=== PATIENT | female | born 1960 | race Caucasian/White ===

== ENCOUNTER → 2017-09-04 16:28 | Outpatient (CLI) | payer OTHER, SELFPAY ==
[2017-09-04 17:16] LABS: Absolute Lymphocyte Count 2.36 X10^3/ul (0.83-4.51); Absolute Neutrophil Count 2.8 X10^3/uL (2.0-7.7); Basophil# 0.01 X10^3/uL; Basophil% 0.2 % (0-1); Eosinophil# 0.15 X10^3/uL; Eosinophils% 2.6 % (0-5); Hematocrit 37.9 % (37-47); Hemoglobin 12.4 g/dl (12.0-15.0); Lymphocyte # 2.36 X10^3/ul (4.0); Mean Corp Hgb Conc 32.7 g/gl (32-36); Mean Corpuscular Hgb 32.2 pg (27.0-32.0); Mean Corpuscular Volume 98.4 fL (81-99); Mean Platelet Vol. 9.3 fl (6.2-12.0); Monocyte# 0.42 X10^3/uL; Monocyte% 7.3 % (0-10); Neutrophil # 2.81 X10^3/uL (2.7-7.7); Neutrophil % 48.9 % (47-70); Platelet Count 292 K/mm3 (150-450); RBC Distribution Width CV 12.6 % (11.6-14.6); RBC Distribution Width SD 44.8 fl (35.1-43.9); Red Blood Count 3.85 M/mm3 (4.2-5.4); White Blood Count 5.8 K/mm3 (4.4-11.0)
[2017-09-04 17:21] LABS: POSITIVE COUNT NO; POSITIVE DIFFERENTIAL NO
[2017-09-04 17:22] LABS: POSITIVE MORPHOLOGY NO
[2017-09-04 17:55] LABS: Vitamin D,25 Hydroxy 21.6 ng/mL (29.95-100.01)
[2017-09-04 18:01] LABS: ALB/GLOB Ratio 1.1 RATIO (0.9-2.4); AST(SGOT) 32 U/L (15-37); Alanine Aminotransfer ALT/SGPT 19 U/L (13-56); Albumin, Serum 3.6 g/dL (3.2-5.0); Alkaline Phosphatase 109 U/L (45-117); Anion Gap 10 (5-15); BUN 19 mg/dL (7-18); BUN/Creat Ratio 20.1 RATIO (10-20); Calcium,Total 8.1 mg/dL (8.5-10.1); Chloride 107 mmol/L (98-107); Creatinine, Serum 0.94 mg/dL (0.55-1.02); EST Glomerular Filtration Rate 65 mL/min (>60); Est Glom Filt Rate - Afr Amer 79 mL/min (>60); Globulin 3.4 g/dL (2.2-4.2); Glucose 115 mg/dL (74-106); Potassium 3.5 mmol/L (3.5-5.1); Sodium Level 143 mmol/L (136-145); Thyroid Stim Hormone (TSH) 0.87 uIU/mL (0.358-3.74)
[2017-09-06 11:04] LABS: Hep C Antibodies <0.1 s/co ratio (0.0-0.9)
== END ==
PROVIDERS: Family Provider Family Medicine Geriatric Medicine; PCP Family Medicine Geriatric Medicine; Visit Provider Family Medicine Geriatric Medicine
DX: E55.9 Vitamin D deficiency, unspecified (principal); R53.83 Other fatigue; Z13.89 Encounter for screening for other disorder
CPT/HCPCS: 36415; 80053; 82306; 84443; 85025; 86803

== ENCOUNTER → 2017-09-12 11:43 | Outpatient (CLI) | payer OTHER, SELFPAY ==
--- NOTE | 2017-09-12 | LES_PTH ---
PATIENT: PORTER MUSA LOC: POL[facility]3 U#:[id number] AGE/SX: 64/F ROOM: RE09/12/[address]: Dr. Renato Bonilla MD : 1960 BED: DIS: SPEC #: [id number] RECD: 09/12/17 14:31 STATUS: DELORES MEGHAN #: [id number] TAHIRA: 09/12/17 00:[address]: Renato Bonilla [facility] DEPT: SURGICAL PATHOLOGY RECD BY: Kristi Tate Tissues: Skin of forehead Procedures: Surgery Specimen Level IV HEADER OPERATION: Not noted PRE-OP DIAGNOSIS: L98.9 TISSUE SUBMITTED: Forehead MICROSCOPIC DIAGNOSIS Forehead lesion, shave biopsy: Solar elastosis. Consistent with lentigo. Negative for malignancy. SJ:vik 09/13/17 MICROSCOPIC DESCRIPTION Slides are reviewed. GROSS DESCRIPTION Received is one container labeled with the patient's name and not further designated. The specimen consists of a light marshall shave biopsy of skin measuring 0.6 x 0.5 x 0.1 cm. The specimen is totally submitted in one cassette. / AM:vik 09/12/17 TC:5 [facility]: [id number]
== END ==
PROVIDERS: Family Provider Family Medicine Geriatric Medicine; PCP Family Medicine Geriatric Medicine; Visit Provider Family Medicine Geriatric Medicine
DX: L57.8 Other skin changes due to chronic exposure to nonionizing radiation (principal)
CPT/HCPCS: 88305

== ENCOUNTER → 2018-09-05 16:22 | Outpatient (CLI) | payer OTHER, SELFPAY ==
[2018-09-05 16:51] LABS: Absolute Lymphocyte Count 2.05 X10^3/ul (0.83-4.51); Absolute Neutrophil Count 3.2 X10^3/uL (2.0-7.7); Basophil# 0.03 X10^3/uL; Basophil% 0.5 % (0-1); Eosinophil# 0.13 X10^3/uL; Eosinophils% 2.2 % (0-5); Hematocrit 42.5 % (37-47); Hemoglobin 13.6 g/dl (12.0-15.0); Lymphocyte # 2.05 X10^3/ul (4.0); Lymphocyte % 34.8 % (19-41); Mean Corpuscular Hgb 31.7 pg (27.0-32.0); Mean Corpuscular Volume 99.1 fL (81-99); Mean Platelet Vol. 9.5 fl (6.2-12.0); Monocyte# 0.49 X10^3/uL; Monocyte% 8.3 % (0-10); Neutrophil # 3.18 X10^3/uL (2.7-7.7); Platelet Count 297 K/mm3 (150-450); RBC Distribution Width CV 12.8 % (11.6-14.6); RBC Distribution Width SD 46.4 fl (35.1-43.9); Red Blood Count 4.29 M/mm3 (4.2-5.4); White Blood Count 5.9 K/mm3 (4.4-11.0)
[2018-09-05 16:54] LABS: POSITIVE COUNT NO; POSITIVE DIFFERENTIAL NO; POSITIVE MORPHOLOGY NO
[2018-09-05 17:28] LABS: Vitamin D,25 Hydroxy 25.4 ng/mL (29.95-100.01)
[2018-09-05 17:33] LABS: ALB/GLOB Ratio 1.2 RATIO (0.9-2.4); AST(SGOT) 22 U/L (15-37); Alanine Aminotransfer ALT/SGPT 21 U/L (13-56); Albumin, Serum 4.1 g/dL (3.2-5.0); Alkaline Phosphatase 107 U/L (45-117); Anion Gap 8 (5-15); BUN 15 mg/dL (7-18); BUN/Creat Ratio 16.6 RATIO (10-20); Calcium,Total 8.8 mg/dL (8.5-10.1); Chloride 105 mmol/L (98-107); EST Glomerular Filtration Rate 69 mL/min (>60); Est Glom Filt Rate - Afr Amer 83 mL/min (>60); Globulin 3.4 g/dL (2.2-4.2); Glucose 122 mg/dL (74-106); Protein, Total 7.5 g/dL (6.4-8.2); Sodium Level 142 mmol/L (136-145); Thyroid Stim Hormone (TSH) 1.24 uIU/mL (0.358-3.74)
== END ==
PROVIDERS: Family Provider Family Medicine Geriatric Medicine; PCP Family Medicine Geriatric Medicine; Visit Provider Family Medicine Geriatric Medicine
DX: E55.9 Vitamin D deficiency, unspecified (principal); R53.83 Other fatigue
CPT/HCPCS: 36415; 80053; 82306; 84443; 85025

== ENCOUNTER → 2018-09-21 12:57 | Outpatient (CLI) | payer OTHER, SELFPAY ==
--- NOTE | 2018-09-21 13:05 | CT_ITS ---
STUDY: LOW DOSE CT LUNG CANCER SCREENING REASON FOR EXAM: Female, 57 years old. 39 pack-year history. Current smoker. RADIATION DOSAGE (If Supplied By Facility): CTDIvol = ( 1.70 ) mGy, DLP = ( 59.13 ) mGycm TECHNIQUE: No contrast was administered. Low dose technique was utilized (average mAS-38 and kVp 120). 1.25 mm axial source images with a slice interval of 1.25-mm were reconstructed in lung windows. 2.5 mm axial source images with a slice interval of 2.5-mm were reconstructed in lung windows. 5.0 mm axial source images with a slice interval of 5.0-mm were reconstructed in soft tissue windows. Nodule measured using lung windows on PACS and/or independent workstation with automated measurement of minimum and maximum diameter. Nodule measurement reported as average diameter rounded to the nearest whole number. Growth is defined as an increase ins size of greater than 1.5 mm. COMPARISON: Chest with left RIBS, May 19, 2015. There is limited visualization of the anterior lower lungs due to scatter artifact from nipple rings. The patient refused to remove these prior to the study. NODULES: Total lung nodules (excluding granulomas): 0 Emphysema: There is diffuse emphysematous changes throughout both lungs. Endobronchial lesion: None Aorta: Minimal atherosclerotic changes of the thoracic aorta without aneurysm. Coronary arteries: None Heart: Normal in size Pulmonary artery: Normal in size Mediastinal nodes: None Other chest and abdominal findings: Minimal degenerative changes of the lumbar spine. CT/Low Dose CT Lung Screening IMPRESSION: Lung-RADS category 1 - Continue annual screening with LDCT in 12 months. IMPORTANT NOTES FOR USE: ACR Lung-RADS Version 1.0 Assessment Categories Release Date: October 28, 2013 Category: Coded 0-4 bases on nodule(s) with highest degree of suspicion. Negative screen is defined as categories 1 and 2; a positive screen is defined as categories 3 and 4. Category 3 and 4A nodules that are unchanged on interval CT should be coded as category 2, and individuals returned to screening in 12 months. Category 4X: Category 3 or 4 nodules with additional imaging findings that increase the suspicion of lung cancer, such as spiculation, GGN that doubles in size in 1 year, enlarged lymph notes, etc. Category Modifiers: S (significant finding unrelated to lung cancer) and C (prior history of treated lung cancer) may be added to the 0-4 Lung-RADS Electronically Signed: Eric Santos DO at 9:25 EDT Tel [phone], Service support ,
== END ==
PROVIDERS: Family Provider Family Medicine Geriatric Medicine; PCP Family Medicine Geriatric Medicine; Referring Provider Family Medicine Geriatric Medicine; Visit Provider Family Medicine Geriatric Medicine
DX: Z87.891 Personal history of nicotine dependence (principal)
CPT/HCPCS: G0297

== ENCOUNTER → 2019-09-09 16:35 | Outpatient (CLI) | payer OTHER, SELFPAY ==
[2019-09-09 17:45] LABS: Absolute Lymphocyte Count 2.23 X10^3/uL (0.83-4.51); Absolute Neutrophil Count 2.9 X10^3/uL (2.0-7.7); Basophil# 0.04 X10^3/uL; Basophil% 0.7 % (0-1); Eosinophil# 0.19 X10^3/uL; Eosinophils% 3.2 % (0-5); Hematocrit 41.2 % (37-47); Hemoglobin 13.5 g/dL (12.0-15.0); Lymphocyte # 2.23 X10^3/ul (4.0); Lymphocyte % 38.1 % (19-41); Mean Corp Hgb Conc 32.8 g/dL (32-36); Mean Corpuscular Hgb 31.6 pg (27.0-32.0); Mean Corpuscular Volume 96.5 fL (81-99); Mean Platelet Vol. 9.3 fl (6.2-12.0); Monocyte# 0.52 X10^3/uL; Monocyte% 8.9 % (0-10); NRBC Flagged by Analyzer 0 % (0-5); Neutrophil # 2.86 X10^3/uL (2.7-7.7); Neutrophil % 48.9 % (47-70); Platelet Count 292 K/mm3 (150-450); RBC Distribution Width CV 12.9 % (11.6-14.6); RBC Distribution Width SD 46.1 fl (35.1-43.9); Red Blood Count 4.27 M/mm3 (4.2-5.4); White Blood Count 5.9 K/mm3 (4.4-11.0)
[2019-09-09 17:59] LABS: Vitamin D,25 Hydroxy 55.8 ng/mL
[2019-09-09 18:06] LABS: AST(SGOT) 32 U/L (15-37); Alanine Aminotransfer ALT/SGPT 26 U/L (13-56); Albumin, Serum 3.7 g/dL (3.2-5.0); Alkaline Phosphatase 102 U/L (45-117); Anion Gap 3 (5-15); BUN 20 mg/dL (7-18); Calcium,Total 8.9 mg/dL (8.5-10.1); Chloride 110 mmol/L (98-107); Creatinine, Serum 0.91 mg/dL (0.55-1.02); EST Glomerular Filtration Rate 68 mL/min (>60); Est Glom Filt Rate - Afr Amer 82 mL/min (>60); Globulin 3.6 g/dL (2.2-4.2); Glucose 109 mg/dL (74-106); Protein, Total 7.3 g/dL (6.4-8.2); Sodium Level 140 mmol/L (136-145); Thyroid Stim Hormone (TSH) 1.52 uIU/mL (0.358-3.74)
== END ==
PROVIDERS: PCP Family Medicine Geriatric Medicine; Visit Provider Family Medicine Geriatric Medicine
DX: I10 Essential (primary) hypertension (principal); E55.9 Vitamin D deficiency, unspecified
CPT/HCPCS: 36415; 80053; 82306; 84443; 85025

== ENCOUNTER → 2020-04-10 09:34 | Outpatient (CLI) | payer OTHER, SELFPAY ==
--- NOTE | 2020-04-10 09:38 | RAD_ITS ---
STUDY: X-RAY - CERVICAL SPINE REASON FOR EXAM: Female, 59 years old. UPPER BACK AND NECK PAIN, NO INJURY TECHNIQUE: 3 view(s) of the cervical spine were obtained. COMPARISON: None FINDINGS: Normal anterior atlantoaxial articulation. Normal odontoid process. Straightening of the C-spine curve. Normal vertebral bodies and endplates. Minimal disc space height narrowing at C4-C5, C5-C6 and C6-C7 disc space levels. The soft tissue structures are unremarkable. RAD/Cerv Spine 2 or 3 Views IMPRESSION: 1. Minimal disc space height narrowing at C4-C5, C5-C6 and C6-C7 disc space levels. 2. No acute osseous abnormality of the cervical spine. Electronically Signed: Loc Shoemaker MD at 12:06 EDT , Service support ,
--- NOTE | 2020-04-10 09:38 | RAD_ITS ---
STUDY: X-RAY - THORACIC SPINE REASON FOR EXAM: Female, 59 years old. Upper back pain and neck pain. No injury. TECHNIQUE: 3 view(s) of the thoracic spine were obtained. COMPARISON: None. FINDINGS: Normal kyphosis of the thoracic spine. There is no substantial scoliosis. Normal thoracic vertebrae and endplates. Normal disc space heights. The soft tissue structures are unremarkable. RAD/Thoracic Spine 3 Views IMPRESSION: Normal x-ray examination of the thoracic spine. Electronically Signed: Loc Shoemaker MD at 16:05 EDT , Service support ,
== END ==
PROVIDERS: PCP Family Medicine Geriatric Medicine; Referring Provider Family Medicine Geriatric Medicine; Visit Provider Family Medicine Geriatric Medicine
DX: M54.9 Dorsalgia, unspecified (principal)
CPT/HCPCS: 72040; 72072

== ENCOUNTER → 2020-09-09 16:28 | Outpatient (CLI) | payer OTHER, SELFPAY ==
[2020-09-09 17:27] LABS: Absolute Lymphocyte Count 2.09 X10^3/uL (0.83-4.51); Basophil# 0.03 X10^3/uL; Basophil% 0.5 % (0-1); Eosinophil# 0.16 X10^3/uL; Eosinophils% 2.8 % (0-5); Hematocrit 37.8 % (37-47); Hemoglobin 12.3 g/dL (12.0-15.0); Lymphocyte # 2.09 X10^3/ul (4.0); Mean Corp Hgb Conc 32.5 g/dL (32-36); Mean Corpuscular Hgb 31.8 pg (27.0-32.0); Mean Corpuscular Volume 97.7 fL (81-99); Mean Platelet Vol. 9.7 fl (6.2-12.0); Monocyte# 0.48 X10^3/uL; Monocyte% 8.3 % (0-10); NRBC Flagged by Analyzer 0 % (0-5); Neutrophil # 3.02 X10^3/uL (2.7-7.7); Neutrophil % 52.1 % (47-70); Platelet Count 306 K/mm3 (150-450); RBC Distribution Width CV 12.6 % (11.6-14.6); RBC Distribution Width SD 44.9 fl (35.1-43.9); Red Blood Count 3.87 M/mm3 (4.2-5.4); White Blood Count 5.8 K/mm3 (4.4-11.0)
[2020-09-09 17:45] LABS: Vitamin D,25 Hydroxy 41.6 ng/mL
[2020-09-09 18:07] LABS: ALB/GLOB Ratio 1.2 RATIO (0.9-2.4); AST(SGOT) 29 U/L (15-37); Alanine Aminotransfer ALT/SGPT 26 U/L (13-56); Albumin, Serum 3.8 g/dL (3.2-5.0); Alkaline Phosphatase 103 U/L (45-117); Anion Gap 6 (5-15); BUN 14 mg/dL (7-18); BUN/Creat Ratio 15.3 RATIO (10-20); Calcium,Total 9.1 mg/dL (8.5-10.1); Chloride 106 mmol/L (98-107); Creatinine, Serum 0.92 mg/dL (0.55-1.02); EST Glomerular Filtration Rate 67 mL/min (>60); Est Glom Filt Rate - Afr Amer 81 mL/min (>60); Globulin 3.3 g/dL (2.2-4.2); Glucose 93 mg/dL (74-106); Potassium 3.9 mmol/L (3.5-5.1); Protein, Total 7.1 g/dL (6.4-8.2); Sodium Level 139 mmol/L (136-145)
== END ==
PROVIDERS: PCP Family Medicine Geriatric Medicine; Visit Provider Family Medicine Geriatric Medicine
DX: I10 Essential (primary) hypertension (principal); E55.9 Vitamin D deficiency, unspecified
CPT/HCPCS: 36415; 80053; 82306; 84443; 85025

== ENCOUNTER → 2020-09-24 16:12 | Outpatient (CLI) | payer OTHER, SELFPAY ==
[2020-09-24 17:42] LABS: Anion Gap 8 (5-15); BUN 26 mg/dL (7-18); BUN/Creat Ratio 27.4 RATIO (10-20); Chloride 100 mmol/L (98-107); Creatinine, Serum 0.95 mg/dL (0.55-1.02); EST Glomerular Filtration Rate 64 mL/min (>60); Est Glom Filt Rate - Afr Amer 78 mL/min (>60); Glucose 83 mg/dL (74-106); Potassium 3.7 mmol/L (3.5-5.1); Sodium Level 138 mmol/L (136-145)
== END ==
PROVIDERS: PCP Family Medicine Geriatric Medicine; Visit Provider Family Medicine Geriatric Medicine
DX: I10 Essential (primary) hypertension (principal)
CPT/HCPCS: 36415; 80048

== ENCOUNTER → 2021-06-30 16:31 | Outpatient (CLI) | payer OTHER, SELFPAY ==
[2021-06-30 17:00] LABS: Anion Gap 6 (5-15); BUN 25 mg/dL (7-18); BUN/Creat Ratio 26.6 RATIO (10-20); Calcium,Total 8.9 mg/dL (8.5-10.1); Chloride 103 mmol/L (98-107); Creatinine, Serum 0.94 mg/dL (0.55-1.02); EST Glomerular Filtration Rate 65 mL/min (>60); Est Glom Filt Rate - Afr Amer 78 mL/min (>60); Glucose 98 mg/dL (74-106); Potassium 3.5 mmol/L (3.5-5.1); Sodium Level 139 mmol/L (136-145)
== END ==
PROVIDERS: PCP Family Medicine Geriatric Medicine; Visit Provider Family Medicine Geriatric Medicine
DX: I10 Essential (primary) hypertension (principal)
CPT/HCPCS: 36415; 80048

== ENCOUNTER 2021-08-11 16:53 | Outpatient (CLI) | payer OTHER, SELFPAY ==
[2021-08-11 17:53] LABS: Anion Gap 5 (5-15); BUN 19 mg/dL (7-18); BUN/Creat Ratio 22.5 RATIO (10-20); Calcium,Total 8.8 mg/dL (8.5-10.1); Chloride 106 mmol/L (98-107); Creatinine, Serum 0.85 mg/dL (0.55-1.02); EST Glomerular Filtration Rate 73 mL/min (>60); Est Glom Filt Rate - Afr Amer 89 mL/min (>60); Glucose 93 mg/dL (74-106); Potassium 4.3 mmol/L (3.5-5.1); Sodium Level 139 mmol/L (136-145)
[2021-08-11 18:10] LABS: Absolute Lymphocyte Count 2.16 X10^3/uL (0.83-4.51); Absolute Neutrophil Count 3.9 X10^3/uL (2.0-7.7); Basophil# 0.03 X10^3/uL; Basophil% 0.4 % (0-1); Eosinophil# 0.12 X10^3/uL; Eosinophils% 1.8 % (0-5); Hematocrit 36.7 % (37-47); Hemoglobin 12.6 g/dL (12.0-15.0); Lymphocyte # 2.16 X10^3/ul (0.83-4.51); Lymphocyte % 31.8 % (19-41); Mean Corp Hgb Conc 34.3 g/dL (32-36); Mean Corpuscular Hgb 32.9 pg (27.0-32.0); Mean Corpuscular Volume 95.8 fL (81-99); Mean Platelet Vol. 9.4 fl (6.2-12.0); Monocyte# 0.53 X10^3/uL; Monocyte% 7.8 % (0-10); NRBC Flagged by Analyzer 0 % (0-5); Neutrophil # 3.93 X10^3/uL (2.7-7.7); Neutrophil % 57.9 % (47-70); Platelet Count 280 K/mm3 (150-450); RBC Distribution Width CV 13.5 % (11.6-14.6); RBC Distribution Width SD 47.7 fl (35.1-43.9); Red Blood Count 3.83 M/mm3 (4.2-5.4); White Blood Count 6.8 K/mm3 (4.4-11.0)
== END 2021-08-11 23:59 | disposition home or self-care (01) ==
LOC: POLAB3 16:54
PROVIDERS: PCP Family Medicine Geriatric Medicine; Visit Provider Family Medicine Geriatric Medicine
DX: D64.9 Anemia, unspecified (principal)
CPT/HCPCS: 36415; 80048; 85025

== ENCOUNTER 2021-09-27 17:17 | Outpatient (CLI) | payer OTHER, SELFPAY ==
--- NOTE | 2021-09-27 17:30 | CT_ITS ---
STUDY: LOW DOSE CT LUNG CANCER SCREENING REASON FOR EXAM: Female, 60 years old. Long history of smoking. Screening for lung cancer. TECHNIQUE: No contrast was administered. Low dose technique was utilized (average mAS-38 and kVp 120). 1.25 mm axial source images with a slice interval of 1.25-mm were reconstructed in lung windows. 2.5 mm axial source images with a slice interval of 2.5-mm were reconstructed in lung windows. 5.0 mm axial source images with a slice interval of 5.0-mm were reconstructed in soft tissue windows. Nodule measured using lung windows on PACS and/or independent workstation with automated measurement of minimum and maximum diameter. Nodule measurement reported as average diameter rounded to the nearest whole number. Growth is defined as an increase ins size of greater than 1.5 mm. COMPARISON: 09/21/2018. NODULES: There is hyperinflation and centrilobular emphysema of the lungs consistent with chronic obstructive lung disease (COPD). There are no suspicious lung nodules There are no endobronchial lesions. There is no demonstrated pleural abnormality. Normal heart and pericardium. Normal mediastinum. Normal hilar regions. Normal unenhanced pulmonary arteries. Normal aorta arch and descending thoracic aorta. Normal osseous structures. There is no demonstrated abnormality of the visualized upper abdomen. CT/Low Dose CT Lung Screening IMPRESSION: Lung-RADS category 2. COPD. Benign finding. Recommendation: Routine screening CT scan in one year. IMPORTANT NOTES FOR USE: ACR Lung-RADS Version 1.0 Assessment Categories Release Date: October 28, 2013 Category: Coded 0-4 bases on nodule(s) with highest degree of suspicion. Negative screen is defined as categories 1 and 2; a positive screen is defined as categories 3 and 4. Category 3 and 4A nodules that are unchanged on interval CT should be coded as category 2, and individuals returned to screening in 12 months. Category 4X: Category 3 or 4 nodules with additional imaging findings that increase the suspicion of lung cancer, such as spiculation, GGN that doubles in size in 1 year, enlarged lymph notes, etc. Category Modifiers: S (significant finding unrelated to lung cancer) and C (prior history of treated lung cancer) may be added to the 0-4 Lung-RADS Electronically Signed: Zaki Haider MD at 5:14 EDT ,
== END 2021-09-27 23:59 | disposition home or self-care (01) ==
PROVIDERS: PCP Family Medicine Geriatric Medicine; Visit Provider Family Medicine Geriatric Medicine
DX: F17.210 Nicotine dependence, cigarettes, uncomplicated (principal)
CPT/HCPCS: 71271

== ENCOUNTER 2021-10-07 10:43 | Outpatient (CLI) | payer OTHER, SELFPAY ==
--- NOTE | 2021-10-08 10:32 | PFT ---
INTRODUCTION: The patient is a 61-year-old female that presents for pulmonary function studies secondary to a diagnosis of shortness of breath. Respiratory therapy reported good patient effort. Bronchodilators were used during testing. INTERPRETATION: Forced expiration spirometry demonstrates the presence of a mild large airways obstructive ventilatory defect. There was no significant response to aerosolized bronchodilators. Spirograms are of good quality but do not plateau indicating slow emptying of the lungs. Body plethysmography was performed and reveals lung volumes to be within normal limits. Diffusing capacity by single breath CO is within normal limits. IMPRESSION: Irreversible mild large airways obstructive ventilatory defect with preserved lung volumes and diffusing capacity.
== END 2021-10-07 23:59 | disposition home or self-care (01) ==
PROVIDERS: PCP Family Medicine Geriatric Medicine; Referring Provider Family Medicine Geriatric Medicine; Visit Provider Family Medicine Geriatric Medicine
DX: R06.02 Shortness of breath (principal)
CPT/HCPCS: 94060; 94726; 94729

== ENCOUNTER 2021-10-14 16:35 | Outpatient (CLI) | payer OTHER, SELFPAY ==
[2021-10-14 17:25] LABS: Absolute Lymphocyte Count 1.72 X10^3/uL (0.83-4.51); Absolute Neutrophil Count 3.1 X10^3/uL (2.0-7.7); Basophil# 0.04 X10^3/uL; Basophil% 0.7 % (0-1); Eosinophil# 0.21 X10^3/uL; Eosinophils% 3.7 % (0-5); Hematocrit 41.4 % (37-47); Hemoglobin 13.4 g/dL (12.0-15.0); Lymphocyte # 1.72 X10^3/ul (0.83-4.51); Lymphocyte % 30.4 % (19-41); Mean Corp Hgb Conc 32.4 g/dL (32-36); Mean Corpuscular Hgb 31.4 pg (27.0-32.0); Monocyte# 0.55 X10^3/uL; Monocyte% 9.7 % (0-10); NRBC Flagged by Analyzer 0 % (0-5); Neutrophil # 3.13 X10^3/uL (2.7-7.7); Neutrophil % 55.3 % (47-70); Platelet Count 281 K/mm3 (150-450); RBC Distribution Width CV 12.1 % (11.6-14.6); RBC Distribution Width SD 43.4 fl (35.1-43.9); Red Blood Count 4.27 M/mm3 (4.2-5.4); White Blood Count 5.7 K/mm3 (4.4-11.0)
[2021-10-14 18:03] LABS: Vitamin D,25 Hydroxy 50.1 ng/mL
[2021-10-14 18:10] LABS: ALB/GLOB Ratio 1.1 RATIO (0.9-2.4); AST(SGOT) 23 U/L (15-37); Alanine Aminotransfer ALT/SGPT 24 U/L (13-56); Albumin, Serum 3.8 g/dL (3.2-5.0); Alkaline Phosphatase 98 U/L (45-117); Anion Gap 5 (5-15); BUN 22 mg/dL (7-18); BUN/Creat Ratio 20.6 RATIO (10-20); Calcium,Total 9.2 mg/dL (8.5-10.1); Chloride 106 mmol/L (98-107); Creatinine, Serum 1.07 mg/dL (0.55-1.02); EST Glomerular Filtration Rate 56 mL/min (>60); Est Glom Filt Rate - Afr Amer 68 mL/min (>60); Globulin 3.5 g/dL (2.2-4.2); Glucose 82 mg/dL (74-106); Protein, Total 7.3 g/dL (6.4-8.2); Sodium Level 140 mmol/L (136-145); Thyroid Stim Hormone (TSH) 1.31 uIU/mL (0.358-3.74)
== END 2021-10-14 23:59 | disposition home or self-care (01) ==
LOC: POLAB3 16:36
PROVIDERS: PCP Family Medicine Geriatric Medicine; Visit Provider Family Medicine Geriatric Medicine
DX: I10 Essential (primary) hypertension (principal); E55.9 Vitamin D deficiency, unspecified
CPT/HCPCS: 36415; 80053; 82306; 84443; 85025

== ENCOUNTER 2022-02-17 06:13 | Day surgery (SDC) | payer OTHER, SELFPAY ==
[2022-02-17] VITALS (8 sets, daily range): BP systolic 91–145; BP diastolic 59–81; PULSE 66–77; RESP 14–16; TEMP 36.2–36.6; O2SAT 100; BMI 20.7
--- NOTE | 2022-02-17 06:31 | PCM.HP.STD ---
HPI - General General Date of Admission: 02/17/22 Date of Service: 02/17/22 Chief Complaint: Screening colonoscopy HPI Monica MUSA, is a 61 F who presents for a screening colonoscopy. She has a past medical history of mild hypertension and mild anemia. Her blood pressure is controlled she does take a daily iron supplement. She is not having any problems with her bowels. She is not have any nausea, vomiting or diarrhea. She has not had any bleeding. She is not have any abdominal pain. Overall she is in very good health. All other 16 review of systems are negative except as pertinent positive mentioned [facility] Medical History (Updated 02/15/22 @ 11:15 by Lian Montenegro) Arthritis Back pain Easy bruising Excessive bleeding Former smoker History of IBS Hyperlipidemia Hypertension Muscle spasm Post-menopausal Restless legs Wears contact lenses Home Medications cyclobenzaprine 10 mg tablet 10 mg PO HS 11/12/21 [History Last Taken Unknown] iron 18 mg tablet 18 mg PO DAILY 11/12/21 [History Last Taken Unknown] losartan 100 mg-hydrochlorothiazide 12.5 mg tablet 0.5 tab PO DAILY 11/12/21 [History Last Taken Unknown] magnesium oxide 400 mg PO DAILY 11/12/21 [History Last Taken Unknown] ascorbic acid (vitamin C) 500 mg tablet (Vitamin C) 500 mg PO DAILY 02/15/22 [History Last Taken Unknown] cholecalciferol (vitamin D3) 25 mcg (1,000 unit) tablet (Vitamin D3) 25 mcg PO DAILY 02/15/22 [History Last Taken Unknown] zinc 50 mg tablet 50 mg PO DAILY 02/15/22 [History Last Taken Unknown] Allergy/AdvReac Type Severity Reaction Status Date / Time No Known Allergies Allergy Verified 02/17/22 06:32 Surgical History (Updated 02/15/22 @ 11:15 by Lian Montenegro) Hx of colonoscopy Hx of hysterectomy Social History (Updated 11/12/21 @ 10:17 by Addie Bryan) Smoking Status: Former smoker ROS Review of Systems ROS Unobtainable: other Constitutional Constitutional: Denies fatigue, fever(s), poor appetite, weight gain or weight loss ENT HEENT: Denies mouth lesions Cardiovascular Cardiovascular: Denies abdominal bloating, abdominal edema or abdominal pain Respiratory/Chest Respiratory/Chest: Denies change in mental status, change in phlegm color, chest congestion or chest tightness Gastrointestinal Gastrointestinal: Denies belching, bloating, change in bowel habits, change in stool character, chewing difficulty, coffee ground emesis, constipation, cramping, diarrhea, dyspepsia, dysphagia, early satiety, excessive flatus, fecal incontinence, heartburn, hematemesis, hematochezia, hemorrhoids, loose stools, melena, nausea, odynophagia, rectal bleeding, tenesmus, vomiting or weight changes Genitourinary Genitourinary: Denies abdominal discomfort, burning urination or itching Musculoskeletal Musculoskeletal: Reports as per HPI; Denies muscle weakness or myalgias Integumentary Integumentary: Denies jaundice Neurologic Neurologic: Denies lack of coordination or weakness Psychiatric Psychiatric: Denies confusion, depression, memory loss, mood swings, paranoia or suicidal ideation Endocrine Endocrinology: Denies systems reviewed and no addt'l complaints, except as documented Hematologic/Lymphatic Hematologic/Lymphatic: Denies anemia, easy bleeding, easy bruising or lymphadenopathy Allergic/Immunologic Allergic/Immunologic: Denies systems reviewed and no addt'l complaints, except as documented Physical Exam Const alert General Appearance: cooperative Orientation / Consciousness: oriented to person HEENT hearing grossly normal bilaterally Head and Scalp: normal to inspection Face and Sinus: face symmetric Nose: external nose normal Mouth: oral and palatal mucosa normal Eyes conjunctivae normal General Eye: normal appearance of both eyes Neck full ROM General: normal visual inspection Lymph Lymphatic: no lymphadenopathy noted Chest inspection of chest normal and palpation of chest normal Chest: symmetrical chest wall rise Resp normal respiratory effort Effort and Inspection: able to speak in complete sentences Cardio regular rate GI non-distended Percussion: normal to percussion Rectal Exam: deferred Neuro Speech: speech normal Gait (Neuro): normal gait Assessment & Plan Assessment/Plan (1) Encounter for screening for malignant neoplasm of colon: PLAN: She will undergo screening colonoscopy. She was explained alternatives, risk, benefits including not withstanding bleeding, infection, sepsis, perforation, need for emergent surgery and . She will have an ASA of 1.
[2022-02-17] MEDS: Lactated Ringers 1,000 ML 15 ML IV (06:44)
--- NOTE | 2022-02-17 07:34 | OP.COLON_ITS ---
Patient Name: Amie Ryan Procedure Date: 02/17/2022 7:05 AM Date of : 1960 Age: 61 Procedure: Colonoscopy Indications: Screening for colorectal malignant neoplasm Providers: José Luis Leach DO Referring MD: Renato Bonilla MD Medicines: Monitored Anesthesia Care Patient Profile: This is a 61 year old female. Refer to note in patient chart for documentation of history and physical. Last Colonoscopy: 5 years ago. Complications: No immediate complications. Procedure: Pre-Anesthesia Assessment: - Prior to the procedure, a History and Physical was performed, and patient medications and allergies were reviewed. The patient is competent. The risks and benefits of the procedure and the sedation options and risks were discussed with the patient. All questions were answered and informed consent was obtained. Patient identification and proposed procedure were verified by the physician in the pre-procedure area. Mental Status Examination: alert and oriented. Airway Examination: normal oropharyngeal airway and neck mobility. Respiratory Examination: clear to auscultation. CV Examination: normal. Prophylactic Antibiotics: The patient does not require prophylactic antibiotics. Prior Anticoagulants: The patient has taken no previous anticoagulant or antiplatelet agents. ASA Grade Assessment: II - A patient with mild systemic disease. After reviewing the risks and benefits, the patient was deemed in satisfactory condition to undergo the procedure. The anesthesia plan was to use moderate sedation / analgesia (conscious sedation). Immediately prior to administration of medications, the patient was re-assessed for adequacy to receive sedatives. The heart rate, respiratory rate, oxygen saturations, blood pressure, adequacy of pulmonary ventilation, and response to care were monitored throughout the procedure. The physical status of the patient was re-assessed after the procedure. After I obtained informed consent, the scope was passed under direct vision. Throughout the procedure, the patient's blood pressure, pulse, and oxygen saturations were monitored continuously. The colonoscope was introduced through the anus and advanced to the cecum, identified by appendiceal orifice and ileocecal valve. The colonoscopy was performed with ease. The patient tolerated the procedure well. The quality of the bowel preparation was good. Scope In: 7:15:41 AM Scope Withdrawal Time 0 hours 8 minutes 23 seconds Scope Out: 7:29:44 AM Total Procedure Duration Time 0 hours 14 minutes 3 seconds Findings: The perianal and digital rectal examinations were normal. The colon (entire examined portion) appeared normal. No additional abnormalities were found on retroflexion. Impression: - The entire examined colon is normal. - No specimens collected. Recommendation: - Discharge patient to home. - Resume previous diet. - Continue present medications. - Repeat colonoscopy in 5 years for surveillance. Procedure Code(s): --- Professional --- G0121, Colorectal cancer screening; colonoscopy on individual not meeting criteria for high risk CPT copyright 2017 [employer]. All rights reserved. The codes documented in this report are preliminary and upon road engineer review may be revised to meet current compliance requirements. José Luis Leach DO 02/17/2022 7:34:36 AM This report has been signed electronically. Number of Addenda: 1 Note Initiated On: 02/17/2022 7:05 AM Addendum Number: 1 Addendum Date: 04/07/2022 6:13:55 AM MAC was used as sedation for this procedure. José Luis Leach DO 04/07/2022 6:13:59 AM This report has been signed electronically.
--- NOTE | 2022-02-17 07:35 | OP.CCLET_ITS ---
04/07/2022 Renato Bonilla MD [address] [place] [address] Re : Colonoscopy procedure for Amie Ryan Dear Dr. Bonilla This procedure was performed on January. My impressions and recommendations are as follows: Impressions : - The entire examined colon is normal. - No specimens collected. Recommendations : - Discharge patient to home. - Resume previous diet. - Continue present medications. - Repeat colonoscopy in 5 years for surveillance. My findings are described in the full procedure note, which is enclosed. If I can be of further assistance, please feel free to contact me at . Sincerely, José Luis Leach DO 02/17/2022 7:34:36 AM This report has been signed electronically.
--- NOTE | 2022-02-17 07:42 | EKG12_ITS ---
Test Reason : RYTHMN CHANGE Blood Pressure : / mmHG Vent. Rate : 066 BPM Atrial Rate : 066 BPM P-R Int : 210 ms QRS Dur : 078 ms QT Int : 432 ms P-R-T Axes : 267 044 071 degrees QTc Int : 452 ms Unusual P axis, possible ectopic atrial rhythm Low voltage QRS (Limb Leads) Septal infarct , age undetermined Abnormal ECG Confirmed by NIELS CUI, SAM ([id number]), editorial project manager LAUREN MERAZ ([id number]) on 02/21/2022 9:07:43 AM Referred By: Renato Bonilla Confirmed By:SAM BOWSER MD
== END 2022-02-17 08:33 | disposition home or self-care (01) ==
LOC: EN 06:14 → AC 06:15
PROVIDERS: PCP Family Medicine Geriatric Medicine; Referring Provider Family Medicine Geriatric Medicine; Visit Provider Internal Medicine Gastroenterology
PROC: 0DJD8ZZ Inspection of Lower Intestinal Tract, Via Natural or Artificial Opening Endoscopic (ICD-10-PCS; CPT 45378; principal; 2022-02-17 07:10)
DX: Z12.11 Encounter for screening for malignant neoplasm of colon (principal); D64.9 Anemia, unspecified; I10 Essential (primary) hypertension; E78.5 Hyperlipidemia, unspecified; Z78.0 Asymptomatic menopausal state; Z79.899 Other long term (current) drug therapy; Z87.891 Personal history of nicotine dependence
CPT/HCPCS: 45378; 93005; J7120; J2405

== ENCOUNTER → 2022-09-22 | Outpatient (CLI) | payer OTHER, SELFPAY ==
[2022-09-22 18:24] LABS: Absolute Lymphocyte Count 1.77 X10^3/uL (0.83-4.51); Absolute Neutrophil Count 3.2 X10^3/uL (2.0-7.7); Basophil# 0.04 X10^3/uL; Basophil% 0.7 % (0-1); Eosinophil# 0.11 X10^3/uL; Hemoglobin 13.1 g/dL (12.0-15.0); Lymphocyte # 1.77 X10^3/ul (0.83-4.51); Lymphocyte % 31.8 % (19-41); Mean Corp Hgb Conc 32.8 g/dL (32-36); Mean Corpuscular Hgb 31.8 pg (27.0-32.0); Mean Corpuscular Volume 97.1 fL (81-99); Mean Platelet Vol. 9.6 fl (6.2-12.0); Monocyte# 0.44 X10^3/uL; Monocyte% 7.9 % (0-10); NRBC Flagged by Analyzer 0 % (0-5); Neutrophil # 3.19 X10^3/uL (2.7-7.7); Neutrophil % 57.4 % (47-70); Platelet Count 284 K/mm3 (150-450); RBC Distribution Width CV 12.3 % (11.6-14.6); RBC Distribution Width SD 44.2 fl (35.1-43.9); Red Blood Count 4.12 M/mm3 (4.2-5.4); White Blood Count 5.6 K/mm3 (4.4-11.0)
[2022-09-22 19:05] LABS: Vitamin D,25 Hydroxy 39.7 ng/mL
[2022-09-22 19:18] LABS: ALB/GLOB Ratio 1.2 RATIO (0.9-2.4); AST(SGOT) 29 U/L (15-37); Alanine Aminotransfer ALT/SGPT 18 U/L (13-56); Albumin, Serum 4.2 g/dL (3.2-5.0); Alkaline Phosphatase 81 U/L (45-117); Anion Gap 8 (5-15); BUN 23 mg/dL (7-18); BUN/Creat Ratio 19.2 RATIO (10-20); Calcium,Total 9.4 mg/dL (8.5-10.1); Chloride 106 mmol/L (98-107); EST Glomerular Filtration Rate 49 mL/min (>60); Est Glom Filt Rate - Afr Amer 59 mL/min (>60); Globulin 3.4 g/dL (2.2-4.2); Glucose 106 mg/dL (74-106); Potassium 3.9 mmol/L (3.5-5.1); Protein, Total 7.6 g/dL (6.4-8.2); Sodium Level 139 mmol/L (136-145); Thyroid Stim Hormone (TSH) 0.68 uIU/mL (0.358-3.74)
== END | disposition home or self-care (01) ==
LOC: POLAB3 16:30
PROVIDERS: PCP Family Medicine Geriatric Medicine; Visit Provider Family Medicine Geriatric Medicine
DX: R53.83 Other fatigue (principal); E55.9 Vitamin D deficiency, unspecified
CPT/HCPCS: 36415; 80053; 82306; 84443; 85025

== ENCOUNTER → 2022-11-02 | Outpatient (CLI) | payer OTHER, SELFPAY ==
--- NOTE | 2022-11-01 16:28 | BI_ITS ---
MAMMOGRAPHY - BILATERAL SCREENING REASON FOR EXAM: Female, 62 years old. Routine annual screening examination. PERTINENT HISTORY: Non-contributory. TECHNIQUE: Digital bilateral breast kris (3D mammographic acquisition) in the CC and MLO projections. 2-D mediolateral oblique (MLO) and craniocaudad (CC) views of both breasts were obtained. CAD: Full Field Digital Mammography with Computer Added Detection was performed. COMPARISON: Comparison is made with prior examination October 06, 2016. FINDINGS: Breast Composition: The breasts are extremely dense, which lowers the sensitivity of mammography. There are no dominant masses or suspicious calcifications. No other significant abnormalities are identified. There has been no significant change since the prior study. BI/SCRN MAMM (CAD)W/KRIS BILAT IMPRESSION: Stable bilateral screening mammogram. Yearly follow-up mammogram recommended. (A) ASSESSMENT CATEGORY: BIRADS Category 1: Negative. A letter regarding these results will be sent to the patient by the facility within 30 days. Approximately 10% of breast cancers are not detected by mammography. A normal mammogram should not delay biopsy of a clinically suspicious abnormality. [id number] Electronically Signed: Abdelrahman Garcia MD at 8:40 EDT ,
== END | disposition home or self-care (01) ==
PROVIDERS: PCP Family Medicine Geriatric Medicine; Referring Provider Family Medicine Geriatric Medicine; Visit Provider Family Medicine Geriatric Medicine
DX: Z12.31 Encounter for screening mammogram for malignant neoplasm of breast (principal)
CPT/HCPCS: 77063; 77067

== ENCOUNTER → 2023-01-17 | Outpatient (CLI) | payer OTHER, SELFPAY ==
[2023-01-17 17:42] LABS: Absolute Lymphocyte Count 1.77 X10^3/uL (0.83-4.51); Absolute Neutrophil Count 2.4 X10^3/uL (2.0-7.7); Basophil# 0.04 X10^3/uL; Basophil% 0.8 % (0-1); Eosinophil# 0.18 X10^3/uL; Eosinophils% 3.7 % (0-5); Hematocrit 38.4 % (37-47); Hemoglobin 12.5 g/dL (12.0-15.0); Lymphocyte # 1.77 X10^3/ul (0.83-4.51); Lymphocyte % 36.6 % (19-41); Mean Corp Hgb Conc 32.6 g/dL (32-36); Mean Corpuscular Hgb 31.1 pg (27.0-32.0); Mean Corpuscular Volume 95.5 fL (81-99); Mean Platelet Vol. 9.4 fl (6.2-12.0); Monocyte# 0.41 X10^3/uL; Monocyte% 8.5 % (0-10); NRBC Flagged by Analyzer 0 % (0-5); Neutrophil # 2.42 X10^3/uL (2.7-7.7); Neutrophil % 50.2 % (47-70); Platelet Count 300 K/mm3 (150-450); RBC Distribution Width CV 12.1 % (11.6-14.6); RBC Distribution Width SD 42.4 fl (35.1-43.9); Red Blood Count 4.02 M/mm3 (4.2-5.4); White Blood Count 4.8 K/mm3 (4.4-11.0)
[2023-01-17 18:03] LABS: ALB/GLOB Ratio 1.1 RATIO (0.9-2.4); AST(SGOT) 22 U/L (15-37); Alanine Aminotransfer ALT/SGPT 21 U/L (13-56); Albumin, Serum 3.9 g/dL (3.2-5.0); Alkaline Phosphatase 81 U/L (45-117); Anion Gap 6 (5-15); BUN 20 mg/dL (7-18); Calcium,Total 8.9 mg/dL (8.5-10.1); Chloride 105 mmol/L (98-107); Creatinine, Serum 1.11 mg/dL (0.55-1.02); EST Glomerular Filtration Rate 53 mL/min (>60); Est Glom Filt Rate - Afr Amer 64 mL/min (>60); Globulin 3.5 g/dL (2.2-4.2); Glucose 70 mg/dL (74-106); Magnesium 2.1 mg/dL (1.6-2.6); Phosphorus 3.8 mg/dL (2.5-4.9); Potassium 3.5 mmol/L (3.5-5.1); Protein, Total 7.4 g/dL (6.4-8.2); Sodium Level 139 mmol/L (136-145); Thyroid Stim Hormone (TSH) 0.85 uIU/mL (0.358-3.74)
== END | disposition home or self-care (01) ==
PROVIDERS: PCP Family Medicine Geriatric Medicine; Visit Provider Family Medicine Geriatric Medicine
DX: R42 Dizziness and giddiness (principal)
CPT/HCPCS: 36415; 80053; 83735; 84100; 84443; 85025

== ENCOUNTER → 2023-05-03 | Outpatient (CLI) | payer OTHER, SELFPAY ==
[2023-05-03 16:26] LABS: Absolute Lymphocyte Count 1.64 X10^3/uL (0.83-4.51); Absolute Neutrophil Count 2.6 X10^3/uL (2.0-7.7); Basophil# 0.05 X10^3/uL; Eosinophil# 0.16 X10^3/uL; Eosinophils% 3.3 % (0-5); Hemoglobin 9.6 g/dL (12.0-15.0); Lymphocyte # 1.64 X10^3/ul (0.83-4.51); Mean Corp Hgb Conc 33.1 g/dL (32-36); Mean Corpuscular Hgb 32.4 pg (27.0-32.0); Mean Platelet Vol. 9.5 fl (6.2-12.0); Monocyte% 8.3 % (0-10); NRBC Flagged by Analyzer 0 % (0-5); Neutrophil # 2.57 X10^3/uL (2.7-7.7); Neutrophil % 53.2 % (47-70); Platelet Count 328 K/mm3 (150-450); RBC Distribution Width CV 12.8 % (11.6-14.6); RBC Distribution Width SD 45.2 fl (35.1-43.9); Red Blood Count 2.96 M/mm3 (4.2-5.4); White Blood Count 4.8 K/mm3 (4.4-11.0)
== END | disposition home or self-care (01) ==
PROVIDERS: PCP Family Medicine Geriatric Medicine; Visit Provider Family Medicine Geriatric Medicine
DX: R53.83 Other fatigue (principal)
CPT/HCPCS: 36415; 85025

== ENCOUNTER → 2023-05-29 | Outpatient (CLI) | payer OTHER, SELFPAY ==
[2023-05-29 16:48] LABS: Anion Gap 6 (5-15); BUN 17 mg/dL (7-18); BUN/Creat Ratio 17.6 RATIO (10-20); Calcium,Total 9.2 mg/dL (8.5-10.1); Chloride 106 mmol/L (98-107); Creatinine, Serum 0.96 mg/dL (0.55-1.02); EST Glomerular Filtration Rate 63 mL/min (>60); Est Glom Filt Rate - Afr Amer 76 mL/min (>60); Glucose 90 mg/dL (74-106); Potassium 4.2 mmol/L (3.5-5.1); Sodium Level 140 mmol/L (136-145)
== END | disposition home or self-care (01) ==
LOC: LAB 15:16
PROVIDERS: PCP Family Medicine Geriatric Medicine; Referring Provider Internal Medicine Cardiovascular Disease; Visit Provider Internal Medicine Cardiovascular Disease
DX: I10 Essential (primary) hypertension (principal); R42 Dizziness and giddiness; R55 Syncope and collapse; R53.83 Other fatigue
CPT/HCPCS: 36415; 80048

== ENCOUNTER 2023-06-05 06:11 | Day surgery (SDC) | payer OTHER, SELFPAY ==
--- NOTE | 2023-06-05 | IMM_PTH ---
PATIENT: PORTER MUSA LOC: EN U#:[id number] AGE/SX: 62/F ROOM: RE06/05/[address]: Dr. Jeri Bennett MD : 1960 BED: DIS: 06/05/2023 SPEC #: [id number] RECD: 06/05/23 14:34 STATUS: DELORES REQ #: [id number] TAHIRA: 06/05/23 00:[address]: Jeri Bennett DEPT: IMMUNOHISTOCHEMISTRY RECD BY: Kristi Tate ENTERED: 06/05/23 14:35 SP TYPE: IMMUNO OTHR DR: Dr. Renato Bonilla MD Tissues: A - Pyloric antrum Procedures: H Pylori (initial) PHYSICIAN & INSTITUTION [place] [id number] SPECIMEN INFORMATION: Tissue Source: A - Prepyloric biopsy Clinical Info: Anemia, guaiac positive stools Specimen Number: [id number] CPT code: 18267 METHODOLOGY: Deparaffinized sections of prefer/formalin-fixed tissue or PAP/DQ stained slides are incubated with monoclonal/polyclonal antibodies/oligonucleotide probes. Localization is made via biotin free immunoperoxidase method. Appropriate controls are performed and reacted as expected. Results on target cell population are indicated in the following table: RESULTS: ANTIBODY / CLONE RESULT Block A H Pylori (polyclonal) negative These tests were developed and their performance characteristics determined by [facility]. They may not have been cleared or approved by the [place]. Food and Drug Administration. The FDA has determined that such clearance or approval is not necessary. The above immunohistochemical/dualISH markers are ordered and reviewed by the Pathologist. INTERPRETATION: A. Prepyloric biopsy: Negative for Helicobacter pylori organisms. GARY/willian 06/06/2023
--- NOTE | 2023-06-05 | GASB_PTH ---
PATIENT: PORTER MUSA LOC: EN U#:[id number] AGE/SX: 62/F ROOM: RE06/05/[address]: Dr. Jeri Bennett MD : 1960 BED: DIS: 06/05/2023 SPEC #: [id number] RECD: 06/05/23 13:50 STATUS: DELORES REKaylie #: [id number] TAHIRA: 06/05/23 00:[address]: Jeri Bennett DEPT: SURGICAL PATHOLOGY RECD BY: Janiya Randall ENTERED: 06/05/23 13:50 SP TYPE: Gastric Bx OT DR: Dr. Renato Bonilla MD Tissues: A - Gastric mucous membrane B - Ascending colon C - Sigmoid colon biopsy Procedures: Trichrome (control) Special Stain Group II Surgery Specimen Level IV HEADER OPERATION: Colonoscopy, EGD, biopsy PRE-OP DIAGNOSIS: Anemia, Guaiac positive stools TISSUE SUBMITTED: A - Prepyloric biopsy for histo and H. pylori, B - Ascending colon abnormal mucosa biopsy, C - Sigmoid polyps x2 biopsy MICROSCOPIC DIAGNOSIS A. Prepyloric biopsy: Mild gastritis. See microscopic description and comment. B. Ascending colon mucosa, biopsy: A fragment of colonic mucosa with mild nonspecific chronic inflammation. See comment. C. Sigmoid polyps x2, biopsy: Fragments of hyperplastic polyp. SJ:vik 06/06/2023 COMMENT A. The results of immunohistochemistry for Helicobacter pylori will be reported separately ([id number]). B. Trichrome stain with matched control was used in the evaluation of the specimen and shows focal minimal thickening of subepithelial collagen band, suggestive of collagenous colitis. Correlation with clinical, endoscopic findings and appropriate follow up are necessary. MICROSCOPIC DESCRIPTION Slides are reviewed. A. The specimen shows fragments of gastric mucosa with chronic inflammatory cell infiltrates in the lamina propria consisting of lymphocytes and plasma cells, consistent with mild chronic gastritis. GROSS DESCRIPTION A - Received in fixative is one container labeled with the patient's name and designated prepyloric biopsy. The specimen consists of one irregular fragment of light marshall soft tissue that measures 0.3 x 0.3 x 0.1 cm. The specimen is totally submitted in one cassette. B - Received in fixative is one container labeled with the patient's name and designated ascending colon abnormal mucosa biopsy. The specimen consists of one irregular fragment of light marshall soft tissue that measures 0.3 x 0.3 x 0.1 cm. The specimen is totally submitted in one cassette. C - Received in fixative is one container labeled with the patient's name and designated sigmoid polyps x2 biopsy. The specimen consists of multiple irregular fragments of light marshall soft tissue that in aggregate measure 0.6 x 0.5 x 0.1 cm. The specimen is totally submitted in one cassette. / SJ:rg 06/05/2023 TC:3 CPT: 74037 x3, 94392
[2023-06-05] MEDS: Lactated Ringers 1,000 ML 15 ML IV (06:32)
[2023-06-05 06:33] VITALS: BP 123/77; PULSE 64; RESP 18; TEMP 36.2; O2SAT 100; BMI 20.2
--- NOTE | 2023-06-05 07:21 | PCM.HP.BLA ---
History and Physical Date of Admission: 06/05/23 Date of Service: 05/17/23 MR#: [id number] Acct: [id number] Name: PORTER MUSA Rep #: [id number] : 1960 Provider: Dr. Jeri Bennett MD Age/Sex: 62/F Location: [facility] Status: Signed Intake Vital Signs 02/17/2206:39 05/17/2311:41 05/17/2314:29 Height 5 ft 4 in 5 ft 4 in 5 ft 4 in Weight: 121 lb 122 lb BMI 20.7 20.9 BP 178/100 H 175/83 H Blood Pressure Location Rt brachial Rt brachial Position Sitting Sitting Respiration 16 16 Pulse 63 Pulse Source Auscultation Intake Visit Reasons: IRON DEFICIENCY ANEMIA Chief Complaint: anemia Strategy Planning Consultant Required: No Is patient in pain?: No Allergies No Known Allergies Allergy (Verified 05/17/23 14:30) Medications magnesium oxide 400 mg PO DAILY 11/12/21 [History Confirmed 05/17/23] cyclobenzaprine 10 mg tablet 10 mg PO DAILY PRN muscle spasm 05/11/23 [History Confirmed 05/17/23] ferrous sulfate 324 mg (65 mg iron) tablet,delayed release 324 mg PO DAILY 05/11/23 [History Confirmed 05/17/23] atorvastatin 40 mg tablet 40 mg PO QHS #30 tabs 05/17/23 [Rx Confirmed 05/17/23] losartan 25 mg tablet 25 mg PO DAILY 05/17/23 [History Confirmed 05/17/23] vitamin B complex 1 tab PO DAILY 05/17/23 [History Confirmed 05/17/23] PFSH Medical History Anemia Arthritis Back pain Blood in stool Bradycardia Easy bruising Encounter for screening for malignant neoplasm of colon Excessive bleeding Fatigue Former smoker Headache History of IBS Hyperlipidemia Hypertension Lightheadedness Major depressive disorder, recurrent episode, in full remission Muscle spasm Numbness and tingling in both hands Post-menopausal Pseudoaneurysm of aorta Restless legs Syncope Vitamin D deficiency Wears contact lenses Surgical History Hx of colonoscopy Hx of hysterectomy Family History Mother Hypertension Cancer Arthritis CVA (cerebral vascular accident) Stomach ulcerFather Cancer bladderGrandmother CancerUncle Prostate carcinoma Social History Smoking Status: Former smoker alcohol intake: former year quit: 1990 substance use type: does not use caffeine: Yes Type: carbonated beverages Number of servings: 1 HPI HPI HPI: 62 year-old female presents for EGD and colonoscopy due to anemia. Patient states in April she was hospitalized due to syncopal episode at [place]. Patient's hemoglobin on last check was 9.6. Patient states at the time of her hospitalization she did have tarry stools at that time but states she also was taking quite a bit of Excedrin with aspirin for headaches patient has since stopped that does not take any ibuprofen and takes the Excedrin without the aspirin currently. Patient has started on iron as well so currently her stools are dark since taking the iron. Patient did have a colonoscopy in [address] Leach which was negative. Patient's bowel movements daily denies any blood, denies any abdominal pain/reflux/nausea/vomiting. Patient did also follow-up with cardiology today for follow-up from the hospitalization as well as Dr. 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 Patient states they were referring her to a tertiary care facility due to the pseudoaneurysm. ROS General General: Yes fatigue; No weight change, appetite, colon cancer or breast cancer HEENT HEENT: No difficulty swallowing, eye injury, eye surgery, swollen glands or hoarseness Endo Endocrine: No thyroid disease, diabetes mellitus, thyroid cancer, Hair loss, heat intolerance or cold intolerance Skin Skin: No rash or changing moles Musc Musculoskeletal: Yes back problems; No arthritis, rheumatoid arthritis, gout or joint pain Cardio Cardiovascular: Yes high blood pressure and shortness of breat with exertion; No murmur, pacemaker, heart disease, atrial fibrillation, heart attack, heart stent, palpitations or chest pain Psych Psychiatric: No depression, anxiety or hearing voices Resp Respiratory: Yes shortness of breath, No sleep apnea, No cough, No COPD, No asthma, No emphysema and No wheezing Gastro Gastrointestinal: No abdominal pain, No nausea or vomiting, No diarrhea, No constipation, Yes blood in stool, No acid reflux, No hemorrhoids, No ulcers, No gallbladder problem and Yes black,tarry stools [place] Hematologic: No blood thinners, No blood disorders, No bleeding, Yes anemia and No blood clots Neuro Neurologic: Yes dizziness and Yes numbness Exam Const General: cooperative, healthy appearing, comfortable and no acute distress [facility] Head: normocephalic and atraumatic Neck Neck: supple Resp Effort & Inspection: normal respiratory effort Cardio Rate: regular rate GI Inspection: non-distended Palpation: soft and nontender Skin General: no rashes or lesions noted Neuro General: CN's II-XI intact bilaterally Extrem General: normal to inspection Psych Mental Status: mental status grossly normal Attitude: cooperative Assessment and Plan Assessment and Plan (1) Anemia: Status: Chronic (2) Guaiac positive stools: Status: Chronic Plan I have discussed the above with the patient. I have offered the patient esophagogastroduodenoscopy and colonoscopy for evaluation. I have explained the risks/benefits of the procedure and described the procedure. I have discussed the risks with the patient, including but not limited to: infection, bleeding, perforation of the GI tract requiring emergency surgery, inability to complete the procedure, injury to any internal organs, complications of anesthesia, etc. - the patient understands and agrees to proceed. I have answered all the patient's questions to the patient's satisfaction and the patient has no further questions. The patient has been given instructions for the colon cleansing preparation. 1 day of clears, MiraLAX Dulcolax split prep. Jeri Bennett M.D. Pager: [phone] [facility] [address] [place] [address], [address] [place] [address] Office: [phone] Coding Level of Care Code Off vis,new,level 3 Diagnoses Anemia D64.9 Guaiac positive stools R19.5 05/17/23 1553 <Electronically signed by Jeri Bennett MD> Date Jeri Bennett MD
[2023-06-05 08:10] VITALS: BP 111/79; BP 123/77; PULSE 99; RESP 16; TEMP 36.1; O2SAT 100
--- NOTE | 2023-06-05 08:14 | OP.CCLET_ITS ---
06/05/2023 Renato Bonilla MD [address] [place] [address] Re : Colonoscopy procedure for Amie Ryan Dear Dr. Bonilla This procedure was performed on Monday, June 05, 2023. My impressions and recommendations are as follows: Impressions : - Nodular mucosa in the ascending colon. Biopsied. - Two less than 5 mm polyps in the sigmoid colon, removed with a cold biopsy forceps. Resected and retrieved. - The examination was otherwise normal. Recommendations : - Discharge patient to home. - Resume previous diet. - Continue present medications. - Await pathology results. - Repeat colonoscopy in 5 years for surveillance based on pathology results. My findings are described in the full procedure note, which is enclosed. If I can be of further assistance, please feel free to contact me at Doctor phone number(s): , Work: . Sincerely, MD Jeri Clarke MD 06/05/2023 8:14:18 AM This report has been signed electronically.
--- NOTE | 2023-06-05 08:14 | OP.COLON_ITS ---
Patient Name: Amie Ryan Procedure Date: 06/05/2023 7:45 AM Date of : 1960 Age: 62 Procedure: Colonoscopy Indications: Iron deficiency anemia Providers: Jeri Bennett MD Referring MD: Renato Bonilla MD Medicines: Monitored Anesthesia Care Patient Profile: This is a 62 year old female. Last Colonoscopy: January 2022. Complications: No immediate complications. Procedure: Pre-Anesthesia Assessment: - Prior to the procedure, a History and Physical was performed, and patient medications and allergies were reviewed. The patient's tolerance of previous anesthesia was also reviewed. The risks and benefits of the procedure and the sedation options and risks were discussed with the patient. All questions were answered, and informed consent was obtained. Prior Anticoagulants: The patient has taken no anticoagulant or antiplatelet agents. ASA Grade Assessment: Per anesthesia. After reviewing the risks and benefits, the patient was deemed in satisfactory condition to undergo the procedure. After I obtained informed consent, the scope was passed under direct vision. Throughout the procedure, the patient's blood pressure, pulse, and oxygen saturations were monitored continuously. The pediatric colonoscope was introduced through the anus and advanced to the cecum, identified by the appendiceal orifice, ileocecal valve and palpation. The colonoscopy was performed without difficulty. The colonoscopy was somewhat difficult due to a tortuous colon. The patient tolerated the procedure well. The quality of the bowel preparation was good. Scope In: 7:47:26 AM Scope Withdrawal Time 0 hours 8 minutes 36 seconds Scope Out: 8:04:36 AM Total Procedure Duration Time 0 hours 17 minutes 10 seconds Findings: The perianal and digital rectal examinations were normal. An area of mildly nodular mucosa was found in the ascending colon. Biopsies were taken with a cold forceps for histology. Two sessile polyps were found in the sigmoid colon. The polyps were less than 5 mm in size. These polyps were removed with a cold biopsy forceps. Resection and retrieval were complete. The exam was otherwise without abnormality. Impression: - Nodular mucosa in the ascending colon. Biopsied. - Two less than 5 mm polyps in the sigmoid colon, removed with a cold biopsy forceps. Resected and retrieved. - The examination was otherwise normal. Recommendation: - Discharge patient to home. - Resume previous diet. - Continue present medications. - Await pathology results. - Repeat colonoscopy in 5 years for surveillance based on pathology results. Procedure Code(s): --- Professional --- 63421, Colonoscopy, flexible; with biopsy, single or multiple Diagnosis Code(s): --- Professional --- K63.89, Other specified diseases of intestine D12.5, Benign neoplasm of sigmoid colon D50.9, Iron deficiency anemia, unspecified CPT copyright 2021 [employer]. All rights reserved. The codes documented in this report are preliminary and upon animal taxonomist review may be revised to meet current compliance requirements. MD Jeri Clarke MD 06/05/2023 8:14:18 AM This report has been signed electronically. Number of Addenda: 0 Note Initiated On: 06/05/2023 7:45 AM
[2023-06-05 08:15] VITALS: BP 109/76; BP 123/77; PULSE 77; RESP 16; O2SAT 100
--- NOTE | 2023-06-05 08:17 | OP.CCLET_ITS ---
06/05/2023 Renato Bonilla MD [address] [place] [address] Re : Upper GI endoscopy procedure for Amie Ryan Dear Dr. Bonilla This procedure was performed on Monday, June 05, 2023. My impressions and recommendations are as follows: Impressions : - Z-line regular, 42 cm from the incisors. - Erythematous mucosa in the prepyloric region of the stomach. Biopsied. - Normal examined duodenum. Recommendations : - Await pathology results. - Discharge patient to home. - Resume previous diet. - Continue present medications. My findings are described in the full procedure note, which is enclosed. If I can be of further assistance, please feel free to contact me at Doctor phone number(s): , Work: . Sincerely, MD Jeri Clarke MD 06/05/2023 8:16:37 AM This report has been signed electronically.
--- NOTE | 2023-06-05 08:17 | OP.EGD_ITS ---
Patient Name: Amie Ryan Procedure Date: 06/05/2023 7:27 AM Date of : 1960 Age: 62 Procedure: Upper GI endoscopy Indications: Iron deficiency anemia Providers: Jeri Bennett MD Referring MD: Renato Bonilla MD Medicines: Monitored Anesthesia Care Patient Profile: This is a 62 year old female. Complications: No immediate complications. Procedure: Pre-Anesthesia Assessment: - Prior to the procedure, a History and Physical was performed, and patient medications and allergies were reviewed. The patient's tolerance of previous anesthesia was also reviewed. The risks and benefits of the procedure and the sedation options and risks were discussed with the patient. All questions were answered, and informed consent was obtained. Prior Anticoagulants: The patient has taken no anticoagulant or antiplatelet agents. ASA Grade Assessment: Per anesthesia. After reviewing the risks and benefits, the patient was deemed in satisfactory condition to undergo the procedure. After obtaining informed consent, the endoscope was passed under direct vision. Throughout the procedure, the patient's blood pressure, pulse, and oxygen saturations were monitored continuously. The pediatric colonoscope was introduced through the mouth, and advanced to the second part of duodenum. The upper GI endoscopy was accomplished without difficulty. The patient tolerated the procedure well. Scope In: 7:41:32 AM Scope Out: 7:45:42 AM Total Procedure Duration Time 0 hours 4 minutes 10 seconds Findings: The Z-line was regular and was found 42 cm from the incisors. The cardia and gastric fundus were normal on retroflexion. Localized mildly erythematous mucosa without bleeding was found in the prepyloric region of the stomach. Biopsies were taken with a cold forceps for histology. Biopsies were taken with a cold forceps for Helicobacter pylori cultures. The examined duodenum was normal. Impression: - Z-line regular, 42 cm from the incisors. - Erythematous mucosa in the prepyloric region of the stomach. Biopsied. - Normal examined duodenum. Recommendation: - Await pathology results. - Discharge patient to home. - Resume previous diet. - Continue present medications. Procedure Code(s): --- Professional --- 45388, Esophagogastroduodenoscopy, flexible, transoral; with biopsy, single or multiple Diagnosis Code(s): --- Professional --- K31.89, Other diseases of stomach and duodenum D50.9, Iron deficiency anemia, unspecified CPT copyright 2021 [employer]. All rights reserved. The codes documented in this report are preliminary and upon cost analyst review may be revised to meet current compliance requirements. MD Jeri Clarke MD 06/05/2023 8:16:37 AM This report has been signed electronically. Number of Addenda: 0 Note Initiated On: 06/05/2023 7:27 AM
[2023-06-05 08:20] VITALS: BP 122/72; BP 123/77; PULSE 71; RESP 16; O2SAT 10
[2023-06-05 08:26] VITALS: BP 115/72; BP 123/77; PULSE 64; RESP 16; TEMP 36.2; O2SAT 99
[2023-06-05 08:51] VITALS: BP 123/77
--- NOTE | 2025-02-28 12:43 | PCM.PRE.AN2 ---
ASA Classification* ASA Classification ASA Classification: 3 and E Assessment & Plan Anesthesia* Anesthesia Assessment Anesthesia Assessment: Discussed sedation and/or anesthesia options, risks, benefits, and alternatives with patient/parents/legal guardian/POA. Questions invited. The patient/parents/legal guardian/POA seems to understand and agrees to proceed with anesthesia plan. Reviewed the physical assessment, medical history, allergy history and patient home medications list prior to surgery/procedure/anesthetic and documented any changes. Performed airway and anesthesia risk assessments. Anesthesia Type Anesthesia Type: MAC (patient TC for 1 unit-ready, will transfuse prior to procedure given her CAD/ASHD. Obtain EKG and HS troponin on the earlier blood draw. If all stable/normal, will proceed with egd given her absence of CAD symptoms) Anesthesia Focused Assessment* Temperature: 97.2 F Pulse Rate: 64 Blood Pressure: 115/72 Respiratory Rate: 16 Pulse Ox: 99 Airway Assessment Mouth opens: >3 cm Mallampati Score: III Labs Anesthesia Preop lab: CBC WBC 5.7 K/mm3 (4.4-11.0) 02/28/25 09:40 02/28/25 RBC 2.05 M/mm3 (4.2-5.4) L 02/28/25 09:40 02/28/25 Hgb 6.7 g/dL (12.0-15.0) L 02/28/25 09:40 02/28/25 Hct 20.0 % (37-47) L 02/28/25 09:40 02/28/25 Plt Count 255 K/mm3 (150-450) 02/28/25 09:40 02/28/25 CHEMISTRY Potassium 4.2 mmol/L (3.3-5.1) 02/28/25 09:40 02/28/25 Sodium 136 mmol/L (133-145) 02/28/25 09:40 02/28/25 Magnesium 2.5 mg/dL (1.6-2.6) 07/26/23 23:10 07/26/23 Phosphorus 3.3 mg/dL (2.5-4.9) 07/27/23 02:11 07/27/23 BUN 34 mg/dL (4-19) H 02/28/25 09:40 02/28/25 Creatinine 0.82 mg/dL (0.70-1.20) 02/28/25 09:40 02/28/25 Glucose 107 mg/dL (70-99) H 02/28/25 09:40 02/28/25 POC Glucose 79 mg/dL (74-106) 07/26/23 19:58 07/26/23 TSH 1.520 uIU/mL (0.300-4.200) 10/26/24 09:12 10/26/24 COAG Pre-Assessment Diagnosis/Proposed Procedure Planned Operative Procedure(s): EGD/CSCOPE Anesthesia History 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 When Was Last Pacemaker Check QUESTION #4 FULL TEXT: You/Your Family Experience fever (hyperthermia) with Anesthesia Last Oral Intake Last Oral intake: Last Oral Intake NPO since 00:00 06/05/23 06:33 Meds taken in AM with sips of No 06/05/23 06:33 water? Meds patient instructed to take am of surgery PONV PONV - volunteer manager: PONV - volunteer manager Female Yes 05/31/23 10:15 HX of Motion Sickness Yes 05/31/23 10:15 HX of N/V After Surgery No 05/31/23 10:15 Non-Smoker No 05/31/23 10:15 Duration of Surgery greater No 05/31/23 10:15 than 60 minutes Number of Risk Factors 2 05/31/23 10:15 PONV Score Moderate Risk 05/31/23 10:15 Height & Weight Height & Weight: Anesthesia: Height & Weight Height 5 ft 4 in 06/05/23 06:33 Weight: 53.524 kg 06/05/23 06:33 Body Mass Index (BMI) 20.2 06/05/23 06:33 Respiratory Assessment Respiratory Assessment - volunteer manager: Respiratory Tract Infection Hx - volunteer manager Hx Respiratory Tract Infection No 05/31/23 10:15 STOP Sleep Apnea STOP Sleep Apnea - volunteer manager: STOP Sleep Apnea - volunteer manager Hx Hypertension Yes: CONTROLLED WITH MED/ 05/31/23 10:15 IMPROVING Hx Sleep Apnea No 06/05/23 08:26 CPAP BIPAP Do you snore loudly (louder No 05/31/23 10:15 than talking or can be heard Do you often feel tired/ Yes 05/31/23 10:15 fatigued/ sleepy during daytime? Has anyone observed you stop No 05/31/23 10:15 breathing during sleep? STOP Results Positive 06/05/23 08:10 QUESTION #5 FULL TEXT : Do you snore loudly (louder than talking or can be heard through closed doors)? Tobacco Use History Tobacco Use History - volunteer manager: Tobacco Use History - volunteer manager Tobacco Use Smoking Status Current every day smoker 05/31/23 10:15 Hx Tobacco Use Yes 05/31/23 10:15 Years Smoking Packs Smoked per Day Smoking Cessation Date was Yes - quit smoking within 15 05/31/23 10:15 within the last 15 years years Hx Smoking Cessation Date 10/05/21 05/31/23 10:15 Hx Smoking Cessation Counseling Hematologic Medial History Hematologic Hx - volunteer manager: Hematologic Medical Hx - can maker Hx of Blood Transfusion No 05/31/23 10:15 Hx of Transfusion in last 3 No 05/31/23 10:15 Months Date of Last Transfusion (if within last 3 months) Ever experience any problems No 05/31/23 10:15 with transfusion(s)? Specify any problems Hx of Preganancy in last 3 No 05/31/23 10:15 Months Nurse Filling Out Transfusion DSCHRIBER 05/31/23 10:15 & Questions: Date: 05/31/23 05/31/23 10:15 Time: 10:18 05/31/23 10:15 Patient unable to answer at this time (ie. confused, unrespo /Reproduction History /Reproductive History - volunteer manager: /Reproductive Hx- volunteer manager Hx Now No 05/31/23 10:15 Gestational Age (in weeks): EDC: Hx Hx Para Hx Section SAB No 05/31/23 10:15 [facility] Medical History AAA (abdominal aortic aneurysm) Palpitations Dyslipidemia Raynauds phenomenon Coronary artery disease Hypokalemia Abnormal findings diagnostic imaging of heart and coronary circulation (06/07/23) Atherosclerotic heart disease of [place] coronary artery without angina pectoris (06/07/23) 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) Anxiety Shortness of breath on exertion History of echocardiogram History of stress test Cardiology follow-up encounter History of irregular heartbeat Guaiac positive stools Abnormal ECG Anemia Blood in stool Pseudoaneurysm of aorta Fatigue Syncope Vitamin D deficiency Major depressive disorder, recurrent episode, in full remission Lightheadedness Numbness and tingling in both hands Bradycardia Wears contact lenses Post-menopausal Excessive bleeding Easy bruising Restless legs Back pain History of IBS Former smoker Encounter for screening for malignant neoplasm of colon Muscle spasm Hyperlipidemia Hypertension Home Medications ?Medication ?Instructions ?Recorded ?Last Taken ?Type magnesium oxide 400 mg PO DAILY 11/12/21 Unknown History cyclobenzaprine 10 mg tablet 10 mg PO DAILY PRN muscle spasm 05/11/23 Unknown History atorvastatin 40 mg tablet 40 mg PO QHS #30 tabs 05/17/23 Unknown Rx cholecalciferol (vitamin D3) 25 25 mcg PO DAILY 05/31/23 Unknown History mcg (1,000 unit) tablet (Vitamin D3) aspirin 81 mg tablet,delayed 81 mg PO DAILY 06/12/23 06/15/23 History release (Adult Aspirin Regimen) calcium carbonate (Calcium 600) 600 mg PO DAILY 02/22/24 Unknown History ferrous sulfate 325 mg (65 mg 325 mg PO Q OTHER DAY 02/22/24 Unknown History iron) tablet (FeroSul) losartan 50 mg tablet 50 mg PO DAILY #90 tabs 06/28/24 Unknown Rx Held on 02/28/25. Instructions: per t report amlodipine 5 mg tablet 5 mg PO DAILY #90 tabs 02/19/25 Unknown Rx Held on 02/28/25. Instructions: per pt preport pantoprazole 40 mg tablet,delayed 40 mg PO BID 02/28/25 Unknown History release sucralfate 1 gram tablet 1 g PO BID 02/28/25 Unknown History vibegron 75 mg tablet (Gemtesa) 75 mg PO DAILY 02/28/25 Unknown History Allergy/AdvReac Type Severity Reaction Status Date / Time No Known Allergies Allergy Verified 02/28/25 09:22 Family History Mother Hypertension Cancer Arthritis CVA (cerebral vascular accident) Stomach ulcer Father Cancer bladder Grandmother Cancer Uncle Prostate carcinoma Surgical History Stented coronary artery (06/15/23) Hx of hysterectomy Hx of colonoscopy Social History household members: spouse Smoking Status: Former smoker alcohol intake: former year quit: 1990 substance use type: does not use caffeine: Yes Type: carbonated beverages Number of servings: 1 Review of Systems (Anesthesia) ROS Narrative System reviewed and no additional complaints, except as documented.
== END 2023-06-05 09:22 | disposition home or self-care (01) ==
LOC: EN 06:11 → AC 06:13
PROVIDERS: PCP Family Medicine Geriatric Medicine; Referring Provider Family Medicine Geriatric Medicine; Visit Provider Surgery
PROC: 0DJD8ZZ Inspection of Lower Intestinal Tract, Via Natural or Artificial Opening Endoscopic (ICD-10-PCS; CPT 45378; principal; 2023-06-05 07:25)
DX: K29.70 Gastritis, unspecified, without bleeding (principal); K52.9 Noninfective gastroenteritis and colitis, unspecified; R19.5 Other fecal abnormalities; E78.5 Hyperlipidemia, unspecified; K63.5 Polyp of colon; I10 Essential (primary) hypertension; Z87.891 Personal history of nicotine dependence; D50.9 Iron deficiency anemia, unspecified; Z79.899 Other long term (current) drug therapy; Z87.19 Personal history of other diseases of the digestive system
CPT/HCPCS: 45380; 43239; 88305; 88313; 88342; J7120; J2405

== ENCOUNTER → 2023-06-05 | Outpatient (CLI) | payer OTHER, SELFPAY ==
[2023-06-05 10:15] LABS: Hematocrit 39.3 % (37-47); Hemoglobin 12.3 g/dL (12.0-15.0); Mean Corp Hgb Conc 31.3 g/dL (32-36); Mean Corpuscular Hgb 32.1 pg (27.0-32.0); Mean Corpuscular Volume 102.6 fL (81-99); Platelet Count 324 K/mm3 (150-450); RBC Distribution Width CV 12.8 % (11.6-14.6); RBC Distribution Width SD 47.8 fl (35.1-43.9); Red Blood Count 3.83 M/mm3 (4.2-5.4); White Blood Count 3.4 K/mm3 (4.4-11.0)
== END | disposition home or self-care (01) ==
LOC: LAB 09:26
PROVIDERS: PCP Family Medicine Geriatric Medicine; Visit Provider Internal Medicine Cardiovascular Disease
DX: D64.9 Anemia, unspecified (principal)
CPT/HCPCS: 36415; 85027

== ENCOUNTER → 2023-06-07 | Outpatient (CLI) | payer OTHER, SELFPAY ==
[2023-06-07 13:08] VITALS: BP 129/76; PULSE 50; RESP 18; TEMP 36.5; O2SAT 100; BMI 20.5
--- NOTE | 2023-06-07 13:14 | CT_ITS ---
STUDY: CT CHEST WITH CONTRAST REASON FOR EXAM: Female, 62 years old. SYNCOPE RADIATION DOSAGE (If Supplied By Facility): CTDIvol = ( 39.03 ) mGy, DLP = ( 1200.35 ) mGycm TECHNIQUE: Transaxial imaging was performed without the administration of intravenous contrast material. Cardiac over read examination. Individualized dose optimization techniques were used for this CT. COMPARISON: Comparison is made with prior study dated September 20, 2011. FINDINGS: CHEST The lungs are normal. There is no demonstrated pleural abnormality. Normal heart and pericardium. Normal mediastinum. Normal hilar regions. Normal unenhanced pulmonary arteries. Normal aorta arch and descending thoracic aorta. Normal osseous structures. There is no demonstrated abnormality of the visualized upper abdomen. CT/Limited Chest CT Cardiac Only IMPRESSION: Normal unenhanced CT chest T abdomen examination. Electronically Signed: Abdelrahman Garcia MD at 15:04 EST ,
[2023-06-07 13:33] VITALS: BP 109/61; PULSE 57
[2023-06-07] MEDS: Nitroglycerin SL (ED/IMG/CATH) 0.4 MG TABLET SL (13:33)
[2023-06-07] MEDS: 0.9% Saline Lock 10 ML Syringe IV (13:33)
[2023-06-07 13:48] VITALS: BP 109/61; PULSE 57
--- NOTE | 2023-06-07 17:13 | CCTA.WCONT ---
CCTA w/Cont Coronary Arteries Date of Study:: 06/07/23 Syncope Coronary Calcium Scoring: High-resolution Computed Tomographic imaging of the chest was performed on [06/07/2023], with particular attention paid to the coronary arteries. Intravenous contrast agent was administered per protocol and images reconstructed and displayed. LEFT MAIN CORONARY ARTERY: This arose from the left coronary cusp and demonstrates no significant stenosis [] LEFT ANTERIOR DESCENDING CORONARY ARTERY: This arose from the left main coronary artery and courses towards the apex of the ventricle. Minimal atherosclerotic plaquing was noted in this vessel 2 diagonal vessels were noted to be present. [] LEFT CIRCUMFLEX CORONARY ARTERY: Nondominant vessel with mild mid segment atherosclerotic soft plaquing noted. [] RIGHT CORONARY ARTERY: Dominant large vessel with moderate calcification noted in the midsegment as well as the distal segment with an eccentric soft plaque and stenosis which appears to be moderately severe present in the proximal to mid segment. CORONARY CALCIUM SCORE: Not done Conclusion: Mixture of soft and hard plaque with a moderately severe stenosis noted in the mid right coronary artery segment []
== END | disposition home or self-care (01) ==
LOC: CT 12:59
PROVIDERS: PCP Family Medicine Geriatric Medicine; Referring Provider Internal Medicine Cardiovascular Disease; Visit Provider Internal Medicine Cardiovascular Disease
DX: R55 Syncope and collapse (principal); I71.9 Aortic aneurysm of unspecified site, without rupture; R53.83 Other fatigue; I10 Essential (primary) hypertension; E78.5 Hyperlipidemia, unspecified
CPT/HCPCS: 75574; 76380; 96374; Q9967; A4216

== ENCOUNTER 2023-06-15 12:35 | Observation (INO) | payer OTHER, SELFPAY ==
[2023-06-13 12:18] LABS: Hematocrit 39.7 % (37-47); Hemoglobin 12.6 g/dL (12.0-15.0); Mean Corp Hgb Conc 31.7 g/dL (32-36); Mean Corpuscular Hgb 31.6 pg (27.0-32.0); Mean Corpuscular Volume 99.5 fL (81-99); Mean Platelet Vol. 9.2 fl (6.2-12.0); Platelet Count 306 K/mm3 (150-450); RBC Distribution Width CV 12.1 % (11.6-14.6); Red Blood Count 3.99 M/mm3 (4.2-5.4); White Blood Count 4.4 K/mm3 (4.4-11.0)
[2023-06-13 12:48] LABS: Anion Gap 3 (5-15); BUN 15 mg/dL (7-18); BUN/Creat Ratio 14.6 RATIO (10-20); Calcium,Total 9.5 mg/dL (8.5-10.1); Chloride 106 mmol/L (98-107); Creatinine, Serum 1.03 mg/dL (0.55-1.02); EST Glomerular Filtration Rate 58 mL/min (>60); Est Glom Filt Rate - Afr Amer 70 mL/min (>60); Glucose 128 mg/dL (74-106); Potassium 3.8 mmol/L (3.5-5.1); Sodium Level 139 mmol/L (136-145)
[2023-06-14 07:20] VITALS: BMI 20.7
[2023-06-15] VITALS (11 sets, daily range): BP systolic 122–152; BP diastolic 66–110; PULSE 48–64; RESP 16–18; TEMP 36.4–36.7; O2SAT 96–100; BMI 20.9
--- NOTE | 2023-06-15 12:45 | EKG12_ITS ---
Test Reason : AM EKG Blood Pressure : / mmHG Vent. Rate : 056 BPM Atrial Rate : 056 BPM P-R Int : 198 ms QRS Dur : 084 ms QT Int : 444 ms P-R-T Axes : 254 028 101 degrees QTc Int : 428 ms Unusual P axis, possible ectopic atrial bradycardia Low voltage QRS Septal infarct , age undetermined Abnormal ECG When compared with ECG of 15-JUN-2023 12:55, MANUAL COMPARISON REQUIRED, DATA IS UNCONFIRMED Confirmed by LEONORA CUI, MARLEY ([id number]), online editor LAUREN MERAZ ([id number]) on 06/19/2023 12:46:56 PM Referred By: Oly Holloway Confirmed By:JUDY HOLLOWAY MD
--- NOTE | 2023-06-15 13:01 | CRPHASE1_ITS ---
Patient Communication Patient Information Former Patient:: Phase I Guide to Cardiac Rehab Given to Patient:: Yes Cardiac Rehab Facility Choice List Given to Patient:: Yes Communication to Cardiac Rehab Security Guards Dispatcher:: Yasmine Holloway Cardiac Rehabilitation Info Program Information Cardiac Rehabilitation Program Information: Cardiac Rehab The cardiac rehab team at [facility] consists of highly skilled exercise physiologists, nurses, respiratory therapists and physicians working together with you. Our purpose is to help you have a full recovery and achieve the goals you set for yourself. Over the years many of our patients have returned to activities they assumed they would never do again! We can help restore your confidence and motivation to make lifestyle changes that can have a significant impact on your health and quality of life! We can help answer questions and concerns you may have about exercise, lifestyle, medications, diet, stress and anxiety which are common following a hospitalization. WE monitor ECG and vital signs during exercise and discuss your progress with you and report to your physician(s). Cardiac Rehab is proven to help reduce readmissions, improve functional capacity and lower recurrence of problems with your heart. Our Cardiac Rehab program is Certified by the [place] [employer] Pulmonary [employer] (AACVPR) and Accredited by the [place] [employer] through our [facility]. You can contact us at . We invite you to call us with your questions or to get started in our program. If you have other questions or concerns be sure to ask your physician/provider during your follow-up visit. WE look forward to seeing you!
--- NOTE | 2023-06-15 13:02 | CRPH1.INSTRU ---
General Education Discussed with Patient CAD and cardiac anatomy and function:: Patient communicates acknowledgment Explanation of diagnoses and procedures:: Patient communicates acknowledgment Sign/Symptoms of MA:: Patient communicates acknowledgment Antiplatelet therapy: Patient communicates acknowledgment Proper use of NTG-SL: Patient communicates acknowledgment Emergency procedures and activation of EMS: Patient communicates acknowledgment Compliance of all prescribed medications: Patient communicates acknowledgment Smoking Risk Factors Patient Nicotine/Smoking Risk Factors Are:: Non-smoker Recommendations Recommendations Include:: Second-hand smoke recommendation and Previous smoker; encourage continued cessation Dyslipidemia Risk Factors Patient Dyslipidemia Risk Factors Are:: Total Cholesterol, Triglycerides, HDL and LDL Recommendations Recommendations Include:: Lipid profile not available Response Code Dyslipidemia Response Code:: Patient communicates acknowledgment Overweight/Obesity Risk Factors Patient Overweight/Obesity Risk Factors Are:: BMI Normal [18-25 & < 65 years old] Recommendations Recommendations Include:: Exercise 5-7 times/week Hypertension Risk Factors Patient Hypertension Risk Factors Are:: No documented hx of HTN Recommendations Recommendations Include:: Maintain BP <130/85 and Moderation of ETOH Metabolic Syndrome Recommendations Recommendations Include:: Encouraged follow-up with Primary Care Physician Sedentary Risk Factors Patient Sedentary Risk Factors Are:: Lack of regular exercise Recommendations Recommendations Include:: Aerobic exercise 5-7 times/week for 20-30 minutes continuously, Benefits of regular exercise, Discussed home walking program and Monitored Outpatient Cardiac Rehab Stress Recommendations Recommendations Include:: Identification of stressors, and assessment of coping skills and Stress management techniques Response Code Stress Response Code:: Patient communicates acknowledgment
[2023-06-15] MEDS: 0.9% Normal Saline (1000mL) 1,000 ML 80 ML IV (13:09)
[2023-06-15] MEDS: Acetaminophen 325 MG Tablet 650 MG PO (14:24)
[2023-06-15] MEDS: Atorvastatin Calcium 40 MG Tablet PO (21:04)
[2023-06-15] MEDS: Losartan Potassium 25 MG Tablet PO (21:04)
[2023-06-15] MEDS: TICAGRELOR 90 MG TABLET PO (21:04)
[2023-06-15] MEDS: amLODIPine 5 MG Tablet PO (21:04)
[2023-06-16 03:27] VITALS: BP 118/62; PULSE 57; RESP 18; TEMP 36.7; O2SAT 98
[2023-06-16 07:45] LABS: Hematocrit 39.3 % (37-47); Hemoglobin 12.6 g/dL (12.0-15.0); Mean Corp Hgb Conc 32.1 g/dL (32-36); Mean Corpuscular Hgb 31.6 pg (27.0-32.0); Mean Corpuscular Volume 98.5 fL (81-99); Mean Platelet Vol. 9.3 fl (6.2-12.0); Platelet Count 214 K/mm3 (150-450); RBC Distribution Width SD 43.8 fl (35.1-43.9); Red Blood Count 3.99 M/mm3 (4.2-5.4); White Blood Count 3.9 K/mm3 (4.4-11.0)
[2023-06-16 07:56] VITALS: BP 132/78; PULSE 62; RESP 12; TEMP 36.5; O2SAT 100
[2023-06-16] MEDS: Ferrous Sulfate 325 MG Tablet PO (08:02)
[2023-06-16] MEDS: Aspirin E.C. 81 MG Tablet PO (08:02)
[2023-06-16] MEDS: TICAGRELOR 90 MG TABLET PO (08:02)
[2023-06-16] MEDS: Vitamin B Comp W-C Capsule 1 CAP PO (08:02)
[2023-06-16] MEDS: Cholecalciferol (VIT D3) 25 MCG TABLET (1,000 UNITS) PO (08:03)
[2023-06-16] MEDS: Magnesium Chloride 64 MG Delay Rel.Tablet 128 MG PO (08:03)
[2023-06-16 08:05] LABS: ALB/GLOB Ratio 1.1 RATIO (0.9-2.4); AST(SGOT) 34 U/L (15-37); Alanine Aminotransfer ALT/SGPT 28 U/L (13-56); Albumin, Serum 3.6 g/dL (3.2-5.0); Alkaline Phosphatase 83 U/L (45-117); Anion Gap 5 (5-15); BUN 14 mg/dL (7-18); BUN/Creat Ratio 17.6 RATIO (10-20); Calcium,Total 8.8 mg/dL (8.5-10.1); Chloride 110 mmol/L (98-107); EST Glomerular Filtration Rate 78 mL/min (>60); Est Glom Filt Rate - Afr Amer 94 mL/min (>60); Estimated Creatinine Clearance 64.58 ml/min; Globulin 3.3 g/dL (2.2-4.2); Glucose 90 mg/dL (74-106); Potassium 4.1 mmol/L (3.5-5.1); Protein, Total 6.9 g/dL (6.4-8.2); Sodium Level 143 mmol/L (136-145)
[2023-06-16 08:36] VITALS: O2SAT 95
--- NOTE | 2023-06-16 10:00 | EKG12_ITS ---
Test Reason : POST CATH Blood Pressure : / mmHG Vent. Rate : 046 BPM Atrial Rate : 046 BPM P-R Int : 000 ms QRS Dur : 082 ms QT Int : 504 ms P-R-T Axes : 000 002 116 degrees QTc Int : 441 ms Sinus bradycardia Low voltage QRS Septal infarct (cited on or before 17-FEB-2022) T wave abnormality, consider lateral ischemia Abnormal ECG When compared with ECG of 17-FEB-2022 07:46, Current undetermined rhythm precludes rhythm comparison, needs review T wave inversion now evident in Lateral leads Confirmed by LEONORA CUI, MARLEY ([id number]), index editor LAUREN MERAZ ([id number]) on 06/19/2023 12:59:03 PM Referred By: Oly Holloway Confirmed By:JUDY HOLLOWAY MD
--- NOTE | 2023-06-16 13:55 | DS.PCM_ITS ---
Providers Date of Admission: 06/15/23 Primary Care Physician: Dr. Renato Bonilla MD Reason For Visit: ABN CCTA, SEVERE STENOSIS MID RCA, ABN EKG, CAD Diagnosis Discharge Diagnosis (1) Stenosis of right coronary artery: Status: Acute Code(s): I25.10 - Atherosclerotic heart disease of [place] coronary artery without angina pectoris Plan: Patient has significant stenosis to the mid RCA that was treated with a drug- eluting stent. She is being discharged home in a stable condition. She will follow-up with Dr. Wray as an outpatient. (2) Syncope: Status: Chronic Code(s): R55 - Syncope and collapse Qualifiers: Syncope type: unspecified Qualified Code(s): R55 - Syncope and collapse Medications at Discharge Home Medications magnesium oxide 400 mg PO DAILY 11/12/21 cyclobenzaprine 10 mg tablet 10 mg PO DAILY PRN muscle spasm 05/11/23 ferrous sulfate 324 mg (65 mg iron) tablet,delayed release 324 mg PO DAILY 05/11/23 atorvastatin 40 mg tablet 40 mg PO QHS #30 tabs 05/17/23 losartan 25 mg tablet 25 mg PO QHS 05/17/23 vitamin B complex 1 tab PO DAILY 05/17/23 amlodipine 5 mg tablet 5 mg PO QHS 05/31/23 cholecalciferol (vitamin D3) 25 mcg (1,000 unit) tablet (Vitamin D3) 25 mcg PO DAILY 05/31/23 aspirin 81 mg tablet,delayed release (Adult Aspirin Regimen) 81 mg PO DAILY 06/12/23 ticagrelor 90 mg tablet (Brilinta) 90 mg PO BID #60 tabs 06/16/23 Weight / BMI Weight Weight: 122 lb 6 oz Body Mass Index (BMI) 20.9 ABG / Lab / Microbiology Data 06/16/23 06:40 06/16/23 06:40 Laboratory: Laboratory Results - last 24 hr 06/16/23 06:40: WBC 3.9 L, RBC 3.99 L, Hgb 12.6, Hct 39.3, MCV 98.5, MCH 31.6, MCHC 32.1, RDW Std Deviation 43.8, RDW Coeff of Yulia 12.0, Plt Count 214, MPV 9.3, Sodium 143, Potassium 4.1, Chloride 110 H, Carbon Dioxide 28.0, Anion Gap 5, BUN 14, Creatinine 0.80, Estim Creat Clear Calc 64.58, Est GFR (MDRD) Af Amer 94, Est GFR (MDRD) Non-Af 78, BUN/Creatinine Ratio 17.6, Glucose 90, Calcium 8.8, Total Bilirubin 0.30, AST 34, ALT 28, Alkaline Phosphatase 83, Total Protein 6.9, Albumin 3.6, Globulin 3.3, Albumin/Globulin Ratio 1.1 Meaningful Use Info Meaningful Use Diagnoses (Choose all that apply): None applicable Discharge Plan Admission Admit Date/Time: 06/15/23 12:35 Primary Reason for Your Visit: For coronary angiography Attending Provider: Oly Holloway Primary Care Provider: Renato Bonilla Chi Instructions Additional Instructions / Restrictions: Do not lift anything over 5 pounds with your right arm for about 5 days. Follow-up with Dr. Wray as an outpatient in about 2-4 weeks If you have any issues picking up Brilinta, please let us know. Discharge Orders/Prescriptions Prescriptions: New Brilinta 90 mg tablet 90 mg PO BID Qty: 60 11RF Continued magnesium oxide 400 mg magnesium tablet 400 mg PO DAILY cyclobenzaprine 10 mg tablet 10 mg PO DAILY PRN (Reason: muscle spasm) ferrous sulfate 324 mg (65 mg iron) tablet,delayed release (DR/EC) 324 mg PO DAILY vitamin B complex Tablet 1 tab PO DAILY losartan 25 mg tablet 25 mg PO QHS atorvastatin 40 mg tablet 40 mg PO QHS Qty: 30 2RF cholecalciferol (vitamin D3) [Vitamin D3] 25 mcg (1,000 unit) tablet 25 mcg PO DAILY amlodipine 5 mg tablet 5 mg PO QHS aspirin [Adult Aspirin Regimen] 81 mg tablet,delayed release (DR/EC) 81 mg PO DAILY Referrals / Follow Up: Renato Bonilla Chi, MD [Primary Care Provider] - Disposition Disposition (needs filled in before D/C Order can be placed): Home, Self Care
[2023-06-16 14:00] VITALS: BP 129/69; PULSE 79; RESP 13; TEMP 36.5; O2SAT 98
--- NOTE | 2023-06-18 17:00 | CL.I_ITS ---
Patient Name: PORTER MUSA Study Date: 06/15/2023 Performing: Yasmine Holloway MD Ht: 64 inches 162.56 cm : 1960 Wt: 121.1 lbs 54.88 kg Age: 62 Gender: female BSA: 1.58 PROCEDURE(S) PERFORMED DC02-(69513)LHC/COR IC12-([id number])MARIYA W/WO PTCA, SINGLE CORONARY ARTERY CLINICAL PROFILE AND CO-MORBIDITIES Indications: Other Heart Failure: None CONCLUSIONS CAD as described. Successful MARIYA to mid RCA. RECOMMENDATIONS DESCRIPTION OF PROCEDURE The patient arrived to the procedure lab. The risks and benefits of the procedure as well as a full description of our services here and lack of surgical backup were fully explained to the patient and/or their significant other prior to the catheterization. The Timeout was completed, verifying the correct patient and procedure. The patient's procedural site was prepped and draped in the usual fashion. Local anesthetic was given subcutaneously to right radial region with Lidocaine 2%. Using a modified Seldinger technique, arterial access was obtained via the right radial artery, a 6Fr sheath was inserted.. Left Coronary Artery selective angiography was performed in multiple views using a 5 Fr. JL3.5 catheter. Right Coronary Artery selective angiography was then performed in multiple views using a 5 Fr. JR 4 catheterThe images were reviewed and options discussed. A decision was then made to proceed with an Intervention, IVUS or other adjunct procedure. JR 4.0 Guide catheter was inserted and engaged into the RCA. BMW Guide wire was advanced to the RCA. [place] 4.0 x 12 Drug Eluting stent was inserted. Drug Eluting stent was advanced across the lesion in the right coronary, mid. Angiogram performed pre stent deployment. The arterial sheath was pulled and a TR Band was applied for hemostasis CORONARY ANGIOGRAPHY DOMINANCE: Right Dominant LEFT MAIN: Mild luminal irregularities LEFT ANTERIOR DESCENDING ARTERY: Mild luminal irregularities CIRCUMFLEX ARTERY: Mild luminal irregularities RIGHT CORONARY ARTERY: MID RCA: 80 % Stenosis INTERVENTION INFORMATION LESION SITE: RCA (Mid) Lesion Complexity: High/C, chronic total occlusion: No, lesion at bifurcation: No, thrombus present: No, lesion length: 11 mm, culprit lesion: Yes, Previously treated lesion: No Pre Stenosis: 80 % Pre intervention CASA flow: 3 PROCEDURE: Drug Eluting Stent Post Stenosis: 0 % Post intervention CASA flow: 3 Lesion Devices: [place] .014 190cm BMW Commodore Straight Medtronic 6 Fr JR4.0 100cm Guide Catheter Medtronic 4.0 x 12 JANAY FRONTIER MARIYA COMPLICATIONS No Complications PROCEDURE MEDICATIONS Fentanyl 50 mcg IV Versed 1 mg IV Fentanyl 25 mcg IV Oxygen: 2 L/min via nasal cannula Heparin given IA 06/15/2023 11:58:26 Heparin 2000 unit(s) IV 06/15/2023 12:12:32 Verapamil 2.5mg, Ntg 100mcgs, 3000 units of Heparin given IA 06/15/2023 11:58:26 SUMMARY OF HEMODYNAMIC DATA Time AIR REST ECG 09:43:55 AO 109/66 (84) SA 11:59:59 Signed By Yasmine Holloway MD On 06/18/2023 16:59:05 Yasmine Holloway MD
== END 2023-06-16 14:00 | disposition home or self-care (01) ==
LOC: CLSP 12:38 → PCU 12:47
PROVIDERS: Internal Medicine Cardiovascular Disease; Admitting Provider Specialist; PCP Family Medicine Geriatric Medicine; Referring Provider Specialist; Visit Provider Specialist
DX: I25.10 Atherosclerotic heart disease of native coronary artery without angina pectoris (principal); I71.9 Aortic aneurysm of unspecified site, without rupture; Z79.899 Other long term (current) drug therapy; R55 Syncope and collapse; Z87.891 Personal history of nicotine dependence; I10 Essential (primary) hypertension; E78.5 Hyperlipidemia, unspecified; R94.31 Abnormal electrocardiogram [ECG] [EKG]; D64.9 Anemia, unspecified; R19.5 Other fecal abnormalities
CPT/HCPCS: 36415; 80048; 80053; 85027; 92928; 93005; 93454; 96360; 96361; 99152; 99153; 99221; J7030; J7040; Q9967; C1769; C1874; C1887; C1894; C9600; G0378; J1327

== ENCOUNTER → 2023-06-29 | Outpatient (CLI) | payer OTHER, SELFPAY ==
[2023-06-29 12:36] LABS: Anion Gap 6 (5-15); BUN 17 mg/dL (7-18); BUN/Creat Ratio 18.6 RATIO (10-20); Calcium,Total 9.1 mg/dL (8.5-10.1); Chloride 108 mmol/L (98-107); Creatinine, Serum 0.91 mg/dL (0.55-1.02); EST Glomerular Filtration Rate 67 mL/min (>60); Est Glom Filt Rate - Afr Amer 81 mL/min (>60); Glucose 92 mg/dL (74-106); Potassium 4.5 mmol/L (3.5-5.1); Sodium Level 142 mmol/L (136-145)
== END | disposition home or self-care (01) ==
LOC: LAB 11:44
PROVIDERS: PCP Family Medicine Geriatric Medicine; Referring Provider Physician Assistant Medical; Visit Provider Physician Assistant Medical
DX: E87.6 Hypokalemia (principal); R00.1 Bradycardia, unspecified
CPT/HCPCS: 36415; 80048

== ENCOUNTER → 2023-07-17 | Outpatient (CLI) | payer OTHER, SELFPAY ==
[2023-07-17 15:30] LABS: Absolute Lymphocyte Count 1.77 X10^3/uL (0.83-4.51); Absolute Neutrophil Count 2.5 X10^3/uL (2.0-7.7); Basophil# 0.02 X10^3/uL; Basophil% 0.4 % (0-1); Eosinophil# 0.06 X10^3/uL; Eosinophils% 1.3 % (0-5); Hematocrit 37.2 % (37-47); Hemoglobin 12.3 g/dL (12.0-15.0); Lymphocyte # 1.77 X10^3/ul (0.83-4.51); Lymphocyte % 37.3 % (19-41); Mean Corp Hgb Conc 33.1 g/dL (32-36); Mean Corpuscular Hgb 31.7 pg (27.0-32.0); Mean Corpuscular Volume 95.9 fL (81-99); Mean Platelet Vol. 8.9 fl (6.2-12.0); Monocyte% 8.4 % (0-10); NRBC Flagged by Analyzer 0 % (0-5); Neutrophil # 2.49 X10^3/uL (2.7-7.7); Neutrophil % 52.4 % (47-70); Platelet Count 238 K/mm3 (150-450); RBC Distribution Width CV 11.9 % (11.6-14.6); RBC Distribution Width SD 41.6 fl (35.1-43.9); Red Blood Count 3.88 M/mm3 (4.2-5.4); White Blood Count 4.8 K/mm3 (4.4-11.0)
== END | disposition home or self-care (01) ==
LOC: LAB 14:59
PROVIDERS: PCP Family Medicine Geriatric Medicine; Referring Provider Internal Medicine Cardiovascular Disease; Visit Provider Internal Medicine Cardiovascular Disease
DX: I73.00 Raynaud's syndrome without gangrene (principal); I25.10 Atherosclerotic heart disease of native coronary artery without angina pectoris; R94.31 Abnormal electrocardiogram [ECG] [EKG]; E87.6 Hypokalemia; R53.83 Other fatigue; R55 Syncope and collapse
CPT/HCPCS: 36415; 85025

== ENCOUNTER 2023-07-26 19:32 | Observation (INO) | payer OTHER, SELFPAY ==
[2023-07-26 19:33] VITALS: BP 155/77; PULSE 60; RESP 16; TEMP 36.1; O2SAT 100; BMI 22.8
[2023-07-26 20:16] LABS: Bedside Glucose 79 mg/dL (74-106)
--- NOTE | 2023-07-26 20:46 | CT_ITS ---
STUDY: CTA CHEST REASON FOR EXAM: Female, 62 years old. 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 Post-processing of the angiographic images was performed, with multiplanar reformation and 3D reconstruction. Individualized dose optimization techniques were used for this CT. 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 Can be seen on coronal images 146-20, axial images 119-154, and sagittal images 147-165. The length of this abnormality is approximately 6 cm. Diameter of the aorta in this segment is 3.4 cm. There is no extravasation of contrast or evidence for leak although the left wall of the defect is less than 1 mm thick. There is limited enhancement of the main pulmonary artery and right and left pulmonary arteries. There is limited enhancement of the bilateral peripheral pulmonary arteries. Specifically, most of the contrast is seen in the aorta. Pulmonary emboli cannot be excluded beyond the pulmonary trunk. Normal heart and pericardium. Normal mediastinum. Normal hilar regions. Normal visualized trachea and bronchi. The lungs are hyper expanded, with flattening of the hemidiaphragms. There is evidence for COPD. No infiltrates or effusions. Normal osseous structures. Normal visualized upper abdomen. CT/CTA Chest W/WO Contrast IMPRESSION: Abnormal descending thoracic aorta where there is a segment of approximately 6 cm length that appears to represent a large pseudoaneurysm with a very thin overlying wall. No current evidence of leak. COPD. Electronically Signed: Balaji Waller MD at 22:33 EST ,
--- NOTE | 2023-07-26 20:55 | RAD_ITS ---
STUDY: X-RAY CHEST REASON FOR EXAM: Female, 62 years old. chest pain TECHNIQUE: Single AP portable view of the chest. COMPARISON: None. FINDINGS: There is hyperinflation of the lungs consistent with chronic obstructive lung disease (COPD). No infiltrates or effusions. There is no demonstrated pleural abnormality. Normal size heart. Normal mediastinum and gabe. Normal visualized pulmonary arteries. Normal visualized aortic arch and descending thoracic aorta. Normal visualized thoracic spine. Normal visualized ribs, clavicles, and shoulders. There is no demonstrated abnormality of the visualized soft tissue structures of the upper abdomen. RAD/Chest 1 View (Portable) IMPRESSION: There are findings consistent with COPD. There is no evidence of acute chest disease. Electronically Signed: Balaji Waller MD at 21:50 EST ,
[2023-07-26] MEDS: Aspirin 81 MG TAB.CHEW 243 MG PO (20:56)
[2023-07-26 20:57] VITALS: BP 145/78; PULSE 66; RESP 17; O2SAT 98
[2023-07-26 21:01] VITALS: BP 135/81; BP 145/78; BP 146/73; PULSE 53; PULSE 66; PULSE 68
--- OUTSIDE RECORDS SUMMARY | 2023-07-26 21:06 | XMS RPT_ITS | CCD ---
Author Name Unknown Address [address] [place] [address] Organization [facility] Care Team Providers Care Apartment Maintenance Supervisor Name Role Phone LEELA BONE Admitting Unavailable LEELA BONE Attending Unavailable LEELA BONE Primary Care Unavailable DANISHA RUST MD Consulting Unavailable PROVIDER, UNKNOWN Consulting Unavailable PROVIDER, UNKNOWN Consulting Unavailable Free, Text Entry Unavailable Unavailable Rajni Lopez Unavailable Unavailable Geneva Mendoza Unavailable Unavailable Santos Rust Unavailable Yimi Marcelo Unavailable Unavailable Dr. Santos Rust Primary Care Unavailable Fozia, Ms. Yimi Blount Attending Ms. Rajni Tse Attending Lior moran Pending, Provider Primary Care Unavailable Pending, Provider Primary Care Unavailable Geneva Mendoza Attending Dr. Santos Ward Primary Care Unavailable Fozia, Ms. Yimi Blount Attending Robbi Rust MD, Santos Primary Care Provider [phone] SANTOS RUST Primary Care Unavailable LYNN RICHARDSON Referring Unavailable LYNN RICHARDSON Attending Unavailable LYNN RICHARDSON Attending Unavailable SANTOS RUST Primary Care Unavailable LYNN RICHARDSON Referring Unavailable Medications Current Medications Medication Drug Class(es) Dates Sig (Normalized) Sig (Original) amLODIPine 5 mg oral tablet (2 sources) Dihydropyridine Calcium Channel Milad Start: 05-22-2023 take 1 tablet by mouth once daily amLODIPine 5 MG tablet Take 1 tablet by mouth daily. 0 05/22/2023 Active aspirin 81 mg chewable tablet (1 source) Platelet Aggregation Inhibitor, Nonsteroidal Anti-inflammatory Drug Start: 06-08-2023 aspirin 81 MG Chew Tab chewable tablet Chew 1 tablet daily. 30 tablet 11 06/08/2023 Active atorvastatin 40 mg oral tablet (2 sources) HMG-CoA Reductase Inhibitor Start: 05-17-2023 take 1 tablet by mouth once daily Atorvastatin 40 MG tablet Take 1 tablet by mouth daily. 0 05/17/2023 Active B Complex Vitamins (B COMPLEX 1 PO) (2 sources) Start: 05-02-2023 B Complex Vitamins (B COMPLEX 1 PO) cholecalciferol 0.025 mg oral capsule (2 sources) Vitamin D Start: 05-02-2023 Cholecalciferol (CVS D3) 25 MCG (1000 UT) capsule Take by mouth. 0 05/02/2023 Active cyclobenzaprine hydrochloride 10 mg oral tablet (5 sources) Muscle Relaxant take 1 tablet by mouth three times daily as needed Cyclobenzaprine 10 MG tablet Take 1 tablet by mouth 3 times daily as needed. 0 Active Completed/Discontinued Medications Medication Drug Class(es) Dates Sig (Normalized) Sig (Original) amoxicillin 875 mg / clavulanate 125 mg oral tablet (1 source) Penicillin-class Antibacterial Start: 08-27-2021 End: 09-05-2021 take 1 tablet by mouth twice daily at mealtime amoxicillin-clavul anate 875 mg-125 mg oral tablet ; 1 tab(s) orally 2 times a day x 10 days Quantity: 20 Refills: 0 Ordered: 27-Aug-2021 Geneva Mendoza Start: 27-Aug-2021 End: 05-Sep-2021 Status: Other Generic Substitution Allowed Comments: Finish all this medication unless otherwise directed by prescriber.Take with food or milk. Problems Active Problems Problem Classification Problem Date Documented Da te Episodic/Chronic Aortic; peripheral; and visceral artery aneurysms (5 sources) Penetrating ulcer of aorta; Translations: [Aortic aneurysm of unspecified site, without rupture] Onset: 06-08-2023 06-08-2023 Chronic Cataract (2 sources) Bilateral age-related cataract; Translations: [Unspecified age-related cataract] Onset: 05-16-2022 06-08-2023 Chronic E Codes: Struck by; against (1 source) Striking against or struck by other objects, initial encounter; Translations: [Striking against or struck by other objects, init encntr] Onset: 04-25-2022 Episodic E Codes: Unspecified (1 source) Civilian activity done for income or pay; Translations: [Civilian activity done for income or pay] Onset: 04-25-2022 Episodic Essential hypertension (1 source) Essential (primary) hypertension; Translations: [Essential (primary) hypertension] Onset: 08-27-2021 Chronic Headache; including migraine (1 source) Headache; including migraine; Translations: [Headache, unspecified] Onset: 08-27-2021 Other connective tissue disease (2 sources) Pain in right hand; Translations: [Pain in right hand] Onset: 04-25-2022 Episodic Other connective tissue disease (1 source) Other specified soft tissue disorders; Translations: [Other specified soft tissue disorders] Onset: 04-25-2022 Episodic Other skin disorders (1 source) Localized swelling, mass and lump, right upper limb; Translations: [Localized swelling, mass and lump, right upper limb] Onset: 04-25-2022 Episodic Retinal detachments; defects; vascular occlusion; and retinopathy (2 sources) Bilateral age-related nonexudative macular degeneration; Translations: [Nonexudative age-related macular degeneration, bilateral, stage unspecified] Onset: 05-16-2022 06-08-2023 Chronic Substance-related disorders (1 source) Nicotine dependence, unspecified, uncomplicated; Translations: [Nicotine dependence, unspecified, uncomplicated] Onset: 08-27-2021 Chronic Superficial injury; contusion (2 sources) Contusion of hand; Translations: [Contusion of hand(s)] Onset: 04-25-2022 04-25-2022 Episodic Unclassified (2 sources) SINUS 06-19-2021 Past or Other Problems Problem Classification Problem Date Documented Date Episodic/Chronic Malaise and fatigue (1 source) Other fatigue; Translations: [Other fatigue] Onset: 08-27-2021 Episodic Noninfectious gastroenteritis (2 sources) Colitis; Translations: [Noninfective gastroenteritis and colitis, unspecified] Onset: 12-14-2011 06-08-2023 Episodic Other upper respiratory disease (1 source) Nasal congestion; Translations: [Nasal congestion] Onset: 08-27-2021 Episodic Other upper respiratory infections (5 sources) Acute maxillary sinusitis; Translations: [Acute maxillary sinusitis] Onset: 06-19-2021 06-19-2021 Episodic Unclassified (1 source) Abdominal aortic aneurysm, without rupture, unspecified; Translations: [Abdominal aortic aneurysm, without rupture, unspecified] Onset: 06-08-2023 Results Test Name Value Interpretation Reference Range Facil ity Vital Signs Date Time Vital Sign Value Performing Clinician Facility 06-08-2023 11:05-0500 Body height 162.6 cm Lynn Richardson MD Work Phone: [phone] [place] [address] 06-08-2023 11:05-0500 Body mass index (BMI) [Ratio] 20.94 kg/m2 Lynn Richardson MD Work Phone: [phone] [place] [address] 06-08-2023 11:05-0500 Body weight 55.34 kg Lynn Richardson MD Work Phone: 1([phone])[phone] [place] [address] 06-08-2023 11:05-0500 Diastolic blood pressure 71 mm[Hg] Lynn Richardson MD Work Phone: 9([phone])[phone] [place] [address] 06-08-2023 11:05-0500 Heart rate 73 /min Lynn Richardson MD Work Phone: 0(411)[phone] [place] [address] 06-08-2023 11:05-0500 Systolic blood pressure 131 mm[Hg] Lynn Richardson MD Work Phone: 5([phone])[phone] [place] [address] 06-08-2023 09:29-0500 Body height 162.6 cm Lynn Richardson MD Work Phone: [phone])[phone] [place] [address] 06-08-2023 09:29-0500 Body mass index (BMI) [Ratio] 20.94 kg/m2 Lynn Richardson MD Work Phone: 1(885)[phone] [place] [address] 06-08-2023 09:29-0500 Body weight 55.34 kg Lynn Richardson MD Work Phone: [phone])399-048887 [place] [address] 06-08-2023 09:29-0500 Diastolic blood pressure 82 mm[Hg] Lynn Richardson MD Work Phone: [phone])[phone] [place] [address] 06-08-2023 09:29-0500 Heart rate 80 /min Lynn Richardson MD Work Phone: [facility] 06-08-2023 09:29-0500 Systolic blood pressure 144 mm[Hg] Lynn Rcihardson MD Work Phone: [facility] 04-25-2022 13:19-0400 Body height 162 cm Danisha-Chi Chad Other Phone: [facility] 04-25-2022 13:19-0400 Body temperature 97.7 [degF] Danisha-Chi Chad Other Phone: [facility] 04-25-2022 13:19-0400 Diastolic blood pressure 89 mm[Hg] Danisha-Chi Chad Other Phone: [facility] 04-25-2022 13:19-0400 Heart rate 75 /min Danisha-Chi Chad Other Phone: [facility] 04-25-2022 13:19-0400 Respiratory rate 14 /min Danisha-Chi Chad Other Phone: [facility] 04-25-2022 13:19-0400 SaO2% (BldA) [Mass fraction] 99 % Danisha-Chi Chad Other Phone: [facility] 04-25-2022 13:19-0400 Systolic blood pressure 143 mm[Hg] Danisha-Chi Chad Other Phone: [facility] 08-27-2021 12:55-0500 Body height 162.5 cm Text Entry Free [facility] 08-27-2021 12:55-0500 Body temperature 98.06 [degF] Text Entry Free [facility] 08-27-2021 12:55-0500 Diastolic blood pressure 89 mm[Hg] Text Entry Free [facility] 08-27-2021 12:55-0500 Heart rate 68 /min Text Entry Free [facility] 08-27-2021 12:55-0500 Respiratory rate 16 /min Text Entry Free [facility] 08-27-2021 12:55-0500 SaO2% (BldA) [Mass fraction] 100 % Text Entry Free [facility] 08-27-2021 12:55-0500 Systolic blood pressure 163 mm[Hg] Text Entry Free [facility] 06-19-2021 11:51-0500 Body height 162.5 cm Text Entry Free [facility] 06-19-2021 11:51-0500 Body temperature 97.7 [degF] Text Entry Free [facility] 06-19-2021 11:51-0500 Diastolic blood pressure 98 mm[Hg] Text Entry Free [facility] 06-19-2021 11:51-0500 Heart rate 75 /min Text Entry Free [facility] 06-19-2021 11:51-0500 Respiratory rate 16 /min Text Entry Free [facility] 06-19-2021 11:51-0500 SaO2% (BldA) [Mass fraction] 100 % Text Entry Free [facility] 06-19-2021 11:51-0500 Systolic blood pressure 173 mm[Hg] Text Entry Free [facility] Encounters Encounter Date Encounter Type Care Provider Facility Start: 06-08-2023 End: 06-08-2023 Office outpatient new 45 minutes Lynn Richardson MD Work Phone: [facility] Procedures Date Procedure Procedure Detail Performing Clinician Start: 06-08-2023 Ct angio abd&plvis c ntrst mtrl w/wo cntrst img Lynn Richardson MD Work Phone: Start: 06-08-2023 Creatinine blood Lynn Richardson MD Work Phone: Plan of Treatment Date Care Activity Detail Author Start: 09-07-2023 End: 06-08-2024 CT Chest and Abdomen and Pelvis WO and W contrast IV CT ANEURYSM STUDY WITH AND WITHOUT CONTRAST CHEST/ABDOMEN/PELVIS Imaging Routine Penetrating ulcer of aorta Expected: 09/07/2023 (Approximate), Expires: 06/08/2024 [facility] Work Phone: Payers Date Payer Category Payer Private Health Insurance [employer] [id number] 2023-Present [phone] [id number] [place] [address] [id number] 2023 Private Health Insurance [id number] 1960 Unknown [id number] 1960 Unknown [id number] 1960 Unknown [id number] 1960 Unknown [id number] 1962 Unknown [id number] 1960 Unknown [id number] 1960 Unknown [id number] Unknown [id number] Unknown Unknown Social History Date Type Detail Facility [facility] Tobacco smoking consumption unknown [facility] Start: 06-08-2023 [facility] End: 10-05-2021 History of tobacco use Current smoker [facility] End: 10-05-2021 History of tobacco use Cigarette Smoker [facility] Start: 06-08-2023 Cigarettes smoked current (pack per day) - Reported 1 [facility] Start: 06-08-2023 Tobacco use and exposure User of smokeless tobacco [facility] Start: 06-08-2023 Alcohol intake Ex-drinker (finding) [facility] Start: 06-08-2023 Tobacco use panel [facility] Start: 06-08-2023 Tobacco Comment Using nicotine pouches 2mg [facility] Start: 1960 Sex Assigned At Not on file [facility] History and physical note 06-08-2023 Mariam Sharp MD - 06/08/2023 11:15 AM EST Note Date & Type Note Facility 06-08-2023 History and physical note [facility]ie Ryan is a 62 y.o. female she was seen in consultation for evaluation of incidentally found descending thoracic JOAQUINA at the [facility]. Patient had incidentally found descending thoracic aortic JOAQUINA on 04/30/2023 while being worked up for a syncopal event. Patient denies current back, chest or abdominal pain. She does occasionally have back pain but attributes this to musculoskeletal causes. CT scan today demonstrates JOAQUINA in descending thoracic aorta, largest diameter 3.4cm, similar to previous exam in April. This was first found on the CT in April. Her vascular risk factors include former smoker. The patient's allergies, medications, past medical and surgical history, as well as family and social histories were reviewed. She denies family history of aortic aneurysms, dissections, ruptures. Past Medical History: Diagnosis Date Anemia 04/30/23 Colon polyps Hemorrhoids without complication Past Surgical History: Procedure Laterality Date COLONOSCOPY DIAGNOSTIC 2004 APPENDECTOMY LAPAROSCOPY ABDOMEN PERITONEUM OMENTUM DIAGNOSTIC SALPINGO-OOPHORECTOMY TONSILLECTOMY Primary/secondary >Age 14 TOTAL ABDOMINAL HYSTERECTOMY Social History Social History Socioeconomic History Marital status: Spouse name: Not on file Number of children: Not on file Years of education: Not on file Highest education level: Not on file Occupational History Not on file Tobacco Use Smoking status: Former Packs/day: 1.00 Years: 40.00 Additional pack years: 0.00 Total pack years: 40.00 Types: Cigarettes Quit date: 10/05/2021 Years since quittin.6 Smokeless tobacco: Current Tobacco comments: Using nicotine pouches 2mg Vaping Use Vaping Use: Never used Substance and Sexual Activity Alcohol use: Not Currently Drug use: Not Currently Types: Cocaine, Marijuana, Nitrous oxide Comment: Clean & sober since 1990 Sexual activity: Yes Partners: Male control/protection: Hysterectomy Other Topics Concern Occupational Exposure No Hobby Hazards No Social History Narrative Not on file Social Determinants of Health Financial Resource Strain: Not on file Food Insecurity: Not on file Transportation Needs: Not on file Physical Activity: Not on file Stress: Not on file Social Connections: Not on file Intimate Partner Violence: Not on file Housing Stability: Not on file Family History Problem Relation Age of Onset Cancer- Other Mother Hypertension Mother Stroke Mother Cancer- Other Father Hypertension Brother Medications: Current Outpatient Medications Medication Sig Dispense Refill amLODIPine 5 MG tablet Take 1 tablet by mouth daily. Atorvastatin 40 MG tablet Take 1 tablet by mouth daily. B Complex Vitamins (B COMPLEX 1 PO) Cholecalciferol (CVS D3) 25 MCG (1000 UT) capsule Take by mouth. Cyclobenzaprine 10 MG tablet Take 1 tablet by mouth 3 times daily as needed. Iron, Ferrous Sulfate, 325 (65 Fe) MG tablet Take by mouth. Losartan 25 MG tablet Take 1 tablet by mouth daily. Magnesium 500 MG tablet Take by mouth. No current facility-administered medications for this visit. Allergies: Patient has no known allergies. Review of Systems Cardiovascular: Negative for chest pain, dyspnea on exertion, palpitations, claudication and leg swelling; + for syncopal events Respiratory: Negative for shortness of breath Gastrointestinal: Negative for nausea, vomiting and abdominal pain Musculoskeletal: Negative for myalgias, back pain and joint pain Neurological: Negative for dizziness, tingling, sensory change, speech change, focal weakness,and headaches Lymph/Heme: Negative for bruises/bleeds easily All other systems are negative. PHYSICAL EXAM: Vitals: 06/08/23 1105 BP: 131/71 Pulse: 73 Constitutional: She is oriented to person, place, and time and well-developed, well-nourished, and in no distress Psychiatric: Mood, memory and affect normal HENT: Head: Normocephalic and atraumatic Neck: Normal range of motion. Neck supple. Normal carotid pulses and no JVD present. Carotid bruit is not present Cardiovascular: Normal rate, regular rhythm, S1 normal and S2 normal. No extrasystoles are present. No murmur heard. Right carotid - 2+ Left carotid - 2+ Right radial - 2+ Left radial - 2+ Right femoral - 2+ Right popliteal - 2+ Right DP - 2+ Right PT - 2+ Left femoral - 2+ Left popliteal - 2+ Left DP - 2+ Left PT - 2+ No peripheral aneurysms Pulmonary/Chest: Effort normal. No respiratory distress, no decreased breath sounds, no wheezes, no rhonchi, no rales Abdominal: Soft. Normal appearance, normal aorta and bowel sounds are normal. She exhibits no distension, no abdominal bruit, no ascites, no pulsatile midline mass and no mass. There is no hepatosplenomegaly. No tenderness Musculoskeletal: Normal range of motion Lymphadenopathy: She has no cervical adenopathy Right: No inguinal adenopathy present. Left: No inguinal adenopathy present Neurological: She is alert and oriented to person, place, and time. She has normal sensation, normal strength and intact cranial nerves Skin: Skin is warm, dry and intact. No cyanosis. Nails show no clubbing. Bilateral good capillary refill, warm, pink. No ulcerations present. Motor Exam Strength 5/5 throughout Assessment and Plan: Descending thoracic aorta JOAQUINA, asymptomatic Patient with incidentally found, newly diagnosed descending thoracic aorta JOAQUINA. Measures to 3.4cm in largest diameter with areas of dissection on proximal and distal portion. This appears chronic. We would recommend continuation of medical management with impulse control (patient is currently on blood pressure regimen), statin, and ASA. We will follow up with her in 2-[address] aneurysm study. Mariam Sharp MD Associated attestation - Lynn Richardson MD - 06/08/2023 1:04 PM EST I have personally and independently reviewed the patient clinical history, imaging, and overall clinical course thus far. I have examined the patient, and agree with the resident/fellow notes as dictated below. Very pleasant 62 yo F w/ hx of hypertension, now well controlled. 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 She was referred here for evaluation. She is doing well, denies back pain or remember any issue in the past few years with severe back pain. Her Bps are much better controlled at this point, and is on two antihypertensives. Her CT showed no significant changes from her CT back in Apr vs now. We discussed the pathophysiology- the review of her imaging shows that this is likely chronic, and may have been present for quite a while prior to its discovery. Given her current ongoing workup for her syncopy, I would like to bring her back in 2-3 months with repeat imaging to discuss the possibility of surgery. She understands. BP control is critical. Lynn Richardson MD 06/08/2023 [facility] History and physical note 06-08-2023 Mariam Sharp MD - 06/08/2023 11:15 AM EST Note Date & Type Note Facility 06-08-2023 History and physical note [facility] Amie Ryan is a 62 y.o. female she was seen in consultation for evaluation of incidentally found descending thoracic JOAQUINA at the [facility]. Patient had incidentally found descending thoracic aortic JOAQUINA on 04/30/2023 while being worked up for a syncopal event. Patient denies current back, chest or abdominal pain. She does occasionally have back pain but attributes this to musculoskeletal causes. CT scan today demonstrates JOAQUINA in descending thoracic aorta, largest diameter 3.4cm, similar to previous exam in April. This was first found on the CT in April. Her vascular risk factors include former smoker. The patient's allergies, medications, past medical and surgical history, as well as family and social histories were reviewed. She denies family history of aortic aneurysms, dissections, ruptures. Past Medical History: Diagnosis Date Anemia 04/30/23 Colon polyps Hemorrhoids without complication Past Surgical History: Procedure Laterality Date COLONOSCOPY DIAGNOSTIC 2004 APPENDECTOMY LAPAROSCOPY ABDOMEN PERITONEUM OMENTUM DIAGNOSTIC SALPINGO-OOPHORECTOMY TONSILLECTOMY Primary/secondary >Age 14 TOTAL ABDOMINAL HYSTERECTOMY Social History Social History Socioeconomic History Marital status: Spouse name: Not on file Number of children: Not on file Years of education: Not on file Highest education level: Not on file Occupational History Not on file Tobacco Use Smoking status: Former Packs/day: 1.00 Years: 40.00 Additional pack years: 0.00 Total pack years: 40.00 Types: Cigarettes Quit date: 10/05/2021 Years since quittin.6 Smokeless tobacco: Current Tobacco comments: Using nicotine pouches 2mg Vaping Use Vaping Use: Never used Substance and Sexual Activity Alcohol use: Not Currently Drug use: Not Currently Types: Cocaine, Marijuana, Nitrous oxide Comment: Clean & sober since 1990 Sexual activity: Yes Partners: Male control/protection: Hysterectomy Other Topics Concern Occupational Exposure No Hobby Hazards No Social History Narrative Not on file Social Determinants of Health Financial Resource Strain: Not on file Food Insecurity: Not on file Transportation Needs: Not on file Physical Activity: Not on file Stress: Not on file Social Connections: Not on file Intimate Partner Violence: Not on file Housing Stability: Not on file Family History Problem Relation Age of Onset Cancer- Other Mother Hypertension Mother Stroke Mother Cancer- Other Father Hypertension Brother Medications: Current Outpatient Medications Medication Sig Dispense Refill amLODIPine 5 MG tablet Take 1 tablet by mouth daily. Atorvastatin 40 MG tablet Take 1 tablet by mouth daily. B Complex Vitamins (B COMPLEX 1 PO) Cholecalciferol (CVS D3) 25 MCG (1000 UT) capsule Take by mouth. Cyclobenzaprine 10 MG tablet Take 1 tablet by mouth 3 times daily as needed. Iron, Ferrous Sulfate, 325 (65 Fe) MG tablet Take by mouth. Losartan 25 MG tablet Take 1 tablet by mouth daily. Magnesium 500 MG tablet Take by mouth. No current facility-administered medications for this visit. Allergies: Patient has no known allergies. Review of Systems Cardiovascular: Negative for chest pain, dyspnea on exertion, palpitations, claudication and leg swelling; + for syncopal events Respiratory: Negative for shortness of breath Gastrointestinal: Negative for nausea, vomiting and abdominal pain Musculoskeletal: Negative for myalgias, back pain and joint pain Neurological: Negative for dizziness, tingling, sensory change, speech change, focal weakness,and headaches Lymph/Heme: Negative for bruises/bleeds easily All other systems are negative. PHYSICAL EXAM: Vitals: 06/08/23 1105 BP: 131/71 Pulse: 73 Constitutional: She is oriented to person, place, and time and well-developed, well-nourished, and in no distress Psychiatric: Mood, memory and affect normal HENT: Head: Normocephalic and atraumatic Neck: Normal range of motion. Neck supple. Normal carotid pulses and no JVD present. Carotid bruit is not present Cardiovascular: Normal rate, regular rhythm, S1 normal and S2 normal. No extrasystoles are present. No murmur heard. Right carotid - 2+ Left carotid - 2+ Right radial - 2+ Left radial - 2+ Right femoral - 2+ Right popliteal - 2+ Right DP - 2+ Right PT - 2+ Left femoral - 2+ Left popliteal - 2+ Left DP - 2+ Left PT - 2+ No peripheral aneurysms Pulmonary/Chest: Effort normal. No respiratory distress, no decreased breath sounds, no wheezes, no rhonchi, no rales Abdominal: Soft. Normal appearance, normal aorta and bowel sounds are normal. She exhibits no distension, no abdominal bruit, no ascites, no pulsatile midline mass and no mass. There is no hepatosplenomegaly. No tenderness Musculoskeletal: Normal range of motion Lymphadenopathy: She has no cervical adenopathy Right: No inguinal adenopathy present. Left: No inguinal adenopathy present Neurological: She is alert and oriented to person, place, and time. She has normal sensation, normal strength and intact cranial nerves Skin: Skin is warm, dry and intact. No cyanosis. Nails show no clubbing. Bilateral good capillary refill, warm, pink. No ulcerations present. Motor Exam Strength 5/5 throughout Assessment and Plan: Descending thoracic aorta JOAQUINA, asymptomatic Patient with incidentally found, newly diagnosed descending thoracic aorta JOAQUINA. Measures to 3.4cm in largest diameter with areas of dissection on proximal and distal portion. This appears chronic. We would recommend continuation of medical management with impulse control (patient is currently on blood pressure regimen), statin, and ASA. We will follow up with her in 2-[address] aneurysm study. Mariam Sharp MD Associated attestation - Lynn Richardson MD - 06/08/2023 1:04 PM EST I have personally and independently reviewed the patient clinical history, imaging, and overall clinical course thus far. I have examined the patient, and agree with the resident/fellow notes as dictated below. Very pleasant 62 yo F w/ hx of hypertension, now well controlled. 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 She was referred here for evaluation. She is doing well, denies back pain or remember any issue in the past few years with severe back pain. Her Bps are much better controlled at this point, and is on two antihypertensives. Her CT showed no significant changes from her CT back in Apr vs now. We discussed the pathophysiology- the review of her imaging shows that this is likely chronic, and may have been present for quite a while prior to its discovery. Given her current ongoing workup for her syncopy, I would like to bring her back in 2-3 months with repeat imaging to discuss the possibility of surgery. She understands. BP control is critical. Lynn Richardson MD 06/08/2023 documented in this encounter [facility] Instructions 06-08-2023 Patient Instructions Note Date & Type Note Facility 06-08-2023 Instructions Riana Avery RN - 06/08/2023 11:15 AM EST WILL BE SEEING DR. RICHARDSON IN TWO TO THREE MONTHS WITH IMAGING-PLEASE OBTAIN LABS PRIOR YOU ARE TO BEGIN ASPIRIN 81 MG BY MOUTH EVERY DAY CTA Scan Instructions - Be sure to have your required blood work done within 30 days prior to your scan. If you have your blood work done outside the [facility] system, please call [phone] to inform us where you went so that we may obtain the results. - If you are not on any fluid restrictions from your doctor, increase the amount of water you drink the evening before your test. You should continue to drink water the day of your scan. This will help flush the contrast medicine from your body when the exam is finished. - Hold all Metformin (Glucophage) drugs and any combination drugs using this medication the evening before AND the morning of your scan. You may take the rest of your normal medicines with water before your scan. - If you have an allergy to IVP dye or shellfish, be sure to take your pre-medications Benadryl (Diphenhydramine) and Prednisone as directed prior to your scan. - Do not eat or drink anything except water for 4 hours before your scan. - Bring a list of your current medications with you to your scan. - If you have any questions regarding your scheduled CTA please call radiology at [phone]. documented in this encounter [facility] Evaluation note Note Date & Type Note Facility documented in this encounter [facility] Evaluation note Note Date & Type Note Facility documented in this encounter [facility] Summary Purpose Family History No Family History Records FoundNo Family History Records FoundNo Family History Records FoundNo Family History Records Found Advance Directives No Advanced Directives Records FoundNo Advanced Directives Records FoundNo Advanced Directives Records FoundNo Advanced Directives Records Found Reason for Referral Specialty Diagnoses / Procedures Referred By Contac t Referred To Contact Diagnoses Penetrating ulcer of aorta Procedures CT ANEURYSM STUDY WITH AND WITHOUT CONTRAST CHEST/ABDOMEN/PELVIS ID CT ANGIO ABD&PLVIS CNTRST MTRL W/WO CNTRST IMGES ID CT ANGIO, CHEST (NON-CORON), COMBO, INCL IMG Lynn Mccain MD [facility] [place] [address] Referral ID Status Reason Start Date Expiration Date V isits Requested Visits Authorized [id number] New Request 06/08/2023 07/02/2024 1 1 Specialty Diagnoses / Procedures Referred By Contac t Referred To Contact Diagnoses Abdominal aortic aneurysm (AAA) without rupture, unspecified part Procedures CT ANEURYSM STUDY WITH AND WITHOUT CONTRAST CHEST/ABDOMEN/PELVIS ID CT ANGIO ABD&PLVIS CNTRST MTRL W/WO CNTRST IMGES ID CT ANGIO, CHEST (NON-CORON), COMBO, INCL IMG Lynn Mccain MD [address] [id number] Referral ID Status Reason Start Date Expiration Date Visits Re quested Visits Authorized [id number] Closed 06/01/2023 06/25/2024 1 1 Additional Source Comments INFORMATION SOURCE (unrecogn ized section and content) DATE CREATED AUTHOR AUTHOR'S ORGANIZ ATION 01/18/2020 [facility] DATE CREATED AUTHOR AUTHOR'S ORGANIZ ATION 05/04/2022 [facility] DATE CREATED AUTHOR AUTHOR'S ORGANIZ ATION 06/11/2023 [facility] <item><item><item> Privacy Markings (unrecogniz ed section and content) Section Author: Ale Landon PROHIBITION ON REDISCLOSURE OF CONFIDENTIAL INFORMATION This notice accompanies a disclosure of information concerning a client made to you with the consent of such client. Section Author: Ale Landon PROHIBITION ON REDISCLOSURE OF CONFIDENTIAL INFORMATION This notice accompanies a disclosure of information concerning a client made to you with the consent of such client. Section Author: Ale Landon PROHIBITION ON REDISCLOSURE OF CONFIDENTIAL INFORMATION This notice accompanies a disclosure of information concerning a client made to you with the consent of such client. Reason for Visit (unrecogniz ed section and content) Specialty Diagnoses / Procedures Referred By Contac t Referred To Contact Vascular Surgery Diagnoses Aortic aneurysm without rupture, unspecified portion of aorta Deborah Hall MD [facility] [address] [place] [address] Referral ID Status Reason Start Date Expiration Date V isits Requested Visits Authorized [id number] New Request 05/22/2023 06/15/2024 1 1 Specialty Diagnoses / Procedures Referred By Contac t Referred To Contact Diagnoses Abdominal aortic aneurysm (AAA) without rupture, unspecified part Procedures CT ANEURYSM STUDY WITH AND WITHOUT CONTRAST CHEST/ABDOMEN/PELVIS ID CT ANGIO ABD&PLVIS CNTRST MTRL W/WO CNTRST IMGES ID CT ANGIO, CHEST (NON-CORON), COMBO, INCL IMG PROC Lynn Richardson MD [address] [place] [address] Referral ID Status Reason Start Date Expiration Date Visits Re quested Visits Authorized [id number] Closed 06/01/2023 06/25/2024 1 1 Care Teams (unrecognized sec tion and content) 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 [address] [place], [place] [id number] PCP - General 06/07/23 FOR RECORDS PERTAINING TO PATIENTS WHO ARE OR HAVE BEEN ENROLLED IN A CHEMICAL DEPENDENCY/SUBSTANCEABUSE PROGRAM, SOME INFORMATION MAY BE OMITTED. This clinical summary was aggregated from multiple sources. Caution should be exercised in using it in the provision of clinical care. This summary normalizes information from multiple sources, and as a consequence, information in this document may materially change the coding, format and clinical context of patient data. In addition, data may be omitted in some cases. CLINICAL DECISIONS SHOULD BE BASED ON THE PRIMARY CLINICAL RECORDS. [employer] provides no warranty or guarantee of the accuracy or completeness of information in this document.
[2023-07-26 21:10] LABS: Absolute Lymphocyte Count 1.66 X10^3/uL (0.83-4.51); Absolute Neutrophil Count 2.3 X10^3/uL (2.0-7.7); Basophil# 0.04 X10^3/uL; Basophil% 0.9 % (0-1); Eosinophil# 0.07 X10^3/uL; Eosinophils% 1.5 % (0-5); Hematocrit 37.5 % (37-47); Lymphocyte # 1.66 X10^3/ul (0.83-4.51); Lymphocyte % 36.6 % (19-41); Mean Corpuscular Hgb 31.1 pg (27.0-32.0); Mean Corpuscular Volume 97.2 fL (81-99); Mean Platelet Vol. 9.4 fl (6.2-12.0); Monocyte# 0.46 X10^3/uL; Monocyte% 10.2 % (0-10); NRBC Flagged by Analyzer 0 % (0-5); Neutrophil # 2.29 X10^3/uL (2.7-7.7); Neutrophil % 50.6 % (47-70); Platelet Count 244 K/mm3 (150-450); RBC Distribution Width SD 42.8 fl (35.1-43.9); Red Blood Count 3.86 M/mm3 (4.2-5.4); White Blood Count 4.5 K/mm3 (4.4-11.0)
[2023-07-26 21:28] LABS: Anion Gap 3 (5-15); BUN 22 mg/dL (7-18); BUN/Creat Ratio 23.4 RATIO (10-20); Calcium,Total 9.7 mg/dL (8.5-10.1); Chloride 108 mmol/L (98-107); Creatinine, Serum 0.94 mg/dL (0.55-1.02); EST Glomerular Filtration Rate 64 mL/min (>60); Est Glom Filt Rate - Afr Amer 78 mL/min (>60); Estimated Creatinine Clearance 54.96 ml/min; Glucose 105 mg/dL (74-106); Potassium 3.8 mmol/L (3.5-5.1); Sodium Level 138 mmol/L (136-145); Troponin-I HS (w/2H Reflex) 10 pg/mL (3.0-54.0)
[2023-07-26 22:04] VITALS: BP 134/74; PULSE 60; RESP 17; O2SAT 90
[2023-07-26 23:04] LABS: Reflex Troponin-HS? (from REC) Y
--- NOTE | 2023-07-26 23:08 | EX.ED.DYSGE1 ---
HPI History of Present Illness Chief Complaint: Syncope Informant: patient Narrative Narrative: Patient presents with lightheadedness and near syncope. Symptoms started this evening after taking a shower. Patient's primary concern is these are the same symptoms she had before she required a cardiac stent in June. Patient was initially seen and evaluated in April. 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 She was evaluated by surgery, cardiology, and vascular surgery here who recommended follow-up with a tertiary care center. Patient was seen by vascular surgery at [facility] and plan is for follow-up in August. In the meantime patient was brought in for cardiac cath in June and found to have an 80% mid RCA lesion that required stenting. Patient states that she had not had any syncopal episodes or near syncope in the last several months but her symptoms did recur again this afternoon. 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/23) Back pain Blood in stool Bradycardia Cardiology follow-up encounter Easy bruising Encounter for screening for malignant neoplasm of colon Excessive bleeding Fatigue Former smoker Guaiac positive stools History of echocardiogram History of IBS History of irregular heartbeat History of stress test Hyperlipidemia Hypertension Hypokalemia Lightheadedness Major depressive disorder, recurrent episode, in full remission Muscle spasm Numbness and tingling in both hands Post-menopausal Pseudoaneurysm of aorta Restless legs Shortness of breath on exertion 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) Syncope Vitamin D deficiency Wears contact lenses Home Medications magnesium oxide 400 mg PO DAILY 11/12/21 [History Last Taken Unknown] cyclobenzaprine 10 mg tablet 10 mg PO DAILY PRN muscle spasm 05/11/23 [History Last Taken Unknown] atorvastatin 40 mg tablet 40 mg PO QHS #30 tabs 05/17/23 [Rx Last Taken Unknown] vitamin B complex 1 tab PO DAILY 05/17/23 [History Last Taken Unknown] cholecalciferol (vitamin D3) 25 mcg (1,000 unit) tablet (Vitamin D3) 25 mcg PO DAILY 05/31/23 [History Last Taken Unknown] aspirin 81 mg tablet,delayed release (Adult Aspirin Regimen) 81 mg PO DAILY 06/12/23 [History Last Taken 06/15/23] clopidogrel 75 mg tablet 75 mg PO .COMPLEX #90 tabs 07/14/23 [Rx Last Taken Unknown] amlodipine 10 mg tablet 10 mg PO DAILY #90 tabs 07/17/23 [Rx Last Taken Unknown] losartan 50 mg tablet 50 mg PO DAILY 07/17/23 [History Last Taken Unknown] Allergy/AdvReac Type Severity Reaction Status Date / Time No Known Allergies Allergy Verified 07/26/23 19:35 Family History Mother Hypertension Cancer Arthritis CVA (cerebral vascular accident) Stomach ulcer Father Cancer bladder Grandmother Cancer Uncle Prostate carcinoma Surgical History Hx of colonoscopy Hx of hysterectomy Stented coronary artery (06/15/23) Social History Smoking Status: Former smoker alcohol intake: former year quit: 1990 substance use type: does not use caffeine: Yes Type: carbonated beverages Number of servings: 1 ROS ROS ED Constitutional Constitutional ED: Denies chills or fever(s) Eyes Eyes: Denies change in vision or discharge from eye(s) ENT ENT ED: Denies discharge from eye(s), rhinorrhea or sore throat Cardiovascular Cardiovascular: Denies chest pain or palpitations Respiratory/Chest Respiratory/Chest: Denies cough or dyspnea Gastrointestinal Gastrointestinal: Denies abdominal pain, nausea or vomiting Musculoskeletal Musculoskeletal: Denies back pain or extremity pain Integumentary Denies Abrasions or rash Neurologic Neurologic: Denies headache(s) or weakness Psychiatric Psychiatric: Denies anxiety or depression Allergic/Immunologic Allergic/Immunologic ED: Denies lip swelling or urticaria EXAM Physical Exam Const Vital Signs: 07/26/23 19:33 07/26/23 19:51 07/26/23 19:51 Temperature 96.9 F L Temperature Source Temporal Pulse Rate 60 Pulse Rate [Lying] Pulse Rate [Sitting (for 1 minute prior to obtaining)] Pulse Rate [Standing (for 1 minute prior to obtaining)] Respiratory Rate 16 Respiratory Effort Normal Respiratory Pattern Normal Blood Pressure 155/77 H Blood Pressure [Lying] Blood Pressure [Sitting (for 1 minute prior to obtaining)] Blood Pressure [Standing (for 1 minute prior to obtaining)] Blood Pressure Mean 103 Blood Pressure Mean [Lying] Blood Pressure Mean [Sitting (for 1 minute prior to obtaining)] Blood Pressure Mean [Standing (for 1 minute prior to obtaining)] Pulse Ox 100 Oxygen Delivery Method Room Air Room Air 07/26/23 20:57 07/26/23 21:01 07/26/23 22:04 Temperature Temperature Source Pulse Rate 66 60 Pulse Rate [Lying] 66 Pulse Rate [Sitting (for 1 minute prior to obtaining)] 53 L Pulse Rate [Standing (for 1 minute prior to obtaining)] 68 Respiratory Rate 17 17 Respiratory Effort Respiratory Pattern Blood Pressure 145/78 H 134/74 H Blood Pressure [Lying] 145/78 H Blood Pressure [Sitting (for 1 minute prior to obtaining)] 146/73 H Blood Pressure [Standing (for 1 minute prior to obtaining)] 135/81 H Blood Pressure Mean 100 94 Blood Pressure Mean [Lying] 100 Blood Pressure Mean [Sitting (for 1 minute prior to obtaining)] 97 Blood Pressure Mean [Standing (for 1 minute prior to obtaining)] 99 Pulse Ox 98 90 Oxygen Delivery Method Room Air Room Air Positive well nourished and well developed General Appearance ED: well developed HEENT Reports moist mucous membranes Eyes EOMs intact bilaterally Chest Wall inspection of chest normal and palpation of chest normal Resp normal respiratory effort and clear to auscultation bilaterally Cardio regular rate and regular rhythm GI non-tender Palpation: soft Extremity normal to inspection Neuro oriented x3 and no sensory deficits noted Motor Exam: strength 5/5 throughout Skin no rashes or lesions noted MDM MDM MDM Narrative Medical decision making narrative: Patient placed on bus monitor. EKG obtained to evaluate for cardiac arrhythmia/ischemia. Chest x-ray obtained to evaluate for acute lung pathology, cardiac size, or mediastinal abnormality. Labwork obtained to evaluate for leukocytosis, anemia, and electrolyte derangement. Given the patient's history of thoracic aneurysm a CTA of the chest was obtained. History & Record Review Discussion w/independent historian: Patient Additional record(s) reviewed:: Prior inpatient record, Prior outpatient record, Prior ED visit and Prior labs Lab Data Attestation: I reviewed the patient's lab results. Labs: Laboratory Results - last 24 hr 07/26/23 19:58 WBC 4.5 RBC 3.86 L Hgb 12.0 Hct 37.5 MCV 97.2 MCH 31.1 MCHC 32.0 RDW Std Deviation 42.8 RDW Coeff of Yulia 12.0 Plt Count 244 MPV 9.4 Immature Gran % (Auto) 0.200 Neut % (Auto) 50.6 Lymph % (Auto) 36.6 [place] % (Auto) 10.2 H Eos % (Auto) 1.5 Baso % (Auto) 0.9 Absolute Neuts (auto) 2.3 Absolute Lymphs (auto) 1.66 Nucleated RBC % 0 Sodium 138 Potassium 3.8 Chloride 108 H Carbon Dioxide 27.0 Anion Gap 3 L BUN 22 H Creatinine 0.94 Estim Creat Clear Calc 54.96 Est GFR (MDRD) Af Amer 78 Est GFR (MDRD) Non-Af 64 BUN/Creatinine Ratio 23.4 H Glucose 105 Calcium 9.7 Troponin I High Sens 10 POC Glucose 79 Radiography Chest X-Ray - ED: 1 View, Read by ED Physician, Normal, Heart, Lungs and Mediastinum Diagnostic Testing: Clinical Impression(s) from Imaging Studies Chest CTA 07/26/23 20:46 IMPRESSION: Abnormal descending thoracic aorta where there is a segment of approximately 6 cm length that appears to represent a large pseudoaneurysm with a very thin overlying wall. No current evidence of leak. COPD. Electronically Signed: Balaji Waller MD at 22:33 EST , Chest X-Ray 07/26/23 20:55 IMPRESSION: There are findings consistent with COPD. There is no evidence of acute chest disease. Electronically Signed: Balaji Waller MD at 21:50 EST , EKG Initial EKG: Attestation: I personally reviewed and interpreted this EKG as follows: Interpretation: Sinus Bradycardia (Sinus bradycardia 59 bpm. PVCs noted. 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 She is given 3 additional baby aspirin. She just recently switched from Brilinta to Plavix. CBC was normal white count 4.5 with a hemoglobin of 12.0. Differential unremarkable. Chemistry studies significant for BUN 22. Initial troponin normal at 10. Portable chest x-ray shows chronic changes with no evidence of focal infiltrate. Radiology interpretation reviewed and agrees. CTA of the chest reveals abnormal descending thoracic aorta with a segment of approximately 6 cm in length appearing to represent a pseudoaneurysm. No evidence of leak. Measurements of the pseudoaneurysm today are compared to prior study from April. This appears largely unchanged. With patient having near syncope I will discuss with hospitalist regarding observation overnight for monitoring of cardiac enzymes and vital signs. Patient is comfortable this plan. Discharge Plan Triage Chief Complaint: Syncope ED Provider: Niecy Joseph Dx/Rx/DC Orders Clinical Impression: Near syncope Prescriptions: No Action magnesium oxide 400 mg magnesium tablet 400 mg PO DAILY cyclobenzaprine 10 mg tablet 10 mg PO DAILY PRN (Reason: muscle spasm) vitamin B complex Tablet 1 tab PO DAILY atorvastatin 40 mg tablet 40 mg PO QHS Qty: 30 2RF losartan 50 mg tablet 50 mg PO DAILY amlodipine 10 mg tablet 10 mg PO DAILY Qty: 90 3RF cholecalciferol (vitamin D3) [Vitamin D3] 25 mcg (1,000 unit) tablet 25 mcg PO DAILY aspirin [Adult Aspirin Regimen] 81 mg tablet,delayed release (DR/EC) 81 mg PO DAILY clopidogrel 75 mg tablet 75 mg PO .COMPLEX Qty: 90 3RF Rx Instructions: 75 mg orally 4 tablets by mouth ALL at once for loading dose on [id number]/14/24, then ONE tablet by mouth DAILY. Stop Brilinta 05/15. Primary Care Provider: Renato Bonilla Chi Referrals: Renato Bonilla Chi, MD [Primary Care Provider] - Disposition Disposition: Acute Care Hospital [facility]
[2023-07-26 23:14] VITALS: BP 123/75; PULSE 58; RESP 16; O2SAT 94
[2023-07-26 23:15] VITALS: BP 129/74; PULSE 58; RESP 14; TEMP 36.7; O2SAT 96
--- NOTE | 2023-07-26 23:26 | HP.PCM.HOS_ITS ---
HPI - General General Date of Admission: 07/26/23 Date of Service: 07/26/23 Chief Complaint: Lightheadedness, near syncope. HPI Narrative The patient is a 62 y/o F w/ PMHx: CAD s/p PCI, HTN, HLD, Chronic anemia, Pseudoaortic aneurysm, Chronic bradycardia, Valvular Heart Disease, Former tobacco use, history of 3 syncopal events with lightheadedness just prior to the syncopal event usually awakening in less than a minute with no chest discomfort or dyspnea prior to the event prompting recent cardiac catheterization with eventual PCI who now represents to the [facility] ED on 07/26/2023 with history of recurrent similar symptoms on day prior to presentation just after taking a shower with lightheadedness and near syncope but no LOC prompting ED evaluation. She notes prior with this she would have BL LE tingling, persistent dizziness, nausea and emesis but currently she notes only mild residual headache on the top and posterior regions, mild and improving. She notes she had just taken a hot shower at her mother's home as she recently loss access to natural gas thus she has not had heated water. Workup in the ED included T98.1, heart rate 58, BP 129/74, respiratory rate 14, 96% on room air, CBC with WBC 4.5, human 12, MCV 97.2, platelet 244 without marked shift, BMP with chloride 108, BUN/creatinine 22/0.94 otherwise unremarkable, troponin initial 10 with repeat delta pending upon requested evaluation of patient, chest x-ray with COPD type changes with no acute cardiopulmonary findings, CTPA with abnormal descending thoracic aorta with a segment of approximately 6 cm length that appears to represent a large pseudoaneurysm with a very thin overlying wall with no evidence of any leak and COPD type changes, EKG with sinus bradycardia with no acute evidence of ischemia. [facility] Medical History Abnormal ECG Abnormal findings diagnostic imaging of heart and coronary circulation (06/07/23) Anemia Anxiety Atherosclerotic heart disease of [place] coronary artery without angina pectoris (06/07/23) Back pain Blood in stool Bradycardia Cardiology follow-up encounter Easy bruising Encounter for screening for malignant neoplasm of colon Excessive bleeding Fatigue Former smoker Guaiac positive stools History of echocardiogram History of IBS History of irregular heartbeat History of stress test Hyperlipidemia Hypertension Hypokalemia Lightheadedness Major depressive disorder, recurrent episode, in full remission Muscle spasm Numbness and tingling in both hands Post-menopausal Pseudoaneurysm of aorta Restless legs Shortness of breath on exertion 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) Syncope Vitamin D deficiency Wears contact lenses Home Medications magnesium oxide 400 mg PO DAILY 11/12/21 [History Last Taken Unknown] cyclobenzaprine 10 mg tablet 10 mg PO DAILY PRN muscle spasm 05/11/23 [History Last Taken Unknown] atorvastatin 40 mg tablet 40 mg PO QHS #30 tabs 05/17/23 [Rx Last Taken Unknown] vitamin B complex 1 tab PO DAILY 05/17/23 [History Last Taken Unknown] cholecalciferol (vitamin D3) 25 mcg (1,000 unit) tablet (Vitamin D3) 25 mcg PO DAILY 05/31/23 [History Last Taken Unknown] aspirin 81 mg tablet,delayed release (Adult Aspirin Regimen) 81 mg PO DAILY 06/12/23 [History Last Taken 06/15/23] clopidogrel 75 mg tablet 75 mg PO .COMPLEX #90 tabs 07/14/23 [Rx Last Taken Unknown] amlodipine 10 mg tablet 10 mg PO DAILY #90 tabs 07/17/23 [Rx Last Taken Unknown] losartan 50 mg tablet 50 mg PO DAILY 07/17/23 [History Last Taken Unknown] Allergy/AdvReac Type Severity Reaction Status Date / Time No Known Allergies Allergy Verified 07/26/23 19:35 Family History Mother Hypertension Cancer Arthritis CVA (cerebral vascular accident) Stomach ulcer Father Cancer bladder Grandmother Cancer Uncle Prostate carcinoma Surgical History Hx of colonoscopy Hx of hysterectomy Stented coronary artery (06/15/23) Social History household members: spouse Smoking Status: Former smoker alcohol intake: former year quit: 1990 substance use type: does not use caffeine: Yes Type: carbonated beverages Number of servings: 1 ROS ROS Narrative Admission Review of Systems: CONSTITUTIONAL: No weight loss, fever, chills, + weakness or fatigue. HEENT: + Mild headache. Eyes: No visual loss, blurred vision, double vision or yellow sclerae. Ears, Nose, Throat: No hearing loss, sneezing, congestion, runny nose or sore throat. SKIN: No rash or itching, lesions, wounds. CARDIOVASCULAR: + Near syncope w/ LH/dizziness. No chest pain, chest pressure or chest discomfort, palpitations, edema, orthopnea. RESPIRATORY: No shortness of breath, cough or sputum, wheezing, hemoptysis. GASTROINTESTINAL: No anorexia, nausea, vomiting or diarrhea, abdominal pain, melena, BRBPR. GENITOURINARY: No dysuria, frequency, urgency or retention. NEUROLOGICAL: + LH/Dizziness, near syncope, headache. No paralysis, ataxia, numbness or tingling in the extremities, focal weakness, change in bowel or bladder control, seizure. MUSCULOSKELETAL: No muscle, back pain, joint pain or stiffness. HEMATOLOGIC: + anemia, easy bleeding/bruising. LYMPHATICS: No enlarged nodes. No history of splenectomy. PSYCHIATRIC: + Hx anxiety. ENDOCRINOLOGIC: No reports of sweating, cold or heat intolerance. No polyuria or polydipsia. ALLERGIES: No history of asthma, hives, eczema or rhinitis. Vital Signs Vital Signs Vital Signs: 07/26/23 19:33 07/26/23 19:51 07/26/23 19:51 Temperature 96.9 F L Temperature Source Temporal Pulse Rate 60 Pulse Rate [Lying] Pulse Rate [Sitting (for 1 minute prior to obtaining)] Pulse Rate [Standing (for 1 minute prior to obtaining)] Respiratory Rate 16 Respiratory Effort Normal Respiratory Pattern Normal Blood Pressure 155/77 H Blood Pressure [Lying] Blood Pressure [Sitting (for 1 minute prior to obtaining)] Blood Pressure [Standing (for 1 minute prior to obtaining)] Blood Pressure Mean 103 Blood Pressure Mean [Lying] Blood Pressure Mean [Sitting (for 1 minute prior to obtaining)] Blood Pressure Mean [Standing (for 1 minute prior to obtaining)] Pulse Ox 100 Oxygen Delivery Method Room Air Room Air 07/26/23 20:57 07/26/23 21:01 07/26/23 22:04 Temperature Temperature Source Pulse Rate 66 60 Pulse Rate [Lying] 66 Pulse Rate [Sitting (for 1 minute prior to obtaining)] 53 L Pulse Rate [Standing (for 1 minute prior to obtaining)] 68 Respiratory Rate 17 17 Respiratory Effort Respiratory Pattern Blood Pressure 145/78 H 134/74 H Blood Pressure [Lying] 145/78 H Blood Pressure [Sitting (for 1 minute prior to obtaining)] 146/73 H Blood Pressure [Standing (for 1 minute prior to obtaining)] 135/81 H Blood Pressure Mean 100 94 Blood Pressure Mean [Lying] 100 Blood Pressure Mean [Sitting (for 1 minute prior to obtaining)] 97 Blood Pressure Mean [Standing (for 1 minute prior to obtaining)] 99 Pulse Ox 98 90 Oxygen Delivery Method Room Air Room Air 07/26/23 23:14 07/26/23 23:15 Temperature 98.1 F Temperature Source Pulse Rate 58 L 58 L Pulse Rate [Lying] Pulse Rate [Sitting (for 1 minute prior to obtaining)] Pulse Rate [Standing (for 1 minute prior to obtaining)] Respiratory Rate 16 14 Respiratory Effort Respiratory Pattern Blood Pressure 123/75 H 129/74 H Blood Pressure [Lying] Blood Pressure [Sitting (for 1 minute prior to obtaining)] Blood Pressure [Standing (for 1 minute prior to obtaining)] Blood Pressure Mean 91 92 Blood Pressure Mean [Lying] Blood Pressure Mean [Sitting (for 1 minute prior to obtaining)] Blood Pressure Mean [Standing (for 1 minute prior to obtaining)] Pulse Ox 94 96 Oxygen Delivery Method Room Air Weight Weight: 133 lb 2 oz Body Mass Index (BMI) 22.8 Physical Exam Narrative Physical Examination: General: Awake, alert, oriented x 3 and cooperative, seated upright in the ED bed in no apparent distress, notes improved. Skin: Normal color, normal turgor, no icterus, no cyanosis. HEENT: AT/NC, EOMI, PERRLA, MMM, no carotid bruits or JVD noted. Lungs: CTA bilaterally, moderate effort, mild decrease BL bases, no rales, ronchi or wheezing. Heart: Bradycardic with regular rhythm; no gallop, rub audible. Abdomen: Soft, NTTP, ND, normal BS, no HSM. Extremities: No cyanosis, clubbing, or edema. Neurological: Patient awake, alert, oriented as noted, cognitive function intact; pupils equally reactive to light and accommodation, cranial nerves grossly normal, moving all 4 extremities, no focal deficits, strength improved, mildly globally decreased secondary to acute complaints. Psychiatric: Affect appears fatigued otherwise normal, no acute evidence of depressive or anxiety feelings but does have anxiety history. Results Lab / Micro Data 07/26/23 19:58 07/26/23 19:58 Labs: Laboratory Results - last 24 hr 07/26/23 19:58: WBC 4.5, RBC 3.86 L, Hgb 12.0, Hct 37.5, MCV 97.2, MCH 31.1, MCHC 32.0, RDW Std Deviation 42.8, RDW Coeff of Yulia 12.0, Plt Count 244, MPV 9.4, Immature Gran % (Auto) 0.200, Neut % (Auto) 50.6, Lymph % (Auto) 36.6, Nicholas % (Auto) 10.2 H, Eos % (Auto) 1.5, Baso % (Auto) 0.9, Absolute Neuts (auto) 2.3, Absolute Lymphs (auto) 1.66, Nucleated RBC % 0, Sodium 138, Potassium 3.8, Chloride 108 H, Carbon Dioxide 27.0, Anion Gap 3 L, BUN 22 H, Creatinine 0.94, Estim Creat Clear Calc 54.96, Est GFR (MDRD) Af Amer 78, Est GFR (MDRD) Non-Af 64, BUN/Creatinine Ratio 23.4 H, Glucose 105, Calcium 9.7, Troponin I High Sens 10, POC Glucose 79 Imagaing Radiology Impression Chest CTA 07/26/23 20:46 IMPRESSION: Abnormal descending thoracic aorta where there is a segment of approximately 6 cm length that appears to represent a large pseudoaneurysm with a very thin overlying wall. No current evidence of leak. COPD. Electronically Signed: Balaji Waller MD at 22:33 EST , Chest X-Ray 07/26/23 20:55 IMPRESSION: There are findings consistent with COPD. There is no evidence of acute chest disease. Electronically Signed: Balaji Waller MD at 21:50 EST , Assessment & Plan Assessment/Plan (1) Near syncope: PLAN: Plan The patient is a 62 y/o F w/ PMHx: CAD s/p PCI, HTN, HLD, Chronic anemia, Pseudoaortic aneurysm, Chronic bradycardia, Valvular Heart Disease, Former tobacco use, history of 3 syncopal events with lightheadedness just prior to the syncopal event usually awakening in less than a minute with no chest discomfort or dyspnea prior to the event prompting recent cardiac catheterization with eventual PCI who now represents to the [facility] ED on 07/26/2023 with history of recurrent similar symptoms on day prior to presentation just after taking a shower with lightheadedness and near syncope but no LOC prompting ED evaluation. #1. Recurrent Lightheadedness, Near Syncopal Event: EKG in ED w/ sinus bradycardic rhythm without evidence of acute ischemia, CXR w/ no acute cardiopulmonary findings, CTPA without acute findings and stable pseudoaneurysm per report, initial trop normal. Will admit to PCU, place on a monitored bed to assure no acute myocardial infarction with serial cardiac enzymes and EKGs. Will maintain on fall precautions, obtain admission orthostatic to be cautious. If concerns arise including EKG changes, elevated troponin series low threshold to involve Cardiology service. #2. Pseudoaortic aneurysm: CTPA with abnormal descending thoracic aorta with a segment of approximately 6 cm length that appears to represent a large p seudoaneurysm with a very thin overlying wall with no evidence of any leak. CT 04/30/23 Chase Dougherty with 5.1 cm long pseudoaneurysm of the mid descending aorta. Patient did have follow-up with vascular surgery Dr. Anderson and was eventually referred to tertiary facility. From discussion with ED and review of records this image currently appears similar to previous. Encourage close early CT/vascular surgery continued evaluation/follow-up which currently she notes is planned for August at [facility]. #3. CAD: 06/18/2023 cardiac catheterization noted to be right dominant, left main with mild luminal irregularities, left anterior descending artery with mild luminal irregularities, circumflex artery with mild luminal irregularities, right coronary artery with mid RCA 80% stenosis with MARIYA to the mid RCA, will continue aspirin, Plavix, losartan, not on beta-tabatha therapy given chronic bradycardia. #4. Valvular heart disease: Mild concentric LVH, LV normal size, systolic EF 55 to 60% with no regional wall motion abnormality, mild MV regurgitation, moderate TV regurgitation, mild to moderate AV regurgitation, trivial PV regurgitation. #5. Hypertension: Continue home regimen including losartan, amlodipine, PRN hydralazine. #6. Hyperlipidemia: Continue home statin regimen. #7. Anxiety: Per current list on a regimen, encourage continued outpatient follow-up as needed. #8. Restless leg syndrome: Patient uses per record cyclobenzaprine as needed. #9. Former tobacco use: Encourage continued tobacco cessation. #10. DVT Prophylaxis: Lovenox. #11. CODE status: Patient HCPOA and LW are not in place but her would be her decision maker if she was unable. Discussed CODE status at length including difference between FULL code, DNR-CCA and DNR-CC status. Following dis cussions about the differences in these status, requested Full Code status. Advanced Care Planning Face to Face Time: 16 minutes. Charges/Coding Visit Charges Inpatient E&M: 54359 Init Hosp L2 Procedures Hospitalists Procedures: 45919 Advncd Care Plan 30 Min
[2023-07-26 23:36] LABS: Troponin-I HS 12 pg/mL (3.0-54.0)
--- OUTSIDE RECORDS SUMMARY | 2023-07-26 23:51 | XMS RPT_ITS | CCD ---
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 Sanots Rust Primary Care Unavailable Fozia, Ms. Yimi Blount Attending Ms. Rajni Tse Attending Lior moran Pending, Provider Primary Care Unavailable Pending, Provider Primary Care Unavailable Geneva Mendoza Attending Dr. Santos Ward Primary Care Unavailable Fozia, Ms. Yimi Blount Attending Robbi Rust MD, Santos Primary Care Provider [phone] SANTOS RUST Primary Care Unavailable LYNN RICHARDSON [...] 162.6 cm Lynn Richardson MD Work Phone: [phone] [place] [address] 06-08-2023 11:05-0500 Body mass index (BMI) [Ratio] 20.94 kg/m2 Lynn Richardson MD Work Phone: [phone] [place] [address] 06-08-2023 11:05-0500 Body weight 55.34 kg Lynn Richardson MD Work Phone: [phone])[phone] [place] [address] 06-08-2023 11:05-0500 Diastolic blood pressure 71 mm[Hg] Lynn Richardson MD Work Phone: [phone])[phone] [place] [address] 06-08-2023 11:05-0500 Heart rate 73 /min Lynn Richardson MD Work Phone: [phone] [place] [address] 06-08-2023 11:05-0500 Systolic blood pressure 131 mm[Hg] Lynn Richardson MD Work Phone: [phone] [place] [address] 06-08-2023 09:29-0500 Body height 162.6 cm Lynn Richardson MD Work Phone: [phone])[phone] [place] [address] 06-08-2023 09:29-0500 Body mass index (BMI) [Ratio] 20.94 kg/m2 Lynn Richardson MD Work Phone: [phone])[phone] [place] [address] 06-08-2023 09:29-0500 Body weight 55.34 kg Lynn Richardson MD Work Phone: [phone])[phone] [place] [address] 06-08-2023 09:29-0500 Diastolic blood pressure 82 mm[Hg] Lynn Richardson MD Work Phone: 1(725)[phone] [place] [address] 06-08-2023 09:29-0500 Heart rate 80 /min Lynn Richardson MD Work Phone: [facility] 06-08-2023 09:29-0500 Systolic blood pressure 144 mm[Hg] Lynn Richardson MD Work Phone: [facility] 04-25-2022 13:19-0400 Body height 162 cm Danisha-Chi Chad Other Phone: [facility] 04-25-2022 13:19-0400 Body temperature 97.7 [degF] Danisha-Chi Chad Other Phone: [facility] 04-25-2022 13:19-0400 Diastolic blood pressure 89 mm[Hg] Danisha-Chi Chad Other Phone: [facility] 04-25-2022 13:19-0400 Heart rate 75 /min Danisha-Chi Chad Other Phone: [facility] 04-25-2022 13:19-0400 Respiratory rate 14 /min Danisha-Chi Chad Other Phone: [facility] 04-25-2022 13:19-0400 SaO2% (BldA) [Mass fraction] 99 % Danisha-Chi Chad Other Phone: [facility] 04-25-2022 13:19-0400 Systolic blood pressure 143 mm[Hg] Danisha-Chi Chad Other Phone: [facility] 08-27-2021 12:55-0500 Body height 162.[address] Entry Free [facility] 08-27-2021 12:55-0500 Body temperature 98.06 [degF] Text Entry Free [facility] 08-27-2021 12:55-0500 Diastolic blood pressure 89 mm[Hg] Text Entry Free [facility] 08-27-2021 12:55-0500 Heart rate 68 /min Text Entry Free [facility] 08-27-2021 12:55-0500 Respiratory rate 16 /min Text Entry Free [facility] 08-27-2021 12:55-0500 SaO2% (BldA) [Mass fraction] 100 % Text Entry Free [facility] 08-27-2021 12:55-0500 Systolic blood pressure 163 mm[Hg] Text Entry Free [facility] 06-19-2021 11:51-0500 Body height 162.5 [address] Text Entry Free [facility] 06-19-2021 11:51-0500 Body temperature 97.7 [degF] Text Entry Free [facility] 06-19-2021 11:51-0500 Diastolic blood pressure 98 mm[Hg] Text Entry Free [facility] 06-19-2021 11:51-0500 Heart rate 75 /min Text Entry Free [facility] 06-19-2021 11:51-0500 Respiratory rate 16 /min Text Entry Free [facility] 06-19-2021 11:51-0500 SaO2% (BldA) [Mass fraction] 100 % Text Entry Free [facility] 06-19-2021 11:51-0500 Systolic blood pressure 173 mm[Hg] Text Entry Free [facility] Encounters Encounter Date Encounter Type Care Provider [...] of aorta Expected: 09/07/2023 (Approximate), Expires: 06/08/2024 [facility] Work Phone: Payers Date Payer Category Payer Private Health Insurance [employer] [id number] 2023-Present [phone] [address] [facility] [address] [id number] 2023 Private Health Insurance [id number] 1960 Unknown [id number] 1960 Unknown [id number] 9 1962 Unknown [id number] 9 1960 Unknown [id number] 9 1962 Unknown [id number] 1960 Unknown [id number] 1960 Unknown [id number] 94 Unknown [id number] Unknown Unknown Social History Date Type Detail Facility [facility] Tobacco smoking consumption unknown [facility] Start: 06-08-2023 [facility] End: 10-05-2021 History of tobacco use Current smoker [facility] End: 10-05-2021 History of tobacco use Cigarette Smoker [facility] Start: 06-08-2023 Cigarettes smoked current (pack per day) - Reported 1 [facility] Start: 06-08-2023 Tobacco use and exposure User of smokeless tobacco [facility] Start: 06-08-2023 Alcohol intake Ex-drinker (finding) [facility] Start: 06-08-2023 Tobacco use panel [facility] Start: 06-08-2023 Tobacco Comment Using nicotine pouches 2mg [facility] Start: 1960 Sex Assigned At Not on file [facility] History and physical note 06-08-2023 Mariam Sharp MD - 06/08/2023 11:15 AM EST Note Date & Type Note Facility 06-08-2023 History and physical note [facility] Amie Ryan is a 62 y.o. female she was seen in consultation for evaluation of incidentally found descending thoracic JOAQUINA at the [facility] Out[facility]. Patient had incidentally [...] control is critical. Lynn Richardson MD 06/08/2023 [facility] History and physical note 06-08-2023 Mariam Sharp MD - 06/08/2023 11:15 AM EST Note Date & Type Note Facility 06-08-2023 History and physical note [facility] H&P Amie Ryan is a 62 y.o. female she was seen in consultation for evaluation of incidentally found descending thoracic JOAQUINA at the [facility] Outpatient [facility]. Patient had incidentally [...] Richardson MD 06/08/2023 documented in this encounter [facility] Instructions 06-08-2023 Patient Instructions Note Date & [...] done outside the [facility] system, please call [phone] to inform us where you went so [...] your scheduled CTA please call radiology at [phone]. documented in this encounter [facility] Evaluation note Note Date & Type Note Facility documented in this encounter [facility] Evaluation note Note Date & Type Note Facility documented in this encounter [facility] Summary Purpose Family History No Family History [...] ANEURYSM STUDY WITH AND WITHOUT CONTRAST CHEST/ABDOMEN/PELVIS [place] CT ANGIO ABD&PLVIS CNTRST MTRL W/WO CNTRST IMGES [place] ANGIO, CHEST (NON-CORON), COMBO, INCL IMG Lynn Mccain MD [facility] [place] [address] Referral ID Status Reason Start Date Expiration Date V isits Requested Visits Authorized [id number] New Request 06/08/2023 07/02/2024 1 1 Specialty Diagnoses / Procedures Referred By Contac t Referred To Contact Diagnoses Abdominal aortic aneurysm (AAA) without rupture, unspecified part Procedures CT ANEURYSM STUDY WITH AND WITHOUT CONTRAST CHEST/ABDOMEN/PELVIS [place] CT ANGIO ABD&PLVIS CNTRST MTRL W/WO CNTRST IMGES [place] ANGIO, CHEST (NON-CORON), COMBO, INCL IMG Lynn Mccain MD [address] [id number] Referral ID Status Reason Start Date Expiration Date Visits Re quested Visits Authorized [id number] Closed 06/01/2023 06/25/2024 1 1 Additional Source Comments INFORMATION SOURCE (unrecogn ized section and content) DATE CREATED AUTHOR AUTHOR'S ORGANIZ ATION 01/18/2020 [facility] DATE CREATED AUTHOR AUTHOR'S ORGANIZ ATION 05/04/2022 [facility] DATE CREATED AUTHOR AUTHOR'S ORGANIZ ATION 06/11/2023 [facility] <item><item><item> Privacy Markings (unrecogniz ed section and [...] unspecified portion of aorta Deborah Hall MD [facility] [address] [place] [address] Referral ID Status Reason Start Date Expiration Date V isits Requested Visits Authorized [id number] New Request 05/22/2023 06/15/2024 1 1 Specialty Diagnoses / Procedures Referred By Contac t Referred To Contact Diagnoses Abdominal aortic aneurysm (AAA) without rupture, unspecified part Procedures CT ANEURYSM STUDY WITH AND WITHOUT CONTRAST CHEST/ABDOMEN/PELVIS [place] CT ANGIO ABD&PLVIS CNTRST MTRL W/WO CNTRST IMGES [place] CT ANGIO, CHEST (NON-CORON), COMBO, INCL IMG PROC Lynn Richardson MD [address] [place] [address] Referral ID Status Reason Start Date Expiration Date Visits Re quested Visits Authorized [id number] Closed 06/01/2023 06/25/2024 1 1 Care Teams (unrecognized sec tion and content) [employer] Relationship Specialty Start Date End Date Santos Rust MD [address] [facility] [address] [place], [place] [id number] PCP - General 06/07/23 FOR RECORDS PERTAINING [...] BE BASED ON THE PRIMARY CLINICAL RECORDS. [employer] provides no warranty or guarantee of the accuracy or completeness of information in this document.
--- OUTSIDE RECORDS SUMMARY | 2023-07-26 23:52 | XMS RPT_ITS | CCD ---
Author Name Unknown Address [address] [place] [address] Organization [facility] Care Team Providers Care Business Systems Administrator Name Role Phone LEELA BONE Admitting Unavailable [...] Robbi Rust MD, Santos Primary Care Provider [phone] SANTOS RUST Primary Care Unavailable LYNN RICHARDSON [...] 162.6 cm Lynn Richardson MD Work Phone: [phone] [place] [address] 06-08-2023 11:05-0500 Body mass index (BMI) [Ratio] 20.94 kg/m2 Lynn Richardson MD Work Phone: 0(832)[phone] [place] [address] 06-08-2023 11:05-0500 Body weight 55.34 kg Lynn Richardson MD Work Phone: 1(348)280-718410 [place] [address] 06-08-2023 11:05-0500 Diastolic blood pressure 71 mm[Hg] Lynn Richardson MD Work Phone: 0(420)[phone] [place] [address] 06-08-2023 11:05-0500 Heart rate 73 /min Lynn Richardson MD Work Phone: 9(435)[phone] [place] [address] 06-08-2023 11:05-0500 Systolic blood pressure 131 mm[Hg] Lynn Richardson MD Work Phone: 6(580)115-641210 [place] [address] 06-08-2023 09:29-0500 Body height 162.6 cm Lynn Richardson MD Work Phone: 9(963)[phone] [place] [address] 06-08-2023 09:29-0500 Body mass index (BMI) [Ratio] 20.94 kg/m2 Lynn Richardson MD Work Phone: 3(199)[phone] [place] [address] 06-08-2023 09:29-0500 Body weight 55.34 kg Lynn Richardson MD Work Phone: 4(810)[phone] [place] [address] 06-08-2023 09:29-0500 Diastolic blood pressure 82 mm[Hg] Lynn Richardson MD Work Phone: 7(067)[phone] [place] [address] 06-08-2023 09:29-0500 Heart rate 80 /min Lynn Richardson MD Work Phone: [facility] 06-08-2023 09:29-0500 Systolic blood pressure 144 mm[Hg] Lynn Richardson MD Work Phone: [facility] 04-25-2022 13:19-0400 Body height 162 cm Danisha-Chi Chad Other Phone: [facility] 04-25-2022 13:19-0400 Body temperature 97.7 [degF] Danisha-Chi Chad Other Phone: [facility] 04-25-2022 13:19-0400 Diastolic blood pressure 89 mm[Hg] Danisha-Chi Chad Other Phone: [facility] 04-25-2022 13:19-0400 Heart rate 75 /min Danisha-Chi Chad Other Phone: [facility] 04-25-2022 13:19-0400 Respiratory rate 14 /min Danisha-Chi Chad Other Phone: [facility] 04-25-2022 13:19-0400 SaO2% (BldA) [Mass fraction] 99 % Danisha-Chi Chad Other Phone: [facility] 04-25-2022 13:19-0400 Systolic blood pressure 143 mm[Hg] Danisha-Chi Chad Other Phone: [facility] 08-27-2021 12:55-0500 Body height 162.5 cm Text Entry Free [facility] 08-27-2021 12:55-0500 Body temperature 98.06 [degF] Text Entry [facility] 08-27-2021 12:55-0500 Diastolic blood pressure 89 mm[Hg] Text Entry [facility] 08-27-2021 12:55-0500 Heart rate 68 /min Text Entry [facility] 08-27-2021 12:55-0500 Respiratory rate 16 /min Text Entry [facility] 08-27-2021 12:55-0500 SaO2% (BldA) [Mass fraction] 100 % Text Entry [facility] 08-27-2021 12:55-0500 Systolic blood pressure 163 mm[Hg] Text Entry [facility] 06-19-2021 11:51-0500 Body height 162.5 cm Text Entry [facility] 06-19-2021 11:51-0500 Body temperature 97.7 [degF] Text Entry [facility] 06-19-2021 11:51-0500 Diastolic blood pressure 98 mm[Hg] Text Entry Free [facility] 06-19-2021 11:51-0500 Heart rate 75 /min Text Entry [facility] 06-19-2021 11:51-0500 Respiratory rate 16 /min Text Entry [facility] 06-19-2021 11:51-0500 SaO2% (BldA) [Mass fraction] 100 % Text Entry [facility] 06-19-2021 11:51-0500 Systolic blood pressure 173 mm[Hg] Text Entry Free [facility] Encounters Encounter Date Encounter Type Care [...] of aorta Expected: 09/07/2023 (Approximate), Expires: 06/08/2024 [facility] Work Phone: Payers Date Payer Category Payer Private Health Insurance [employer] [id number] 2023-Present [phone] [id number] [place] [address] [id number] 2023 Private Health Insurance [id number] 1960 Unknown [id number] 1960 Unknown [id number] 1962 Unknown [id number] 9 1960 Unknown [id number] 9 1962 Unknown [id number] 1960 Unknown [id number] 1960 Unknown [id number] 94 Unknown [id number] Unknown Unknown Social History Date Type Detail Facility [facility] Tobacco smoking consumption unknown [facility] Start: 06-08-2023 [facility] End: 10-05-2021 History of tobacco use Current smoker [facility] End: 10-05-2021 History of tobacco use Cigarette Smoker [facility] Start: 06-08-2023 Cigarettes smoked current (pack per day) - Reported 1 [facility] Start: 06-08-2023 Tobacco use and exposure User of smokeless tobacco [facility] Start: 06-08-2023 Alcohol intake Ex-drinker (finding) [facility] Start: 06-08-2023 Tobacco use panel [facility] Start: 06-08-2023 Tobacco Comment Using nicotine pouches 2mg [facility] Start: 1960 Sex Assigned At Not on file [facility] History and physical note 06-08-2023 Mariam Sharp MD - 06/08/2023 11:15 AM EST Note Date & Type Note Facility 06-08-2023 History and physical note [facility] Amie Ryan is a 62 y.o. female she was seen in consultation for evaluation of incidentally found descending thoracic JOAQUINA at the [facility]. Patient had incidentally [...] control is critical. Lynn Richardson MD 06/08/2023 [facility] History and physical note 06-08-2023 Mariam Sharp MD - 06/08/2023 11:15 AM EST Note Date & Type Note Facility 06-08-2023 History and physical note [facility] Amie Ryan is a 62 y.o. female she was seen in consultation for evaluation of incidentally found descending thoracic JOAQUINA at the [facility]. Patient had incidentally [...] Richardson MD 06/08/2023 documented in this encounter [facility] Instructions 06-08-2023 Patient Instructions Note Date [...] done outside the [facility] system, please call [phone] to inform us where you went so [...] your scheduled CTA please call radiology at [phone]. documented in this encounter [facility] Evaluation note Note Date & Type Note Facility documented in this encounter [facility] Evaluation note Note Date & Type Note Facility documented in this encounter [facility] Summary Purpose Family History No Family [...] (NON-CORON), COMBO, INCL IMG Lynn Mccain MD [facility] [place] [address] Referral ID Status Reason Start Date Expiration Date V isits Requested Visits Authorized [id number] New Request 06/08/2023 07/02/2024 1 1 Specialty Diagnoses / Procedures Referred By Contac t Referred To Contact Diagnoses Abdominal aortic aneurysm (AAA) without rupture, unspecified part Procedures CT ANEURYSM STUDY WITH AND WITHOUT CONTRAST CHEST/ABDOMEN/PELVIS ID CT ANGIO ABD&PLVIS CNTRST MTRL W/WO CNTRST IMGES ID CT ANGIO, CHEST (NON-CORON), COMBO, INCL IMG Lynn Mccain MD [address] [id number] Referral ID Status Reason Start Date Expiration Date Visits Re quested Visits Authorized [id number] Closed 06/01/2023 06/25/2024 1 1 Additional Source Comments INFORMATION SOURCE (unrecogn ized section and content) DATE CREATED AUTHOR AUTHOR'S ORGANIZ ATION 01/18/2020 [facility] DATE CREATED AUTHOR AUTHOR'S ORGANIZ ATION 05/04/2022 [facility] DATE CREATED AUTHOR AUTHOR'S ORGANIZ ATION 06/11/2023 [facility] <item><item><item> Privacy Markings (unrecogniz ed section and [...] unspecified portion of aorta Deborah Hall MD [facility] [address] [place] [address] Referral ID Status Reason Start Date Expiration Date V isits Requested Visits Authorized [id number] New Request 05/22/2023 06/15/2024 1 1 Specialty Diagnoses / Procedures Referred By Contac t Referred To Contact Diagnoses Abdominal aortic aneurysm (AAA) without rupture, unspecified part Procedures CT ANEURYSM STUDY WITH AND WITHOUT CONTRAST CHEST/ABDOMEN/PELVIS ID CT ANGIO ABD&PLVIS CNTRST MTRL W/WO CNTRST IMGES ID CT ANGIO, CHEST (NON-CORON), COMBO, INCL IMG PROC Lynn Richardson MD [address] [place] [address] Referral ID Status Reason Start Date Expiration Date Visits Re quested Visits Authorized [id number] Closed 06/01/2023 06/25/2024 1 1 Care Teams (unrecognized sec tion and content) Business Systems Administrator Relationship Specialty Start Date End Date Santos Rust MD [address] [place], [place] [address] PCP - General 06/07/23 FOR RECORDS PERTAINING [...] BE BASED ON THE PRIMARY CLINICAL RECORDS. [employer] provides no warranty or guarantee of the accuracy or completeness of information in this document.
[2023-07-27 00:04] LABS: Magnesium 2.5 mg/dL (1.6-2.6)
[2023-07-27 00:27] VITALS: BMI 21.6
[2023-07-27 00:39] VITALS: BP 109/74; BP 114/70; BP 123/81; PULSE 57; PULSE 69; PULSE 79
[2023-07-27 00:41] VITALS: BP 114/70; PULSE 57; RESP 14; TEMP 36.6; O2SAT 100
[2023-07-27] MEDS: 0.9% Saline Lock 10 ML Syringe IV (01:19)
[2023-07-27] MEDS: 0.9% Normal Saline (1000mL) 1,000 ML 100 ML IV (01:19)
[2023-07-27] MEDS: amLODIPine 10 MG Tablet PO (01:30)
[2023-07-27] MEDS: Clopidogrel Bisulfate 75 MG Tablet PO (01:30)
[2023-07-27] MEDS: Losartan Potassium 50 MG Tablet PO (01:30)
[2023-07-27 02:21] LABS: Absolute Lymphocyte Count 1.72 X10^3/uL (0.83-4.51); Absolute Neutrophil Count 1.6 X10^3/uL (2.0-7.7); Basophil# 0.02 X10^3/uL; Basophil% 0.5 % (0-1); Eosinophil# 0.09 X10^3/uL; Eosinophils% 2.4 % (0-5); Hematocrit 35.4 % (37-47); Hemoglobin 11.8 g/dL (12.0-15.0); Lymphocyte # 1.72 X10^3/ul (0.83-4.51); Lymphocyte % 45.3 % (19-41); Mean Corp Hgb Conc 33.3 g/dL (32-36); Mean Corpuscular Hgb 31.8 pg (27.0-32.0); Mean Corpuscular Volume 95.4 fL (81-99); Mean Platelet Vol. 8.7 fl (6.2-12.0); Monocyte# 0.39 X10^3/uL; Monocyte% 10.3 % (0-10); NRBC Flagged by Analyzer 0 % (0-5); Neutrophil # 1.57 X10^3/uL (2.7-7.7); Neutrophil % 41.2 % (47-70); Platelet Count 211 K/mm3 (150-450); RBC Distribution Width SD 42.3 fl (35.1-43.9); Red Blood Count 3.71 M/mm3 (4.2-5.4); White Blood Count 3.8 K/mm3 (4.4-11.0)
[2023-07-27 02:40] LABS: Troponin-I HS 12 pg/mL (3.0-54.0)
[2023-07-27 02:42] LABS: ALB/GLOB Ratio 1.3 RATIO (0.9-2.4); AST(SGOT) 27 U/L (15-37); Alanine Aminotransfer ALT/SGPT 29 U/L (13-56); Albumin, Serum 3.8 g/dL (3.2-5.0); Alkaline Phosphatase 114 U/L (45-117); Anion Gap 3 (5-15); BUN 19 mg/dL (7-18); BUN/Creat Ratio 21.2 RATIO (10-20); Calcium,Total 8.9 mg/dL (8.5-10.1); Chloride 111 mmol/L (98-107); Cholesterol 164 mg/dL (200); EST Glomerular Filtration Rate 68 mL/min (>60); Est Glom Filt Rate - Afr Amer 82 mL/min (>60); Glucose 113 mg/dL (74-106); High Density Lipoprotein 102 mg/dL; Potassium 3.4 mmol/L (3.5-5.1); Protein, Total 6.8 g/dL (6.4-8.2); Sodium Level 140 mmol/L (136-145); Triglycerides 76 mg/dL; Very Low Density Lipoprotein 15 mg/dL (5-40)
[2023-07-27 06:00] VITALS: BMI 21.9
[2023-07-27 06:40] VITALS: BP 128/72; PULSE 70; RESP 14; TEMP 36.6; O2SAT 99
[2023-07-27 09:05] LABS: Phosphorus 3.3 mg/dL (2.5-4.9)
--- NOTE | 2023-07-27 09:20 | PN.HOSP_ITS ---
Reason for Visit Reason for Visit: Diagnoses Syncope and collapse (07/26/23) Objective Data Objective Data Vital Signs: Vital Signs Temp Pulse Resp BP Pulse Ox O2 Del Method 98 F 70 14 128/72 H 99 Room Air 07/27/23 06:40 07/27/23 06:40 07/27/23 06:40 07/27/23 06:40 07/27/23 06:40 07/27/23 08:24 Oxygen Delivery Method Room Air Weight: 127 lb 6.835 oz Body Mass Index (BMI) 21.9 Lab / Micro Data 07/27/23 02:11 07/27/23 02:11 Labs: Laboratory Results - last 24 hr 07/26/23 19:58: WBC 4.5, RBC 3.86 L, Hgb 12.0, Hct 37.5, MCV 97.2, MCH 31.1, MCHC 32.0, RDW Std Deviation 42.8, RDW Coeff of Yulia 12.0, Plt Count 244, MPV 9.4, Immature Gran % (Auto) 0.200, Neut % (Auto) 50.6, Lymph % (Auto) 36.6, Fajardo % (Auto) 10.2 H, Eos % (Auto) 1.5, Baso % (Auto) 0.9, Absolute Neuts (auto) 2.3, Absolute Lymphs (auto) 1.66, Nucleated RBC % 0, Sodium 138, Potassium 3.8, Chloride 108 H, Carbon Dioxide 27.0, Anion Gap 3 L, BUN 22 H, Creatinine 0.94, Estim Creat Clear Calc 54.96, Est GFR (MDRD) Af Amer 78, Est GFR (MDRD) Non-Af 64, BUN/Creatinine Ratio 23.4 H, Glucose 105, Calcium 9.7, Troponin I High Sens 10, POC Glucose 79 07/26/23 23:10: Magnesium 2.5, Troponin I High Sens 12 07/27/23 02:11: WBC 3.8 L, RBC 3.71 L, Hgb 11.8 L, Hct 35.4 L, MCV 95.4, MCH 31.8, MCHC 33.3, RDW Std Deviation 42.3, RDW Coeff of Yulia 12.0, Plt Count 211, MPV 8.7, Immature Gran % (Auto) 0.300, Neut % (Auto) 41.2 L, Lymph % (Auto) 45.3 H, Fajardo % (Auto) 10.3 H, Eos % (Auto) 2.4, Baso % (Auto) 0.5, Absolute Neuts (auto) 1.6 L, Absolute Lymphs (auto) 1.72, Nucleated RBC % 0, Sodium 140, Potassium 3.4 L, Chloride 111 H, Carbon Dioxide 26.0, Anion Gap 3 L, BUN 19 H, Creatinine 0.90, Estim Creat Clear Calc 57.40, Est GFR (MDRD) Af Amer 82, Est GFR (MDRD) Non-Af 68, BUN/Creatinine Ratio 21.2 H, Glucose 113 H, Calcium 8.9, Phosphorus 3.3, Total Bilirubin 0.20, AST 27, ALT 29, Alkaline Phosphatase 114, Troponin I High Sens 12, Total Protein 6.8, Albumin 3.8, Globulin 3.0, Albumin/Globulin Ratio 1.3, Triglycerides 76, Cholesterol 164, LDL Cholesterol 4 7, VLDL Cholesterol 15, HDL Cholesterol 102 Radiography Diagnostic Testing: Radiology Impression Chest CTA 07/26/23 20:46 IMPRESSION: Abnormal descending thoracic aorta where there is a segment of approximately 6 cm length that appears to represent a large pseudoaneurysm with a very thin overlying wall. No current evidence of leak. COPD. Electronically Signed: Balaji Waller MD at 22:33 EST , Chest X-Ray 07/26/23 20:55 IMPRESSION: There are findings consistent with COPD. There is no evidence of acute chest disease. Electronically Signed: Balaji Waller MD at 21:50 EST , Assessment & Plan Assessment/Plan (1) Near syncope: PLAN: Plan The patient is a 62 y/o F Admitted for lightheadedness and near syncope that is started on the evening on the day of admission. No syncope or LOC. She had similar symptoms when she required cardiac stent in June. #1. Recurrent Lightheadedness, Near Syncopal Event: EKG in ED w/ sinus bradycardic rhythm without evidence of acute ischemia, CXR w/ no acute cardiopulmonary findings, CTPA without acute findings and stable pseudoaneurysm per report, initial trop normal. Will admit to PCU, place on a monitored bed to assure no acute myocardial infarction with serial cardiac enzymes and EKGs. Will maintain on fall precautions, obtain admission orthostatic to be cautious. If concerns arise including EKG changes, elevated troponin series low threshold to involve Cardiology service. 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 CT 04/30/23 Chase [place] with 5.1 cm long pseudoaneurysm of the mid descending aorta. Patient did have follow-up with vascular surgery Dr. Anderson and was eventually referred to tertiary facility. the patient was seen by vascular surgeon at [facility] and plan to follow-up in August. #3. CAD: 06/18/2023 cardiac catheterization noted to be right dominant, left main with mild luminal irregularities, left anterior descending artery with mild luminal irregularities, circumflex artery with mild luminal irregularities, right coronary artery with mid RCA 80% stenosis with MARIYA to the mid RCA, will continue aspirin, Plavix, losartan, not on beta-tabatha therapy given chronic bradycardia. #4. Valvular heart disease: Mild concentric LVH, LV normal size, systolic EF 55 to 60% with no regional wall motion abnormality, mild MV regurgitation, moderate TV regurgitation, mild to moderate AV regurgitation, trivial PV regurgitation. #5. Hypertension: Continue home regimen including losartan, amlodipine, PRN hydralazine. #6. Hyperlipidemia: Continue home statin regimen. #7. Anxiety: Per current list on a regimen, encourage continued outpatient follow-up as needed. #8. Restless leg syndrome: Patient uses per record cyclobenzaprine as needed. #9. Former tobacco use: Encourage continued tobacco cessation. #10. DVT Prophylaxis: Lovenox. #11. CODE status: Patient HCPOA and LW are not in place but her would be her decision maker if she was unable. Discussed CODE status at length including difference between FULL code, DNR-CCA and DNR-CC status. Following discussions about the differences in these status, requested Full Code status. Advanced Care Planning Face to Face Time: 16 minutes.
[2023-07-27 09:36] VITALS: BP 106/69; PULSE 61; RESP 18; TEMP 36.7; O2SAT 100
[2023-07-27] MEDS: Potassium Chloride Oral Tablet 20 MEQ 40 MEQ PO (09:37)
[2023-07-27] MEDS: Aspirin E.C. 81 MG Tablet PO (09:38)
[2023-07-27] MEDS: Enoxaparin 40 MG/0.4 ML Syringe SC (09:38)
--- NOTE | 2023-07-27 10:51 | DCINST_ITS ---
Discharge Instructions Diet Discharge Diet: 2000 mg Sodium Diet Activity Discharge Activity: Return to Normal Activity Weight Bearing Status: Weight bearing as tolerated Dressing / Incision Call your doctor if you observe: Fever of 101 or Higher, Coldness, Increased Pain, Numbness or Tingling, Change in Color, Inability to urinate, Inability to have a bowel movement, Shortness of breath, Dizziness, Fainting spells, Swelling in the ankles, Chest pain, Prolonged hiccupping, Increased palpitations (irregular heartbeat) and Calf discomfort Follow Up Care When: IN 2 WEEKS Test Results: Test results from this visit will be discussed in further detail at your follow- up appointment, if applicable. Discharge Plan Admission Admit Date/Time: 07/26/23 23:47 Primary Reason for Your Visit: Dizziness near syncope. Attending Provider: Erik Hylton Primary Care Provider: Renato Bonilla Chi Consulting Providers: Lubna Horton Instructions Additional Instructions / Restrictions: Follow-up in [facility] in August in regards to the thoracic descending aortic artery aneurysm Discharge Orders/Prescriptions Prescriptions: New potassium chloride 20 mEq Tablet,Er Particles/Crystals 40 meq PO DAILYCM 2 Days Qty: 4 0RF meclizine [Antivert] 25 mg tablet,chewable 25 mg PO Q6H PRN PRN (Reason: dizziness) Qty: 20 0RF Continued magnesium oxide 400 mg magnesium tablet 400 mg PO DAILY cyclobenzaprine 10 mg tablet 10 mg PO DAILY PRN (Reason: muscle spasm) vitamin B complex Tablet 1 tab PO DAILY atorvastatin 40 mg tablet 40 mg PO QHS Qty: 30 2RF losartan 50 mg tablet 50 mg PO DAILY amlodipine 10 mg tablet 10 mg PO DAILY Qty: 90 3RF cholecalciferol (vitamin D3) [Vitamin D3] 25 mcg (1,000 unit) tablet 25 mcg PO DAILY aspirin [Adult Aspirin Regimen] 81 mg tablet,delayed release (DR/EC) 81 mg PO DAILY clopidogrel 75 mg tablet 75 mg PO .COMPLEX Qty: 90 3RF Rx Instructions: 75 mg orally 4 tablets by mouth ALL at once for loading dose on Qoaaej86/14/24, then ONE tablet by mouth DAILY. Stop Brilinta Monday night 05/15. Referrals / Follow Up: Renato Bonilla Chi, MD [Primary Care Provider] - Within 2 Weeks Disposition Disposition (needs filled in before D/C Order can be placed): Home, Self Care
--- NOTE | 2023-07-27 11:25 | CASEMGMT ---
Patient has order for discharge. RN CM in to discuss needs at discharge. Patient denies needs or help at discharge. Patient had no further questions or concerns.
--- NOTE | 2023-07-27 13:13 | PCM.DC.SUM ---
Providers Date of Admission: 07/26/23 Date of Discharge: 07/27/23 Primary Care Physician: Dr. Renato Bonilla MD Reason For Visit: NEAR SYNCOPE Diagnosis Discharge Diagnosis (1) Near syncope: Status: Acute Code(s): R55 - Syncope and collapse Plan The patient is a 62 y/o F Admitted for lightheadedness and near syncope that is started on the evening on the day of admission. No syncope or LOC. She had similar symptoms when she required cardiac stent in June. #1. Recurrent Lightheadedness, Near Syncopal Event: EKG in ED w/ sinus bradycardic rhythm without evidence of acute ischemia, CXR w/ no acute cardiopulmonary findings, CTPA without acute findings and stable pseudoaneurysm per report, 3 serial troponins negative therefore ACS ruled out. Patient orthostatic blood pressure was negative. Patient orthostatic blood pressure on supine 114/70 went up 123/81 on standing up. Her heart rate went up from 57 supine to -79 on standing. Patient does not have symptoms of dizziness or vertigo. Laboratory Results 07/26/23 19:58: WBC 4.5, RBC 3.86 L, Hgb 12.0, Hct 37.5, MCV 97.2, MCH 31.1, MCHC 32.0, RDW Std Deviation 42.8, RDW Coeff of Yulia 12.0, Plt Count 244, MPV 9.4, Immature Gran % (Auto) 0.200, Neut % (Auto) 50.6, Lymph % (Auto) 36.6, [place] % (Auto) 10.2 H, Eos % (Auto) 1.5, Baso % (Auto) 0.9, Absolute Neuts (auto) 2.3, Absolute Lymphs (auto) 1.66, Nucleated RBC % 0, Sodium 138, Potassium 3.8, Chloride 108 H, Carbon Dioxide 27.0, Anion Gap 3 L, BUN 22 H, Creatinine 0.94, Estim Creat Clear Calc 54.96, Est GFR (MDRD) Af Amer 78, Est GFR (MDRD) Non-Af 64, BUN/Creatinine Ratio 23.4 H, Glucose 105, Calcium 9.7, Troponin I High Sens 10, POC Glucose 79 07/26/23 23:10: Magnesium 2.5, Troponin I High Sens 12 07/27/23 02:11: WBC 3.8 L, RBC 3.71 L, Hgb 11.8 L, Hct 35.4 L, MCV 95.4, MCH 31.8, MCHC 33.3, RDW Std Deviation 42.3, RDW Coeff of Yulia 12.0, Plt Count 211, MPV 8.7, Immature Gran % (Auto) 0.300, Neut % (Auto) 41.2 L, Lymph % (Auto) 45.3 H, [place] % (Auto) 10.3 H, Eos % (Auto) 2.4, Baso % (Auto) 0.5, Absolute Neuts (auto) 1.6 L, Absolute Lymphs (auto) 1.72, Nucleated RBC % 0, Sodium 140, Potassium 3.4 L, Chloride 111 H, Carbon Dioxide 26.0, Anion Gap 3 L, BUN 19 H, Creatinine 0.90, Estim Creat Clear Calc 57.40, Est GFR (MDRD) Af Amer 82, Est GFR (MDRD) Non-Af 68, BUN/Creatinine Ratio 21.2 H, Glucose 113 H, Calcium 8.9, Phosphorus 3.3, Total Bilirubin 0.20, AST 27, ALT 29, Alkaline Phosphatase 114, Troponin I High Sens 12, Total Protein 6.8, Albumin 3.8, Globulin 3.0, Albumin/Globulin Ratio 1.3, Triglycerides 76, Cholesterol 164, LDL Cholesterol 47, VLDL Cholesterol 15, HDL Cholesterol 102 Clinical Impression(s) from Imaging Studies Chest CTA 07/26/23 20:46 IMPRESSION: Abnormal descending thoracic aorta where there is a segment of approximately 6 cm length that appears to represent a large pseudoaneurysm with a very thin overlying wall. No current evidence of leak. COPD. Chest X-Ray 07/26/23 20:55 IMPRESSION: There are findings consistent with COPD. There is no evidence of acute chest disease. 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 She prefers surgical treatment. CTPA showed abnormal segment of 6 cm and descending thoracic aorta possible presenting large pseudoaneurysm with thin overlying the wall. No current evidence of leak. CT 04/30/23 Chase Dougherty with 5.1 cm long pseudoaneurysm of the mid descending aorta. Patient did have follow-up with vascular surgery Dr. Anderson and was eventually referred to tertiary facility. the patient was seen by vascular surgeon at [facility] and plan to follow-up in August. #3. CAD: 06/18/2023 cardiac catheterization noted to be right dominant, left main with mild luminal irregularities, left anterior descending artery with mild luminal irregularities, circumflex artery with mild luminal irregularities, right coronary artery with mid RCA 80% stenosis with MARIYA to the mid RCA, will continue aspirin, Plavix, losartan, not on beta-tabatha therapy given chronic bradycardia. #4. Valvular heart disease: Mild concentric LVH, LV normal size, systolic EF 55 to 60% with no regional wall motion abnormality, mild MV regurgitation, moderate TV regurgitation, mild to moderate AV regurgitation, trivial PV regurgitation. #5. Hypertension: Continue home regimen including losartan, amlodipine, PRN hydralazine. #6. Hyperlipidemia: Continue home statin regimen. #7. Anxiety: Per current list on a regimen, encourage continued outpatient follow-up as needed. #8. Restless leg syndrome: Patient uses per record cyclobenzaprine as needed. #9. Former tobacco use: Encourage continued tobacco cessation. #10. DVT Prophylaxis: Lovenox. #11. CODE status: Patient HCPOA and LW are not in place but her would be her decision maker if she was unable. Discussed CODE status at length including difference between FULL code, DNR-CCA and DNR-CC status. Following discussions about the differences in these status, requested Full Code status. Advanced Care Planning Face to Face Time: 16 minutes. Discharge medication reconciliation done. Discharge follow-up instructions completed. Discharge process discussed with the patient and all questions were answered to patient's satisfaction. Follow with PCP in 1 to 2 weeks Total time spent, exact 35 minutes on discharge meds reconciliation, examination, coordination of care with nurses and ancillary staff, review of imaging and blood test and discussion with the patient on follow-up instructions. Medications at Discharge Home Medications magnesium oxide 400 mg PO DAILY 11/12/21 cyclobenzaprine 10 mg tablet 10 mg PO DAILY PRN muscle spasm 05/11/23 atorvastatin 40 mg tablet 40 mg PO QHS #30 tabs 05/17/23 vitamin B complex 1 tab PO DAILY 05/17/23 cholecalciferol (vitamin D3) 25 mcg (1,000 unit) tablet (Vitamin D3) 25 mcg PO DAILY 05/31/23 aspirin 81 mg tablet,delayed release (Adult Aspirin Regimen) 81 mg PO DAILY 06/12/23 clopidogrel 75 mg tablet 75 mg PO .COMPLEX #90 tabs 07/14/23 amlodipine 10 mg tablet 10 mg PO DAILY #90 tabs 07/17/23 losartan 50 mg tablet 50 mg PO DAILY 07/17/23 meclizine 25 mg chewable tablet (Antivert) 25 mg PO Q6H PRN PRN dizziness #20 tabs 07/27/23 potassium chloride 20 mEq tablet,extended release(part/cryst) 40 meq (2 x 20 mEq) PO DAILYCM 2 days #4 tabs 07/27/23 Physical Exam Narrative Seen and examined. Patient not feeling dizzy or lightheaded. Denies syncope or LOC. Denies vertigo. Denies headache. Physical exam General: Alert, Oriented x3, Cooperative HEENT: Atraumatic, PERRLA, EOMI, Normocephalic Oral: No Gingival or Mucosal Lesions/ Ulcerations Neck: Supple, No JVD, Negative Carotid Bruits Chest wall/Lungs: Air entry diminished in bilateral lung bases. No crepitation/rhonchi Cardiovascular: Regular rate, Regular Rhythm, Normal S1, Normal S2, pansystolic murmur over cardiac apex. Abdomen: Bowel Sounds Present, Soft, Non Tender, Non-Distended : No renal angle tenderness. No suprapubic tenderness. Extremities: No edema, Capillary Refill Less than 3 Seconds Skin: No rashes, No breakdown Musculoskeletal: No Tenderness to Palpation of Joints or Extremities Neurological: Cranial nerves II-XII grossly intact, DTR 2+/4. No acute focal neurological deficit. Psych/Mental Status: Normal Affect, Appropriate. Weight / BMI Weight Weight: 127 lb 6.835 oz Body Mass Index (BMI) 21.9 ABG / Lab / Microbiology Data 07/27/23 02:11 07/27/23 02:11 Laboratory: Laboratory Results - last 24 hr 07/26/23 19:58: WBC 4.5, RBC 3.86 L, Hgb 12.0, Hct 37.5, MCV 97.2, MCH 31.1, MCHC 32.0, RDW Std Deviation 42.8, RDW Coeff of Yulia 12.0, Plt Count 244, MPV 9.4, Immature Gran % (Auto) 0.200, Neut % (Auto) 50.6, Lymph % (Auto) 36.6, [place] % (Auto) 10.2 H, Eos % (Auto) 1.5, Baso % (Auto) 0.9, Absolute Neuts (auto) 2.3, Absolute Lymphs (auto) 1.66, Nucleated RBC % 0, Sodium 138, Potassium 3.8, Chloride 108 H, Carbon Dioxide 27.0, Anion Gap 3 L, BUN 22 H, Creatinine 0.94, Estim Creat Clear Calc 54.96, Est GFR (MDRD) Af Amer 78, Est GFR (MDRD) Non-Af 64, BUN/Creatinine Ratio 23.4 H, Glucose 105, Calcium 9.7, Troponin I High Sens 10, POC Glucose 79 07/26/23 23:10: Magnesium 2.5, Troponin I High Sens 12 07/27/23 02:11: WBC 3.8 L, RBC 3.71 L, Hgb 11.8 L, Hct 35.4 L, MCV 95.4, MCH 31.8, MCHC 33.3, RDW Std Deviation 42.3, RDW Coeff of Yulia 12.0, Plt Count 211, MPV 8.7, Immature Gran % (Auto) 0.300, Neut % (Auto) 41.2 L, Lymph % (Auto) 45.3 H, [place] % (Auto) 10.3 H, Eos % (Auto) 2.4, Baso % (Auto) 0.5, Absolute Neuts (auto) 1.6 L, Absolute Lymphs (auto) 1.72, Nucleated RBC % 0, Sodium 140, Potassium 3.4 L, Chloride 111 H, Carbon Dioxide 26.0, Anion Gap 3 L, BUN 19 H, Creatinine 0.90, Estim Creat Clear Calc 57.40, Est GFR (MDRD) Af Amer 82, Est GFR (MDRD) Non-Af 68, BUN/Creatinine Ratio 21.2 H, Glucose 113 H, Calcium 8.9, Phosphorus 3.3, Total Bilirubin 0.20, AST 27, ALT 29, Alkaline Phosphatase 114, Troponin I High Sens 12, Total Protein 6.8, Albumin 3.8, Globulin 3.0, Albumin/Globulin Ratio 1.3, Triglycerides 76, Cholesterol 164, LDL Cholesterol 47, VLDL Cholesterol 15, HDL Cholesterol 102 Radiography Diagnostic Testing: Radiology Impression Chest CTA 07/26/23 20:46 IMPRESSION: Abnormal descending thoracic aorta where there is a segment of approximately 6 cm length that appears to represent a large pseudoaneurysm with a very thin overlying wall. No current evidence of leak. COPD. Electronically Signed: Balaji Waller MD at 22:33 EST , Chest X-Ray 07/26/23 20:55 IMPRESSION: There are findings consistent with COPD. There is no evidence of acute chest disease. Electronically Signed: Balaji Waller MD at 21:50 EST , D/C Instructions Discharge Diet: 2000 mg Sodium Diet Weight Bearing Status: Weight bearing as tolerated Call your doctor if you observe: Fever of 101 or Higher, Coldness, Increased Pain, Numbness or Tingling, Change in Color, Inability to urinate, Inability to have a bowel movement, Shortness of breath, Dizziness, Fainting spells, Swelling in the ankles, Chest pain, Prolonged hiccupping, Increased palpitations (irregular heartbeat) and Calf discomfort When: IN 2 WEEKS Meaningful Use Info Meaningful Use Diagnoses (Choose all that apply): None applicable Discharge Plan Admission Admit Date/Time: 07/26/23 23:47 Primary Reason for Your Visit: Dizziness near syncope. Attending Provider: Erik Hylton Primary Care Provider: Renato Bonilla Chi Consulting Providers: Lubna Horton Instructions Additional Instructions / Restrictions: Follow-up in [facility] in August in regards to the thoracic descending aortic artery aneurysm Discharge Orders/Prescriptions Prescriptions: New potassium chloride 20 mEq Tablet,Er Particles/Crystals 40 meq PO DAILYCM 2 Days Qty: 4 0RF meclizine [Antivert] 25 mg tablet,chewable 25 mg PO Q6H PRN PRN (Reason: dizziness) Qty: 20 0RF Continued magnesium oxide 400 mg magnesium tablet 400 mg PO DAILY cyclobenzaprine 10 mg tablet 10 mg PO DAILY PRN (Reason: muscle spasm) vitamin B complex Tablet 1 tab PO DAILY atorvastatin 40 mg tablet 40 mg PO QHS Qty: 30 2RF losartan 50 mg tablet 50 mg PO DAILY amlodipine 10 mg tablet 10 mg PO DAILY Qty: 90 3RF cholecalciferol (vitamin D3) [Vitamin D3] 25 mcg (1,000 unit) tablet 25 mcg PO DAILY aspirin [Adult Aspirin Regimen] 81 mg tablet,delayed release (DR/EC) 81 mg PO DAILY clopidogrel 75 mg tablet 75 mg PO .COMPLEX Qty: 90 3RF Rx Instructions: 75 mg orally 4 tablets by mouth ALL at once for loading dose on Isikty61/14/24, then ONE tablet by mouth DAILY. Stop Brilinta Monday night 05/15. Referrals / Follow Up: Renato Bonilla Chi, MD [Primary Care Provider] - Within 2 Weeks Disposition Disposition (needs filled in before D/C Order can be placed): Home, Self Care Charges/Coding Visit Charges Inpatient E&M: 22430 Disch Hosp >30min
[2023-07-27 13:20] VITALS: BP 114/69; PULSE 63; RESP 18; TEMP 36.7; O2SAT 99
== END 2023-07-27 13:37 | disposition home or self-care (01) ==
LOC: ED 23:15 → PCU 23:51
PROVIDERS: Admitting Provider Family Medicine; Emergency Provider Emergency Medicine; PCP Family Medicine Geriatric Medicine; Referring Provider Emergency Medicine; Visit Provider Internal Medicine
DX: R55 Syncope and collapse (principal); I71.23 Aneurysm of the descending thoracic aorta, without rupture; G25.81 Restless legs syndrome; I10 Essential (primary) hypertension; Z95.5 Presence of coronary angioplasty implant and graft; Z79.82 Long term (current) use of aspirin; F41.9 Anxiety disorder, unspecified; Z87.891 Personal history of nicotine dependence; E78.5 Hyperlipidemia, unspecified; Z79.02 Long term (current) use of antithrombotics/antiplatelets; R42 Dizziness and giddiness; Z79.899 Other long term (current) drug therapy; I25.10 Atherosclerotic heart disease of native coronary artery without angina pectoris
CPT/HCPCS: 36415; 71045; 71275; 80048; 80053; 80061; 82962; 83735; 84100; 84484; 85025; 93005; 96360; 96361; 96372; 99221; 99285; J7030; Q9967; A4216; G0378

== ENCOUNTER → 2023-08-01 | Outpatient (CLI) | payer OTHER, SELFPAY ==
--- OUTSIDE RECORDS SUMMARY | 2023-08-01 17:38 | XMS RPT_ITS | CCD ---
Author Name Unknown Address [address] [place] [address] Organization [facility] Care Team Providers Care Card Player Name Role Phone LEELA BONE Admitting Unavailable [...] Robbi Rust MD, Santos Primary Care Provider SANTOS RUST Primary Care Unavailable LYNN RICHARDSON [...] 162.6 cm Lynn Richardson MD Work Phone: [phone] [place] [address] 06-08-2023 11:05-0500 Body mass index (BMI) [Ratio] 20.94 kg/m2 Lynn Richardson MD Work Phone: [phone])[phone] [place] [address] 06-08-2023 11:05-0500 Body weight 55.34 kg Lynn Richardson MD Work Phone: [phone])[phone] [place] [address] 06-08-2023 11:05-0500 Diastolic blood pressure 71 mm[Hg] Lynn Richardson MD Work Phone: [phone])[phone] [place] [address] 06-08-2023 11:05-0500 Heart rate 73 /min Lynn Richardson MD Work Phone: [phone] [place] [address] 06-08-2023 11:05-0500 Systolic blood pressure 131 mm[Hg] Lynn Richardson MD Work Phone: [phone])[phone] [place] [address] 06-08-2023 09:29-0500 Body height 162.6 cm Lynn Richardson MD Work Phone: [phone])[phone] [place] [address] 06-08-2023 09:29-0500 Body mass index (BMI) [Ratio] 20.94 kg/m2 Lynn Richardson MD Work Phone: [phone])[phone] [place] [address] 06-08-2023 09:29-0500 Body weight 55.34 kg Lynn Richardson MD Work Phone: [phone] [place] [address] 06-08-2023 09:29-0500 Diastolic blood pressure 82 mm[Hg] Lynn Richardson MD Work Phone: [phone] [place] [address] 06-08-2023 09:29-0500 Heart rate 80 /min Lynn Richardson MD Work Phone: [facility] 06-08-2023 09:29-0500 Systolic blood pressure 144 mm[Hg] Lynn Richardson MD Work Phone: [facility] 04-25-2022 13:19-0400 Body height 162 cm Danisha-Chi Chad Other Phone: [facility] 04-25-2022 13:19-0400 Body temperature 97.7 [degF] Danisha-Chi Chad Other Phone: [facility] 04-25-2022 13:19-0400 Diastolic blood pressure 89 mm[Hg] Danisha-Chi Chad Other Phone: [facility] 04-25-2022 13:19-0400 Heart rate 75 /min Danisha-Chi Chad Other Phone: [facility] 04-25-2022 13:19-0400 Respiratory rate 14 /min Danisha-Chi Chad Other Phone: [facility] 04-25-2022 13:19-0400 SaO2% (BldA) [Mass fraction] 99 % Danisha-Chi Chad Other Phone: [facility] 04-25-2022 13:19-0400 Systolic blood pressure 143 mm[Hg] Danisha-Chi Chad Other Phone: [facility] 08-27-2021 12:55-0500 Body height 162.5 cm Text Entry Free [facility] 08-27-2021 12:55-0500 Body temperature 98.06 [degF] Text Entry [facility] 08-27-2021 12:55-0500 Diastolic blood pressure 89 mm[Hg] Text Entry [facility] 08-27-2021 12:55-0500 Heart rate 68 /min Text Entry [facility] 08-27-2021 12:55-0500 Respiratory rate 16 /min Text Entry [facility] 08-27-2021 12:55-0500 SaO2% (BldA) [Mass fraction] 100 % Text Entry [facility] 08-27-2021 12:55-0500 Systolic blood pressure 163 mm[Hg] Text Entry [facility] 06-19-2021 11:51-0500 Body height 162.5 cm Text Entry [facility] 06-19-2021 11:51-0500 Body temperature 97.7 [degF] Text Entry [facility] 06-19-2021 11:51-0500 Diastolic blood pressure 98 mm[Hg] Text Entry [facility] 06-19-2021 11:51-0500 Heart rate 75 /min Text Entry [facility] 06-19-2021 11:51-0500 Respiratory rate 16 /min Text Entry [facility] 06-19-2021 11:51-0500 SaO2% (BldA) [Mass fraction] 100 % Text Entry [facility] 06-19-2021 11:51-0500 Systolic blood pressure 173 mm[Hg] Text Entry [facility] Encounters Encounter Date Encounter Type Care [...] of aorta Expected: 09/07/2023 (Approximate), Expires: 06/08/2024 [facility] Work Phone: Payers Date Payer Category Payer Private Health Insurance [employer] [id number] 2023-Present [phone] [address] [place] [address] [id number] 2023 Private Health Insurance [id number] 1960 Unknown [id number] 1960 Unknown [id number] 1962 Unknown [id number] 9 1960 Unknown [id number] 9 1960 Unknown [id number] 1960 Unknown [id number] 1960 Unknown [id number] Unknown [id number] Unknown Unknown Social History Date Type Detail Facility [facility] Tobacco smoking consumption unknown [facility] Start: 06-08-2023 [facility] [place] Ex[facility]sm[facility] End: 10-05-2021 History of tobacco use Current smoker [facility] End: 10-05-2021 History of tobacco use Cigarette Smoker [facility] Start: 06-08-2023 Cigarettes smoked current (pack per day) - Reported 1 [facility] Start: 06-08-2023 Tobacco use and exposure User of smokeless tobacco [facility] Start: 06-08-2023 Alcohol intake Ex-drinker (finding) [facility] Start: 06-08-2023 Tobacco use panel [facility] Start: 06-08-2023 Tobacco Comment Using nicotine pouches 2mg [facility] Start: 1960 Sex Assigned At Not on file [facility] History and physical note 06-08-2023 Mariam Sharp MD - 06/08/2023 11:15 AM EST Note Date & Type Note Facility 06-08-2023 History and physical note [facility] Amie Ryan is a 62 y.o. female she was seen in consultation for evaluation of incidentally found descending thoracic JOAQUINA at the [facility]. Patient had [...] control is critical. Lynn Richardson MD 06/08/2023 [facility] History and physical note 06-08-2023 Mariam Sharp MD - 06/08/2023 11:15 AM EST Note Date & Type Note Facility 06-08-2023 History and physical note [facility] Amie Ryan is a 62 y.o. female she was seen in consultation for evaluation of incidentally found descending thoracic JOAQUINA at the [facility]. Patient had [...] Richardson MD 06/08/2023 documented in this encounter [facility] Instructions 06-08-2023 Patient Instructions Note Date & [...] done outside the [facility] system, please call [phone] to inform us where you went so [...] your scheduled CTA please call radiology at [phone]. documented in this encounter [facility] Evaluation note Note Date & Type Note Facility documented in this encounter [facility] Evaluation note Note Date & Type Note Facility documented in this encounter [facility] Summary Purpose Family History No Family History [...] ANEURYSM STUDY WITH AND WITHOUT CONTRAST CHEST/ABDOMEN/PELVIS ME CT ANGIO ABD&PLVIS CNTRST MTRL W/WO CNTRST IMGES ME CT ANGIO, CHEST (NON-CORON), COMBO, INCL IMG Lynn Mccain MD [facility] [place] [address] Referral ID Status Reason Start Date Expiration Date V isits Requested Visits Authorized [id number] New Request 06/08/2023 07/02/2024 1 1 Specialty Diagnoses / Procedures Referred By Contac t Referred To Contact Diagnoses Abdominal aortic aneurysm (AAA) without rupture, unspecified part Procedures CT ANEURYSM STUDY WITH AND WITHOUT CONTRAST CHEST/ABDOMEN/PELVIS ME CT ANGIO ABD&PLVIS CNTRST MTRL W/WO CNTRST IMGES ME CT ANGIO, CHEST (NON-CORON), COMBO, INCL IMG Lynn Mccain MD [address] [id number] Referral ID Status Reason Start Date Expiration Date Visits Re quested Visits Authorized [id number] Closed 06/01/2023 06/25/2024 1 1 Additional Source Comments INFORMATION SOURCE (unrecogn ized section and content) DATE CREATED AUTHOR AUTHOR'S ORGANIZ ATION 01/18/2020 [facility] DATE CREATED AUTHOR AUTHOR'S ORGANIZ ATION 05/04/2022 [facility] DATE CREATED AUTHOR AUTHOR'S ORGANIZ ATION 06/11/2023 [facility] <item><item><item> Privacy Markings (unrecogniz ed section and [...] unspecified portion of aorta Deborah Hall MD [facility] [address] [place] [address] Referral ID Status Reason Start Date Expiration Date V isits Requested Visits Authorized [id number] New Request 05/22/2023 06/15/2024 1 1 Specialty Diagnoses / Procedures Referred By Contac t Referred To Contact Diagnoses Abdominal aortic aneurysm (AAA) without rupture, unspecified part Procedures CT ANEURYSM STUDY WITH AND WITHOUT CONTRAST CHEST/ABDOMEN/PELVIS ME CT ANGIO ABD&PLVIS CNTRST MTRL W/WO CNTRST IMGES ME CT ANGIO, CHEST (NON-CORON), COMBO, INCL IMG PROC Lynn Richardson MD [address] [place] [address] Referral ID Status Reason Start Date Expiration Date Visits Re quested Visits Authorized [id number] Closed 06/01/2023 06/25/2024 1 1 Care Teams (unrecognized sec tion and content) Card Player Relationship Specialty Start Date End Date Santos Rust MD [address] [facility] [address] [place], [place] [address] PCP - General 06/07/23 FOR RECORDS PERTAINING [...] BE BASED ON THE PRIMARY CLINICAL RECORDS. [employer] provides no warranty or guarantee of the accuracy or completeness of information in this document.
[2023-08-01 18:20] LABS: Anion Gap 4 (5-15); BUN 22 mg/dL (7-18); BUN/Creat Ratio 23.8 RATIO (10-20); Calcium,Total 9.1 mg/dL (8.5-10.1); Chloride 106 mmol/L (98-107); Creatinine, Serum 0.92 mg/dL (0.55-1.02); EST Glomerular Filtration Rate 66 mL/min (>60); Est Glom Filt Rate - Afr Amer 79 mL/min (>60); Glucose 95 mg/dL (74-106); Sodium Level 136 mmol/L (136-145)
== END | disposition home or self-care (01) ==
PROVIDERS: PCP Family Medicine Geriatric Medicine; Visit Provider Family Medicine Geriatric Medicine
DX: I10 Essential (primary) hypertension (principal)
CPT/HCPCS: 36415; 80048

== ENCOUNTER → 2023-08-04 | Outpatient (CLI) | payer OTHER, SELFPAY ==
--- NOTE | 2023-08-04 14:02 | ART_ITS ---
Reason For Study: Disorder of arteries and arterioles Procedure A bilateral lower extremity continuous wave Doppler with analog waveform analysis and ankle brachial indexes. Left Segmental Pressures Left brachial= 105mmHg. Left posterior tibial artery = 138mmHg. Left dorsalis pedis artery = 115mmHg. Left digit = 84 mmHg. The left dorsalis pedis waveforms are triphasic. The left posterior tibial artery waveforms are triphasic. Right Segmental Pressures Right brachial= 111mmHg. Right posterior tibial artery = 129mmHg. Right dorsalis pedis artery = 115mmHg. Right digit = 90 mmHg. The right dorsalis pedis waveforms are triphasic. The right posterior tibial artery waveforms are triphasic. Indices The right ankle brachial index by the dorsalis pedis is 1.04. The right ankle brachial index by the posterior tibial artery is 1.16. The right digital-brachial index is 0.81. The left ankle brachial index by the dorsalis pedis is 1.04. The left ankle brachial index by the posterior tibial artery is 1.24. The left digital-brachial index is 0.76. VL/Ankle Brachial Index Interpretation Summary Triphasic Doppler waveforms are noted at ankle level bilaterally. Pulse-volume recordings appear satisfactory at ankle and digital levels bilaterally. Resting ankle-brachial in dices are normal bilaterally. Digital-brachial indices are normal bilaterally. There is no evidence of significant arterial occlusive disease in the lower ext remities bilaterally. Ordering Physician: Renato Bonilla Chi Referring Physician: Renato Bonilla Chi Performed By: Jessika Mills RVT
--- OUTSIDE RECORDS SUMMARY | 2023-08-04 17:20 | XMS RPT_ITS | CCD ---
Author Name Unknown Address [address] [place] [address] Organization [facility] Care Team Providers Care President And Ceo Name Role Phone LEELA BONE Admitting Unavailable [...] Robbi Rust MD, Santos Primary Care Provider [phone] SANTOS RUST Primary Care Unavailable LYNN RICHARDSON [...] 162.6 cm Lynn Richardson MD Work Phone: [phone])[phone] [place] [address] 06-08-2023 11:05-0500 Body mass index (BMI) [Ratio] 20.94 kg/m2 Lynn Richardson MD Work Phone: 1(017)578-085799 [place] [address] 06-08-2023 11:05-0500 Body weight 55.34 kg Lynn Richardson MD Work Phone: 7(077)003-082099 [place] [address] 06-08-2023 11:05-0500 Diastolic blood pressure 71 mm[Hg] Lynn Richardson MD Work Phone: 5(239)719-705099 [place] [address] 06-08-2023 11:05-0500 Heart rate 73 /min Lynn Richardson MD Work Phone: 5(003)150-667699 [place] [address] 06-08-2023 11:05-0500 Systolic blood pressure 131 mm[Hg] Lynn Richardson MD Work Phone: 9(691)642-048799 [place] [address] 06-08-2023 09:29-0500 Body height 162.6 cm Lynn Richardson MD Work Phone: 4(784)889-275599 [place] [address] 06-08-2023 09:29-0500 Body mass index (BMI) [Ratio] 20.94 kg/m2 Lynn Richardson MD Work Phone: 9(885)654-337699 [place] [address] 06-08-2023 09:29-0500 Body weight 55.34 kg Lynn Richardson MD Work Phone: 7(908)303-844099 [place] [address] 06-08-2023 09:29-0500 Diastolic blood pressure 82 mm[Hg] Lynn Richardson MD Work Phone: 3(234)538-089999 [place] [address] 06-08-2023 09:29-0500 Heart rate 80 /min Lynn Richardson MD Work Phone: [facility] 06-08-2023 09:29-0500 Systolic blood pressure 144 mm[Hg] Lynn Richardson MD Work Phone: [facility] 04-25-2022 13:19-0400 Body height 162 cm Danisha-Chi Chad Other Phone: [facility] 04-25-2022 13:19-0400 Body temperature 97.7 [degF] Danisha-Chi Chad Other Phone: [facility] 04-25-2022 13:19-0400 Diastolic blood pressure 89 mm[Hg] Danisha-Chi Chad Other Phone: [facility] 04-25-2022 13:19-0400 Heart rate 75 /min Danisha-Chi Chad Other Phone: [facility] 04-25-2022 13:19-0400 Respiratory rate 14 /min Danisha-Chi Chad Other Phone: [facility] 04-25-2022 13:19-0400 SaO2% (BldA) [Mass fraction] 99 % Danisha-Chi Chad Other Phone: [facility] 04-25-2022 13:19-0400 Systolic blood pressure 143 mm[Hg] Danisha-Chi Chad Other Phone: [facility] 08-27-2021 12:55-0500 Body height 162.5 cm Text Entry [facility] 08-27-2021 12:55-0500 Body temperature 98.06 [degF] Text Entry [facility] 08-27-2021 12:55-0500 Diastolic blood pressure 89 mm[Hg] Text Entry [facility] 08-27-2021 12:55-0500 Heart rate 68 /min Text Entry [facility] 08-27-2021 12:55-0500 Respiratory rate 16 /min Text Entry [facility] 08-27-2021 12:55-0500 SaO2% (BldA) [Mass fraction] 100 % Text Entry [facility] 08-27-2021 12:55-0500 Systolic blood pressure 163 mm[Hg] Text Entry [facility] 06-19-2021 11:51-0500 Body height 162.5 cm Text Entry [facility] 06-19-2021 11:51-0500 Body temperature 97.7 [degF] Text Entry [facility] 06-19-2021 11:51-0500 Diastolic blood pressure 98 mm[Hg] Text Entry [facility] 06-19-2021 11:51-0500 Heart rate 75 /min Text Entry [facility] 06-19-2021 11:51-0500 Respiratory rate 16 /min Text Entry [facility] 06-19-2021 11:51-0500 SaO2% (BldA) [Mass fraction] 100 % Text Entry [facility] 06-19-2021 11:51-0500 Systolic blood pressure 173 mm[Hg] Text Entry [facility] Encounters Encounter Date Encounter Type [...] of aorta Expected: 09/07/2023 (Approximate), Expires: 06/08/2024 [facility] Work Phone: Payers Date Payer Category Payer Private Health Insurance K[employer] [id number] 2023-Present [phone] [id number] [place] [address] [id number] 2023 Private Health Insurance [id number] 1960 Unknown [id number] 51 1960 Unknown [id number] 9 1962 Unknown [id number] 9 1962 Unknown [id number] 9 1962 Unknown [id number] 069 1960 Unknown [id number] 94 1960 Unknown [id number] 94 Unknown [id number] Unknown Unknown Social History Date Type Detail Facility [facility] Tobacco smoking consumption unknown [facility] Start: 06-08-2023 [facility] End: 10-05-2021 History of tobacco use Current smoker [facility] End: 10-05-2021 History of tobacco use Cigarette Smoker [facility] Start: 06-08-2023 Cigarettes smoked current (pack per day) - Reported 1 [facility] Start: 06-08-2023 Tobacco use and exposure User of smokeless tobacco [facility] Start: 06-08-2023 Alcohol intake Ex-drinker (finding) [facility] Start: 06-08-2023 Tobacco use panel [facility] Start: 06-08-2023 Tobacco Comment Using nicotine pouches 2mg [facility] Start: 1960 Sex Assigned At Not on file [facility] History and physical note 06-08-2023 [...] control is critical. Lynn Richardson MD 06/08/2023 [facility] History and physical [...] Richardson MD 06/08/2023 documented in this encounter [facility] Instructions 06-08-2023 Patient Instructions Note [...] done outside the [facility] system, please call [phone] to inform us where you went so [...] your scheduled CTA please call radiology at [phone]. documented in this encounter [facility] Evaluation note Note Date & Type Note Facility documented in this encounter [facility] Evaluation note Note Date & Type Note Facility documented in this encounter [facility] Summary Purpose Family History No Family [...] ANEURYSM STUDY WITH AND WITHOUT CONTRAST CHEST/ABDOMEN/PELVIS W[place] CT ANGIO ABD&PLVIS CNTRST MTRL W/WO CNTRST IMGES [place] CT ANGIO, CHEST (NON-CORON), COMBO, INCL IMG Lynn Mccain MD [facility] [place] [address] Referral ID Status Reason Start Date Expiration Date V isits Requested Visits Authorized [id number] New Request 06/08/2023 07/02/2024 1 1 Specialty Diagnoses / Procedures Referred By Contac t Referred To Contact Diagnoses Abdominal aortic aneurysm (AAA) without rupture, unspecified part Procedures CT ANEURYSM STUDY WITH AND WITHOUT CONTRAST CHEST/ABDOMEN/PELVIS W[place] CT ANGIO ABD&PLVIS CNTRST MTRL W/WO CNTRST IMGES [place] CT ANGIO, CHEST (NON-CORON), COMBO, INCL IMG Lynn Mccain MD [address] [id number] Referral ID Status Reason Start Date Expiration Date Visits Re quested Visits Authorized [id number] Closed 06/01/2023 06/25/2024 1 1 Additional Source Comments INFORMATION SOURCE (unrecogn ized section and content) DATE CREATED AUTHOR AUTHOR'S ORGANIZ ATION 01/18/2020 [facility] DATE CREATED AUTHOR AUTHOR'S ORGANIZ ATION 05/04/2022 [facility] DATE CREATED AUTHOR AUTHOR'S ORGANIZ ATION 06/11/2023 [facility] <item><item><item> Privacy Markings (unrecogniz ed section and [...] unspecified portion of aorta Deborah Hall MD [facility] [address] [place] [address] Referral ID Status Reason Start Date Expiration Date V isits Requested Visits Authorized [id number] New Request 05/22/2023 06/15/2024 1 1 Specialty Diagnoses / Procedures Referred By Contac t Referred To Contact Diagnoses Abdominal aortic aneurysm (AAA) without rupture, unspecified part Procedures CT ANEURYSM STUDY WITH AND WITHOUT CONTRAST CHEST/ABDOMEN/PELVIS W[place] CT ANGIO ABD&PLVIS CNTRST MTRL W/WO CNTRST IMGES [place] CT ANGIO, CHEST (NON-CORON), COMBO, INCL IMG PROC Lynn Richardson MD [address] [place] [address] Referral ID Status Reason Start Date Expiration Date Visits Re quested Visits Authorized [id number] Closed 06/01/2023 06/25/2024 1 1 Care Teams (unrecognized sec tion and content) President And Ceo Relationship Specialty Start Date End Date Santos Rust MD [address] [facility] [address] [place], [place] [address] PCP - General 06/07/23 FOR RECORDS PERTAINING [...] BE BASED ON THE PRIMARY CLINICAL RECORDS. [employer] provides no warranty or guarantee of the accuracy or completeness of information in this document.
== END | disposition home or self-care (01) ==
LOC: CVS 14:00
PROVIDERS: PCP Family Medicine Geriatric Medicine; Referring Provider Family Medicine Geriatric Medicine; Visit Provider Family Medicine Geriatric Medicine
DX: I77.9 Disorder of arteries and arterioles, unspecified (principal)
CPT/HCPCS: 93922

== ENCOUNTER → 2023-08-18 | Outpatient (CLI) | payer OTHER, SELFPAY ==
--- OUTSIDE RECORDS SUMMARY | 2023-08-18 09:16 | XMS RPT_ITS | CCD ---
Author Name Unknown Address [address] [place] [address] Organization [facility] Care Team Providers Care Motor Runner Name Role Phone LEELA BONE Admitting Unavailable [...] Robbi Rust MD, Santos Primary Care Provider [phone] SANTOS RUST Primary Care Unavailable LYNN RICHARDSON [...] 162.6 cm Lynn Richardson MD Work Phone: [phone])[phone] [place] [address] 06-08-2023 11:05-0500 Body mass index (BMI) [Ratio] 20.94 kg/m2 Lynn Richardson MD Work Phone: [phone])314-126939 [place] [address] 06-08-2023 11:05-0500 Body weight 55.34 kg Lynn Richardson MD Work Phone: [phone])930-002539 [place] [address] 06-08-2023 11:05-0500 Diastolic blood pressure 71 mm[Hg] Lynn Richardson MD Work Phone: 4(304)620-623139 [place] [address] 06-08-2023 11:05-0500 Heart rate 73 /min Lynn Richardson MD Work Phone: 3(214)361-900139 [place] [address] 06-08-2023 11:05-0500 Systolic blood pressure 131 mm[Hg] Lynn Richardson MD Work Phone: 4(082)164-754539 [place] [address] 06-08-2023 09:29-0500 Body height 162.6 cm Lynn Richardson MD Work Phone: 9(586)608-210639 [place] [address] 06-08-2023 09:29-0500 Body mass index (BMI) [Ratio] 20.94 kg/m2 Lynn Richardson MD Work Phone: 0(595)234-259039 [place] [address] 06-08-2023 09:29-0500 Body weight 55.34 kg Lynn Richardson MD Work Phone: [phone])937-360039 [place] [address] 06-08-2023 09:29-0500 Diastolic blood pressure 82 mm[Hg] Lynn Richardson MD Work Phone: 6(127)669-566939 [place] [address] 06-08-2023 09:29-0500 Heart rate 80 /min Lynn Richardson MD Work Phone: [facility] 06-08-2023 09:29-0500 Systolic blood pressure 144 mm[Hg] Lynn Richardson MD Work Phone: [facility] 04-25-2022 13:19-0400 Body height 162 cm Danisha-Chi Chad Other Phone: [facility] 04-25-2022 13:19-0400 Body temperature 97.7 [degF] Danisha-Chi Chad Other Phone: [facility] 04-25-2022 13:19-0400 Diastolic blood pressure 89 mm[Hg] Danisha-Chi Chad Other Phone: [facility] 04-25-2022 13:19-0400 Heart rate 75 /min Danisha-Chi Chad Other Phone: [facility] 04-25-2022 13:19-0400 Respiratory rate 14 /min Danisha-Chi Chad Other Phone: [facility] 04-25-2022 13:19-0400 SaO2% (BldA) [Mass fraction] 99 % Danisha-Chi Chad Other Phone: [facility] 04-25-2022 13:19-0400 Systolic blood pressure 143 mm[Hg] Danisha-Chi Chad Other Phone: [facility] 08-27-2021 12:55-0500 Body height 162.5 cm Text Entry Free [facility] 08-27-2021 12:55-0500 Body temperature 98.06 [degF] Text Entry Free [facility] 08-27-2021 12:55-0500 Diastolic blood pressure 89 mm[Hg] Text Entry [facility] 08-27-2021 12:55-0500 Heart rate 68 /min Text Entry [facility] 08-27-2021 12:55-0500 Respiratory rate 16 /min Text Entry [facility] 08-27-2021 12:55-0500 SaO2% (BldA) [Mass fraction] 100 % Text Entry Free [facility] 08-27-2021 12:55-0500 Systolic blood pressure 163 mm[Hg] Text Entry Free [facility] 06-19-2021 11:51-0500 Body height 162.5 cm Text Entry [facility] 06-19-2021 11:51-0500 Body temperature 97.7 [degF] Text Entry [facility] 06-19-2021 11:51-0500 Diastolic blood pressure 98 mm[Hg] Text Entry Free [facility] 06-19-2021 11:51-0500 Heart rate 75 /min Text Entry [facility] 06-19-2021 11:51-0500 Respiratory rate 16 /min Text Entry Free [facility] 06-19-2021 11:51-0500 SaO2% (BldA) [Mass fraction] 100 % Text Entry Free [facility] 06-19-2021 11:51-0500 Systolic blood pressure 173 mm[Hg] Text Entry Free [facility] Encounters Encounter Date Encounter Type Care Provider Facility Start: 06-08-2023 End: 06-08-2023 Office outpatient new 45 minutes Lynn Richardson MD Work Phone: [facility] [place] Procedures Date Procedure Procedure Detail Performing Clinician [...] of aorta Expected: 09/07/2023 (Approximate), Expires: 06/08/2024 [facility] Work Phone: Payers Date Payer Category Payer Private Health Insurance K[employer]CH[employer] [id number] 2023-Present [phone] [address] [facility] [place] [address] [id number] 2023 Private Health Insurance [id number] 1960 Unknown [id number] 51 1960 Unknown [id number] 9 1962 Unknown [id number] 9 1962 Unknown [id number] 9 1962 Unknown [id number] 069 1960 Unknown [id number] 94 1960 Unknown [id number] 94 Unknown [id number] Unknown Unknown Social History Date Type Detail Facility [facility] Tobacco smoking consumption unknown [facility] Start: 06-08-2023 [facility] End: 10-05-2021 History of tobacco use Current smoker [facility] End: 10-05-2021 History of tobacco use Cigarette Smoker [facility] Start: 06-08-2023 Cigarettes smoked current (pack per day) - Reported 1 [facility] Start: 06-08-2023 Tobacco use and exposure User of smokeless tobacco [facility] Start: 06-08-2023 Alcohol intake Ex-drinker (finding) [facility] Start: 06-08-2023 Tobacco use panel [facility] Start: 06-08-2023 Tobacco Comment Using nicotine pouches 2mg [facility] Start: 1960 Sex Assigned At Not on file O [facility] History and physical note 06-08-2023 Mariam Sharp MD - 06/08/2023 11:15 AM EST Note Date & Type Note Facility 06-08-2023 History and physical note [facility] Amie Ryan is a 62 y.o. female she was seen in consultation for evaluation of incidentally found descending thoracic JOAQUINA at the [facility] Out[facility]. Patient [...] control is critical. Lynn Richardson MD 06/08/2023 [facility] History and physical note 06-08-2023 Mariam Sharp MD - 06/08/2023 11:15 AM EST Note Date & Type Note Facility 06-08-2023 History and physical note [facility] H&P Amie Ryan is a 62 y.o. female she was seen in consultation for evaluation of incidentally found descending thoracic JOAQUINA at the [facility] Outpatient [facility]. Patient [...] Richardson MD 06/08/2023 documented in this encounter [facility] Instructions 06-08-2023 Patient Instructions Note Date & [...] done outside the [facility] system, please call [phone] to inform us where you went so [...] your scheduled CTA please call radiology at [phone]. documented in this encounter [facility] Evaluation note Note Date & Type Note Facility documented in this encounter [facility] Evaluation note Note Date & Type Note Facility documented in this encounter [facility] Summary Purpose Family History No Family History [...] ANEURYSM STUDY WITH AND WITHOUT CONTRAST CHEST/ABDOMEN/PELVIS NM CT ANGIO ABD&PLVIS CNTRST MTRL W/WO CNTRST IMGES [place] CT ANGIO, CHEST (NON-CORON), COMBO, INCL IMG Lynn Mccain MD [facility] [place] [address] Referral ID Status Reason Start Date Expiration Date V isits Requested Visits Authorized [id number] New Request 06/08/2023 07/02/2024 1 1 Specialty Diagnoses / Procedures Referred By Contac t Referred To Contact Diagnoses Abdominal aortic aneurysm (AAA) without rupture, unspecified part Procedures CT ANEURYSM STUDY WITH AND WITHOUT CONTRAST CHEST/ABDOMEN/PELVIS NM CT ANGIO ABD&PLVIS CNTRST MTRL W/WO CNTRST IMGES [place] CT ANGIO, CHEST (NON-CORON), COMBO, INCL IMG Lynn Mccain MD [address] [id number] Referral ID Status Reason Start Date Expiration Date Visits Re quested Visits Authorized [id number] Closed 06/01/2023 06/25/2024 1 1 Additional Source Comments INFORMATION SOURCE (unrecogn ized section and content) DATE CREATED AUTHOR AUTHOR'S ORGANIZ ATION 01/18/2020 [facility] DATE CREATED AUTHOR AUTHOR'S ORGANIZ ATION 05/04/2022 [facility] DATE CREATED AUTHOR AUTHOR'S ORGANIZ ATION 06/11/2023 [facility] <item><item><item> Privacy Markings (unrecogniz ed section and [...] unspecified portion of aorta Deborah Hall MD [facility] [address] [place] [address] Referral ID Status Reason Start Date Expiration Date V isits Requested Visits Authorized [id number] New Request 05/22/2023 06/15/2024 1 1 Specialty Diagnoses / Procedures Referred By Contac t Referred To Contact Diagnoses Abdominal aortic aneurysm (AAA) without rupture, unspecified part Procedures CT ANEURYSM STUDY WITH AND WITHOUT CONTRAST CHEST/ABDOMEN/PELVIS NM CT ANGIO ABD&PLVIS CNTRST MTRL W/WO CNTRST IMGES [place] CT ANGIO, CHEST (NON-CORON), COMBO, INCL IMG PROC Lynn Richardson MD [address] [place] [address] Referral ID Status Reason Start Date Expiration Date Visits Re quested Visits Authorized [id number] Closed 06/01/2023 06/25/2024 1 1 Care Teams (unrecognized sec tion and content) Motor Runner Relationship Specialty Start Date End Date Santos Rust MD [address] [facility] [address] [place], [place] [address] PCP - General 06/07/23 FOR RECORDS PERTAINING [...] BE BASED ON THE PRIMARY CLINICAL RECORDS. [employer] provides no warranty or guarantee of the accuracy or completeness of information in this document.
== END | disposition home or self-care (01) ==
LOC: PSN 08:52
PROVIDERS: PCP Family Medicine Geriatric Medicine; Referring Provider Internal Medicine Cardiovascular Disease; Visit Provider Internal Medicine Cardiovascular Disease
DX: R94.31 Abnormal electrocardiogram [ECG] [EKG] (principal); R00.2 Palpitations; R00.1 Bradycardia, unspecified; R55 Syncope and collapse
CPT/HCPCS: 93225; 93226

== ENCOUNTER → 2023-09-19 | Outpatient (CLI) | payer OTHER, SELFPAY ==
[2023-09-19 09:21] LABS: Hemoglobin 11.9 g/dL (12.0-15.0); Mean Corp Hgb Conc 31.3 g/dL (32-36); Mean Corpuscular Hgb 30.7 pg (27.0-32.0); Mean Corpuscular Volume 98.2 fL (81-99); Mean Platelet Vol. 8.8 fl (6.2-12.0); Platelet Count 299 K/mm3 (150-450); RBC Distribution Width CV 13.3 % (11.6-14.6); RBC Distribution Width SD 47.4 fl (35.1-43.9); Red Blood Count 3.87 M/mm3 (4.2-5.4); White Blood Count 3.5 K/mm3 (4.4-11.0)
[2023-09-19 09:44] LABS: Anion Gap 4 (5-15); BUN 17 mg/dL (7-18); BUN/Creat Ratio 17.4 RATIO (10-20); Calcium,Total 9.4 mg/dL (8.5-10.1); Chloride 109 mmol/L (98-107); Creatinine, Serum 0.98 mg/dL (0.55-1.02); EST Glomerular Filtration Rate 61 mL/min (>60); Est Glom Filt Rate - Afr Amer 74 mL/min (>60); Glucose 91 mg/dL (74-106); Potassium 4.2 mmol/L (3.5-5.1); Sodium Level 140 mmol/L (136-145)
--- NOTE | 2023-09-19 16:37 | PCM.TILTTABL ---
Staff Staff: Augustina Seals and Nayeli Virgen Summary Pre Test Resting HR: 64 Pre Test Resting BP: 110/75 Minimum Test HR: 47 Maximum Test HR: 78 Minimum Test BP: 0/0 Maximum Test BP: 117/70 Reason for Test Termination: Syncope Physician Tilt Table Report Patient's Physicians Primary Care Physician: Renato Bonilla [employer] Superintendent: Abdiel Lennon Indications/Diagnosis: Syncope Procedure Comments: The patient was brought to the noninvasive lab in the postabsorptive nonsedated state. Informed consent was obtained. Initial heart rate on the EKG was 56 bpm with a blood pressure of 121/75 mmHg. The patient was then placed in the 70 degree head upright tilt position. Continuous EKG monitoring was performed. The patient was monitored and on the EKG was noted to have T wave inversions noted in leads II, III and aVF V4 through V6. The patient continued to be monitored and was doing well with mild complaints of chest heaviness and feeling foggy. After approximately 20 minutes patient was put back in the recumbent position. The patient was then administered 0.4 mg of sublingual nitroglycerin. And the patient was put in the head upright tilt position at 70 degrees. Patient continued to complain of some chest heaviness and started getting bradycardic with high vagal response and then passed out. The patient was put in the recumbent position treated with intravenous fluids and subsequently recovered with a final blood pressure of 123/71 and heart rate of 62 bpm. Patient was noted to have normalized the EKG postprocedure. Summary: Evidence of vasodepressive syncope noted on tilt table with T wave inversions noted on EKG.
[2023-09-19 16:42] VITALS: BP 0/0; BP 110/75; BP 117/70
== END | disposition home or self-care (01) ==
LOC: CVS 08:56
PROVIDERS: PCP Family Medicine Geriatric Medicine; Referring Provider Internal Medicine Cardiovascular Disease; Visit Provider Internal Medicine Cardiovascular Disease
DX: R00.2 Palpitations (principal); I25.10 Atherosclerotic heart disease of native coronary artery without angina pectoris; D64.9 Anemia, unspecified; R55 Syncope and collapse; R42 Dizziness and giddiness; Z95.5 Presence of coronary angioplasty implant and graft; R00.1 Bradycardia, unspecified
CPT/HCPCS: 36415; 80048; 85027; 93660; J7040; A4216

== ENCOUNTER → 2023-10-21 | Outpatient (CLI) | payer OTHER, SELFPAY ==
[2023-10-21 12:20] LABS: Absolute Lymphocyte Count 1.54 X10^3/uL (0.83-4.51); Absolute Neutrophil Count 2.3 X10^3/uL (2.0-7.7); Basophil# 0.03 X10^3/uL; Basophil% 0.6 % (0-1); Eosinophils% 2.1 % (0-5); Hematocrit 36.6 % (37-47); Hemoglobin 12.1 g/dL (12.0-15.0); Lymphocyte # 1.54 X10^3/ul (0.83-4.51); Lymphocyte % 32.7 % (19-41); Mean Corp Hgb Conc 33.1 g/dL (32-36); Mean Corpuscular Hgb 32.6 pg (27.0-32.0); Mean Corpuscular Volume 98.7 fL (81-99); Monocyte# 0.67 X10^3/uL; Monocyte% 14.2 % (0-10); NRBC Flagged by Analyzer 0 % (0-5); Neutrophil % 48.9 % (47-70); Platelet Count 291 K/mm3 (150-450); RBC Distribution Width CV 12.1 % (11.6-14.6); Red Blood Count 3.71 M/mm3 (4.2-5.4); White Blood Count 4.7 K/mm3 (4.4-11.0)
[2023-10-21 13:09] LABS: ALB/GLOB Ratio 1.1 RATIO (0.9-2.4); AST(SGOT) 24 U/L (15-37); Alanine Aminotransfer ALT/SGPT 20 U/L (13-56); Albumin, Serum 3.9 g/dL (3.2-5.0); Alkaline Phosphatase 103 U/L (45-117); Anion Gap 8 (5-15); BUN 17 mg/dL (7-18); BUN/Creat Ratio 17.8 RATIO (10-20); Chloride 106 mmol/L (98-107); Cholesterol 139 mg/dL (200); Creatinine, Serum 0.95 mg/dL (0.55-1.02); EST Glomerular Filtration Rate 63 mL/min (>60); Est Glom Filt Rate - Afr Amer 77 mL/min (>60); Globulin 3.7 g/dL (2.2-4.2); Glucose 89 mg/dL (74-106); High Density Lipoprotein 89 mg/dL; Potassium 4.1 mmol/L (3.5-5.1); Protein, Total 7.6 g/dL (6.4-8.2); Sodium Level 139 mmol/L (136-145); Thyroid Stim Hormone (TSH) 0.71 uIU/mL (0.358-3.74); Triglycerides 71 mg/dL; Very Low Density Lipoprotein 14 mg/dL (5-40)
== END | disposition home or self-care (01) ==
LOC: LAB.FUTURE 10:39 → LAB 10:40
PROVIDERS: PCP Family Medicine Geriatric Medicine; Referring Provider Family Medicine Geriatric Medicine; Visit Provider Family Medicine Geriatric Medicine
DX: I10 Essential (primary) hypertension (principal); E78.5 Hyperlipidemia, unspecified
CPT/HCPCS: 36415; 80053; 80061; 84443; 85025

== ENCOUNTER → 2023-11-23 | Outpatient (CLI) | payer OTHER, SELFPAY ==
--- NOTE | 2023-11-23 15:52 | BI_ITS ---
MAMMOGRAPHY - BILATERAL SCREENING 3-D TOMOSYNTHESIS REASON FOR EXAM: Female, 63 years old. SCREENING PERTINENT HISTORY: No significant family history. TECHNIQUE: 2-D mammograms and 3-D Tomosynthesis of the breast (s) were performed. CAD was performed. COMPARISON: 11/01/2022 FINDINGS: The breast composition is Extermely dense tissue. Scattered benign calcifications are seen. No dense spiculated masses or suspicious microcalcifications are identified. No architectural distortion is identified. There is no skin thickening or retraction. There has been no significant change since the prior study. BI/SCRN MAMM (CAD)W/KRIS BILAT IMPRESSION: No mammographic signs of malignancy. Routine yearly mammograms recommended. ASSESSMENT CATEGORY: BIRADS Category 1: Negative. A letter regarding these results will be sent to the patient by the facility within 30 days. FOLLOW UP RECOMMENDATION: Yearly follow up mammogram recommended. (A) Approximately 10% of breast cancers are not detected by mammography. A normal mammogram should not delay biopsy of a clinically suspicious abnormality. Electronically Signed: Sebastien Rodriguez MD at 17:33 EDT ,
--- NOTE | 2023-11-23 15:53 | BD_ITS ---
STUDY: DUAL ENERGY X-RAY ABSORPTIOMETRY / DXA REASON FOR EXAM: Female, 63 years old. [id number] TECHNIQUE: Bone Mineral Density (BMD) measurements of lumbar spine and bilateral hips were obtained. COMPARISON: Comparison is made with prior study dated August 02, 2012. FINDINGS: Lumbar Spine (L1-L4): g/cm2 (0.959) / T-score (-0.7) / Z-score (0.8) Findings are suggestive of normal bone density with a low fracture risk. Left Femur Total: g/cm2 (0.833) / T-score (-0.9) / Z-score (0.1) Left Femoral Neck: g/cm2 (0.649) / T-score (-1.8) / Z-score (-0.5) Right Femur Total: g/cm2 (0.881) / T-score (-0.5) / Z-score (0.5) Right Femoral Neck: g/cm2 (0.715) / T-score (-1.2) / Z-score (0.1) The T-Scores on the most recent prior examination were: Lumbar Spine (L1-L4): There has been worsening of bone density since the previous examination. Left Femur Total: which represents a worsening of 12.4%. Right Femur Total: which represents a worsening of 11.3%. BD/Dexa Bone Density Study IMPRESSION: The patient is considered osteopenic as outlined below according to World Brandon Organization (WHO) criteria with a moderate fracture risk. There has been worsening of bone density since the previous examination. Reference Information: The T-score is the number of standard deviations above or below the standard which is normal for young adults at their peak bone mineral density. The World Health Organization (WHO) interprets the T-scores as follows: Above -1 Normal bone density Between -1 and -2.5 Osteopenia Equal to / or below -2.5 Osteoporosis As a practical clinical guideline, osteopenia may be graded as follows: Mild -1 through -1.5 Moderate -1.6 through -2.0 Severe -2.1 through -2.4 The Z-score is the number of standard deviations above or below age-matched controls. A Z-score of less than -1.5 would be considered abnormal. References: 1. NIH Osteoporosis and Related Bone Diseases www osteo.org 2. International Society for Clinical Densitometry www iscd.org 3. National Osteoporosis Foundation www nof.org Electronically Signed: Abdelrahman Garcia MD at 12:57 EDT ,
== END | disposition home or self-care (01) ==
LOC: OPBD 15:51
PROVIDERS: PCP Family Medicine Geriatric Medicine; Referring Provider Family Medicine Geriatric Medicine; Visit Provider Family Medicine Geriatric Medicine
DX: Z12.31 Encounter for screening mammogram for malignant neoplasm of breast (principal); Z78.0 Asymptomatic menopausal state
CPT/HCPCS: 77063; 77067; 77080

== ENCOUNTER → 2024-04-18 | Outpatient (CLI) | payer OTHER, SELFPAY ==
[2024-04-18 16:49] LABS: Absolute Lymphocyte Count 1.45 X10^3/uL (0.83-4.51); Absolute Neutrophil Count 1.8 X10^3/uL (2.0-7.7); Basophil# 0.04 X10^3/uL; Eosinophil# 0.13 X10^3/uL; Eosinophils% 3.4 % (0-5); Hematocrit 36.3 % (37-47); Hemoglobin 11.9 g/dL (12.0-15.0); Lymphocyte # 1.45 X10^3/ul (0.83-4.51); Lymphocyte % 38.1 % (19-41); Mean Corp Hgb Conc 32.8 g/dL (32-36); Mean Corpuscular Hgb 32.9 pg (27.0-32.0); Mean Corpuscular Volume 100.3 fL (81-99); Mean Platelet Vol. 9.1 fl (6.2-12.0); Monocyte# 0.34 X10^3/uL; Monocyte% 8.9 % (0-10); NRBC Flagged by Analyzer 0 % (0-5); Neutrophil # 1.84 X10^3/uL (2.7-7.7); Neutrophil % 48.3 % (47-70); Platelet Count 257 K/mm3 (150-450); RBC Distribution Width CV 12.2 % (11.6-14.6); RBC Distribution Width SD 45.1 fl (35.1-43.9); Red Blood Count 3.62 M/mm3 (4.2-5.4); White Blood Count 3.8 K/mm3 (4.4-11.0)
[2024-04-18 17:42] LABS: ALB/GLOB Ratio 1.1 RATIO (0.9-2.4); AST(SGOT) 32 U/L (15-37); Alanine Aminotransfer ALT/SGPT 28 U/L (13-56); Albumin, Serum 4.2 g/dL (3.2-5.0); Alkaline Phosphatase 114 U/L (45-117); Anion Gap 5 (5-15); BUN 18 mg/dL (7-18); Calcium,Total 9.2 mg/dL (8.5-10.1); Chloride 105 mmol/L (98-107); Cholesterol 157 mg/dL (200); EST Glomerular Filtration Rate 60 mL/min (>60); Est Glom Filt Rate - Afr Amer 72 mL/min (>60); Globulin 3.7 g/dL (2.2-4.2); Glucose 126 mg/dL (74-106); High Density Lipoprotein 101 mg/dL; Potassium 3.7 mmol/L (3.5-5.1); Protein, Total 7.9 g/dL (6.4-8.2); Sodium Level 137 mmol/L (136-145); Thyroid Stim Hormone (TSH) 0.784 uIU/mL (0.358-3.740); Triglycerides 117 mg/dL; Very Low Density Lipoprotein 23 mg/dL (5-40)
[2024-04-19 11:07] LABS: Vitamin D,25 Hydroxy 28.4 ng/mL
== END | disposition home or self-care (01) ==
LOC: POLAB3 16:14
PROVIDERS: PCP Family Medicine Geriatric Medicine; Visit Provider Family Medicine Geriatric Medicine
DX: I10 Essential (primary) hypertension (principal); E78.5 Hyperlipidemia, unspecified; E55.9 Vitamin D deficiency, unspecified
CPT/HCPCS: 36415; 80053; 80061; 82306; 84443; 85025

== ENCOUNTER → 2024-10-26 | Outpatient (CLI) | payer OTHER, SELFPAY ==
[2024-10-26 09:48] LABS: Absolute Neutrophil Count 1.1 X10^3/uL (2.0-7.7); Basophil# 0.04 X10^3/uL; Basophil% 1.3 % (0-1); Eosinophil# 0.08 X10^3/uL; Eosinophils% 2.6 % (0-5); Hematocrit 37.7 % (37-47); Hemoglobin 12.7 g/dL (12.0-15.0); Lymphocyte % 47.9 % (19-41); Mean Corp Hgb Conc 33.7 g/dL (32-36); Mean Corpuscular Hgb 32.8 pg (27.0-32.0); Mean Corpuscular Volume 97.4 fL (81-99); Mean Platelet Vol. 8.9 fl (6.2-12.0); Monocyte# 0.36 X10^3/uL; Monocyte% 11.5 % (0-10); NRBC Flagged by Analyzer 0 % (0-5); Neutrophil # 1.14 X10^3/uL (2.7-7.7); Neutrophil % 36.4 % (47-70); Platelet Count 245 K/mm3 (150-450); RBC Distribution Width CV 11.7 % (11.6-14.6); RBC Distribution Width SD 42.4 fl (35.1-43.9); Red Blood Count 3.87 M/mm3 (4.2-5.4); White Blood Count 3.1 K/mm3 (4.4-11.0)
[2024-10-26 10:27] LABS: ALB/GLOB Ratio 1.7 RATIO (0.9-2.4); AST(SGOT) 28 U/L (<=31); Alanine Aminotransfer ALT/SGPT 13 U/L (<=34); Albumin, Serum 4.5 g/dL (3.4-4.8); Alkaline Phosphatase 86 U/L (35-104); Anion Gap 11 (5-15); BUN 16 mg/dL (4-19); BUN/Creat Ratio 15.7 RATIO (10-20); Calcium,Total 9.5 mg/dL (7.6-11.0); Carbon Dioxide 25.7 mmol/L (21.0-32.0); Chloride 105 mmol/L (98-108); Cholesterol 144 mg/dL (<=200); EST Glomerular Filtration Rate 64 (>60); Globulin 2.7 g/dL (2.2-4.2); Glucose 90 mg/dL (70-99); High Density Lipoprotein 76 mg/dL; Low Density Lipoprotein Calc. 55 mg/dL; Potassium 4.2 mmol/L (3.3-5.1); Protein, Total 7.2 g/dL (5.9-8.4); Sodium Level 142 mmol/L (133-145); Total Bilirubin 0.34 mg/dL (0.00-1.30); Triglycerides 65 mg/dL; Very Low Density Lipoprotein 13 mg/dL (5-40)
[2024-10-26 10:29] LABS: Vitamin D,25 Hydroxy 34.9 ng/mL (30-100)
== END | disposition home or self-care (01) ==
LOC: LAB 08:57
PROVIDERS: PCP Family Medicine Geriatric Medicine; Referring Provider Family Medicine Geriatric Medicine; Visit Provider Family Medicine Geriatric Medicine
DX: I10 Essential (primary) hypertension (principal); E78.5 Hyperlipidemia, unspecified; E55.9 Vitamin D deficiency, unspecified
CPT/HCPCS: 36415; 80053; 80061; 82306; 84443; 85025

== ENCOUNTER → 2024-10-31 | Outpatient (CLI) | payer OTHER, SELFPAY ==
--- NOTE | 2024-10-31 11:53 | US_ITS ---
PROCEDURE: KIDNEY AND BLADDER (USKI), 10/31/2024 REASON FOR EXAM: OVERACTIVE BLADDER TECHNIQUE: Grayscale and color/spectral doppler ultrasound of the kidneys and bladder was performed. COMPARISON: None FINDINGS: Right kidney: 10.8 cm in length. Cyst measures 7 x 5 x 5 mm. No visualized calculus or hydronephrosis. Left kidney: 9.9 cm in length. Cysts up to 15 x 11 x 11 mm superiorly. A 11 x 12 x 11 mm cyst in the mid kidney laterally demonstrates a questionable septation and mural calcifications. No visualized hydronephrosis. Bladder: Estimated volume 271 mL. Borderline mild bladder wall thickening to 4 mm. Other: None. US/Kidney and Bladder IMPRESSION: 1. No hydronephrosis. 2. 11 mm mildly complex LEFT renal cyst, probably Bosniak II although incomplet minerva characterized by ultrasound. Consider follow-up in 6-12 months and/or comparison against any available outside imagin g. 3. Borderline mild bladder wall thickening. Correlate for cystitis and/or geological technician florin bladder outlet obstruction. 4. Additional description as above. Reading Location: [id number]
--- NOTE | 2024-10-31 12:33 | CDU_ITS ---
Reason For Study Reason For Study: Syncope Rt. Velocities/BP Lt. Velocities/BP Prox CCA 122.9/9.7 cm/sec. Prox CCA 65.5/12.6 cm/sec. Mid CCA 77.7/9.0 cm/sec. Mid CCA 76.8/15.4 cm/sec. Dist CCA 52.0/17.9 cm/sec. Dist CCA 73.0/21.1 cm/sec. Prox ICA 43.3/13.0 cm/sec. Prox ICA 46.3/11.7 cm/sec. Mid ICA 55.1/12.7 cm/sec. Mid ICA 25.5/9.5 cm/sec. Dist ICA 48.9/19.5 cm/sec. Dist ICA 75.3/26.8 cm/sec. Rt. ICA/CCA = 0.7. Lt. ICA/CCA = 1.0. Prox ECA 55.7/9.5 cm/sec. Prox ECA 28.7/6.6 cm/sec. Rt. Vert. 31.5/12.6 cm/sec. Lt. Vert. 45.8/11.4 cm/sec. Right Extracranial There is homogeneous, irregular atherosclerotic plaque noted in the right common carotid artery. There is heterogeneous, irregular atherosclerotic plaque noted in the right internal carotid artery. The right internal carotid artery is very tortuous. There is heterogeneous, irregular atherosclerotic plaque noted in the right external carotid artery. Antegrade flow is noted in the right vertebral artery. Left Extracranial There is heterogeneous, irregular atherosclerotic plaque noted in the left common carotid artery. There is heterogeneous, irregular atherosclerotic plaque noted in the left internal carotid artery. The left internal carotid artery is very tortuous. There is heterogeneous, irregular atherosclerotic plaque noted in the left external carotid artery. Antegrade flow is noted in the left vertebral artery. Procedure Carotid Duplex 43241. This is a Carotid Duplex examination using B-mode, color flow and specral Doppler. Exam performed in department. VL/Carotid Duplex Ultrasound Interpretation Summary Mild (<50%) stenosis right extracranial internal carotid. Mild (<50%) stenosis left extracranial internal carotid. Patent and antegrade vertebrals bilaterally. Ordering Physician: Iva Calhoun Referring Physician: Renato Bonilla Chi Performed By: Susan Pike RVT
== END | disposition home or self-care (01) ==
LOC: US 11:52
PROVIDERS: PCP Family Medicine Geriatric Medicine; Referring Provider Family Medicine Geriatric Medicine; Visit Provider Family Medicine Geriatric Medicine
DX: R55 Syncope and collapse (principal); N32.81 Overactive bladder
CPT/HCPCS: 76770; 93880

== ENCOUNTER → 2024-11-11 | Outpatient (CLI) | payer OTHER, SELFPAY | END | disposition home or self-care (01) | PROVIDERS: PCP Family Medicine Geriatric Medicine; Referring Provider Family Medicine Geriatric Medicine; Visit Provider Family Medicine Geriatric Medicine | DX: N39.0 Urinary tract infection, site not specified (principal) | CPT/HCPCS: 87086; 87088 ==

== ENCOUNTER → 2024-11-29 | Outpatient (CLI) | payer OTHER, SELFPAY ==
--- NOTE | 2024-11-29 15:32 | MRI_ITS ---
PROCEDURE: MRI ABD WITH AND W/O CONTRAST 11/29/2024 REASON FOR EXAM: LT KIDNEY CYST TECHNIQUE: MRI of the upper abdomen without and with intravenous gadolinium-based contrast. Multiplanar and multisequence images were obtained. CONTRAST: CLARISCAN VOLUME: 13mL gauge IV COMPARISON: ULTRASOUND EXAM ON 10/31/2024. FINDINGS: Unchanged scattered right renal simple cysts with the largest measuring 8 mm. Unchanged scattered left renal simple cysts with the largest measuring 1.5 cm. The previously described septated cyst in the mid aspect of the left kidney measures 1.1 x 1.2 x 1.1 cm. No associated suspicious enhancing nodule. Findings are probably suggestive of Bosniak type 2 cyst. The visualized lung bases are unremarkable. Normal liver. Normal gallbladder and extrahepatic biliary system. Normal spleen. Normal pancreas. Normal bilateral adrenal glands. Normal size of the right kidney. There is no right renal mass. There are no right renal calculi. There is no right hydronephrosis. Normal visualized right ureter. Normal size of the left kidney. There is no left renal mass. There are no left renal calculi. There is no left hydronephrosis. Normal visualized left ureter. Normal visualized stomach. Normal small intestine. Normal colon. There is no demonstrated peritoneal fluid. Normal abdominal aorta. Normal inferior vena cava. Normal retroperitoneum. Normal urinary bladder. There is no pelvic mass lesion or lymphadenopathy. There is no pelvic fluid. Normal abdominal wall. Normal osseous structures. MRI/MRI Abd WITH and W/O Contrast IMPRESSION: 1. Unchanged scattered right renal simple cysts with the largest measuring 8 mm . 2. Unchanged scattered left renal simple cysts with the largest measuring 1.5 c m. 3. The previously described septated cyst in the mid aspect of the left kidney measures 1.1 x 1.2 x 1.1 cm. No associated suspicious enhancing nodule. Findings are probably suggestive of Bosniak type 2 cyst. Reading Location: [id number]
== END | disposition home or self-care (01) ==
LOC: MRI 15:13
PROVIDERS: PCP Family Medicine Geriatric Medicine; Referring Provider Family Medicine Geriatric Medicine; Visit Provider Family Medicine Geriatric Medicine
DX: N28.1 Cyst of kidney, acquired (principal)
CPT/HCPCS: 74183; A9575

== ENCOUNTER → 2025-02-19 | Outpatient (CLI) | payer OTHER, SELFPAY | END | disposition home or self-care (01) | LOC: POLAB3 16:21 | PROVIDERS: PCP Family Medicine Geriatric Medicine; Visit Provider Family Medicine Geriatric Medicine | DX: R68.83 Chills (without fever) (principal) | CPT/HCPCS: 87631 ==

== ENCOUNTER → 2025-02-24 | Outpatient (CLI) | payer OTHER, SELFPAY ==
[2025-02-24 15:52] LABS: Hematocrit 34.3 % (37-47); Hemoglobin 11.5 g/dL (12.0-15.0); Immature Granulocytes Count 0.020 X10^3/uL (0.0-0.0); Mean Corp Hgb Conc 33.5 g/dL (32-36); Mean Corpuscular Volume 98.0 fL (81-99); Mean Platelet Vol. 9.0 fl (6.2-12.0); NRBC Flagged by Analyzer 0 % (0-5); POSITIVE MORPHOLOGY YES; Platelet Count 282 K/mm3 (150-450); RBC Distribution Width CV 12.1 % (11.6-14.6); RBC Distribution Width SD 44.3 fl (35.1-43.9); Red Blood Count 3.50 M/mm3 (4.2-5.4); White Blood Count 8.1 K/mm3 (4.4-11.0)
[2025-02-24 16:30] LABS: Differential Indicated SCAN CRITERIA MET
[2025-02-24 16:50] LABS: Anion Gap 13 (5-15); BUN 42 mg/dL (4-19); BUN/Creat Ratio 42.2 RATIO (10-20); Calcium,Total 9.6 mg/dL (7.6-11.0); Carbon Dioxide 24.8 mmol/L (21.0-32.0); Chloride 100 mmol/L (98-108); Glucose 101 mg/dL (70-99); Potassium 3.6 mmol/L (3.3-5.1)
[2025-02-24 20:26] LABS: Differential Comment SCANNED
== END | disposition home or self-care (01) ==
LOC: POLAB3 15:07
PROVIDERS: PCP Family Medicine Geriatric Medicine; Visit Provider Family Medicine Geriatric Medicine
DX: I10 Essential (primary) hypertension (principal); K92.1 Melena
CPT/HCPCS: 36415; 80048; 82274; 85025

== ENCOUNTER → 2025-02-27 | Outpatient (CLI) | payer OTHER, SELFPAY ==
[2025-02-27 17:15] LABS: Hematocrit 24.1 % (37-47); Hemoglobin 8.2 g/dL (12.0-15.0); Immature Granulocytes Count 0.070 X10^3/uL (0.0-0.0); Mean Corp Hgb Conc 34.0 g/dL (32-36); Mean Corpuscular Volume 96.4 fL (81-99); Mean Platelet Vol. 8.9 fl (6.2-12.0); NRBC Flagged by Analyzer 0 % (0-5); Platelet Count 270 K/mm3 (150-450); RBC Distribution Width CV 13.8 % (11.6-14.6); RBC Distribution Width SD 47.8 fl (35.1-43.9); Red Blood Count 2.50 M/mm3 (4.2-5.4); White Blood Count 7.1 K/mm3 (4.4-11.0)
== END | disposition home or self-care (01) ==
LOC: POLAB3 16:29
PROVIDERS: PCP Family Medicine Geriatric Medicine; Visit Provider Family Medicine Geriatric Medicine
DX: D62 Acute posthemorrhagic anemia (principal); I10 Essential (primary) hypertension
CPT/HCPCS: 36415; 85025; 86850; 86900; 86901

== ENCOUNTER 2025-02-28 09:22 | Inpatient (IN) | payer OTHER, SELFPAY ==
[2025-02-28] VITALS (22 sets, daily range): BP systolic 90–155; BP diastolic 51–87; PULSE 56–86; RESP 12–18; TEMP 36.1–37; O2SAT 91–100; BMI 22.8; BMI 22.1; BMI 22.6
--- NOTE | 2025-02-28 09:57 | EKG12_ITS ---
Test Reason : ABN LABS Blood Pressure : */* mmHG Vent. Rate : 65 BPM Atrial Rate : 65 BPM P-R Int : 180 ms QRS Dur : 78 ms QT Int : 402 ms P-R-T Axes : 83 16 84 degrees QTcB Int : 418 ms Normal sinus rhythm Low voltage QRS Cannot rule out Septal infarct , age undetermined Abnormal ECG Confirmed by Ed Leyva ([id number]), book editor LAUREN MERAZ ([id number]) on 03/04/2025 9:56:42 AM Referred By: Confirmed By: Ed Leyva
--- NOTE | 2025-02-28 09:58 | EX.ED.DYSGE1 ---
HPI History of Present Illness Chief Complaint: Abn Labs Narrative Narrative: Patient is a 64-year-old female presenting to the emergency department for generalized fatigue, mild shortness of breath and abnormal outpatient hemoglobin. She is not on OAC. Patient states that on Monday she was having similar symptoms, she went to [facility] emergency department where her hemoglobin was tested and it dropped from 11 to 7. She got 1 unit of PRBC and was observed overnight. There was no EGD or colonoscopy done. Reportedly at that time she had a fecal occult that was positive. She states that over the past few days she has continued to notice melanotic stool as well as generalized fatigue. She states that she called her primary care doctor today while she was at work and he told her to come be evaluated. She denies any abdominal pain, nausea, vomiting, diarrhea. States that she does take iron supplements 3 times a week but her stool looks different than normal. Reports there is no bright red blood per rectum. Reports her last EGD and colonoscopy were in [address] Bennett. Patient reports that she has never received a blood transfusion before this and has never had a GI bleed. [facility] Medical History Coronary artery disease Raynauds phenomenon Dyslipidemia Palpitations Hypokalemia Abnormal findings diagnostic imaging of heart and coronary circulation (06/07/23) Atherosclerotic heart disease of [place] coronary artery without angina pectoris (06/07/23) 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) Anxiety Shortness of breath on exertion History of echocardiogram History of stress test Cardiology follow-up encounter History of irregular heartbeat Guaiac positive stools Abnormal ECG Anemia Blood in stool Pseudoaneurysm of aorta Fatigue Syncope Vitamin D deficiency Major depressive disorder, recurrent episode, in full remission Lightheadedness Numbness and tingling in both hands Bradycardia Wears contact lenses Post-menopausal Excessive bleeding Easy bruising Restless legs Back pain History of IBS Former smoker Encounter for screening for malignant neoplasm of colon Muscle spasm Hyperlipidemia Hypertension Home Medications ?Medication ?Instructions ?Recorded ?Last Taken ?Type magnesium oxide 400 mg PO DAILY 11/12/21 Unknown History cyclobenzaprine 10 mg tablet 10 mg PO DAILY PRN muscle spasm 05/11/23 Unknown History atorvastatin 40 mg tablet 40 mg PO QHS #30 tabs 11/15/23 Unknown Rx cholecalciferol (vitamin D3) 25 25 mcg PO DAILY 05/31/23 Unknown History mcg (1,000 unit) tablet (Vitamin D3) aspirin 81 mg tablet,delayed 81 mg PO DAILY 06/12/23 06/15/23 History release (Adult Aspirin Regimen) calcium carbonate (Calcium 600) 600 mg PO DAILY 02/22/24 Unknown History ferrous sulfate 325 mg (65 mg 325 mg PO Q OTHER DAY 02/22/24 Unknown History iron) tablet (FeroSul) losartan 50 mg tablet 50 mg PO DAILY #90 tabs 06/28/24 Unknown Rx Held on 02/28/25. Instructions: per t report amlodipine 5 mg tablet 5 mg PO DAILY #90 tabs 02/19/25 Unknown Rx Held on 02/28/25. Instructions: per pt preport Allergy/AdvReac Type Severity Reaction Status Date / Time No Known Allergies Allergy Verified 02/28/25 09:22 Family History Mother Hypertension Cancer Arthritis CVA (cerebral vascular accident) Stomach ulcer Father Cancer bladder Grandmother Cancer Uncle Prostate carcinoma Surgical History Stented coronary artery (06/15/23) Hx of hysterectomy Hx of colonoscopy Social History household members: spouse Smoking Status: Former smoker alcohol intake: former year quit: 1990 substance use type: does not use caffeine: Yes Type: carbonated beverages Number of servings: 1 ROS ROS ED ROS Narrative see HPI EXAM Physical Exam Narrative Exam Narrative: Vital signs: Reviewed General: Alert and oriented. No acute distress HEENT: Head is normocephalic and atraumatic, sinuses nontender, pupils equal round and reactive. Nares are patent. Oropharynx and throat exams normal. Neck: Supple without lymphadenopathy nontender Cardiovascular: Regular rate and rhythm, no murmurs. No rubs or gallops. Normal S1 and S2 Respiratory: Clear to auscultation bilaterally. No wheezes, rales, rhonchi Abdominal: Soft and nontender. Normal bowel sounds. No guarding or rebound. Nonsurgical abdomen Extremities: No tenderness. No bruising. Normal range of motion. Normal sensation. Skin: No rash or redness. Neurological: Cranial nerves II through XII are grossly intact. Normal strength and sensation. Normal cerebellar function The rest of the physical exam is unremarkable Const Vital Signs: 02/28/25 09:22 02/28/25 09:43 Temperature 97.6 F L Temperature Source Temporal Pulse Rate 83 Respiratory Rate 14 Respiratory Pattern Normal Blood Pressure 126/70 H Blood Pressure Mean 88 Pulse Ox 98 Oxygen Delivery Method Room Air MDM MDM MDM Narrative Medical decision making narrative: Patient is a 64-year-old female presenting to the emergency department for fatigue, shortness of breath and dropping hemoglobin. Patient was seen and examined. Vitals are stable. Patient resting bed comfortably in no acute distress. EKG with normal sinus rhythm. No ischemic changes. No dysrhythmia. CBC with no leukocytosis and hemoglobin of 6.7, dropped from 8.2 yesterday and from 11.5 on 02/24/25. CMP with elevated BUN of 34 consistent with her upper GI bleed. Patient is saying that she has melanotic stool and had a Hemoccult done at outside facility and I do not think it is necessary to repeat this here. She is having no abdominal pain and no brisk bleeding I do not think it is necessary to obtain CT imaging. Patient consented for 1 unit PRBC. Spoke to RIVKA Potter to have an EGD done. He states will likely do this morning/afternoon. Given this is the second time patient has been seen in the ED in the past week for GI bleed and her Hgb continues to drop, she will be admitted for symptomatic anemia and EGD. Will admit to hospitalist. Clinical impression: UGIB Acute on chronic anemia Elevated BUN History & Record Review Discussion w/independent historian: Patient Additional record(s) reviewed:: Prior outpatient record Lab Data Attestation: I reviewed the patient's lab results. Labs: Laboratory Results - last 24 hr 02/28/25 09:40 WBC 5.7 RBC 2.05 L Hgb 6.7 L Hct 20.0 L MCV 97.6 MCH 32.7 H MCHC 33.5 RDW Std Deviation 48.3 H RDW Coeff of Yulia 13.6 Plt Count 255 MPV 8.8 Immature Gran % (Auto) 1.200 H Neut % (Auto) 56.9 Lymph % (Auto) 27.7 [place] % (Auto) 10.5 H Eos % (Auto) 3.3 Baso % (Auto) 0.4 Absolute Neuts (auto) 3.3 Absolute Lymphs (auto) 1.58 Nucleated RBC % 0.5 Sodium 136 Potassium 4.2 Chloride 102 Carbon Dioxide 24.3 Anion Gap 9 BUN 34 H Creatinine 0.82 Estim Creat Clear Calc 58.84 Est GFR (MDRD) Non-Af 81 BUN/Creatinine Ratio 41.6 H Glucose 107 H Calcium 8.6 Total Bilirubin 0.20 AST 22 ALT 14 Alkaline Phosphatase 58 Total Protein 5.9 Albumin 3.9 Globulin 2.0 L Albumin/Globulin Ratio 1.9 Discharge Plan Triage Chief Complaint: Abn Labs ED Provider: Jailene Pierre Dx/Rx/DC Orders Prescriptions: No Action magnesium oxide 400 mg magnesium tablet 400 mg PO DAILY cyclobenzaprine 10 mg tablet 10 mg PO DAILY PRN (Reason: muscle spasm) atorvastatin 40 mg tablet 40 mg PO QHS Qty: 30 2RF calcium carbonate [Calcium 600] 600 mg calcium (1,500 mg) tablet 600 mg PO DAILY ferrous sulfate [FeroSul] 325 mg (65 mg iron) tablet 325 mg PO Q OTHER DAY cholecalciferol (vitamin D3) [Vitamin D3] 25 mcg (1,000 unit) tablet 25 mcg PO DAILY aspirin [Adult Aspirin Regimen] 81 mg tablet,delayed release (DR/EC) 81 mg PO DAILY losartan 50 mg tablet 50 mg PO DAILY Qty: 90 3RF amlodipine 5 mg tablet 5 mg PO DAILY Qty: 90 3RF Primary Care Provider: Renato Bonilla Chi Referrals: Renato Bonilla Chi, MD [Primary Care Provider] - Print Language: Telugu
[2025-02-28 10:06] LABS: Hematocrit 20.0 % (37-47); Hemoglobin 6.7 g/dL (12.0-15.0); Immature Granulocytes Count 0.070 X10^3/uL (0.0-0.0); Mean Corp Hgb Conc 33.5 g/dL (32-36); Mean Corpuscular Volume 97.6 fL (81-99); Mean Platelet Vol. 8.8 fl (6.2-12.0); NRBC Flagged by Analyzer 0.5 % (0-5); Platelet Count 255 K/mm3 (150-450); RBC Distribution Width CV 13.6 % (11.6-14.6); RBC Distribution Width SD 48.3 fl (35.1-43.9); Red Blood Count 2.05 M/mm3 (4.2-5.4); White Blood Count 5.7 K/mm3 (4.4-11.0)
[2025-02-28 10:27] LABS: AST(SGOT) 22 U/L (<=31); Alanine Aminotransfer ALT/SGPT 14 U/L (<=34); Albumin, Serum 3.9 g/dL (3.4-4.8); Alkaline Phosphatase 58 U/L (35-104); Anion Gap 9 (5-15); BUN 34 mg/dL (4-19); BUN/Creat Ratio 41.6 RATIO (10-20); Calcium,Total 8.6 mg/dL (7.6-11.0); Carbon Dioxide 24.3 mmol/L (21.0-32.0); Chloride 102 mmol/L (98-108); Estimated Creatinine Clearance 58.84 ml/min (50-250); Globulin 2.0 g/dL (2.2-4.2); Glucose 107 mg/dL (70-99); Potassium 4.2 mmol/L (3.3-5.1)
[2025-02-28 11:12] LABS: Mucous, Urine 0 SEEN /hpf (<or=2+)
[2025-02-28 11:16] LABS: Color, Urine Straw (Yellow); Glucose, Dipstick Normal (Normal); Ketone-Dipstick Negative (Negative); Leukocyte Esterase-Dipstick Negative /ul (Negative); Nitrite-Dipstick Negative (Negative); Occult Blood-Urine Negative /ul (Negative); Protein-Dipstick Negative (Negative); Specific Gravity, Urine 1.005 (1.002-1.030); Urine Bilirubin Dipstick Negative (Negative)
--- NOTE | 2025-02-28 11:23 | HP.PCM.HOS_ITS ---
HPI - General General Date of Admission: 02/28/25 Date of Service: 02/28/25 Chief Complaint: Abnormal outpatient lab HPI Narrative PORTER MUSA, is a 64 F who presented to the emergency department at [facility] on 02/28/2025 due to abnormal labs. The patient was having generalized fatigue and mild shortness of breath and an outpatient CBC was drawn and she was noted to be markedly anemic. She reported on Monday she was having similar symptoms and went to [facility] and seen in the emergency department where her hemoglobin was found to be 7. It had previously been 11- 12. She was given 1 unit of packed red blood cells and observed overnight. No intervention was pursued and she was discharged. She indicates she had fecal, positive stools at that time. She reported over the past few days she has continued to have melanotic stools as well as generalized fatigue and shortness of breath. She called her primary care physician on the day of admission and she was told to be evaluated in the emergency department. She denied abdominal pain, nausea or vomiting. No stool changes at the time of presentation. She is on iron supplementation every other day. She is on aspirin at baseline but takes no other blood thinners or antiplatelet therapy. She does have previous cardiac stent in 2022. She did have an EGD and colonoscopy in [address] Bennett. She has never had GI bleed previously. The majority of the history was taken from the emergency department H&P as the patient was seen Vital signs on presentation showed a temperature of 97.6, heart rate 83, respiratory was 14, blood pressure was 126/70 and pulse ox was 98% on room air. CBC showed a hemoglobin of 6.7 but was otherwise unremarkable. Chemistry panel was unremarkable other than the elevated BUN to creatinine ratio with a BUN of 34 and a serum creatinine of 0.82 with a ratio 41.6. Given these findings upper GI bleed was suspected. Gastroenterology was contacted by the emergency department and the plan is for EGD later today. FOR[facility] Medical History AAA (abdominal aortic aneurysm) Palpitations Dyslipidemia Raynauds phenomenon Coronary artery disease Hypokalemia Abnormal findings diagnostic imaging of heart and coronary circulation (06/07/23) Atherosclerotic heart disease of [place] coronary artery without angina pectoris (06/07/23) 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) Anxiety Shortness of breath on exertion History of echocardiogram History of stress test Cardiology follow-up encounter History of irregular heartbeat Guaiac positive stools Abnormal ECG Anemia Blood in stool Pseudoaneurysm of aorta Fatigue Syncope Vitamin D deficiency Major depressive disorder, recurrent episode, in full remission Lightheadedness Numbness and tingling in both hands Bradycardia Wears contact lenses Post-menopausal Excessive bleeding Easy bruising Restless legs Back pain History of IBS Former smoker Encounter for screening for malignant neoplasm of colon Muscle spasm Hyperlipidemia Hypertension Home Medications ?Medication ?Instructions ?Recorded ?Last Taken ?Type magnesium oxide 400 mg PO DAILY 11/12/21 Unk nown History cyclobenzaprine 10 mg tablet 10 mg PO DAILY PRN muscle spasm 05/11/23 Unknown History atorvastatin 40 mg tablet 40 mg PO QHS #30 tabs Unknown Rx cholecalciferol (vitamin D3) 25 25 mcg PO DAILY Unknown History mcg (1,000 unit) tablet (Vitamin D3) aspirin 81 mg tablet,delayed 81 mg PO DAILY 06/12/23 1 08/16/22 History release (Adult Aspirin Regimen) calcium carbonate (Calcium 600) 600 mg PO DAILY Unknown History ferrous sulfate 325 mg (65 mg 325 mg PO Q OTHER DAY Unknown History iron) tablet (FeroSul) losartan 50 mg tablet 50 mg PO DAILY #90 tabs 06/03 01/23 Unknown Rx Held on 02/28/25. Instructions: per t report amlodipine 5 mg tablet 5 mg PO DAILY #90 tabs 02/19 Unknown Rx Held on 02/28/25. Instructions: per pt preport pantoprazole 40 mg tablet,delayed 40 mg PO BID 5 Unknown History release sucralfate 1 gram tablet 1 g PO BID 02/28/25 Unknown History vibegron 75 mg tablet (Gemtesa) 75 mg PO DAILY 5 Unknown History Allergy/AdvReac Type Severity Reaction Status Date / Time No Known Allergies Allergy Verified 02/28/25 09:22 Family History Mother Hypertension Cancer Arthritis CVA (cerebral vascular accident) Stomach ulcer Father Cancer bladder Grandmother Cancer Uncle Prostate carcinoma Surgical History Stented coronary artery (06/15/23) Hx of hysterectomy Hx of colonoscopy Social History household members: spouse Smoking Status: Former smoker alcohol intake: former year quit: 1990 substance use type: does not use caffeine: Yes Type: carbonated beverages Number of servings: 1 ROS Review of Systems ROS Unobtainable: Denies due to encephalopathy, due to endotracheal tube, due to mental condition, due to mental status or other Constitutional Constitutional: Reports fatigue and weakness; Denies anorexia, change in weight, chills, fever(s), malaise, night sweats or other Eyes Eyes: Denies blurry vision, change in eye color, change in vision, discharge from eye(s), double vision, erythema, eye pain, loss of vision or other ENT HEENT: Denies abnormal hearing, dysphagia, ear pain, epistaxis, headache(s), hearing loss, nasal congestion, nasal discharge, post nasal drip, sinus pressure, sore throat or other Cardiovascular Cardiovascular: Reports dyspnea on exertion; Denies chest pain, claudication, edema, lightheadedness, orthopnea, palpitations, paroxysmal nocturnal dyspnea, rapid heart rate, syncope or other Respiratory/Chest Respiratory/Chest: Reports dyspnea, shortness of breath at rest and shortness of breath with exertion; Denies cough, excessive phlegm production, hemoptysis, productive cough, wheezing or other Gastrointestinal Gastrointestinal: Reports melena; Denies abdominal pain, coffee ground emesis, constipation, diarrhea, dyspepsia, hematemesis, hematochezia, loose stools, nausea, vomiting or other Genitourinary Genitourinary: Denies burning urination, difficulty urinating, dysuria, hematuria, nocturia, urinary frequency, urinary hesitancy, urinary incontinence, urinary urgency or other Musculoskeletal Musculoskeletal: Reports back pain; Denies arthralgias, joint pain, joint stiffness, joint swelling, myalgias, neck pain or other Neurologic Neurologic: Denies abnormal gait, abnormal speech, confusion, disequilibrium, dizziness, focal weakness, headache(s), numbness, paresthesias, seizure-like activity, seizures, syncope, tingling, tremor(s) or other Psychiatric Psychiatric: Denies anxiety, depression, homicidal ideation, suicidal ideation or other Endocrine Endocrinology: Denies change in body appearance, cold intolerance, excessive sweating, heat intolerance, polydipsia, polyuria or other Hematologic/Lymphatic Hematologic/Lymphatic: Denies anemia, easy bleeding, easy bruising, lymphadenopathy or other Allergic/Immunologic Allergic/Immunologic: Denies rhinitis, hives, eczemia, asthma or other Vital Signs Vital Signs Vital Signs: 02/28/25 09:22 02/28/25 09:43 Temperature 97.6 F L Temperature Source Temporal Pulse Rate 83 Respiratory Rate 14 Respiratory Pattern Normal Blood Pressure 126/70 H Blood Pressure Mean 88 Pulse Ox 98 Oxygen Delivery Method Room Air Weight Weight: 58.5 kg Body Mass Index (BMI) 22.8 Physical Exam Const alert, oriented x3, average body habitus and well nourished; Negative for no apparent distress or healthy appearing Constitutional Narrative: Sleepy but arousable upper middle-aged, white female, lying in bed, currently mildly uncomfortable from cautery and clipping due to postprocedural abdominal pain, does not appear toxic General Appearance: cooperative HEENT normocephalic and head/scalp atraumatic Eyes Negative for conjunctivae normal Eyes Narrative: No scleral icterus Neck supple Neck Narrative: Trachea midline Resp normal respiratory effort, no retractions, no use of accessory muscles and clear to auscultation bilaterally Auscultation: Negative for rales, rhonchi or wheezes Cardio regular rate, regular rhythm, S1 normal heart sound, S2 normal heart sound, no murmurs, no rub, no gallops and no clicks Cardio Narrative: Intermittent ectopic beat GI normal to inspection, nondistended, normoactive bowel sounds and soft to palpation GI Narrative: Tenderness in the epigastrium Extremity no clubbing, cyanosis or edema Extremity Narrative: 2+ pedal and radial pulses Skin Skin Narrative: Pale Neuro moves all extremities and no focal motor deficits Neuro Narrative: Sleepy due to sedation for procedure Psych affect normal Results Lab / Micro Data 02/28/25 09:40 02/28/25 09:40 Labs: Laboratory Results - last 24 hr 02/28/25 09:40: WBC 5.7, RBC 2.05 L, Hgb 6.7 L, Hct 20.0 L, MCV 97.6, MCH 32.7 H , MCHC 33.5, RDW Std Deviation 48.3 H, RDW Coeff of Yulia 13.6, Plt Count 255, MPV 8.8, Immature Gran % (Auto) 1.200 H, Neut % (Auto) 56.9, Lymph % (Auto) 27.7, M sarah % (Auto) 10.5 H, Eos % (Auto) 3.3, Baso % (Auto) 0.4, Absolute Neuts (auto) 3.3, Absolute Lymphs (auto) 1.58, Nucleated RBC % 0.5, Sodium 136, Potassium 4.2, Chloride 102, Carbon Dioxide 24.3, Anion Gap 9, BUN 34 H, Creatinine 0.82, Estim Creat Clear Calc 58.84, Est GFR (MDRD) Non-Af 81, BUN/Creatinine Ratio 41.6 H, Glucose 107 H, Calcium 8.6, Total Bilirubin 0.20, AST 22, ALT 14, Alkaline Phosphatase 58, Total Protein 5.9, Albumin 3.9, Globulin 2.0 L, Albumin/Globulin Ratio 1.9 02/28/25 10:30: Crossmatch See Detail 02/28/25 11:10: Urine Color Straw, Urine Clarity Clear, Urine pH 6.0, Ur Specific [place] 1.005, Urine Protein Negative, Urine Glucose (UA) Normal, Urine Ketones Negative, Urine Occult Blood Negative, Urine Nitrite Negative, Urine Bilirubin Negative, Urine Urobilinogen Normal, Ur Leukocyte Esterase Negative Assessment & Plan Assessment/Plan (1) GI bleed: (2) Acute anemia: PLAN: Plan Acute Anemia secondary to GI bleed - Suspected upper GI bleed with elevated BUN/creatinine ratio - Protonix bolus and then start Protonix drip - If ulceration is found consider Carafate - Serial hemoglobin - Type and cross/transfuse 2 units packed red blood cells - N.p.o. currently - Hold aspirin -Continue home iron supplementation - GI consultation for endoscopy CAD/hyperlipidemia/hypertension - Antihypertensives on hold currently - Continue statin - Previous stented coronary artery on 06/15/2023 - Aspirin on hold due to the above - Patient is no longer on dual antiplatelet therapy - Last echocardiogram shows an EF of 55 to 60% History of vasovagal syncope -Previous workup with a tilt table test demonstrated and vaso depressive symptoms Thoracic pseudoaneurysm of the aorta - Follows with vascular/thoracic surgery for this - Has been stable with medications History of SVT - Noted on a event monitor from 10/29/2024 - Is supposed to follow-up as an outpatient GERD - Hold home Protonix - Will continue Carafate but do 4 times daily - Workup as above Overactive bladder - Continue home medication Osteoporosis - Continue home vitamin D and calcium supplementation History of tobacco abuse - Remote - Encouraged ongoing cessation DVT prophylaxis - Chemoprophylaxis contraindicated due to GI bleed on presentation - SCDs CODE STATUS Full code Charges/Coding Visit Charges Inpatient E&M: 30731 Init Hosp L2
[2025-02-28 11:30] LABS: Red Blood Cells-Urine 0-5 SEEN /hpf (0-5); Squamous Epithelial Cells - UA 0-5 SEEN /hpf (5-10)
[2025-02-28] MEDS: Pantoprazole Sodium 80 MG in 0.9% Normal Saline (50mL Bag) 15 ML 420 MG IV BOLUS (11:58)
--- NOTE | 2025-02-28 12:59 | PCM.PRE.AN2 ---
ASA Classification* ASA Classification ASA Classification: 3 and E Assessment & Plan Anesthesia* Anesthesia Assessment Anesthesia Assessment: Discussed sedation and/or anesthesia options, risks, benefits, and alternatives with patient/parents/legal guardian/POA. Questions invited. The patient/parents/legal guardian/POA seems to understand and agrees to proceed with anesthesia plan. Reviewed the physical assessment, medical history, allergy history and patient home medications list prior to surgery/procedure/anesthetic and documented any changes. Performed airway and anesthesia risk assessments. Anesthesia Type Anesthesia Type: MAC (patient known CAD/ASHD with hgb 6.7, denies any CP. Oneunit PRBC ready, transfuse LINDA. Will check EKG and run HS troponin from earlier blood draw. if all normal/stable can proceed with egd.) Anesthesia Focused Assessment* Temperature: 97.5 F Pulse Rate: 70 Blood Pressure: 120/72 Respiratory Rate: 16 Pulse Ox: 100 Airway Assessment Mouth opens: >3 cm Mallampati Score: II Labs Anesthesia Preop lab: CBC WBC 5.7 K/mm3 (4.4-11.0) 02/28/25 09:40 02/28/25 RBC 2.05 M/mm3 (4.2-5.4) L 02/28/25 09:40 02/28/25 Hgb 6.7 g/dL (12.0-15.0) L 02/28/25 09:40 02/28/25 Hct 20.0 % (37-47) L 02/28/25 09:40 02/28/25 Plt Count 255 K/mm3 (150-450) 02/28/25 09:40 02/28/25 CHEMISTRY Potassium 4.2 mmol/L (3.3-5.1) 02/28/25 09:40 02/28/25 Sodium 136 mmol/L (133-145) 02/28/25 09:40 02/28/25 Magnesium 2.5 mg/dL (1.6-2.6) 07/26/23 23:10 07/26/23 Phosphorus 3.3 mg/dL (2.5-4.9) 07/27/23 02:11 07/27/23 BUN 34 mg/dL (4-19) H 02/28/25 09:40 02/28/25 Creatinine 0.82 mg/dL (0.70-1.20) 02/28/25 09:40 02/28/25 Glucose 107 mg/dL (70-99) H 02/28/25 09:40 02/28/25 POC Glucose 79 mg/dL (74-106) 07/26/23 19:58 07/26/23 TSH 1.520 uIU/mL (0.300-4.200) 10/26/24 09:12 10/26/24 COAG Pre-Assessment Diagnosis/Proposed Procedure Planned Operative Procedure(s): egd Anesthesia History 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 When Was Last Pacemaker Check QUESTION #4 FULL TEXT: You/Your Family Experience fever (hyperthermia) with Anesthesia Last Oral Intake Last Oral intake: Last Oral Intake NPO since 19:30 02/28/25 12:40 Meds taken in AM with sips of Yes 02/28/25 12:40 water? Meds patient instructed to protonix @0800 02/28/25 12:40 take am of surgery carafate@ 0800 PONV PONV - precision machine operator: PONV - precision machine operator Female HX of Motion Sickness HX of N/V After Surgery Non-Smoker Duration of Surgery greater than 60 minutes Number of Risk Factors PONV Score Height & Weight Height & Weight: Anesthesia: Height & Weight Height 5 ft 3 in 02/28/25 12:40 Weight: 58.06 kg 02/28/25 12:40 Body Mass Index (BMI) 22.6 02/28/25 12:40 Respiratory Assessment Respiratory Assessment - precision machine operator: Respiratory Tract Infection Hx - precision machine operator Hx Respiratory Tract Infection No 06/19/23 10:36 STOP Sleep Apnea STOP Sleep Apnea - precision machine operator: STOP Sleep Apnea - precision machine operator Hx Hypertension Yes 02/28/25 12:09 Hx Sleep Apnea No 02/28/25 12:09 CPAP BIPAP Do you snore loudly (louder No 02/28/25 12:09 than talking or can be heard Do you often feel tired/ No 02/28/25 12:09 fatigued/ sleepy during daytime? Has anyone observed you stop No 02/28/25 12:09 breathing during sleep? STOP Results Negative 02/28/25 12:09 QUESTION #5 FULL TEXT : Do you snore loudly (louder than talking or can be heard through closed doors)? 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 Specify any problems Hx of Preganancy in last 3 No 02/28/25 12:09 Months Nurse Filling Out Transfusion TWOLF 02/28/25 12:09 & Questions: Date: 02/28/25 02/28/25 12:09 Time: 12:10 02/28/25 12:09 Patient unable to answer at this time (ie. confused, unrespo /Reproduction History /Reproductive History - precision machine operator: /Reproductive Hx- precision machine operator Hx Now Gestational Age (in weeks): EDC: Hx Hx Para Hx Section SAB No 06/19/23 10:36 Active Medications Active Medications: Current Medications Generic Name Dose Route Start Last Admin Trade Name Freq PRN Reason Stop Dose Admin Acetaminophen 650 mg 02/28/25 12:08 Acetaminophen 325 Mg Tablet PO Q6H PRN PRN Pain 1-10 Or Fever>100.7 Atorvastatin Calcium 40 mg 02/28/25 22:00 Atorvastatin Calcium 40 Mg Tablet PO QHS [facility] Calcium Carbonate 500 mg 03/01/25 08:00 Calcium (Elemental) 500 Mg Tablet PO DAILYCM [facility] Cholecalciferol 25 mcg 03/01/25 10:00 Cholecalciferol (Vit D3) 25 Mcg Tablet (1,000 Units) PO DAILY [facility] Cyclobenzaprine HCl 10 mg 02/28/25 12:08 Cyclobenzaprine Hcl 10 Mg Tablet PO DAILY PRN muscle spasm Ferrous Sulfate 325 mg 03/01/25 08:00 Ferrous Sulfate 325 Mg Tablet PO QODAY@0800 [facility] Pantoprazole Sodium 80 mg/ 100 mls @ 10 mls/hr 02/28/25 13:00 Sodium Chloride CONT INF Q10H LYNDSEY Sodium Chloride 250 mls @ 15 mls/hr 02/28/25 12:15 IV .[id number] PRN Saline Flush Sodium Chloride 250 mls @ 15 mls/hr 02/28/25 12:15 IV .[id number] PRN Additional IVPB Infusion Magnesium Chloride 128 mg 03/01/25 10:00 Magnesium Chloride 64 Mg Delay Rel.Tablet PO DAILY [facility] Ondansetron HCl 4 mg 02/28/25 12:08 Ondansetron 4 Mg/2 Ml Vial IV Q8H PRN PRN NAUSEA/VOMITING Senna/Docusate Sodium 2 tablet 02/28/25 12:08 Senna/Docusate Sodium 1 Tablet PO BID PRN PRN Constipation Sodium Chloride 10 - 40 ml 02/28/25 12:15 0.9% Saline Lock 10 Ml Syringe IV UD PRN SALINE FLUSH PFSH Medical History AAA (abdominal aortic aneurysm) Palpitations Dyslipidemia Raynauds phenomenon Coronary artery disease Hypokalemia Abnormal findings diagnostic imaging of heart and coronary circulation (06/07/23) Atherosclerotic heart disease of [place] coronary artery without angina pectoris (06/07/23) 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) Anxiety Shortness of breath on exertion History of echocardiogram History of stress test Cardiology follow-up encounter History of irregular heartbeat Guaiac positive stools Abnormal ECG Anemia Blood in stool Pseudoaneurysm of aorta Fatigue Syncope Vitamin D deficiency Major depressive disorder, recurrent episode, in full remission Lightheadedness Numbness and tingling in both hands Bradycardia Wears contact lenses Post-menopausal Excessive bleeding Easy bruising Restless legs Back pain History of IBS Former smoker Encounter for screening for malignant neoplasm of colon Muscle spasm Hyperlipidemia Hypertension Home Medications ?Medication ?Instructions ?Recorded ?Last Taken ?Type magnesium oxide 400 mg PO DAILY 11/12/21 Unknown History cyclobenzaprine 10 mg tablet 10 mg PO DAILY PRN muscle spasm 05/11/23 Unknown History atorvastatin 40 mg tablet 40 mg PO QHS #30 tabs 05/17/23 Unknown Rx cholecalciferol (vitamin D3) 25 25 mcg PO DAILY 05/31/23 Unknown History mcg (1,000 unit) tablet (Vitamin D3) aspirin 81 mg tablet,delayed 81 mg PO DAILY 06/12/23 06/15/23 History release (Adult Aspirin Regimen) calcium carbonate (Calcium 600) 600 mg PO DAILY 02/22/24 Unknown History ferrous sulfate 325 mg (65 mg 325 mg PO Q OTHER DAY 02/22/24 Unknown History iron) tablet (FeroSul) losartan 50 mg tablet 50 mg PO DAILY #90 tabs 06/28/24 Unknown Rx Held on 02/28/25. Instructions: per t report amlodipine 5 mg tablet 5 mg PO DAILY #90 tabs 02/19/25 Unknown Rx Held on 02/28/25. Instructions: per pt preport pantoprazole 40 mg tablet,delayed 40 mg PO BID 02/28/25 Unknown History release sucralfate 1 gram tablet 1 g PO BID 02/28/25 Unknown History vibegron 75 mg tablet (Gemtesa) 75 mg PO DAILY 02/28/25 Unknown History Allergy/AdvReac Type Severity Reaction Status Date / Time No Known Allergies Allergy Verified 02/28/25 09:22 Family History (Reviewed 12/02/24 @ 15:38 by Iva Calhoun AMPHIBIOUS OPERATIONS OFFICER, AMPHIBIOUS OPERATIONS OFFICER-C) Mother Hypertension Cancer Arthritis CVA (cerebral vascular accident) Stomach ulcer Father Cancer bladder Grandmother Cancer Uncle Prostate carcinoma Surgical History Stented coronary artery (06/15/23) Hx of hysterectomy Hx of colonoscopy Social History household members: spouse Smoking Status: Former smoker alcohol intake: former year quit: 1990 substance use type: does not use caffeine: Yes Type: carbonated beverages Number of servings: 1 Review of Systems (Anesthesia) ROS Narrative System reviewed and no additional complaints, except as documented.
--- NOTE | 2025-02-28 13:01 | EX.PCM.CON.G ---
HPI Consult Data Date of Consult: 02/28/25 HPI Narrative Reason for Consultation: Anemia HPI Narrative: PORTER MUSA, is a 64-year-old female presenting to the emergency department for generalized fatigue, mild shortness of breath and abnormal outpatient hemoglobin. 64-year-old female with a history of coronary artery disease and peripheral artery disease reports increasing fatigue over the past several months. She notes she has less energy for her usual activities, and finds herself more short of breath with mild exertion. Symptoms are progressive. Patient denies overt signs of bleeding, such as black, tarry stools, or excessive bruising. Patient states that on Monday she was having similar symptoms, she went to [facility] emergency department where her hemoglobin was tested and it dropped from 11 to 7. She got 1 unit of PRBC and was observed overnight. She does report that she was fecal occult that was positive. She states that over the past few days she has continued to notice melanotic stool as well as generalized fatigue. She Denies tobacco or illicit drug use. Occasional alcohol use. [facility] Medical History AAA (abdominal aortic aneurysm) Palpitations Dyslipidemia Raynauds phenomenon Coronary artery disease Hypokalemia Abnormal findings diagnostic imaging of heart and coronary circulation (06/07/23) Atherosclerotic heart disease of [place] coronary artery without angina pectoris (06/07/23) 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) Anxiety Shortness of breath on exertion History of echocardiogram History of stress test Cardiology follow-up encounter History of irregular heartbeat Guaiac positive stools Abnormal ECG Anemia Blood in stool Pseudoaneurysm of aorta Fatigue Syncope Vitamin D deficiency Major depressive disorder, recurrent episode, in full remission Lightheadedness Numbness and tingling in both hands Bradycardia Wears contact lenses Post-menopausal Excessive bleeding Easy bruising Restless legs Back pain History of IBS Former smoker Encounter for screening for malignant neoplasm of colon Muscle spasm Hyperlipidemia Hypertension Home Medications ?Medication ?Instructions ?Recorded ?Last Taken ?Type magnesium oxide 400 mg PO DAILY 11/12/21 Unknown History cyclobenzaprine 10 mg tablet 10 mg PO DAILY PRN muscle spasm 05/11/23 Unknown History atorvastatin 40 mg tablet 40 mg PO QHS #30 tabs 05/17/23 Unknown Rx cholecalciferol (vitamin D3) 25 25 mcg PO DAILY 05/31/23 Unknown History mcg (1,000 unit) tablet (Vitamin D3) aspirin 81 mg tablet,delayed 81 mg PO DAILY 06/12/23 06/15/23 History release (Adult Aspirin Regimen) calcium carbonate (Calcium 600) 600 mg PO DAILY 02/22/24 Unknown History ferrous sulfate 325 mg (65 mg 325 mg PO Q OTHER DAY 02/22/24 Unknown History iron) tablet (FeroSul) losartan 50 mg tablet 50 mg PO DAILY #90 tabs 06/28/24 Unknown Rx Held on 02/28/25. Instructions: per t report amlodipine 5 mg tablet 5 mg PO DAILY #90 tabs 02/19/25 Unknown Rx Held on 02/28/25. Instructions: per pt preport pantoprazole 40 mg tablet,delayed 40 mg PO BID 02/28/25 Unknown History release sucralfate 1 gram tablet 1 g PO BID 02/28/25 Unknown History vibegron 75 mg tablet (Gemtesa) 75 mg PO DAILY 02/28/25 Unknown History Allergy/AdvReac Type Severity Reaction Status Date / Time No Known Allergies Allergy Verified 02/28/25 09:22 Family History Mother Hypertension Cancer Arthritis CVA (cerebral vascular accident) Stomach ulcer Father Cancer bladder Grandmother Cancer Uncle Prostate carcinoma Surgical History Stented coronary artery (06/15/23) Hx of hysterectomy Hx of colonoscopy Social History household members: spouse Smoking Status: Former smoker alcohol intake: former year quit: 1990 substance use type: does not use caffeine: Yes Type: carbonated beverages Number of servings: 1 ROS Constitutional Constitutional: Denies fatigue, fever(s), poor appetite, weight gain or weight loss Gastrointestinal Gastrointestinal: Denies belching, bloating, change in bowel habits, change in stool character, chewing difficulty, coffee ground emesis, constipation, cramping, diarrhea, dyspepsia, dysphagia, early satiety, excessive flatus, fecal incontinence, heartburn, hematemesis, hematochezia, hemorrhoids, loose stools, melena, nausea, odynophagia, rectal bleeding, tenesmus, vomiting or weight changes Physical Exam Const alert, oriented x3, no apparent distress and healthy appearing General Appearance: cooperative GI normal to inspection, nondistended, normoactive bowel sounds, soft to palpation, non-tender and non-distended Percussion: normal to percussion Rectal Exam: deferred Lab / Micro Data 02/28/25 09:40 02/28/25 09:40 Labs: Laboratory Results - last 24 hr 02/28/25 09:40: WBC 5.7, RBC 2.05 L, Hgb 6.7 L, Hct 20.0 L, MCV 97.6, MCH 32.7 H, MCHC 33.5, RDW Std Deviation 48.3 H, RDW Coeff of [place]ul[place] 13.6, Plt Count 255, MPV 8.8, Immature Gran % (Auto) 1.200 H, Neut % (Auto) 56.9, Lymph % (Auto) 27.7, [place] % (Auto) 10.5 H, Eos % (Auto) 3.3, Baso % (Auto) 0.4, Absolute Neuts (auto) 3.3, Absolute Lymphs (auto) 1.58, Nucleated RBC % 0.5, Sodium 136, Potassium 4.2, Chloride 102, Carbon Dioxide 24.3, Anion Gap 9, BUN 34 H, Creatinine 0.82, Estim Creat Clear Calc 58.84, Est GFR (MDRD) Non-Af 81, BUN/Creatinine Ratio 41.6 H, Glucose 107 H, Calcium 8.6, Total Bilirubin 0.20, AST 22, ALT 14, Alkaline Phosphatase 58, Total Protein 5.9, Albumin 3.9, Globulin 2.0 L, Albumin/Globulin Ratio 1.9 02/28/25 10:30: Blood Type O POSITIVE, Antibody Screen NEGATIVE, Crossmatch See Detail 02/28/25 11:10: Urine Color Straw, Urine Clarity Clear, Urine pH 6.0, Ur Specific [place] 1.005, Urine Protein Negative, Urine Glucose (UA) Normal, Urine Ketones Negative, Urine Occult Blood Negative, Urine Nitrite Negative, Urine Bilirubin Negative, Urine Urobilinogen Normal, Ur Leukocyte Esterase Negative, Urine RBC 0-5 SEEN, Urine WBC 0 SEEN, Ur Squamous Epith Cells 0-5 SEEN, Urine Bacteria 0 SEEN, Urine Mucus 0 SEEN Assessment & Plan Assessment/Plan (1) Acute anemia: (2) GI bleed: PLAN: Anemia of unknown etiology:?Patient is a 64-year-old female with significant fatigue and a severe drop in hemoglobin from 12 to 6.6 g/dL. This finding warrants immediate and thorough investigation. Anemia is common in patients with CAD and PAD and is an independent predictor of worse cardiovascular outcomes. The degree of anemia can worsen myocardial ischemia, especially with the patient's existing cardiovascular disease. Differential Diagnosis for Severe Anemia: Chronic Gastrointestinal Bleeding:?The most likely etiology for iron-deficiency anemia in an elderly patient is chronic GI blood loss, which can be exacerbated by long-term ASA use. Anemia of Chronic Disease/Inflammation:?Chronic inflammation from her underlying cardiovascular disease can contribute to anemia by disrupting iron metabolism and blunting the bone marrow's response to erythropoietin. Chronic Kidney Disease ?A decline in kidney function with age can decrease erythropoietin production, leading to anemia. Nutritional Deficiencies:?Deficiencies in iron, Vitamin B12, or folate can cause anemia. Hematologic Malignancy (e.g., Myelodysplastic Syndrome):?While less common, this should be considered in the workup of unexplained anemia in an elderly patient.? Diagnostics: Initial labs:?Order a full iron panel (serum iron, ferritin, total iron-binding capacity, transferrin saturation), a Reticulocyte Count, and vitamin B12 and folate levels. Further workup for GI bleeding:?Strongly consider fecal occult blood testing and endoscopic evaluation (upper endoscopy +/- colonoscopy), given the long-term ASA use and severe anemia. Investigate other etiologies:?If initial workup is non-revealing, further studies may include evaluating for renal function (serum creatinine, estimated GFR) and inflammatory markers. Therapeutic Interventions: Blood Transfusion:?Given the hemoglobin of 6.6 g/dL, a blood transfusion is likely indicated to manage symptoms of fatigue and prevent worsening cardiac ischemia. Transfusion thresholds for patients with underlying cardiac disease need careful consideration. Medication Management:?Review ASA therapy. While critical for her CAD/PAD, it's a likely contributing factor to potential GI bleeding. Discuss risks/benefits and consider alternatives or adjuncts (e.g., proton pump inhibitor) with the patient after diagnostic workup. Supplementation:?Initiate iron and/or vitamin supplementation based on lab results. Charges/Coding Visit Charges Inpatient E&M: 58956 Init Hosp L3
--- NOTE | 2025-02-28 13:05 | EKG12_ITS ---
Test Reason : PREOP Blood Pressure : */* mmHG Vent. Rate : 67 BPM Atrial Rate : 67 BPM P-R Int : 178 ms QRS Dur : 82 ms QT Int : 436 ms P-R-T Axes : 73 19 105 degrees QTcB Int : 460 ms Normal sinus rhythm Low voltage QRS Septal infarct , age undetermined ST & T wave abnormality, consider lateral ischemia Abnormal ECG No previous ECGs available Confirmed by Ed Leyva ([id number]), video tape editor LAUREN MERAZ ([id number]) on 03/04/2025 11:14:35 AM Referred By: RAD Confirmed By: Ed Leyva
[2025-02-28 14:07] LABS: Troponin T High Sensitivity 11 ng/L (<=14)
[2025-02-28] MEDS: Epinephrine (1 mg/ml) 1 MG/ML VIAL (15:03)
[2025-02-28] MEDS: 0.9% Normal Saline (Pres. free 10 ML Vial (15:04)
--- NOTE | 2025-02-28 15:17 | PCM.POST.ANE ---
Anesthesia: Postop Eval I Current Vital Signs Temperature: 98.3 F Pulse Rate: 85 Blood Pressure: 90/69 Respiratory Rate: 18 Pulse Ox: 95 Assessment Airway patent: Yes Spontaneous unlabored respirations: Yes nausea: No Vomiting: No Anesthesia Complication: No Fluid Hydration Crystalloid volume administer (ml): 300 Total IV fluid infused: 300 Progress Note Anesthesia document: Postop Eval 1 completed: Yes
--- NOTE | 2025-02-28 15:29 | POSTOPAN2_ITS ---
Anesthesia Postop Eval I Sum Postop Eval Completion status Anesthesia document: Postop Eval 1 completed: Yes Anesthesia Postop Eval I Summary Anesthesia Postop Eval I Summary: Anesthesia Postop Eval I: Assessment Summary Airway patent Yes 02/28/25 15:17 SIGN ERECTOR.CSIR Spontaneous unlabored Yes 02/28/25 15:17 SIGN ERECTOR.CSIR respirations Mental status nausea No 02/28/25 15:17 SIGN ERECTOR.CSIR Vomiting No 02/28/25 15:17 SIGN ERECTOR.CSIR Anesthesia Postop Eval I: Fluid Summary Crystalloid volume administer 300 02/28/25 15:17 SIGN ERECTOR.CSIR (ml) Colloids volume administered ( ml) Blood Product volume administered (ml) Total IV fluid infused 300 02/28/25 15:17 SIGN ERECTOR.CSIR Anesthesia Postop Eval I: Summary Notes Anesthesia Complication No 02/28/25 15:17 SIGN ERECTOR.CSIR Anesthesia Complication Comment: Post-operative progress note Anesthesia: Postop Eval II Evaluation Mental status: Awake Pain Level: 0 nausea: No Vomiting: No
--- NOTE | 2025-02-28 15:29 | PCM.POSTANE2 ---
Anesthesia Postop Eval I Sum Postop Eval Completion status Anesthesia document: Postop Eval 1 completed: Yes Anesthesia Postop Eval I Summary Anesthesia Postop Eval I Summary: Anesthesia Postop Eval I: Assessment Summary Airway patent Yes 02/28/25 15:17 AGRICULTURE MANAGER.CSIR Spontaneous unlabored Yes 02/28/25 15:17 AGRICULTURE MANAGER.CSIR respirations Mental status nausea No 02/28/25 15:17 AGRICULTURE MANAGER.CSIR Vomiting No 02/28/25 15:17 AGRICULTURE MANAGER.CSIR Anesthesia Postop Eval I: Fluid Summary Crystalloid volume administer 300 02/28/25 15:17 AGRICULTURE MANAGER.CSIR (ml) Colloids volume administered ( ml) Blood Product volume administered (ml) Total IV fluid infused 300 02/28/25 15:17 AGRICULTURE MANAGER.CSIR Anesthesia Postop Eval I: Summary Notes Anesthesia Complication No 02/28/25 15:17 AGRICULTURE MANAGER.CSIR Anesthesia Complication Comment: Post-operative progress note Anesthesia: Postop Eval II Evaluation Mental status: Awake Pain Level: 0 nausea: No Vomiting: No
[2025-02-28] MEDS: fentaNYL 100 MCG/2 ML Ampul 25 MCG IV (15:32)
--- NOTE | 2025-02-28 15:44 | SUR.PHASEI ---
H&H sent to lab
[2025-02-28 16:08] LABS: Hematocrit 21.1 % (37-47); Hemoglobin 7.0 g/dL (12.0-15.0)
[2025-02-28] MEDS: Pantoprazole Sodium 80 MG in 0.9% Normal Saline (100mL Bag) 80 ML 10 MG CONT INF (16:15)
[2025-02-28] MEDS: Lidocaine 2% Viscous15 ML UDC 15 ML PO (16:23)
[2025-02-28 21:27] LABS: Hematocrit 25.5 % (37-47); Hemoglobin 8.9 g/dL (12.0-15.0)
[2025-03-01 00:49] LABS: Hematocrit 23.5 % (37-47); Hemoglobin 8.2 g/dL (12.0-15.0)
[2025-03-01] MEDS: Pantoprazole Sodium 80 MG in 0.9% Normal Saline (100mL Bag) 80 ML 10 MG CONT INF (01:10)
[2025-03-01 04:00] VITALS: BP 110/62; PULSE 54; RESP 16; TEMP 36.7; O2SAT 94
[2025-03-01 05:43] VITALS: BMI 22.6
[2025-03-01 07:18] LABS: Hematocrit 26.5 % (37-47); Hemoglobin 9.0 g/dL (12.0-15.0); Immature Granulocytes Count 0.050 X10^3/uL (0.0-0.0); Mean Corp Hgb Conc 34.0 g/dL (32-36); Mean Corpuscular Volume 94.0 fL (81-99); Mean Platelet Vol. 8.5 fl (6.2-12.0); NRBC Flagged by Analyzer 0 % (0-5); Platelet Count 238 K/mm3 (150-450); RBC Distribution Width CV 14.9 % (11.6-14.6); RBC Distribution Width SD 50.8 fl (35.1-43.9); Red Blood Count 2.82 M/mm3 (4.2-5.4); White Blood Count 5.8 K/mm3 (4.4-11.0)
[2025-03-01 07:23] VITALS: PULSE 80
[2025-03-01 07:26] VITALS: BP 112/53; PULSE 56; RESP 18; TEMP 36.9; O2SAT 100
[2025-03-01 07:42] LABS: Magnesium 2.3 mg/dL (1.5-2.2)
[2025-03-01 07:52] LABS: AST(SGOT) 23 U/L (<=31); Alanine Aminotransfer ALT/SGPT 12 U/L (<=34); Albumin, Serum 3.7 g/dL (3.4-4.8); Alkaline Phosphatase 56 U/L (35-104); Anion Gap 8 (5-15); BUN 18 mg/dL (4-19); BUN/Creat Ratio 20.7 RATIO (10-20); Calcium,Total 8.7 mg/dL (7.6-11.0); Carbon Dioxide 26.8 mmol/L (21.0-32.0); Chloride 105 mmol/L (98-108); Estimated Creatinine Clearance 55.46 ml/min (50-250); Globulin 2.1 g/dL (2.2-4.2); Glucose 100 mg/dL (70-99); Potassium 4.2 mmol/L (3.3-5.1)
--- NOTE | 2025-03-01 09:32 | PCM.DC.SUM ---
Providers Date of Admission: 02/28/25 Date of Discharge: 03/01/25 Primary Care Physician: Dr. Renato Bonilla MD Consultations 02/28/25 12:08 Consult: Gastroenterology Routine Consulting Provider: Kamaljit Gastroenterology Reason for Consult: GI bleed EMERGENT Consult: No MD Notified: Yes Date Notified: 02/28/25 Time Notified: 11:30 Method of Notification: ED Physician Initiated Reason For Visit: ACUTE ANEMIA 2/2 GIB Diagnosis Discharge Diagnosis (1) GI bleed: Status: Acute Code(s): K92.2 - Gastrointestinal hemorrhage, unspecified (2) Acute anemia: Status: Acute Code(s): D64.9 - Anemia, unspecified Medications at Discharge Home Medications magnesium oxide 400 mg PO DAILY 11/12/21 cyclobenzaprine 10 mg tablet 10 mg PO DAILY PRN muscle spasm 05/11/23 atorvastatin 40 mg tablet 40 mg PO QHS #30 tabs 05/17/23 cholecalciferol (vitamin D3) 25 mcg (1,000 unit) tablet (Vitamin D3) 25 mcg PO DAILY 05/31/23 aspirin 81 mg tablet,delayed release (Adult Aspirin Regimen) 81 mg PO DAILY 06/12/23 Held on 03/01/25. Instructions: Resume on 04/02/25. Please hold for 1 month to allow the your stomach ulcer to heal. calcium carbonate (Calcium 600) 600 mg PO DAILY 02/22/24 ferrous sulfate 325 mg (65 mg iron) tablet (FeroSul) 325 mg PO Q OTHER DAY 02/22/24 losartan 50 mg tablet 50 mg PO DAILY #90 tabs 06/28/24 Held on 03/01/25. Instructions: Resume on 03/17/25. amlodipine 5 mg tablet 5 mg PO DAILY #90 tabs 02/19/25 Held on 03/01/25. Instructions: Resume on 03/17/25. vibegron 75 mg tablet (Gemtesa) 75 mg PO DAILY 02/28/25 pantoprazole 40 mg tablet,delayed release 40 mg PO BID 90 days #180 tabs 03/01/25 sucralfate 1 gram tablet 1 g PO TID 30 days #90 tabs 03/01/25 Hospital Course Operations None Procedures EGD Summary of Care Provided Minutes Spent on Discharge: 35 Hospital Course: Patient is a 64-year-old female who presented to [facility] ED on 02/28/2025 with fatigue and dark stools. Short hospital course as noted below. Patient discharged home in stable condition on 03/01. 1. Acute blood loss anemia secondary to upper GI bleed from peptic ulcer disease ? GI followed. Hemoglobin 6.7 on admit, down from baseline of 11-12. Hemoglobin notably was 11.5 only 4 days prior. EGD on 02/28 showed a gastric ulcer with a pumping vessel; 3 clips placed, plasma coagulation used and was also injected with epinephrine. Given 2 units of blood and hemoglobin stable at 9.0 on 03/01. Initiated on diet on evening of 02/28 and tolerated without issue. Per GI, will treat with p.o. PPI twice daily for at least 3 months and sucralfate 3 times daily with meals for 1 month. Will hold home baby aspirin for 1 month. Continue iron supplement. Outpatient follow-up with GI as needed. 2. History of CAD with stenting, hypertension, hyperlipidemia, history of SVT ? Had stenting x 1 done in June 2023. Blood pressure low normal during hospitalization. Last echo notably showed EF 55 to 60%. Will hold baby aspirin for 1 month on discharge due to severe GI bleed as above. Will hold home amlodipine and losartan on discharge for now; recommend close outpatient follow-up with PCP and can resume when able. Continue home statin. Chronic medical conditions: ? Overactive bladder: Continue home medication. ? Osteoporosis: Continue home vitamin D and calcium supplementation. ? History of vasovagal syncope: Noted on previous tilt table test. Outpatient management. ? History of thoracic pseudoaneurysm of the aorta: Outpatient follow-up with vascular/thoracic surgery. ? History of tobacco abuse: Encouraged continued cessation. Total clinical time spent by myself addressing the patient's medical issues, reviewing all the data, and collaborating with patient's care team: 35 minutes. Physical Exam Const alert, oriented x3, no apparent distress, average body habitus, healthy appearing and well nourished Constitutional Narrative: Pleasant middle-age female, good energy level, sitting back comfortably in bed, conversing normally, in no acute distress. General Appearance: cooperative, comfortable, well kempt and well developed HEENT normocephalic, head/scalp atraumatic, hearing grossly normal bilaterally, nasal mucous membranes and turbinates normal and moist oral mucous membranes Eyes PERRL, EOMs intact bilaterally and conjunctivae normal Neck full ROM Chest inspection of chest normal Resp normal respiratory effort, normal air movement, no use of accessory muscles and clear to auscultation bilaterally Cardio regular rate, regular rhythm, no murmurs and peripheral pulses 2+ throughout GI normal to inspection, nondistended, normoactive bowel sounds, soft to palpation, non-tender and non-distended Back/Spine normal ROM Extremity normal to inspection, full ROM and no pedal edema Skin no rashes or lesions noted Psych mental status grossly normal Weight / BMI Weight Weight: 58.1 kg Body Mass Index (BMI) 22.6 ABG / Lab / Microbiology Data 03/01/25 07:07 03/01/25 07:07 Laboratory: Laboratory Results - last 24 hr 02/28/25 10:30: Blood Type O POSITIVE, Antibody Screen NEGATIVE, Crossmatch See Detail 02/28/25 10:30: Crossmatch See Detail 02/28/25 11:10: Urine Color Straw, Urine Clarity Clear, Urine pH 6.0, Ur Specific Howell 1.005, Urine Protein Negative, Urine Glucose (UA) Normal, Urine Ketones Negative, Urine Occult Blood Negative, Urine Nitrite Negative, Urine Bilirubin Negative, Urine Urobilinogen Normal, Ur Leukocyte Esterase Negative, Urine RBC 0-5 SEEN, Urine WBC 0 SEEN, Ur Squamous Epith Cells 0-5 SEEN, Urine Bacteria 0 SEEN, Urine Mucus 0 SEEN 02/28/25 13:12: Troponin T High Sens 11 02/28/25 15:37: Hgb 7.0 L, Hct 21.1 L 02/28/25 20:50: Hgb 8.9 L, Hct 25.5 L 03/01/25 00:40: Hgb 8.2 L, Hct 23.5 L 03/01/25 07:07: WBC 5.8, RBC 2.82 L, Hgb 9.0 L, Hct 26.5 L, MCV 94.0, MCH 31.9, MCHC 34.0, RDW Std Deviation 50.8 H, RDW Coeff of Yulia 14.9 H, Plt Count 238, MPV 8.5, Immature Gran % (Auto) 0.900, Neut % (Auto) 53.9, Lymph % (Auto) 27.0, [place] % (Auto) 12.2 H, Eos % (Auto) 5.7 H, Baso % (Auto) 0.3, Absolute Neuts (auto) 3.1, Absolute Lymphs (auto) 1.57, Nucleated RBC % 0, Sodium 140, Potassium 4.2, Chloride 105, Carbon Dioxide 26.8, Anion Gap 8, BUN 18, Creatinine 0.87, Estim Creat Clear Calc 55.46, Est GFR (MDRD) Non-Af 75, BUN/Creatinine Ratio 20.7 H, Glucose 100 H, Calcium 8.7, Phosphorus 3.2, Magnesium 2.3 H, Total Bilirubin 0.31, AST 23, ALT 12, Alkaline Phosphatase 56, Total Protein 5.8 L, Albumin 3.7, Globulin 2.1 L, Albumin/Globulin Ratio 1.7 D/C Instructions DC O2, CPAP, BIPAP Needs Home O2 Discharge instructions: No Meaningful Use Info Meaningful Use Meaningful Use Diagnoses (Choose all that apply): None applicable Discharge Plan Admission Admit Date/Time: 02/28/25 11:27 Primary Reason for Your Visit: fatigue and dark stools Attending Provider: Ruben Whitley Primary Care Provider: Renato Bonilla Chi Consulting Providers: Erik Hylton; José Luis Leach; Melinda Cummings; Niecy Radford; Yuki Tinajero; Tracy Chow Instructions Additional Instructions / Restrictions: Please start taking the following medications: ? Pantoprazole 40 mg twice daily ? Sucralfate 1 g 3 times daily before meals for 1 month Please hold the following medications: ? Aspirin: Hold on taking this for 1 month to allow your stomach ulcer to heal ? Amlodipine and losartan: Your blood pressures were in low normal range here. Hold on taking these blood pressure medications until follow-up with your primary care doctor. Please call the GI office soon to schedule a follow-up appointment. Discharge Orders/Prescriptions Prescriptions: Continued magnesium oxide 400 mg magnesium tablet 400 mg PO DAILY cyclobenzaprine 10 mg tablet 10 mg PO DAILY PRN (Reason: muscle spasm) atorvastatin 40 mg tablet 40 mg PO QHS Qty: 30 2RF calcium carbonate [Calcium 600] 600 mg calcium (1,500 mg) tablet 600 mg PO DAILY ferrous sulfate [FeroSul] 325 mg (65 mg iron) tablet 325 mg PO Q OTHER DAY cholecalciferol (vitamin D3) [Vitamin D3] 25 mcg (1,000 unit) tablet 25 mcg PO DAILY Gemtesa 75 mg tablet 75 mg PO DAILY pantoprazole 40 mg tablet,delayed release (DR/EC) 40 mg PO BID 90 Days Qty: 180 0RF Changed sucralfate 1 gram tablet 1 g PO TID 30 Days Qty: 90 0RF Held aspirin [Adult Aspirin Regimen] 81 mg tablet,delayed release (DR/EC) 81 mg PO DAILY Hold Instructions: Resume on 04/02/25. Please hold for 1 month to allow the your stomach ulcer to heal. losartan 50 mg tablet 50 mg PO DAILY Qty: 90 3RF Hold Instructions: Resume on 03/17/25. amlodipine 5 mg tablet 5 mg PO DAILY Qty: 90 3RF Hold Instructions: Resume on 03/17/25. Referrals / Follow Up: José Luis Leach DO [Med Staff - Active Staff] - Renato Bonilla Chi, MD [Primary Care Provider] - Disposition Disposition (needs filled in before D/C Order can be placed): Home, Self Care Charges/Coding Visit Charges Inpatient E&M: 98294 Disch Hosp >30min
[2025-03-01] MEDS: Cholecalciferol (VIT D3) 25 MCG TABLET (1,000 UNITS) PO (09:54)
[2025-03-01] MEDS: Magnesium Chloride 64 MG Delay Rel.Tablet 128 MG PO (09:54)
[2025-03-01] MEDS: 0.9% Saline Lock 10 ML Syringe IV (09:54)
[2025-03-01] MEDS: Calcium (Elemental) 500 MG Tablet PO (09:55)
--- NOTE | 2025-03-01 11:00 | CASEMGMT ---
Dx:acute anemia 2/2 GIB LACE:2 6-Clicks:24 Medical record reviewed and patient evaluated for identification of discharge planning needs. Based on this review, at this time criteria are not present to indicate a need for discharge planning. Will remain available to assist with discharge planning needs as identified or requested. Pt has dc order placed.
[2025-03-01 12:53] VITALS: BP 120/62; PULSE 56; RESP 18; TEMP 36.9; O2SAT 100
--- NOTE | 2025-03-04 13:54 | OP.EGD_ITS ---
Patient Name: Amie Ryan Procedure Date: 02/28/2025 12:36 PM Date of : 1960 Age: 64 Procedure: Upper GI endoscopy Indications: Melena Providers: José Luis Leach DO Medicines: Monitored Anesthesia Care Patient Profile: This is a 64 year old female. Refer to note in patient chart for documentation of history and physical. Patient has symptoms of acute epigastric abdominal pain. Complications: No immediate complications. Procedure: Pre-Anesthesia Assessment: - Prior to the procedure, a History and Physical was performed, and patient medications and allergies were reviewed. The patient is competent. The risks and benefits of the procedure and the sedation options and risks were discussed with the patient. All questions were answered and informed consent was obtained. Patient identification and proposed procedure were verified by the physician in the pre-procedure area. Mental Status Examination: alert and oriented. Airway Examination: normal oropharyngeal airway and neck mobility. Respiratory Examination: clear to auscultation. CV Examination: normal. Prophylactic Antibiotics: The patient does not require prophylactic antibiotics. Prior Anticoagulants: The patient has taken no anticoagulant or antiplatelet agents except for NSAID medication. ASA Grade Assessment: II - A patient with mild systemic disease. After reviewing the risks and benefits, the patient was deemed in satisfactory condition to undergo the procedure. The anesthesia plan was to use monitored anesthesia care (MAC). Immediately prior to administration of medications, the patient was re-assessed for adequacy to receive sedatives. The heart rate, respiratory rate, oxygen saturations, blood pressure, adequacy of pulmonary ventilation, and response to care were monitored throughout the procedure. The physical status of the patient was re-assessed after the procedure. After obtaining informed consent, the endoscope was passed under direct vision. Throughout the procedure, the patient's blood pressure, pulse, and oxygen saturations were monitored continuously. The Endoscope was introduced through the mouth, and advanced to the fourth part of the duodenum. Small bowel enteroscopy was deemed necessary. The upper GI endoscopy was accomplished without difficulty. The patient tolerated the procedure well. Scope In: 2:46:01 PM Scope Out: 3:07:08 PM Total Procedure Duration Time 0 hours 21 minutes 7 seconds Findings: The examined esophagus was normal. Three non-bleeding cratered gastric ulcers with a visible vessel were found in the gastric antrum. The largest lesion was 20 mm in largest dimension. For hemostasis, three hemostatic clips were successfully placed. Clip pan washer: InComm. There was no bleeding at the end of the procedure. Area was successfully injected with 10 mL of a 0.1 mg/mL solution of epinephrine for drug delivery. Coagulation for destruction of remaining portion of lesion using argon plasma at 0.4 liters/minute and 20 steve was successful. Estimated blood loss was minimal. No gross lesions were noted in the entire examined duodenum. Impression: - Normal esophagus. - Non-bleeding gastric ulcers with a visible vessel. Clips were placed. Clip pan washer: InComm. Injected. Treated with argon plasma coagulation (APC). - No gross lesions in the entire examined duodenum. - No specimens collected. Recommendation: - Discharge patient to home. - Resume previous diet. - Continue present medications. - The patient is not currently taking anticoagulant or antiplatelet agents except for aspirin and NSAID medication. - Repeat upper endoscopy in 3 months for surveillance. Procedure Code(s): --- Professional --- 87137, Small intestinal endoscopy, enteroscopy beyond second portion of duodenum, not including ileum; with ablation of tumor(s), polyp(s), or other lesion(s) not amenable to removal by hot biopsy forceps, bipolar cautery or snare technique 46201, 59,51, Small intestinal endoscopy, enteroscopy beyond second portion of duodenum, not including ileum; with control of bleeding (eg, injection, bipolar cautery, unipolar cautery, laser, heater probe, stapler, plasma criminal investigator) 85425, Unlisted procedure, small intestine CPT copyright 2021 [employer]. All rights reserved. The codes documented in this report are preliminary and upon jury consultant review may be revised to meet current compliance requirements. José Luis Leach DO 03/04/2025 1:54:13 PM This report has been signed electronically. Number of Addenda: 0 Note Initiated On: 02/28/2025 12:36 PM
--- NOTE | 2025-03-04 13:54 | OP.PROVAT_ITS ---
03/04/2025 Renato Bonilla MD [address] [place] [address] Re : Upper GI endoscopy procedure for Amie Ryan Dear Dr. Bonilla This procedure was performed on Friday, February 28, 2025. My impressions and recommendations are as follows: Impressions : - Normal esophagus. - Non-bleeding gastric ulcers with a visible vessel. Clips were placed. Clip wine bottle inspector: Loopcam. Injected. Treated with argon plasma coagulation (APC). - No gross lesions in the entire examined duodenum. - No specimens collected. Recommendations : - Discharge patient to home. - Resume previous diet. - Continue present medications. - The patient is not currently taking anticoagulant or antiplatelet agents except for aspirin and NSAID medication. - Repeat upper endoscopy in 3 months for surveillance. My findings are described in the full procedure note, which is enclosed. If I can be of further assistance, please feel free to contact me at . Sincerely, José Luis Leach, 03/04/2025 1:54:13 PM This report has been signed electronically.
== END 2025-03-01 13:45 | disposition home or self-care (01) | DRG 378 ==
LOC: ED 10:06 → MS3 11:44
PROVIDERS: Anesthesiology; Internal Medicine Gastroenterology; Admitting Provider Internal Medicine; Emergency Provider Student in an Organized Health Care Education/Training Program; PCP Family Medicine Geriatric Medicine; Visit Provider Hospitalist
PROC: 0DJ08ZZ Inspection of Upper Intestinal Tract, Via Natural or Artificial Opening Endoscopic (ICD-10-PCS; CPT 43235; principal; 2025-02-28 12:40)
DX: K25.4 Chronic or unspecified gastric ulcer with hemorrhage (principal); D62 Acute posthemorrhagic anemia; E78.5 Hyperlipidemia, unspecified; I73.9 Peripheral vascular disease, unspecified; I10 Essential (primary) hypertension; K21.9 Gastro-esophageal reflux disease without esophagitis; I25.10 Atherosclerotic heart disease of native coronary artery without angina pectoris; I71.20 Thoracic aortic aneurysm, without rupture, unspecified; Z90.710 Acquired absence of both cervix and uterus; Z95.5 Presence of coronary angioplasty implant and graft; Z87.891 Personal history of nicotine dependence; M81.0 Age-related osteoporosis without current pathological fracture; Z79.82 Long term (current) use of aspirin; N32.81 Overactive bladder
CPT/HCPCS: 36415; 80053; 81001; 83735; 84100; 84484; 85014; 85018; 85025; 86850; 86900; 86901; 86920; 93005; 94668; 99284; C1889; P9016; A4216; J2405

== ENCOUNTER → 2025-03-06 | Outpatient (CLI) | payer OTHER, SELFPAY ==
[2025-03-06 17:09] LABS: Hematocrit 25.8 % (37-47); Hemoglobin 8.5 g/dL (12.0-15.0); Immature Granulocytes Count 0.010 X10^3/uL (0.0-0.0); Mean Corp Hgb Conc 32.9 g/dL (32-36); Mean Corpuscular Volume 96.3 fL (81-99); Mean Platelet Vol. 8.4 fl (6.2-12.0); NRBC Flagged by Analyzer 0 % (0-5); Platelet Count 316 K/mm3 (150-450); RBC Distribution Width CV 14.5 % (11.6-14.6); RBC Distribution Width SD 50.0 fl (35.1-43.9); Red Blood Count 2.68 M/mm3 (4.2-5.4); White Blood Count 4.2 K/mm3 (4.4-11.0)
== END | disposition home or self-care (01) ==
LOC: POLAB3 16:55
PROVIDERS: PCP Family Medicine Geriatric Medicine; Visit Provider Family Medicine Geriatric Medicine
DX: I10 Essential (primary) hypertension (principal)
CPT/HCPCS: 36415; 85025

== ENCOUNTER → 2025-03-07 | Outpatient (CLI) | payer OTHER, SELFPAY | END | disposition home or self-care (01) | LOC: LABSPEC 12:03 | PROVIDERS: PCP Family Medicine Geriatric Medicine; Referring Provider Family Medicine Geriatric Medicine; Visit Provider Family Medicine Geriatric Medicine | DX: D62 Acute posthemorrhagic anemia (principal); K92.1 Melena | CPT/HCPCS: 82274 ==

== ENCOUNTER → 2025-03-10 | Outpatient (CLI) | payer OTHER, SELFPAY ==
--- OUTSIDE RECORDS SUMMARY | 2025-03-10 06:43 | XMS RPT_ITS | CCD ---
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 Renato Bonilla Chi Primary Care Provider [phone] Dr. Renato Bonilla Chi Referring Provider [phone] Chad, Dr. Renato Niño Other Provider Dr. Claude Parkinson Attending Provider [phone] Santos Bonilla Unavailable Yimi Stokes Unavailable Unavailable Chad, Dr. Graham Primary Care Unavailable Fozia, Ms. Yimi Blount Attending Ms. Rajni Tse Attending Unavailab dean Pending, Provider Primary Care Unavailable Pending, Provider Primary Care Unavailable Geneva Mendoza Attending Unavailab Kay, Dr. Graham Primary Care Unavailable Fozia, Ms. Yimi Blount Attending Dr. Renato Murray Chi Referring Provider [phone] Jeff Wray Attending Provider [phone] KISHA Hall Attending Provider [phone] Renato Bonilla Chi Primary Care Provider [phone])[phone] Dr. Jeri Bennett Attending Provider 1([facility])[phone] Dr. Jeri Bennett Other Provider [phone] Santos Bonilla MD Primary Care Provider 1([facility])[phone] Dr. Jeff Wary Referring Provider 1([phone] Jeff Wray Other Provider Dr. Abdiel Lennon Attending Provider Amie, Dr. Aldridge Admit Provider Dr. Oly Holloway Attending Provider [phone] Dr. Oly Holloway Referring Provider [phone] Amie, Dr. Aldridge Other Provider Dr. Niecy Joseph Referring Provider Opal, Dr. Pemberton Emergency Provider Dr. Lubna Horton Admit Provider Dr. Lubna Horton Other Provider Warner, Dr. Valencia Attending Provider Warner, Dr. Valencia Other Provider Sabrina, Dr. Wilcox Attending Provider [facility], [facility]. Wilcox Other Provider Chad, Dr. Renato Niño Primary Care Provider Chad, Dr. Renato Niño Referring Provider Nils, Dr. Aguilar Referring Provider Nils, Dr. Aguilar Other Provider Dr. Abdiel Lennon Attending Provider Nils, Dr. Aguilar Attending Provider Dr. Oly Holloway Admit Provider Dr. Oly Holloway Attending Provider [phone] Dr. Oly Holloway Referring Provider [phone] Dr. Oly Holloway Other Provider Dr. Niecy Joseph Emergency Provider Dr. Lubna Horton Admit Provider Dr. Lubna Horton Other Provider Dr. Erik Hylton Attending Provider Dr. Erik Hylton Other Provider Chad, Dr. Renato Niño Primary Care Provider Chad, Dr. Renato Niño Referring Provider Nils, Dr. Aguilar Attending Provider Nils, Dr. Aguilar Referring Provider Nils, Dr. Aguilar Other Provider Dr. Abdiel Lennon Attending Provider Chad, Renato Chi Primary Care Provider [phone] Jeff Wray MD Unavailable Lynn Richardson Unavailable LYNN RICHARDSON Attending Unavailable CHAD, RENATO-CHI Primary Care Unavailable MONCURE, CHRISTELLE Referring Unavailable MONCURE, CHRISTELLE Referring Unavailable LANIELYNN Attending Unavailable CHAD, RENATO-CHI Primary Care Unavailable FARYMAN, MADELINE Referring Unavailable FARYMAN, MADELINE Attending Unavailable CHAD, RENATO-CHI Primary Care Unavailable LANIELYNN Attending Unavailable FARYMAN, MADELINE Referring Unavailable CHAD, RENATO-CHI Primary Care Unavailable Chad CUI, Santos Primary Care Provider [phone] CHAD, RENATO-CHI Primary Care Unavailable ASHELFAH, GHASEM E Admitting Unavailable ASHELFAH, GHASEM E Attending Unavailable Chad CUI, Dr. Renato Niño Primary Care Provider Chad CUI, Dr. Renato Niño Referring Provider Lj FOOD DEMONSTRATOR-Iva Myles Attending Provider Dr. Renato Bonilla MD, Chi Attending Provider Iva Herrera Referring Provider Iva Herrera Other Provider [phone] Monica CUI, Dr. Masterson Attending Provider [phone] Dr. Jeff Wray MD Attending Provider Lj WALDRON-Iva Myles Referring Provider [phone] OSMANY REECE Attending Unavailab le NO, PHYSICIAN Primary Care Unavailable Chad CUI, Dr. Renato Niño Primary Care Provider [phone] Lj FOOD DEMONSTRATOR-CIva Attending Provider [phone] Chad CUI, Dr. Renato Niño Attending Provider Chad CUI, Dr. Renato Niño Referring Provider RENATO BONILLA CHI Referring Unavailable TAMIKA KELLY MD Admitting Unavailable TAMIKA KELLY MD Primary Care Unavailable TAMIKA KELLY MD Attending Unavailable RENATO BONILLA CHI Consulting Unavailable PROVIDER, UNKNOWN Consulting Unavailable PROVIDER, UNKNOWN Consulting Unavailable Chad CUI, Dr. Renato Niño Primary Care Provider [phone] Lj FOOD DEMONSTRATOR-C, Iva Referring Provider [phone] Lj FOOD DEMONSTRATOR-C, Iva Attending Provider Ignacio CUI, Dr. Dent Emergency Provider Unavailab dean Pierre MD, Dr. Dent Emergency Provider Unavailab dean Chow DO, Dr. Molina Admit Provider [phone] Tracy Chow DO Attending Provider Chad CUI, Dr. Renato Niño Primary Care Provider [phone] Chad CUI, Dr. Renato Niño Attending Provider [phone] Chad CUI, Dr. Renato Niño Referring Provider Iva Herrera Attending Provider [phone] Tracy Chow DO Other Provider 1([phone] Warner CUI, Dr. Valencia Other Provider 1([phone] Dr. José Luis Leach DO Other Provider [phone] Emiliano FOOD DEMONSTRATOR-CMelinda Other Provider Prabhakar FOOD DEMONSTRATOR-CNiecy Other Provider [phone] Yuki Avendano Other Provider Dr. Ruben Whitley DO Attending Provider Dr. José Luis Leach DO Attending Provider Dr. Ruben Whitley DO Other Provider Ruben Whitley Attending Unavailable Erik Hylton Consulting Unavailable Tracy Chow Admitting Unavailable Chad, Renato Chi Primary Care Unavailable Haylee, José Luis Consulting Unavailable Melinda Cummings Consulting Unavailable Niecy Radford Consulting Unavailable Yuki Tinajero Consulting Unavailable Tracy Chow Consulting Unavailable Chad, Renato Chi Attending Unavailable Chad, Reanto Chi Primary Care Unavailable Chad, Renato Chi Attending Unavailable Chad, Renato Chi Primary Care Unavailable Chad, Renato Chi Primary Care Unavailable Chad, Renato Chi Attending Unavailable Chad, Renato Chi Referring Unavailable Chad, Renato Chi Attending Unavailable Chad, Renato Chi Referring Unavailable Chad, Renato Chi Primary Care Unavailable Chad, Renato Chi Primary Care Unavailable Chad, Renato Chi Attending Unavailable Chad, Renato Chi Attending Unavailable Chad, Renato Chi Primary Care Unavailable Chad, Renato Chi Attending Unavailable Chad, Renato Chi Primary Care Unavailable Chad, Renato Chi Primary Care Unavailable Tracy Chow Admitting Unavailable rEik Hylton Consulting Unavailable Tracy Chow Attending Unavailable Haylee, José Lusi Consulting Unavailable Melinda Cummings Consulting Unavailable Niecy Radford Consulting Unavailable Yuki Tinajero Consulting Unavailable Tracy Chow Consulting Unavailable Ruben Whitley Attending Unavailable Ruben Whitley Consulting Unavailable Chad, Renato Chi Attending Unavailable Chad, Renato Chi Primary Care Unavailable Chad, Renato Chi Referring Unavailable Iva Calhoun NP Consulting Unavailable Chad, Renato Chi Attending Unavailable Chad, Renato Chi Primary Care Unavailable Chad, Renato Chi Referring Unavailable Chad, Renato Chi Attending Unavailable Chad, Renato Chi Referring Unavailable Chad, Renato Chi Primary Care Unavailable Zelalem Anderson Attending Unavailable Chad, Renato Chi Primary Care Unavailable Lj FOOD DEMONSTRATOR, Iva Referring Unavailable Lj WALDRON, Iva Attending Unavailable Chad, Renato Chi Primary Care Unavailable Jeff Wray Attending Unavailable Lj FOOD DEMONSTRATOR, Iva Referring Unavailable Chad, Renato Chi Primary Care Unavailable Chad, Renato Chi Primary Care Unavailable Chad, Renato Chi Referring Unavailable Lj FOOD DEMONSTRATOR, Iva Attending Unavailable Chad, Renato Chi Referring Unavailable Lj WALDRON, Iva Attending Unavailable Chad, Renato Chi Primary Care Unavailable José Luis Leach Attending Unavailable Chad, Renato Chi Attending Unavailable Chad, Renato Chi Referring Unavailable Chad, Renato Chi Primary Care Unavailable Lj WALDRON, Iva Attending Unavailable Chad, Renato Chi Primary Care Unavailable Lj WALDRON, Iva Referring Unavailable Allergies Allergy Classification Reported Allergen(s) Allergy Type Date of Onset Reaction(s) Facility (5 sources) beta-Blocking agent; Translations: [BETA-BLOCKERS (BETA-ADRENERGI C BLOCKING AGTS)] Propensity to adverse reactions to drug Other: See Comments, Other [facility] Medications Current Medications Medication Drug Class(es) Dates Sig (Normalized) Sig (Original) acetaminophen 325 mg oral tablet (1 source) Start: 10-17-2024 take 1 tablet by mouth every six hours as needed 650 mg, oral, Every 6 hours PRN, pain mild (1-3), first line, pain moderate (4-6), first line, Starting on Jeanne 10/17/24 at 1626, If ordered PRN for pain, nurse is permitted to administer this medication for higher pain scores based on patient preference? Yes amLODIPine 5 mg oral tablet (20 sources) Dihydropyridine Calcium Channel Tabatha Start: 10-21-2024 End: 02-19-2025 take 1 tablet by mouth once daily Amlodipine 5 mg tablet Active 5 mg PO DAILY 90 3 February 19, 2025 7:54am On Hold: Resume on 03/17/25. Start: 10-18-2024 take 5 mg by mouth once daily 5 mg, oral, Nightly, First dose (after last modification) on Mon10/18/24 at 2100 Start: 07-17-2023 End: 10-21-2024 take 1 tablet by mouth once daily Amlodipine 10 mg tablet Discontinued 10 mg PO DAILY 90 3 July 26, 2024 8:56am October 21, 2024 3:52pm Start: 05-22-2023 End: 09-14-2023 take 1 tablet by mouth at bedtime Amlodipine 5 mg tablet Discontinued 5 mg PO AT BEDTIME May 31, 2023 1:00am July 17, 2023 3:49pm atorvastatin 40 mg oral tablet (20 sources) HMG-CoA Reductase Inhibitor Start: 05-17-2023 take 1 tablet by mouth at bedtime Atorvastatin 40 mg tablet Active 40 mg PO AT BEDTIME 30 2 May 17, 2023 1:00am B Complex Vitamins (B COMPLEX 1 PO) (2 sources) Start: 05-02-2023 B Complex Kaylee mins (B COMPLEX 1 PO) Calcium (3 sources) Phosphate Binder, Calcium Start: 06-16-2005 CALCIUM 500 MG TAB Take one(1) tablet two(2) times daily. 0 06/16/2005 Active calcium carbonate 1500 mg oral tablet (11 sources) Start: 02-22-2024 take 1 tablet by mouth once daily Calcium Carbonate (Calcium 600) 600 mg calcium (1,500 mg) tablet Active 600 mg PO DAILY February 22, 2024 12:00am take 1 tablet by mouth once krysten y calcium carbonate (CALCIUM 600 ORAL) Take 1 tablet by mouth once daily. Active take 1 tablet by mouth once krysten y calcium carbonate 1250 (500 Ca) MG tablet Take 1 tablet by mouth daily. Active cholecalciferol 0.025 mg oral tablet (20 sources) Vitamin D Start: 05-31-2023 take 1 tablet by mouth once daily Cholecalciferol (Vitamin D3) (Vitamin D3) 25 mcg (1,000 unit) tablet Active 25 ug PO DAILY May 31, 2023 1:00am Start: 05-02-2023 Cholecalcifero l ([facility] D3) 25 MCG (1000 UT) capsule Take by mouth. 05/02/2023 Active Start: 02-15-2022 End: 05-17-2023 take 1 tablet by mouth once daily Cholecalciferol (Vitamin D3) (Vitamin D3) 25 mcg (1,000 unit) Tablet Discontinued 25 ug PO DAILY February 15, 2022 12:00am May 17, 2023 12:44pm take 1 tablet by amparo th once daily cholecalciferol (VITAMIN D) 1,000 unit tab tablet Take 1,000 Units by mouth once daily. Active cyclobenzaprine hydrochloride 10 mg oral tablet (20 sources) Muscle Relaxant Start: 11-12-2021 End: 05-11-2023 take 1 tablet by mouth once daily as needed for muscle spasms Cyclobenzaprine 10 mg tablet Active 10 mg PO DAILY as needed for muscle spasm May 11, 2023 11:38am take 1 tablet by amparo th three times daily as needed for muscle spasms cyclobenzaprine (Flexeril) 10 mg tablet Take 1 tablet (10 mg) by mouth 3 times a day as needed for muscle spasms. Active Flexeril 10 mg o ral tablet Quantity: 0 Refills: 0 Ordered: 19-Jun-2021 Gaviota Espinosa Status: Other Generic Substitution Allowed 0.4 ml enoxaparin sodium 100 mg/ml prefilled syringe (1 source) Low Molecular Weight Heparin Start: 10-17-2024 inject 40 mg by subcutaneous injection every twenty-four hours 40 mg, subcutaneous, Every 24 hours, First dose on Jeanne 10/17/24 at 1800, Indications: deep vein thrombosis prevention Magnesium (7 sources) Start: 10-31-2022 Magnesium 500 MG tablet Take by mouth. 10/31/2022 Active Start: 10-31-2022 Magnesium 500 MG tablet Take by mouth. 0 10/31/2022 Active Magnesium glycinate (1 source) take 500 mg by mouth once daily at bedtime MAGNESIUM GLYCINATE ORAL Take 500 mg by mouth once daily at bedtime. Active magnesium oxide 400 mg oral tablet (20 sources) Start: take 1 tablet by mouth once daily Magnesium Oxide 400 mg magnesium tablet Active 400 mg PO DAILY November 12, 2021 12:00am melatonin 3 mg oral tablet (1 source) Start: take 3 mg by mouth once daily as needed for sleep 3 mg, oral, Nightly PRN, sleep, Starting on [facility] 10/17/24 at 1627 2 ml ondansetron 2 mg/ml injection (1 source) Serotonin-3 Receptor Antagonist Start: take 4 mg intravenously every six hours as needed 4 mg, intravenous, Every 6 hours PRN, nausea/vomiting, first line, Starting on Jeanne 10/17/24 at 1627, When administering via IV Push, administer over 3-5 minutes. pantoprazole 40 mg delayed release oral tablet (3 sources) Proton Pump Inhibitor Start: End: take 1 tablet by mouth twice daily Pantoprazole 40 mg tablet,delayed release (DR/EC) Active 40 mg PO TWICE A DAY 180 90 0 March 01, 2025 10:17am sucralfate 1000 mg oral tablet (3 sources) Aluminum Complex Start: take 1 tablet by mouth three times daily Sucralfate 1 gram tablet Active 1 g PO THREE TIMES A DAY 90 30 0 March 01, 2025 10:17am Start: 02-28-2025 End: 03-01-2025 take 1 tablet by mouth twice daily Sucralfate 1 gram tablet Discontinued 1 g PO TWICE A DAY February 28, 2025 12:00am March 01, 2025 10:17am Vibegron (2 sources) Start: 02-28-2025 take 1 tablet by amparo th once daily Vibegron (Gemtesa) 75 mg tablet Active 75 mg PO DAILY February 28, 2025 12:00am Start: 02-28-2025 take 1 tablet by amparo th once daily Vibegron (Vibegron 75 Mg Tablet) 75 mg tablet Active 75 mg PO DAILY February 28, 2025 12:00am Vitamin B Complex (12 sources) Start: 05-17-2023 take 1 tablet by amparo th once daily Vitamin B Complex Active 1 TABLET PO DAILY May 17, 2023 1:00am Start: 05-17-2023 take 1 tablet by mouth once da shazia Vitamin B Complex Active 1 TABLET PO DAILY May 17, 2023 12:00am Completed/Discontinued Medications Medication Drug Class(es) Dates Sig [...] directed by prescriber.Take with food or milk. Comment on above: Finish all this medi cation unless otherwise directed by prescriber.Take with food or milk. ascorbic acid 500 mg oral tablet (20 sources) Vitamin C Start: 02-15-2022 End: 05-17-2023 take 1 g by mouth once daily Ascorbic Acid (Vitamin C) (Vitamin C) 500 mg tablet Discontinued 1 g PO DAILY May 11, 2023 11:38am May 17, 2023 12:43pm aspirin 81 mg delayed release oral tablet (20 sources) Platelet Aggregation Inhibitor, Nonsteroidal Anti-inflammatory Drug Start: 06-12-2023 take 1 tablet by mouth once daily Aspirin (Adult Aspirin Regimen) 81 mg tablet,delayed release (DR/EC) Active 81 mg PO DAILY June 12, 2023 1:00am On Hold: Resume on 04/02/25. Please hold for 1 month to allow the your stomach ulcer to heal. Start: 06-08-2023 aspirin 81 MG Chew Tab chewable tablet Chew 1 tablet daily. 30 tablet 11 06/08/2023 Active Start: 05-11-2023 End: 05-17-2023 take 1 tablet by mouth once daily Aspirin 81 mg tablet,delayed release (DR/EC) Discontinued 81 mg PO DAILY May 11, 2023 1:00am May 17, 2023 12:43pm azithromycin 250 mg oral tablet (3 sources) Macrolide Antimicrobial Start: 06-19-2021 End: 06-23-2021 Azithromycin 5 Day Dose Pack 250 mg oral tablet ; take as directed on package Quantity: 6 Refills: 0 Ordered: 19-Jun-2021 Rajni Lopez Start: 19-Jun-2021 End: 23-Jun-2021 Status: Other Generic Substitution Allowed Comments: Do not take dairy products, antacids, or iron preparations within one hour of this medication.Finish all this medication unless otherwise directed by prescriber. Comment on above: Do not take dairy pr oducts, antacids, or iron preparations within one hour of this medication.Finish all this medication unless otherwise directed by prescriber. cephalexin 250 mg oral capsule (6 sources) Cephalosporin Antibacterial Start: 12-02-2024 End: 02-28-2025 take 1 capsule by mouth three times daily Cephalexin 250 mg capsule Discontinued 250 mg PO THREE TIMES A DAY December 02, 2024 12:00am February 28, 2025 9:45am 10 days clopidogrel 75 mg oral tablet (20 sources) [id number] Platelet Inhibitor Start: 02-22-2024 End: 02-22-2024 Clopidogrel 75 mg tablet Discontinued 75 mg PO .COMPLEX February 22, 2024 2:54pm February 22, 2024 3:49pm 75 mg orally 4 tablets by mouth Start: 07-14-2023 End: 10-21-2024 Clopidogrel 75 mg tablet Dis continued 75 mg PO .COMPLEX February 22, 2024 3:48pm October 21, 2024 3:30pm 75 mg orally DAILY MULTIPLE TAB (3 sources) Start: 06-15-2005 End: 03-27-2024 DAILY MULTIPLE TAB 0 005 03/27/2024 Discontinued (Course of therapy completed) Start: 06-15-2005 DAILY MULTIPLE TAB 0 06/15/2005 Active 84 hr estradiol 0.25333 mg/hr transdermal system (3 sources) Estrogen Start: 12-14-2011 End: 03-27-2024 Estradiol (VIVELLE-DOT) 0.0375 mg/24 hr Indications: Postmenopausal HRT (hormone replacement therapy) TWICE WEEKLY 8 Patch 12 12/14/2011 03/27/2024 Discontinued (Course of therapy completed) ferrous sulfate 324 mg delayed release oral tablet (20 sources) Start: 05-11-2023 End: 07-17-2023 take 1 tablet by mouth once daily Ferrous Sulfate 324 mg (65 mg iron) tablet,delayed release (DR/EC) Discontinued 324 mg PO DAILY May 11, 2023 1:00am July 17, 2023 3:20pm Start: 05-02-2023 take 1 tablet by amparo th every other day Ferrous Sulfate (Ferosul) 325 mg (65 mg iron) tablet Active 325 mg PO every other day February 22, 2024 12:00am take 1 tablet by amparo th every other day ferrous sulfate 325 (65 Fe) mg EC tablet Take 1 tablet by mouth every other day. Do not crush, chew, or split. Active fluticasone propionate 0.05 mg/actuat metered dose nasal spray (3 sources) Corticosteroid Start: 06-25-2019 End: 03-27-2024 take 2 spray(s) by mouth once daily fluticasone (FLONASE) 50 mcg/actuation nasal spray Indications: Viral URI Use 2 Sprays in each nostril once daily. Rinse mouth after use. 1 Bottle 06/25/2019 03/27/2024 Discontinued (Course of therapy completed) folic acid 0.4 mg oral tablet (3 sources) Start: 06-29-2006 End: 03-27-2024 FOLIC ACID 400 MCG TAB take three tablets daily = 1200 mcg 0 06/29/2006 03/27/2024 Discontinued (Course of therapy completed) hydroCHLOROthiazide 12.5 mg / losartan potassium 100 mg oral tablet (20 sources) Thiazide Diuretic, Angiotensin 2 Receptor Tabatha Start: 11-12-2021 End: 05-17-2023 Losartan-Hydrochl orothiazide 100-12.5 mg tablet Discontinued 1 {tbl} PO DAILY May 11, 2023 11:39am May 17, 2023 12:43pm Start: 11-12-2021 End: 05-17-2023 take 1 tablet by mouth once daily Losartan-Hydrochlorothiazide Discontinue d 1 TABLET PO DAILY May 11, 2023 10:39am May 17, 2023 11:43am iohexol (OMNIPaque) 350 mg iodine/mL solution 70 mL (1 source) Start: 10-17-2024 End: 10-17-2024 70 mL, intravenous, Once in imaging, Starting on Jeanne 10/17/24 at 1222, For 1 dose iohexol (OMNIPAQUE) 350 MG/M L injection 1-171 mL (4 sources) Start: 10-10-2024 End: 10-10-2024 1-171 mL, Intravenous, ONCE, 1 dose, On Jeanne 10/10/24 at 0800, Extravasation Risk, CT Procedure Start: 03-07-2024 End: 03-07-2024 1-171 mL, Intravenous, ONCE, 1 dose, On Jeanne 03/07/24 at 0830, Extravasation Risk, CT Procedure Start: 09-14-2023 End: 09-14-2023 1-171 mL, Intravenous, ONCE, 1 dose, On Jeanne 09/14/23 at 0815, Extravasation Risk, CT Procedure Start: 06-08-2023 End: 06-08-2023 iohexol (OMNIPAQUE) 350 MG/M L injection 1-171 mL Iron (20 sources) Start: 11-12-2021 End: 05-11-2023 take 1 tablet by mouth once daily Iron 18 mg tablet Discontinued 18 mg PO DAILY November 12, 2021 12:00am May 11, 2023 11:39am Start: 11-12-2021 End: 05-11-2023 take 18 mg by mouth once daily Iron Discontinued 18 MG PO DAILY November 12, 2021 12:00am May 11, 2023 11:39am Start: 11-12-2021 End: 05-11-2023 take 18 mg by mouth once daily Iron Discontinued 18 MG PO DAILY November 11, 2021 11:00pm May 11, 2023 10:39am Start: 11-12-2021 take 18 mg by mouth once daily Iron Active 18 MG PO DAILY November 11, 2021 11:00pm Start: 11-12-2021 take 18 mg by mouth once daily Iron Active 18 MG PO DAILY November 12, 2021 12:00am losartan potassium 50 mg oral tablet (20 sources) Angiotensin 2 Receptor Tabatha Start: 06-19-2023 End: 06-28-2024 take 1 tablet by mouth once daily Losartan 50 mg tablet Discontinued 50 mg PO DAILY July 17, 2023 3:20pm June 28, 2024 4:03pm Start: 05-17-2023 End: 09-14-2023 take 1 tablet by mouth once daily Losartan 25 mg tablet Discontinued 25 mg PO DAILY 01 06May 17, 2023 1:00am May 17, 2023 2:11pm meclizine hydrochloride 25 mg chewable tablet (14 sources) Antiemetic Start: 07-27-2023 End: 02-22-2024 take 1 tablet by mouth every six hours as needed for dizziness Meclizine (Antivert) 25 mg tablet,chewable Discontinued 25 mg PO EVERY 6 HOURS NEEDED as needed for dizziness 20 July 27, 2023 2:11pm February 22, 2024 2:55pm microencapsulated potassium chloride 20 meq extended release oral tablet (14 sources) Start: 07-27-2023 End: 02-22-2024 take 2 tablets by mouth once daily at mealtime Potassium Chloride 20 mEq Tablet,Er Particles/Crystals Discontinued 40 meq PO DAILY WITH MEALS 4 2 July 27, 2023 1:00am February 22, 2024 2:55pm Start: 07-27-2023 take 40 mEq by mouth once daily at mealtime Potassium Chloride Active 40 MEQ PO DAILY WITH MEALS 4 July 27, 2023 1:00am 1000 ml sodium chloride 9 mg/ml injection (6 sources) Start: 10-17-2024 End: 10-18-2024 take 125 mL intravenously every hour 125 mL/hr, intravenous, Continuous, Starting on Jeanne 10/17/24 at 1055, For 1 day Start: 10-10-2024 End: 10-10-2024 1-100 mL, Intravenous, ONCE NEEDED, 1 dose, Starting on Jeanne 10/10/24 at 0748, Until Jeanne 10/10/24 at 0748, Flush, CT Procedure Start: 03-07-2024 End: 03-07-2024 1-100 mL, Intravenous, ONCE NEEDED, 1 dose, Starting on Jeanne 03/07/24 at 0816, Until Jeanne 03/07/24 at 0822, Flush, CT Procedure Start: 09-14-2023 End: 09-14-2023 1-100 mL, Intravenous, ONCE NEEDED, 1 dose, Starting on Jeanne 09/14/23 at 0813, Until Jeanne 09/14/23 at 0814, Flush, CT Procedure Start: 06-08-2023 End: 06-08-2023 Sodium chloride (PF) 0.9 % i njection 1-100 mL ticagrelor 90 mg oral tablet (17 sources) Start: 06-16-2023 End: 07-14-2023 take 1 tablet by mouth twice daily Ticagrelor (Brilinta) 90 mg tablet Discontinued 90 mg PO TWICE A DAY 60 June 16, 2023 1:00am July 14, 2023 12:04pm Vitamin B Complex tablet (8 sources) Start: 05-17-2023 End: 02-22-2024 Vitamin B Complex tablet Discontinued 1 {tbl} PO DAILY May 17, 2023 1:00am February 22, 2024 2:55pm Zinc (20 sources) Start: 02-15-2022 End: 05-17-2023 take 1 tablet by mouth once daily Zinc 50 mg Tablet Discontinued 50 mg PO DAILY February 15, 2022 12:00am May 17, 2023 12:43pm Start: 02-15-2022 End: 05-17-2023 take 50 mg by mouth once daily Zinc Discontinued 50 MG PO DAILY February 15, 2022 12:00am May 17, 2023 12:43pm Start: 02-15-2022 End: 05-17-2023 take 50 mg by mouth once daily Zinc Discontinued 50 MG PO DAILY February 14, 2022 11:00pm May 17, 2023 11:43am Start: 02-15-2022 take 50 mg by mouth once daily Zinc Active 50 MG PO DAILY February 14, 2022 11:00pm Start: 02-15-2022 take 50 mg by mouth once daily Zinc Active 50 MG PO DAILY February 15, 2022 12:00am Problems Active Problems Problem Classification Problem Date Documented Da te Episodic/Chronic Acute posthemorrhagic anemia (1 source) Acute posthemorrhagic anemia; Translations: [Acute posthemorrhagic anemia] Onset: 5 Episodic Aortic; peripheral; and visceral artery aneurysms (20 sources) Disorder of aorta; Translations: [Aortic aneurysm of unspecified site, without rupture] Onset: 5 05-17-2023 Chronic Cardiac dysrhythmias (20 sources) Supraventricular tachycardia; Translations: [SVT (supraventricular tachycardia) (HCC)] 03-27-2024 Chronic Cardiac dysrhythmias (20 sources) Bradycardia; Translations: [Bradycardia, unspecified] 05-11-2023 Episodic Cataract (8 sources) Bilateral age-related cataract; Translations: [Unspecified age-related cataract] Onset: 2 06-08-2023 Chronic Conditions associated with dizziness or vertigo (20 sources) Lightheadedness; Translations: [Dizziness and giddiness] 05-11-2023 Episodic Coronary atherosclerosis and other heart disease (20 sources) Atherosclerotic heart disease of [place] coronary artery without angina pectoris; Translations: [Stenosis of right coronary artery] Onset: 3 06-09-2023 Chronic Comment on above: Severe mid RCA steno sis per CCTA done 06/07/2023 Deficiency and other anemia (20 sources) Anemia; Translations: [Anemia, unspecified] 05-17-2023 Episodic Deficiency and other anemia (20 sources) Anemia, unspecified; Translations: [Anemia, unspecified] Onset: 5 05-17-2023 Episodic Disorders of lipid metabolism (20 sources) Hyperlipidemia; Translations: [Hyperlipidemia, unspecified] 05-11-2023 Chronic E Codes: Struck by; against (1 source) Striking against or struck by other objects, initial encounter; Translations: [Striking against or struck by other objects, init encntr] Onset: 2 Episodic E Codes: Unspecified (1 source) Civilian activity done for income or pay; Translations: [Civilian activity done for income or pay] Onset: 2 Episodic Essential hypertension (20 sources) Essential (primary) hypertension; Translations: [Hypertensive disorder] Onset: 2 05-31-2023 Chronic Comment on above: IMPROVING WITH MEDS AT THIS TIME Fluid and electrolyte disorders (18 sources) Hypokalemia; Translations: [Hypokalemia] 06-09-2023 Episodic Gastrointestinal hemorrhage (7 sources) Gastrointestinal hemorrhage; Translations: [Gastrointestinal hemorrhage, unspecified] Onset: 5 02-28-2025 Episodic Headache; including migraine (1 source) Headache; including migraine; Translations: [Headache, unspecified] Onset: 2 Malaise and fatigue (20 sources) Other fatigue; Translations: [Fatigue] Onset: 2 05-11-2023 Episodic Nonspecific chest pain (2 sources) Chest pain; Translations: [Chest pain, unspecified] Onset: 5 10-17-2024 Episodic Other circulatory disease (15 sources) Raynaud's phenomenon; Translations: [Raynaud's syndrome without gangrene] 07-17-2023 Chronic Other circulatory disease (7 sources) Raynaud's syndrome without gangrene; Translations: [Raynaud's syndrome] 07-17-2023 Chronic Other connective tissue disease (2 sources) Pain in right hand; Translations: [Pain in right hand] Onset: 2 Episodic Other connective tissue disease (1 source) Other specified soft tissue disorders; Translations: [Other specified soft tissue disorders] Onset: 2 Episodic Other gastrointestinal disorders (20 sources) Occult blood in stools; Translations: [Other fecal abnormalities] 05-17-2023 Episodic Other injuries and conditions due to external causes (2 sources) Other injury of unspecified body region, initial encounter; Translations: [Other injury of unspecified body region, initial encounter] Onset: 5 Episodic Other screening for suspected conditions (not mental disorders or infectious disease) (20 sources) Patient encounter status; Translations: [Encounter for screening for malignant neoplasm of colon] Onset: 3 11-12-2021 Episodic Other skin disorders (1 source) Localized swelling, mass and lump, right upper limb; Translations: [Localized swelling, mass and lump, right upper limb] Onset: 2 Episodic Peripheral and visceral atherosclerosis (3 sources) Atherosclerosis of aorta; Translations: [Atherosclerosis of aorta] Onset: 5 10-17-2024 Chronic Residual codes; unclassified (1 source) Chills (without fever); Translations: [Chills (without fever)] Onset: 5 Episodic Retinal detachments; defects; vascular occlusion; and retinopathy (7 sources) Bilateral age-related nonexudative macular degeneration; Translations: [Nonexudative age-related macular degeneration, bilateral, stage unspecified] Onset: 2 06-08-2023 Chronic Substance-related disorders (1 source) Nicotine dependence, unspecified, uncomplicated; Translations: [Nicotine dependence, unspecified, uncomplicated] Onset: 2 Chronic Superficial injury; contusion (2 sources) Contusion of hand; Translations: [Contusion of hand(s)] Onset: 2 04-25-2022 Episodic Unclassified (2 sources) SINUS 06-19-2021 Comment on above: SINUS Unclassified (1 source) Sinusitis, acute, maxillary 06-19-2021 Unclassified (2 sources) SINUS INF 08-27-2021 Comment on above: SINUS INF Unclassified (2 sources) R HAND PAIN 04-25-2022 Comment on above: R HAND PAIN Unclassified (1 source) Contusion of right hand, initial encounter 04-25-2022 Past or Other Problems Problem Classification Problem Date Documented Da te Episodic/Chronic Coronary atherosclerosis and other heart disease (20 sources) Stented coronary artery; Translations: [Presence of coronary angioplasty implant and graft] Onset: 06-15-2023 06-24-2023 Episodic Comment on above: [facility] 4.0 X 12 mm MARIYA to mid RCA 06/15/2023 Noninfectious gastroenteritis (10 sources) Colitis; Translations: [Noninfective gastroenteritis and colitis, unspecified] Onset: 12-14-2011 Resolved: 03-27-2024 06-08-2023 Episodic Other diseases of kidney and ureters (1 source) Cyst of kidney, acquired; Translations: [Cyst of kidney, acquired] Onset: 12-05-2024 Episodic Other gastrointestinal disorders (8 sources) Other fecal abnormalities; Translations: [Nonspecific abnormal findings in stool contents] 05-17-2023 Episodic Other upper respiratory disease (1 source) Nasal congestion; Translations: [Nasal congestion] Onset: 08-27-2021 Episodic Other upper respiratory infections (5 sources) Acute maxillary sinusitis; Translations: [Acute maxillary sinusitis] Onset: 06-19-2021 06-19-2021 Episodic Syncope (20 sources) Syncope; Translations: [Syncope and collapse] Onset: 03-27-2024 05-31-2023 Episodic Comment on above: 04/2023 PASSED OUT Urinary tract infections (1 source) Urinary tract infection, site not specified; Translations: [Urinary tract infection, site not specified] Onset: 11-14-2024 Episodic Results Test Name Value Interpretation Reference Range Facility Stool Occult Blood iFOBon STOB Negative Normal [facility] Comment on above: Performed By: #### L 500.4050, L100.0100, L501.9520, L506.1001, L500.4100 #### [facility] [address] [place], [address] CBC W/Diff, Automatedon Absolute Lymph 1.17 X10 3/uL Normal 0.83-4.51 [facility] Comment on above: Performed By: #### L 100.0100 #### [facility] [address] [place], [address] Absolute Neut 2.3 X10 3/uL Normal 2.0-7.7 [facility] Comment on above: Performed By: #### L 100.0100 #### [facility] [address] [place], [address] Basophils/100 WBC (Bld) 0.5 % Normal 0-1 [facility] Comment on above: Performed By: #### L 100.0100 #### [facility] [address] [place], [address] Eosinophils/100 WBC (Bld) 4.1 % Normal 0-5 [facility] Comment on above: Performed By: #### L 100.0100 #### [facility] [address] [place], [address] Erythrocyte distribution width (RBC) [Ratio] 14.5 % Normal 11.6-14.6 [facility] Comment on above: Performed By: #### L 100.0100 #### [facility] [address] [place], [address] Hematocrit (Bld) [Volume fraction] 25.8 % Low 37-47 [facility] Comment on above: Performed By: #### L 100.0100 #### [facility] [address] [place], [address] Hemoglobin (Bld) [Mass/Vol] 8.5 g/dL Low 12.0-15.0 [facility] Comment on above: Performed By: #### L 100.0100 #### [facility] [address] [place], [address] IG% 0.200 Normal 0.0-0.9 [facility] Comment on above: Result Comment: IG% - Immature Granulocytes (promyelocytes, myelocytes and metamyelocytes) > 1% indicates that a LEFT SHIFT is Present. Performed By: #### L 100.0100 #### [facility] [address] [place], [address] Lymphocytes/100 WBC (Bld) 28.1 % Normal 19-41 [facility] Comment on above: Performed By: #### L 100.0100 #### [facility] [address] [place], [address] MCH (RBC) [Entitic mass] 31.7 pg Normal 27.0-32.0 [facility] Comment on above: Performed By: #### L 100.0100 #### [facility] [address] [place], [address] MCHC (RBC) [Mass/Vol] 32.9 g/dL Normal 32-36 [facility] Comment on above: Performed By: #### L 100.0100 #### [facility] [address] [place], [address] MCV (RBC) [Entitic vol] 96.3 fL Normal 81-99 [facility] Comment on above: Performed By: #### L 100.0100 #### [facility] [address] [place], [address] Monocytes/100 WBC (Bld) 11.1 % High 0-10 [facility] Comment on above: Performed By: #### L 100.0100 #### [facility] [address] [place], [address] Neutrophils/100 WBC (Bld) 56.0 % Normal 47-70 [facility] Comment on above: Performed By: #### L 100.0100 #### [facility] [address] [place], [address] Nucleated RBC (Bld) [#/Vol] 0 10*3/uL Normal 0-5 [facility] Comment on above: Performed By: #### L 100.0100 #### [facility] [address] [place], [address] Platelet mean volume (Bld) [Entitic vol] 8.4 fL Normal 6.2-12.0 [facility] Comment on above: Performed By: #### L 100.0100 #### [facility] [address] [place], [address] Platelets (Bld) [#/Vol] 316 10*3/uL Normal 150-450 [facility] Comment on above: Performed By: #### L 100.0100 #### [facility] [address] [place], [address] RBC (Bld) [#/Vol] 2.68 10*6/uL Low 4.2-5.4 [facility] Comment on above: Performed By: #### L 100.0100 #### [facility] [address] [place], [address] RDW SD 50.0 fl High 35.1-43.9 [facility] Comment on above: Performed By: #### L 100.0100 #### [facility] [address] [place], [address] WBC (Bld) [#/Vol] 4.2 10*3/uL Low 4.4-11.0 [facility] Comment on above: Performed By: #### L 100.0100 #### [facility] [address] [place], [place], [id number] EGD Reporton 03-04-2025 EGD Report [place] Medical Records Department [address] [facility] [place] [address] EGD Report MR#: [id number] Acct: [id number] Name: AMIE RYAN Rep #: [id number] : 1960 64 From: José Luis Leach DO PCP: Dr. Renato Bonilla MD Status:DIS IN Patient Name: Amie Ryan Procedure Date: 02/28/2025 12:36 PM Date of : 1960 Age: 64 Procedure: Upper GI endoscopy Indications: Melena Providers: José Luis Leach DO Medicines: Monitored Anesthesia Care Patient Profile: This is a 64 year old female. Refer to note in patient chart for documentation of history and physical. Patient has symptoms of acute epigastric abdominal pain. Complications: No immediate complications. Procedure: Pre-Anesthesia Assessment: - Prior to the procedure, a History and Physical was performed, and patient medications and allergies were reviewed. The patient is competent. The risks and benefits of the procedure and the sedation options and risks were discussed with the patient. All questions were answered and informed consent was obtained. Patient identification and proposed procedure were verified by the physician in the pre-procedure area. Mental Status Examination: alert and oriented. Airway Examination: normal oropharyngeal airway and neck mobility. Respiratory Examination: clear to auscultation. CV Examination: normal. Prophylactic Antibiotics: The patient does not require prophylactic antibiotics. Prior Anticoagulants: The patient has taken no anticoagulant or antiplatelet agents except for NSAID medication. ASA Grade Assessment: II - A patient with mild systemic disease. After reviewing the risks and benefits, the patient was deemed in satisfactory condition to undergo the procedure. The anesthesia plan was to use monitored anesthesia care (MAC). Immediately prior to administration of medications, the patient was re-assessed for adequacy to receive sedatives. The heart rate, respiratory rate, oxygen saturations, blood pressure, adequacy of pulmonary ventilation, and response to care were monitored throughout the procedure. The physical status of the patient was re-assessed after the procedure. After obtaining informed consent, the endoscope was passed under direct vision. Throughout the procedure, the patient's blood pressure, pulse, and oxygen saturations were monitored continuously. The Endoscope was introduced through the mouth, and advanced to the fourth part of the duodenum. Small bowel enteroscopy was deemed necessary. The upper GI endoscopy was accomplished without difficulty. The patient tolerated the procedure well. Scope In: 2:46:01 PM Scope Out: 3:07:08 PM Total Procedure Duration Time 0 hours 21 minutes 7 seconds Findings: The examined esophagus was normal. Three non-bleeding cratered gastric ulcers with a visible vessel were found in the gastric antrum. The largest lesion was 20 mm in largest dimension. For hemostasis, three hemostatic clips were successfully placed. Clip natural gas treating unit operator: [place]ix. There was no bleeding at the end of the procedure. Area was successfully injected with 10 mL of a 0.1 mg/mL solution of epinephrine for drug delivery. Coagulation for destruction of remaining portion of lesion using argon plasma at 0.4 liters/minute and 20 steve was successful. Estimated blood loss was minimal. No gross lesions were noted in the entire examined duodenum. Impression: - Normal esophagus. - Non-bleeding gastric ulcers with a visible vessel. Clips were placed. Clip natural gas treating unit operator: Wallix. Injected. Treated with argon plasma coagulation (APC). - No gross lesions in the entire examined duodenum. - No specimens collected. Recommendation: - Discharge patient to home. - Resume previous diet. - Continue present medications. - The patient is not currently taking anticoagulant or antiplatelet agents except for aspirin and NSAID medication. - Repeat upper endoscopy in 3 months for surveillance. Procedure Code(s): --- Professional --- 37292, Small intestinal endoscopy, enteroscopy beyond second portion of duodenum, not including ileum; with ablation of tumor(s), polyp(s), or other lesion(s) not amenable to removal by hot biopsy forceps, bipolar cautery or snare technique 71636, 59,51, Small intestinal endoscopy, enteroscopy beyond second portion of duodenum, not including ileum; with control of bleeding (eg, injection, bipolar cautery, unipolar cautery, laser, heater probe, stapler, plasma sourcing manager) 79367, Unlisted procedure, small intestine CPT copyright 2021 [employer]. All rights reserved. The codes documented in this report are preliminary and upon owner spa director review may be revised to meet current compliance requirements. José Luis Leach DO 03/04/2025 1:54:13 PM This report has been signed e (more content not included)... [facility] MR/OP[facility] Medical Records Department [address] [place] [address] Provation Physician Letter MR#: [id number] Acct: [id number] Name: AMIE RYAN Rep #: [id number] : 1960 64 From: José Luis Leach DO PCP: Dr. Renato Bonilla MD Status:DIS IN 03/04/2025 Renato Bonilla MD [address] [place] [address] Re : Upper GI endoscopy procedure for Amie Ryan Dear Dr. Bonilla This procedure was performed on Monday, February 28, 2025. My impressions and recommendations are as follows: Impressions : - Normal esophagus. - Non-bleeding gastric ulcers with a visible vessel. Clips were placed. Clip natural gas treating unit operator: Wallix. Injected. Treated with argon plasma coagulation (APC). - No gross lesions in the entire examined duodenum. - No specimens collected. Recommendations : - Discharge patient to home. - Resume previous diet. - Continue present medications. - The patient is not currently taking anticoagulant or antiplatelet agents except for aspirin and NSAID medication. - Repeat upper endoscopy in 3 months for surveillance. My findings are described in the full procedure note, which is enclosed. If I can be of further assistance, please feel free to contact me at . Sincerely, José Luis Leach DO 03/04/2025 1:54:13 PM This report has been signed electronically. 03/04/25 1354 Date José Luis Leach DO Cosigner Signature: Date (if indicated) CC: JENNIFER Cummings; JENNIFER Radford; Dr. Ruben Whitley DO; Dr. Tracy Chow DO; Dr. Erik Hylton MD; Dr. Renato Bonilla MD; KISHA Lance; José Luis Leach, Date Dictated: 02/28/25 1236 Date Transcribed: Care Partner: TEJAL Signed Normal [facility] Absolute lymphocyte countOrd ered By: Tracy Chow on 03-01-2025 Lymphocytes Auto (Unsp spec) [#/Vol] 1.57 10*3/uL 0.83-4.51 [facility] Absolute neutrophil countOrd ered By: Tracy Chow on 03-01-2025 Neutrophils (Bld) [#/Vol] 3.1 10*3/uL 2.0-7.7 [facility] Anion gap in Serum or Plasma Ordered By: Tracy Chow on 03-01-2025 Anion gap [Moles/Vol] 8 mmol/L 5-15 [facility] Automated lymphocyte count a s percentage of total leukocytesOrdered By: Tracy Chow on 03-01-2025 Lymphocytes/100 WBC Auto (Unsp spec) 27.0 % 19-41 [facility] BUN/creatinine ratioOrdered By: Tracy Chow on 03-01-2025 Urea nitrogen/Creatinine [Mass ratio] 20.7 mg/mg High 10-20 [facility] Basophil percentageOrdered B y: Tracy Chow on 03-01-2025 Basophils/100 WBC (Bld) 0.3 % 0-1 [facility] Bilirubin, totalOrdered By: Tracy Chow on 03-01-2025 Bilirubin [Mass/Vol] 0.31 mg/dL 0.00-1.30 [facility] CBC W/Diff, Automatedon 08-3 0-2024 Absolute Lymph 1.57 X10 3/uL Normal 0.83-4.51 [facility] Comment on above: Performed By: #### L 500.4050, L501.2300, L501.5200, L100.0100 #### [facility] [address] [place], [address] Absolute Neut 3.1 X10 3/uL Normal 2.0-7.7 [facility] Comment on above: Performed By: #### L 500.4050, L501.2300, L501.5200, L100.0100 #### [facility] [address] [place], [address] Basophils/100 WBC (Bld) 0.3 % Normal 0-1 [facility] Comment on above: Performed By: #### L 500.4050, L501.2300, L501.5200, L100.0100 #### [facility] [address] [place], [address] Eosinophils/100 WBC (Bld) 5.7 % High 0-5 [facility] Comment on above: Performed By: #### L 500.4050, L501.2300, L501.5200, L100.0100 #### [facility] [address] [place], [address] Erythrocyte distribution width (RBC) [Ratio] 14.9 % High 11.6-14.6 [facility] Comment on above: Performed By: #### L 500.4050, L501.2300, L501.5200, L100.0100 #### [facility] [address] [place], [address] Hematocrit (Bld) [Volume fraction] 26.5 % Low 37-47 [facility] Comment on above: Performed By: #### L 500.4050, L501.2300, L501.5200, L100.0100 #### [facility] [address] [place], [address] Hemoglobin (Bld) [Mass/Vol] 9.0 g/dL Low 12.0-15.0 [facility] Comment on above: Performed By: #### L 500.4050, L501.2300, L501.5200, L100.0100 #### [facility] [address] [place], [address] IG% 0.900 Normal 0.0-0.9 [facility] Comment on above: Result Comment: IG% - Immature Granulocytes (promyelocytes, myelocytes and metamyelocytes) > 1% indicates that a LEFT SHIFT is Present. Performed By: #### L 500.4050, L501.2300, L501.5200, L100.0100 #### [facility] [address] [place], [address] Lymphocytes/100 WBC (Bld) 27.0 % Normal 19-41 [facility] Comment on above: Performed By: #### L 500.4050, L501.2300, L501.5200, L100.0100 #### [facility] [address] [place], [address] MCH (RBC) [Entitic mass] 31.9 pg Normal 27.0-32.0 [facility] Comment on above: Performed By: #### L 500.4050, L501.2300, L501.5200, L100.0100 #### [facility] [address] [place], [address] MCHC (RBC) [Mass/Vol] 34.0 g/dL Normal 32-36 [facility] Comment on above: Performed By: #### L 500.4050, L501.2300, L501.5200, L100.0100 #### [facility] [address] [place], [address] MCV (RBC) [Entitic vol] 94.0 fL Normal 81-99 [facility] Comment on above: Performed By: #### L 500.4050, L501.2300, L501.5200, L100.0100 #### [facility] [address] [place], [address] Monocytes/100 WBC (Bld) 12.2 % High 0-10 [facility] Comment on above: Performed By: #### L 500.4050, L501.2300, L501.5200, L100.0100 #### [facility] [address] [place], [address] Neutrophils/100 WBC (Bld) 53.9 % Normal 47-70 [facility] Comment on above: Performed By: #### L 500.4050, L501.2300, L501.5200, L100.0100 #### [facility] [address] [place], [address] Nucleated RBC (Bld) [#/Vol] 0 10*3/uL Normal 0-5 [facility] Comment on above: Performed By: #### L 500.4050, L501.2300, L501.5200, L100.0100 #### [facility] [address] [place], [address] Platelet mean volume (Bld) [Entitic vol] 8.5 fL Normal 6.2-12.0 [facility] Comment on above: Performed By: #### L 500.4050, L501.2300, L501.5200, L100.0100 #### [facility] [address] [place], [address] Platelets (Bld) [#/Vol] 238 10*3/uL Normal 150-450 [facility] Comment on above: Performed By: #### L 500.4050, L501.2300, L501.5200, L100.0100 #### [facility] [address] [place], [address] RBC (Bld) [#/Vol] 2.82 10*6/uL Low 4.2-5.4 [facility] Comment on above: Performed By: #### L 500.4050, L501.2300, L501.5200, L100.0100 #### [facility] [address] [place], [address] RDW SD 50.8 fl High 35.1-43.9 [facility] Comment on above: Performed By: #### L 500.4050, L501.2300, L501.5200, L100.0100 #### [facility] [address] [place], [address] WBC (Bld) [#/Vol] 5.8 10*3/uL Normal 4.4-11.0 [facility] Comment on above: Performed By: #### L 500.4050, L501.2300, L501.5200, L100.0100 #### [facility] [address] [place], [address] Carbon dioxide, total [Moles /volume] in Central venous bloodOrdered By: Tracy Chow on 03-01-2025 CO2 [Moles/Vol] 26.8 mmol/L 21.0-32.0 [facility] Chloride assayOrdered By: Judy Chow on 03-01-2025 Chloride [Moles/Vol] 105 mmol/L 98-108 [facility] Comprehensive Metabolic Prof ilon 03-01-2025 Albumin [Mass/Vol] 3.7 g/dL Normal 3.4-4.8 [facility] Comment on above: Performed By: #### L 500.4050, L501.2300, L501.5200, L100.0100 #### [facility] [address] [place], [address] Albumin/Globulin [Mass ratio] 1.7 {ratio} Normal 0.9-2.4 [facility] Comment on above: Performed By: #### L 500.4050, L501.2300, L501.5200, L100.0100 #### [facility] [address] [place], [address] ALK PHOS 56 U/L Normal 35-104 [facility] Comment on above: Performed By: #### L 500.4050, L501.2300, L501.5200, L100.0100 #### [facility] [address] [place], [address] ALT [Catalytic activity/Vol] 12 U/L Normal <=34 [facility] Comment on above: Performed By: #### L 500.4050, L501.2300, L501.5200, L100.0100 #### [facility] [address] [place], [address] AST [Catalytic activity/Vol] 23 U/L Normal <=31 [facility] Comment on above: Performed By: #### L 500.4050, L501.2300, L501.5200, L100.0100 #### [facility] [address] [place], [address] Bilirubin [Mass/Vol] 0.31 mg/dL Normal 0.00-1.30 [facility] Comment on above: Performed By: #### L 500.4050, L501.2300, L501.5200, L100.0100 #### [facility] [address] [place], [address] BUN/CRE 20.7 RATIO High 10-20 [facility] Comment on above: Performed By: #### L 500.4050, L501.2300, L501.5200, L100.0100 #### [facility] [address] [place], [address] Calcium [Mass/Vol] 8.7 mg/dL Normal 7.6-11.0 [facility] Comment on above: Performed By: #### L 500.4050, L501.2300, L501.5200, L100.0100 #### [facility] [address] [place], [address] Chloride [Moles/Vol] 105 mmol/L Normal 98-108 [facility] Comment on above: Performed By: #### L 500.4050, L501.2300, L501.5200, L100.0100 #### [facility] [address] [place], [address] CO2 [Moles/Vol] 26.8 mmol/L Normal 21.0-32.0 [facility] Comment on above: Performed By: #### L 500.4050, L501.2300, L501.5200, L100.0100 #### [facility] [address] [place], [address] Creatinine [Mass/Vol] 0.87 mg/dL Normal 0.70-1.20 [facility] Comment on above: Performed By: #### L 500.4050, L501.2300, L501.5200, L100.0100 #### [facility] [address] [place], [address] ECRCL 55.46 ml/min Normal 50-250 [facility] Comment on above: Performed By: #### L 500.4050, L501.2300, L501.5200, L100.0100 #### [facility] [address] [place], [address] GAP 8 Normal 5-15 [facility] Comment on above: Performed By: #### L 500.4050, L501.2300, L501.5200, L100.0100 #### [facility] [address] [place], [address] GFR/1.73 sq M.predicted among non-blacks MDRD (S/P/Bld) [Vol rate/Area] 75 mL/min/{1.73_m2} Normal >60 [facility] Comment on above: Result Comment: mL/m in/1.73m2 CKD-EPI Creatinine Equation (2020) Performed By: #### L 500.4050, L501.2300, L501.5200, L100.0100 #### [facility] [address] [place], [address] Globulin (S) [Mass/Vol] 2.1 g/dL Low 2.2-4.2 [facility] Comment on above: Performed By: #### L 500.4050, L501.2300, L501.5200, L100.0100 #### [facility] [address] [place], [address] Glucose [Mass/Vol] 100 mg/dL High 70-99 [facility] Comment on above: Performed By: #### L 500.4050, L501.2300, L501.5200, L100.0100 #### [facility] [address] [place], [address] Potassium [Moles/Vol] 4.2 mmol/L Normal 3.3-5.1 [facility] Comment on above: Performed By: #### L 500.4050, L501.2300, L501.5200, L100.0100 #### [facility] [address] [place], [address] Sodium [Moles/Vol] 140 mmol/L Normal 133-145 [facility] Comment on above: Performed By: #### L 500.4050, L501.2300, L501.5200, L100.0100 #### [facility] [address] [place], [address] T PROT 5.8 g/dL Low 5.9-8.4 [facility] Comment on above: Performed By: #### L 500.4050, L501.2300, L501.5200, L100.0100 #### [facility] [address] [place], [address] Urea nitrogen [Mass/Vol] 18 mg/dL Normal 4-19 [facility] Comment on above: Performed By: #### L 500.4050, L501.2300, L501.5200, L100.0100 #### [facility] [address] [place], [address] Discharge Instructionon 02-02 Discharge Instruction [facility] Medical Records Department [address] [place] [address] Instructions for Home/Discharge Instructions 03/01/25 0932 MR#: [id number] Acct: [id number] Name: AMIE RYAN Rep #: [id number] : 1960 64 From: Ruben Whitley DO PCP: Dr. Renato Bonilla MD Status:ADM IN Discharge Instructions DC O2, CPAP, BIPAP needs Home O2 Discharge instructions: No Dressing / Incision Discharge Activity: No Restrictions Follow Up Care Test Results: Test results from this visit will be discussed in further detail at your follow-up appointment, if applicable. Discharge Plan Admission Admit Date/Time: 02/28/25 11:27 Primary Reason for Your Visit: fatigue and dark stools Attending Provider: Ruben Whitley Primary Care Provider: Renato Bonilla Chi Consulting Providers: Erik Hylton; Joés Luis Leach; Melinda Cummings; Niecy Radford; Yuki Tinajero; Tracy Chow Instructions Additional Instructions / Restrictions: Please start taking the following medications: ??? Pantoprazole 40 mg twice daily ??? Sucralfate 1 g 3 times daily before meals for 1 month Please hold the following medications: ??? Aspirin: Hold on taking this for 1 month to allow your stomach ulcer to heal ??? Amlodipine and losartan: Your blood pressures were in low normal range here. Hold on taking these blood pressure medications until follow-up with your primary care doctor. Please call the GI office soon to schedule a follow-up appointment. Discharge Orders/Prescriptions Prescriptions: Continued magnesium oxide 400 mg magnesium tablet 400 mg PO DAILY cyclobenzaprine 10 mg tablet 10 mg PO DAILY PRN (Reason: muscle spasm) atorvastatin 40 mg tablet 40 mg PO QHS Qty: 30 2RF calcium carbonate [Calcium 600] 600 mg calcium (1,500 mg) tablet 600 mg PO DAILY ferrous sulfate [FeroSul] 325 mg (65 mg iron) tablet 325 mg PO Q OTHER DAY cholecalciferol (vitamin D3) [Vitamin D3] 25 mcg (1,000 unit) tablet 25 mcg PO DAILY Gemtesa 75 mg tablet 75 mg PO DAILY pantoprazole 40 mg tablet,delayed release (DR/EC) 40 mg PO BID 90 Days Qty: 180 0RF Changed sucralfate 1 gram tablet 1 g PO TID 30 Days Qty: 90 0RF Held aspirin [Adult Aspirin Regimen] 81 mg tablet,delayed release (DR/EC) 81 mg PO DAILY Hold Instructions: Resume on 04/02/25. Please hold for 1 month to allow the your stomach ulcer to heal. losartan 50 mg tablet 50 mg PO DAILY Qty: 90 3RF Hold Instructions: Resume on 03/17/25. amlodipine 5 mg tablet 5 mg PO DAILY Qty: 90 3RF Hold Instructions: Resume on 03/17/25. Referrals / Follow Up: José Luis Leach DO [Med Staff - Active Staff] - Renato Bonilla Chi, MD [Primary Care Provider] - Disposition Disposition (needs filled in before D/C Order can be placed): Home, Self Care 03/01/25 1020 Ruben Whitley DO CC: FOOD DEMONSTRATORElidia Cummings; FOOD DEMONSTRATOR-Shar Radford; Dr. Tracy Chow DO; Dr. Erik Hylton MD; Dr. Renato Bonilla MD; KISHA Lance; José Luis Leach DO Signed Normal [facility] Eosinophil percentageOrdered By: Tracy Chow on 03-01-2025 Eosinophils/100 WBC (Bld) 5.7 % High 0-5 [facility] Erythrocyte distribution wid th ratioOrdered By: Tracy Chow on 03-01-2025 Erythrocyte distribution width (RBC) [Ratio] 14.9 % High 11.6-14.6 [facility] Erythrocyte distribution wid th standard deviationOrdered By: Tracy Chow on 03-01-2025 Erythrocyte distribution width (RBC) [Ratio] 50.8 fl High 35.1-43.9 [facility] Glomerular filtration rate ( GFR) estimation/1.73 sq m using serum, plasma, or whole bOrdered By: Tracy Chow on 03-01-2025 GFR/1.73 sq M.predicted among non-blacks MDRD (S/P/Bld) [Vol rate/Area] 75 mL/min/{1.73_m2} >60 [facility] Comment on above: mL/min/1.73m2 CKD-EP I Creatinine Equation (2020) HH, Hemoglobin AND Hematocri ton 03-01-2025 Hematocrit (Bld) [Volume fraction] 23.5 % Low 37-47 [facility] Comment on above: Performed By: #### L 100.0100, BTS #### [facility] [address] [place], [address] Hemoglobin (Bld) [Mass/Vol] 8.2 g/dL Low 12.0-15.0 [facility] Comment on above: Performed By: #### L 100.0100, BTS #### [facility] [address] [place], [address] Hematocrit Auto (Bld) [Volum e fraction]Ordered By: Tracy Chow on 03-01-2025 Hematocrit (Bld) [Volume fraction] 26.5 % Low 37-47 [facility] Hemoglobin measurementOrdere d By: Tracy Chow on 03-01-2025 Hemoglobin (Bld) [Mass/Vol] 9.0 g/dL Low 12.0-15.0 [facility] Immature granulocytes/100 WB C Auto (Bld)Ordered By: Tracy Chow on 03-01-2025 Immature granulocytes/100 WBC (Bld) 0.900 % 0.0-0.9 [facility] Comment on above: IG% - Immature Granu locytes (promyelocytes, myelocytes and metamyelocytes) > 1% indicates that a LEFT SHIFT is Present. Laboratory - Chemistry and C hemistry - challengeOrdered By: Tracy Chow on 03-01-2025 AST [Catalytic activity/Vol] 23 U/L <32 [facility] MCV (mean corpuscular volume ) determinationOrdered By: Tracy Chow on 03-01-2025 MCV (RBC) [Entitic vol] 94.0 fL 81-99 [facility] Magnesiumon 03-01-2025 Magnesium [Mass/Vol] 2.3 mg/dL High 1.5-2.2 [facility] Comment on above: Performed By: #### L 100.0100, BTS #### [facility] [address] [place], [address] Magnesium measurement (mass/ volume)Ordered By: Tracy Chow on 03-01-2025 Magnesium (Unsp spec) [Mass/Vol] 2.3 mg/dL High 1.5-2.2 [facility] Mean corpuscular hemoglobin (MCH) determinationOrdered By: Tracy Chow on 03-01-2025 MCH (RBC) [Entitic mass] 31.9 pg 27.0-32.0 [facility] Mean corpuscular hemoglobin concentration (MCHC) determinationOrdered By: Tracy Chow on 03-01-2025 MCHC (RBC) [Mass/Vol] 34.0 g/dL 32-36 [facility] Mean platelet volume determi nationOrdered By: Tracy Chow on 03-01-2025 Platelet mean volume (Bld) [Entitic vol] 8.5 fL 6.2-12.0 [facility] Monocyte percentageOrdered B y: Tracy Chow on 03-01-2025 Monocytes/100 WBC (Bld) 12.2 % High 0-10 [facility] Neutrophil percentageOrdered By: Tracy Chow on 03-01-2025 Neutrophils/100 WBC (Bld) 53.9 % 47-70 [facility] Nucleated red blood cell per centageOrdered By: Tracy Chow on 03-01-2025 Nucleated RBC/100 WBC (Bld) [Ratio] 0 % 0-5 [facility] Phosphoruson 03-01-2025 Phosphate [Mass/Vol] 3.2 mg/dL Normal 2.7-4.5 [facility] Comment on above: Performed By: #### L 100.0100, BTS #### [facility] [address] [place], [address] Platelet countOrdered By: Judy Chow on 03-01-2025 Platelets (Bld) [#/Vol] 238 10*3/uL 150-450 [facility] Potassium measurement (mass/ volume)Ordered By: Tracy Chow on 03-01-2025 Potassium (Unsp spec) [Mass/Vol] 4.2 mmol/L 3.3-5.1 [facility] RBC Auto (Bld) [#/Vol]Ordere d By: Tracy Chow on 03-01-2025 RBC (Bld) [#/Vol] 2.82 10*6/uL Low 4.2-5.4 [facility] Serum creatinine measurement (mass/volume)Ordered By: Tracy Chow on 03-01-2025 Creatinine [Mass/Vol] 0.87 mg/dL 0.70-1.20 [facility] Serum globulin measurementOr dered By: Tracy Chow on 03-01-2025 Globulin (S) [Mass/Vol] 2.1 g/dL Low 2.2-4.2 [facility] Serum glucose measurement (m ass/volume)Ordered By: Tracy Chow on 03-01-2025 Glucose [Mass/Vol] 100 mg/dL High 70-99 [facility] Serum or plasma alanine maria otransferase (ALT) measurementOrdered By: Tracy Chow on 03-01-2025 ALT [Catalytic activity/Vol] 12 U/L <35 [facility] Serum or plasma albumin tejas urement (mass/volume)Ordered By: Tracy Chow on 03-01-2025 Albumin [Mass/Vol] 3.7 g/dL 3.4-4.8 [facility] Serum or plasma albumin/glob ulin mass ratioOrdered By: Tracy Chow on 03-01-2025 Albumin/Globulin [Mass ratio] 1.7 {ratio} 0.9-2.4 [facility] Serum or plasma alkaline jacki sphatase measurementOrdered By: Tracy Chow on 03-01-2025 ALP [Catalytic activity/Vol] 56 U/L 35-104 [facility] Serum or plasma calcium tejas urement (mass/volume)Ordered By: Tracy Chow on 03-01-2025 Calcium [Mass/Vol] 8.7 mg/dL 7.6-11.0 [facility] Serum or plasma urea nitroge n measurement (mass/volume)Ordered By: Tracy Chow on 03-01-2025 Urea nitrogen [Mass/Vol] 18 mg/dL 4-19 [facility] Sodium levelOrdered By: Marie Chow on 03-01-2025 Sodium [Moles/Vol] 140 mmol/L 133-145 [facility] Total proteinOrdered By: Claudia Chow on 03-01-2025 Protein [Mass/Vol] 5.8 g/dL Low 5.9-8.4 [facility] White blood cell (WBC) count Ordered By: Tracy Chow on 03-01-2025 WBC (Bld) [#/Vol] 5.8 10*3/uL 4.4-11.0 [facility] 12 Lead EKGon 02-28-2025 12 Lead EKG [facility] [address] [place] [address] 12 Lead EKG 02/28/25 1256 MR#: [id number] Acct: [id number] Name: AMIE RYAN Rep #: [id number] : 1960 64 From: Ed Leyva MD Attending Dr: Dr. Ruben Whitley, DO Status : DIS IN Ordering Dr: Zelalem Sifuentes MD Date: 02/28/25 Location: [facility] Sex: F C Admitted: 02/28/25 Test Reason : PREOP Blood Pressure : */* mmHG Vent. Rate : 67 BPM Atrial Rate : 67 BPM P-R Int : 178 ms QRS Dur : 82 ms QT Int : 436 ms P-R-T Axes : 73 19 105 degrees QTcB Int : 460 ms Normal sinus rhythm Low voltage QRS Septal infarct , age undetermined ST T wave abnormality, consider lateral ischemia Abnormal ECG No previous ECGs available Confirmed by Ed Leyva ([id number]), editorial specialist LAUREN MERAZ ([id number]) on 03/04/2025 11:14:35 AM Referred By: RAD Confirmed By: Ed Leyva 03/04/25 1114 Date Ed Leyva MD CC: Dr. Ruben Whitley DO; Dr. Zelalem Sifuentes MD; Dr. Renato Bonilla MD Signed [facility] 12 Lead EKG [facility] [address] [place] [address] 12 Lead EKG 02/28/25 1011 MR#: [id number] Acct: [id number] Name: AMIE RYNA Rep #: [id number] : 1960 64 From: Ed Leyva MD Attending Dr: Dr. Ruben Whitley DO Status : DIS IN Ordering Dr: Jailene Pierre MD Date: 02/28/25 [place] [facility] [place] Sex: F C Admitted: 02/28/25 Test Reason : ABN LABS Blood Pressure : */* mmHG Vent. Rate : 65 BPM Atrial Rate : 65 BPM P-R Int : 180 ms QRS Dur : 78 ms QT Int : 402 ms P-R-T Axes : 83 16 84 degrees QTcB Int : 418 ms Normal sinus rhythm Low voltage QRS Cannot rule out Septal infarct , age undetermined Abnormal ECG Confirmed by dE Leyva ([id number]), editorial specialist LAUREN MERAZ ([id number]) on 03/04/2025 9:56:42 AM Referred By: Confirmed By: Ed Leyva 03/04/25 0956 Date Ed Leyva MD CC: Dr. Ruben Whitley DO; Dr. Jailene Pierre MD; Dr. Renato Bonilla MD Signed [facility] Absolute lymphocyte countOrd ered By: Jailene Pierre on 02-28-2025 Lymphocytes Auto (Unsp spec) [#/Vol] 1.58 10*3/uL 0.83-4.51 [facility] Absolute neutrophil countOrd ered By: Jailene Pierre on 02-28-2025 Neutrophils (Bld) [#/Vol] 3.3 10*3/uL 2.0-7.7 [facility] Anion gap in Serum or Plasma Ordered By: Jailene Pierre on 02-28-2025 Anion gap [Moles/Vol] 9 mmol/L 5-15 [facility] Automated lymphocyte count a s percentage of total leukocytesOrdered By: Jailene Pierre on 02-28-2025 Lymphocytes/100 WBC Auto (Unsp spec) 27.7 % 19-41 [facility] BRCon 02-28-2025 RC Normal [facility] Comment on above: Result Comment: [id number] OP RC TRANSFUSED 02/28/25 1244 Performed By: #### L 500.4050, L100.0100, L501.9520, L506.1001, L500.4100 #### [facility] [address] [place], [place], [address] Result Comment: [id number] OP RC TRANSFUSED 02/28/25 1645 BUN/creatinine ratioOrdered By: Jailene Pierre on 02-28-2025 Urea nitrogen/Creatinine [Mass ratio] 41.6 mg/mg High 10-20 [facility] Basophil percentageOrdered B y: Jailene Pierre on 02-28-2025 Basophils/100 WBC (Bld) 0.4 % 0-1 [facility] Bilirubin Test strip Ql (U)O rdered By: Jailene Pierre on 02-28-2025 Bilirubin Ql (U) Negative Negative [facility] Bilirubin, totalOrdered By: Jailene Pierre on 02-28-2025 Bilirubin [Mass/Vol] 0.20 mg/dL 0.00-1.30 [facility] CBC W/Diff, Automatedon 02-01 Absolute Lymph 1.58 X10 3/uL Normal 0.83-4.51 [facility] Comment on above: Performed By: #### L 100.0100, BTS #### [facility] [address] [place], [address] Absolute Neut 3.3 X10 3/uL Normal 2.0-7.7 [facility] Comment on above: Performed By: #### L 100.0100, BTS #### [facility] [address] [place], [address] Basophils/100 WBC (Bld) 0.4 % Normal 0-1 [facility] Comment on above: Performed By: #### L 100.0100, BTS #### [facility] [address] [place], [address] Eosinophils/100 WBC (Bld) 3.3 % Normal 0-5 [facility] Comment on above: Performed By: #### L 100.0100, BTS #### [facility] [address] [place], [address] Erythrocyte distribution width (RBC) [Ratio] 13.6 % Normal 11.6-14.6 [facility] Comment on above: Performed By: #### L 100.0100, BTS #### [facility] [address] [place], [address] Hematocrit (Bld) [Volume fraction] 20.0 % Low 37-47 [facility] Comment on above: Performed By: #### L 100.0100, BTS #### [facility] [address] [place], [address] Hemoglobin (Bld) [Mass/Vol] 6.7 g/dL Low 12.0-15.0 [facility] Comment on above: Performed By: #### L 100.0100, BTS #### [facility] [address] [place], [address] IG% 1.200 High 0.0-0.9 [facility] Comment on above: Result Comment: IG% - Immature Granulocytes (promyelocytes, myelocytes and metamyelocytes) > 1% indicates that a LEFT SHIFT is Present. Performed By: #### L 100.0100, BTS #### [facility] [address] [place], [address] Lymphocytes/100 WBC (Bld) 27.7 % Normal 19-41 [facility] Comment on above: Performed By: #### L 100.0100, BTS #### [facility] [address] [place], [address] MCH (RBC) [Entitic mass] 32.7 pg High 27.0-32.0 [facility] Comment on above: Performed By: #### L 100.0100, BTS #### [facility] [address] [place], [address] MCHC (RBC) [Mass/Vol] 33.5 g/dL Normal 32-36 [facility] Comment on above: Performed By: #### L 100.0100, BTS #### [facility] [address] [place], [address] MCV (RBC) [Entitic vol] 97.6 fL Normal 81-99 [facility] Comment on above: Performed By: #### L 100.0100, BTS #### [facility] [address] [place], [address] Monocytes/100 WBC (Bld) 10.5 % High 0-10 [facility] Comment on above: Performed By: #### L 100.0100, BTS #### [facility] [address] [place], [address] Neutrophils/100 WBC (Bld) 56.9 % Normal 47-70 [facility] Comment on above: Performed By: #### L 100.0100, BTS #### [facility] [address] [place], [address] Nucleated RBC (Bld) [#/Vol] 0.5 10*3/uL Normal 0-5 [facility] Comment on above: Performed By: #### L 100.0100, BTS #### [facility] [address] [place], [address] Platelet mean volume (Bld) [Entitic vol] 8.8 fL Normal 6.2-12.0 [facility] Comment on above: Performed By: #### L 100.0100, BTS #### [facility] [address] [place], [address] Platelets (Bld) [#/Vol] 255 10*3/uL Normal 150-450 [facility] Comment on above: Performed By: #### L 100.0100, BTS #### [facility] [address] [place], [address] RBC (Bld) [#/Vol] 2.05 10*6/uL Low 4.2-5.4 [facility] Comment on above: Performed By: #### L 100.0100, BTS #### [facility] [address] [place], [address] RDW SD 48.3 fl High 35.1-43.9 [facility] Comment on above: Performed By: #### L 100.0100, BTS #### [facility] [address] [place], [address] WBC (Bld) [#/Vol] 5.7 10*3/uL Normal 4.4-11.0 [facility] Comment on above: Performed By: #### L 100.0100, BTS #### [facility] [address] [place], [address] Carbon dioxide, total [Moles /volume] in Central venous bloodOrdered By: Jailene Pierre on 02-28-2025 CO2 [Moles/Vol] 24.3 mmol/L 21.0-32.0 [facility] Chloride assayOrdered By: Daquan Pierre on 02-28-2025 Chloride [Moles/Vol] 102 mmol/L 98-108 [facility] Comprehensive Metabolic Prof ilon 02-28-2025 Albumin [Mass/Vol] 3.9 g/dL Normal 3.4-4.8 [facility] Comment on above: Performed By: #### L 100.0100, BTS #### [facility] [address] [place], [address] Albumin/Globulin [Mass ratio] 1.9 {ratio} Normal 0.9-2.4 [facility] Comment on above: Performed By: #### L 100.0100, BTS #### [facility] [address] [place], [address] ALK PHOS 58 U/L Normal 35-104 [facility] Comment on above: Performed By: #### L 100.0100, BTS #### [facility] [address] [place], [address] ALT [Catalytic activity/Vol] 14 U/L Normal <=34 [facility] Comment on above: Performed By: #### L 100.0100, BTS #### [facility] [address] [place], [address] AST [Catalytic activity/Vol] 22 U/L Normal <=31 [facility] Comment on above: Performed By: #### L 100.0100, BTS #### [facility] [address] [place], [address] Bilirubin [Mass/Vol] 0.20 mg/dL Normal 0.00-1.30 [facility] Comment on above: Performed By: #### L 100.0100, BTS #### [facility] [address] [place], [address] BUN/CRE 41.6 RATIO High 10-20 [facility] Comment on above: Performed By: #### L 100.0100, BTS #### [facility] [address] [place], [address] Calcium [Mass/Vol] 8.6 mg/dL Normal 7.6-11.0 [facility] Comment on above: Performed By: #### L 100.0100, BTS #### [facility] [address] [place], [address] Chloride [Moles/Vol] 102 mmol/L Normal 98-108 [facility] Comment on above: Performed By: #### L 100.0100, BTS #### [facility] [address] [place], [address] CO2 [Moles/Vol] 24.3 mmol/L Normal 21.0-32.0 [facility] Comment on above: Performed By: #### L 100.0100, BTS #### [facility] [address] [place], [address] Creatinine [Mass/Vol] 0.82 mg/dL Normal 0.70-1.20 [facility] Comment on above: Performed By: #### L 100.0100, BTS #### [facility] [address] [place], [address] ECRCL 58.84 ml/min Normal 50-250 [facility] Comment on above: Performed By: #### L 100.0100, BTS #### [facility] [address] [place], [address] GAP 9 Normal 5-15 [facility] Comment on above: Performed By: #### L 100.0100, BTS #### [facility] [address] [place], [address] GFR/1.73 sq M.predicted among non-blacks MDRD (S/P/Bld) [Vol rate/Area] 81 mL/min/{1.73_m2} Normal >60 [facility] Comment on above: Result Comment: mL/m in/1.73m2 CKD-EPI Creatinine Equation (2020) Performed By: #### L 100.0100, BTS #### [facility] [address] [place], [address] Globulin (S) [Mass/Vol] 2.0 g/dL Low 2.2-4.2 [facility] Comment on above: Performed By: #### L 100.0100, BTS #### [facility] [address] [place], [address] Glucose [Mass/Vol] 107 mg/dL High 70-99 [facility] Comment on above: Performed By: #### L 100.0100, BTS #### [facility] [address] [place], [address] Potassium [Moles/Vol] 4.2 mmol/L Normal 3.3-5.1 [facility] Comment on above: Performed By: #### L 100.0100, BTS #### [facility] [address] [place], [address] Sodium [Moles/Vol] 136 mmol/L Normal 133-145 [facility] Comment on above: Performed By: #### L 100.0100, BTS #### [facility] [address] [place], [address] T PROT 5.9 g/dL Normal 5.9-8.4 [facility] Comment on above: Performed By: #### L 100.0100, BTS #### [facility] [address] [place], [address] Urea nitrogen [Mass/Vol] 34 mg/dL High 4-19 [facility] Comment on above: Performed By: #### L 100.0100, BTS #### [facility] [address] [place], [address] Emergency Department Summary on 02-28-2025 Emergency Department Summary [facility] Medical Records Department [address] [place] [address] Emergency Department Summary 02/28/25 MR#: [id number] Acct: [id number] Name: AMIE RYAN Rep #: [id number] : 1960 64 From: Jailene Pierre MD PCP: Dr. Renato Bonilla MD Status:REG ER Location: ED HPI History of Present Illness Chief Complaint: Abn Labs Narrative Narrative: Patient is a 64-year-old female presenting to the emergency department for generalized fatigue, mild shortness of breath and abnormal outpatient hemoglobin. She is not on OAC. Patient states that on Monday she was having similar symptoms, she went to [facility] emergency department where her hemoglobin was tested and it dropped from 11 to 7. She got 1 unit of PRBC and was observed overnight. There was no EGD or colonoscopy done. Reportedly at that time she had a fecal occult that was positive. She states that over the past few days she has continued to notice melanotic stool as well as generalized fatigue. She states that she called her primary care doctor today while she was at work and he told her to come be evaluated. She denies any abdominal pain, nausea, vomiting, diarrhea. States that she does take iron supplements 3 times a week but her stool looks different than normal. Reports there is no bright red blood per rectum. Reports her last EGD and colonoscopy were in [address] Bennett. Patient reports that she has never received a blood transfusion before this and has never had a GI bleed. [facility] Medical History Coronary artery disease Raynauds phenomenon Dyslipidemia Palpitations Hypokalemia Abnormal findings diagnostic imaging of heart and coronary circulation (06/07/23) Atherosclerotic heart disease of [place] coronary artery without angina pectoris (06/07/23) 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) Anxiety Shortness of breath on exertion History of echocardiogram History of stress test Cardiology follow-up encounter History of irregular heartbeat Guaiac positive stools Abnormal ECG Anemia Blood in stool Pseudoaneurysm of aorta Fatigue Syncope Vitamin D deficiency Major depressive disorder, recurrent episode, in full remission Lightheadedness Numbness and tingling in both hands Bradycardia Wears contact lenses Post-menopausal Excessive bleeding Easy bruising Restless legs Back pain History of IBS Former smoker Encounter for screening for malignant neoplasm of colon Muscle spasm Hyperlipidemia Hypertension Home Medications ???Medication ???Instructions ???Recorded ???Last Taken ???Type magnesium oxide 400 mg PO DAILY 11/12/21 Unknown H istory cyclobenzaprine 10 mg tablet 10 mg PO DAILY PRN muscle spasm Unknown History atorvastatin 40 mg tablet 40 mg PO QHS #30 tabs 05/17/23 Unk nown Rx cholecalciferol (vitamin D3) 25 25 mcg PO DAILY 05/31/23 Unknown H istory mcg (1,000 unit) tablet (Vitamin D3) aspirin 81 mg tablet,delayed 81 mg PO DAILY 06/12/23 06/15/23 H istory release (Adult Aspirin Regimen) calcium carbonate (Calcium 600) 600 mg PO DAILY 02/22/24 Unknown H istory ferrous sulfate 325 mg (65 mg 325 mg PO Q OTHER DAY 02/22/24 Unk nown History iron) tablet (FeroSul) losartan 50 mg tablet 50 mg PO DAILY #90 tabs 06/28/24 U nknown Rx Held on 02/28/25. Instructions: per t report amlodipine 5 mg tablet 5 mg PO DAILY #90 tabs 02/19/25 Un known Rx Held on 02/28/25. Instructions: per pt preport Allergy/AdvReac Type Severity Reaction Status Date / Time No Known Allergies Allergy Verified 02/28/25 09:22 Family History Mother Hypertension Cancer Arthritis CVA (cerebral vascular accident) Stomach ulcer Father Cancer bladder Grandmother Cancer Uncle Prostate carcinoma Surgical History Stented coronary artery (06/15/23) Hx of hysterectomy Hx of colonoscopy Social History household members: spouse Smoking Status: Former smoker alcohol intake: former year quit: 1990 substance use type: does not use caffeine: Yes Type: carbonated beverages Number of servings: 1 ROS ROS ED ROS Narrative see HPI EXAM Physical Exam Narrative Exam Narrative: Vital signs: Reviewed General: Alert and oriented. No acute distress HEENT: Head is normocephalic and atraumatic, sinuses nontender, pupils equal round and reactive. Nares are patent. Oropharynx and throat exams normal. Neck: Supple without lymphadenopathy nontender Cardiovascular: Regular rate and rhythm, no murmurs. No rubs or gallops. Normal S1 and S2 Respiratory: Clear to auscultation bilaterally. No wheezes, (more content not included)... Normal [facility] Eosinophil percentageOrdered By: Jailene Pierre on 02-28-2025 Eosinophils/100 WBC (Bld) 3.3 % 0-5 [facility] Erythrocyte distribution wid th ratioOrdered By: Jailenegeovanna Pierre on 02-28-2025 Erythrocyte distribution width (RBC) [Ratio] 13.6 % 11.6-14.6 [facility] Erythrocyte distribution wid th standard deviationOrdered By: Jailene Pierre on 02-28-2025 Erythrocyte distribution width (RBC) [Ratio] 48.3 fl High 35.1-43.9 [facility] Glomerular filtration rate ( GFR) estimation/1.73 sq m using serum, plasma, or whole bOrdered By: Jailene Pierre on 02-28-2025 GFR/1.73 sq M.predicted among non-blacks MDRD (S/P/Bld) [Vol rate/Area] 81 mL/min/{1.73_m2} >60 [facility] Comment on above: mL/min/1.73m2 CKD-EP I Creatinine Equation (2020) H AND P Exam - [place] 02-28-2025 H&P Exam - Hospitalist [facility] Medical Records Department [address] [place] [address] H P Exam - Hospitalist 02/28/25 1123 MR#: [id number] Acct: [id number] Name: AMIE RYAN Rep #: [id number] : 1960 64 From: Tracy Chow DO PCP: Dr. Renato Bonilla MD Status:ADM IN [place] [facility] [place] HPI - General General Date of Admission: 02/28/25 Date of Service: 02/28/25 Chief Complaint: Abnormal outpatient lab HPI Narrative AMIE RYAN, is a 64 F who presented to the emergency department at [facility] on 02/28/2025 due to abnormal labs. The patient was having generalized fatigue and mild shortness of breath and an outpatient CBC was drawn and she was noted to be markedly anemic. She reported on Monday she was having similar symptoms and went to [facility] and seen in the emergency department where her hemoglobin was found to be 7. It had previously been 11-12. She was given 1 unit of packed red blood cells and observed overnight. No intervention was pursued and she was discharged. She indicates she had fecal, positive stools at that time. She reported over the past few days she has continued to have melanotic stools as well as generalized fatigue and shortness of breath. She called her primary care physician on the day of admission and she was told to be evaluated in the emergency department. She denied abdominal pain, nausea or vomiting. No stool changes at the time of presentation. She is on iron supplementation every other day. She is on aspirin at baseline but takes no other blood thinners or antiplatelet therapy. She does have previous cardiac stent in 2022. She did have an EGD and colonoscopy in [address] Bennett. She has never had GI bleed previously. The majority of the history was taken from the emergency department H P as the patient was seen Vital signs on presentation showed a temperature of 97.6, heart rate 83, respiratory was 14, blood pressure was 126/70 and pulse ox was 98% on room air. CBC showed a hemoglobin of 6.7 but was otherwise unremarkable. Chemistry panel was unremarkable other than the elevated BUN to creatinine ratio with a BUN of 34 and a serum creatinine of 0.82 with a ratio 41.6. Given these findings upper GI bleed was suspected. Gastroenterology was contacted by the emergency department and the plan is for EGD later today. 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) Anxiety Shortness of breath on exertion History of echocardiogram History of stress test Cardiology follow-up encounter History of irregular heartbeat Guaiac positive stools Abnormal ECG Anemia Blood in stool Pseudoaneurysm of aorta Fatigue Syncope Vitamin D deficiency Major depressive disorder, recurrent episode, in full remission Lightheadedness Numbness and tingling in both hands Bradycardia Wears contact lenses Post-menopausal Excessive bleeding Easy bruising Restless legs Back pain History of IBS Former smoker Encounter for screening for malignant neoplasm of colon Muscle spasm Hyperlipidemia Hypertension Home Medications ???Medication ???Instructions ???Recorded ???Last Taken ???Type magnesium oxide 400 mg PO DAILY 11/12/21 Unknown H istory cyclobenzaprine 10 mg tablet 10 mg PO DAILY PRN muscle spasm Unknown History atorvastatin 40 mg tablet 40 mg PO QHS #30 tabs 05/17/23 Unk nown Rx cholecalciferol (vitamin D3) 25 25 mcg PO DAILY 05/31/23 Unknown H istory mcg (1,000 unit) tablet (Vitamin D3) aspirin 81 mg tablet,delayed 81 mg PO DAILY 06/12/23 06/15/23 H istory release (Adult Aspirin Regimen) calcium carbonate (Calcium 600) 600 mg PO DAILY 02/22/24 Unknown H istory ferrous sulfate 325 mg (65 mg 325 mg PO Q OTHER DAY 02/22/24 Unk nown History iron) tablet (FeroSul) losartan 50 mg tablet 50 mg PO DAILY #90 tabs 06/28/24 U nknown Rx Held on 02/28/25. Instructions: per t report amlodipine 5 mg tablet 5 mg PO DAILY #90 tabs 02/19/25 Un known Rx Held on 02/28/25. Instructions: per pt preport pantoprazole 40 mg tablet,delayed 40 mg PO BID 02/28/25 Unknown His tory release sucralfate 1 gram tablet 1 g PO BID 02/28/25 Unknown Histor y vibegron 75 mg tablet (Gemtesa) 75 mg PO DAILY 02/28/25 Unknown Hi story Allergy/AdvReac Type Severity Reaction Status Date / Time No Known Allergies Allergy Verified 02/28/25 09:22 Family History Mother H (more content not included)... Normal [facility] HH, Hemoglobin AND Hematocri ton 02-28-2025 Hematocrit (Bld) [Volume fraction] 25.5 % Low [address] Comment on above: Order Comment: A Performed By: #### L 100.0100, BTS #### [facility] [address] [place], [address] Hemoglobin (Bld) [Mass/Vol] 8.9 g/dL Low 12.0-15.0 [facility] Comment on above: Order Comment: A Performed By: #### L 100.0100, BTS #### [facility] [address] [place], [address] Hematocrit (Bld) [Volume fraction] 21.1 % Low [address] [place] [address] Comment on above: Order Comment: A Performed By: #### L 100.0100, BTS #### [facility] [address] [place], [address] Hemoglobin (Bld) [Mass/Vol] 7.0 g/dL Low 12.0-15.0 [facility] Comment on above: Order Comment: A Performed By: #### L 100.0100, BTS #### [facility] [address] [place], [address] Hematocrit Auto (Bld) [Volum e fraction]Ordered By: Jailene Pierre on 02-28-2025 Hematocrit (Bld) [Volume fraction] 20.0 % Low [address] [place] [address] Hemoglobin measurementOrdere d By: Jailene Pierre on 02-28-2025 Hemoglobin (Bld) [Mass/Vol] 6.7 g/dL Low 12.0-15.0 [facility] Immature granulocytes/100 WB C Auto (Bld)Ordered By: Jailene Pierre on 02-28-2025 Immature granulocytes/100 WBC (Bld) 1.200 % High 0.0-0.9 [facility] Comment on above: IG% - Immature Granu locytes (promyelocytes, myelocytes and metamyelocytes) > 1% indicates that a LEFT SHIFT is Present. Ketones Test strip Ql (U)Ord ered By: Jailene Pierre on 02-28-2025 Ketones Ql (U) Negative Negative [facility] L501.4021on 02-28-2025 Trop T High Sen 11 ng/L Normal <=14 [facility] Comment on above: Performed By: #### L 500.4050, L100.0100, L501.9520, L506.1001, L500.4100 #### [facility] [address] [place], [address] Laboratory - Chemistry and C hemistry - challengeOrdered By: Jailene Pierre on 02-28-2025 AST [Catalytic activity/Vol] 22 U/L <32 [facility] MCV (mean corpuscular volume ) determinationOrdered By: Jailene Pierre on 02-28-2025 MCV (RBC) [Entitic vol] 97.6 fL 81-99 [facility] MR/CON.PCM.GIon 02-28-2025 MR/CON.PCM.GI [facility] Medical Records Department [address] [place] [address] Consultation - GI 02/28/25 1301 MR#: [id number] Acct: [id number] Name: AMIE RYAN Rep #: [id number] : 1960 64 From: José Luis Leach DO PCP: Dr. Renato Bonilla MD Status:ADM IN Location: [place] [id number] HPI Consult Data Date of Consult: 02/28/25 HPI Narrative Reason for Consultation: Anemia HPI Narrative: AMIE RYAN, is a 64-year-old female presenting to the emergency department for generalized fatigue, mild shortness of breath and abnormal outpatient hemoglobin. 64-year-old female with a history of coronary artery disease and peripheral artery disease reports increasing fatigue over the past several months. She notes she has less energy for her usual activities, and finds herself more short of breath with mild exertion. Symptoms are progressive. Patient denies overt signs of bleeding, such as black, tarry stools, or excessive bruising. Patient states that on Monday she was having similar symptoms, she went to [facility] emergency department where her hemoglobin was tested and it dropped from 11 to 7. She got 1 unit of PRBC and was observed overnight. She does report that she was fecal occult that was positive. She states that over the past few days she has continued to notice melanotic stool as well as generalized fatigue. She Denies tobacco or illicit drug use. Occasional alcohol use. 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) Anxiety Shortness of breath on exertion History of echocardiogram History of stress test Cardiology follow-up encounter History of irregular heartbeat Guaiac positive stools Abnormal ECG Anemia Blood in stool Pseudoaneurysm of aorta Fatigue Syncope Vitamin D deficiency Major depressive disorder, recurrent episode, in full remission Lightheadedness Numbness and tingling in both hands Bradycardia Wears contact lenses Post-menopausal Excessive bleeding Easy bruising Restless legs Back pain History of IBS Former smoker Encounter for screening for malignant neoplasm of colon Muscle spasm Hyperlipidemia Hypertension Home Medications ???Medication ???Instructions ???Recorded ???Last Taken ???Type magnesium oxide 400 mg PO DAILY 11/12/21 Unknown H istory cyclobenzaprine 10 mg tablet 10 mg PO DAILY PRN muscle spasm Unknown History atorvastatin 40 mg tablet 40 mg PO QHS #30 tabs 05/17/23 Unk nown Rx cholecalciferol (vitamin D3) 25 25 mcg PO DAILY 05/31/23 Unknown H istory mcg (1,000 unit) tablet (Vitamin D3) aspirin 81 mg tablet,delayed 81 mg PO DAILY 06/12/23 06/15/23 H istory release (Adult Aspirin Regimen) calcium carbonate (Calcium 600) 600 mg PO DAILY 02/22/24 Unknown H istory ferrous sulfate 325 mg (65 mg 325 mg PO Q OTHER DAY 02/22/24 Unk nown History iron) tablet (FeroSul) losartan 50 mg tablet 50 mg PO DAILY #90 tabs 06/28/24 U nknown Rx Held on 02/28/25. Instructions: per t report amlodipine 5 mg tablet 5 mg PO DAILY #90 tabs 02/19/25 Un known Rx Held on 02/28/25. Instructions: per pt preport pantoprazole 40 mg tablet,delayed 40 mg PO BID 02/28/25 Unknown His tory release sucralfate 1 gram tablet 1 g PO BID 02/28/25 Unknown Histor y vibegron 75 mg tablet (Gemtesa) 75 mg PO DAILY 02/28/25 Unknown Hi story Allergy/AdvReac Type Severity Reaction Status Date / Time No Known Allergies Allergy Verified 02/28/25 09:22 Family History Mother Hypertension Cancer Arthritis CVA (cerebral vascular accident) Stomach ulcer Father Cancer bladder Grandmother Cancer Uncle Prostate carcinoma Surgical History Stented coronary artery (06/15/23) Hx of hysterectomy Hx of colonoscopy Social History household members: spouse Smoking Status: Former smoker alcohol intake: former year quit: 1990 substance use type: does not use caffeine: Yes Type: carbonated beverages Number of servings: 1 ROS Constitutional Constitutional: Denies fatigue, fever(s), poor appetite, weight gain or weight loss Gastrointestinal Gastrointestinal: Denies belching, bloating, change in bowel habits, change in stool character, chewing difficulty, coffee ground emesis, constipation, cramping, diarrhea, dyspepsia, dysphagia, early satiety, (more content not included)... Normal [facility] MR/POSTOP.MALIKA 02-28-2025 MR/POSTOP.[facility] Medical Records Department [address] [place] [address] Anesthesia Postop Eval I 02/28/25 1517 MR#: [id number] Acct: [id number] Name: AMIE RYAN Rep #: [id number] : 1960 64 From: Cecilia Biswas CRNA PCP: Dr. Renato Bonilla MD Status:ADM IN Y Race: C Location: [place] [address] Anesthesia: Postop Eval I Current Vital Signs Temperature: 98.3 F Pulse Rate: 85 Blood Pressure: 90/69 Respiratory Rate: 18 Pulse Ox: 95 Assessment Airway patent: Yes Spontaneous unlabored respirations: Yes nausea: No Vomiting: No Anesthesia Complication: No Fluid Hydration Crystalloid volume administer (ml): 300 Total IV fluid infused: 300 Progress Note Anesthesia document: Postop Eval 1 completed: Yes 02/28/25 1518 Date Ceciliazheng Biswas SITE LEASING AGENT Cosigner Signature: Date CC: Signed Normal [facility] [id number] 02-28-2025 MR/POSTOPAN2 [place] Medical Records Department [address] [place] [address] Anesthesia Postop Eval II 02/28/25 1529 MR#: [id number] Acct: [id number] Name: AMIE RYAN Rep #: [id number] : 1960 64 From: Zelalem Sifuentes MD PCP: Dr. Renato Bonilla MD Status:ADM IN Y Race: C [place] [facility] [id number] Anesthesia Postop Eval I Sum Postop Eval Completion status Anesthesia document: Postop Eval 1 completed: Yes Anesthesia Postop Eval I Summary Anesthesia Postop Eval I Summary: Anesthesia Postop Eval I: Assessment Summary Airway patent Yes 02/28/25 15:17 SITE LEASING AGENT.CSIR Spontaneous unlabored Yes 02/28/25 15:17 SITE LEASING AGENT.CSIR respirations Mental status nausea No 02/28/25 15:17 SITE LEASING AGENT.CSIR Vomiting No 02/28/25 15:17 SITE LEASING AGENT.CSIR Anesthesia Postop Eval I: Fluid Summary Crystalloid volume administer 300 02/28/25 15:17 SITE LEASING AGENT.CSIR (ml) Colloids volume administered ( ml) Blood Product volume administered (ml) Total IV fluid infused 300 02/28/25 15:17 SITE LEASING AGENT.CSIR Anesthesia Postop Eval I: Summary Notes Anesthesia Complication No 02/28/25 15:17 SITE LEASING AGENT.CSIR Anesthesia Complication Comment: Post-operative progress note Anesthesia: Postop Eval II Evaluation Mental status: Awake Pain Level: 0 nausea: No Vomiting: No 02/28/25 1530 Date Zelalem Sifuentes MD Cosigner Signature: Date CC: Signed Normal [facility] Mean corpuscular hemoglobin (MCH) determinationOrdered By: Jailene Pierre on 02-28-2025 MCH (RBC) [Entitic mass] 32.7 pg High 27.0-32.0 [facility] Mean corpuscular hemoglobin concentration (MCHC) determinationOrdered By: Jailene Pierre on 02-28-2025 MCHC (RBC) [Mass/Vol] 33.5 g/dL 32-36 [facility] Mean platelet volume determi nationOrdered By: Jailene Pierre on 02-28-2025 Platelet mean volume (Bld) [Entitic vol] 8.8 fL 6.2-12.0 [facility] Microscopic analysis of urin e for red blood cells (RBC)Ordered By: Jailene Pierre on 02-28-2025 Microscopic analysis of urine for red blood cells (RBC) 0-5 SEEN /hpf 0-5 [facility] Monocyte percentageOrdered B y: Jailene Pierre on 02-28-2025 Monocytes/100 WBC (Bld) 10.5 % High 0-10 [facility] Mucus LM Ql (Urine sed)Order ed By: Jailene Pierre on 02-28-2025 Mucus Ql (Urine sed) 0 SEEN /hpf [facility] Neutrophil percentageOrdered By: Jailene Pierre on 02-28-2025 Neutrophils/100 WBC (Bld) 56.9 % 47-70 [facility] Nitrite Test strip Ql (U)Ord ered By: Jailene Pierre on 02-28-2025 Nitrite Ql (U) Negative Negative [facility] Nucleated red blood cell per centageOrdered By: Jailene Pierre on 02-28-2025 Nucleated RBC/100 WBC (Bld) [Ratio] 0.5 % 0-5 [facility] Platelet countOrdered By: Daquan Pierre on 02-28-2025 Platelets (Bld) [#/Vol] 255 10*3/uL 150-450 [facility] Potassium measurement (mass/ volume)Ordered By: Jailene Pierre on 02-28-2025 Potassium (Unsp spec) [Mass/Vol] 4.2 mmol/L 3.3-5.1 [facility] Protein Test strip Ql (U)Ord ered By: Jailene Pierre on 02-28-2025 Protein Ql (U) Negative Negative [facility] RBC Auto (Bld) [#/Vol]Ordere d By: Jailene Pierre on 02-28-2025 RBC (Bld) [#/Vol] 2.05 10*6/uL Low 4.2-5.4 [facility] Serum creatinine measurement (mass/volume)Ordered By: Jailene Pierre on 02-28-2025 Creatinine [Mass/Vol] 0.82 mg/dL 0.70-1.20 [facility] Serum globulin measurementOr dered By: Jailene Pierre on 02-28-2025 Globulin (S) [Mass/Vol] 2.0 g/dL Low 2.2-4.2 [facility] Serum glucose measurement (m ass/volume)Ordered By: Jailene Pierre on 02-28-2025 Glucose [Mass/Vol] 107 mg/dL High 70-99 [facility] Serum or plasma alanine maria otransferase (ALT) measurementOrdered By: Jailene Pierre on 02-28-2025 ALT [Catalytic activity/Vol] 14 U/L <35 [facility] Serum or plasma albumin tejas urement (mass/volume)Ordered By: Jailene Pierre on 02-28-2025 Albumin [Mass/Vol] 3.9 g/dL 3.4-4.8 [facility] Serum or plasma albumin/glob ulin mass ratioOrdered By: Jailene Pierre on 02-28-2025 Albumin/Globulin [Mass ratio] 1.9 {ratio} 0.9-2.4 [facility] Serum or plasma alkaline jacki sphatase measurementOrdered By: Jailene Pierre on 02-28-2025 ALP [Catalytic activity/Vol] 58 U/L 35-104 [facility] Serum or plasma calcium tejas urement (mass/volume)Ordered By: Jailene Pierre on 02-28-2025 Calcium [Mass/Vol] 8.6 mg/dL 7.6-11.0 [facility] Serum or plasma urea nitroge n measurement (mass/volume)Ordered By: Jailene Pierre on 02-28-2025 Urea nitrogen [Mass/Vol] 34 mg/dL High 4-19 [facility] Sodium levelOrdered By: Zelalem Pierre on 02-28-2025 Sodium [Moles/Vol] 136 mmol/L 133-145 [facility] Squamous epithelial cells de tection in urine sediment by light microscopyOrdered By: Jailene Pierre on 02-28-2025 Epithelial cells.squamous LM Ql (Urine sed) 0-5 SEEN /hpf 5-10 [facility] Total proteinOrdered By: Brianna Pierre on 02-28-2025 Protein [Mass/Vol] 5.9 g/dL 5.9-8.4 [facility] Troponin T.cardiac [Mass/vol ume] in Serum or Plasma by High sensitivity methodOrdered By: Zelalem Sifuentes on 02-28-2025 Troponin T.cardiac High sensitivity method [Mass/Vol] 11 ng/L <14 [facility] Type AND Screenon 02-28-2025 Ab SCREEN GEL Negative Normal [facility] Comment on above: Order Comment: CMV N EG? NNumber of units to transfuse: 1Reason for Ordering Blood: AcuteAre the blood/blood products to be transfused? YIs the patient having/had surgery? NHas pt arrived? YNWhen ReadyNYA Performed By: #### L 500.4050, L100.0100, L501.9520, L506.1001, L500.4100 #### [facility] [address] [place], [address] Urinalysis, Completeon 02-28 EPI,SQUAMOUS 0-5 SEEN Normal 5-10 [facility] Comment on above: Order Comment: A Performed By: #### L 100.0100, BTS #### [facility] [address] [place], [address] RBC 0-5 SEEN Normal 0-5 [facility] Comment on above: Order Comment: A Performed By: #### L 100.0100, BTS #### [facility] [address] [place], [address] BACTERIA 0 SEEN Normal None Seen [facility] Comment on above: Order Comment: A Performed By: #### L 100.0100, BTS #### [facility] [address] [place], [address] Mucus Ql (Urine sed) 0 SEEN Normal [facility] Comment on above: Order Comment: A Performed By: #### L 100.0100, BTS #### [facility] [address] [place], [address] WBC 0 SEEN Normal 0-5 [facility] Comment on above: Order Comment: A Performed By: #### L 100.0100, BTS #### [facility] [address] [place], [address] Urine clarityOrdered By: Brianna Pierre on 02-28-2025 Clarity (U) Clear Clear [facility] Urine color determinationOrd ered By: Jailene Pierre on 02-28-2025 Color (U) Straw Yellow [facility] Urine glucose detectionOrder ed By: Jailene Pierre on 02-28-2025 Glucose Ql (U) Normal mg/dl Normal [facility] Urine leukocyte esterase det ection by dipstickOrdered By: Jailene Pierre on 02-28-2025 Leukocyte esterase Test strip Ql (U) Negative Negative [facility] Urine pHOrdered By: Jailene kent on 02-28-2025 pH (U) 6.0 [pH] 5.0 - 8.0 [facility] Urine sediment bacteria coun t by microscopy (number/high power field)Ordered By: Jailene Pierre on 02-28-2025 Bacteria LM.HPF (Urine sed) [#/Area] 0 /[HPF] None Seen [facility] Urine specific gravity measu rementOrdered By: Jailene Pierre on 02-28-2025 Specific gravity (U) [Rel density] 1.005 1.002-1.030 [facility] Urine urobilinogen measureme ntOrdered By: Jailene Pierre on 02-28-2025 Urobilinogen Ql (U) Normal mg/dl Normal [facility] White blood cell (WBC) count Ordered By: Jailene Pierre on 02-28-2025 WBC (Bld) [#/Vol] 5.7 10*3/uL 4.4-11.0 [facility] White blood cell countOrdere d By: Jailene Pierre on 02-28-2025 White blood cell count 0 SEEN /hpf 0-5 [facility] Absolute lymphocyte countOrd ered By: Renato Bonilla on 02-27-2025 Lymphocytes Auto (Unsp spec) [#/Vol] 2.15 10*3/uL 0.83-4.51 [facility] Absolute neutrophil countOrd ered By: Renato Bonilla on 02-27-2025 Neutrophils (Bld) [#/Vol] 3.9 10*3/uL 2.0-7.7 [facility] Automated lymphocyte count a s percentage of total leukocytesOrdered By: Renato Bonilla on 02-27-2025 Lymphocytes/100 WBC Auto (Unsp spec) 30.5 % 19-41 [facility] Basophil percentageOrdered B y: Renato Bonilla on 02-27-2025 Basophils/100 WBC (Bld) 0.4 % 0-1 [facility] CBC W/Diff, Automatedon 02-01 Absolute Lymph 2.15 X10 3/uL Normal 0.83-4.51 [facility] Comment on above: Performed By: #### L 100.0100, BTS #### [facility] [address] [place], [address] Absolute Neut 3.9 X10 3/uL Normal 2.0-7.7 [facility] Comment on above: Performed By: #### L 100.0100, BTS #### [facility] [address] [place], [address] Basophils/100 WBC (Bld) 0.4 % Normal 0-1 [facility] Comment on above: Performed By: #### L 100.0100, BTS #### [facility] [address] [place], [address] Eosinophils/100 WBC (Bld) 4.7 % Normal 0-5 [facility] Comment on above: Performed By: #### L 100.0100, BTS #### [facility] [address] [place], [address] Erythrocyte distribution width (RBC) [Ratio] 13.8 % Normal 11.6-14.6 [facility] Comment on above: Performed By: #### L 100.0100, BTS #### [facility] [address] [place], [address] Hematocrit (Bld) [Volume fraction] 24.1 % Low 37-47 [facility] Comment on above: Performed By: #### L 100.0100, BTS #### [facility] [address] [place], [address] Hemoglobin (Bld) [Mass/Vol] 8.2 g/dL Low 12.0-15.0 [facility] Comment on above: Performed By: #### L 100.0100, BTS #### [facility] [address] [place], [address] IG% 1.000 High 0.0-0.9 [facility] Comment on above: Result Comment: IG% - Immature Granulocytes (promyelocytes, myelocytes and metamyelocytes) > 1% indicates that a LEFT SHIFT is Present. Performed By: #### L 100.0100, BTS #### [facility] [address] [place], [address] Lymphocytes/100 WBC (Bld) 30.5 % Normal 19-41 [facility] Comment on above: Performed By: #### L 100.0100, BTS #### [facility] [address] [place], [address] MCH (RBC) [Entitic mass] 32.8 pg High 27.0-32.0 [facility] Comment on above: Performed By: #### L 100.0100, BTS #### [facility] [address] [place], [address] MCHC (RBC) [Mass/Vol] 34.0 g/dL Normal 32-36 [facility] Comment on above: Performed By: #### L 100.0100, BTS #### [facility] [address] [place], [address] MCV (RBC) [Entitic vol] 96.4 fL Normal 81-99 [facility] Comment on above: Performed By: #### L 100.0100, BTS #### [facility] [address] [place], [address] Monocytes/100 WBC (Bld) 8.5 % Normal 0-10 [facility] Comment on above: Performed By: #### L 100.0100, BTS #### [facility] [address] [place], [address] Neutrophils/100 WBC (Bld) 54.9 % Normal 47-70 [facility] Comment on above: Performed By: #### L 100.0100, BTS #### [facility] [address] [place], [address] Nucleated RBC (Bld) [#/Vol] 0 10*3/uL Normal 0-5 [facility] Comment on above: Performed By: #### L 100.0100, BTS #### [facility] [address] [place], [address] Platelet mean volume (Bld) [Entitic vol] 8.9 fL Normal 6.2-12.0 [facility] Comment on above: Performed By: #### L 100.0100, BTS #### [facility] [address] [place], [address] Platelets (Bld) [#/Vol] 270 10*3/uL Normal 150-450 [facility] Comment on above: Performed By: #### L 100.0100, BTS #### [facility] [address] [place], [address] RBC (Bld) [#/Vol] 2.50 10*6/uL Low 4.2-5.4 [facility] Comment on above: Performed By: #### L 100.0100, BTS #### [facility] [address] [place], [address] RDW SD 47.8 fl High 35.1-43.9 [facility] Comment on above: Performed By: #### L 100.0100, BTS #### [facility] [address] [place], [address] WBC (Bld) [#/Vol] 7.1 10*3/uL Normal 4.4-11.0 [facility] Comment on above: Performed By: #### L 100.0100, BTS #### [facility] [address] [place], [address] Eosinophil percentageOrdered By: Renato Bonilla on 02-27-2025 Eosinophils/100 WBC (Bld) 4.7 % 0-5 [facility] Erythrocyte distribution wid th ratioOrdered By: Renato Bonilla on 02-27-2025 Erythrocyte distribution width (RBC) [Ratio] 13.8 % 11.6-14.6 [facility] Erythrocyte distribution wid th standard deviationOrdered By: Renato Bonilla on 02-27-2025 Erythrocyte distribution width (RBC) [Ratio] 47.8 fl High 35.1-43.9 [facility] Hematocrit Auto (Bld) [Volum e fraction]Ordered By: Renato Bonilla on 02-27-2025 Hematocrit (Bld) [Volume fraction] 24.1 % Low 37-47 [facility] Hemoglobin measurementOrdere d By: Renato Bonilla on 02-27-2025 Hemoglobin (Bld) [Mass/Vol] 8.2 g/dL Low 12.0-15.0 [facility] Immature granulocytes/100 WB C Auto (Bld)Ordered By: Renato Bonilla 02-27-2025 Immature granulocytes/100 WBC (Bld) 1.000 % High 0.0-0.9 [facility] Comment on above: IG% - Immature Granu locytes (promyelocytes, myelocytes and metamyelocytes) > 1% indicates that a LEFT SHIFT is Present. MCV (mean corpuscular volume ) determinationOrdered By: Renato Bonilla 02-27-2025 MCV (RBC) [Entitic vol] 96.4 fL 81-99 [facility] Mean corpuscular hemoglobin (MCH) determinationOrdered By: [facility]02-27-[facility] MCH (RBC) [Entitic mass] 32.8 pg High 27.0-32.0 [facility] Mean corpuscular hemoglobin concentration (MCHC) determinationOrdered By: [facility]02-27-2025 MCHC (RBC) [Mass/Vol] 34.0 g/dL 32-36 [facility] Mean platelet volume determi nationOrdered By: Renato Bonilla 02-27-2025 Platelet mean volume (Bld) [Entitic vol] 8.9 fL 6.2-12.0 [facility] Monocyte percentageOrdered B y: Renato Bonilla on 02-27-2025 Monocytes/100 WBC (Bld) 8.5 % 0-10 [facility] Neutrophil percentageOrdered By: Renato Chad 02-27-2025 Neutrophils/100 WBC (Bld) 54.9 % 47-70 [facility] Nucleated red blood cell per centageOrdered By: Renato Bonilla 02-27-2025 Nucleated RBC/100 WBC (Bld) [Ratio] 0 % 0-5 [facility] Platelet countOrdered By: Lonny Bonilla on 02-27-2025 Platelets (Bld) [#/Vol] 270 10*3/uL 150-450 [facility] RBC Auto (Bld) [#/Vol]Ordere d By: Renato Bonilla on 02-27-2025 RBC (Bld) [#/Vol] 2.50 10*6/uL Low 4.2-5.4 [facility] Type AND Screenon 02-27-2025 Ab SCREEN GEL Not performed Normal [facility] Comment on above: Order Comment: A Result Comment: DUPL ICATE Performed By: #### L 100.0100, BTS #### [facility] [address] [place], [address] A1 CELL Not performed Normal [facility] Comment on above: Order Comment: A Result Comment: DUPL ICATE Performed By: #### L 100.0100, BTS #### [facility] [address] [place], [address] ABO and Rh group Nom (Bld) Test Not Performed Normal [facility] Comment on above: Order Comment: A Result Comment: DUPL ICATE Performed By: #### L 100.0100, BTS #### [facility] [address] [place], [address] ANTI A Not performed Normal [facility] Comment on above: Order Comment: A Result Comment: DUPL ICATE Performed By: #### L 100.0100, BTS #### [facility] [address] [place], [address] ANTI B Not performed Normal [facility] Comment on above: Order Comment: A Result Comment: DUPL ICATE Performed By: #### L 100.0100, BTS #### [facility] [address] [place], [address] ANTI D Not performed Normal [facility] Comment on above: Order Comment: A Result Comment: DUPL ICATE Performed By: #### L 100.0100, BTS #### [facility] [address] [place], [address] B CELLS Not performed Normal [facility] Comment on above: Order Comment: A Result Comment: DUPL ICATE Performed By: #### L 100.0100, BTS #### [facility] [address] [place], [address] D CONTROL Not performed Normal Neg [facility] Comment on above: Order Comment: A Result Comment: DUPL ICATE Performed By: #### L 100.0100, BTS #### [facility] [address] [place], [address] White blood cell (WBC) count Ordered By: Renato Bonilla on 02-27-2025 WBC (Bld) [#/Vol] 7.1 10*3/uL 4.4-11.0 [facility] CBC + DIFFon 02-26-2025 Baso # 0.01 x10EE3/UL Normal 0.00 - 0.10 [facility] Comment on above: Performed By: #### 2 73764 #### [facility],[address] [place] [address] Basophils/100 WBC (Bld) 0.2 % Normal 0.0 - 2.0 [facility] Comment on above: Performed By: #### 2 00339 #### [facility],[address] [place] [address] CBC + DIFF Normal [facility] Comment on above: Result Comment: CBC- COMPLETE BLOOD COUNT Performed By: #### 2 96601 #### [facility],[address] [place] [address] EO # 0.44 x10EE3/UL Normal 0.00 - 0.50 [facility] Comment on above: Performed By: #### 2 89442 #### [facility],[address] [place] [address] Eosinophils/100 WBC (Bld) 8.5 % High 0.0 - 7.0 [facility] Comment on above: Performed By: #### 2 10022 #### [facility],[address] [place] [address] Erythrocyte distribution width (RBC) [Ratio] 13.7 % Normal 12.0 - 15.6 [facility] Comment on above: Performed By: #### 2 70534 #### [facility],[address] [place] [address] Hematocrit (Bld) [Volume fraction] 26.2 % Low 34.0 - 46.0 [facility] Comment on above: Performed By: #### 2 30372 #### [facility],[address] [place] [address] Hemoglobin (Bld) [Mass/Vol] 9.1 g/dL Low 12.0 - 16.0 [facility] Comment on above: Performed By: #### 2 38095 #### [facility],[address] [place] [address] Lymph # 2.42 x10EE3/UL Normal 0.80 - 2.80 [facility] Comment on above: Performed By: #### 2 06223 #### [facility],[address] [place] [address] Lymphocytes/100 WBC (Bld) 46.3 % High 20.0 - 45.0 [facility] Comment on above: Performed By: #### 2 18494 #### [facility],[address] [place], [place] [id number] MANUAL DIFF N/A Normal [facility] Comment on above: Performed By: #### 2 95711 #### [facility],[address] [place], [place] [id number] MCH (RBC) [Entitic mass] 33 pg Normal 27 - 33 [facility] Comment on above: Performed By: #### 2 64001 #### [facility],[address] [place] [address] MCHC 35 X10 3 Normal 32 - 36 [facility] Comment on above: Performed By: #### 2 85894 #### [facility],[address] [place] [address] MCV (RBC) [Entitic vol] 94 fL Normal 80 - 99 [facility] Comment on above: Performed By: #### 2 12675 #### [facility],[address] [place] [address] [place]aton # 0.53 x10EE3/UL Normal 0.20 - 1.00 [facility] Comment on above: Performed By: #### 2 87592 #### [facility],[address] [place] [address] MONOS % 10.0 % Normal 0.0 - 10.0 [facility] Comment on above: Performed By: #### 2 36763 #### [facility],[address] [place] [address] Morphology Eliel (Bld) [Interp] N/A Normal [facility] Comment on above: Performed By: #### 2 71551 #### [facility],[address] [place] [address] Neut # 1.83 x10EE3/UL Normal 1.50 - 7.10 [facility] Comment on above: Performed By: #### 2 42963 #### [place] [address] Neutrophils/100 WBC (Bld) 35.0 % Low 46.0 - 76.0 [facility] Comment on above: Performed By: #### 2 15798 #### [place] [address] PLATELET 227 x10EE3/UL Normal 150 - 450 [facility] Comment on above: Performed By: #### 2 29615 #### [facility],[address],[place] [address] Platelet mean volume (Bld) [Entitic vol] 6.8 fL Normal 6.6 - 10.5 [facility] Comment on above: Result Comment: AUTO MATED DIFFERENTIAL Performed By: #### 2 20564 #### [facility],[address] [place] [address] RBC 2.78 x 10EE6/UL Low 4.10 - 5.30 [facility] Comment on above: Performed By: #### 2 27097 #### [facility],[address] [place] [address] WBC 5.2 x 10EE3/UL Normal 4.5 - 10.8 [facility] Comment on above: Performed By: #### 2 82183 #### [facility],[address] [place] [address] CMP with eGFRon 02-26-2025 AGE 64 years Normal [facility] Comment on above: Performed By: #### 2 21813 #### [facility],[address] [place] [address] Albumin [Mass/Vol] 3.0 g/dL Low 3.4 - 5.0 [facility] Comment on above: Performed By: #### 2 33575 #### [facility],[address] [place] [address] Albumin/Globulin [Mass ratio] 1.2 {ratio} Normal 0.9 - 1.6 [facility] Comment on above: Performed By: #### 2 35189 #### [facility],[address] [place] [address] ALK PHOS 51 U/L Normal 46 - 116 [facility] Comment on above: Performed By: #### 2 14572 #### [facility],[address] [place] [address] ALT [Catalytic activity/Vol] 17 U/L Normal 16 - 63 [facility] Comment on above: Performed By: #### 2 74125 #### [facility],[address] [place] [address] Anion gap [Moles/Vol] 10 mmol/L Normal 10 - 20 [facility] Comment on above: Performed By: #### 2 25703 #### [facility],[address] [place] [address]50 AST [Catalytic activity/Vol] 14 U/L Normal 13 - 39 [facility] Comment on above: Performed By: #### 2 16200 #### [facility],[address] [place] [address]958 B/C RATIO 32 ratio High 0 - 30 [facility] Comment on above: Performed By: #### 2 82970 #### [facility],[address] [place] [address] Bilirubin [Mass/Vol] 0.3 mg/dL Normal 0.2 - 1.0 [facility] Comment on above: Performed By: #### 2 30694 #### [facility],[address] [place] [address] Calcium [Mass/Vol] 8.2 mg/dL Low 8.5 - 10.1 [facility] Comment on above: Performed By: #### 2 28212 #### [facility],[address] [place] [address] Chloride [Moles/Vol] 108 mmol/L High 98 - 107 [facility] Comment on above: Performed By: #### 2 05489 #### [facility],[address] [place] [address] 38719 CMP with eGFR Normal [facility] Comment on above: Result Comment: COMP REHENSIVE METABOLIC PANEL Performed By: #### 2 26370 #### [facility],[address] [place] [address] 29898 CO2 [Moles/Vol] 29.5 mmol/L Normal 21.0 - 32.0 [facility] Comment on above: Performed By: #### 2 66540 #### [facility],[address] [place] [address] Creatinine [Mass/Vol] 0.78 mg/dL Normal 0.55 - 1.02 [facility] Comment on above: Performed By: #### 2 66739 #### [facility],[address] [place] [address] GFR/1.73 sq M.predicted among non-blacks MDRD (S/P/Bld) [Vol rate/Area] mL/min/{1.73_m2} Normal 60 - 999 [facility] Comment on above: Performed By: #### 2 24893 #### [facility],[address] [place], [place] [address] Result Comment: ACCO RDING TO THE NATIONAL KIDNEY DISEASE EDUCATION PROGRAM(NKDE), A NORMAL eGFR IS A VALUE GREATER THAN OR EQUAL TO 60 ML/MIN/1.73 SQ METERS. CHRONIC KIDNEY DISEASE: <60mL/MIN/1.73 SQ METERS KIDNEY FAILURE: <15mL/MIN/1.73 SQ METERS THIS TEST SHOULD ONLY BE USED FOR PATIENTS 18 YEARS OF AGE AND OLDER. Globulin (S) [Mass/Vol] 2.5 g/dL Normal 1.5 - 3.8 [facility] Comment on above: Performed By: #### 2 38494 #### [facility],[address] [place] [address] Glucose [Mass/Vol] 99 mg/dL Normal 74 - 106 [facility] Comment on above: Performed By: #### 2 57413 #### [facility],[address] [place] [address] Potassium [Moles/Vol] 4.3 mmol/L Normal 3.5 - 5.1 [facility] Comment on above: Performed By: #### 2 50350 #### [facility],[address] [place] [address]673 Protein [Mass/Vol] 5.5 g/dL Low 6.4 - 8.2 [facility] Comment on above: Performed By: #### 2 67243 #### [facility],[address] [place] [address] Sodium [Moles/Vol] 143 mmol/L Normal 136 - 145 [facility] Comment on above: Performed By: #### 2 07339 #### [facility],[address] [place] [address] Urea nitrogen [Mass/Vol] 25 mg/dL High 7 - 18 [facility] Comment on above: Performed By: #### 2 06150 #### [facility],[address] [place] [address] ED MED ADMINISTRATION DETAIL on 02-26-2025 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 Allergies verified. Via IV pump. IV patency 12:03 02/25/2025 (NOW x1) established. IV site checked: no pain, redness, or swelling. IV Dariela Reid R.N. flushed thoroughly pre-medication administration. Information Scanned reviewed with patient and spouse including reason for taking this medication. - 12:04 Dariela Reid R.N. 13:55 02/25 Medication Continued: at the rate of 100 mL/hr. 900 mL remaining in bag #1. IV patency established. IV site checked: no pain, redness, or swelling. - 14:16 Dariela Reid, R.N. Pantoprazole 13:10 02/25 Pantoprazole (Protonix) IVP 40 mg given via Site# 1. Given (Protonix) IVP 40 Allergies verified and confirmed 5 rights. IV patency established. IV 13:10 02/25/2025 mg (NOW x1) site checked: no pain, redness, or swelling. IV flushed thoroughly Dariela Reid R.N. pre-medication administration. IVP given by nurse. Information Scanned reviewed with patient and spouse including reason for taking this medication. - 13:10 Dariela Reid R.N. 1 of 1 Normal [facility] ED NURSES CLINICAL NOTEon ED NURSES CLINICAL NOTE Nurse Narrative - AMIE RYAN, : 1960, , Nurse Clinical Narrative [address] [address] [id number] 02/25/2025 09:48:00 Patient: AMIE RYAN Sex: Female : 1960 Age: 64y Disposition: Observation to Med/Surg Disposition Decision Time: 12:57 02/25/2025 Departure Time: 13:50 02/25/2025 TRIAGE Arrived by EMS. Historian: (patient). Accompanied by family. Triage time: 09:52 02/25/2025. Acuity: LEVEL 3. Chief Complaint: DIZZINESS and (low BP). This started today. 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 IV fluid given (2000mL bolus). -- 10:03 02/25/25 EDT Beth Senior R.N. 09:52 02/25/25. Site #1 started prior to arrival by EMS in the right antecubital space with a 20g needle with good blood return. -- 09:56 02/25/25 SANTANAT Beth Senior R.N. 09:57 02/25/25. BP: 139/72 MAP: 94. HR: 64. RR: 14. O2 saturation: 98% Temperature: 97.7 F. Pain level now 0/10. -- 09:58 02/25/25 EDT Beth Senior R.N. 10:03 02/25/25. SEPSIS SCREEN: NEGATIVE. SIRS criteria negative. No possible sources of infection. -- 10:03 02/25/25 TANA Senior R.N. Measurements: 10:02/25/25 Wt: 57.2 kg, Ht/Gurdeep: 63.0 in, BMI: 22.32 -- 10:02/25/25 TANA Senior R.N. 1 of 5 Nurse Narrative - RYANNINOAMIE, : 1960, , Medications: gemteza 75 m tablet every evening. -- 10:12 02/25/25 TANA Senior R.N. iron 325 mg (65 mg iron) tablet: 1 tablet every other day. -- 10:02/25/25 TANA Senior R.N. Vitamin D3 25 mcg (1,000 unit) capsule: 1 capsule every evening. -- 10:12 02/25/25 TANA Senior R.N. Calcium-600 600 mg (as calcium carbonate 1,500 mg) tablet: 1 tablet every evening. -- 10:12 02/25/25 TANA Senior R.N. magnesium 100 mg (as glycinate) capsule: 500 mg every evening. -- 10:12 02/25/25 TANA Senior R.N. aspirin 81 mg tablet: 1 tablet every evening. -- 10:12 02/25/25 TANA Senior R.N. losartan 50 mg tablet: 1 tablet once a day. -- 10:12 02/25/25 TANA Senior R.N. Gemtesa 75 mg tablet: 1 tablet every evening. -- 10:12 02/25/25 TANA Senior R.N. cyclobenzaprine 10 mg tablet: 1 tablet every evening as needed. -- 10:12 02/25/25 TANA Senior R.N. cephalexin 250 mg capsule: Stopped 02/25/2025. -- 10:12 02/25/25 TANA Senior R.N. atorvastatin 40 mg tablet: 1 tablet every evening. -- 10:12 02/25/25 TANA Senior R.N. amoxicillin 875 mg-potassium clavulanate 125 mg tablet: 1 tablet twice a day. -- 10:12 02/25/25 TANA Senior R.N. amlodipine 5 mg tablet: 1 tablet every evening. -- 10:12 02/25/25 TANA Senior R.N. 09:52 02/25/25. Preferred Pharmacy: ([facility], [place]). -- 10:03 02/25/25 TANA Senior R.N. Allergies: no known drug allergies -- 09:59 02/25/25 TANA Senior R.N. Home Medications/Allergy Information Source: patient -- 09:59 02/25/25 TANA Senior R.N. Problems: Vasovagal Syncope -- 09:59 02/25/25 TANA Senior R.N. Aortic Aneurysm -- 09:59 02/25/25 TANA Senior R.N. Heart Disease -- 10:00 02/25/25 TANA Senior R.N. Hypertension -- 10:00 02/25/25 TANA Senior R.N. Surgeries: 2 of 5 Nurse Narrative - AMIE RYAN, : 1960, , Catheterization of left heart -- 10:00 02/25/25 TANA Senior R.N. Hysterectomy -- 10:00 02/25/25 TANA Senior R.N. History 09:52 02/25/25. PAST MEDICAL HX: Immunizations: up-to-date. Denies current . SOCIAL HX: Never smoker. No alcohol use or drug use. The patient has not traveled outside the [place] Infectious disease exposure: No infectious disease exposure. ABUSE ASSESSMENT: The patient answered yes to the question(s) Do you feel safe in your home? and no to the question(s) Are you afraid to go home?. Abuse denied. SELF HARM ASSESSMENT: Self harm assessment was performed. The patient answered no to the question(s) Have you recently felt down, depressed, or hopeless? and Do you have thoughts of harming or killing yourself?. FALL RISK ASSESSMENT: Fall risk assessment completed. No risk factors identified. -- 10:03 02/25/25 EDT Beth Senior R.N. Interventions 09:52 02/25/25. Advanced care plan discussed with patient (Full Code). -- 10:03 02/25/25 EDT Beth Senior R.N. PHYSICAL ASSESSMENT 11:20 02/25/25. GENERAL / NEURO / PSYCH: Oriented X 4. Alert. Speech within normal limits. ( Pt had sudden onset dizziness this morning, and she checked her BP which was low so they called the squad.). HEENT: No facial asymmetry noted. Pupils equal, round and reactive to light. ( Pt is being treated for a right sided earache and she is on ATBs.). RESPIRATORY: Respirations not labored. CVS: Cardiac rhythm: sinus bradycardia. Capillary refill less than 2 seco (more content not included)... Normal [facility] ED ORDER SHEET (CPOE ONLY)on 02-26-2025 ED ORDER SHEET (CPOE ONLY) Order Sheet - AMIE RYAN, : 1960, , Order Sheet [address] [address] [id number] 02/25/2025 Patient: AMIE RYAN Sex: Female : 1960 Age: 64y MEASUREMENTS: Wt: 57.2 kg, Ht/Gurdeep: 63.0 in, BMI: 22.32 ALLERGIES: No known drug allergies MEDICATION/IV/DRIP/FLUID ORDERS Order Description Priority Entered Acknowledged Completed IV NS 0.9 %1000 mL at 100 10:21 02/25/2025 10:25 12:04 mL/hr (NOW x1) Estuardo Parkinson, 02/25/2025 02/25/2025 D.ODariela Dahl, Saw.N. R.N. Pantoprazole (Protonix) IVP40 12:44 02/25/2025 13:03 13:10 mg (NOW x1) Estuardo Parkinson, 02/25/2025 02/25/2025 D.ODariela Dahl, Saw.N. R.N. Reason for ordering with alerts: Benefits outweigh risks --12:44 02/25/2025 Estuardo Parkinson D.O. LAB ORDERS Order Description Priority Entered Acknowledged Collected Completed CBC w Diff Stat Stat 10:21 02/25/2025 10:24 02/25/2025 10:24 02/25/2025 Dariela Agee Natalie Yoder, D.O. R.N. R.N. 1 of 4 Order Sheet - AMIE RYAN, : 1960, , BNP Stat Stat 10:21 02/25/2025 10:24 02/25/2025 10:24 02/25/2025 Dariela Agee Natalie Yoder, D.O. R.N. R.N. CMP Stat Stat 10:21 02/25/2025 10:24 02/25/2025 10:24 02/25/2025 Dariela Agee Natalie Yoder, D.O. R.N. R.NMicky D-Dimer Stat Stat 10:21 02/25/2025 10:24 02/25/2025 10:24 02/25/2025 Dariela Agee Natalie Yoder, D.O. R.N. R.NMicky EKG - ED Stat Stat 10:21 02/25/2025 10:24 02/25/2025 10:24 02/25/2025 Dariela Agee Natalie Yoder, D.O. R.N. R.N. Troponin-I Protocol Stat 10:21 02/25/2025 10:24 02/25/2025 10:24 02/25/2025 (STAT 1hr) (Sched: q1h Dariela Agee Natalie Yoder, X2); Stat 1 of 2 D.O. R.N. R.N. Troponin-I Protocol Stat 10:21 02/25/2025 11:40 02/25/2025 12:04 02/25/2025 (STAT 1hr) (Sched: q1h Dariela Agee Natalie Yoder, X2); Stat 2 of 2 D.O. R.N. R.N. Blood Culture Stat 10:22 02/25/2025 Cancelled: Other [Diane] # 1 Stat Estuardo Parkinson, 10:47 EDT Estuardo Parkinson D.O. D.O. Blood Culture Stat 10:22 02/25/2025 Cancelled: Other [Diane] # 2 Stat Estuardo Parkinson, 10:47 EDT Estuardo Parkinson D.O. D.O. 2 of 4 Order Sheet - AMIE RYAN, : 1960, , Lactate, Serum Stat Stat 10:22 02/25/2025 Cancelled: Other Estuardo Parkinson, 10:47 EDT Estuardo Parkinson D.O. D.O. Occult Blood, Stool Stat 10:46 02/25/2025 11:18 02/25/2025 11:40 02/25/2025 (Non-Cancer Screening) Dariela Agee Natalie Yoder, Stat Raina Spring.N. R.NMicky DIAGNOSTIC STUDY ORDERS Order Description Priority Entered Acknowledged Completed CT Chest PE Study Stat Stat 10:21 02/25/2025 10:25 11:18 Estuardo Parkinson, 02/25/2025 02/25/2025 Dariela Noriega R.N. R.N. Reason for Study: Chest Pain CT ABD/PEL w Cont Stat Stat 10:21 02/25/2025 10:25 11:18 Estuardo Parkinson, 02/25/2025 02/25/2025 Dariela Noriega R.N. R.N. Reason for Study: Abdominal Pain STAFF ORDERS Order Description Priority Entered Acknowledged Collected Completed Obtain Old EKG 10:21 02/25/2025 11:01 02/25/2025 11:18 02/25/2025 Dariela Agee Natalie Yoder, D.O. R.N. R.N. Collarette Separator 10:21 02/25/2025 10:25 02/25/2025 10:25 02/25/2025 Dariela Agee Natalie Yoder, D.O. R.NMicky R.N. 3 of 4 Order Sheet - AMIE RYAN, : 1960, , Vital signs every 15 10:21 02/25/2025 10:25 02/25/2025 10:25 02/25/2025 minutes Dariela Agee Natalie Yoder, D.O. R.N. RKatrin. IV Saline Lock 10:21 02/25/2025 10:25 02/25/2025 10:25 02/25/2025 Dariela Agee Natalie Yoder, D.O. R.N. RMickyN. [Electronically signed by Estuardo Parkinson D.O. (02/25/2025 14:01 EDT)] 4 of 4 [facility] ED PHYSICIAN CLINICAL REPORT on 02-26-2025 ED PHYSICIAN CLINICAL REPORT Narrative - AMIE RYAN, : 1960, , Physician Clinical Narrative [address] [address] [id number] 02/25/2025 09:48:00 Patient: AMIE RYAN Sex: Female : 1960 Age: 64y Disposition: Observation to Med/Surg Disposition Decision Time: 12:57 02/25/2025 Measurements Wt: 57.2 kg, Ht/Gurdeep: 63.0 in, BMI: 22.32 Initial Vital Sign Measured Time BP MAP HR RR O2Sat ETCO2 Temp Pain GCS RTS 09:57 02/25/2025 139/72 94 64 14 98% 97.7 F 0 Time Seen: 09:52 02/25/2025. Arrived- By ambulance. Historian- patient. Independent historian- EMS personnel and family. HISTORY OF PRESENT ILLNESS Chief Complaint: SYNCOPE and NEAR-SYNCOPE. This occurred today. The patient has recovered. ( patient has been having episodes where she feels lightheaded. . She has been active person and states Monday she got up and passed out briefly and yesterday and today she just felt very lightheaded like she was going to pass out and felt very weak she also had episodes where she felt short of breath. 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 where she had a CAT scan couple of months ago which showed no change in the aneurysm. She does have history of coronary artery disease which she said instead she has had hypertension surgeries at tonsillectomy hysterectomy stent she is a reformed smoker. She has not drink alcohol she is here with her . Very concerned about her. And presents to the emergency department. She also takes blood pressure medication which did been reducing her dose she takes losartan 50 mg q.day and amlodipine 5 mg q.day with a have been decreasing her dose because of her blood pressure.). The patient had preceding symptoms of light-headedness. At time of event, the patient had just stood up. The patient felt faint and collapsed. The patient lost consciousness (times 1). Experienced repeated episodes. Narrative - AMIE RYAN, : 1960, , REVIEW OF SYSTEMS CVS: No chest pain. GI: No abdominal pain. CONSTITUTIONAL: No fever. THROAT: No sore throat. : No difficulty with urination. SKIN: No skin rash. RESPIRATORY: No cough. NEUROLOGICAL: No headache. PAST HISTORY See nurses notes. Aortic Aneurysm Heart Disease Hypertension Vasovagal Syncope Surgeries: Catheterization of left heart Hysterectomy Medications: amlodipine 5 mg tablet: 1 tablet every evening. amoxicillin 875 mg-potassium clavulanate 125 mg tablet: 1 tablet twice a day. aspirin 81 mg tablet: 1 tablet every evening. atorvastatin 40 mg tablet: 1 tablet every evening. Calcium-600 600 mg (as calcium carbonate 1,500 mg) tablet: 1 tablet every evening. cephalexin 250 mg capsule: Stopped 02/25/2025. cyclobenzaprine 10 mg tablet: 1 tablet every evening as needed. Gemtesa 75 mg tablet: 1 tablet every evening. gemteza 75 m tablet every evening. iron 325 mg (65 mg iron) tablet: 1 tablet every other day. losartan 50 mg tablet: 1 tablet once a day. magnesium 100 mg (as glycinate) capsule: 500 mg every evening. Vitamin D3 25 mcg (1,000 unit) capsule: 1 capsule every evening. Allergies: no known drug allergies Home Medications/Allergy Information Source: patient - Beth SeniorJohan, 02/25/2025 09:59 EDT 2 of 12 AMIE Almendarez, : 1960, , SOCIAL HISTORY Former smoker. No alcohol use or drug use. ADDITIONAL NOTES The nursing notes have been reviewed. PHYSICAL EXAM Appearance: Alert. No acute distress. ENT: Normal ENT inspection. TM's normal. (Pale conjunctiva). Neck: Normal inspection. Neck supple. CVS: Normal heart rate and rhythm. Heart sounds normal. Respiratory: No respiratory distress. Painless inspiration. Abdomen: Soft and nontender. Back: Normal inspection. Skin: Skin warm and dry. Normal skin color. Normal skin turgor. Extremities: Extremities exhibit normal ROM. No lower extremity edema. Neuro: Alert. Oriented X 3. No motor deficit. No sensory deficit. LABS, X-RAYS, AND EKG 12-LEAD EKG: EKG time: 09:58 02/25/2025. No acute process. Rate: 56. Bradycardia. Normal axis. The study has been interpreted contemporaneously by me. Interpretation time: 09:59 02/25/2025. Laboratory Tests: CBC + DIFF Final TAHIRA: 02/25/2025 10:05:00 EDT MsgRcvd: 02/25/2025 10:31 EDT Lab Test Result Reference Status Received 02/25/2025 10:31 CBC + DIFF Final EDT CBC-COMPLETE BLOOD COUNT 3 of 12 AMIE Almendarez, : 1960, , 02/25/2025 10:31 WBC 5.7 x 10/UL 4.5 - 10.8 Final EDT 2.30 x 10/UL 02/25/2025 10:31 RBC 4.10 - 5.30 Final Below low normal EDT 7.7 g/dl 02/25/2025 10:31 HEMOGLOBIN 12.0 - 16.0 Final Below low jalen (more content not included)... Normal [facility] ED SUPER BILLon 02-26-2025 ED SUPER BILL [facility] - AMIE RYAN, : 1960, , [address] [address] [id number] 02/25/2025 Patient: AMIE RYAN Sex: Female : 1960 Age: 64y Facility Professional Category Item Description Code Code Quantity Fee Total Nurse/E/M EMERGENCY 151523 1 $0.00 $0.00 DEPT VISIT HIGH SEVERITYFUNCJ (68330-79) Nurse/IV/IM/Infusions Hydration 482823 2 $0.00 $0.00 additional hour (13356) Nurse/IV/IM/Infusions IVP initial (18395) 699085 1 $0.00 $0.00 Grand $0.00 Total Providers Estuardo Parkinson D.O. Chief Complaint SYNCOPE and NEAR-SYNCOPE. Principal Diagnosis 1 of 2 [facility] - AMIE RYAN, : 1960, , Near syncope Syncope. GI bleed. GI bleed with hypotension. ICD-10 Codes R55: Syncope and collapse R55: Syncope and collapse K92.2: Gastrointestinal hemorrhage, unspecified K92.2: Gastrointestinal hemorrhage, unspecified 2 of 2 [facility] ED VISIT SUMMARYon ED VISIT SUMMARY Visit Overview - [facility] AMIE MARK, : 1960, , Visit [address] [address] [id number] 02/25/2025 Patient: AMIE RYAN Sex: Female : 1960 Age: 64y 02/26/2025 03:24 PM EDT ED Arrival:09:48 02/25/2025 EDT Status:not Recent Travel:no Language:eng Adv Directive: Isolation Status: Ethnicity:N Fall Risk:no risk Infectious Disease Exposure:no Measurements:5'3 / 160.0 Self-Harm Status:risk Sepsis Screen:negative cm 126.0 lb / 57.2 kg Chief Complaint:DIZZINESS, (2000mL bolus), and (low BP ) ALLERGIES No Known Drug Allergies HOME MEDICATIONS amlodipine 5 mg tablet: 1 tablet every evening. amoxicillin 875 mg-potassium clavulanate 125 mg tablet: 1 tablet twice a day. aspirin 81 mg tablet: 1 tablet every evening. atorvastatin 40 mg tablet: 1 tablet every evening. Calcium-600 600 mg (as calcium carbonate 1,500 mg) tablet: 1 tablet every evening. cephalexin 250 mg capsule: Stopped 02/25/2025. cyclobenzaprine 10 mg tablet: 1 tablet every evening as needed. 1 of 4 Visit Joyce - AMIE RYAN, : 1960, , Gemtesa 75 mg tablet: 1 tablet every evening. gemteza 75 m tablet every evening. iron 325 mg (65 mg iron) tablet: 1 tablet every other day. losartan 50 mg tablet: 1 tablet once a day. magnesium 100 mg (as glycinate) capsule: 500 mg every evening. Vitamin D3 25 mcg (1,000 unit) capsule: 1 capsule every evening. PAST MEDICAL HISTORY / PROBLEMS Aortic Aneurysm Heart Disease Hypertension Immunizations: up-to-date See nurses notes Vasovagal Syncope PAST SURGICAL HISTORY Catheterization of left heart Hysterectomy SOCIAL HISTORY Smoking status: No Alcohol use: No Drug use: No ED COURSE MEDICATIONS GIVEN IN EMERGENCY DEPARTMENT 12:03 02/25/25 IV NS 0.9 % 1000 mL 100 mL/hr 13:10 02/25/25 Pantoprazole (Protonix) IVP 40 mg IV SITE INFORMATION 09:52 02/25/25 Site #1 right AC, 20g. INTAKE OUTPUT 2 of 4 Visit Overview - NINO RYANNDY, : 1960, , REASSESMENT (most recent) 11:20 02/25/25. GENERAL / NEURO / PSYCH: Oriented X 4. Alert. Speech within normal limits. ( Pt had sudden onset dizziness this morning, and she checked her BP which was low so they called the squad.). HEENT: No facial asymmetry noted. Pupils equal, round and reactive to light. ( Pt is being treated for a right sided earache and she is on ATBs.). RESPIRATORY: Respirations not labored. CVS: Cardiac rhythm: sinus bradycardia. Capillary refill less than 2 seconds. SKIN: Skin is warm and dry. Skin is pale. VITAL SIGNS First Vitals Last Vitals Temp 09:57 02/25/25 97.7 F Temp 13:49 02/25/25 BP 09:57 02/25/25 139/72 BP 13:49 02/25/25 HR 09:57 02/25/25 64 HR 13:49 02/25/25 79 RR 09:57 02/25/25 14 RR 13:49 02/25/25 18 O2 Sat 09:57 02/25/25 98% O2 Sat 13:49 02/25/25 96% Pain 09:57 02/25/25 0 Pain 13:49 02/25/25 ETCO2 09:57 02/25/25 ETCO2 13:49 02/25/25 GCS 09:57 02/25/25 GCS 13:49 02/25/25 RTS 09:57 02/25/25 RTS 13:49 02/25/25 PROCEDURES NURSING INTERVENTIONS LABS / STUDIES LABS / STUDIES ORDERED BNP CBC w Diff CMP CT ABD/PEL w Cont CT Chest PE Study D-Dimer EKG - ED Occult Blood, Stool (Non-Cancer Screening) Troponin-I Protocol (STAT 1hr) Troponin-I Protocol (STAT 1hr) 3 of 4 Visit Overview - AMIE RYAN, : 1960, , CLINICAL IMPRESSION GI BLEED GI BLEED WITH HYPOTENSION NEAR SYNCOPE SYNCOPE 4 of 4 Normal [facility] ED VITALS FLOW SHEETon 02-26 ED VITALS FLOW SHEET Vitals - PANKAJ RYAN, : 1960, , Vital Sign Flow Sheet [address] [place] [address] [id number] 02/25/2025 Patient: AMIE RYAN Sex: Female : 1960 Age: 64y Measurements Wt: 57.2 kg, Ht/Gurdeep: 63.0 in, BMI: 22.32 Measured Time BP MAP HR RR O2Sat ETCO2 Temp Pain GCS RTS 13:49 02/25/2025 79 18 96% 13:44 02/25/2025 73 17 99% 13:38 02/25/2025 116/64 73 68 13:24 02/25/2025 76 16 100% 13:23 02/25/2025 111/72 81 76 13:19 02/25/2025 71 13 100% 13:14 02/25/2025 75 22 96% 13:09 02/25/2025 73 22 99% 13:08 02/25/2025 109/59 68 72 13:04 02/25/2025 70 20 98% 12:59 02/25/2025 72 15 92% 12:54 02/25/2025 69 23 98% 12:53 02/25/2025 113/65 76 70 12:49 02/25/2025 74 14 96% 12:39 02/25/2025 19 1 of 3 Vitals - NINO RYANNDY, : 1960, , Measured Time BP MAP HR RR O2Sat ETCO2 Temp Pain GCS RTS 12:38 02/25/2025 104/66 75 71 12:34 02/25/2025 20 12:29 02/25/2025 23 12:24 02/25/2025 20 12:23 02/25/2025 111/68 76 66 12:19 02/25/2025 67 18 100% 12:14 02/25/2025 71 22 100% 12:08 02/25/2025 121/67 77 69 12:04 02/25/2025 15 11:59 02/25/2025 17 11:54 02/25/2025 20 11:53 02/25/2025 112/63 80 68 11:49 02/25/2025 22 11:44 02/25/2025 20 11:39 02/25/2025 19 11:38 02/25/2025 106/66 77 68 11:34 02/25/2025 22 11:29 02/25/2025 17 11:24 02/25/2025 22 11:23 02/25/2025 122/61 72 64 11:19 02/25/2025 15 11:16 02/25/2025 16 11:13 02/25/2025 102/59 73 62 11:06 02/25/2025 63 90% 10:56 02/25/2025 17 2 of 3 Vitals - AMIE RYAN, : 1960, , Measured Time BP MAP HR RR O2Sat ETCO2 Temp Pain GCS RTS 10:51 02/25/2025 67 14 97% 10:48 02/25/2025 67 19 96% 10:43 02/25/2025 69 13 96% 10:38 02/25/2025 123/73 82 71 10:38 02/25/2025 73 14 97% 10:33 02/25/2025 68 22 98% 10:28 02/25/2025 66 12 100% 10:24 02/25/2025 116/72 80 73 10:18 02/25/2025 66 22 95% 10:13 02/25/2025 69 16 97% 10:08 02/25/2025 107/71 80 68 10:08 02/25/2025 67 11 98% 10:03 02/25/2025 66 11 92% 09:57 02/25/2025 139/72 94 64 14 98% 97.7 F 0 3 of 3 Normal [facility] BB CROSSMATCH 1ST UNITon BB CROSSMATCH 1ST UNIT Normal [facility] Comment on above: Result Comment: [id number] REQUEST FOR BLOOD OR BLOOD COMPONENT UNIT #_1 02/25/[id number]. Performed By: #### 2 [id number] #### [facility],[address] [place] [address] Compatibility COMPATIBLE [facility] Comment on above: Result Comment: { Pt 's BB ID # [id number] Transfusion comments I have confirmed the above required items at the time of unit issue: Issuing Tech ........................ Date/Time .................. ===== PT ID VERIFIED AT BEDSIDE PRIOR TO BLOOD ADMINISTRATION PT ID VERIFIED AND DOCUMENTED BY TWO NURSES PT Name same on unit tag,BB ID Bracelet, and blood administration form Verify PT name by asking to state name(if poss.) Pt's MR Number on unit tag is the same as BB ID Bracelet and admin form Verify Pt's ABO Group/Rh from admin form, and unit tag Verify unit number from unit and blood administration form Informed consent obtained? I have checked the above listed items and there were no discrepancies #1 RN signature .................... Date/Time .................. #2 RN signature .................... Date/Time .................. ===== RECORD OF PATIENT'S RESPONSE Date/Time Prior to transfusion ......... Start of transfusion ......... 15 minute check ......... Blood complete/DC ......... SITE: Central Vein Peripheral Vein Central Artery Peripheral Artery AMOUNT GIVEN (1/4, 1/2, 3/4 or full unit) WAS THERE A REACTION TO THE TRANSFUSION? Yes... No... If so, notify the physician and the lab immediately, and initiate a Blood Transfusion Reaction form. COMPLETE FORMS ENTIRELY. KEEP CARDBOARD COPY ATTACHED TO UNIT. PLACE WHITE COPY ON CHART. RETURN YELLOW COPY TO LAB LINDA UPON COMPLETION OF TRANSFUSION. Performed By: #### 2 [id number] #### [facility],[address] [place] [address] Component LRPC Normal [facility] Comment on above: Performed By: #### 2 [id number] #### [facility],[address] [place] [address] Donor's ABO/Rh Positive [facility] Comment on above: Performed By: #### 2 [id number] #### [facility],[address] [place] [address] Donor's Unit No [id number] [facility] Comment on above: Performed By: #### 2 [id number] #### [facility],[address] [place], [place] [address] Pt's ABO/Rh Positive [facility] Comment on above: Performed By: #### 2 [id number] #### [facility],[address] [place] [address] Unit Exp Date 03/21/2025 [facility] Comment on above: Performed By: #### 2 [id number] #### [facility],[address] [place] [address] BB TYPE & SCREENon 5 ABO O [facility] Comment on above: Performed By: #### 2 11393 #### [facility],[address] [place] [address] ANTIBODY SCR Negative [facility] Comment on above: Performed By: #### 2 63063 #### [facility],[address] [place] [address] BB TYPE & SCREEN Normal [facility] Comment on above: Result Comment: TYPE , Rh, AND SCREEN Performed By: #### 2 87834 #### [facility],[address] [place] [address] Rh Nom (Bld) Positive Normal [facility] Comment on above: Performed By: #### 2 90517 #### [facility],[address] [place] [address] CBC + DIFFon 02-25-2025 Baso # 0.01 x10EE3/UL Normal 0.00 - 0.10 [facility] Comment on above: Performed By: #### 2 [id number] #### [facility],[address] [place] [address] Basophils/100 WBC (Bld) 0.2 % Normal 0.0 - 2.0 [facility] Comment on above: Performed By: #### 2 18002 #### [facility],[address] [place] [address] CBC + DIFF Normal [facility] Comment on above: Result Comment: CBC- COMPLETE BLOOD COUNT Performed By: #### 2 [id number] #### [facility],[address] [place] [address] EO # 0.18 x10EE3/UL Normal 0.00 - 0.50 [facility] Comment on above: Performed By: #### 2 18889 #### [facility],[address] [place] [address] Eosinophils/100 WBC (Bld) 3.3 % Normal 0.0 - 7.0 [facility] Comment on above: Performed By: #### 2 20626 #### [facility],[address] [place] [address] Erythrocyte distribution width (RBC) [Ratio] 12.9 % Normal 12.0 - 15.6 [facility] Comment on above: Performed By: #### 2 76082 #### [facility],[address] [place] [address] Hematocrit (Bld) [Volume fraction] 22.7 % Low 34.0 - 46.0 [facility] Comment on above: Performed By: #### 2 96747 #### [facility],[address] [place] [address] Hemoglobin (Bld) [Mass/Vol] 7.7 g/dL Low 12.0 - 16.0 [facility] Comment on above: Performed By: #### 2 90757 #### [facility],[address] [place] [address] Lymph # 1.76 x10EE3/UL Normal 0.80 - 2.80 [facility] Comment on above: Performed By: #### 2 85320 #### [facility],[address] [place] [address] Lymphocytes/100 WBC (Bld) 31.0 % Normal 20.0 - 45.0 [facility] Comment on above: Performed By: #### 2 10844 #### [facility],[address] [place] [address] MANUAL DIFF N/A Normal [facility] Comment on above: Performed By: #### 2 [id number] #### [facility],[address] [place], [place] [id number] MCH (RBC) [Entitic mass] 34 pg High 27 - 33 [facility] Comment on above: Performed By: #### 2 97364 #### [facility],[address] [place] [address] MCHC 34 X10 3 Normal 32 - 36 [facility] Comment on above: Performed By: #### 2 72357 #### [facility] [facility],[address] [place] [address] MCV (RBC) [Entitic vol] 99 fL Normal 80 - 99 J l [facility] Comment on above: Performed By: #### 2 08936 #### [facility],[address] [place] [address] 27831 Eaton # 0.44 x10EE3/UL Normal 0.20 - 1.00 [facility] Comment on above: Performed By: #### 2 98286 #### [facility],[address] [place] [address] MONOS % 7.7 % Normal 0.0 - 10.0 [facility] Comment on above: Performed By: #### 2 13860 #### [facility],[address] [place] [address] Morphology Eliel (Bld) [Interp] N/A Normal [facility] Comment on above: Performed By: #### 2 84462 #### [facility],[address] [place] [address] Neut # 3.28 x10EE3/UL Normal 1.50 - 7.10 [facility] Comment on above: Performed By: #### 2 87932 #### [facility],[address] [place], [place] [id number] Neutrophils/100 WBC (Bld) 57.8 % Normal 46.0 - 76.0 [facility] Comment on above: Performed By: #### 2 63473 #### [facility],[address] [place] [address] PLATELET 250 x10EE3/UL Normal 150 - 450 [facility] Comment on above: Performed By: #### 2 33088 #### [facility],[address] [place] [address] 19412 Platelet mean volume (Bld) [Entitic vol] 6.9 fL Normal 6.6 - 10.5 [facility] Comment on above: Result Comment: AUTO MATED DIFFERENTIAL Performed By: #### 2 07905 #### [facility],[address] [place] [address] 43992 RBC 2.30 x 10EE6/UL Low 4.10 - 5.30 [facility] Comment on above: Performed By: #### 2 99861 #### [facility],[address] [place] [address] 32805 WBC 5.7 x 10EE3/UL Normal 4.5 - 10.8 [facility] Comment on above: Performed By: #### 2 15429 #### [facility],[address] [place] [address] 59545 CMP with eGFRon 02-25-2025 AGE 64 years Normal [facility] Comment on above: Performed By: #### 2 82035 #### [facility],[address] [place] [address] 72967 Albumin [Mass/Vol] 2.8 g/dL Low 3.4 - 5.0 [facility] Comment on above: Performed By: #### 2 92494 #### [facility],[address] [place] [address] 74522 Albumin/Globulin [Mass ratio] 1.2 {ratio} Normal 0.9 - 1.6 [facility] Comment on above: Performed By: #### 2 49663 #### [facility],[address] [place] [address] 63869 ALK PHOS 56 U/L Normal 46 - 116 [facility] Comment on above: Performed By: #### 2 49914 #### [facility],[address] [place] [address] 95414 ALT [Catalytic activity/Vol] 16 U/L Normal 16 - 63 [facility] Comment on above: Performed By: #### 2 51068 #### [facility],[address] [place] [address] 69727 Anion gap [Moles/Vol] 12 mmol/L Normal 10 - 20 [facility] Comment on above: Performed By: #### 2 02860 #### [facility],[address] [place] [address] 07678 AST [Catalytic activity/Vol] 11 U/L Low 13 - 39 [facility] Comment on above: Performed By: #### 2 39337 #### [facility],[address] [place] [address] 20271 B/C RATIO 66 ratio High 0 - 30 [facility] Comment on above: Performed By: #### 2 01233 #### [facility],[address] [place] [address] 55847 Bilirubin [Mass/Vol] 0.2 mg/dL Normal 0.2 - 1.0 [facility] Comment on above: Performed By: #### 2 95045 #### [facility],[address] [place] [address] 00091 Calcium [Mass/Vol] 7.6 mg/dL Low 8.5 - 10.1 [facility] Comment on above: Performed By: #### 2 10943 #### [facility],[address] [place] [address] 87262 Chloride [Moles/Vol] 109 mmol/L High 98 - 107 [facility] Comment on above: Performed By: #### 2 27809 #### [facility],[address] [place] [address] 48129 CMP with eGFR Normal [facility] Comment on above: Result Comment: COMP REHENSIVE METABOLIC PANEL Performed By: #### 2 51675 #### [facility],[address] [place] [address] 15747 CO2 [Moles/Vol] 26.1 mmol/L Normal 21.0 - 32.0 [facility] Comment on above: Performed By: #### 2 06977 #### [facility],[address] [place] [address] 49689 Creatinine [Mass/Vol] 0.76 mg/dL Normal 0.55 - 1.02 [facility] Comment on above: Performed By: #### 2 79251 #### [facility],[address] [place] [address] 19243 GFR/1.73 sq M.predicted among non-blacks MDRD (S/P/Bld) [Vol rate/Area] mL/min/{1.73_m2} Normal 60 - 999 [facility] Comment on above: Performed By: #### 2 51771 #### [facility],[address] [place] [address] 86825 Result Comment: ACCO RDING TO THE NATIONAL KIDNEY DISEASE EDUCATION PROGRAM(NKDE), A NORMAL eGFR IS A VALUE GREATER THAN OR EQUAL TO 60 ML/MIN/1.73 SQ METERS. CHRONIC KIDNEY DISEASE: <60mL/MIN/1.73 SQ METERS KIDNEY FAILURE: <15mL/MIN/1.73 SQ METERS THIS TEST SHOULD ONLY BE USED FOR PATIENTS 18 YEARS OF AGE AND OLDER. Globulin (S) [Mass/Vol] 2.3 g/dL Normal 1.5 - 3.8 [facility] Comment on above: Performed By: #### 2 14447 #### [facility],[address] [place] [address] 88423 Glucose [Mass/Vol] 115 mg/dL High 74 - 106 [facility] Comment on above: Performed By: #### 2 98111 #### [facility],[address] [place] [address] 58464 Potassium [Moles/Vol] 3.9 mmol/L Normal 3.5 - 5.1 [facility] Comment on above: Performed By: #### 2 06834 #### [facility],[address] [place] [address] 61999 Protein [Mass/Vol] 5.1 g/dL Low 6.4 - 8.2 [facility] Comment on above: Performed By: #### 2 90059 #### [facility],[address] [place] [address] 49069 Sodium [Moles/Vol] 143 mmol/L Normal 136 - 145 [facility] Comment on above: Performed By: #### 2 13543 #### [facility],[address] [place] [address] 46315 Urea nitrogen [Mass/Vol] 50 mg/dL High 7 - 18 [facility] Comment on above: Performed By: #### 2 31000 #### [facility],[address] [place] [address] ABDOMEN/PELVIS Won 2024 CT ABDOMEN/PELVIS W [address] [address] Patient: AMIE RYAN Phone#: : 1960 Age: 64 Gender: F Pt. Type: ER Account: [id number] Location: [facility] Ordering: ESTUARDO PARKINSON Exam Date: 02/25/2025/11:03 Family Phys: RENATO BONILLA Charge Code: [id number] Physician: [place] Order #: [id number] Dose#: 18.20 mGy PROCEDURE: CT ABDOMEN/PELVIS WITH CONTRAST COMPARISON: [facility], CT, ABDOMEN/PELVIS W W/O CON, 04/30/2023, 12:57. INDICATIONS: Abdominal pain. TECHNIQUE: After obtaining the patient's consent, CT images were created with non-ionic intravenous contrast material. All CT scans at this facility use dose modulation, iterative reconstruction, and/or weight based dosing when appropriate to reduce radiation dose to as low as reasonably achievable. IV CONTRAST: Omnipaque 350,100ml TOTAL DOSE: 18.20 CTDIvol(mGy) FINDINGS: LIVER: Fatty changes of the liver are present. BILIARY: Normal. No visible dilatation or calcification. PANCREAS: Normal. No lesion, fluid collection, ductal dilatation, or atrophy. SPLEEN: Normal. No enlargement or focal lesion. KIDNEYS: Multiple bilateral renal cysts. ADRENALS: Normal. No mass or enlargement. AORTA/VASCULAR: Calcification is present. No aneurysm or dissection. RETROPERITONEUM: Normal. No mass or adenopathy. BOWEL/MESENTERY: Normal. No visible mass, obstruction, or bowel wall thickening. ABDOMINAL WALL: Normal. No mass or hernia. URINARY BLADDER: Normal. No visible focal wall thickening, lesion, or calculus. PELVIC NODES: Normal. No adenopathy. PELVIC ORGANS: Normal. No visible mass. Pelvic organs appropriate for patient age. BONES: Degenerative changes of the spine are present most marked at the L2-3 level.. No bony lesion or fracture. LUNG BASES: Normal. No visible pulmonary or pleural disease. OTHER: Negative. CONCLUSION: Continued Report - Page 2 of 2 Patient: AMIE RYAN Phone#: : 1960 Age: 64 Gender: F Pt. Type: ER Account: [id number] Location: 052 Ordering: Flared3DISINGER Exam Date: 02/25/2025/11:03 Family Phys: RENATO BONILLA Charge Code: [id number] Physician: [place] Order #: [id number] Dose#: 18.20 mGy 1. There is no evidence of acute abdominal or pelvic abnormality. Dictated by: Etelvina Mtz MD on 02/25/2025 at 12:05 Approved by: Etelvina Mtz MD on 02/25/2025 at 12:11 [address] [facility] CT CHEST (PE PROTOCOL)on CT CHEST (PE PROTOCOL) [place] [address] Patient: AMIE RYAN Phone#: : 1960 Age: 64 Gender: F Pt. Type: ER Account: [id number] Location: 052 Ordering: Flared3DISINGER Exam Date: 02/25/2025/11:03 Family Phys: RENATO BONILLA Charge Code: [id number] Physician: [place] Order #: [id number] Dose#: 18.20 mGy PROCEDURE: CT CHEST WITH CONTRAST FOR PE COMPARISON: None. INDICATIONS: Chest pain. TECHNIQUE: After obtaining the patient's consent, CT images were obtained with non-ionic intravenous contrast material. Multi-planar images were created to optimize visualization of vascular anatomy with MPR/MIPS and 3D imaging. All CT scans at this facility use dose modulation, iterative reconstruction, and/or weight based dosing when appropriate to reduce radiation dose to as low as reasonably achievable. IV CONTRAST: Omnipaque 350,100ml TOTAL DOSE: 18.20 CTDIvol(mGy) FINDINGS: VASCULATURE: Normal. No visible pulmonary arterial thrombus or attenuation. AORTA: Normal. No aneurysm or dissection. LUNGS: Normal. No visible pulmonary disease. KATI: Normal. No mass or adenopathy. MEDIASTINUM: Normal. No mass or adenopathy. CARDIAC: Normal. No enlargement, pericardial thickening, or significant calcification. PLEURA: Normal. No mass or effusion. CHEST WALL: Normal. No mass or axillary adenopathy. LIMITED ABDOMEN: Normal. Limited images of the upper abdomen are unremarkable. BONES: Normal. No bony lesion or fracture. OTHER: Negative. CONCLUSION: 1. There is no evidence of pulmonary embolus. 2. There is no evidence of acute pulmonary abnormality. Dictated by: Etelvina Mtz MD on 02/25/2025 at 12:03 Continued Report - Page 2 of 2 Patient: AMIE RYAN Phone#: : 1960 Age: 64 Gender: F Pt. Type: ER Account: [id number] Location: 052 Ordering: ESTUARDO PARKINSON Exam Date: 02/25/2025/11:03 Family Phys: RENATO BONILLA Charge Code: [id number] Physician: [place] Order #: [id number] Dose#: 18.20 mGy Approved by: Etelvina Mtz MD on 02/25/2025 at 12:04 Normal [facility] D-DIMER, QUANTITATIVEon 02-01 D-DIMER QUANT <200 Normal 0 - 230 [facility] Comment on above: Performed By: #### 2 76820 #### [facility],[address] [place], [place] [id number] D-DIMER, QUANTITATIVE Normal [facility] Comment on above: Result Comment: JEANNETTE T D-DIMER Performed By: #### 2 46485 #### [facility],[address] [place] [address] 36354 NT-proBNPon 08-26-2025 Natriuretic peptide B (Bld) [Mass/Vol] 37 pg/mL Normal 0 - 125 [facility] Comment on above: Performed By: #### 2 19856 #### [facility],[address] [place], [place] [address] OCCULT BLOOD STOOL(NON-CANCE R SCREENING)on 02-25-2025 OCCULT BLOOD STOOL Positive Abnormal [facility] Comment on above: Performed By: #### 2 43763 #### [facility],[address] [place], [place] [id number] TROPONINon 02-25-2025 HS TROPONIN 12.0 pg/mL Normal 0.0 - 51.4 [facility] Comment on above: Performed By: #### 2 63600 #### [facility],[address] [place] [address] 64394 HS TROPONIN 12.5 pg/mL Normal 0.0 - 51.4 [facility] Comment on above: Performed By: #### 2 65688 #### [facility],[address] [place], [place] [address] Absolute lymphocyte countOrd ered By: Renato Bonilla on 02-24-2025 Lymphocytes Auto (Unsp spec) [#/Vol] 3.14 10*3/uL 0.83-4.51 [facility] Absolute neutrophil countOrd ered By: Renato Bonilla on 02-24-2025 Neutrophils (Bld) [#/Vol] 4.0 10*3/uL 2.0-7.7 [facility] Anion gap in Serum or Plasma Ordered By: Renato Bonilla on 02-24-2025 Anion gap [Moles/Vol] 13 mmol/L - [facility] Automated lymphocyte count a s percentage of total leukocytesOrdered By: Renato Bonilla on 02-24-2025 Lymphocytes/100 WBC Auto (Unsp spec) 38.6 % [facility] BUN/creatinine ratioOrdered By: Renato Bonilla on 02-24-2025 Urea nitrogen/Creatinine [Mass ratio] 42.2 mg/mg High - [facility] Basic Metabolic Profile (BMP )on 02-24-2025 BUN/CRE 42.2 RATIO High 10-20 [facility] Comment on above: Order Comment: 3 Performed By: #### L 500.4050, L100.0100, L501.9520, L506.1001, L500.4100 #### [facility] [address] [place], [address] Calcium [Mass/Vol] 9.6 mg/dL Normal 7.6-11.0 [facility] Comment on above: Order Comment: 3 Performed By: #### L 500.4050, L100.0100, L501.9520, L506.1001, L500.4100 #### [facility] [address] [place], [address] Chloride [Moles/Vol] 100 mmol/L Normal 98-108 [facility] Comment on above: Order Comment: 3 Performed By: #### L 500.4050, L100.0100, L501.9520, L506.1001, L500.4100 #### [facility] [address] [place], [address] CO2 [Moles/Vol] 24.8 mmol/L Normal 21.0-32.0 [facility] Comment on above: Order Comment: 3 Performed By: #### L 500.4050, L100.0100, L501.9520, L506.1001, L500.4100 #### [facility] [address] [place], [address] Creatinine [Mass/Vol] 1.00 mg/dL Normal 0.70-1.20 [facility] Comment on above: Order Comment: 3 Performed By: #### L 500.4050, L100.0100, L501.9520, L506.1001, L500.4100 #### [facility] [address] [place], [address] GAP 13 Normal 5-15 [facility] Comment on above: Order Comment: 3 Performed By: #### L 500.4050, L100.0100, L501.9520, L506.1001, L500.4100 #### [facility] [address] [place], [address] GFR/1.73 sq M.predicted among non-blacks MDRD (S/P/Bld) [Vol rate/Area] 64 mL/min/{1.73_m2} Normal >60 [facility] Comment on above: Order Comment: 3 Result Comment: mL/m in/1.73m2 CKD-EPI Creatinine Equation (2020) Performed By: #### L 500.4050, L100.0100, L501.9520, L506.1001, L500.4100 #### [facility] [address] [place], [address] Glucose [Mass/Vol] 101 mg/dL High 70-99 [facility] Comment on above: Order Comment: 3 Performed By: #### L 500.4050, L100.0100, L501.9520, L506.1001, L500.4100 #### [facility] [address] [place], [address] Potassium [Moles/Vol] 3.6 mmol/L Normal 3.3-5.1 [facility] Comment on above: Order Comment: 3 Performed By: #### L 500.4050, L100.0100, L501.9520, L506.1001, L500.4100 #### [facility] [address] [place], [address] Sodium [Moles/Vol] 138 mmol/L Normal 133-145 [facility] Comment on above: Order Comment: 3 Performed By: #### L 500.4050, L100.0100, L501.9520, L506.1001, L500.4100 #### [facility] [address] [place], [address] Urea nitrogen [Mass/Vol] 42 mg/dL High 4-19 [facility] Comment on above: Order Comment: 3 Performed By: #### L 500.4050, L100.0100, L501.9520, L506.1001, L500.4100 #### [facility] [address] [place], [address] Basophil percentageOrdered B y: Renato Bonilla on 02-24-2025 Basophils/100 WBC (Bld) 0.5 % 0-1 [facility] Blood manual differential co mment interpretation (narrative result)Ordered By: Renato Bonilla on 02-24-2025 Manual differential comment Eliel (Bld) [Interp] SCANNED [facility] CBC W/Diff, Automatedon 02-01 PLT EST ADEQUATE Normal ADEQ [facility] Comment on above: Performed By: #### L 500.4050, L100.0100, L501.9520, L506.1001, L500.4100 #### [facility] [address] [place], [address] SMEAR COMMENT SCANNED Normal [facility] Comment on above: Performed By: #### L 500.4050, L100.0100, L501.9520, L506.1001, L500.4100 #### [facility] [address] [place], [address] Carbon dioxide, total [Moles /volume] in Central venous bloodOrdered By: Renato Bonilla on 02-24-2025 CO2 [Moles/Vol] 24.8 mmol/L 21.0-32.0 [facility] Chloride assayOrdered By: Lonny Bonilla on 02-24-2025 Chloride [Moles/Vol] 100 mmol/L 98-108 [facility] Eosinophil percentageOrdered By: Renato Bonilla on 02-24-2025 Eosinophils/100 WBC (Bld) 2.1 % 0-5 [facility] Erythrocyte distribution wid th ratioOrdered By: Renato Bonilla on 02-24-2025 Erythrocyte distribution width (RBC) [Ratio] 12.1 % 11.6-14.6 [facility] Erythrocyte distribution wid th standard deviationOrdered By: Renato Bonilla 02-24-2025 Erythrocyte distribution width (RBC) [Ratio] 44.3 fl High 35.1-43.9 [facility] Glomerular filtration rate ( GFR) estimation/1.73 sq m using serum, plasma, or whole bOrdered By: Renato Bonilla 02-24-2025 GFR/1.73 sq M.predicted among non-blacks MDRD (S/P/Bld) [Vol rate/Area] 64 mL/min/{1.73_m2} >60 [facility] Comment on above: mL/min/1.73m2 CKD-EP I Creatinine Equation (2020) Hematocrit Auto (Bld) [Volum e fraction]Ordered By: Renato Bonilla 02-24-2025 Hematocrit (Bld) [Volume fraction] 34.3 % Low 37-47 [facility] Hemoglobin measurementOrdere d By: Renato Bonilla 02-24-2025 Hemoglobin (Bld) [Mass/Vol] 11.5 g/dL Low 12.0-15.0 [facility] Immature granulocytes/100 WB C Auto (Bld)Ordered By: Renato Bonilla 02-24-2025 Immature granulocytes/100 WBC (Bld) 0.200 % 0.0-0.9 [facility] Comment on above: IG% - Immature Granu locytes (promyelocytes, myelocytes and metamyelocytes) > 1% indicates that a LEFT SHIFT is Present. MCV (mean corpuscular volume ) determinationOrdered By: Renato Bonilla 02-24-2025 MCV (RBC) [Entitic vol] 98.0 fL 81-99 [facility] Mean corpuscular hemoglobin (MCH) determinationOrdered By: Renato Bonilla 02-24-2025 MCH (RBC) [Entitic mass] 32.9 pg High 27.0-32.0 [facility] Mean corpuscular hemoglobin concentration (MCHC) determinationOrdered By: Renato Bonilla 02-24-2025 MCHC (RBC) [Mass/Vol] 33.5 g/dL 32-36 [facility] Mean platelet volume determi nationOrdered By: Renato Bonilla 02-24-2025 Platelet mean volume (Bld) [Entitic vol] 9.0 fL 6.2-12.0 [facility] Monocyte percentageOrdered B y: Renato Bonilla on 02-24-2025 Monocytes/100 WBC (Bld) 9.6 % 0-10 [facility] Neutrophil percentageOrdered By: Renato Bonilla on 02-24-2025 Neutrophils/100 WBC (Bld) 49.0 % 47-70 [facility] Nucleated red blood cell per centageOrdered By: Renato Bonilla on 02-24-2025 Nucleated RBC/100 WBC (Bld) [Ratio] 0 % 0-5 [facility] Platelet countOrdered By: Lonny Bonilla on 02-24-2025 Platelets (Bld) [#/Vol] 282 10*3/uL 150-450 [facility] Platelet estimateOrdered By: Renato Bonilla on 02-24-2025 Platelets LM Ql (Bld) ADEQUATE ADEQ [facility] Potassium measurement (mass/ volume)Ordered By: Renato Bonilla on 02-24-2025 Potassium (Unsp spec) [Mass/Vol] 3.6 mmol/L 3.3-5.1 [facility] RBC Auto (Bld) [#/Vol]Ordere d By: Renato Bonilla on 02-24-2025 RBC (Bld) [#/Vol] 3.50 10*6/uL Low 4.2-5.4 [facility] Serum creatinine measurement (mass/volume)Ordered By: Renato Bonilla on 02-24-2025 Creatinine [Mass/Vol] 1.00 mg/dL 0.70-1.20 [facility] Serum glucose measurement (m ass/volume)Ordered By: Renato Bonilla on 02-24-2025 Glucose [Mass/Vol] 101 mg/dL High 70-99 [facility] Serum or plasma calcium tejas urement (mass/volume)Ordered By: Renato Bonilla on 02-24-2025 Calcium [Mass/Vol] 9.6 mg/dL 7.6-11.0 [facility] Serum or plasma urea nitroge n measurement (mass/volume)Ordered By: Renato Bonilla on 02-24-2025 Urea nitrogen [Mass/Vol] 42 mg/dL High 4-19 [facility] Sodium levelOrdered By: Renato Bonilla on 02-24-2025 Sodium [Moles/Vol] 138 mmol/L 133-145 [facility] Stool Occult Blood iFOBon STOB Negative Normal [facility] Comment on above: Performed By: #### L 500.4050, L100.0100, L501.9520, L506.1001, L500.4100 #### [facility] [address] [place], [place], [id number] Stool gastrointestinal hemog lobin detection by immunologic methodOrdered By: Renato Carpenterok on 02-24-2025 Lower GI hemoglobin IA Ql (Stl) [facility] White blood cell (WBC) count Ordered By: Renato Bonilla on 02-24-2025 WBC (Bld) [#/Vol] 8.1 10*3/uL 4.4-11.0 [facility] Influenza virus A and B and SARS-CoV-2 (COVID-19) and Respiratory syncytial virus RNAOrdered By: Renato Carpenterok on 02-19-2025 SARS-CoV-2 (COVID-19) RNA SANJU+probe Ql (Unsp spec) [facility] M100.678on 02-19-2025 M100.678 Pending SARS-CoV-2 (COVID 19) Negative INFLUENZA A Negative INFLUENZA B Negative RSV PCR Negative Normal [facility] Comment on above: Performed By: #### L 500.4050, L100.0100, L501.9520, L506.1001, L500.4100 #### [facility] [address] [place], [place], [address] Cardiology Visit Reporton Cardiology Visit Report [facility] [address] [place], [place] [address] OFFICE VISIT Date of Service: 12/02/24 MR#: [id number] Acct: [id number] Name: AMIE RYAN Rep #: [id number] : 1960 Provider: JENNIFER morales Age/Sex: 64/F Location: [facility] Status: Signed HPI HPI History of Present Illness Details: This is a 64-year-old female who presents today for a cardiovascular follow-up visit. She has a history of presyncopal episodes, SVT???she was referred to electrophysiology at [facility] but they canceled her appointment for some reason. She has a history of coronary artery disease with stent placement in June 2023, dyslipidemia, pseudoaneurysm of the aorta, and hypertension. From a cardiac standpoint, the patient is doing well. She denies any palpitations, chest pain, pressure or heaviness. She denies SOB, Orthopnea, and PND. She does not have bleeding issues; no blood in urine, stool, or nosebleeds. She denies any decrease in energy level, myalgias, or claudication. She does not have edema, or sudden weight gain. She denies lightheadedness, dizziness, syncopal or near syncopal episodes, and headaches. Intake Vital Signs 10/21/24 15:33 12/02/24 07:02 Height 5 ft 4 in 5 ft 4 in Weight: 133 lb BMI 22.8 BP 118/68 Blood Pressure Location Lt brachial Position Sitting Respiration 18 Pulse 60 Pulse Source Monitor Pulse Oximetry (%) 98 Intake Visit Reasons: 6 W [employer] Supervisor Required: No Is patient in pain?: No Allergies No Known Allergies Allergy (Verified 12/02/24 15:32) Medications ???Medication ???Instructions ???Recorded ???Confirmed ???Type magnesium oxide 400 mg PO DAILY 11/12/21 12/02/24 History cyclobenzaprine 10 mg tablet 10 mg PO DAILY PRN muscle spasm 12/02/24 History atorvastatin 40 mg tablet 40 mg PO QHS #30 tabs 05/17/2308/27 Rx cholecalciferol (vitamin D3) 25 25 mcg PO DAILY 05/31/23 12/02/24 History mcg (1,000 unit) tablet (Vitamin D3) aspirin 81 mg tablet,delayed 81 mg PO DAILY 06/12/23 12/02/24 H istory release (Adult Aspirin Regimen) calcium carbonate (Calcium 600) 600 mg PO DAILY 02/22/24 12/02/24 History ferrous sulfate 325 mg (65 mg 325 mg PO Q OTHER DAY 02/22/2408/27 History iron) tablet (FeroSul) losartan 50 mg tablet 50 mg PO DAILY #90 tabs 06/28/24 0 12/02/24 Rx amlodipine 5 mg tablet 5 mg PO DAILY #30 tabs 10/21/24 Rx cephalexin 250 mg capsule 250 mg PO TID 12/02/24 12/02/24 Hi story Ejection fraction %: 65 Have you fallen in the past year?: Yes PFSH Medical History Coronary artery disease Raynauds phenomenon Dyslipidemia Palpitations Hypokalemia Abnormal findings diagnostic imaging of heart and coronary circulation (06/07/23) Atherosclerotic heart disease of [place] coronary artery without angina pectoris (06/07/23) 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) Anxiety Shortness of breath on exertion History of echocardiogram History of stress test Cardiology follow-up encounter History of irregular heartbeat Guaiac positive stools Abnormal ECG Anemia Blood in stool Pseudoaneurysm of aorta Fatigue Syncope Vitamin D deficiency Major depressive disorder, recurrent episode, in full remission Lightheadedness Numbness and tingling in both hands Bradycardia Wears contact lenses Post-menopausal Excessive bleeding Easy bruising Restless legs Back pain History of IBS Former smoker Encounter for screening for malignant neoplasm of colon Muscle spasm Hyperlipidemia Hypertension Surgical History Stented coronary artery (06/15/23) Hx of hysterectomy Hx of colonoscopy Family History Mother Hypertension Cancer Arthritis CVA (cerebral vascular accident) Stomach ulcer Father Cancer bladder Grandmother Cancer Uncle Prostate carcinoma Social History household members: spouse Smoking Status: Former smoker alcohol intake: former year quit: 1990 substance use type: does not use caffeine: Yes Type: carbonated beverages Number of servings: 1 ROS Const Const: Negative for fatigue, weakness, headache(s) or frequent falls Eyes Eyes: Negative for blurry vision ENT ENT: Negative for headache(s), dizziness or Nosebleed/epistaxis Cardio Chest Pain: No Palpitations: No Edema: None Muscle aches with walking: None Resp Respiratory: Negative for SOB with activity, SOB at rest or SOB orthopnea SOB lying down GI GI: Negative nausea, vomiting, heartburn, bright, red blood in stools or black,tarry stools : (more content not included)... Normal [facility] Magnetic resonance imaging r eportOrdered By: Megan Akbar on 12-02-2024 Study report [facility] [address] [place] [address] MRI Abd WITH and W/O Contrast MR#: [id number] Acct: [id number] Name: AMIE RYAN Rep #: [id number] : 1960 F 64 From: Blaine Akbar MD PCP: Dr. Renato Bonilla MD Status: [facility] Study:MRI Abd WITH and W/O Contrast Date of E xam: 11/29/24 Exam# [id number] Ordering Dr: Renato Bonilla MD PROCEDURE: MRI ABD WITH AND W/O CONTRAST 11/29/2024 REASON FOR EXAM: LT KIDNEY CYST TECHNIQUE: MRI of the upper abdomen without and with intravenous gadolinium-based contrast.Multiplanar and multisequence images were obtained. CONTRAST: CLARISCAN VOLUME: 13mL gauge IV COMPARISON: ULTRASOUND EXAM ON 10/31/2024. FINDINGS: Unchanged scattered right renal simple cysts with the largest measuring 8 mm. Unchanged scattered left renal simple cysts with the largest measuring 1.5 cm. The previously described septated cyst in the mid aspect of the left kidney measures 1.1 x 1.2 x 1.1 cm. No associated suspicious enhancing nodule. Findings are probably suggestive of Bosniak type 2cyst. The visualized lung bases are unremarkable. Normal liver. Normal gallbladder and extrahepatic biliary system. Normal spleen. Normal pancreas. Normal bilateral adrenal glands. Normal size of the right kidney. There is no right renal mass. There are no right renal calculi. There is no right hydronephrosis. Normal visualized right ureter. Normal size of the left kidney. There is no left renal mass. There are no leftrenal calculi. There is no left hydronephrosis. Normal visualized left ureter. Normal visualized stomach. Normal small intestine. Normal colon. There is no demonstrated peritoneal fluid. Normal abdominal aorta. Normal inferior vena cava. Normal retroperitoneum. Normal urinary bladder. There is no pelvic mass lesion or lymphadenopathy. There is no pelvic fluid. Normal abdominal wall. Normal osseous structures. MRI/MRI Abd WITH and W/O Contrast IMPRESSION: 1. Unchanged scattered right renal simple cysts with the largest measuring 8 mm. 2. Unchanged scattered left renal simple cysts with the largest measuring 1.5 cm. 3. The previously described septated cyst in the mid aspect of the left kidney measures 1.1 x 1.2 x 1.1 cm. No associated suspicious enhancing nodule. Findings are probably suggestive of Bosniak type 2cyst. Reading [facility] CC: Dr. Renato Bonilla MD ~ Care Partner: Signed [facility] MRI Abd WITH and W/O Contras ton 11-29-2024 MRI Abd WITH and W/O Contrast [facility] [address] [place] [id number] MRI Abd WITH and W/O Contrast MR#: [id number] Acct: [id number] Name: AMIE RYAN Rep #: [id number] : 1960 F 64 From: Megan gottlieb MD PCP: Dr. Renato Bonilla MD Status: REG CLI Study: MRI Abd WITH and W/O Contrast Date of Exam: Exam# [id number] Ordering Dr: Renato Bonilla MD PROCEDURE: MRI ABD WITH AND W/O CONTRAST 11/29/2024 REASON FOR EXAM: LT KIDNEY CYST TECHNIQUE: MRI of the upper abdomen without and with intravenous gadolinium-based contrast. Multiplanar and multisequence images were obtained. CONTRAST: CLARISCAN VOLUME: 13mL gauge IV COMPARISON: ULTRASOUND EXAM ON 10/31/2024. FINDINGS: Unchanged scattered right renal simple cysts with the largest measuring 8 mm. Unchanged scattered left renal simple cysts with the largest measuring 1.5 cm. The previously described septated cyst in the mid aspect of the left kidney measures 1.1 x 1.2 x 1.1 cm. No associated suspicious enhancing nodule. Findings are probably suggestive of Bosniak type 2 cyst. The visualized lung bases are unremarkable. Normal liver. Normal gallbladder and extrahepatic biliary system. Normal spleen. Normal pancreas. Normal bilateral adrenal glands. Normal size of the right kidney. There is no right renal mass. There are no right renal calculi. There is no right hydronephrosis. Normal visualized right ureter. Normal size of the left kidney. There is no left renal mass. There are no left renal calculi. There is no left hydronephrosis. Normal visualized left ureter. Normal visualized stomach. Normal small intestine. Normal colon. There is no demonstrated peritoneal fluid. Normal abdominal aorta. Normal inferior vena cava. Normal retroperitoneum. Normal urinary bladder. There is no pelvic mass lesion or lymphadenopathy. There is no pelvic fluid. Normal abdominal wall. Normal osseous structures. MRI/MRI Abd WITH and W/O Contrast IMPRESSION: 1. Unchanged scattered right renal simple cysts with the largest measuring 8 mm. 2. Unchanged scattered left renal simple cysts with the largest measuring 1.5 cm. 3. The previously described septated cyst in the mid aspect of the left kidney measures 1.1 x 1.2 x 1.1 cm. No associated suspicious enhancing nodule. Findings are probably suggestive of Bosniak type 2 cyst. Reading [facility] CC: Dr. Renato Bonilla MD Care Partner: Signed Normal [facility] ED Prov Noteon 11-28-2024 ED Prov Note ED PROVIDER NOTE [facility] EMERGENCY DEPARTMENT NAME: Amie Ryan AGE: 64 y.o. : 1960 VISIT DATE: 11/28/2024 CSN: [id number] PCP: No, Physician Chief Complaint Patient presents with Laceration Chief complaint hand injury History of present illness this is a 64-year-old female who sustained a puncture wound to her left hand just below the thumb with an X-[employer] knife while she was at work the bleeding is controlled as minor puncture clean environment Past Medical History: Diagnosis Date Hypertension Past Surgical History: Procedure Laterality Date CORONARY ANGIOPLASTY WITH STENT PLACEMENT History reviewed. No pertinent family history. Social History [1] No current outpatient medications on file prior to encounter. Allergies[2] Review of Systems All other systems reviewed and are negative. No data found. Physical Exam Vitals and nursing note reviewed. Exam conducted with a brine tank operator present. Constitutional: Appearance: Normal appearance. She is normal weight. HENT: Head: Normocephalic and atraumatic. Nose: Nose normal. Cardiovascular: Rate and Rhythm: Normal rate and regular rhythm. Musculoskeletal: Comments: Examination of left hand near the hypothenar region reveals a puncture wound this controlled and is bleeding and full range of motion of the thumb Pulmonary: Effort: Pulmonary effort is normal. Breath sounds: Normal breath sounds. Neurological: Mental Status: She is alert. Laboratory & Radiographic Imaging (if done): No results found for this visit on 11/28/24. No orders to display Procedures Medical Decision Making Differential diagnosis Puncture wound Minor laceration Wound check Will place on antibiotics and cleansed . Clinical Impression: 1. Puncture wound ED Disposition ED Disposition Discharge Condition Stable Comment Amie Ryan discharged to home/self care in stable condition. Follow-up Information 1. [place]. [address] [address] Contact information for after-discharge care Follow-up information has not been specified. New Prescriptions cephALEXin (KEFLEX) 250 MG capsule Take 1 (one) capsule (250 mg total) by mouth 4 (four) times a day for 10 days . [1] Social History Socioeconomic History Marital status: Tobacco Use Smoking status: Never Smokeless tobacco: Current Tobacco comments: Nicotine pouches Vaping Use Vaping status: Never Used Substance and Sexual Activity Alcohol use: Not Currently Drug use: Never Social Drivers of Health Financial Resource Strain: Low Risk (10/18/2024) Received from [facility] Overall Financial Resource Strain (CARDIA) Difficulty of Paying Living Expenses: Not hard at all Food Insecurity: No Food Insecurity (10/17/2024) Received from [facility] Hunger Vital Sign Worried About Running Out of Food in the Last Year: Never true Ran Out of Food in the Last Year: Never true Transportation Needs: No Transportation Needs (10/18/2024) Received from [facility] PRAPARE - Transportation Lack of Transportation (Medical): No Lack of Transportation (Non-Medical): No Stress: No Stress Concern Present (10/17/2024) Received from [facility] Citizen Of [place] of Occupational Health - Occupational Stress Questionnaire Feeling of Stress : Not at all Social Connections: Moderately Isolated (10/17/2024) Received from [facility] Social Connection and Isolation Panel [NHANES] Frequency of Communication with Friends and Family: More than three times a week Frequency of Social Gatherings with Friends and Family: Once a week Attends Jew Services: Never Active Member of Clubs or Organizations: No Attends Club or Organization Meetings: Never Marital Status: Housing Stability: Low Risk (10/18/2024) Received from [facility] Housing Stability Vital Sign Unable to Pay for Housing in the Last Year: No Number of Times Moved in the Last Year: 0 Homeless in the Last Year: No [2] No Known Allergies Osmany Reece MD 11/30/24 09 AUTHENTICATED BY OSMANY REECE, ON 11/30/2024 09:06:27 Normal [facility] Urine Cultureon 11-14-2024 [facility] Urine Culture Mixed Gram Pos Gram Neg Org [place] Count 50,000-80,000 MIXC Mixed contaminants. Submit a new specimen if indicated. Normal [facility] Comment on above: Performed By: #### L 500.4050, L100.0100, L501.9520, L506.1001, L500.4100 #### [facility] [address] [place], [address] Urine cultureOrdered By: Renato Bonilla on 11-11-2024 Bacteria identified Cx Nom (U) Mixed Gram Pos & Gram Neg Org Abnormal [facility] Carotid Duplex Ultrasoundon 10-31-2024 Carotid Duplex Ultrasound [facility] [address] [place] [address] Carotid Duplex Ultrasound 10/31/24 1248 MR#: [id number] Acct: [id number] Name: AMIE RYAN Rep #: [id number] : 1960 64 From: Zelalem Anderson MD Attending Dr: Dr. Renato Bonilla MD Status: REG CLI Ordering Dr: Iva Calhoun FOOD DEMONSTRATOR FOOD DEMONSTRATOR-C Date: 10/31/24 Location: US Sex: F C Admitted: Reason For Study Reason For Study: Syncope Rt. Velocities/BP Lt. Velocities/BP Prox CCA 122.9/9.7 cm/sec. Prox CCA 65.5/12.6 cm/sec. Mid CCA 77.7/9.0 cm/sec. Mid CCA 76.8/15.4 cm/sec. Dist CCA 52.0/17.9 cm/sec. Dist CCA 73.0/21.1 cm/sec. Prox ICA 43.3/13.0 cm/sec. Prox ICA 46.3/11.7 cm/sec. Mid ICA 55.1/12.7 cm/sec. Mid ICA 25.5/9.5 cm/sec. Dist ICA 48.9/19.5 cm/sec. Dist ICA 75.3/26.8 cm/sec. Rt. ICA/CCA = 0.7. Lt. ICA/CCA = 1.0. Prox ECA 55.7/9.5 cm/sec. Prox ECA 28.7/6.6 cm/sec. Rt. Vert. 31.5/12.6 cm/sec. Lt. Vert. 45.8/11.4 cm/sec. Right Extracranial There is homogeneous, irregular atherosclerotic plaque noted in the right common carotid artery. There is heterogeneous, irregular atherosclerotic plaque noted in the right internal carotid artery. The right internal carotid artery is very tortuous. There is heterogeneous, irregular atherosclerotic plaque noted in the right external carotid artery. Antegrade flow is noted in the right vertebral artery. Left Extracranial There is heterogeneous, irregular atherosclerotic plaque noted in the left common carotid artery. There is heterogeneous, irregular atherosclerotic plaque noted in the left internal carotid artery. The left internal carotid artery is very tortuous. There is heterogeneous, irregular atherosclerotic plaque noted in the left external carotid artery. Antegrade flow is noted in the left vertebral artery. Procedure Carotid Duplex 99681. This is a Carotid Duplex examination using B-mode, color flow and specral Doppler. Exam performed in department. VL/Carotid Duplex Ultrasound Interpretation Summary Mild (<50%) stenosis right extracranial internal carotid. Mild (<50%) stenosis left extracranial internal carotid. Patent and antegrade vertebrals bilaterally. Ordering Physician: Iva Calhoun Referring Physician: Renato Bonilla Chi Performed By: Susan Pike, RVT 10/31/24 1714 Date Zelalem Anderson MD CC: FOOD DEMONSTRATOR-C Iva Calhoun; Dr. Renato Bonilla MD Date Dictated: 10/31/24 1248 Date Transcribed: 10/31/241713 Care Partner: Signed Normal [facility] Duplex ultrasound of carotid artery reportOrdered By: Zelalem Anderson on 10-31-2024 Study report [facility] [address] [place] [address] Carotid Duplex Ultrasound 10/31/24 1248 MR#: [id number] Acct: [id number] Name: AMIE RYAN Rep #:[id number] : 1960 64 From: Zelalem Weinberg Attending Dr: Dr. Renato Bonilla MD Status: REG CLI Ordering Dr: Iva Calhoun FOOD DEMONSTRATOR FOOD DEMONSTRATOR-C Regan e: 10/31/24 Location: US Sex: F C Admitted: Reason For Study Reason For Study: Syncope Rt. Velocities/BP Lt. Velocities/BP Prox CCA 122.9/9.7 cm/sec. Prox CCA 65.5/12.6 cm/sec. Mid CCA 77.7/9.0 cm/sec. Mid CCA 76.8/15.4 cm/sec. Dist CCA 52.0/17.9 cm/sec. Dist CCA 73.0/21.1 cm/sec. Prox ICA 43.3/13.0 cm/sec. Prox ICA 46.3/11.7 cm/sec. Mid ICA 55.1/12.7 cm/sec. Mid ICA 25.5/9.5 cm/sec. Dist ICA 48.9/19.5 cm/sec. Dist ICA 75.3/26.8 cm/sec. Rt. ICA/CCA = 0.7. Lt. ICA/CCA = 1.0. Prox ECA 55.7/9.5 cm/sec. Prox ECA 28.7/6.6 cm/sec. Rt. Vert. 31.5/12.6 cm/sec. Lt. Vert. 45.8/11.4 cm/sec. Right Extracranial There is homogeneous, irregular atherosclerotic plaque noted in the right commoncarotid artery. There is heterogeneous, irregular atherosclerotic plaque noted in the right internal carotid artery. Theright internal carotid artery is very tortuous. There is heterogeneous, irregular atherosclerotic plaque noted in the right external carotid artery. Antegrade flow is noted in the right vertebral artery. Left Extracranial There is heterogeneous, irregular atherosclerotic plaque noted in the left common carotid artery. There is heterogeneous, irregular atherosclerotic plaque noted in the left internal carotid artery. The left internal carotid artery is very tortuous. There is heterogeneous, irregular atherosclerotic plaque noted in the left external carotid artery. Antegrade flow is noted in the left vertebral artery. Procedure Carotid Duplex 89342. This is a Carotid Duplex examination using B-mode, color flow and specral Doppler. Exam performed in department. VL/Carotid Duplex Ultrasound Interpretation Summary Mild (<50%) stenosis right extracranial internal carotid. Mild (<50%) stenosis left extracranial internal carotid. Patent and antegrade vertebrals bilaterally. Ordering Physician: Iva Calhoun Referring Physician: Renato Bonilla Chi Performed By: Susan Pike RVT 10/31/24 0914 Date _ Zelalem Anderson MD CC: FOOD DEMONSTRATORElidia Calhoun; Dr. Renato Bonilla MD ~ Date Dictated: 10/31/24 1248 Date Transcribed: 05/01/25 1714 Care Partner: Signed [facility] Work Phone: Kidney and Bladderon 025 Kidney and Bladder [facility] [address] [place], [place] [address] Kidney and Bladder MR#: [id number] Acct: [id number] Name: AMIE RYAN Rep #: [id number] : 1960 F 64 From: Heri Reed MD PCP: Dr. Renato Bonilla MD Status: REG CLI Study: Kidney and Bladder Date of Exam: 10/31/24 Exam# [id number] Ordering Dr: Renato Bonilla MD ADDENDUM by Dr. Heri Reed MD on 11/04/24 at 1913 As a technical note, note that spectral Doppler imaging was not performed. END OF ADDENDUM Reading Location: [facility] 11/04/241913 Date cc: Dr. Renato Bonilla MD * Signed PROCEDURE: KIDNEY AND BLADDER (USKI), 10/31/2024 REASON FOR EXAM: OVERACTIVE BLADDER TECHNIQUE: Grayscale and color/spectral doppler ultrasound of the kidneys and bladder was performed. COMPARISON: None FINDINGS: Right kidney: 10.8 cm in length. Cyst measures 7 x 5 x 5 mm. No visualized calculus or hydronephrosis. Left kidney: 9.9 cm in length. Cysts up to 15 x 11 x 11 mm superiorly. A 11 x 12 x 11 mm cyst in the mid kidney laterally demonstrates a questionable septation and mural calcifications. No visualized hydronephrosis. Bladder: Estimated volume 271 mL. Borderline mild bladder wall thickening to 4 mm. Other: None. US/Kidney and Bladder IMPRESSION: 1. No hydronephrosis. 2. 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 Consider follow-up in 6-12 months and/or comparison against any available outside imaging. 3. Borderline mild bladder wall thickening. Correlate for cystitis and/or chronic bladder outlet obstruction. 4. Additional description as above. Reading Location: [facility] CC: Dr. Renato Bonilla MD Care Partner: Signed Normal [facility] Absolute lymphocyte countOrd ered By: Renato Bonilla on 10-26-2024 Lymphocytes Auto (Unsp spec) [#/Vol] 1.50 10*3/uL 0.83-4.51 [facility] Absolute neutrophil countOrd ered By: Renato Bonilla on 10-26-2024 Neutrophils (Bld) [#/Vol] 1.1 10*3/uL Low 2.0-7.7 [facility] Anion gap in Serum or Plasma Ordered By: Renato Bonilla on 10-26-2024 Anion gap [Moles/Vol] 11 mmol/L 5-15 [facility] Automated lymphocyte count a s percentage of total leukocytesOrdered By: Renato Bonilla on 10-26-2024 Lymphocytes/100 WBC Auto (Unsp spec) 47.9 % High 19-41 [facility] BUN/creatinine ratioOrdered By: Renato Bonilla on 10-26-2024 Urea nitrogen/Creatinine [Mass ratio] 15.7 mg/mg 10-20 [facility] Basophil percentageOrdered B y: Renato Bonilla on 10-26-2024 Basophils/100 WBC (Bld) 1.3 % High 0-1 [facility] Bilirubin, totalOrdered By: Renato Bonilla on 10-26-2024 Bilirubin [Mass/Vol] 0.34 mg/dL 0.00-1.30 [facility] CBC W/Diff, Automatedon 10-02 Absolute Lymph 1.50 X10 3/uL Normal 0.83-4.51 [facility] Comment on above: Performed By: #### L 500.4050, L100.0100, L501.9520, L506.1001, L500.4100 #### [facility] [address] [place], [place], [id number] Absolute Neut 1.1 X10 3/uL Low 2.0-7.7 [facility] Comment on above: Performed By: #### L 500.4050, L100.0100, L501.9520, L506.1001, L500.4100 #### [facility] [address] [place], [address] Basophils/100 WBC (Bld) 1.3 % High 0-1 [facility] Comment on above: Performed By: #### L 500.4050, L100.0100, L501.9520, L506.1001, L500.4100 #### [facility] [address] [place], [address] Eosinophils/100 WBC (Bld) 2.6 % Normal 0-5 [facility] Comment on above: Performed By: #### L 500.4050, L100.0100, L501.9520, L506.1001, L500.4100 #### [facility] [address] [place], [address] Erythrocyte distribution width (RBC) [Ratio] 11.7 % Normal 11.6-14.6 [facility] Comment on above: Performed By: #### L 500.4050, L100.0100, L501.9520, L506.1001, L500.4100 #### [facility] [address] [place], [address] Hematocrit (Bld) [Volume fraction] 37.7 % Normal 37-47 [facility] Comment on above: Performed By: #### L 500.4050, L100.0100, L501.9520, L506.1001, L500.4100 #### [facility] [address] [place], [address] Hemoglobin (Bld) [Mass/Vol] 12.7 g/dL Normal 12.0-15.0 [facility] Comment on above: Performed By: #### L 500.4050, L100.0100, L501.9520, L506.1001, L500.4100 #### [facility] [address] [place], [address] IG% 0.300 Normal 0.0-0.9 [facility] Comment on above: Result Comment: IG% - Immature Granulocytes (promyelocytes, myelocytes and metamyelocytes) > 1% indicates that a LEFT SHIFT is Present. Performed By: #### L 500.4050, L100.0100, L501.9520, L506.1001, L500.4100 #### [facility] [address] [place], [address] Lymphocytes/100 WBC (Bld) 47.9 % High 19-41 [facility] Comment on above: Performed By: #### L 500.4050, L100.0100, L501.9520, L506.1001, L500.4100 #### [facility] [address] [place], [address] MCH (RBC) [Entitic mass] 32.8 pg High 27.0-32.0 [facility] Comment on above: Performed By: #### L 500.4050, L100.0100, L501.9520, L506.1001, L500.4100 #### [facility] [address] [place], [address] MCHC (RBC) [Mass/Vol] 33.7 g/dL Normal 32-36 [facility] Comment on above: Performed By: #### L 500.4050, L100.0100, L501.9520, L506.1001, L500.4100 #### [facility] [address] [place], [address] MCV (RBC) [Entitic vol] 97.4 fL Normal 81-99 [facility] Comment on above: Performed By: #### L 500.4050, L100.0100, L501.9520, L506.1001, L500.4100 #### [facility] [address] [place], [address] Monocytes/100 WBC (Bld) 11.5 % High 0-10 [facility] Comment on above: Performed By: #### L 500.4050, L100.0100, L501.9520, L506.1001, L500.4100 #### [facility] [address] [place], [address] Neutrophils/100 WBC (Bld) 36.4 % Low 47-70 [facility] Comment on above: Performed By: #### L 500.4050, L100.0100, L501.9520, L506.1001, L500.4100 #### [facility] [address] [place], [address] Nucleated RBC (Bld) [#/Vol] 0 10*3/uL Normal 0-5 [facility] Comment on above: Performed By: #### L 500.4050, L100.0100, L501.9520, L506.1001, L500.4100 #### [facility] [address] [place], [address] Platelet mean volume (Bld) [Entitic vol] 8.9 fL Normal 6.2-12.0 [facility] Comment on above: Performed By: #### L 500.4050, L100.0100, L501.9520, L506.1001, L500.4100 #### [facility] [address] [place], [address] Platelets (Bld) [#/Vol] 245 10*3/uL Normal 150-450 [facility] Comment on above: Performed By: #### L 500.4050, L100.0100, L501.9520, L506.1001, L500.4100 #### [facility] [address] [place], [address] RBC (Bld) [#/Vol] 3.87 10*6/uL Low 4.2-5.4 [facility] Comment on above: Performed By: #### L 500.4050, L100.0100, L501.9520, L506.1001, L500.4100 #### [facility] [address] [place], [address] RDW SD 42.4 fl Normal 35.1-43.9 [facility] Comment on above: Performed By: #### L 500.4050, L100.0100, L501.9520, L506.1001, L500.4100 #### [facility] [address] [place], [address] WBC (Bld) [#/Vol] 3.1 10*3/uL Low 4.4-11.0 [facility] Comment on above: Performed By: #### L 500.4050, L100.0100, L501.9520, L506.1001, L500.4100 #### [facility] [address] [place], [address] Calculated very low density lipoprotein (VLDL) cholesterol measurementOrdered By: Renato Bonilla on 10-26-2024 Calculated very low density lipoprotein (VLDL) cholesterol measurement 13 mg/dL 5-40 [facility] VLDL Cholesterol 13 mg/dL 5-40 [facility] Carbon dioxide, total [Moles /volume] in Central venous bloodOrdered By: Renato Bonilla on 10-26-2024 CO2 [Moles/Vol] 25.7 mmol/L 21.0-32.0 [facility] Chloride assayOrdered By: Lonny Bonilla on 10-26-2024 Chloride [Moles/Vol] 105 mmol/L 98-108 [facility] Comprehensive Metabolic Prof ilon 10-26-2024 Albumin [Mass/Vol] 4.5 g/dL Normal 3.4-4.8 [facility] Comment on above: Performed By: #### L 500.4050, L100.0100, L501.9520, L506.1001, L500.4100 #### [facility] [address] [place], [address] Albumin/Globulin [Mass ratio] 1.7 {ratio} Normal 0.9-2.4 [facility] Comment on above: Performed By: #### L 500.4050, L100.0100, L501.9520, L506.1001, L500.4100 #### [facility] [address] [place] [place], [address] ALK PHOS 86 U/L Normal 35-104 [facility] Comment on above: Performed By: #### L 500.4050, L100.0100, L501.9520, L506.1001, L500.4100 #### [facility] [address] [place], [address] ALT [Catalytic activity/Vol] 13 U/L Normal <=34 [facility] Comment on above: Performed By: #### L 500.4050, L100.0100, L501.9520, L506.1001, L500.4100 #### [facility] [address] [place], [address] AST [Catalytic activity/Vol] 28 U/L Normal <=31 [facility] Comment on above: Performed By: #### L 500.4050, L100.0100, L501.9520, L506.1001, L500.4100 #### [facility] [address] [place], [address] Bilirubin [Mass/Vol] 0.34 mg/dL Normal 0.00-1.30 [facility] Comment on above: Performed By: #### L 500.4050, L100.0100, L501.9520, L506.1001, L500.4100 #### [facility] [address] [place], [address] BUN/CRE 15.7 RATIO Normal 10-20 [facility] Comment on above: Performed By: #### L 500.4050, L100.0100, L501.9520, L506.1001, L500.4100 #### [facility] [address] [place], [address] Calcium [Mass/Vol] 9.5 mg/dL Normal 7.6-11.0 [facility] Comment on above: Performed By: #### L 500.4050, L100.0100, L501.9520, L506.1001, L500.4100 #### [facility] [address] [place], [address] Chloride [Moles/Vol] 105 mmol/L Normal 98-108 [facility] Comment on above: Performed By: #### L 500.4050, L100.0100, L501.9520, L506.1001, L500.4100 #### [facility] [address] [place], [address] CO2 [Moles/Vol] 25.7 mmol/L Normal 21.0-32.0 [facility] Comment on above: Performed By: #### L 500.4050, L100.0100, L501.9520, L506.1001, L500.4100 #### [facility] [address] [place] [place], [address] Creatinine [Mass/Vol] 1.00 mg/dL Normal 0.70-1.20 [facility] Comment on above: Performed By: #### L 500.4050, L100.0100, L501.9520, L506.1001, L500.4100 #### [facility] [address] [place], [address] GAP 11 Normal 5-15 [facility] Comment on above: Performed By: #### L 500.4050, L100.0100, L501.9520, L506.1001, L500.4100 #### [facility] [address] [place], [address] GFR/1.73 sq M.predicted among non-blacks MDRD (S/P/Bld) [Vol rate/Area] 64 mL/min/{1.73_m2} Normal >60 [facility] Comment on above: Result Comment: mL/m in/1.73m2 CKD-EPI Creatinine Equation (2020) Performed By: #### L 500.4050, L100.0100, L501.9520, L506.1001, L500.4100 #### [facility] [address] [place], [address] Globulin (S) [Mass/Vol] 2.7 g/dL Normal 2.2-4.2 [facility] Comment on above: Performed By: #### L 500.4050, L100.0100, L501.9520, L506.1001, L500.4100 #### [facility] [address] [place], [address] Glucose [Mass/Vol] 90 mg/dL Normal 70-99 [facility] Comment on above: Performed By: #### L 500.4050, L100.0100, L501.9520, L506.1001, L500.4100 #### [facility] [address] [place], [address] Potassium [Moles/Vol] 4.2 mmol/L Normal 3.3-5.1 [facility] Comment on above: Performed By: #### L 500.4050, L100.0100, L501.9520, L506.1001, L500.4100 #### [facility] [address] [place], [address] Sodium [Moles/Vol] 142 mmol/L Normal 133-145 [facility] Comment on above: Performed By: #### L 500.4050, L100.0100, L501.9520, L506.1001, L500.4100 #### [facility] [address] [place], [address] T PROT 7.2 g/dL Normal 5.9-8.4 [facility] Comment on above: Performed By: #### L 500.4050, L100.0100, L501.9520, L506.1001, L500.4100 #### [facility] [address] [place], [address] Urea nitrogen [Mass/Vol] 16 mg/dL Normal 4-19 [facility] Comment on above: Performed By: #### L 500.4050, L100.0100, L501.9520, L506.1001, L500.4100 #### [facility] [address] [place], [address] Eosinophil percentageOrdered By: Renato Bonilla on 10-26-2024 Eosinophils/100 WBC (Bld) 2.6 % 0-5 [facility] Erythrocyte distribution wid th (RBC) [Ratio]Ordered By: [facility]10-26-2024 Erythrocyte distribution width (RBC) [Entitic vol] 42.4 fL 35.1-43.9 [facility] Erythrocyte distribution wid th ratioOrdered By: [facility] 10-26-2024 Erythrocyte distribution width (RBC) [Ratio] 11.7 % 11.6-14.6 [facility] Erythrocyte distribution wid th standard deviationOrdered By: [facility] 10-26-2024 Erythrocyte distribution width (RBC) [Ratio] 42.4 fl 35.1-43.9 [facility] GFR/1.73 sq M.predicted atul g non-blacks MDRD (S/P/Bld) [Vol rate/Area]Ordered By: Renato Bonilla on 10-26-2024 Estimated GFR (MDRD) Non-Af Amer 64 >60 [facility] Comment on above: mL/min/1.73m2 CKD-EP I Creatinine Equation (2020) Glomerular filtration rate ( GFR) estimation/1.73 sq m using serum, plasma, or whole bOrdered By: Renato Bonilla on 10-26-2024 GFR/1.73 sq M.predicted among non-blacks MDRD (S/P/Bld) [Vol rate/Area] 64 mL/min/{1.73_m2} >60 [facility] Comment on above: mL/min/1.73m2 CKD-EP I Creatinine Equation (2020) Hematocrit Auto (Bld) [Volum e fraction]Ordered By: Renato Bonilla on 10-26-2024 Hematocrit (Bld) [Volume fraction] 37.7 % 37-47 [facility] Hemoglobin measurementOrdere d By: Renato Bonilla on 10-26-2024 Hemoglobin (Bld) [Mass/Vol] 12.7 g/dL 12.0-15.0 [facility] Immature granulocytes/100 WB C Auto (Bld)Ordered By: Renato Bonilla on 10-26-2024 Immature granulocytes/100 WBC (Bld) 0.300 % 0.0-0.9 [facility] Comment on above: IG% - Immature Granu locytes (promyelocytes, myelocytes and metamyelocytes) > 1% indicates that a LEFT SHIFT is Present. LDL calc ser/plasOrdered By: Renato Bonilla on 10-26-2024 Cholesterol in LDL [Mass/Vol] 55 mg/dL [facility] Comment on above: Zelubigyjo=821-095 m g/dL & Higher Bgxp=333 mg/dL or greater LDL Cholesterol, Calculated 55 mg/dL [facility] Comment on above: Ccbwffgxww=458-921 m g/dL & Higher Gscg=260 mg/dL or greater Laboratory - Chemistry and C hemistry - challengeOrdered By: Renato Bonilla on 10-26-2024 AST [Catalytic activity/Vol] 28 U/L <32 [facility] Lipid Profileon 10-26-2024 CHOL:HDL 1.90 Normal [facility] Comment on above: Performed By: #### L 500.4050, L100.0100, L501.9520, L506.1001, L500.4100 #### [facility] [address] [place], [place], [address] Cholesterol [Mass/Vol] 144 mg/dL Normal <=200 [facility] Comment on above: Result Comment: Chol esterol level, Desirable <200 mg/dL Borderline high cholesterol 200-239 mg/dL High cholesterol >=240 mg/dL Recommendations of the NCEP Adult Treatment Panel for the following risk-cutoff thresholds for the [place] population. Performed By: #### L 500.4050, L100.0100, L501.9520, L506.1001, L500.4100 #### [facility] [address] [place], [address] Cholesterol in HDL [Mass/Vol] 76 mg/dL Normal [facility] Comment on above: Result Comment: Marta onal Cholesterol Education Program (NCEP) guidelines: <40 mg/dL: Low HDL-cholesterol (major risk factor for CHD) >= 60 mg/dL: High HDL-cholesterol (negative risk factor for CHD) HDL-cholesterol is affected by a number of factors, e.g. smoking, exercise, hormones, sex and age. Performed By: #### L 500.4050, L100.0100, L501.9520, L506.1001, L500.4100 #### [facility] [address] [place], [address] Cholesterol in LDL [Mass/Vol] 55 mg/dL Normal [facility] Comment on above: Result Comment: Bord xxjjtz=609-187 mg/dL Higher Mnhs=908 mg/dL or greater Performed By: #### L 500.4050, L100.0100, L501.9520, L506.1001, L500.4100 #### [facility] [address] [place], [address] Cholesterol in VLDL [Mass/Vol] 13 mg/dL Normal 5-40 [facility] Comment on above: Performed By: #### L 500.4050, L100.0100, L501.9520, L506.1001, L500.4100 #### [facility] [address] [place], [address] Triglyceride [Mass/Vol] 65 mg/dL Normal [facility] Comment on above: Result Comment: The drugs N-Acetylcysteine and Metamizole may falsely depress this assay. Normal range: <150 mg/dL Borderline High: 150-199 mg/dL High: 200-499 mg/dL Very High: >500 mg/dL Performed By: #### L 500.4050, L100.0100, L501.9520, L506.1001, L500.4100 #### [facility] [address] [place], [address] Lymphocytes Auto (Unsp spec) [#/Vol]Ordered By: Renato Bonilla on 10-26-2024 Lymphocytes (Bld) [#/Vol] 1.50 10*3/uL 0.83-4.51 [facility] Lymphocytes/100 WBC Auto (Un sp spec)Ordered By: Renato Bonilla on 10-26-2024 Lymphocytes/100 WBC (Bld) 47.9 % High 19-41 [facility] MCV (mean corpuscular volume ) determinationOrdered By: Renato Bonilla on 10-26-2024 MCV (RBC) [Entitic vol] 97.4 fL 81-99 [facility] Mean corpuscular hemoglobin (MCH) determinationOrdered By: Renato Bonilla on 10-26-2024 MCH (RBC) [Entitic mass] 32.8 pg High 27.0-32.0 [facility] Mean corpuscular hemoglobin concentration (MCHC) determinationOrdered By: Renato Bonilla 10-26-2024 MCHC (RBC) [Mass/Vol] 33.7 g/dL 32-36 [facility] Mean platelet volume determi nationOrdered By: Renato Bonilla on 10-26-2024 Platelet mean volume (Bld) [Entitic vol] 8.9 fL 6.2-12.0 [facility] Monocyte percentageOrdered B y: Renato Bonilla on 10-26-2024 Monocytes/100 WBC (Bld) 11.5 % High 0-10 [facility] Neutrophil percentageOrdered By: Renato Bonilla on 10-26-2024 Neutrophils/100 WBC (Bld) 36.4 % Low 47-70 [facility] Nucleated red blood cell per centageOrdered By: Renato Bonilla on 10-26-2024 Nucleated RBC/100 WBC (Bld) [Ratio] 0 % 0-5 [facility] Platelet countOrdered By: Lonny Bonilla on 10-26-2024 Platelets (Bld) [#/Vol] 245 10*3/uL 150-450 [facility] Potassium (Unsp spec) [Mass/ Vol]Ordered By: Renato Bonilla on 10-26-2024 Potassium [Moles/Vol] 4.2 mmol/L 3.3-5.1 [facility] Potassium measurement (mass/ volume)Ordered By: Renato Bonilla on 10-26-2024 Potassium (Unsp spec) [Mass/Vol] 4.2 mmol/L 3.3-5.1 [facility] RBC Auto (Bld) [#/Vol]Ordere d By: Renato Bonilla on 10-26-2024 RBC (Bld) [#/Vol] 3.87 10*6/uL Low 4.2-5.4 [facility] Screening total cholesterol/ high density lipoprotein (HDL) cholesterol ratioOrdered By: Renato Bonilla on 10-26-2024 Cholesterol.total/Starla sterol in HDL [Mass ratio] 1.90 {ratio} [facility] Serum creatinine measurement (mass/volume)Ordered By: Renato Bonilla 10-26-2024 Creatinine [Mass/Vol] 1.00 mg/dL 0.70-1.20 [facility] Serum globulin measurementOr dered By: Renato Bonilla 10-26-2024 Globulin (S) [Mass/Vol] 2.7 g/dL 2.2-4.2 [facility] Serum glucose measurement (m ass/volume)Ordered By: Renato Bonilla 10-26-2024 Glucose [Mass/Vol] 90 mg/dL 70-99 [facility] Serum or plasma alanine maria otransferase (ALT) measurementOrdered By: Renato Bonilla 10-26-2024 ALT [Catalytic activity/Vol] 13 U/L <35 [facility] Serum or plasma albumin tejas urement (mass/volume)Ordered By: Renato Bonilla 10-26-2024 Albumin [Mass/Vol] 4.5 g/dL 3.4-4.8 [facility] Serum or plasma albumin/glob ulin mass ratioOrdered By: Renato Bonilla 10-26-2024 Albumin/Globulin [Mass ratio] 1.7 {ratio} 0.9-2.4 [facility] Serum or plasma alkaline jacki sphatase measurementOrdered By: Renato Bonilla 10-26-2024 ALP [Catalytic activity/Vol] 86 U/L 35-104 [facility] Serum or plasma calcium tejas urement (mass/volume)Ordered By: Renato Bonilla 10-26-2024 Calcium [Mass/Vol] 9.5 mg/dL 7.6-11.0 [facility] Serum or plasma cholesterol in HDL measurement (mass/volume)Ordered By: Renato Bonilla 10-26-2024 Cholesterol in HDL [Mass/Vol] 76 mg/dL >40 [facility] Comment on above: National Cholesterol Education Program (NCEP) guidelines:<40 mg/dL: Low HDL-cholesterol (major risk factor for CHD)>= 60 mg/dL: High HDL-cholesterol (negative risk factor for CHD)HDL-cholesterol is affected by a number of factors, e.g. smoking, exercise, hormones, sex and age. Serum or plasma cholesterol measurement (mass/volume)Ordered By: Renato Bonilla 10-26-2024 Cholesterol [Mass/Vol] 144 mg/dL <201 [facility] Comment on above: Cholesterol level, D esirable <200 mg/dLBorderline high cholesterol 200-239 mg/dLHigh cholesterol >=240 mg/dLRecommendations of the NCEP Adult Treatment Panel for the following risk-cutoff thresholds for the [place] population. Serum or plasma urea nitroge n measurement (mass/volume)Ordered By: Renato Bonilla 10-26-2024 Urea nitrogen [Mass/Vol] 16 mg/dL 4-19 [facility] Sodium levelOrdered By: Renato Bonilla 10-26-2024 Sodium [Moles/Vol] 142 mmol/L 133-145 [facility] TSH DL <= 0.005 mIU/L QnOrde red By: Renato Bonilla 10-26-2024 Thyroid Stimulating Hormone (TSH) 1.520 uIU/mL 0.300-4.200 [facility] TSH Qn 1.520 uIU/mL 0.300-4.200 [facility] Thyroid Stim Hormone (TSH)on 10-26-2024 TSH 1.520 uIU/mL Normal 0.300-4.200 [facility] Comment on above: Performed By: #### L 500.4050, L100.0100, L501.9520, L506.1001, L500.4100 #### [facility] [place], [address] Total proteinOrdered By: Renato Bonilla on 10-26-2024 Protein [Mass/Vol] 7.2 g/dL 5.9-8.4 [facility] Triglycerides measurementOrd ered By: Renato Bonilla on 10-26-2024 Triglyceride [Mass/Vol] 65 mg/dL <199 [facility] Comment on above: The drugs N-Acetylcy steine and Metamizole may falsely depress this assay. Normal range: <150 mg/dLBorderline High: 150-199 mg/dLHigh: 200-499 mg/dLVery High: >500 mg/dL Vitamin D, 25-hydroxyOrdered By: Renato Bonilla on 10-26-2024 Vitamin D 25-Hydroxy 34.9 ng/mL 30-100 [facility] Comment on above: Vitamin D StatusDefi ciency: <20 ng/mL (50nmol/L)Insufficiency: 20-30 ng/mL (50-75 nmol/L)Sufficiency: 30-100 ng/mL (75-250 nmol/L)Toxicity: >100 ng/mL (>250 nmol/L) Vitamin D,25 Hydroxyon 10-26 Vitamin D 25-OH 34.9 ng/mL Normal 30-100 [facility] Comment on above: Result Comment: Kaylee min D Status Deficiency: <20 ng/mL (50nmol/L) Insufficiency: 20-30 ng/mL (50-75 nmol/L) Sufficiency: 30-100 ng/mL (75-250 nmol/L) Toxicity: >100 ng/mL (>250 nmol/L) Performed By: #### L 500.4050, L100.0100, L501.9520, L506.1001, L500.4100 #### [facility] [address] [place], [address] White blood cell (WBC) count Ordered By: Renato Bonilla on 10-26-2024 WBC (Bld) [#/Vol] 3.1 10*3/uL Low 4.4-11.0 [facility] Cardiology Visit Reporton Cardiology Visit Report [facility] [address] [place] [address] OFFICE VISIT Date of Service: 10/21/24 MR#: [id number] Acct: [id number] Name: AMIE RYAN Rep #: [id number] : 1960 Provider: JENNIFER morales Age/Sex: 64/F [place] [facility] Status: Signed HPI HPI History of Present Illness Details: This is a 64-year-old female who presents today for a cardiovascular follow-up visit. She has a history of presyncopal episodes, SVT???she was referred to electrophysiology at [facility] but they canceled her appointment for some reason. She has a history of coronary artery disease with stent placement in June 2023, dyslipidemia, pseudoaneurysm of the aorta, and hypertension. She states she presented to in [place] last week for near syncopal episodes. Will obtain those records. From a cardiac standpoint, the patient is doing well. She denies any palpitations, chest pain, pressure or heaviness. She denies SOB, Orthopnea, and PND. She does not have bleeding issues; no blood in urine, stool, or nosebleeds. She does acknowledge a decrease in energy level. She denies myalgias, or claudication. She does not have edema, or sudden weight gain. She does acknowledge dizziness/lightheadednes s. She states that she did have near syncopal episodes that she went to the ER for. Intake Vital Signs 02/22/24 14:49 10/21/24 08:19 10/21/24 15:33 Height 5 ft 4 in 5 ft 4 in 5 ft 4 in Weight: 136 lb BMI 23.3 BP 122/72 H Blood Pressure Location Lt brachial Position Sitting Respiration 18 Pulse 55 L Pulse Source Monitor Pulse Oximetry (%) 100 Intake Visit Reasons: 6 M FU [employer] Supervisor Required: No Is patient in pain?: No Allergies No Known Allergies Allergy (Verified 10/21/24 15:52) Medications ???Medication ???Instructions ???Recorded ???Confirmed ???Type magnesium oxide 400 mg PO DAILY 11/12/21 10/21/24 History cyclobenzaprine 10 mg tablet 10 mg PO DAILY PRN muscle spasm 10/21/24 History atorvastatin 40 mg tablet 40 mg PO QHS #30 tabs 05/17/23 Rx cholecalciferol (vitamin D3) 25 25 mcg PO DAILY 05/31/23 10/21/24 History mcg (1,000 unit) tablet (Vitamin D3) aspirin 81 mg tablet,delayed 81 mg PO DAILY 06/12/23 10/21/24 H istory release (Adult Aspirin Regimen) calcium carbonate (Calcium 600) 600 mg PO DAILY 02/22/24 10/21/24 History ferrous sulfate 325 mg (65 mg 325 mg PO Q OTHER DAY 02/22/24 History iron) tablet (FeroSul) losartan 50 mg tablet 50 mg PO DAILY #90 tabs 06/28/24 0 10/21/24 Rx amlodipine 5 mg tablet 5 mg PO DAILY #30 tabs 10/21/24 Rx Have you fallen in the past year?: No Nurse's Note: went to [facility] for observation [facility] Medical History Coronary artery disease Raynauds phenomenon Dyslipidemia Palpitations Hypokalemia Abnormal findings diagnostic imaging of heart and coronary circulation (06/07/23) Atherosclerotic heart disease of [place] coronary artery without angina pectoris (06/07/23) 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) Anxiety Shortness of breath on exertion History of echocardiogram History of stress test Cardiology follow-up encounter History of irregular heartbeat Guaiac positive stools Abnormal ECG Anemia Blood in stool Pseudoaneurysm of aorta Fatigue Syncope Vitamin D deficiency Major depressive disorder, recurrent episode, in full remission Lightheadedness Numbness and tingling in both hands Bradycardia Wears contact lenses Post-menopausal Excessive bleeding Easy bruising Restless legs Back pain History of IBS Former smoker Encounter for screening for malignant neoplasm of colon Muscle spasm Hyperlipidemia Hypertension Surgical History Stented coronary artery (06/15/23) Hx of hysterectomy Hx of colonoscopy Family History Mother Hypertension Cancer Arthritis CVA (cerebral vascular accident) Stomach ulcer Father Cancer bladder Grandmother Cancer Uncle Prostate carcinoma Social History household members: spouse Smoking Status: Former smoker alcohol intake: former year quit: 1990 substance use type: does not use caffeine: Yes Type: carbonated beverages Number of servings: 1 ROS Const Const: Positive for fatigue and headache(s); Negative for weakness or frequent falls Eyes Eyes: Negative for blurry vision ENT ENT: Positive for headache(s) and dizziness; Negative for Nosebleed/epistaxis Cardio Chest Pain: No Palpitations: No Edema: None Muscle aches with walking: None Resp Respira (more content not included)... Normal [facility] Basic metabolic 2000 panelon 10-18-2024 Anion gap [Moles/Vol] 10 mmol/L 10 - 2 0 mmol/L [facility] Calcium [Mass/Vol] 8.8 mg/dL 8.6 - 10. 3 mg/dL [facility] Comment on above: Confirmed by repeat analysis Chloride [Moles/Vol] 108 mmol/L High 98 - 10 7 mmol/L [facility] CO2 [Moles/Vol] 26 mmol/L 21 - 32 mmol/L [facility] Creatinine [Mass/Vol] 0.95 mg/dL 0.50 - 1.05 mg/dL [facility] GFR/1.73 sq M.predicted among non-blacks MDRD (S/P/Bld) [Vol rate/Area] 68 mL/min/{1.73_m2} - PINF [facility] Comment on above: Calculations of columba mated GFR are performed using the 2020 CKD-EPI Study Refit equation without the race variable for the IDMS-Traceable creatinine methods. https://jasn.asnjournals.org/content/early/ASN 927670 Glucose [Mass/Vol] 101 mg/dL High 74 - 99 mg/dL [facility] Interpretation and review of laboratory results Abnormal [facility] Potassium [Moles/Vol] 4.3 mmol/L 3.5 - 5.3 mmol/L [facility] Sodium [Moles/Vol] 140 mmol/L 136 - 145 mmol/L [facility] Urea nitrogen [Mass/Vol] 18 mg/dL 6 - 23 mg/dL [facility] Anion gap [Moles/Vol] 10 mmol/L Normal 10-20 [facility] Comment on above: Performed By: #### 1 4979-9 #### PETER MORAN ([id number]) [facility] ([facility]) [address] [place] [address] Calcium [Mass/Vol] 8.8 mg/dL Normal 8.6-10.3 [facility] Comment on above: Result Comment: Conf irmed by repeat analysis Performed By: #### 1 4979-9 #### PETER MORAN ([id number]) [facility] ([facility]) [address] [place] [id number] Chloride [Moles/Vol] 108 mmol/L High 98-107 [facility] Comment on above: Performed By: #### 1 4979-9 #### PETER MORAN ([id number]) [facility] ([facility]) [address] [place] [id number] CO2 [Moles/Vol] 26 mmol/L Normal 21-32 [facility] Comment on above: Performed By: #### 1 4979-9 #### PETER MORAN ([id number]) [facility] ([facility]) [address] [place] [address] 40986 Creatinine [Mass/Vol] 0.95 mg/dL Normal 0.50-1.05 [facility] Comment on above: Performed By: #### 1 4979-9 #### PETER MORAN ([id number]) [facility] ([facility]) [address] [place] [address] 96787 Glomerular filtration rate/1.73 sq M.predicted 68 mL/min/1.73m*2 Normal >60 [facility] Comment on above: Result Comment: Calc ulations of estimated GFR are performed using the 2020 CKD-EPI Study Refit equation without the race variable for the IDMS-Traceable creatinine methods. https://jasn.asnjournals.org/content/early//ASN.2020 135518 Performed By: #### 1 4979-9 #### PETER MORAN ([id number]) [facility] ([facility]) [address] [place] [address] 86243 Glucose [Mass/Vol] 101 mg/dL High 74-99 [facility] Comment on above: Performed By: #### 1 4979-9 #### PETER MORAN ([id number]) [facility] ([facility]) [address] [place] [address] 41027 Potassium [Moles/Vol] 4.3 mmol/L Normal 3.5-5.3 [facility] Comment on above: Performed By: #### 1 4979-9 #### PETER MORAN ([id number]) [facility] ([facility]) [address] [place] [address] 64805 Sodium [Moles/Vol] 140 mmol/L Normal 136-145 [facility] Comment on above: Performed By: #### 1 4979-9 #### EPTER MORAN ([id number]) [facility] ([facility]) [address] [place] [address] 73979 Urea nitrogen [Mass/Vol] 18 mg/dL Normal 6-23 [facility] Comment on above: Performed By: #### 1 4979-9 #### PETER MORAN ([id number]) [facility] ([facility]) [address] [place] [address] 13855 CBC panel Auto (Bld)on 10-18 Erythrocyte distribution width (RBC) [Ratio] 11.6 % 11.5 - 14.5 % [facility] Hematocrit (Bld) [Volume fraction] 38.3 % 36.0 - 46.0 % [facility] Hemoglobin (Bld) [Mass/Vol] 12.5 g/dL 12.0 - 16.0 g/dL [facility] Interpretation and review of laboratory results Abnormal [facility] MCH (RBC) [Entitic mass] 32.4 pg 26.0 - 34.0 pg [facility] MCHC (RBC) [Mass/Vol] 32.6 g/dL 32.0 - 36.0 g/dL [facility] MCV (RBC) [Entitic vol] 99 fL 80 - 100 fL [facility] Nucleated RBC/100 WBC (Bld) [Ratio] 0 % [facility] Platelets (Bld) [#/Vol] 211 10*3/uL [facility] RBC (Bld) [#/Vol] 3.86 10*6/uL [facility] WBC (Bld) [#/Vol] 3.8 10*3/uL [facility] Erythrocyte distribution width (RBC) [Ratio] 11.6 % Normal 11.5-14.5 [facility] Comment on above: Performed By: #### 1 4979-9 #### PETER MORAN ([id number]) [facility] ([facility]) [address] [place] [address] 48655 Hematocrit (Bld) [Volume fraction] 38.3 % Normal 36.0-46.0 [facility] Comment on above: Performed By: #### 1 4979-9 #### PETER MORAN ([id number]) [facility] ([facility]) [address] [place] [address] 40755 Hemoglobin (Bld) [Mass/Vol] 12.5 g/dL Normal 12.0-16.0 [facility] Comment on above: Performed By: #### 1 4979-9 #### PETER MORAN ([id number]) [facility] ([facility]) [address] [place] [address] 84461 MCH (RBC) [Entitic mass] 32.4 pg Normal 26.0-34.0 [facility] Comment on above: Performed By: #### 1 4979-9 #### PETER MORAN ([id number]) [facility] ([facility]) [address] [place] [address] 91916 MCHC (RBC) [Mass/Vol] 32.6 g/dL Normal 32.0-36.0 [facility] Comment on above: Performed By: #### 1 4979-9 #### PETER MORAN ([id number]) [facility] ([facility]) [address] [place], [place] [id number] MCV (RBC) [Entitic vol] 99 fL Normal 80-100 [facility] Comment on above: Performed By: #### 1 4979-9 #### PETER MORAN ([id number]) [facility] ([facility]) [address] [place] [address] Nucleated RBC/100 WBC (Bld) [Ratio] 0.0 /100 WBCs Normal 0.0-0.0 [facility] Comment on above: Performed By: #### 1 4979-9 #### PETER MORAN ([id number]) [facility] ([facility]) [address] [place] [address] 39885 Platelets (Bld) [#/Vol] 211 x10*3/uL Normal 150-450 [facility] Comment on above: Performed By: #### 1 4979-9 #### PETER MORAN ([id number]) [facility] ([facility]) [address] [place] [address] 43445 RBC (Bld) [#/Vol] 3.86 x10*6/uL Low 4.00-5.20 [facility] Comment on above: Performed By: #### 1 4979-9 #### PETER MORAN ([id number]) [facility] ([facility]) [address] [place] [address] 13436 WBC (Bld) [#/Vol] 3.8 x10*3/uL Low 4.4-11.3 [facility] Comment on above: Performed By: #### 1 4979-9 #### PETER MORAN ([id number]) [facility] ([facility]) [address] [place] [address] 17379 Extra Urine [place] Tubeon 04- Extra Tube Hold for add-ons. [facility] Comment on above: Auto resulted. [facility] TRANSTHORACIC ECHO (TTE) COM PLETEon 10-18-2024 TRANSTHORACIC ECHO (TTE) COMPLETE [place] [id number] [id number], TRANSTHORACIC ECHOCARDIOGRAM REPORT Patient Name: AMIE Jimenez LENCHO Joy Physician: [id number] Damir Cuevas MD Study Date: 10/18/2024 Ordering Provider: [id number] EASTON GARCÍA MRN/PID: [id number] Fellow: Nurse: Yuki Leyva RN Date of /Age: 3 1960 / 64 years Digital Tech: Ovi Wang RDCS Gender Assigned at F Additional Staff: : Height: 160.02 cm Admit Date: Weight: 63.50 kg Admission Status: Inpatient - Routine BSA / BMI: 1.66 m2 / 24.80 Department Location: [facility] 3 [place] kg/m2 Blood Pressure: 119 /72 mmHg Study Type: TRANSTHORACIC ECHO (TTE) COMPLETE Diagnosis/ICD: Syncope-R55 CPT Codes: Echo Complete w Full Doppler-85572 Study Detail: The following Echo studies were performed: 2D, M-Mode, color flow and Doppler. Agitated saline used as a contrast agent for intraseptal flow evaluation. PHYSICIAN INTERPRETATION: Left Ventricle: The left ventricular systolic function is normal, with a visually estimated ejection fraction of 60-65%. There are no regional wall motion abnormalities. The left ventricular cavity size is normal. There is mild increased septal and normal posterior left ventricular wall thickness. Spectral Doppler shows a normal pattern of left ventricular diastolic filling. Left Atrium: The left atrial size is normal. Right Ventricle: The right ventricle is normal in size. There is normal right ventricular global systolic function. Right Atrium: The right atrial size is normal. Aortic Valve: The aortic valve is trileaflet. There are increased aortic valve velocities due to increased flow/dynamic ejection. The aortic valve dimensionless index is 0.59. There is mild aortic valve regurgitation. The peak instantaneous gradient of the aortic valve is 22 mmHg. The mean gradient of the aortic valve is 11 mmHg. Mitral Valve: The mitral valve is mildly thickened. There is trace mitral valve regurgitation. Tricuspid Valve: The tricuspid valve is structurally normal. There is mild to moderate tricuspid regurgitation. Pulmonic Valve: The pulmonic valve is structurally normal. There is physiologic pulmonic valve regurgitation. Pericardium: Trivial pericardial effusion. Aorta: The aortic root is normal. In comparison to the previous echocardiogram(s): There are no prior studies on this patient for comparison purposes. CONCLUSIONS: 1. The left ventricular systolic function is normal, with a visually estimated ejection fraction of 60-65%. 2. There is normal right ventricular global systolic function. 3. Mild to moderate tricuspid regurgitation. 4. Mild eccentric aortic valve regurgitation. QUANTITATIVE DATA SUMMARY: 2D MEASUREMENTS: Normal Ranges: Ao Root d: 3.80 cm (2.0-3.7cm) LAs: 2.90 cm (2.7-4.0cm) IVSd: 1.02 cm (0.6-1.1cm) LVPWd: 0.87 cm (0.6-1.1cm) LVIDd: 4.61 cm (3.9-5.9cm) LVIDs: 2.63 cm LV Mass Index: 88.7 g/m2 LVEDV Index: 43.29 ml/m2 LV % FS 43.0 % LEFT ATRIUM: Normal Ranges: LA Vol A4C: 12.7 ml (22+/-6mL/m2) LA Vol A2C: 14.1 ml LA Vol BP: 13.6 ml LA Vol Index A4C: 7.7ml/m2 LA Vol Index A2C: 8.5 ml/m2 LA Vol Index BP: 8.2 ml/m2 LA Area A4C: 7.5 cm2 LA Area A2C: 8.0 cm2 LA Major Strathmore A4C: 3.7 cm LA Major Strathmore A2C: 3.8 cm LA Volume Index: 6.6 ml/m2 LA Vol A4C: 11.0 ml LA Vol A2C: 14.1 ml LA Vol Index BSA: 7.6 ml/m2 AORTA MEASUREMENTS: Normal Ranges: Asc Ao, d: 3.35 cm (2.1-3.4cm) LV SYSTOLIC FUNCTION: Normal Ranges: EF-A4C View: 55 % (>=55%) EF-A2C View: 64 % EF-Biplane: 60 % EF-Visual: 63 % LV EF Reported: 63 % AORTIC VALVE: Normal Ranges: AoV Vmax: 2.32 m/s (<=1.7m/s) AoV Peak P.5 mmHg (<20mmHg) AoV Mean P.0 mmHg (1.7-11.5mmHg) LVOT Max Grace: 1.38 m/s (<=1.1m/s) AoV VTI: 45.50 cm (18-25cm) LVOT VTI: 26.80 cm LVOT Diameter: 2.00 cm (1.8-2.4cm) AoV Area, VTI: 1.85 cm2 (2.5-5.5cm2) AoV Area,Vmax: 1.87 cm2 (2.5-4.5cm2) AoV Dimensionless Index: 0.59 AORTIC INSUFFICIENCY: AI Vmax: 4.97 m/s AI Half-time: 741 msec AI Decel Rate: 207.00 cm/s2 RIGHT VENTRICLE: RV Basal 3.21 cm RV Mid 1.95 cm RV Major 6.8 cm TRICUSPID VALVE/RVSP: Normal Ranges: Peak TR Velocity: 2.40 m/s RV Syst Pressure: 26 mmHg (< 30mmHg) [id number] Damir Cuevas MD Electronically signed on 10/18/2024 at 12:50:12 PM Final Normal [facility] Tropinin I.cardiac panel Hig h sensitivity methodon 10-18-2024 Interpretation and review of laboratory results Normal [facility] Less than 99th percentile of normal range cutoff- Female and children under 18 years old <14 ng/L; Male <21 ng/L: Negative Repeat testing should be performed if clinically indicated. Female and children under 18 years old 14-50 ng/L; Male 21-50 ng/L: Consistent with possible cardiac damage and possible increased clinical risk. Serial measurements may help to assess extent of myocardial damage. >50 ng/L: Consistent with cardiac damage, increased clinical risk and myocardial infarction. Serial measurements may help assess extent of myocardial damage. NOTE: Children less than 1 year old may have higher baseline troponin levels and results should be interpreted in conjunction with the overall clinical context. NOTE: Troponin I testing is performed using a different testing methodology at [facility] than at other [facility] Direct result comparisons should only be made within the same method. [facility] Troponin I, High Sensitivity on 10-18-2024 Tropinin I.cardiac panel High sensitivity method 6 ng/L 0 - 13 ng/L [facility] Troponin I.cardiac panelon 0 10-18-2024 Tropinin I.cardiac panel High sensitivity method 6 ng/L Normal 0-13 [facility] Comment on above: Order Comment: The A PTT is no longer used for monitoring Unfractionated Heparin Therapy. For monitoring Heparin Therapy, use the Heparin Assay. Performed By: #### 1 4979-9 #### GREEN DEAN ([id number]) [facility] ([facility]) [address] [place] [address] US Heart TransthoracicOrdere d By: Damir Cuevas on 10-18-2024 Aortic Valve Area by Continuity of Peak Velocity 1.87 cm2 [facility] Work Phone: [phone] Aortic Valve Area by Continuity of VTI 1.85 cm2 [facility] Work Phone: [phone] AV mn grad 11 mmHg [facility] Work Phone: [phone] AV pk grad 22 mmHg [facility] Work Phone: [phone] AV pk grace 2.32 m/s [facility] Work Phone: [phone] LA vol index A/L 8.2 ml/m2 [facility] Work Phone: [phone] LV A4C EF 55.2 [facility] Work Phone: [phone] LV Biplane EF 60 % [facility] Work Phone: [phone] LV EF 63 % [facility] Work Phone: [phone] LVIDd 4.61 cm [facility] Work Phone: [phone] LVOT diam 2 cm [facility] Work Phone: [phone] RVSP 26 mmHg [facility] Work Phone: [phone] [facility] Work Phone: [phone] [place] [address] ext-2528, TRANSTHORACIC ECHOCARDIOGRAM REPORT Patient Name: AMIE RYAN Rufino Physician: [id number] Damir Cuevas MD Study Date: 10/18/2024 Ordering Provider: [id number] EASTON GARCÍA MRN/PID: [id number] Fellow: Nurse: Yuki Leyva RN Date of /Age: 3 1960 / 64 years Digital Tech: Ovi Wang RDCS Gender Assigned at F Additional Staff: : Height: 160.02 cm Admit Date: Weight: 63.50 kg Admission Status: Inpatient - Routine BSA / BMI: 1.66 m2 / 24.80 Department Location: [address] kg/m2 Blood Pressure: 119 /72 mmHg Study Type: TRANSTHORACIC ECHO (TTE) COMPLETE Diagnosis/ICD: Syncope-R55 CPT Codes: Echo Complete w Full Doppler-50369 Study Detail: The following Echo studies were performed: 2D, M-Mode, color flow and Doppler. Agitated saline used as a contrast agent for intraseptal flow evaluation. PHYSICIAN INTERPRETATION: Left Ventricle: The left ventricular systolic function is normal, with a visually estimated ejection fraction of 60-65%. There are no regional wall motion abnormalities. The left ventricular cavity size is normal. There is mild increased septal and normal posterior left ventricular wall thickness. Spectral Doppler shows a normal pattern of left ventricular diastolic filling. Left Atrium: The left atrial size is normal. Right Ventricle: The right ventricle is normal in size. There is normal right ventricular global systolic function. Right Atrium: The right atrial size is normal. Aortic Valve: The aortic valve is trileaflet. There are increased aortic valve velocities due to increased flow/dynamic ejection. The aortic valve dimensionless index is 0.59. There is mild aortic valve regurgitation. The peak instantaneous gradient of the aortic valve is 22 mmHg. The mean gradient of the aortic valve is 11 mmHg. Mitral Valve: The mitral valve is mildly thickened. There is trace mitral valve regurgitation. Tricuspid Valve: The tricuspid valve is structurally normal. There is mild to moderate tricuspid regurgitation. Pulmonic Valve: The pulmonic valve is structurally normal. There is physiologic pulmonic valve regurgitation. Pericardium: Trivial pericardial effusion. Aorta: The aortic root is normal. In comparison to the previous echocardiogram(s): There are no prior studies on this patient for comparison purposes. CONCLUSIONS: 1. The left ventricular systolic function is normal, with a visually estimated ejection fraction of 60-65%. 2. There is normal right ventricular global systolic function. 3. Mild to moderate tricuspid regurgitation. 4. Mild eccentric aortic valve regurgitation. QUANTITATIVE DATA SUMMARY: 2D MEASUREMENTS: Normal Ranges: Ao Root d: 3.80 cm (2.0-3.7cm) LAs: 2.90 cm (2.7-4.0cm) IVSd: 1.02 cm (0.6-1.1cm) LVPWd: 0.87 cm (0.6-1.1cm) LVIDd: 4.61 cm (3.9-5.9cm) LVIDs: 2.63 cm LV Mass Index: 88.7 g/m2 LVEDV Index: 43.29 ml/m2 LV % FS 43.0 % LEFT ATRIUM: Normal Ranges: LA Vol A4C: 12.7 ml (22+/-6mL/m2) LA Vol A2C: 14.1 ml LA Vol BP: 13.6 ml LA Vol Index A4C: 7.7ml/m2 LA Vol Index A2C: 8.5 ml/m2 LA Vol Index BP: 8.2 ml/m2 LA Area A4C: 7.5 cm2 LA Area A2C: 8.0 cm2 LA Major Strathmore A4C: 3.7 cm LA Major Strathmore A2C: 3.8 cm LA Volume Index: 6.6 ml/m2 LA Vol A4C: 11.0 ml LA Vol A2C: 14.1 ml LA Vol Index BSA: 7.6 ml/m2 AORTA MEASUREMENTS: Normal Ranges: Asc Ao, d: 3.35 cm (2.1-3.4cm) LV SYSTOLIC FUNCTION: Normal Ranges: EF-A4C View: 55 % (>=55%) EF-A2C View: 64 % EF-Biplane: 60 % EF-Visual: 63 % LV EF Reported: 63 % AORTIC VALVE: Normal Ranges: AoV Vmax: 2.32 m/s (<=1.7m/s) AoV Peak P.5 mmHg (<20mmHg) AoV Mean P.0 mmHg (1.7-11.5mmHg) LVOT Max Grace: 1.38 m/s (<=1.1m/s) AoV VTI: 45.50 cm (18-25cm) LVOT VTI: 26.80 cm LVOT Diameter: 2.00 cm (1.8-2.4cm) AoV Area, VTI: 1.85 cm2 (2.5-5.5cm2) AoV Area,Vmax: 1.87 cm2 (2.5-4.5cm2) AoV Dimensionless Index: 0.59 AORTIC INSUFFICIENCY: AI Vmax: 4.97 m/s AI Half-time: 741 msec AI Decel Rate: 207.00 cm/s2 (more content not included)... Damir Vera MD PhD - 10/18/2024 [place] [address] ext-2528, TRANSTHORACIC ECHOCARDIOGRAM REPORT Patient Name: AMIE Joy Physician: [id number] Damir Cuevas MD Study Date: 10/18/2024 Ordering Provider: [id number] EASTON GARCÍA MRN/PID: [id number] Fellow: Nurse: Yuki Leyva RN Date of /Age: 3 1960 / 64 years Digital Tech: Ovi Wang RDCS Gender Assigned at F Additional Staff: : Height: 160.02 cm Admit Date: Weight: 63.50 kg Admission Status: Inpatient - Routine BSA / BMI: 1.66 m2 / 24.80 Department Location: [address] kg/m2 Blood Pressure: 119 /72 mmHg Study Type: TRANSTHORACIC ECHO (TTE) COMPLETE Diagnosis/ICD: Syncope-R55 CPT Codes: Echo Complete w Full Doppler-70262 Study Detail: The following Echo studies were performed: 2D, M-Mode, color flow and Doppler. Agitated saline used as a contrast agent for intraseptal flow evaluation. PHYSICIAN INTERPRETATION: Left Ventricle: The left ventricular systolic function is normal, with a visually estimated ejection fraction of 60-65%. There are no regional wall motion abnormalities. The left ventricular cavity size is normal. There is mild increased septal and normal posterior left ventricular wall thickness. Spectral Doppler shows a normal pattern of left ventricular diastolic filling. Left Atrium: The left atrial size is normal. Right Ventricle: The right ventricle is normal in size. There is normal right ventricular global systolic function. Right Atrium: The right atrial size is normal. Aortic Valve: The aortic valve is trileaflet. There are increased aortic valve velocities due to increased flow/dynamic ejection. The aortic valve dimensionless index is 0.59. There is mild aortic valve regurgitation. The peak instantaneous gradient of the aortic valve is 22 mmHg. The mean gradient of the aortic valve is 11 mmHg. Mitral Valve: The mitral valve is mildly thickened. There is trace mitral valve regurgitation. Tricuspid Valve: The tricuspid valve is structurally normal. There is mild to moderate tricuspid regurgitation. Pulmonic Valve: The pulmonic valve is structurally normal. There is physiologic pulmonic valve regurgitation. Pericardium: Trivial pericardial effusion. Aorta: The aortic root is normal. In comparison to the previous echocardiogram(s): There are no prior studies on this patient for comparison purposes. CONCLUSIONS: 1. The left ventricular systolic function is normal, with a visually estimated ejection fraction of 60-65%. 2. There is normal right ventricular global systolic function. 3. Mild to moderate tricuspid regurgitation. 4. Mild eccentric aortic valve regurgitation. QUANTITATIVE DATA SUMMARY: 2D MEASUREMENTS: Normal Ranges: Ao Root d: 3.80 cm (2.0-3.7cm) LAs: 2.90 cm (2.7-4.0cm) IVSd: 1.02 cm (0.6-1.1cm) LVPWd: 0.87 cm (0.6-1.1cm) LVIDd: 4.61 cm (3.9-5.9cm) LVIDs: 2.63 cm LV Mass Index: 88.7 g/m2 LVEDV Index: 43.29 ml/m2 LV % FS 43.0 % LEFT ATRIUM: Normal Ranges: LA Vol A4C: 12.7 ml (22+/-6mL/m2) LA Vol A2C: 14.1 ml LA Vol BP: 13.6 ml LA Vol Index A4C: 7.7ml/m2 LA Vol Index A2C: 8.5 ml/m2 LA Vol Index BP: 8.2 ml/m2 LA Area A4C: 7.5 cm2 LA Area A2C: 8.0 cm2 LA Major Strathmore A4C: 3.7 cm LA Major Strathmore A2C: 3.8 cm LA Volume Index: 6.6 ml/m2 LA Vol A4C: 11.0 ml LA Vol A2C: 14.1 ml LA Vol Index BSA: 7.6 ml/m2 AORTA MEASUREMENTS: Normal Ranges: Asc Ao, d: 3.35 cm (2.1-3.4cm) LV SYSTOLIC FUNCTION: Normal Ranges: EF-A4C View: 55 % (>=55%) EF-A2C View: 64 % EF-Biplane: 60 % EF-Visual: 63 % LV EF Reported: 63 % AORTIC VALVE: Normal Ranges: AoV Vmax: 2.32 m/s (<=1.7m/s) AoV Peak P.5 mmHg (<20mmHg) AoV Mean P.0 mmHg (1.7-11.5mmHg) LVOT Max Grace: 1.38 m/s (<=1.1m/s) AoV VTI: 45.50 cm (18-25cm) LVOT VTI: 26.80 cm LVOT Diameter: 2.00 cm (1.8-2.4cm) AoV Area, VTI: 1.85 cm2 (2.5-5.5cm2) AoV Area,Vmax: 1.87 cm2 (2.5-4.5cm2) AoV Dimensionless Index: 0.59 AORTIC INSUFFICIENCY: AI Vmax: 4.97 m/s AI Half-time: 741 msec AI Decel Rate: 207.00 cm/s2 RIGHT VENTRICLE: RV Basal 3.21 cm RV Mid 1.95 cm RV Major 6.8 cm TRICUSPID VALVE/RVSP: Normal Ranges: Peak TR Velocity: 2.40 m/s RV Syst Pressure: 26 mmHg (< 30mmHg) [id number] Damir Cuevas MD Electronically signed on 10/18/2024 at 12:50:12 PM Final [facility] Work Phone: Basic metabolic 2000 panelon 10-17-2024 Anion gap [Moles/Vol] 12 mmol/L 10 - 2 0 mmol/L [facility] Calcium [Mass/Vol] 9.7 mg/dL 8.6 - 10. 3 mg/dL [facility] Chloride [Moles/Vol] 104 mmol/L 98 - 10 7 mmol/L [facility] CO2 [Moles/Vol] 25 mmol/L 21 - 32 mmol/L [facility] Creatinine [Mass/Vol] 1.28 mg/dL High 0.50 - 1.05 mg/dL [facility] GFR/1.73 sq M.predicted among non-blacks MDRD (S/P/Bld) [Vol rate/Area] 47 mL/min/{1.73_m2} Low - PINF [facility] Comment on above: Calculations of columba mated GFR are performed using the 2020 CKD-EPI Study Refit equation without the race variable for the IDMS-Traceable creatinine methods. https://jasn.asnjournals.org/content//ASN.2020 102942 Glucose [Mass/Vol] 113 mg/dL High 74 - 99 mg/dL [facility] Interpretation and review of laboratory results Abnormal [facility] Potassium [Moles/Vol] 4.3 mmol/L 3.5 - 5.3 mmol/L [facility] Sodium [Moles/Vol] 137 mmol/L 136 - 145 mmol/L [facility] Urea nitrogen [Mass/Vol] 26 mg/dL High 6 - 23 mg/dL [facility] Anion gap [Moles/Vol] 12 mmol/L Normal 10-20 [facility] Comment on above: Performed By: #### 2 4321-2 #### PETER MORAN ([id number]) [facility] ([facility]) [facility] [place] [address] Calcium [Mass/Vol] 9.7 mg/dL Normal 8.6-10.3 [facility] Comment on above: Performed By: #### 2 4321-2 #### PETER MORAN ([id number]) [facility] ([facility]) [facility] [place] [address] Chloride [Moles/Vol] 104 mmol/L Normal 98-107 [facility] Comment on above: Performed By: #### 2 4321-2 #### PETER MORAN ([id number]) [facility] ([facility]) [facility] [place] [address] CO2 [Moles/Vol] 25 mmol/L Normal 21-32 [facility] Comment on above: Performed By: #### 2 4321-2 #### PETER MORAN ([id number]) [facility] ([facility]) [facility] [place] [address] Creatinine [Mass/Vol] 1.28 mg/dL High 0.50-1.05 [facility] Comment on above: Performed By: #### 2 4321-2 #### PETER MORAN ([id number]) [facility] ([facility]) [address] [place] [address] 31496 Glomerular filtration rate/1.73 sq M.predicted 47 mL/min/1.73m*2 Low >60 [facility] Comment on above: Result Comment: Calc ulations of estimated GFR are performed using the 2020 CKD-EPI Study Refit equation without the race variable for the IDMS-Traceable creatinine methods. https://jasn.asnjournals.org/content/early//ASN.2020 526579 Performed By: #### 2 432-2 #### PETER MORAN ([id number]) [facility] ([facility]) [address] [place] [address] 21967 Glucose [Mass/Vol] 113 mg/dL High 74-99 [facility] Comment on above: Performed By: #### 2 4321-2 #### PETER MORAN ([id number]) [facility] ([facility]) [address] [place] [address] 68551 Potassium [Moles/Vol] 4.3 mmol/L Normal 3.5-5.3 [facility] Comment on above: Performed By: #### 2 4321-2 #### PETER MORAN ([id number]) [facility] ([facility]) [address] [place] [address] 73085 Sodium [Moles/Vol] 137 mmol/L Normal 136-145 [facility] Comment on above: Performed By: #### 2 4321-2 #### PETER MORAN ([id number]) [facility] ([facility]) [address] [place] [address] Urea nitrogen [Mass/Vol] 26 mg/dL High 6-23 [facility] Comment on above: Performed By: #### 2 4321-2 #### PETER MORAN ([id number]) [facility] HOSPITAL [facility] ([facility]) [address] [place] [address] CBC W Auto Differential pane l (Bld)on 10-17-2024 Basophils (Bld) [#/Vol] 0.02 10*3/uL [facility] Basophils/100 WBC (Bld) 0.5 % 0.0 - 2.0 % [facility] Eosinophils (Bld) [#/Vol] 0.04 10*3/uL [facility] Eosinophils/100 WBC (Bld) 1.1 % 0.0 - 6.0 % [facility] Erythrocyte distribution width (RBC) [Ratio] 11.6 % 11.5 - 14.5 % [facility] Hematocrit (Bld) [Volume fraction] 37 % 36.0 - 46.0 % [facility] Hemoglobin (Bld) [Mass/Vol] 12.3 g/dL 12.0 - 16.0 g/dL [facility] Immature granulocytes (Bld) [#/Vol] 0 10*3/uL [facility] Immature granulocytes/100 WBC (Bld) 0 % 0.0 - 0.9 % [facility] Comment on above: Immature Granulocyte Count (IG) includes promyelocytes, myelocytes and metamyelocytes but does not include bands. Percent differential counts (%) should be interpreted in the context of the absolute cell counts (cells/UL). Interpretation and review of laboratory results Abnormal [facility] Lymphocytes (Bld) [#/Vol] 1.41 10*3/uL [facility] Lymphocytes/100 WBC (Bld) 38.3 % 13.0 - 44.0 % [facility] MCH (RBC) [Entitic mass] 32.5 pg 26.0 - 34.0 pg [facility] MCHC (RBC) [Mass/Vol] 33.2 g/dL 32.0 - 36.0 g/dL [facility] MCV (RBC) [Entitic vol] 98 fL 80 - 100 fL [facility] Monocytes (Bld) [#/Vol] 0.43 10*3/uL [facility] Monocytes/100 WBC (Bld) 11.7 % 2.0 - 10.0 % [facility] Neutrophils (Bld) [#/Vol] 1.78 10*3/uL [facility] Comment on above: Percent differential counts (%) should be interpreted in the context of the absolute cell counts (cells/uL). Neutrophils/100 WBC (Bld) 48.4 % 40.0 - 80.0 % [facility] Nucleated RBC/100 WBC (Bld) [Ratio] 0 % [facility] Platelets (Bld) [#/Vol] 220 10*3/uL [facility] RBC (Bld) [#/Vol] 3.78 10*6/uL [facility] WBC (Bld) [#/Vol] 3.7 10*3/uL [facility] Basophils (Bld) [#/Vol] 0.02 x10*3/uL Normal 0.00-0.10 [facility] Comment on above: Performed By: #### 5 7021-8 #### PETER MORAN ([id number]) [facility] ([facility]) [address] [place] [address] Basophils/100 WBC (Bld) 0.5 % Normal 0.0-2.0 [facility] Comment on above: Performed By: #### 5 7021-8 #### PETER MORAN ([id number]) [facility] ([facility]) [address] [place] [address] Eosinophils (Bld) [#/Vol] 0.04 x10*3/uL Normal 0.00-0.70 [facility] Comment on above: Performed By: #### 5 7021-8 #### PETER MORAN ([id number]) [facility] ([facility]) [facility] [place] [address] Eosinophils/100 WBC (Bld) 1.1 % Normal 0.0-6.0 [facility] Comment on above: Performed By: #### 5 7021-8 #### PETER MORAN ([id number]) [facility] ([facility]) [address] [place] [address] Erythrocyte distribution width (RBC) [Ratio] 11.6 % Normal 11.5-14.5 [facility] Comment on above: Performed By: #### 5 7021-8 #### PETER MORAN ([id number]) [facility] ([facility]) [address] [place] [address] Hematocrit (Bld) [Volume fraction] 37.0 % Normal 36.0-46.0 [facility] Comment on above: Performed By: #### 5 7021-8 #### PETER MORAN ([id number]) [facility] ([facility]) [address] [place] [address] Hemoglobin (Bld) [Mass/Vol] 12.3 g/dL Normal 12.0-16.0 [facility] Comment on above: Performed By: #### 5 7021-8 #### PETER MORAN ([id number]) [facility] ([facility]) [address] [place], [place] [id number] Immature granulocytes (Bld) [#/Vol] 0.00 x10*3/uL Normal 0.00-0.70 [facility] Comment on above: Performed By: #### 5 7021-8 #### PETER MORAN ([id number]) [facility] ([facility]) [address] [place], [place] [id number] Immature granulocytes/100 WBC (Bld) 0.0 % Normal 0.0-0.9 [facility] Comment on above: Result Comment: Luciana ture Granulocyte Count (IG) includes promyelocytes, myelocytes and metamyelocytes but does not include bands. Percent differential counts (%) should be interpreted in the context of the absolute cell counts (cells/UL). Performed By: #### 5 7021-8 #### PETER MORAN ([id number]) [facility] ([facility]) [address] [place] [address] Lymphocytes (Bld) [#/Vol] 1.41 x10*3/uL Normal 1.20-4.80 [facility] Comment on above: Performed By: #### 5 7021-8 #### PETER MORAN ([id number]) [facility] ([facility]) [address] [place] [address] Lymphocytes/100 WBC (Bld) 38.3 % Normal 13.0-44.0 [facility] Comment on above: Performed By: #### 5 7021-8 #### PETER OMRAN ([id number]) [facility] ([facility]) [address] [place] [address] MCH (RBC) [Entitic mass] 32.5 pg Normal 26.0-34.0 [facility] Comment on above: Performed By: #### 5 7021-8 #### PETER MORAN ([id number]) [facility] ([facility]) [address] [place] [address] MCHC (RBC) [Mass/Vol] 33.2 g/dL Normal 32.0-36.0 [facility] Comment on above: Performed By: #### 5 7021-8 #### PETER MORAN ([id number]) [facility] ([facility]) [address] [place] [address] MCV (RBC) [Entitic vol] 98 fL Normal 80-100 U [facility] Comment on above: Performed By: #### 5 7021-8 #### PETER MORAN ([id number]) [facility] ([facility]) [address] [place] [address] Monocytes (Bld) [#/Vol] 0.43 x10*3/uL Normal 0.10-1.00 [facility] Comment on above: Performed By: #### 5 7021-8 #### PETER MORAN ([id number]) [facility] ([facility]) [address] [place] [address] Monocytes/100 WBC (Bld) 11.7 % Normal 2.0-10.0 [facility] Comment on above: Performed By: #### 5 7021-8 #### PETER MORAN ([id number]) [facility] ([facility]) [address] [place] [address] Neutrophils (Bld) [#/Vol] 1.78 x10*3/uL Normal 1.20-7.70 [facility] Comment on above: Result Comment: Perc ent differential counts (%) should be interpreted in the context of the absolute cell counts (cells/uL). Performed By: #### 5 7021-8 #### PETER MORAN ([id number]) [facility] ([facility]) [address] [place] [address] Neutrophils/100 WBC (Bld) 48.4 % Normal 40.0-80.0 [facility] Comment on above: Performed By: #### 5 7021-8 #### PETER MORAN ([id number]) [facility] ([facility]) [address] [place] [address] Nucleated RBC/100 WBC (Bld) [Ratio] 0.0 /100 WBCs Normal 0.0-0.0 [facility] Comment on above: Performed By: #### 5 7021-8 #### PETER MORAN ([id number]) [facility] ([facility]) [address] [place] [address] Platelets (Bld) [#/Vol] 220 x10*3/uL Normal 150-450 [facility] Comment on above: Performed By: #### 5 7021-8 #### PETER MORAN ([id number]) [facility] ([facility]) [address] [place] [address] RBC (Bld) [#/Vol] 3.78 x10*6/uL Low 4.00-5.20 [facility] Comment on above: Performed By: #### 5 7021-8 #### PETER MORAN ([id number]) [facility] ([facility]) [address] [place] [address] WBC (Bld) [#/Vol] 3.7 x10*3/uL Low 4.4-11.3 [facility] Comment on above: Performed By: #### 5 7021-8 #### GREEN DEAN ([id number]) [facility] ([facility]) [address] [place] [address] CT ANGIO CHEST ABDOMEN PELVI Son 10-17-2024 CT ANGIO CHEST ABDOMEN PELVIS Interpreted By: Hunter Torres, STUDY: CT ANGIO CHEST ABDOMEN PELVIS; 10/17/2024 12:36 pm INDICATION: Signs/Symptoms:ABD PAIN/NEAR SYNCOPE/ HX OF DEEP AORTIC ULCERATION. COMPARISON: None. ACCESSION NUMBER(S): [id number] ORDERING CLINICIAN: JESUS LA TECHNIQUE: CT of the chest, abdomen, and pelvis was performed. Contiguous axial images were obtained at 3 mm slice thickness through the chest, abdomen and pelvis. Coronal and sagittal reconstructions at 3 mm slice thickness were performed. 70 ML of Omnipaque 350 was administered intravenously without immediate complication. Images performed before and after IV contrast administration. Postcontrast acquisitions performed in the FINDINGS: CHEST: LUNG/PLEURA/LARGE AIRWAYS: No lung masses, pulmonary nodules or consolidations are present. There is no pleural effusion or pneumothorax. VESSELS: Eccentric outpouching of the descending thoracic aorta beyond the intima measures a proximally 5.7 cm in craniocaudal dimension. The aorta measures 3.3 cm at this level. There is no surrounding inflammatory changes or stranding or bleeding. Scattered atherosclerotic calcifications of the remainder of the visualized abdominal aorta. The ascending thoracic aorta is intact. The branch vessels are patent with scattered atherosclerotic calcifications. Iliac vasculature demonstrates scattered atherosclerotic calcifications without definite flow-limiting stenosis. The mesenteric artery origins are patent. No narrowing of the bilateral renal arteries origin. No large pulmonary central embolus on this limited examination. HEART: Normal size. There is no pericardial effusion. MEDIASTINUM AND KATI: No mediastinal, hilar or axillary lymphadenopathy is present. Esophagus: Within normal limits. CHEST WALL AND LOWER NECK: Within normal limits. The visualized thyroid gland appears within normal limits. ABDOMEN: LIVER: The liver is normal in size without evidence of focal liver lesions. BILE DUCTS: The intrahepatic and extrahepatic ducts are not dilated. GALLBLADDER: No calcified stones. No wall thickening. PANCREAS: The pancreas appears unremarkable. SPLEEN: The spleen is normal in size. ADRENAL GLANDS: Bilateral adrenal glands appear normal. KIDNEYS AND URETERS: The kidneys are normal in size and enhance symmetrically. No hydroureteronephrosis or nephroureterolithiasis is identified. Scattered bilateral cysts. PELVIS: BLADDER: The urinary bladder appears normal without abnormal wall thickening. REPRODUCTIVE ORGANS: No pelvic masses. BOWEL: The stomach, small and large bowel are normal in appearance without wall thickening or obstruction. The small and large bowel are normal in caliber and demonstrate no wall thickening. The appendix is not definitely visualized. There is however no pericecal stranding or fluid. PERITONEUM/RETROPERITONE UM/LYMPH NODES: No ascites or free air, no fluid collection. No enlarged mesenteric lymph nodes. BONE AND SOFT TISSUE: No suspicious osseous lesions are identified. Moderate to marked L2-L3 discogenic degenerative changes. IMPRESSION: Eccentric outpouching of the descending thoracic aorta beyond the intima measures a proximally 5.7 cm in craniocaudal dimension. The aorta measures 3.3 cm at this level. There is no surrounding inflammatory changes or stranding or bleeding. 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 MACRO: None Signed by: Hunter Torres 10/17/2024 3:08 PM Dictation workstation: [id number] [facility] CTA Chest and abdominal vess els W contrast Kota 10-17-2024 Eccentric outpouchin g of the descending thoracic aorta beyond the intima measures a proximally 5.7 cm in craniocaudal dimension. The aorta measures 3.3 cm at this level. There is no surrounding inflammatory changes or stranding or bleeding. 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 MACRO: None Signed by: Hunter Torres 10/17/2024 3:08 PM Dictation workstation: [id number] [facility]AL Interpreted By: Hunter Medellin ud, STUDY: CT ANGIO CHEST ABDOMEN PELVIS; 10/17/2024 12:36 pm INDICATION: Signs/Symptoms:ABD PAIN/NEAR SYNCOPE/ HX OF DEEP AORTIC ULCERATION. COMPARISON: None. ACCESSION NUMBER(S): [id number] ORDERING CLINICIAN: JESUS LA TECHNIQUE: CT of the chest, abdomen, and pelvis was performed. Contiguous axial images were obtained at 3 mm slice thickness through the chest, abdomen and pelvis. Coronal and sagittal reconstructions at 3 mm slice thickness were performed. 70 ML of Omnipaque 350 was administered intravenously without immediate complication. Images performed before and after IV contrast administration. Postcontrast acquisitions performed in the FINDINGS: CHEST: LUNG/PLEURA/LARGE AIRWAYS: No lung masses, pulmonary nodules or consolidations are present. There is no pleural effusion or pneumothorax. VESSELS: Eccentric outpouching of the descending thoracic aorta beyond the intima measures a proximally 5.7 cm in craniocaudal dimension. The aorta measures 3.3 cm at this level. There is no surrounding inflammatory changes or stranding or bleeding. Scattered atherosclerotic calcifications of the remainder of the visualized abdominal aorta. The ascending thoracic aorta is intact. The branch vessels are patent with scattered atherosclerotic calcifications. Iliac vasculature demonstrates scattered atherosclerotic calcifications without definite flow-limiting stenosis. The mesenteric artery origins are patent. No narrowing of the bilateral renal arteries origin. No large pulmonary central embolus on this limited examination. HEART: Normal size. There is no pericardial effusion. MEDIASTINUM AND KATI: No mediastinal, hilar or axillary lymphadenopathy is present. Esophagus: Within normal limits. CHEST WALL AND LOWER NECK: Within normal limits. The visualized thyroid gland appears within normal limits. ABDOMEN: LIVER: The liver is normal in size without evidence of focal liver lesions. BILE DUCTS: The intrahepatic and extrahepatic ducts are not dilated. GALLBLADDER: No calcified stones. No wall thickening. PANCREAS: The pancreas appears unremarkable. SPLEEN: The spleen is normal in size. ADRENAL GLANDS: Bilateral adrenal glands appear normal. KIDNEYS AND URETERS: The kidneys are normal in size and enhance symmetrically. No hydroureteronephrosis or nephroureterolithiasis is identified. Scattered bilateral cysts. PELVIS: BLADDER: The urinary bladder appears normal without abnormal wall thickening. REPRODUCTIVE ORGANS: No pelvic masses. BOWEL: The stomach, small and large bowel are normal in appearance without wall thickening or obstruction. The small and large bowel are normal in caliber and demonstrate no wall thickening. The appendix is not definitely visualized. There is however no pericecal stranding or fluid. PERITONEUM/RETROPERITONE UM/LYMPH NODES: No ascites or free air, no fluid collection. No enlarged mesenteric lymph nodes. BONE AND SOFT TISSUE: No suspicious osseous lesions are identified. Moderate to marked L2-L3 discogenic degenerative changes. MMODAL Dominic Torres MD - 10/17/2024 Interpreted By: Hunter Torres, STUDY: CT ANGIO CHEST ABDOMEN PELVIS; 10/17/2024 12:36 pm INDICATION: Signs/Symptoms:ABD PAIN/NEAR SYNCOPE/ HX OF DEEP AORTIC ULCERATION. COMPARISON: None. ACCESSION NUMBER(S): [id number] ORDERING CLINICIAN: JESUS LA TECHNIQUE: CT of the chest, abdomen, and pelvis was performed. Contiguous axial images were obtained at 3 mm slice thickness through the chest, abdomen and pelvis. Coronal and sagittal reconstructions at 3 mm slice thickness were performed. 70 ML of Omnipaque 350 was administered intravenously without immediate complication. Images performed before and after IV contrast administration. Postcontrast acquisitions performed in the FINDINGS: CHEST: LUNG/PLEURA/LARGE AIRWAYS: No lung masses, pulmonary nodules or consolidations are present. There is no pleural effusion or pneumothorax. VESSELS: Eccentric outpouching of the descending thoracic aorta beyond the intima measures a proximally 5.7 cm in craniocaudal dimension. The aorta measures 3.3 cm at this level. There is no surrounding inflammatory changes or stranding or bleeding. Scattered atherosclerotic calcifications of the remainder of the visualized abdominal aorta. The ascending thoracic aorta is intact. The branch vessels are patent with scattered atherosclerotic calcifications. Iliac vasculature demonstrates scattered atherosclerotic calcifications without definite flow-limiting stenosis. The mesenteric artery origins are patent. No narrowing of the bilateral renal arteries origin. No large pulmonary central embolus on this limited examination. HEART: Normal size. There is no pericardial effusion. MEDIASTINUM AND KATI: No mediastinal, hilar or axillary lymphadenopathy is present. Esophagus: Within normal limits. CHEST WALL AND LOWER NECK: Within normal limits. The visualized thyroid gland appears within normal limits. ABDOMEN: LIVER: The liver is normal in size without evidence of focal liver lesions. BILE DUCTS: The intrahepatic and extrahepatic ducts are not dilated. GALLBLADDER: No calcified stones. No wall thickening. PANCREAS: The pancreas appears unremarkable. SPLEEN: The spleen is normal in size. ADRENAL GLANDS: Bilateral adrenal glands appear normal. KIDNEYS AND URETERS: The kidneys are normal in size and enhance symmetrically. No hydroureteronephrosis or nephroureterolithiasis is identified. Scattered bilateral cysts. PELVIS: BLADDER: The urinary bladder appears normal without abnormal wall thickening. REPRODUCTIVE ORGANS: No pelvic masses. BOWEL: The stomach, small and large bowel are normal in appearance without wall thickening or obstruction. The small and large bowel are normal in caliber and demonstrate no wall thickening. The appendix is not definitely visualized. There is however no pericecal stranding or fluid. PERITONEUM/RETROPERITONE UM/LYMPH NODES: No ascites or free air, no fluid collection. No enlarged mesenteric lymph nodes. BONE AND SOFT TISSUE: No suspicious osseous lesions are identified. Moderate to marked L2-L3 discogenic degenerative changes. IMPRESSION: Eccentric outpouching of the descending thoracic aorta beyond the intima measures a proximally 5.7 cm in craniocaudal dimension. The aorta measures 3.3 cm at this level. There is no surrounding inflammatory changes or stranding or bleeding. 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 MACRO: None Signed by: Hunter Torres 10/17/2024 3:08 PM Dictation workstation: [id number] [facility] Work Phone: Radiology Study observation (narrative) [facility] Work Phone: CTA Chest and abdominal vess els W contrast IVOrdered By: Dominic Torres on 10-17-2024 [facility] Work Phone: Coagulation surface inducedo n 10-17-2024 aPTT Coag (PPP) [Time] 31 s Normal 26-36 [facility] Comment on above: Order Comment: The A PTT is no longer used for monitoring Unfractionated Heparin Therapy. For monitoring Heparin Therapy, use the Heparin Assay. Performed By: #### 1 4979-9 #### PETER MORAN ([id number]) [facility] ([facility]) [address] [place], [place] [id number] Coagulation tissue factor in ducedon 10-17-2024 PT Coag (PPP) [Time] 12.7 s High 9.8-12.4 [facility] Comment on above: Performed By: #### 5 902-2 #### PETER MORAN ([id number]) [facility] ([facility]) [address] [place] [address] D-Dimer, VTE Exclusionon Fibrin D-dimer FEU (PPP) [Mass/Vol] 320 [facility] ECG 12-LEADon 10-17-2024 ECG 12-LEAD Ventricular Rate 47 Atrial Rate 47 P-R Interval 180 QRS Duration 80 Q-T Interval 458 QTC Calculation(Bazett) 405 P [place] 84 R [place] 94 T [place] 103 QRS Count 8 Q Onset 227 P Onset 137 P Offset 182 T Offset 456 QTC Fredericia 422 Diagnosis Sinus bradycardia Rightward axis 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 Per natural gas treating unit operator's instructions for use, a value of less than 500 ng/mL (FEU) may help to exclude DVT or PE in outpatients when the assay is used with a clinical pretest probability assessment.(AE must utilize and document eCalc 'Wells Score Deep Vein Thrombosis Risk' for DVT exclusion only. Emergency Department should utilize Guidelines for Emergency Department Use of the VTE Exclusion D-Dimer and Clinical Pretest probability assessment model for DVT or PE exclusion.) Performed By: #### 4 8065-7 #### GREEN DEAN ([id number]) [facility] ([facility]) [address] [place] [address] Fibrin D-dimer FEU (PPP) [Ma ss/Vol]on 10-17-2024 The VTE Exclusion D-Dimer assay is reported in ng/mL Fibrinogen Equivalent Units (FEU). Per natural gas treating unit operator's instructions for use, a value of less than 500 ng/mL (FEU) may help to exclude DVT or PE in outpatients when the assay is used with a clinical pretest probability assessment.(AEMR must utilize and document eCalc 'Wells Score Deep Vein Thrombosis Risk' for DVT exclusion only. Emergency Department should utilize Guidelines for Emergency Department Use of the VTE Exclusion D-Dimer and Clinical Pretest probability assessment model for DVT or PE exclusion.) [facility] Hepatic function 2000 panelo n 10-17-2024 Albumin BCP dye [Mass/Vol] 4.7 g/dL 3.4 - 5.0 g/dL [facility] ALP [Catalytic activity/Vol] 70 U/L 33 - 136 U/L [facility] ALT With P-5'-P [Catalytic activity/Vol] 11 U/L 7 - 45 U/L [facility] Comment on above: Patients treated wit h Sulfasalazine may generate falsely decreased results for ALT. AST With P-5'-P [Catalytic activity/Vol] 19 U/L 9 - 39 U/L [facility] Bilirubin [Mass/Vol] 0.4 mg/dL 0.0 - 1 .2 mg/dL [facility] Bilirubin.direct [Mass/Vol] 0.1 mg/dL 0.0 - 0.3 mg/dL [facility] Protein [Mass/Vol] 7.1 g/dL 6.4 - 8.2 g/dL [facility] Albumin BCP dye [Mass/Vol] 4.7 g/dL Normal 3.4-5.0 [facility] Comment on above: Performed By: #### 2 4325-3 #### PETER MORAN ([id number]) [facility] ([facility]) [address] [place] [address] ALP [Catalytic activity/Vol] 70 U/L Normal 33-136 [facility] Comment on above: Performed By: #### 2 4325-3 #### PEETR MORAN ([id number]) [facility] ([facility]) [address] [place] [address] ALT With P-5'-P [Catalytic activity/Vol] 11 U/L Normal 7-45 [facility] Comment on above: Result Comment: Phoebe ents treated with Sulfasalazine may generate falsely decreased results for ALT. Performed By: #### 2 4325-3 #### PETER MORAN ([id number]) [facility] ([facility]) [address] [place] [address] AST With P-5'-P [Catalytic activity/Vol] 19 U/L Normal 9-39 [facility] Comment on above: Performed By: #### 2 4325-3 #### PETER MORAN ([id number]) [facility] ([facility]) [address] [place] [address] Bilirubin [Mass/Vol] 0.4 mg/dL Normal 0.0-1.2 [facility] Comment on above: Performed By: #### 2 4325-3 #### PETER MORAN ([id number]) [facility] ([facility]) [address] [place] [address] Bilirubin.direct [Mass/Vol] 0.1 mg/dL Normal 0.0-0.3 [facility] Comment on above: Performed By: #### 2 4325-3 #### PETER MORAN ([id number]) [facility] ([facility]) [address] [place] [address]349 Protein [Mass/Vol] 7.1 g/dL Normal 6.4-8.2 [facility] Comment on above: Performed By: #### 2 4325-3 #### PETER MORAN ([id number]) [facility] ([facility]) [address] [place] [address]2781 Lactateon 10-17-2024 Lactate [Moles/Vol] 1.2 mmol/L 0.4 - 2. 0 mmol/L [facility] Lactate [Moles/Vol] 1.2 mmol/L Normal 0.4-2.0 [facility] Comment on above: Order Comment: The A PTT is no longer used for monitoring Unfractionated Heparin Therapy. For monitoring Heparin Therapy, use the Heparin Assay. Performed By: #### 1 4979-9 #### PETER MORAN ([id number]) [facility] ([facility]) [address] [place] [address] 69145 Lactate [Moles/Vol]on 2024 Interpretation and review of laboratory results Normal [facility] Venipuncture immedia tely after or during the administration of Metamizole may lead to falsely low results. Testing should be performed immediately prior to Metamizole dosing. [facility] Lipaseon 10-17-2024 Lipase [Catalytic activity/Vol] 30 U/L 9 - 82 U/L [facility] Lipase [Catalytic activity/V ol]on 10-17-2024 Venipuncture immedia tely after or during the administration of Metamizole may lead to falsely low results. Testing should be performed immediately prior to Metamizole dosing. [facility] Magnesiumon 10-17-2024 Magnesium [Mass/Vol] 2.03 mg/dL 1.60 - 2.40 mg/dL [facility] Magnesium [Mass/Vol] 2.03 mg/dL Normal 1.60-2.40 [facility] Comment on above: Performed By: #### 1 9123-9 #### GREEN DEAN ([id number]) [facility] ([facility]) [address] [place] [address] Magnesium [Mass/Vol]on 10-17 Interpretation and review of laboratory results Normal [facility] Natriuretic peptide B [Mass/ Vol]on 10-17-2024 Interpretation and review of laboratory results Normal [facility] Natriuretic peptide B (Bld) [Mass/Vol] 19 pg/mL 0 - 99 pg/mL [facility] <100 pg/mL - Heart failure unlikely 100-299 pg/mL - Intermediate probability of acute heart failure exacerbation. Correlate with clinical context and patient history. >=300 pg/mL - Heart Failure likely. Correlate with clinical context and patient history. BNP testing is performed using different testing methodology at [facility]. Direct result comparisons should only be made within the same method. [facility] Natriuretic peptide B (Bld) [Mass/Vol] 19 pg/mL Normal 0-99 [facility] Comment on above: Order Comment: <100 pg/mL - Heart failure unlikely 100-299 pg/mL - Intermediate probability of acute heart failure exacerbation. Correlate with clinical context and patient history. >=300 pg/mL - Heart Failure likely. Correlate with clinical context and patient history. BNP testing is performed using different testing methodology at [facility] than at other [facility]. Direct result comparisons should only be made within the same method. Performed By: #### 3 0934-4 #### PETER MORAN ([id number]) [facility] ([facility]) [address] [place] [address] No Panel Informationon 10-17 Interpretation and review of laboratory results Normal [facility] Interpretation and review of laboratory results Normal [facility] PT Coag (PPP) [Time]on 10-17 INR Coag (PPP) [Relative time] 1.1 {INR} 0.9 - 1.1 [facility] Interpretation and review of laboratory results Abnormal [facility] INR Coag (PPP) [Relative time] 1.1 Normal 0.9-1.1 [facility] Comment on above: Performed By: #### 5 902-2 #### PETER MORAN ([id number]) [facility] ([facility]) [address] [place] [address] Protime-INRon 10-17-2024 PT Coag (PPP) [Time] 12.7 s [facility] SST TOPon 10-17-2024 Extra Tube Hold for add-ons. [facility] Comment on above: Auto resulted. [facility] Triacylglycerol lipaseon Lipase [Catalytic activity/Vol] 30 U/L Normal 9-82 [facility] Comment on above: Order Comment: Venip uncture immediately after or during the administration of Metamizole may lead to falsely low results. Testing should be performed immediately prior to Metamizole dosing. Performed By: #### 3 040-3 #### PETER MORAN ([id number]) [facility] ([facility]) [address] [place] [address] Tropinin I.cardiac panel Hig h sensitivity methodon 10-17-2024 Interpretation and review of laboratory results Normal [facility] Less than 99th percentile of normal range cutoff- Female and children under 18 years old <14 ng/L; Male <21 ng/L: Negative Repeat testing should be performed if clinically indicated. Female and children under 18 years old 14-50 ng/L; Male 21-50 ng/L: Consistent with possible cardiac damage and possible increased clinical risk. Serial measurements may help to assess extent of myocardial damage. >50 ng/L: Consistent with cardiac damage, increased clinical risk and myocardial infarction. Serial measurements may help assess extent of myocardial damage. NOTE: Children less than 1 year old may have higher baseline troponin levels and results should be interpreted in conjunction with the overall clinical context. NOTE: Troponin I testing is performed using a different testing methodology at [facility] than at other [facility]. Direct result comparisons should only be made within the same method. [facility] Interpretation and review of laboratory results Normal [facility] Less than 99th percentile of normal range cutoff- Female and children under 18 years old <14 ng/L; Male <21 ng/L: Negative Repeat testing should be performed if clinically indicated. Female and children under 18 years old 14-50 ng/L; Male 21-50 ng/L: Consistent with possible cardiac damage and possible increased clinical risk. Serial measurements may help to assess extent of myocardial damage. >50 ng/L: Consistent with cardiac damage, increased clinical risk and myocardial infarction. Serial measurements may help assess extent of myocardial damage. NOTE: Children less than 1 year old may have higher baseline troponin levels and results should be interpreted in conjunction with the overall clinical context. NOTE: Troponin I testing is performed using a different testing methodology at [facility] than at other [facility]. Direct result comparisons should only be made within the same method. [facility] Troponin I, High Sensitivity on 10-17-2024 Tropinin I.cardiac panel High sensitivity method 7 ng/L 0 - 13 ng/L [facility] Tropinin I.cardiac panel High sensitivity method 4 ng/L 0 - 13 ng/L [facility] Troponin I.cardiac panelon 0 10-17-2024 Tropinin I.cardiac panel High sensitivity method 7 ng/L Normal 0-13 [facility] Comment on above: Order Comment: The A PTT is no longer used for monitoring Unfractionated Heparin Therapy. For monitoring Heparin Therapy, use the Heparin Assay. Performed By: #### 1 4979-9 #### GREEN DEAN ([id number]) [facility] ([facility]) [address] [place] [address] Tropinin I.cardiac panel High sensitivity method 4 ng/L Normal 0-13 [facility] Comment on above: Order Comment: The A PTT is no longer used for monitoring Unfractionated Heparin Therapy. For monitoring Heparin Therapy, use the Heparin Assay. Performed By: #### 1 4979-9 #### PETER MORAN ([id number]) [facility] ([facility]) [address] [place] [address] Urinalysis complete W Reflex Culture panel (U)on 10-17-2024 Appearance (U) Clear Clear [facility] Bilirubin (U) [Mass/Vol] Negative NEGATIVE mg/dL [facility] Color (U) Colorless Abnormal Light-Yello w, Yellow, Dark-Yellow [facility] Glucose Auto test strip (U) [Mass/Vol] Normal Normal mg/dL [facility] Interpretation and review of laboratory results Abnormal [facility] Ketones (U) [Mass/Vol] Negative NEGAT AMANDA mg/dL [facility] Leukocyte esterase Auto test strip Ql (U) Negative NEGATIVE [facility] Nitrite Auto test strip Ql (U) Negative NEGATIVE [facility] pH (U) 7 [pH] 5.0, 5.5, 6.0, 6.5, 7.0, 7.5, 8.0 [facility] Protein (U) [Mass/Vol] Negative NEGAT AMANDA, 10 (TRACE), 20 (TRACE) mg/dL [facility] RBC (U) [#/Vol] Negative NEGATIVE mg/dL [facility] Specific gravity (U) [Rel density] 1.034 1.005 - 1.035 [facility] Urobilinogen (U) [Mass/Vol] Normal Normal mg/dL [facility] Appearance (U) Clear Normal Clear [facility] Comment on above: Performed By: #### 1 4979-9 #### PETER MORAN ([id number]) [facility] ([facility]) [address] [place] [address] Bilirubin (U) [Mass/Vol] Negative Normal NEGATIVE [facility] Comment on above: Performed By: #### 1 4979-9 #### PETER MORAN ([id number]) [facility] ([facility]) [address] [place], [place] [id number] Color (U) Colorless Normal Light-Yello w, Yellow, Dark-Yellow [facility] Comment on above: Performed By: #### 1 4979-9 #### PETER MORAN ([id number]) [facility] ([facility]) [address] [place] [address] Glucose Auto test strip (U) [Mass/Vol] Normal Normal Normal [facility] Comment on above: Performed By: #### 1 4979-9 #### PETER MORAN ([id number]) [facility] ([facility]) [address] [place] [address] Ketones (U) [Mass/Vol] Negative Normal [facility]IVE [facility] Comment on above: Performed By: #### 1 4979-9 #### PETER MORAN ([id number]) [facility] ([facility]) [address] [place] [address] Leukocyte esterase Auto test strip Ql (U) Negative Normal NEGATIVE [facility] Comment on above: Performed By: #### 1 4979-9 #### PETER MORAN ([id number]) [facility] ([facility]) [address] [place] [address] Nitrite Auto test strip Ql (U) Negative Normal NEGATIVE [facility] Comment on above: Performed By: #### 1 4979-9 #### PETER MORAN ([id number]) [facility] ([facility]) [address] [place], [place] [address] pH (U) 7.0 [pH] Normal 5.0, 5.5, 6.0, 6.5, 7.0, 7.5, 8.0 [facility] Comment on above: Performed By: #### 1 4979-9 #### PETER MORAN ([id number]) [facility] ([facility]) [address] [place], [place] [address] Protein (U) [Mass/Vol] Negative Normal NEGAT AMANDA, 10 (TRACE), 20 (TRACE) [facility] Comment on above: Performed By: #### 1 4979-9 #### PETER MORAN ([id number]) [facility] ([facility]) [address] [place] [address] RBC (U) [#/Vol] Negative Normal NEGATIVE [facility] Comment on above: Performed By: #### 1 4979-9 #### PETER MORAN ([id number]) [facility] ([facility]) [address] [place] [address] Specific gravity (U) [Rel density] 1.034 Normal 1.005-1.035 [facility] Comment on above: Performed By: #### 1 4979-9 #### PETER MORAN ([id number]) [facility] ([facility]) [address] [place] [address] Urobilinogen (U) [Mass/Vol] Normal Normal Normal [facility] Comment on above: Performed By: #### 1 4979-9 #### PETER MORAN ([id number]) [facility] ([facility]) [address] [place] [address] XR CHEST 1 VIEWon 10-17-2024 XR CHEST 1 VIEW Interpreted By: Jeffrey Klein, STUDY: XR CHEST 1 VIEW INDICATION: Signs/Symptoms:CHEST PAIN. COMPARISON: None ACCESSION NUMBER(S): [id number] ORDERING CLINICIAN: JESUS LA FINDINGS: No consolidation, effusion, edema, or pneumothorax. Heart size within normal limits. IMPRESSION: No evidence of acute intrathoracic abnormality. Signed by: Jeffrey Patel 10/17/2024 11:09 AM Dictation workstation: [id number] Normal [facility] XR Chest Single viewon 10-17 No evidence of acute intrathoracic abnormality. Signed by: Jeffrey Patel 10/17/2024 11:09 AM Dictation workstation: [id number] MMODAL Interpreted By: Jeffrey Klein, STUDY: XR CHEST 1 VIEW INDICATION: Signs/Symptoms:CHEST PAIN. COMPARISON: None ACCESSION NUMBER(S): [id number] ORDERING CLINICIAN: JESUS LA FINDINGS: No consolidation, effusion, edema, or pneumothorax. Heart size within normal limits. MMODAL Jeffrey Patel MD - 10/17/2024 Interpreted By: Jeffrey Patel, STUDY: XR CHEST 1 VIEW INDICATION: Signs/Symptoms:CHEST PAIN. COMPARISON: None ACCESSION NUMBER(S): [id number] ORDERING CLINICIAN: JESUS LA FINDINGS: No consolidation, effusion, edema, or pneumothorax. Heart size within normal limits. IMPRESSION: No evidence of acute intrathoracic abnormality. Signed by: Jeffrey Patel 10/17/2024 11:09 AM Dictation workstation: [id number] [facility] Work Phone: Radiology Study observation (narrative) [facility] Work Phone: XR Chest Single viewOrdered By: Jeffrey Patel on 10-17-2024 [facility] Work Phone: aPTTon 10-17-2024 aPTT Coag (PPP) [Time] 31 s [facility] aPTT Coag (PPP) [Time]on The APTT is no longe r used for monitoring Unfractionated Heparin Therapy. For monitoring Heparin Therapy, use the Heparin Assay. [facility] CT ANGIO CHEST (NONCORONARY) on 10-10-2024 CT ANGIO CHEST (NONCORONARY) EXAM: CT ANGIO CHEST (NONCORONARY), 10/10/2024 08:22 AM CLINICAL INDICATIONS: Aortic Aneurysm COMPARISON: March 07, 2024 TECHNIQUE: The imaging was performed using a MDCT system. It included a spiral acquisition from the shoulders to the upper abdomen in order to assess the entire thoracic aorta and arch vessels, as well as suprarenal abdominal aorta. 3D reconstruction was performed on an independent workstation based on specific patient condition and were reviewed and approved by Ivan Pimentel MD. CONTRAST: iohexol (OMNIPAQUE) 350 MG/ML injection 1-171 mL; Route of Administration: Intravenous; Dose: 70 mL. FINDINGS: Chest Wall: Degenerative changes of the thoracic spine Mediastinum: Normal, without adenopathy Kati: Normal, without adenopathy Pleural Spaces: Normal, without thickening/effusion or pneumothorax Lung Parenchyma: Mild emphysematous changes. No consolidation or mass. Pericardium: Normal, without thickening/effusion ----- Atria: Normal, without thrombus Right Ventricle: Normal Left Ventricle: Normal Coronary Arteries: RCA stent. Valves: Normal Pulmonary Arteries: Normal ----- Thoracic Aorta: * Grossly stable broad-based saccular/mushroom-shaped penetrating atherosclerotic ulcer involving the left anterolateral aspect of the mid descending segment. Its neck extends over an approximate distance of 3.5 cm and measures 19 mm in depth (series 10, image 100). Stable overall aortic diameter measuring up to 3.5 cm at the level of the ulcer. * Stable aortic root measuring 3.8 cm in diameter. Arch Branches: Normal ----- Abdominal Aorta: Mild atherosclerosis. Normal dimensions. ----- Upper abdomen: Bilateral renal hypodensities, some are cysts, others are too small to characterize. IMPRESSION: 1. Stable morphology and size of large deep penetrating atherosclerotic ulcer involving the mid descending segment. 2. Other ancillary findings are noted as above. Normal [facility] IMPRESSION: 1. Stable morphology and size of large deep penetrating atherosclerotic ulcer involving the mid descending segment. 2. Other ancillary findings are noted as above. OLOGY EXAM: CT ANGIO CHEST (NONCORONARY), 10/10/2024 08:22 AM CLINICAL INDICATIONS: Aortic Aneurysm COMPARISON: March 07, 2024 TECHNIQUE: The imaging was performed using a MDCT system. It included a spiral acquisition from the shoulders to the upper abdomen in order to assess the entire thoracic aorta and arch vessels, as well as suprarenal abdominal aorta. 3D reconstruction was performed on an independent workstation based on specific patient condition and were reviewed and approved by Ivan Pimentel MD. CONTRAST: iohexol (OMNIPAQUE) 350 MG/ML injection 1-171 mL; Route of Administration: Intravenous; Dose: 70 mL. FINDINGS: Chest Wall: Degenerative changes of the thoracic spine Mediastinum: Normal, without adenopathy Kati: Normal, without adenopathy Pleural Spaces: Normal, without thickening/effusion or pneumothorax Lung Parenchyma: Mild emphysematous changes. No consolidation or mass. Pericardium: Normal, without thickening/effusion ----- Atria: Normal, without thrombus Right Ventricle: Normal Left Ventricle: Normal Coronary Arteries: RCA stent. Valves: Normal Pulmonary Arteries: Normal ----- Thoracic Aorta: * Grossly stable broad-based saccular/mushroom-shaped penetrating atherosclerotic ulcer involving the left anterolateral aspect of the mid descending segment. Its neck extends over an approximate distance of 3.5 cm and measures 19 mm in depth (series 10, image 100). Stable overall aortic diameter measuring up to 3.5 cm at the level of the ulcer. * Stable aortic root measuring 3.8 cm in diameter. Arch Branches: Normal ----- Abdominal Aorta: Mild atherosclerosis. Normal dimensions. ----- Upper abdomen: Bilateral renal hypodensities, some are cysts, others are too small to characterize. RADIOLOGY Ivan Pimentel [facility] - 10/10/2024 EXAM: CT ANGIO CHEST (NONCORONARY), 10/10/2024 08:22 AM CLINICAL INDICATIONS: Aortic Aneurysm COMPARISON: March 07, 2024 TECHNIQUE: The imaging was performed using a MDCT system. It included a spiral acquisition from the shoulders to the upper abdomen in order to assess the entire thoracic aorta and arch vessels, as well as suprarenal abdominal aorta. 3D reconstruction was performed on an independent workstation based on specific patient condition and were reviewed and approved by Ivan Pimentel MD. CONTRAST: iohexol (OMNIPAQUE) 350 MG/ML injection 1-171 mL; Route of Administration: Intravenous; Dose: 70 mL. FINDINGS: Chest Wall: Degenerative changes of the thoracic spine Mediastinum: Normal, without adenopathy Kati: Normal, without adenopathy Pleural Spaces: Normal, without thickening/effusion or pneumothorax Lung Parenchyma: Mild emphysematous changes. No consolidation or mass. Pericardium: Normal, without thickening/effusion --- -- Atria: Normal, without thrombus Right Ventricle: Normal Left Ventricle: Normal Coronary Arteries: RCA stent. Valves: Normal Pulmonary Arteries: Normal --- -- Thoracic Aorta: * Grossly stable broad-based saccular/mushroom-shaped penetrating atherosclerotic ulcer involving the left anterolateral aspect of the mid descending segment. Its neck extends over an approximate distance of 3.5 cm and measures 19 mm in depth (series 10, image 100). Stable overall aortic diameter measuring up to 3.5 cm at the level of the ulcer. * Stable aortic root measuring 3.8 cm in diameter. Arch Branches: Normal --- -- Abdominal Aorta: Mild atherosclerosis. Normal dimensions. --- -- Upper abdomen: Bilateral renal hypodensities, some are cysts, others are too small to characterize. IMPRESSION IMPRESSION: 1. Stable morphology and size of large deep penetrating atherosclerotic ulcer involving the mid descending segment. 2. Other ancillary findings are noted as above. [facility] Radiology Study observation (narrative) [facility] CT ANGIO CHEST (NONCORONARY) Ordered By: Ivan Pimentel on 10-10-2024 [facility] Vitamin D,25 Hydroxyon 10-18 -2024 Vitamin D 25-OH 28.4 ng/mL Normal [facility] Comment on above: Result Comment: Kaylee min D 25(OH) Status Range Deficiency <20 ng/mL (50nmol/L) Insufficiency 20 - 30 ng/mL (50 - 75 nmol/L) Sufficiency 30 - 100 ng/mL (75 - 250 nmol/L) Toxicity >100 ng/mL (>250 nmol/L) Performed By: #### L 500.4050, L100.0100, L501.9520, L506.1001, L500.4100 #### [facility] [address] [place], [address] CBC W/Diff, Automatedon 04-02 Absolute Lymph 1.45 X10 3/uL Normal 0.83-4.51 [facility] Comment on above: Performed By: #### L 500.4050, L100.0100, L501.9520, L506.1001, L500.4100 #### [facility] [address] [place], [address] Absolute Neut 1.8 X10 3/uL Low 2.0-7.7 [facility] Comment on above: Performed By: #### L 500.4050, L100.0100, L501.9520, L506.1001, L500.4100 #### [facility] [address] [place], [address] Basophils/100 WBC (Bld) 1.0 % Normal 0-1 [facility] Comment on above: Performed By: #### L 500.4050, L100.0100, L501.9520, L506.1001, L500.4100 #### [facility] [address] [place], [address] Eosinophils/100 WBC (Bld) 3.4 % Normal 0-5 [facility] Comment on above: Performed By: #### L 500.4050, L100.0100, L501.9520, L506.1001, L500.4100 #### [facility] [address] [place], [address] Erythrocyte distribution width (RBC) [Ratio] 12.2 % Normal 11.6-14.6 [facility] Comment on above: Performed By: #### L 500.4050, L100.0100, L501.9520, L506.1001, L500.4100 #### [facility] [address] [place], [address] Hematocrit (Bld) [Volume fraction] 36.3 % Low 37-47 [facility] Comment on above: Performed By: #### L 500.4050, L100.0100, L501.9520, L506.1001, L500.4100 #### [facility] [address] [place], [address] Hemoglobin (Bld) [Mass/Vol] 11.9 g/dL Low 12.0-15.0 [facility] Comment on above: Performed By: #### L 500.4050, L100.0100, L501.9520, L506.1001, L500.4100 #### [facility] [address] [place], [address] IG% 0.300 Normal 0.0-0.9 [facility] Comment on above: Result Comment: IG% - Immature Granulocytes (promyelocytes, myelocytes and metamyelocytes) > 1% indicates that a LEFT SHIFT is Present. Performed By: #### L 500.4050, L100.0100, L501.9520, L506.1001, L500.4100 #### [facility] [address] [place], [address] Lymphocytes/100 WBC (Bld) 38.1 % Normal 19-41 [facility] Comment on above: Performed By: #### L 500.4050, L100.0100, L501.9520, L506.1001, L500.4100 #### [facility] [address] [place], [address] MCH (RBC) [Entitic mass] 32.9 pg High 27.0-32.0 [facility] Comment on above: Performed By: #### L 500.4050, L100.0100, L501.9520, L506.1001, L500.4100 #### [facility] [address] [place], [address] MCHC (RBC) [Mass/Vol] 32.8 g/dL Normal 32-36 [facility] Comment on above: Performed By: #### L 500.4050, L100.0100, L501.9520, L506.1001, L500.4100 #### [facility] [address] [place], [address] MCV (RBC) [Entitic vol] 100.3 fL High 81-99 [facility] Comment on above: Performed By: #### L 500.4050, L100.0100, L501.9520, L506.1001, L500.4100 #### [facility] [address] [place], [address] Monocytes/100 WBC (Bld) 8.9 % Normal 0-10 [facility] Comment on above: Performed By: #### L 500.4050, L100.0100, L501.9520, L506.1001, L500.4100 #### [facility] [address] [place], [address] Neutrophils/100 WBC (Bld) 48.3 % Normal 47-70 [facility] Comment on above: Performed By: #### L 500.4050, L100.0100, L501.9520, L506.1001, L500.4100 #### [facility] [address] [place], [address] Nucleated RBC (Bld) [#/Vol] 0 10*3/uL Normal 0-5 [facility] Comment on above: Performed By: #### L 500.4050, L100.0100, L501.9520, L506.1001, L500.4100 #### [facility] [address] [place], [address] Platelet mean volume (Bld) [Entitic vol] 9.1 fL Normal 6.2-12.0 [facility] Comment on above: Performed By: #### L 500.4050, L100.0100, L501.9520, L506.1001, L500.4100 #### [facility] [address] [place], [address] Platelets (Bld) [#/Vol] 257 10*3/uL Normal 150-450 [facility] Comment on above: Performed By: #### L 500.4050, L100.0100, L501.9520, L506.1001, L500.4100 #### [facility] [address] [place], [address] RBC (Bld) [#/Vol] 3.62 10*6/uL Low 4.2-5.4 [facility] Comment on above: Performed By: #### L 500.4050, L100.0100, L501.9520, L506.1001, L500.4100 #### [facility] [address] [place], [address] RDW SD 45.1 fl High 35.1-43.9 [facility] Comment on above: Performed By: #### L 500.4050, L100.0100, L501.9520, L506.1001, L500.4100 #### [facility] [address] [place], [address] WBC (Bld) [#/Vol] 3.8 10*3/uL Low 4.4-11.0 [facility] Comment on above: Performed By: #### L 500.4050, L100.0100, L501.9520, L506.1001, L500.4100 #### [facility] [address] [place], [address] Comprehensive Metabolic Prof ilon 04-18-2024 Albumin [Mass/Vol] 4.2 g/dL Normal 3.2-5.0 [facility] Comment on above: Performed By: #### L 500.4050, L100.0100, L501.9520, L506.1001, L500.4100 #### [facility] [address] [place], [address] Albumin/Globulin [Mass ratio] 1.1 {ratio} Normal 0.9-2.4 [facility] Comment on above: Performed By: #### L 500.4050, L100.0100, L501.9520, L506.1001, L500.4100 #### [facility] [address] [place], [address] ALK P 114 U/L Normal 45-117 [facility] Comment on above: Performed By: #### L 500.4050, L100.0100, L501.9520, L506.1001, L500.4100 #### [facility] [address] [place], [address] ALT [Catalytic activity/Vol] 28 U/L Normal 13-56 [facility] Comment on above: Performed By: #### L 500.4050, L100.0100, L501.9520, L506.1001, L500.4100 #### [facility] [address] [place], [address] AST [Catalytic activity/Vol] 32 U/L Normal 15-37 [facility] Comment on above: Performed By: #### L 500.4050, L100.0100, L501.9520, L506.1001, L500.4100 #### [facility] [address] [place], [address] Bilirubin [Mass/Vol] 0.30 mg/dL Normal 0.20-1.00 [facility] Comment on above: Result Comment: For patients on eltrombopag therapy, use of Dimension [place] TBIL is not recommended. Performed By: #### L 500.4050, L100.0100, L501.9520, L506.1001, L500.4100 #### [facility] [address] [place], [address] BUN/CRE 18.0 RATIO Normal 10-20 [facility] Comment on above: Performed By: #### L 500.4050, L100.0100, [id number], L506.1001, L500.4100 #### [facility] [address] [place], [address] CA,Total 9.2 mg/dL Normal 8.5-10.1 [facility] Comment on above: Performed By: #### L 500.4050, L100.0100, L501.9520, L506.1001, L500.4100 #### [facility] [address] [place], [address] Chloride [Moles/Vol] 105 mmol/L Normal 98-107 [facility] Comment on above: Performed By: #### L 500.4050, L100.0100, L501.9520, L506.1001, L500.4100 #### [facility] [address] [place], [address] CO2 [Moles/Vol] 27.0 mmol/L Normal 21.0-32.0 [facility] Comment on above: Performed By: #### L 500.4050, L100.0100, L501.9520, L506.1001, L500.4100 #### [facility] [address] [place], [address] Creatinine [Mass/Vol] 1.00 mg/dL Normal 0.55-1.02 [facility] Comment on above: Result Comment: The validity of the calculated GFR GFRAA in patients over 70 years has not been determined. Clinical correlation is essential. Performed By: #### L 500.4050, L100.0100, L501.9520, L506.1001, L500.4100 #### [facility] [address] [place], [address] EST GFR - AA 72 mL/min Normal >60 [facility] Comment on above: Result Comment: Afri can Lithuanian GFR Calc Performed By: #### L 500.4050, L100.0100, L501.9520, L506.1001, L500.4100 #### [facility] [address] [place], [address] GAP 5 Normal 5-15 [facility] Comment on above: Performed By: #### L 500.4050, L100.0100, L501.9520, L506.1001, L500.4100 #### [facility] [address] [place], [address] GFR/1.73 sq M.predicted among non-blacks MDRD (S/P/Bld) [Vol rate/Area] 60 mL/min/{1.73_m2} Normal >60 [facility] Comment on above: Result Comment: Non- GFR Calc Performed By: #### L 500.4050, L100.0100, L501.9520, L506.1001, L500.4100 #### [facility] [address] [place], [address] Globulin (S) [Mass/Vol] 3.7 g/dL Normal 2.2-4.2 [facility] Comment on above: Performed By: #### L 500.4050, L100.0100, L501.9520, L506.1001, L500.4100 #### [facility] [address] [place], [address] Glucose [Mass/Vol] 126 mg/dL High 74-106 [facility] Comment on above: Result Comment: Fast ing Glucose result greater than or equal to 126 mg/dL suggests DIABETES MELLITUS per A.D.A. criteria. Performed By: #### L 500.4050, L100.0100, L501.9520, L506.1001, L500.4100 #### [facility] [address] [place], [address] Potassium [Moles/Vol] 3.7 mmol/L Normal 3.5-5.1 [facility] Comment on above: Performed By: #### L 500.4050, L100.0100, L501.9520, L506.1001, L500.4100 #### [facility] [address] [place], [address] Sodium [Moles/Vol] 137 mmol/L Normal 136-145 [facility] Comment on above: Performed By: #### L 500.4050, L100.0100, L501.9520, L506.1001, L500.4100 #### [facility] [address] [place], [address] T PROT 7.9 g/dL Normal 6.4-8.2 [facility] Comment on above: Performed By: #### L 500.4050, L100.0100, L501.9520, L506.1001, L500.4100 #### [facility] [address] [place], [address] Urea nitrogen [Mass/Vol] 18 mg/dL Normal 7-18 [facility] Comment on above: Performed By: #### L 500.4050, L100.0100, L501.9520, L506.1001, L500.4100 #### [facility] [address] [place], [address] Lipid Profileon 04-18-2024 Cholesterol [Mass/Vol] 157 mg/dL Normal 200 [facility] Comment on above: Result Comment: <200 mg/dL Desirable 200-240 mg/dL Borderline >240 mg/dL High Risk Performed By: #### L 500.4050, L100.0100, L501.9520, L506.1001, L500.4100 #### [facility] [address] [place], [address] Cholesterol in HDL [Mass/Vol] 101 mg/dL Normal [facility] Comment on above: Result Comment: The drugs N-Acetylcysteine and Metamizole may falsely depress this assay. Reference Range HDL <40 mg/dL Low HDL Cholesterol HDL >or= 60 mg/dL High HDL Cholesterol Performed By: #### L 500.4050, L100.0100, L501.9520, L506.1001, L500.4100 #### [facility] [address] [place], [address] Cholesterol in LDL [Mass/Vol] 33 mg/dL Normal 0-130 [facility] Comment on above: Performed By: #### L 500.4050, L100.0100, L501.9520, L506.1001, L500.4100 #### [facility] [address] [place], [address] Cholesterol in VLDL [Mass/Vol] 23 mg/dL Normal 5-40 [facility] Comment on above: Performed By: #### L 500.4050, L100.0100, L501.9520, L506.1001, L500.4100 #### [facility] [address] [place], [address] Triglyceride [Mass/Vol] 117 mg/dL Normal [facility] Comment on above: Result Comment: The drugs N-Acetylcysteine and Metamizole may falsely depress this assay. Serum Triglycerides Reference Interval Normal <150 mg/dL Borderline high 150 - 199 mg/dL High 200 - 499 mg/dL Very High > or = 500 mg/dL Performed By: #### L 500.4050, L100.0100, L501.9520, L506.1001, L500.4100 #### [facility] [address] [place], [address] Thyroid Stim Hormone (TSH)on 04-18-2024 TSH 0.784 uIU/mL Normal 0.358-3.740 [facility] Comment on above: Performed By: #### L 500.4050, L100.0100, L501.9520, L506.1001, L500.4100 #### [facility] [address] [facility] [place], [place], [id number] ECG B/O W INTERP (MED OFFICE )on 03-28-2024 Poor data quality wi th baseline artifact, possibly impacting interpretation; possibly low atrial ectopic rhythm 60 bpm; first-degree AV block (WI 210 ms); normal QRS duration 82 ms; QTc 416 ms [facility] CREAT/GFRon 03-07-2024 Creatinine [Mass/Vol] 0.65 mg/dL 0.50 - 1.20 mg/dL [facility] GFR/1.73 sq M.predicted CKD-EPI (S/P/Bld) [Vol rate/Area] - PINF [facility] Comment on above: Reported eGFR is bas ed on the CKD-EPI 2020 equation using creatinine, age, and sex. Interpretation and review of laboratory results Normal [facility] Test performed at address of the patient encounter. [facility] CT ANGIO CHEST (NONCORONARY) on 03-07-2024 CT ANGIO CHEST (NONCORONARY) EXAM: CT ANGIO CHEST (NONCORONARY), 03/07/2024 08:21 AM CLINICAL INDICATIONS: descending thoracic aortic JOAQUINA; COMPARISON: Compared to prior study dated 09/14/2023. TECHNIQUE: The imaging was performed using a MDCT system. It included a spiral acquisition from the shoulders to the upper abdomen in order to assess the entire thoracic aorta and arch vessels, as well as suprarenal abdominal aorta. 3D reconstruction was performed on an independent workstation based on specific patient condition and were reviewed and approved by Gregor Morelos M.D.. CONTRAST: iohexol (OMNIPAQUE) 350 MG/ML injection 1-171 mL; Route of Administration: Intravenous; Dose: 70 mL. FINDINGS: Chest Wall: Degenerative changes of the thoracic spine Mediastinum: Normal, without adenopathy Kati: Normal, without adenopathy Pleural Spaces: Normal, without thickening/effusion or pneumothorax Lung Parenchyma: Upper lobe predominant emphysematous changes. No dominant mass or suspicious nodule. Cardiac: RCA stent. Normal pericardium, without thickening/effusion Pulmonary Arteries: Normal caliber. Inadequate opacification for intraluminal evaluation. ----- Thoracic Aorta: Redemonstration of a broad-based saccular/mushroom-shaped penetrating atherosclerotic ulcer involving the left anterolateral aspect of the mid descending segment. Its neck again extends over an approximate distance of 3.5 cm (image 95, series 11).The overall aortic diameter at the level of the ulcer is again stable measuring 3.5 cm (image 87, series 7). Arch Branches: The visualized proximal great vessels are patent and demonstrate scattered atheromatous changes. ----- Upper abdomen: Renal cysts and too small to characterized hypodensities. The remaining visualized upper abdomen is otherwise grossly unremarkable. IMPRESSION: 1. Stable morphology and size of a large penetrating atherosclerotic ulcer involving the mid descending segment. 2. Stable additional ancillary findings as described above. Normal [facility] IMPRESSION: 1. Stable morphology and size of a large penetrating atherosclerotic ulcer involving the mid descending segment. 2. Stable additional ancillary findings as described above. OLOGY EXAM: CT ANGIO CHEST (NONCORONARY), 03/07/2024 08:21 AM CLINICAL INDICATIONS: descending thoracic aortic JOAQUINA; COMPARISON: Compared to prior study dated 09/14/2023. TECHNIQUE: The imaging was performed using a MDCT system. It included a spiral acquisition from the shoulders to the upper abdomen in order to assess the entire thoracic aorta and arch vessels, as well as suprarenal abdominal aorta. 3D reconstruction was performed on an independent workstation based on specific patient condition and were reviewed and approved by Gregor Morelos M.D.. CONTRAST: iohexol (OMNIPAQUE) 350 MG/ML injection 1-171 mL; Route of Administration: Intravenous; Dose: 70 mL. FINDINGS: Chest Wall: Degenerative changes of the thoracic spine Mediastinum: Normal, without adenopathy Kati: Normal, without adenopathy Pleural Spaces: Normal, without thickening/effusion or pneumothorax Lung Parenchyma: Upper lobe predominant emphysematous changes. No dominant mass or suspicious nodule. Cardiac: RCA stent. Normal pericardium, without thickening/effusion Pulmonary Arteries: Normal caliber. Inadequate opacification for intraluminal evaluation. ----- Thoracic Aorta: Redemonstration of a broad-based saccular/mushroom-shaped penetrating atherosclerotic ulcer involving the left anterolateral aspect of the mid descending segment. Its neck again extends over an approximate distance of 3.5 cm (image 95, series 11).The overall aortic diameter at the level of the ulcer is again stable measuring 3.5 cm (image 87, series 7). Arch Branches: The visualized proximal great vessels are patent and demonstrate scattered atheromatous changes. ----- Upper abdomen: Renal cysts and too small to characterized hypodensities. The remaining visualized upper abdomen is otherwise grossly unremarkable. RADIOLOGY Gregor Morelos MD - 03/07/2024 EXAM: CT ANGIO CHEST (NONCORONARY), 03/07/2024 08:21 AM CLINICAL INDICATIONS: descending thoracic aortic JOAQUINA; COMPARISON: Compared to prior study dated 09/14/2023. TECHNIQUE: The imaging was performed using a MDCT system. It included a spiral acquisition from the shoulders to the upper abdomen in order to assess the entire thoracic aorta and arch vessels, as well as suprarenal abdominal aorta. 3D reconstruction was performed on an independent workstation based on specific patient condition and were reviewed and approved by Gregor Morelos M.D.. CONTRAST: iohexol (OMNIPAQUE) 350 MG/ML injection 1-171 mL; Route of Administration: Intravenous; Dose: 70 mL. FINDINGS: Chest Wall: Degenerative changes of the thoracic spine Mediastinum: Normal, without adenopathy Kati: Normal, without adenopathy Pleural Spaces: Normal, without thickening/effusion or pneumothorax Lung Parenchyma: Upper lobe predominant emphysematous changes. No dominant mass or suspicious nodule. Cardiac: RCA stent. Normal pericardium, without thickening/effusion Pulmonary Arteries: Normal caliber. Inadequate opacification for intraluminal evaluation. --- -- Thoracic Aorta: Redemonstration of a broad-based saccular/mushroom-shaped penetrating atherosclerotic ulcer involving the left anterolateral aspect of the mid descending segment. Its neck again extends over an approximate distance of 3.5 cm (image 95, series 11).The overall aortic diameter at the level of the ulcer is again stable measuring 3.5 cm (image 87, series 7). Arch Branches: The visualized proximal great vessels are patent and demonstrate scattered atheromatous changes. --- -- Upper abdomen: Renal cysts and too small to characterized hypodensities. The remaining visualized upper abdomen is otherwise grossly unremarkable. IMPRESSION IMPRESSION: 1. Stable morphology and size of a large penetrating atherosclerotic ulcer involving the mid descending segment. 2. Stable additional ancillary findings as described above. [facility] Radiology Study observation (narrative) [facility] CT ANGIO CHEST (NONCORONARY) Ordered By: Gregor Morelos on 03-07-2024 [facility] Work Phone: CNPNon 02-27-2024 [facility] Telephone ([place] ) -------- AMIE RYAN ([id number]) 1960 F Date Time Provider Department 02/27/24 JUDI LEDEZMA During your visit today, we recorded the following information about you: Heath Parish LPN 02/27/2024 4:11 PM Signed . Allergies As of Date: 02/27/2024 Noted Allergy Reaction BETA-BLOCKERS (BETA-ADRENERGIC BL*02/27/2024 14 - Other: See Comments Comments: Wolfgang phenom Date Reviewed: 06/25/2019 Reviewed by: Radha Joseph ([place]) - Fully Assessed Reason for Visit: Abstract [2] Prescriptions as of 03/08/2024 - cholecalciferol (VITAMIN D) 1,000 unit tab tablet Take 1,000 Units by mouth once daily. - amLODIPine (NORVASC) 10 mg tablet Take 10 mg by mouth once daily. - atorvastatin (LIPITOR) 40 mg tablet Take 1 tablet by mouth every afternoon. - losartan (COZAAR) 50 mg tablet Take 50 mg by mouth once daily. - aspirin, enteric coated (ASPIRIN, ENTERIC COATED) 81 mg EC tablet Take 81 mg by mouth once daily. - clopidogrel (PLAVIX) 75 mg tablet Take 75 mg by mouth once daily. - ferrous sulfate (FEROSUL) 325 mg (65 mg iron) tablet Take 325 mg by mouth every other day. - fluticasone (FLONASE) 50 mcg/actuation nasal spray Use 2 Sprays in each nostril once daily. Rinse mouth after use. - cyclobenzaprine 10 mg tablet Take 10 mg by mouth once daily. Taking one tablet daily for spasm - Estradiol (VIVELLE-DOT) 0.0375 mg/24 hr TWICE WEEKLY - FOLIC ACID 400 MCG TAB take three tablets daily = 1200 mcg - CALCIUM 500 MG TAB Take one(1) tablet two(2) times daily. - DAILY MULTIPLE TAB Problem List As Of Date 02/27/2024 Noted Resolved Colitis [K52.9] 12/14/2011 Encounter Status:Closed by HEATH PARISH on 03/08/24 [facility] Absolute lymphocyte countOrd ered By: Renato Bonilla on 10-21-2023 Lymphocytes Auto (Unsp spec) [#/Vol] 1.54 10*3/uL 0.83-4.51 [facility] Automated lymphocyte count a s percentage of total leukocytesOrdered By: Renato Bonilla on 10-21-2023 Lymphocytes/100 WBC Auto (Unsp spec) 32.7 % 19-41 [facility] Basophil percentageOrdered B y: Renato Bonilla on 10-21-2023 Basophils/100 WBC (Bld) 0.6 % 0-1 [facility] Bilirubin [Mass/Vol] 0.40 mg/dL 0.20-1.00 [facility] Comment on above: For patients on eltr ombopag therapy, use of Dimension [place] TBIL is not recommended. Chloride [Moles/Vol] 106 mmol/L 98-107 [facility] Cholesterol [Mass/Vol] 139 mg/dL <200 [facility] Comment on above: <200 mg/dL Desirable 200-240 mg/dL Borderline >240 mg/dL High Risk Eosinophils/100 WBC (Bld) 2.1 % 0-5 [facility] Glucose [Mass/Vol] 89 mg/dL 74-106 [facility] Hemoglobin (Bld) [Mass/Vol] 12.1 g/dL 12.0-15.0 [facility] Monocytes/100 WBC (Bld) 14.2 % 0-10 [facility] Neutrophils (Bld) [#/Vol] 2.3 10*3/uL 2.0-7.7 [facility] Neutrophils/100 WBC (Bld) 48.9 % 47-70 [facility] Potassium [Moles/Vol] 4.1 mmol/L 3.5-5.1 [facility] Protein [Mass/Vol] 7.6 g/dL 6.4-8.2 [facility] Sodium [Moles/Vol] 139 mmol/L 136-145 [facility] Triglyceride [Mass/Vol] 71 mg/dL <199 [facility] Comment on above: The drugs N-Acetylcy steine and Metamizole may falsely depress this assay.Serum Triglycerides Reference Interval Normal <150 mg/dL Borderline high 150 - 199 mg/dL High 200 - 499 mg/dL Very High > or = 500 mg/dL WBC (Bld) [#/Vol] 4.7 10*3/uL 4.4-11.0 [facility] Determination of erythrocyte mean corpuscular volume (MCV)Ordered By: Renato Bonilla on 10-21-2023 MCV (RBC) [Entitic vol] 98.7 fL 81-99 [facility] Erythrocyte distribution wid th ratioOrdered By: Renato Bonilla on 10-21-2023 Erythrocyte distribution width (RBC) [Ratio] 12.1 % 11.6-14.6 [facility] Erythrocyte distribution wid th standard deviationOrdered By: Renato Bonilla on 10-21-2023 Erythrocyte distribution width (RBC) [Entitic vol] 44.0 fL 35.1-43.9 [facility] Hematocrit Auto (Bld) [Volum e fraction]Ordered By: Rneato Bonilla on 10-21-2023 Hematocrit (Bld) [Volume fraction] 36.6 % 37-47 [facility] Immature granulocytes/100 WB C Auto (Bld)Ordered By: Renato Bonilla on 10-21-2023 Immature granulocytes/100 WBC (Bld) 1.500 % 0.0-0.9 [facility] Comment on above: IG% - Immature Granu locytes (promyelocytes, myelocytes and metamyelocytes) > 1% indicates that a LEFT SHIFT is Present. Laboratory - Chemistry and C hemistry - challengeOrdered By: Renato Bonilla on 10-21-2023 Albumin/Globulin [Mass ratio] 1.1 {ratio} 0.9-2.4 [facility] ALP [Catalytic activity/Vol] 103 U/L 45-117 [facility] ALT [Catalytic activity/Vol] 20 U/L 13-56 [facility] Cholesterol in HDL [Mass/Vol] 89 mg/dL >40 [facility] Comment on above: The drugs N-Acetylcy steine and Metamizole may falsely depress this assay. Reference Range HDL <40 mg/dL Low HDL Cholesterol HDL >or= 60 mg/dL High HDL Cholesterol Cholesterol in LDL [Mass/Vol] 36 mg/dL 0-130 [facility] CO2 [Moles/Vol] 25.0 mmol/L 21.0-32.0 [facility] Globulin (S) [Mass/Vol] 3.7 g/dL 2.2-4.2 [facility] Urea nitrogen/Creatinine [Mass ratio] 17.8 mg/mg 10-20 [facility] - Hematology and Cell countsOrdered By: Renato Chad on 10-21-2023 MCH (RBC) [Entitic mass] 32.6 pg 27.0-32.0 [facility] MCHC (RBC) [Mass/Vol] 33.1 g/dL 32-36 [facility] Nucleated RBC/100 WBC (Bld) [Ratio] 0 % 0-5 [facility] Platelet mean volume (Bld) [Entitic vol] 9.0 fL 6.2-12.0 [facility] Platelets (Bld) [#/Vol] 291 10*3/uL 150-450 [facility] No Panel InformationOrdered By: Renato Bonilla on 10-21-2023 Estimated GFR (MDRD) Amer 77 mL/min >60 [facility] Comment on above: GFR Calc Estimated GFR (MDRD) Non-Af Amer 63 mL/min >60 [facility] Comment on above: Non- GFR Calc VLDL Cholesterol 14 mg/dL 5-40 [facility] RBC Auto (Bld) [#/Vol]Ordere d By: Renato Bonilla on 10-21-2023 RBC (Bld) [#/Vol] 3.71 10*6/uL 4.2-5.4 [facility] Serum or plasma calcium tejas urement (mass/volume)Ordered By: Renato Bonilla on 10-21-2023 Calcium [Mass/Vol] 9.0 mg/dL 8.5-10.1 [facility] Serum or plasma creatinine m easurement (mass/volume)Ordered By: Renato Bonilla on 10-21-2023 Creatinine [Mass/Vol] 0.95 mg/dL 0.55-1.02 [facility] Comment on above: The validity of the calculated GFR & GFRAA in patients over 70 years has not been determined. Clinical correlation is essential. Serum or plasma thyroid stim ulating hormone (TSH) measurement (units/volume)Ordered By: Renato Bonilla on 10-21-2023 TSH Qn 0.71 uIU/mL 0.358-3.74 [facility] Serum or plasma urea nitroge n measurement (mass/volume)Ordered By: Renato Bonilla on 10-21-2023 Urea nitrogen [Mass/Vol] 17 mg/dL 7-18 [facility] Thin prep Papanicolaou smear with manual screeningOrdered By: Renato Bonilla on 10-21-2023 Thin prep Papanicolaou smear with manual screening 3.9 g/dL 3.2-5.0 [facility] Thin prep Papanicolaou smear with manual screening 24 U/L 15-37 [facility] Thin prep Papanicolaou smear with manual screening 8 5-15 [facility] Basophil percentageOrdered B y: Jeff Wray on 09-19-2023 Chloride [Moles/Vol] 109 mmol/L 98-107 [facility] Glucose [Mass/Vol] 91 mg/dL 74-106 [facility] Hemoglobin (Bld) [Mass/Vol] 11.9 g/dL 12.0-15.0 [facility] Potassium [Moles/Vol] 4.2 mmol/L 3.5-5.1 [facility] Sodium [Moles/Vol] 140 mmol/L 136-145 [facility] WBC (Bld) [#/Vol] 3.5 10*3/uL 4.4-11.0 [facility] Determination of erythrocyte mean corpuscular volume (MCV)Ordered By: Jeff rWay on 09-19-2023 MCV (RBC) [Entitic vol] 98.2 fL 81-99 [facility] Erythrocyte distribution wid th ratioOrdered By: Jeffjohnnie Wray on 09-19-2023 Erythrocyte distribution width (RBC) [Ratio] 13.3 % 11.6-14.6 [facility] Erythrocyte distribution wid th standard deviationOrdered By: Jeffjohnnie Wray on 09-19-2023 Erythrocyte distribution width (RBC) [Entitic vol] 47.4 fL 35.1-43.9 [facility] Hematocrit Auto (Bld) [Volum e fraction]Ordered By: Jeffjohnnie Wray on 09-19-2023 Hematocrit (Bld) [Volume fraction] 38.0 % 37-47 [facility] Laboratory - Chemistry and C hemistry - challengeOrdered By: Jeff Wray on 09-19-2023 CO2 [Moles/Vol] 27.0 mmol/L 21.0-32.0 [facility] Urea nitrogen/Creatinine [Mass ratio] 17.4 mg/mg 10-20 [facility] Laboratory - Hematology and Cell countsOrdered By: Jeff Wray on 09-19-2023 MCH (RBC) [Entitic mass] 30.7 pg 27.0-32.0 [facility] MCHC (RBC) [Mass/Vol] 31.3 g/dL 32-36 [facility] Platelet mean volume (Bld) [Entitic vol] 8.8 fL 6.2-12.0 [facility] Platelets (Bld) [#/Vol] 299 10*3/uL 150-450 [facility] No Panel InformationOrdered By: Jeff Wray on 09-19-2023 Estimated GFR (MDRD) Amer 74 mL/min >60 [facility] Comment on above: GFR Calc Estimated GFR (MDRD) Non-Af Amer 61 mL/min >60 [facility] Comment on above: Non- GFR Calc RBC Auto (Bld) [#/Vol]Ordere d By: Jeff Wray on 09-19-2023 RBC (Bld) [#/Vol] 3.87 10*6/uL 4.2-5.4 [facility] Serum or plasma calcium tejas urement (mass/volume)Ordered By: Jeff Wray on 09-19-2023 Calcium [Mass/Vol] 9.4 mg/dL 8.5-10.1 [facility] Serum or plasma creatinine m easurement (mass/volume)Ordered By: Jeff Wray on 09-19-2023 Creatinine [Mass/Vol] 0.98 mg/dL 0.55-1.02 [facility] Comment on above: The validity of the calculated GFR & GFRAA in patients over 70 years has not been determined. Clinical correlation is essential. Serum or plasma urea nitroge n measurement (mass/volume)Ordered By: Jeff Wray on 09-19-2023 Urea nitrogen [Mass/Vol] 17 mg/dL 7-18 [facility] Thin prep Papanicolaou smear with manual screeningOrdered By: Jeff Wray on 09-19-2023 Thin prep Papanicolaou smear with manual screening 4 5-15 [facility] CREAT/GFRon 09-14-2023 Creatinine [Mass/Vol] 0.63 mg/dL 0.50 - 1.20 mg/dL [facility] GFR/1.73 sq M.predicted CKD-EPI (S/P/Bld) [Vol rate/Area] - PINF [facility] Comment on above: Reported eGFR is bas ed on the CKD-EPI 2020 equation using creatinine, age, and sex. Interpretation and review of laboratory results Normal [facility] Test performed at address of the patient encounter. [facility] CT Chest and Abdomen and Pel vis WO and W contrast Kota 09-14-2023 IMPRESSION: 1. Stable appearance and dimensions of large deep penetrating atherosclerotic ulcer within the mid descending segment. 2. Other ancillary findings are noted as above. OLOGY EXAM: CT ANEURYSM ST UDY WITH AND WITHOUT CONTRAST CHEST/ABDOMEN/PELVIS, 09/14/2023 08:18 AM CLINICAL INDICATION: Penetrating aortic ulcer; COMPARISON: June 08, 2023 TECHNIQUE: The imaging was performed using a MDCT system. It included a spiral acquisition from the shoulders to the upper thighs in order to assess the entire thoracic aorta and arch branches, abdominal aorta and branches, and iliac arteries. 3D reconstruction was performed on an independent workstation based on specific patient condition and were reviewed and approved by Ivan Pimentel MD. CONTRAST: iohexol (OMNIPAQUE) 350 MG/ML injection 1-171 mL; Route of Administration: Intravenous; Dose: 70 mL. FINDINGS: Chest Wall: Degenerative changes of the thoracic spine Mediastinum: Normal, without adenopathy Kati: Normal, without adenopathy Pleural Spaces: Normal, without thickening/effusion or pneumothorax Lung Parenchyma: Mild emphysematous changes. No consolidation or mass. Pericardium: Normal, without thickening/effusion ----- Atria: Normal, without thrombus Right Ventricle: Normal Left Ventricle: Normal Coronary Arteries: RCA stent. Valves: Normal Pulmonary Arteries: Normal ----- Thoracic Aorta: Grossly stable broad-based saccular/mushroom-shaped penetrating atherosclerotic ulcer seen noted at the left anterolateral aspect of the mid descending segment. Its neck extends over an approximate distance of 3.5 cm and measures 19 mm in depth (series 11, image 92). The overall aortic diameter measures 3.5 cm at that location. Arch Branches: Normal ----- Abdominal Aorta: Mild atherosclerosis. Normal dimensions. Abdominal Aortic Branches: Atherosclerosis without significant stenoses Iliac Arterial System: Atherosclerosis without significant stenoses ----- Liver: Normal Biliary System: Normal Pancreas: Normal Spleen: Normal Kidneys: Small left renal cyst. Other subcentimeter hypodensities are too small to characterize. Adrenal Glands: Normal Bowels: Normal Retroperitoneum: Normal Pelvic Structures: Hysterectomy Abdominal and Pelvic Wall: Multilevel degenerative changes. RADIOLOGY Ivan Pimentel M D - 09/14/2023 EXAM: CT ANEURYSM STUDY WITH AND WITHOUT CONTRAST CHEST/ABDOMEN/PELVIS, 09/14/2023 08:18 AM CLINICAL INDICATION: Penetrating aortic ulcer; COMPARISON: June 08, 2023 TECHNIQUE: The imaging was performed using a MDCT system. It included a spiral acquisition from the shoulders to the upper thighs in order to assess the entire thoracic aorta and arch branches, abdominal aorta and branches, and iliac arteries. 3D reconstruction was performed on an independent workstation based on specific patient condition and were reviewed and approved by Ivan Pimentel MD. CONTRAST: iohexol (OMNIPAQUE) 350 MG/ML injection 1-171 mL; Route of Administration: Intravenous; Dose: 70 mL. FINDINGS: Chest Wall: Degenerative changes of the thoracic spine Mediastinum: Normal, without adenopathy Kati: Normal, without adenopathy Pleural Spaces: Normal, without thickening/effusion or pneumothorax Lung Parenchyma: Mild emphysematous changes. No consolidation or mass. Pericardium: Normal, without thickening/effusion --- -- Atria: Normal, without thrombus Right Ventricle: Normal Left Ventricle: Normal Coronary Arteries: RCA stent. Valves: Normal Pulmonary Arteries: Normal --- -- Thoracic Aorta: Grossly stable broad-based saccular/mushroom-shaped penetrating atherosclerotic ulcer seen noted at the left anterolateral aspect of the mid descending segment. Its neck extends over an approximate distance of 3.5 cm and measures 19 mm in depth (series 11, image 92). The overall aortic diameter measures 3.5 cm at that location. Arch Branches: Normal --- -- Abdominal Aorta: Mild atherosclerosis. Normal dimensions. Abdominal Aortic Branches: Atherosclerosis without significant stenoses Iliac Arterial System: Atherosclerosis without significant stenoses --- -- Liver: Normal Biliary System: Normal Pancreas: Normal Spleen: Normal Kidneys: Small left renal cyst. Other subcentimeter hypodensities are too small to characterize. Adrenal Glands: Normal Bowels: Normal Retroperitoneum: Normal Pelvic Structures: Hysterectomy Abdominal and Pelvic Wall: Multilevel degenerative changes. IMPRESSION IMPRESSION: 1. Stable appearance and dimensions of large deep penetrating atherosclerotic ulcer within the mid descending segment. 2. Other ancillary findings are noted as above. [facility] Radiology Study observation (narrative) [facility] CT Chest and Abdomen and Pel vis WO and W contrast IVOrdered By: Ivan Pimentel on 09-14-2023 [facility] Basophil percentageOrdered B y: Renato Bonilla on 08-01-2023 Chloride [Moles/Vol] 106 mmol/L 98-107 [facility] Glucose [Mass/Vol] 95 mg/dL 74-106 [facility] Potassium [Moles/Vol] 4.0 mmol/L 3.5-5.1 [facility] Sodium [Moles/Vol] 136 mmol/L 136-145 [facility] Laboratory - Chemistry and C hemistry - challengeOrdered By: Renato Bonilla on 08-01-2023 CO2 [Moles/Vol] 26.0 mmol/L 21.0-32.0 [facility] Urea nitrogen/Creatinine [Mass ratio] 23.8 mg/mg 10-20 [facility] No Panel InformationOrdered By: Renato Bonilla on 08-01-2023 Estimated GFR (MDRD) Amer 79 mL/min >60 [facility] Comment on above: GFR Calc Estimated GFR (MDRD) Non-Af Amer 66 mL/min >60 [facility] Comment on above: Non- GFR Calc Serum or plasma calcium tejas urement (mass/volume)Ordered By: Renato Bonilla on 08-01-2023 Calcium [Mass/Vol] 9.1 mg/dL 8.5-10.1 [facility] Serum or plasma creatinine m easurement (mass/volume)Ordered By: Renato Bonilla on 08-01-2023 Creatinine [Mass/Vol] 0.92 mg/dL 0.55-1.02 [facility] Comment on above: The validity of the calculated GFR & GFRAA in patients over 70 years has not been determined. Clinical correlation is essential. Serum or plasma urea nitroge n measurement (mass/volume)Ordered By: Renato Bonilla on 08-01-2023 Urea nitrogen [Mass/Vol] 22 mg/dL 7-18 [facility] Thin prep Papanicolaou smear with manual screeningOrdered By: Renato Bonilla on 08-01-2023 Thin prep Papanicolaou smear with manual screening 4 5-15 [facility] Absolute lymphocyte countOrd ered By: Lubna Horton on 07-27-2023 Lymphocytes Auto (Unsp spec) [#/Vol] 1.72 10*3/uL 0.83-4.51 [facility] Automated lymphocyte count a s percentage of total leukocytesOrdered By: Lubna Horton on 07-27-2023 Lymphocytes/100 WBC Auto (Unsp spec) 45.3 % 19-41 [facility] Basophil percentageOrdered B y: Erik Hylton on 07-27-2023 Basophil percentage 3.3 mg/dL 2.5-4.9 [facility] Basophil percentageOrdered B y: Lubna Clifford on 07-27-2023 Basophils/100 WBC (Bld) 0.5 % 0-1 [facility] Bilirubin [Mass/Vol] 0.20 mg/dL 0.20-1.00 [facility] Comment on above: For patients on eltr ombopag therapy, use of Dimension [place] TBIL is not recommended. Chloride [Moles/Vol] 111 mmol/L 98-107 [facility] Cholesterol [Mass/Vol] 164 mg/dL <200 [facility] Comment on above: <200 mg/dL Desirable 200-240 mg/dL Borderline >240 mg/dL High Risk Eosinophils/100 WBC (Bld) 2.4 % 0-5 [facility] Glucose [Mass/Vol] 113 mg/dL 74-106 [facility] Comment on above: Fasting Glucose resu lt from 100 to 125 mg/dL suggests IMPAIRED HOMEOSTASIS per A.D.A. criteria. Hemoglobin (Bld) [Mass/Vol] 11.8 g/dL 12.0-15.0 [facility] Monocytes/100 WBC (Bld) 10.3 % 0-10 [facility] Neutrophils (Bld) [#/Vol] 1.6 10*3/uL 2.0-7.7 [facility] Neutrophils/100 WBC (Bld) 41.2 % 47-70 [facility] Potassium [Moles/Vol] 3.4 mmol/L 3.5-5.1 [facility] Protein [Mass/Vol] 6.8 g/dL 6.4-8.2 [facility] Sodium [Moles/Vol] 140 mmol/L 136-145 [facility] Triglyceride [Mass/Vol] 76 mg/dL <199 [facility] Comment on above: The drugs N-Acetylcy steine and Metamizole may falsely depress this assay.Serum Triglycerides Reference Interval Normal <150 mg/dL Borderline high 150 - 199 mg/dL High 200 - 499 mg/dL Very High > or = 500 mg/dL WBC (Bld) [#/Vol] 3.8 10*3/uL 4.4-11.0 [facility] Determination of erythrocyte mean corpuscular volume (MCV)Ordered By: Lubna Horton on 07-27-2023 MCV (RBC) [Entitic vol] 95.4 fL 81-99 [facility] Erythrocyte distribution wid th ratioOrdered By: Lubna Clifford on 07-27-2023 Erythrocyte distribution width (RBC) [Ratio] 12.0 % 11.6-14.6 [facility] Erythrocyte distribution wid th standard deviationOrdered By: Clifford 07-27-2023 Erythrocyte distribution width (RBC) [Entitic vol] 42.3 fL 35.1-43.9 [facility] Hematocrit Auto (Bld) [Volum e fraction]Ordered By: Lubna Clifford 07-27-2023 Hematocrit (Bld) [Volume fraction] 35.4 % 37-47 [facility] High density lipoprotein (HD L) measurementOrdered By: Lubna Clifford on 07-27-2023 Cholesterol in HDL (Body fld) [Mass/Vol] 102 mg/dL >40 [facility] Comment on above: The drugs N-Acetylcy steine and Metamizole may falsely depress this assay. Reference Range HDL <40 mg/dL Low HDL Cholesterol HDL >or= 60 mg/dL High HDL Cholesterol Immature granulocytes/100 WB C Auto (Bld)Ordered By: Lubna Horton on 07-27-2023 Immature granulocytes/100 WBC (Bld) 0.300 % 0.0-0.9 [facility] Comment on above: IG% - Immature Granu locytes (promyelocytes, myelocytes and metamyelocytes) > 1% indicates that a LEFT SHIFT is Present. Laboratory - Chemistry and C hemistry - challengeOrdered By: Lubna Horton on 07-27-2023 Albumin/Globulin [Mass ratio] 1.3 {ratio} 0.9-2.4 [facility] ALP [Catalytic activity/Vol] 114 U/L 45-117 [facility] ALT [Catalytic activity/Vol] 29 U/L 13-56 [facility] CO2 [Moles/Vol] 26.0 mmol/L 21.0-32.0 [facility] Globulin (S) [Mass/Vol] 3.0 g/dL 2.2-4.2 [facility] Urea nitrogen/Creatinine [Mass ratio] 21.2 mg/mg 10-20 [facility] Laboratory - Hematology and Cell countsOrdered By: Lubna Horton on 07-27-2023 MCH (RBC) [Entitic mass] 31.8 pg 27.0-32.0 [facility] MCHC (RBC) [Mass/Vol] 33.3 g/dL 32-36 [facility] Nucleated RBC/100 WBC (Bld) [Ratio] 0 % 0-5 [facility] Platelets (Bld) [#/Vol] 211 10*3/uL 150-450 [facility] Low density lipoprotein (LDL ) cholesterol measurementOrdered By: Lubna Horton on 07-27-2023 Cholesterol in LDL (Body fld) [Moles/Vol] 47 mg/dL 0-130 [facility] No Panel InformationOrdered By: Lubna Horton on 07-27-2023 Estimated Creatinine Clearance Calc 57.40 ml/min [facility] Estimated GFR (MDRD) Amer 82 mL/min >60 [facility] Comment on above: GFR Calc Estimated GFR (MDRD) Non-Af Amer 68 mL/min >60 [facility] Comment on above: Non- GFR Calc Troponin I High Sensitivity 12 pg/mL 3.0-54.0 [facility] Comment on above: Please Note: [place] t Units and Gender Specific Reference Ranges. For more information see Policy Stat Procedure [place] High Sensitivity Troponin (TNIH) and attachments. Platelet mean volume Amadou-Ec ker (Bld) [Entitic vol]Ordered By: Lubna Horton on 07-27-2023 Platelet mean volume (Bld) [Entitic vol] 8.7 fL 6.2-12.0 [facility] RBC Auto (Bld) [#/Vol]Ordere d By: Lubna Horton on 07-27-2023 RBC (Bld) [#/Vol] 3.71 10*6/uL 4.2-5.4 [facility] Serum or plasma calcium tejas urement (mass/volume)Ordered By: Lubna Horton on 07-27-2023 Calcium [Mass/Vol] 8.9 mg/dL 8.5-10.1 [facility] Serum or plasma creatinine m easurement (mass/volume)Ordered By: Lubna Horton on 07-27-2023 Creatinine [Mass/Vol] 0.90 mg/dL 0.55-1.02 [facility] Comment on above: The validity of the calculated GFR & GFRAA in patients over 70 years has not been determined. Clinical correlation is essential. Serum or plasma urea nitroge n measurement (mass/volume)Ordered By: Lubna Horton on 07-27-2023 Urea nitrogen [Mass/Vol] 19 mg/dL 7-18 [facility] Thin prep Papanicolaou smear with manual screeningOrdered By: Lubna Horton on 07-27-2023 Thin prep Papanicolaou smear with manual screening 3.8 g/dL 3.2-5.0 [facility] Thin prep Papanicolaou smear with manual screening 27 U/L 15-37 [facility] Thin prep Papanicolaou smear with manual screening 3 5-15 [facility] Very low density lipoprotein (VLDL) cholesterol measurementOrdered By: Lubna Horton on 07-27-2023 Cholesterol in VLDL Calc [Moles/Vol] 15 mg/dL 5-40 [facility] Laboratory - Chemistry and C hemistry - challengeOrdered By: Lubna Horton on 07-26-2023 Magnesium [Mass/Vol] 2.5 mg/dL 1.6-2.6 [facility] Thin prep Papanicolaou smear with manual screeningOrdered By: ED PROVIDER on 07-26-2023 Thin prep Papanicolaou smear with manual screening 79 mg/dL 74-106 [facility] Comment on above: MANAGEMENT OF PATIEN T CARE PER NURSING PROTOCOL Absolute lymphocyte countOrd ered By: Jeff Wray on 07-17-2023 Lymphocytes Auto (Unsp spec) [#/Vol] 1.77 10*3/uL 0.83-4.51 [facility] Basophil percentageOrdered B y: Jeff Wray on 07-17-2023 Basophils/100 WBC (Bld) 0.4 % 0-1 [facility] Eosinophils/100 WBC (Bld) 1.3 % 0-5 [facility] Neutrophils (Bld) [#/Vol] 2.5 10*3/uL 2.0-7.7 [facility] Neutrophils/100 WBC (Bld) 52.4 % 47-70 [facility] WBC (Bld) [#/Vol] 4.8 10*3/uL 4.4-11.0 [facility] Blood erythrocytes count (nu mber/volume)Ordered By: Jeff Wray on 07-17-2023 RBC (Bld) [#/Vol] 3.88 10*6/uL 4.2-5.4 [facility] Blood hemoglobin measurement (mass/volume)Ordered By: Jeff Wray on 07-17-2023 Hemoglobin (Bld) [Mass/Vol] 12.3 g/dL 12.0-15.0 [facility] Blood lymphocytes/100 leukoc ytesOrdered By: Jeff Wray on 07-17-2023 Lymphocytes/100 WBC (Bld) 37.3 % 19-41 [facility] Blood monocytes/100 leukocyt esOrdered By: Jeff Wray on 07-17-2023 Monocytes/100 WBC (Bld) 8.4 % 0-10 [facility] Blood platelet mean volumeOr dered By: Jeff Wray on 07-17-2023 Platelet mean volume (Bld) [Entitic vol] 8.9 fL 6.2-12.0 [facility] Determination of erythrocyte mean corpuscular volume (MCV)Ordered By: Jeff Wray on 07-17-2023 MCV (RBC) [Entitic vol] 95.9 fL 81-99 [facility] Hematocrit Auto (Bld) [Volum e fraction]Ordered By: Jeff Wray on 01-15-2024 Hematocrit (Bld) [Volume fraction] 37.2 % 37-47 [facility] Laboratory - Hematology and Cell countsOrdered By: Jeff Wray on 07-17-2023 Erythrocyte distribution width (RBC) [Entitic vol] 41.6 fL 35.1-43.9 [facility] Erythrocyte distribution width (RBC) [Ratio] 11.9 % 11.6-14.6 [facility] Immature granulocytes/100 WBC (Bld) 0.200 % 0.0-0.9 [facility] Comment on above: IG% - Immature Granu locytes (promyelocytes, myelocytes and metamyelocytes) > 1% indicates that a LEFT SHIFT is Present. MCH (RBC) [Entitic mass] 31.7 pg 27.0-32.0 [facility] Nucleated RBC/100 WBC (Bld) [Ratio] 0 % 0-5 [facility] MCHC Auto (RBC) [Mass/Vol]Or dered By: Jeff Wray on 07-17-2023 MCHC (RBC) [Mass/Vol] 33.1 g/dL 32-36 [facility] Platelets bldOrdered By: Rosa Wray on 07-17-2023 Platelets (Bld) [#/Vol] 238 10*3/uL 150-450 [facility] Basophil percentageOrdered B y: Angy Bryan on 06-29-2023 Chloride [Moles/Vol] 108 mmol/L 98-107 [facility] Glucose [Mass/Vol] 92 mg/dL 74-106 [facility] Potassium [Moles/Vol] 4.5 mmol/L 3.5-5.1 [facility] Sodium [Moles/Vol] 142 mmol/L 136-145 [facility] Laboratory - Chemistry and C hemistry - challengeOrdered By: Angy Bryan on 06-29-2023 CO2 [Moles/Vol] 28.0 mmol/L 21.0-32.0 [facility] Urea nitrogen/Creatinine [Mass ratio] 18.6 mg/mg 10-20 [facility] No Panel InformationOrdered By: Angy Byran on 06-29-2023 Estimated GFR (MDRD) Amer 81 mL/min >60 [facility] Comment on above: GFR Calc Estimated GFR (MDRD) Non-Af Amer 67 mL/min >60 [facility] Comment on above: Non- GFR Calc Serum or plasma calcium tejas urement (mass/volume)Ordered By: Angy Bryan on 06-29-2023 Calcium [Mass/Vol] 9.1 mg/dL 8.5-10.1 [facility] Serum or plasma creatinine m easurement (mass/volume)Ordered By: Angy Bryan on 06-29-2023 Creatinine [Mass/Vol] 0.91 mg/dL 0.55-1.02 [facility] Comment on above: The validity of the calculated GFR & GFRAA in patients over 70 years has not been determined. Clinical correlation is essential. Serum or plasma urea nitroge n measurement (mass/volume)Ordered By: Angy Bryan on 06-29-2023 Urea nitrogen [Mass/Vol] 17 mg/dL 7-18 [facility] Thin prep Papanicolaou smear with manual screeningOrdered By: Angy Bryan on 06-29-2023 Thin prep Papanicolaou smear with manual screening 6 5-15 [facility] Basophil percentageOrdered B y: Oly Holloway on 06-16-2023 Bilirubin [Mass/Vol] 0.30 mg/dL 0.20-1.00 [facility] Comment on above: For patients on eltr ombopag therapy, use of Dimension [place] TBIL is not recommended. Chloride [Moles/Vol] 110 mmol/L 98-107 [facility] Glucose [Mass/Vol] 90 mg/dL 74-106 [facility] Potassium [Moles/Vol] 4.1 mmol/L 3.5-5.1 [facility] Protein [Mass/Vol] 6.9 g/dL 6.4-8.2 [facility] Sodium [Moles/Vol] 143 mmol/L 136-145 [facility] WBC (Bld) [#/Vol] 3.9 10*3/uL 4.4-11.0 [facility] Blood erythrocytes count (nu mber/volume)Ordered By: Oly Holloway on 06-16-2023 RBC (Bld) [#/Vol] 3.99 10*6/uL 4.2-5.4 [facility] Blood hemoglobin measurement (mass/volume)Ordered By: Oly Holloway on 06-16-2023 Hemoglobin (Bld) [Mass/Vol] 12.6 g/dL 12.0-15.0 [facility] Blood platelet mean volumeOr dered By: Oly Holloway on 06-16-2023 Platelet mean volume (Bld) [Entitic vol] 9.3 fL 6.2-12.0 [facility] Determination of erythrocyte mean corpuscular volume (MCV)Ordered By: Oly Holloway on 06-16-2023 MCV (RBC) [Entitic vol] 98.5 fL 81-99 [facility] Hematocrit Auto (Bld) [Volum e fraction]Ordered By: Oly Holloway on 06-16-2023 Hematocrit (Bld) [Volume fraction] 39.3 % 37-47 [facility] Laboratory - Chemistry and C hemistry - challengeOrdered By: Oly Holloway on 06-16-2023 ALP [Catalytic activity/Vol] 83 U/L 45-117 [facility] ALT [Catalytic activity/Vol] 28 U/L 13-56 [facility] CO2 [Moles/Vol] 28.0 mmol/L 21.0-32.0 [facility] Globulin (S) [Mass/Vol] 3.3 g/dL 2.2-4.2 [facility] Urea nitrogen/Creatinine [Mass ratio] 17.6 mg/mg 10-20 [facility] Laboratory - Hematology and Cell countsOrdered By: Oly Holloway on 06-16-2023 Erythrocyte distribution width (RBC) [Entitic vol] 43.8 fL 35.1-43.9 [facility] Erythrocyte distribution width (RBC) [Ratio] 12.0 % 11.6-14.6 [facility] MCH (RBC) [Entitic mass] 31.6 pg 27.0-32.0 [facility] MCHC Auto (RBC) [Mass/Vol]Or dered By: Oly Holloway on 06-16-2023 MCHC (RBC) [Mass/Vol] 32.1 g/dL 32-36 [facility] No Panel InformationOrdered By: Oly Holloway on 06-16-2023 Estimated Creatinine Clearance Calc 64.58 ml/min [facility] Estimated GFR (MDRD) Amer 94 mL/min >60 [facility] Comment on above: GFR Calc Estimated GFR (MDRD) Non-Af Amer 78 mL/min >60 [facility] Comment on above: Non- GFR Calc Platelets bldOrdered By: Chaz Holloway on 06-16-2023 Platelets (Bld) [#/Vol] 214 10*3/uL 150-450 [facility] Serum or plasma albumin tejas urement (mass/volume)Ordered By: Oly Holloway on 06-16-2023 Albumin [Mass/Vol] 3.6 g/dL 3.2-5.0 [facility] Serum or plasma albumin/glob ulin mass ratioOrdered By: Oly Holloway on 06-16-2023 Albumin/Globulin [Mass ratio] 1.1 {ratio} 0.9-2.4 [facility] Serum or plasma calcium tejas urement (mass/volume)Ordered By: Oly Holloway on 06-16-2023 Calcium [Mass/Vol] 8.8 mg/dL 8.5-10.1 [facility] Serum or plasma creatinine m easurement (mass/volume)Ordered By: Oly Holloway on 06-16-2023 Creatinine [Mass/Vol] 0.80 mg/dL 0.55-1.02 [facility] Comment on above: The validity of the calculated GFR & GFRAA in patients over 70 years has not been determined. Clinical correlation is essential. Serum or plasma urea nitroge n measurement (mass/volume)Ordered By: Oly Holloway on 06-16-2023 Urea nitrogen [Mass/Vol] 14 mg/dL 7-18 [facility] Thin prep Papanicolaou smear with manual screeningOrdered By: Oly Holloway on 06-16-2023 Thin prep Papanicolaou smear with manual screening 34 U/L 15-37 [facility] Thin prep Papanicolaou smear with manual screening 5 5-15 [facility] CREAT/GFRon 06-08-2023 Creatinine [Mass/Vol] 0.56 mg/dL 0.50 - 1.20 mg/dL [facility] GFR/1.73 sq M.predicted CKD-EPI (S/P/Bld) [Vol rate/Area] - PINF [facility] Comment on above: Reported eGFR is bas ed on the CKD-EPI 2020 equation using creatinine, age, and sex. Interpretation and review of laboratory results Normal [facility] Test performed at address of the patient encounter. [facility] CT Chest and Abdomen and Pel vis WO and W contrast Kota 06-08-2023 IMPRESSION: 1. Large, broad-based deep penetrating atherosclerotic ulcer within the mid descending segment, as described above. 2. Abdominal aortic dimensions are within normal limits. OLOGY EXAM: CT ANEURYSM ST UDY WITH AND WITHOUT CONTRAST CHEST/ABDOMEN/PELVIS, 06/08/2023 10:04 AM CLINICAL INDICATION: AAA; COMPARISON: April 30, 2023 TECHNIQUE: The imaging was performed using a MDCT system. It included a spiral acquisition from the shoulders to the upper thighs in order to assess the entire thoracic aorta and arch branches, abdominal aorta and branches, and iliac arteries. 3D reconstruction was performed on an independent workstation based on specific patient condition and were reviewed and approved by Ivan Pimentel MD. CONTRAST: iohexol (OMNIPAQUE) 350 MG/ML injection 1-171 mL; Route of Administration: Intravenous; Dose: 70 mL. FINDINGS: Chest Wall: Degenerative changes of the thoracic spine Mediastinum: Normal, without adenopathy Kati: Normal, without adenopathy Pleural Spaces: Normal, without thickening/effusion or pneumothorax Lung Parenchyma: Mild emphysematous changes. No consolidation or mass. Pericardium: Normal, without thickening/effusion ----- Atria: Normal, without thrombus Right Ventricle: Normal Left Ventricle: Normal Coronary Arteries: Mild coronary calcification. Valves: Normal Pulmonary Arteries: Normal ----- Thoracic Aorta: Broad-based saccular/mushroom-shaped outpouching extending beyond the aortic contour at the left anterolateral aspect of the mid descending segment, suggestive of large deep penetrating atherosclerotic ulcer. It extends over an approximate distance of 3.6 cm and measures 19 mm in depth (series 11, image 103). Root: Diameter - 37 mm Sino-Tubular Junction: effaced Mid-Ascending Segment = No atherosclerosis; 37 mm Proximal Arch = No atherosclerosis, 31 mm Distal Arch = Mild atherosclerosis, 29 mm Isthmus = No atherosclerosis, 27 mm Mid-Descending Segment = large penetrating atherosclerotic ulcer as described above. 35 mm. Diaphragm Level = Mild atherosclerosis, 25 mm Arch Branches: Normal ----- Abdominal Aorta: Suprarenal Segment = Mild atherosclerosis, 25 mm Renal Artery Level = Mild atherosclerosis, 21 mm Infrarenal Segment = Mild atherosclerosis, 21 mm Abdominal Aortic Branches: Atherosclerosis without significant stenoses Iliac Arterial System: Atherosclerosis without significant stenoses ----- Liver: Normal Biliary System: Normal Pancreas: Normal Spleen: Normal Kidneys: Small left renal cyst, and other subcentimeter hypodensities, too small to characterize. Adrenal Glands: Normal Bowels: Normal Retroperitoneum: Normal Pelvic Structures: Hysterectomy Abdominal and Pelvic Wall: Multilevel degenerative changes. RADIOLOGY Ivan Pimentel MB/SHERRIE - 06/08/2023 EXAM: CT ANEURYSM STUDY WITH AND WITHOUT CONTRAST CHEST/ABDOMEN/PELVIS, 06/08/2023 10:04 AM CLINICAL INDICATION: AAA; COMPARISON: April 30, 2023 TECHNIQUE: The imaging was performed using a MDCT system. It included a spiral acquisition from the shoulders to the upper thighs in order to assess the entire thoracic aorta and arch branches, abdominal aorta and branches, and iliac arteries. 3D reconstruction was performed on an independent workstation based on specific patient condition and were reviewed and approved by Ivan Pimentel MD. CONTRAST: iohexol (OMNIPAQUE) 350 MG/ML injection 1-171 mL; Route of Administration: Intravenous; Dose: 70 mL. FINDINGS: Chest Wall: Degenerative changes of the thoracic spine Mediastinum: Normal, without adenopathy Kati: Normal, without adenopathy Pleural Spaces: Normal, without thickening/effusion or pneumothorax Lung Parenchyma: Mild emphysematous changes. No consolidation or mass. Pericardium: Normal, without thickening/effusion --- -- Atria: Normal, without thrombus Right Ventricle: Normal Left Ventricle: Normal Coronary Arteries: Mild coronary calcification. Valves: Normal Pulmonary Arteries: Normal --- -- Thoracic Aorta: Broad-based saccular/mushroom-shaped outpouching extending beyond the aortic contour at the left anterolateral aspect of the mid descending segment, suggestive of large deep penetrating atherosclerotic ulcer. It extends over an approximate distance of 3.6 cm and measures 19 mm in depth (series 11, image 103). Root: Diameter - 37 mm Sino-Tubular Junction: effaced Mid-Ascending Segment = No atherosclerosis; 37 mm Proximal Arch = No atherosclerosis, 31 mm Distal Arch = Mild atherosclerosis, 29 mm Isthmus = No atherosclerosis, 27 mm Mid-Descending Segment = large penetrating atherosclerotic ulcer as described above. 35 mm. Diaphragm Level = Mild atherosclerosis, 25 mm Arch Branches: Normal --- -- Abdominal Aorta: Suprarenal Segment = Mild atherosclerosis, 25 mm Renal Artery Level = Mild atherosclerosis, 21 mm Infrarenal Segment = Mild atherosclerosis, 21 mm Abdominal Aortic Branches: Atherosclerosis without significant stenoses Iliac Arterial System: Atherosclerosis without significant stenoses --- -- Liver: Normal Biliary System: Normal Pancreas: Normal Spleen: Normal Kidneys: Small left renal cyst, and other subcentimeter hypodensities, too small to characterize. Adrenal Glands: Normal Bowels: Normal Retroperitoneum: Normal Pelvic Structures: Hysterectomy Abdominal and Pelvic Wall: Multilevel degenerative changes. IMPRESSION IMPRESSION: 1. Large, broad-based deep penetrating atherosclerotic ulcer within the mid descending segment, as described above. 2. Abdominal aortic dimensions are within normal limits. [facility] Radiology Study [facility] (narrative[facility] WO and W contrast IVOrdered By: Ivan Pimentel on 06-08-2023 [facility] Basophil percentageOrdered B y: Jeff Nils on 06-05-2023 WBC (Bld) [#/Vol] 3.4 10*3/uL 4.4-11.0 [facility] Blood erythrocytes count (nu mber/volume)Ordered By: Jeff Wray on 06-05-2023 RBC (Bld) [#/Vol] 3.83 10*6/uL 4.2-5.4 [facility] Blood hemoglobin measurement (mass/volume)Ordered By: Jeff Wray on 06-05-2023 Hemoglobin (Bld) [Mass/Vol] 12.3 g/dL 12.0-15.0 [facility] Blood platelet mean volumeOr dered By: Jeff Wray on 06-05-2023 Platelet mean volume (Bld) [Entitic vol] 9.0 fL 6.2-12.0 [facility] Determination of erythrocyte mean corpuscular volume (MCV)Ordered By: Jeff Wray on 06-05-2023 MCV (RBC) [Entitic vol] 102.6 fL 81-99 [facility] Hematocrit Auto (Bld) [Volum e fraction]Ordered By: Jeff Wray on 06-05-2023 Hematocrit (Bld) [Volume fraction] 39.3 % 37-47 [facility] Laboratory - Hematology and Cell countsOrdered By: Jeffjohnnie Wray on 06-05-2023 Erythrocyte distribution width (RBC) [Entitic vol] 47.8 fL 35.1-43.9 [facility] Erythrocyte distribution width (RBC) [Ratio] 12.8 % 11.6-14.6 [facility] MCH (RBC) [Entitic mass] 32.1 pg 27.0-32.0 [facility] MCHC Auto (RBC) [Mass/Vol]Or dered By: Jeff Wray on 06-05-2023 MCHC (RBC) [Mass/Vol] 31.3 g/dL 32-36 [facility] Platelets bldOrdered By: Rosa Wray on 06-05-2023 Platelets (Bld) [#/Vol] 324 10*3/uL 150-450 [facility] Basophil percentageOrdered B y: Jeff Wray on 05-29-2023 Chloride [Moles/Vol] 106 mmol/L 98-107 [facility] Glucose [Mass/Vol] 90 mg/dL 74-106 [facility] Potassium [Moles/Vol] 4.2 mmol/L 3.5-5.1 [facility] Sodium [Moles/Vol] 140 mmol/L 136-145 [facility] Laboratory - Chemistry and C hemistry - challengeOrdered By: Jeff Wray on 05-29-2023 CO2 [Moles/Vol] 28.0 mmol/L 21.0-32.0 [facility] Urea nitrogen/Creatinine [Mass ratio] 17.6 mg/mg 10-20 [facility] No Panel InformationOrdered By: Jeff Wray on 05-29-2023 Estimated GFR (MDRD) Amer 76 mL/min >60 [facility] Comment on above: GFR Calc Estimated GFR (MDRD) Non-Af Amer 63 mL/min >60 [facility] Comment on above: Non- GFR Calc Serum or plasma calcium tejas urement (mass/volume)Ordered By: Jeff Wray on 05-29-2023 Calcium [Mass/Vol] 9.2 mg/dL 8.5-10.1 [facility] Serum or plasma creatinine m easurement (mass/volume)Ordered By: Jeff Wray on 05-29-2023 Creatinine [Mass/Vol] 0.96 mg/dL 0.55-1.02 [facility] Comment on above: The validity of the calculated GFR & GFRAA in patients over 70 years has not been determined. Clinical correlation is essential. Serum or plasma urea nitroge n measurement (mass/volume)Ordered By: Jeff Wray on 05-29-2023 Urea nitrogen [Mass/Vol] 17 mg/dL 7-18 [facility] Thin prep Papanicolaou smear with manual screeningOrdered By: Jeff Wray on 05-29-2023 Thin prep Papanicolaou smear with manual screening 6 5-15 [facility] Absolute lymphocyte countOrd ered By: Renato Bonilla on 05-03-2023 Lymphocytes Auto (Unsp spec) [#/Vol] 1.64 10*3/uL 0.83-4.51 [facility] Basophil percentageOrdered B y: Renato Bonilla on 05-03-2023 Basophils/100 WBC (Bld) 1.0 % 0-1 [facility] Eosinophils/100 WBC (Bld) 3.3 % 0-5 [facility] Neutrophils (Bld) [#/Vol] 2.6 10*3/uL 2.0-7.7 [facility] Neutrophils/100 WBC (Bld) 53.2 % 47-70 [facility] WBC (Bld) [#/Vol] 4.8 10*3/uL 4.4-11.0 [facility] Blood erythrocytes count (nu mber/volume)Ordered By: Renato Bonilla on 05-03-2023 RBC (Bld) [#/Vol] 2.96 10*6/uL 4.2-5.4 [facility] Blood hemoglobin measurement (mass/volume)Ordered By: Renato Bonilla on 05-03-2023 Hemoglobin (Bld) [Mass/Vol] 9.6 g/dL 12.0-15.0 [facility] Blood lymphocytes/100 leukoc ytesOrdered By: Renato Bonilla on 05-03-2023 Lymphocytes/100 WBC (Bld) 34.0 % 19-41 [facility] Blood monocytes/100 leukocyt esOrdered By: Renato Bonilla on 05-03-2023 Monocytes/100 WBC (Bld) 8.3 % 0-10 [facility] Blood platelet mean volumeOr dered By: Renato Bonilla on 05-03-2023 Platelet mean volume (Bld) [Entitic vol] 9.5 fL 6.2-12.0 [facility] Determination of erythrocyte mean corpuscular volume (MCV)Ordered By: Renato Bonilla on 05-03-2023 MCV (RBC) [Entitic vol] 98.0 fL 81-99 [facility] Hematocrit Auto (Bld) [Volum e fraction]Ordered By: Renato Bonilla on 05-03-2023 Hematocrit (Bld) [Volume fraction] 29.0 % 37-47 [facility] Laboratory - Hematology and Cell countsOrdered By: Renato Bonilla on 05-03-2023 Erythrocyte distribution width (RBC) [Entitic vol] 45.2 fL 35.1-43.9 [facility] Erythrocyte distribution width (RBC) [Ratio] 12.8 % 11.6-14.6 [facility] Immature granulocytes/100 WBC (Bld) 0.200 % 0.0-0.9 [facility] Comment on above: IG% - Immature Granu locytes (promyelocytes, myelocytes and metamyelocytes) > 1% indicates that a LEFT SHIFT is Present. MCH (RBC) [Entitic mass] 32.4 pg 27.0-32.0 [facility] Nucleated RBC/100 WBC (Bld) [Ratio] 0 % 0-5 [facility] MCHC Auto (RBC) [Mass/Vol]Or dered By: Renato Bonilla on 05-03-2023 MCHC (RBC) [Mass/Vol] 33.1 g/dL 32-36 [facility] Platelets bldOrdered By: Renato Bonilla on 05-03-2023 Platelets (Bld) [#/Vol] 328 10*3/uL 150-450 [facility] Absolute lymphocyte countOrd ered By: Renato Bonilla on 01-17-2023 Lymphocytes Auto (Unsp spec) [#/Vol] 1.77 10*3/uL 0.83-4.51 [facility] Basophil percentageOrdered B y: Renato Bonilla on 01-17-2023 Basophil percentage 3.8 mg/dL 2.5-4.9 [facility] Basophils/100 WBC (Bld) 0.8 % 0-1 [facility] Bilirubin [Mass/Vol] 0.10 mg/dL 0.20-1.00 [facility] Comment on above: For patients on eltr ombopag therapy, use of Dimension [place] TBIL is not recommended. Chloride [Moles/Vol] 105 mmol/L 98-107 [facility] Eosinophils/100 WBC (Bld) 3.7 % 0-5 [facility] Glucose [Mass/Vol] 70 mg/dL 74-106 [facility] Neutrophils (Bld) [#/Vol] 2.4 10*3/uL 2.0-7.7 [facility] Neutrophils/100 WBC (Bld) 50.2 % 47-70 [facility] Potassium [Moles/Vol] 3.5 mmol/L 3.5-5.1 [facility] Protein [Mass/Vol] 7.4 g/dL 6.4-8.2 [facility] Sodium [Moles/Vol] 139 mmol/L 136-145 [facility] WBC (Bld) [#/Vol] 4.8 10*3/uL 4.4-11.0 [facility] Blood erythrocytes count (nu mber/volume)Ordered By: Renato Bonilla on 01-17-2023 RBC (Bld) [#/Vol] 4.02 10*6/uL 4.2-5.4 [facility] Blood hemoglobin measurement (mass/volume)Ordered By: Renato Bonilla on 01-17-2023 Hemoglobin (Bld) [Mass/Vol] 12.5 g/dL 12.0-15.0 [facility] Blood lymphocytes/100 leukoc ytesOrdered By: [facility] on 01-17-2023 Lymphocytes/100 WBC (Bld) 36.6 % 19-41 [facility] Blood monocytes/100 leukocyt esOrdered By: [facility] Monocytes/100 WBC (Bld) 8.5 % 0-10 [facility] Blood platelet mean volumeOr dered By: Renato Bonilla on 01-17-2023 Platelet mean volume (Bld) [Entitic vol] 9.4 fL 6.2-12.0 [facility] Determination of erythrocyte mean corpuscular volume (MCV)Ordered By: Renato Bonilla on 01-17-2023 MCV (RBC) [Entitic vol] 95.5 fL 81-99 [facility] Hematocrit Auto (Bld) [Volum e fraction]Or[facility] By[facility]23 Hematocrit (Bld) [Volume fraction] 38.4 % 37-47 [facility] Laboratory - Chemistry and C hemistry - challengeOrdered By: Renato Bonilla on 01-17-2023 ALP [Catalytic activity/Vol] 81 U/L 45-117 [facility] ALT [Catalytic activity/Vol] 21 U/L 13-56 [facility] CO2 [Moles/Vol] 28.0 mmol/L 21.0-32.0 [facility] Globulin (S) [Mass/Vol] 3.5 g/dL 2.2-4.2 [facility] Magnesium [Mass/Vol] 2.1 mg/dL 1.6-2.6 [facility] Urea nitrogen/Creatinine [Mass ratio] 18.0 mg/mg 10-20 [facility] Laboratory - Hematology and Cell countsOrdered By: Renato Bonilla on 01-17-2023 Erythrocyte distribution width (RBC) [Entitic vol] 42.4 fL 35.1-43.9 [facility] Erythrocyte distribution width (RBC) [Ratio] 12.1 % 11.6-14.6 [facility] Immature granulocytes/100 WBC (Bld) 0.200 % 0.0-0.9 [facility] Comment on above: IG% - Immature Granu locytes (promyelocytes, myelocytes and metamyelocytes) > 1% indicates that a LEFT SHIFT is Present. MCH (RBC) [Entitic mass] 31.1 pg 27.0-32.0 [facility] Nucleated RBC/100 WBC (Bld) [Ratio] 0 % 0-5 [facility] MCHC Auto (RBC) [Mass/Vol]Or dered By: Renato Bonilla on 01-17-2023 MCHC (RBC) [Mass/Vol] 32.6 g/dL 32-36 [facility] No Panel InformationOrdered By: Renato Bonilla on 01-17-2023 Estimated GFR (MDRD) Amer 64 mL/min >60 [facility] Comment on above: GFR Calc Estimated GFR (MDRD) Non-Af Amer 53 mL/min >60 [facility] Comment on above: Non- GFR Calc Thyroid Stimulating Hormone (TSH) 0.85 uIU/mL 0.358-3.74 [facility] Platelets bldOrdered By: Renato Bonilla on 01-17-2023 Platelets (Bld) [#/Vol] 300 10*3/uL 150-450 [facility] Serum or plasma albumin tejas urement (mass/volume)Ordered By: Renato Bonilla on 01-17-2023 Albumin [Mass/Vol] 3.9 g/dL 3.2-5.0 [facility] Serum or plasma albumin/glob ulin mass ratioOrdered By: Renato Bonilla 01-17-2023 Albumin/Globulin [Mass ratio] 1.1 {ratio} 0.9-2.4 [facility] Serum or plasma calcium tejas urement (mass/volume)Ordered By: Renato Bonilla on 07-18-2023 Calcium [Mass/Vol] 8.9 mg/dL 8.5-10.1 [facility] Serum or plasma creatinine m easurement (mass/volume)Ordered By: Renato Bonilla on 01-17-2023 Creatinine [Mass/Vol] 1.11 mg/dL 0.55-1.02 [facility] Comment on above: The validity of the calculated GFR & GFRAA in patients over 70 years has not been determined. Clinical correlation is essential. Serum or plasma urea nitroge n measurement (mass/volume)Ordered By: Renato Bonilla on 01-17-2023 Urea nitrogen [Mass/Vol] 20 mg/dL 01-17 [facility] Thin prep Papanicolaou smear with manual screeningOrdered By: Renato Bonilla on 01-17-2023 Thin prep Papanicolaou smear with manual screening 22 U/L 15- [facility] Thin prep Papanicolaou smear with manual screening 6 5-15 [facility] Absolute lymphocyte countOrd ered By: Dr. Bonilla on 09-22-2022 Lymphocytes Auto (Unsp spec) [#/Vol] 1.77 10*3/uL 0.83-4.51 [facility] Basophil percentageOrdered B y: Dr. Bonilla on 09-22-2022 Basophils/100 WBC (Bld) 0.7 % 0-1 [facility] Bilirubin [Mass/Vol] 0.30 mg/dL 0.20-1.00 [facility] Comment on above: For patients on eltr ombopag therapy, use of Dimension [place] TBIL is not recommended. Chloride [Moles/Vol] 106 mmol/L 98-107 [facility] Eosinophils/100 WBC (Bld) 2.0 % 0-5 [facility] Glucose [Mass/Vol] 106 mg/dL 74-106 [facility] Comment on above: Fasting Glucose resu lt from 100 to 125 mg/dL suggests IMPAIRED HOMEOSTASIS per A.D.A. criteria. Neutrophils (Bld) [#/Vol] 3.2 10*3/uL 2.0-7.7 [facility] Neutrophils/100 WBC (Bld) 57.4 % 47-70 [facility] Potassium [Moles/Vol] 3.9 mmol/L 3.5-5.1 [facility] Protein [Mass/Vol] 7.6 g/dL 6.4-8.2 [facility] Sodium [Moles/Vol] 139 mmol/L 136-145 [facility] WBC (Bld) [#/Vol] 5.6 10*3/uL 4.4-11.0 [facility] Blood erythrocytes count (nu mber/volume)Ordered By: Dr. Bonilla on 09-22-2022 RBC (Bld) [#/Vol] 4.12 10*6/uL 4.2-5.4 [facility] Blood hemoglobin measurement (mass/volume)Ordered By: Dr. Bonilla on 09-22-2022 Hemoglobin (Bld) [Mass/Vol] 13.1 g/dL 12.0-15.0 [facility] Blood lymphocytes/100 leukoc ytesOrdered By: Dr. Bonilla on 09-22-2022 Lymphocytes/100 WBC (Bld) 31.8 % 19-41 [facility] Blood monocytes/100 leukocyt esOrdered By: Dr. Bonilla on 09-22-2022 Monocytes/100 WBC (Bld) 7.9 % 0-10 [facility] Blood platelet mean volumeOr dered By: Dr. Bonilla on 09-22-2022 Platelet mean volume (Bld) [Entitic vol] 9.6 fL 6.2-12.0 [facility] Determination of erythrocyte mean corpuscular volume (MCV)Ordered By: Dr. Bonilla on 09-22-2022 MCV (RBC) [Entitic vol] 97.1 fL 81-99 [facility] Hematocrit Auto (Bld) [Volum e fraction]Ordered By: Dr. Bonilla on 09-22-2022 Hematocrit (Bld) [Volume fraction] 40.0 % 37-47 [facility] Laboratory - Chemistry and C hemistry - challengeOrdered By: Dr. Bonilla on 09-22-2022 ALP [Catalytic activity/Vol] 81 U/L 45-117 [facility] ALT [Catalytic activity/Vol] 18 U/L 13-56 [facility] CO2 [Moles/Vol] 25.0 mmol/L 21.0-32.0 [facility] Globulin (S) [Mass/Vol] 3.4 g/dL 2.2-4.2 [facility] Urea nitrogen/Creatinine [Mass ratio] 19.2 mg/mg 10-20 [facility] Laboratory - Hematology and Cell countsOrdered By: Dr. Bonilla on 09-22-2022 Erythrocyte distribution width (RBC) [Entitic vol] 44.2 fL 35.1-43.9 [facility] Erythrocyte distribution width (RBC) [Ratio] 12.3 % 11.6-14.6 [facility] Immature granulocytes/100 WBC (Bld) 0.200 % 0.0-0.9 [facility] Comment on above: IG% - Immature Granu locytes (promyelocytes, myelocytes and metamyelocytes) > 1% indicates that a LEFT SHIFT is Present. MCH (RBC) [Entitic mass] 31.8 pg 27.0-32.0 [facility] Nucleated RBC/100 WBC (Bld) [Ratio] 0 % 0-5 [facility] MCHC Auto (RBC) [Mass/Vol]Or dered By: Dr. Bonilla on 09-22-2022 MCHC (RBC) [Mass/Vol] 32.8 g/dL 32-36 [facility] No Panel InformationOrdered By: Dr. Bonilla on 09-22-2022 Estimated GFR (MDRD) Amer 59 mL/min >60 [facility] Comment on above: GFR Calc Estimated GFR (MDRD) Non-Af Amer 49 mL/min >60 [facility] Comment on above: Non- GFR Calc Thyroid Stimulating Hormone (TSH) 0.68 uIU/mL 0.358-3.74 [facility] Vitamin D 25-Hydroxy 39.7 ng/mL [facility] Comment on above: Vitamin D 25(OH) Sta tus Range Deficiency <20 ng/mL (50nmol/L) Insufficiency 20 - 30 ng/mL (50 - 75 nmol/L) Sufficiency 30 - 100 ng/mL (75 - 250 nmol/L) Toxicity >100 ng/mL (>250 nmol/L) Platelets bldOrdered By: Dr. Bonilla on 09-22-2022 Platelets (Bld) [#/Vol] 284 10*3/uL 150-450 [facility] Serum or plasma albumin tejas urement (mass/volume)Ordered By: Dr. Bonilla on 09-22-2022 Albumin [Mass/Vol] 4.2 g/dL 3.2-5.0 [facility] Serum or plasma albumin/glob ulin mass ratioOrdered By: Dr. Bonilla on 09-22-2022 Albumin/Globulin [Mass ratio] 1.2 {ratio} 0.9-2.4 [facility] Serum or plasma calcium tejas urement (mass/volume)Ordered By: Dr. Bonilla on 09-22-2022 Calcium [Mass/Vol] 9.4 mg/dL 8.5-10.1 [facility] Serum or plasma creatinine m easurement (mass/volume)Ordered By: Dr. Bonilla on 09-22-2022 Creatinine [Mass/Vol] 1.20 mg/dL 0.55-1.02 [facility] Comment on above: The validity of the calculated GFR & GFRAA in patients over 70 years has not been determined. Clinical correlation is essential. Serum or plasma urea nitroge n measurement (mass/volume)Ordered By: Dr. Bonilla on 09-22-2022 Urea nitrogen [Mass/Vol] 23 mg/dL 7-18 [facility] Thin prep Papanicolaou smear with manual screeningOrdered By: Dr. Bonilla on 09-22-2022 Thin prep Papanicolaou smear with manual screening 29 U/L 15-37 [facility] Thin prep Papanicolaou smear with manual screening 8 5-15 [facility] HAND MIN 3 VIEWSon 2 HAND MIN 3 VIEWS STUDY: Hand Radiographs; 04/25/2022 1159 PM INDICATION: Pain and swelling. COMPARISON: None available. ACCESSION NUMBER(S): [id number] ORDERING CLINICIAN: YIMI STOKES CNP TECHNIQUE: Three view(s) of the right hand. FINDINGS: No discrete fracture. Well-corticated calcification between distal ends of radius and ulna apparently degenerative. Dorsal soft tissue swelling. No abnormal radiopaque foreign body. Impression: No acute bony abnormality demonstrated by this technique. Signed by Nain Tejeda D.O. Electronically signed by: NAIN TEJEDA DO [facility] Provider Note - ED v3on 04-03 Provider Note - ED v3 Provider Note: Chart Review: ED NOTES ED NOTES: Patient presents for evaluation of right hand pain and swelling s/p hitting hand on shelf at work today just prior to arrival. Pt denies any numbness/tingling, decreased ROM, or any other associated symptoms or complaints. No otc meds used for symptoms. HISTORY OF PRESENTING ILLNESS AMIE is a 61 year old Female and was seen by me at 25-Apr-2022 11:24. Triage Information: Most recent Vital Sign Value Date PAST MEDICAL HISTORY ALLERGIES/INTOLERANCES: No Known Allergies HEALTH HISTORY: No documented data. OUTPATIENT MEDICATIONS: Home Medications Review Status for Reconciliation: Complete Med Status: Patient Currently Takes Medications Drug Name: losartan-hydrochlorothia zide 100 mg-12.5 mg oral tablet Instructions: 1 tab(s) orally once a day SIGNIFICANT EVENTS: No documented data. 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 MUSCULOSKELETAL: Right hand with edema, ecchymosis over right 2,3,4 metacarpals. No decreased ROM. NEUROLOGICAL: Alert and oriented, no focal deficits, no motor or sensory deficits. SKIN: Skin normal color for race, warm, dry and intact. No evidence of trauma. PSYCHIATRIC: Alert and oriented to person, place, time/situation. normal mood and affect. No apparent risk to self or others. CRITICAL CARE RESULTS: Radiology Results: Xray Hand Min 3 View [Apr 25 2022 12:19PM] FINAL REPORT - Right Interpreted by: NAIN TEJEDA MICHAEL, DO 04/25/22 12:17 Facility: [facility] STUDY: Hand Radiographs; 04/25/2022 1159 PM INDICATION: Pain and swelling. COMPARISON: None available. ACCESSION NUMBER(S): [id number] ORDERING CLINICIAN: YIMI STOKES CNP TECHNIQUE: Three view(s) of the right hand. FINDINGS: No discrete fracture. Well-corticated calcification between distal ends of radius and ulna apparently degenerative. Dorsal soft tissue swelling. No abnormal radiopaque foreign body. Impression: No acute bony abnormality demonstrated by this technique. Signed by Nain Tejeda D.O. Transcribed By: Interface, Electronically Signed By:NAIN TEJEDA MICHAEL 04/25/22 12:17 VITAL SIGNS: T PRBP SpO2O2(LPM) %FiO2 Method 25-Apr-2022 11:19:[id number] 99 MDM MDM/ED COURSE: Discussed Findings with: patient Data Reviewed: vital signs Awaiting: x-ray results Treatment Plan: Xray R hand ordered. Ice steve given. Advised pt to rest, ice, elevate. Patient's clinical presentation is otherwise unremarkable at this time. Patient is discharged with instructions to follow-up with primary care or seek emergency medical attention for worsening symptoms or any new concerns. DISPOSITION Diagnosis/Annotation: ED Dx Name:Contusion of right hand, initial encounter Code:S60.221A Disposition: discharged Type: home CONSULT CRITICAL CARE TIME Is this a critically ill patient: no Electronic Signatures: Yimi Stokes (CORPORATE PARALEGAL-SCHOOL HEALTH ASSISTANT) (Signed 25-Apr-2022 13:12) Authored: ED Notes, HPI, PMH, ROS, PE, Results/Vital Signs, MDM/ED Course, Clinical Impression, Attestation, Chart Review, Scores Last Updated: 25-Apr-2022 13:12 by Yimi Stokes (CORPORATE PARALEGAL[employer]CHOOL HEALTH ASSISTANT) [facility] Absolute lymphocyte counton 10-14-2021 Lymphocytes Auto (Unsp spec) [#/Vol] 1.72 10*3/uL 0.83-4.51 [facility] Work Phone: Basophil percentageon 2021 Basophils/100 WBC (Bld) 0.7 % 0-1 [facility] Work Phone: Bilirubin [Mass/Vol] 0.20 mg/dL 0.20-1.00 [facility] Work Phone: Comment on above: For patients on eltr ombopag therapy, use of Dimension [place] TBIL is not recommended. Chloride [Moles/Vol] 106 mmol/L 98-107 [facility] Work Phone: Eosinophils/100 WBC (Bld) 3.7 % 0-5 [facility] Work Phone: Glucose [Mass/Vol] 82 mg/dL 74-106 [facility] Work Phone: Neutrophils (Bld) [#/Vol] 3.1 10*3/uL 2.0-7.7 [facility] Work Phone: Neutrophils/100 WBC (Bld) 55.3 % 47-70 [facility] Work Phone: Potassium [Moles/Vol] 4.0 mmol/L 3.5-5.1 [facility] Work Phone: Protein [Mass/Vol] 7.3 g/dL 6.4-8.2 [facility] Work Phone: Sodium [Moles/Vol] 140 mmol/L 136-145 [facility] Work Phone: WBC (Bld) [#/Vol] 5.7 10*3/uL 4.4-11.0 [facility] Work Phone: Blood erythrocytes count (nu mber/volume)on 10-14-2021 RBC (Bld) [#/Vol] 4.27 10*6/uL 4.2-5.4 [facility] Work Phone: Blood hemoglobin measurement (mass/volume)on 10-14-2021 Hemoglobin (Bld) [Mass/Vol] 13.4 g/dL 12.0-15.0 [facility] Work Phone: Blood lymphocytes/100 leukoc yteson 10-14-2021 Lymphocytes/100 WBC (Bld) 30.4 % 19-41 [facility] Work Phone: Blood monocytes/100 leukocyt eson 10-14-2021 Monocytes/100 WBC (Bld) 9.7 % 0-10 [facility] Work Phone: Blood platelet mean volumeon 10-14-2021 Platelet mean volume (Bld) [Entitic vol] 9.0 fL 6.2-12.0 [facility] Work Phone: Determination of erythrocyte mean corpuscular volume (MCV)on 10-14-2021 MCV (RBC) [Entitic vol] 97.0 fL 81-99 [facility] Work Phone: [phone] Hematocrit Auto (Bld) [Volum e fraction]on 10-14-2021 Hematocrit (Bld) [Volume fraction] 41.4 % 37-47 [facility] Work Phone: [phone] Laboratory - Chemistry and C hemistry - challengeon 10-14-2021 ALP [Catalytic activity/Vol] 98 U/L 45-117 [facility] Work Phone: [phone] ALT [Catalytic activity/Vol] 24 U/L 13-56 [facility] Work Phone: [phone] CO2 [Moles/Vol] 29.0 mmol/L 21.0-32.0 [facility] Work Phone: [phone] Globulin (S) [Mass/Vol] 3.5 g/dL 2.2-4.2 [facility] Work Phone: [phone] Urea nitrogen/Creatinine [Mass ratio] 20.6 mg/mg 10-20 [facility] Work Phone: [phone] Laboratory - Hematology and Cell countson 10-14-2021 Erythrocyte distribution width (RBC) [Entitic vol] 43.4 fL 35.1-43.9 [facility] Work Phone: [phone] Erythrocyte distribution width (RBC) [Ratio] 12.1 % 11.6-14.6 [facility] Work Phone: [phone] Immature granulocytes/100 WBC (Bld) 0.200 % 0.0-0.9 [facility] Work Phone: [phone] Comment on above: IG% - Immature Granu locytes (promyelocytes, myelocytes and metamyelocytes) > 1% indicates that a LEFT SHIFT is Present. MCH (RBC) [Entitic mass] 31.4 pg 27.0-32.0 [facility] Work Phone: [phone] Nucleated RBC/100 WBC (Bld) [Ratio] 0 % 0-5 [facility] Work Phone: [phone] MCHC Auto (RBC) [Mass/Vol]on 10-14-2021 MCHC (RBC) [Mass/Vol] 32.4 g/dL 32-36 [facility] Work Phone: No Panel Informationon 10-14 Estimated GFR (MDRD) Amer 68 mL/min >60 [facility] Work Phone: [phone] Comment on above: GFR Calc Estimated GFR (MDRD) Non-Af Amer 56 mL/min >60 [facility] Work Phone: [phone] Comment on above: Non- GFR Calc Thyroid Stimulating Hormone (TSH) 1.31 uIU/mL 0.358-3.74 [facility] Work Phone: Vitamin D 25-Hydroxy 50.1 ng/mL [facility] Work Phone: Comment on above: Vitamin D 25(OH) Sta tus Range Deficiency <20 ng/mL (50nmol/L) Insufficiency 20 - 30 ng/mL (50 - 75 nmol/L) Sufficiency 30 - 100 ng/mL (75 - 250 nmol/L) Toxicity >100 ng/mL (>250 nmol/L) Platelets bldon 10-14-2021 Platelets (Bld) [#/Vol] 281 10*3/uL 150-450 [facility] Work Phone: [phone] Serum or plasma albumin tejas urement (mass/volume)on 10-14-2021 Albumin [Mass/Vol] 3.8 g/dL 3.2-5.0 [facility] Work Phone: [phone] Serum or plasma albumin/glob ulin mass ratioon 10-14-2021 Albumin/Globulin [Mass ratio] 1.1 {ratio} 0.9-2.4 [facility] Work Phone: [phone] Serum or plasma calcium tejas urement (mass/volume)on 10-14-2021 Calcium [Mass/Vol] 9.2 mg/dL 8.5-10.1 [facility] Work Phone: [phone] Serum or plasma creatinine m easurement (mass/volume)on 10-14-2021 Creatinine [Mass/Vol] 1.07 mg/dL 0.55-1.02 [facility] Work Phone: Comment on above: The validity of the calculated GFR & GFRAA in patients over 70 years has not been determined. Clinical correlation is essential. Serum or plasma urea nitroge n measurement (mass/volume)on 10-14-2021 Urea nitrogen [Mass/Vol] 22 mg/dL 7-18 [facility] Work Phone: Thin prep Papanicolaou smear with manual screeningon 10-14-2021 Thin prep Papanicolaou smear with manual screening 23 U/L 15 [facility] Work Phone: Thin prep Papanicolaou smear with manual screening 5 - [facility] Work Phone: Provider Note - ED v3on 08-04 Provider Note - ED v3 Provider Note: Chart Review: HISTORY OF PRESENTING ILLNESS AMIE is a 60 year old Female and was seen by me at 27-Aug-2021 11:01. The historian is the patient. Triage Information: Most recent Vital Sign Value Date PAST MEDICAL HISTORY ALLERGIES/INTOLERANCES: No Known Allergies HEALTH HISTORY: History of HTN; no other known health issues. Family history: no pertinent history. Social history: Current smoker - 1 PPD. Under a lot of stress right now - mother is hospitalized and dying. 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 OUTPATIENT MEDICATIONS: Home Medications Review Status for Reconciliation: Complete Med Status: Patient Currently Takes Medications Drug Name: losartan-hydrochlorothia zide 100 mg-12.5 mg oral tablet Instructions: 1 tab(s) orally once a day Drug Name: amoxicillin-clavulanate 875 mg-125 mg oral tablet Instructions: 1 tab(s) orally 2 times a day x 10 days SIGNIFICANT EVENTS: History of hysterectomy; no other known significant events or other known past surgical history. Has received 2 doses + a booster of the COVID-19 vaccine (booster was in 05/2021). Received [id number] flu vaccine. 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 Asymptomatic. MDM MDM/ED COURSE: This note was generated with voice recognition software and may contain errors including spelling, grammar, syntax, and misrecognization of what was dictated Chief Complaint Sinus pressure/congestion/pain History of Present Illness Patient presents today for evaluation of sinus pressure/pain (L side >R side), sinus headaches, and severe nasal congestion (thick, yellow mucus) x 1 month, although seems to have gotten a little worse over the past few days. She has PND, mild fatigue, and her teeth hurt d/t the sinus pressure. She has a mild, sometimes productive cough but states this is not really bothersome, and attributes it to her smoking. Denies any fever/chills, body aches, sore throat, ear pain, rashes, abdominal pain, chest pain, wheezing/shortness of breath, urinary symptoms, nausea/vomiting, and diarrhea. Appetite is normal and is able to eat and drink fluids without difficulty; denies any loss of sense of taste or smell. Reports symptoms have not really improved since onset, and sinus pressure/congestion seems to be getting a little worse. Has been taking Mucinex and benadryl allergy without much relief; no other rehu-piw-aqepjii medications or home remedies for symptom management. No known ill contacts. Has received 2 doses of the [employer] COVID-19 vaccine plus a booster in 05/2021. Receive the flu vaccine this winter. Current smoker; no history of asthma/COPD. Review of Systems 10 systems reviewed negative with exception of history of present illness listed above Physical Examination General: Mildly ill-appearing, well nourished female; alert and oriented, in no acute distress. + audible nasal congestion. Eyes: Pupils equal, round and reactive to light. No conjunctival erythema; no scleral icterus. HENT: + frontal, ethmoid, and maxillary sinus tenderness (L>R), with audible nasal congestion. Bilat ear canals with mild cerumen obscuring part of TMs, but visible portions of TMs and ear canals unremarkable. No tenderness with manipulation of tragus/pinna or over mastoid. Nasal mucosa moderately boggy and edematous. Airway patent, oral mucosa moist. Posterior pharynx mildly injected but without vesicles or oropharyngeal exudate aside from PND. Uvula is midline. Trachea is midline. Managing oral secretions without difficulty. Neck: Supple. Tender, mobile anterior cervical lymphadenopathy bilat. Respiratory: Lungs are clear to auscultation; no wheezes, rhonchi, or rales. Respirations unlabored, Breath sounds are equal, Symmetrical chest wall expansion. Mild, semi-productive cough noted only upon request. Cardiovascular: Normal rate, Regular rhythm. Normal S1S2. No m/r/g. No peripheral edema. Gastrointestinal: Soft, non-tender, non-distended; no palpable masses or organomegaly. Bowel sounds normoactive. Musculoskeletal: Grossly normal Integumentary: [place], warm, dry, and Intact. No rashes or skin discoloration appreciated. Neurologic: Alert and oriented, no focal deficits, no motor or sensory deficits. Cognition and Speech: Oriented, Speech clear and coherent. Psychiatric: Cooperative, Appropriate mood & affect. Medical Decision Making Course: Worsening; stable. Impression/Plan: Discussed pro's/con's of COVID-19 testing - pt declined testing today, but urged precautionary measures. Symptoms consistent with sinusitis with associated cough, but reviewed other potential etiologies. Per history, no improv (more content not included)... Normal [facility] Absolute lymphocyte counton 08-11-2021 Lymphocytes Auto (Unsp spec) [#/Vol] 2.16 10*3/uL 0.83-4.51 [facility] Work Phone: Basophil percentageon 2021 Basophils/100 WBC (Bld) 0.4 % 0-1 [facility] Work Phone: Chloride [Moles/Vol] 106 mmol/L 98-107 [facility] Work Phone: Eosinophils/100 WBC (Bld) 1.8 % 0-5 [facility] Work Phone: Glucose [Mass/Vol] 93 mg/dL 74-106 [facility] Work Phone: Neutrophils (Bld) [#/Vol] 3.9 10*3/uL 2.0-7.7 [facility] Work Phone: Neutrophils/100 WBC (Bld) 57.9 % 47-70 [facility] Work Phone: Potassium [Moles/Vol] 4.3 mmol/L 3.5-5.1 [facility] Work Phone: Sodium [Moles/Vol] 139 mmol/L 136-145 [facility] Work Phone: WBC (Bld) [#/Vol] 6.8 10*3/uL 4.4-11.0 [facility] Work Phone: Blood erythrocytes count (nu mber/volume)on 08-11-2021 RBC (Bld) [#/Vol] 3.83 10*6/uL 4.2-5.4 [facility] Work Phone: Blood hemoglobin measurement (mass/volume)on 08-11-2021 Hemoglobin (Bld) [Mass/Vol] 12.6 g/dL 12.0-15.0 [facility] Work Phone: Blood lymphocytes/100 leukoc yteson 08-11-2021 Lymphocytes/100 WBC (Bld) 31.8 % 19-41 [facility] Work Phone: [phone] Blood monocytes/100 leukocyt eson 08-11-2021 Monocytes/100 WBC (Bld) 7.8 % 0-10 [facility] Work Phone: Blood platelet mean volumeon 08-11-2021 Platelet mean volume (Bld) [Entitic vol] 9.4 fL 6.2-12.0 [facility] Work Phone: Determination of erythrocyte mean corpuscular volume (MCV)on 08-11-2021 MCV (RBC) [Entitic vol] 95.8 fL 81-99 [facility] Work Phone: Hematocrit Auto (Bld) [Volum e fraction]on 08-11-2021 Hematocrit (Bld) [Volume fraction] 36.7 % 37-47 [facility] Work Phone: Laboratory - Chemistry and C hemistry - challengeon 08-11-2021 CO2 [Moles/Vol] 28.0 mmol/L 21.0-32.0 [facility] Work Phone: Urea nitrogen/Creatinine [Mass ratio] 22.5 mg/mg 10-20 [facility] Work Phone: [phone] Laboratory - Hematology and Cell countson 08-11-2021 Erythrocyte distribution width (RBC) [Entitic vol] 47.7 fL 35.1-43.9 [facility] Work Phone: [phone] Erythrocyte distribution width (RBC) [Ratio] 13.5 % 11.6-14.6 [facility] Work Phone: [phone] Immature granulocytes/100 WBC (Bld) 0.300 % 0.0-0.9 [facility] Work Phone: [phone] Comment on above: IG% - Immature Granu locytes (promyelocytes, myelocytes and metamyelocytes) > 1% indicates that a LEFT SHIFT is Present. MCH (RBC) [Entitic mass] 32.9 pg 27.0-32.0 [facility] Work Phone: [phone] Nucleated RBC/100 WBC (Bld) [Ratio] 0 % 0-5 [facility] Work Phone: [phone] MCHC Auto (RBC) [Mass/Vol]on 08-11-2021 MCHC (RBC) [Mass/Vol] 34.3 g/dL 32-36 [facility] Work Phone: [phone] No Panel Informationon 08-11 Estimated GFR (MDRD) Amer 89 mL/min >60 [facility] Work Phone: [phone] Comment on above: GFR Calc Estimated GFR (MDRD) Non-Af Amer 73 mL/min >60 [facility] Work Phone: [phone] Comment on above: Non- GFR Calc Platelets bldon 08-11-2021 Platelets (Bld) [#/Vol] 280 10*3/uL 150-450 [facility] Work Phone: [phone] Serum or plasma calcium tejas urement (mass/volume)on 08-11-2021 Calcium [Mass/Vol] 8.8 mg/dL 8.5-10.1 [facility] Work Phone: [phone] Serum or plasma creatinine m easurement (mass/volume)on 08-11-2021 Creatinine [Mass/Vol] 0.85 mg/dL 0.55-1.02 [facility] Work Phone: Comment on above: The validity of the calculated GFR & GFRAA in patients over 70 years has not been determined. Clinical correlation is essential. Serum or plasma urea nitroge n measurement (mass/volume)on 08-11-2021 Urea nitrogen [Mass/Vol] 19 mg/dL 7-18 [facility] Work Phone: Thin prep Papanicolaou smear with manual screeningon 08-11-2021 Thin prep Papanicolaou smear with manual screening 5 5-15 [facility] Work Phone: Basophil percentageon 2020 Chloride [Moles/Vol] 103 mmol/L 98-107 [facility] Work Phone: Glucose [Mass/Vol] 98 mg/dL 74-106 [facility] Work Phone: Comment on above: Please note revised GLUCOSE reference range effective 2017. Potassium [Moles/Vol] 3.5 mmol/L 3.5-5.1 [facility] Work Phone: Sodium [Moles/Vol] 139 mmol/L 136-145 [facility] Work Phone: Laboratory - Chemistry and C hemistry - challengeon 06-30-2021 CO2 [Moles/Vol] 30.0 mmol/L 21.0-32.0 [facility] Work Phone: Urea nitrogen/Creatinine [Mass ratio] 26.6 mg/mg 10-20 [facility] Work Phone: No Panel Informationon 06-30 Estimated GFR (MDRD) Amer 78 mL/min >60 [facility] Work Phone: Comment on above: GFR Calc Estimated GFR (MDRD) Non-Af Amer 65 mL/min >60 [facility] Work Phone: Comment on above: Non- GFR Calc Serum or plasma calcium tejas urement (mass/volume)on 06-30-2021 Calcium [Mass/Vol] 8.9 mg/dL 8.5-10.1 [facility] Work Phone: Serum or plasma creatinine m easurement (mass/volume)on 06-30-2021 Creatinine [Mass/Vol] 0.94 mg/dL 0.55-1.02 [facility] Work Phone: Comment on above: The validity of the calculated GFR & GFRAA in patients over 70 years has not been determined. Clinical correlation is essential. Serum or plasma urea nitroge n measurement (mass/volume)on 06-30-2021 Urea nitrogen [Mass/Vol] 25 mg/dL 7-18 [facility] Work Phone: Thin prep Papanicolaou smear with manual screeningon 06-30-2021 Thin prep Papanicolaou smear with manual screening 6 5-15 [facility] Work Phone: Provider Note - ED v3on 06-02 Provider Note - ED v3 Provider Note: Chart Review: ED NOTES ED NOTES: Patient came in with complaints of sinus pressure and congestion for a month. Patient says she has tried Mucinex xlez-vua-woziqoa with minimal relief. Patient denies any other symptoms at this time. HISTORY OF PRESENTING ILLNESS AMIE is a 60 year old Female and was seen by me at 19-Jun-2021 09:56. The historian is the patient. Triage Information: Most recent Vital Sign Value Date PAST MEDICAL HISTORY ALLERGIES/INTOLERANCES: No Known Allergies HEALTH HISTORY: No documented data. OUTPATIENT MEDICATIONS: Home Medications Review Status for Reconciliation: Complete Med Status: Patient Currently Takes Medications Drug Name: Flexeril 10 mg oral tablet Instructions: null SIGNIFICANT EVENTS: No documented data. REVIEW OF SYSTEMS ENMTNose: POSITIVE for: congestion All other systems reviewed and are negative PHYSICAL EXAM CONSTITUTIONAL: Well appearing, well nourished, awake, alert, oriented to person, place, time/situation and in no apparent distress. HENMT: Airway patent, ears with clear tympanic membranes bilaterally. Nasal mucosa clear. Mouth with normal mucosa. Throat has no vesicles, no oropharyngeal exudates and uvula is midline. Face with no lymph node enlargement. EYES: pupils are accommodating CARDIOVASCULAR: Normal rate, regular rhythm. RESPIRATORY: Breath sounds clear and equal bilaterally and unlabored. no Rales rhonchi or crackles. GASTROINTESTINAL: NEUROLOGICAL: Alert and oriented, no focal deficits, no motor or sensory deficits. SKIN: Skin normal color for race, warm, dry and intact. No evidence of trauma. PSYCHIATRIC: Alert and oriented to person, place, time/situation. normal mood and affect. No apparent risk to self or others. HEME/LYMPH: No cervical adenopathy. CRITICAL CARE VITAL SIGNS: T PRBP SpO2O2(LPM) %FiO2 Method 19-Jun-2021 09:51:[id number]/98 100 DISPOSITION Diagnosis/Annotation: ED Dx Name:Sinusitis, acute, maxillary Code:J01.00 Disposition: discharged Type: home CONSULT Comments/Additional Findings: Patient was instructed to follow-up with her primary care physician about her blood pressure medication she said she stopped taking it because it made her blood pressure too low. Patient is aware she has high blood pressure and will follow up with her primary care Monday. Instructed her for warning signs to watch to go to the hospital. Patient's not going at this time. Patient was given a Z-Steve educated about proper use of medication and supportive therapies. Patient will follow up if signs and symptoms get any worse.CRITICAL CARE TIME Is this a critically ill patient: no Electronic Signatures: Rajni Lopez (CORPORATE [employer] HEALTH ASSISTANT) (Signed 19-Jun-2021 10:05) Authored: ED Notes, HPI, PMH, ROS, PE, Results/Vital Signs, Clinical Impression, Attestation, Chart Review, Scores Last Updated: 19-Jun-2021 10:05 by Rajni Lopez (CORPORATE PARALE[employer]CHO[employer] HEALTH ASSISTANT) [facility] [place] ([facility] [place] -------- AMIE RYAN ([id number]) 1960 F Date Time Provider Department 06/25/19 8:15 AM CHRISTELLE LUCERO [facility] During your visit today, we recorded the following information about you: Temperature Pulse Respiration Blood pressure 97.5 degrees 64/minute 16/minute 128/82 Weight 55.6 kg Christelle Lucero APRN.SCHOOL HEALTH ASSISTANT 06/25/2019 8:42 AM Signed Subjective HPI Amie Ryan is a 58 year old female who presents with sinus pressure, ear pressure, and swollen glands. She has taken Excedrin as needed. No known fever, shortness of breath, or chest pain. Review of Systems Constitutional: Negative for chills, fever and malaise/fatigue. HENT: Positive for congestion and sinus pain. Negative for ear pain (only pressure) and sore throat. Respiratory: Positive for cough and sputum production. Negative for shortness of breath and wheezing. Cardiovascular: Negative for chest pain. Skin: Negative for itching and rash. Neurological: Negative for dizziness and headaches. BP 128/82 Pulse 64 Temp 36.4 ?C (97.5 ?F) (Tympanic) Resp 16 Wt 55.6 kg (122 lb 9.6 oz) SpO2 99% BMI 20.56 kg/m? PAST MEDICAL HISTORY Diagnosis Date - Adjustment disorder with depressed mood - Personal history of colonic polyps Colon polyps - Unspecified constipation Constipation - Unspecified hemorrhoids without mention of complication Hemorrhoids PAST SURGICAL HISTORY Procedure Laterality Date - APPENDECTOMY - COLONOSCOP W/ OR W/O [facility] SPEC 2004 Colonoscopy - L'SCOPE DX W/WO BRUSHINGS/WASHINGS Laparoscopy - REMOVAL OF OVARY/TUBE(S) Salpingo-oophorectomy - REMOVAL OF TONSILS,<12 Y/O Tonsillectomy - TOTAL ABDOM HYSTERECTOMY Hysterectomy, HALLEY ALLERGIES Patient has no known allergies. MEDICATIONS cyclobenzaprine 10 mg tablet Take 10 mg by mouth three times daily as needed. Taking one tablet daily Estradiol (VIVELLE-DOT) 0.0375 mg/24 hr TWICE WEEKLY FOLIC ACID 400 MCG TAB take three tablets daily = 1200 mcg CALCIUM 500 MG TAB Take one(1) tablet two(2) times daily. DAILY MULTIPLE TAB FAMILY HISTORY Problem Relation Age of Onset - Cancer Father Abdomen - Cancer Paternal Grandfather ? where - Hypertension Mother - Cancer Mother lymphoma-stomach and liver Social History Tobacco Use - Smoking status: Current Every Day Smoker Packs/day: 1.00 Years: 20.00 Pack years: 20.00 Types: Cigarettes - Smokeless tobacco: Never Used Substance Use Topics - Alcohol use: No - Drug use: No Objective Physical Exam Constitutional: She is oriented to person, place, and time and well-developed, well-nourished, and in no distress. HENT: Head: Normocephalic and atraumatic. Right Ear: Tympanic membrane is bulging. Tympanic membrane is not erythematous. No middle ear effusion. Left Ear: Tympanic membrane is bulging. Tympanic membrane is not erythematous. No middle ear effusion. Nose: Mucosal edema and rhinorrhea present. Right sinus exhibits no maxillary sinus tenderness and no frontal sinus tenderness. Left sinus exhibits no maxillary sinus tenderness and no frontal sinus tenderness. Mouth/Throat: Mucous membranes are not pale, not dry and not cyanotic. No uvula swelling. Posterior oropharyngeal erythema (mild with PND) present. No posterior oropharyngeal edema. Eyes: Conjunctivae are normal. Cardiovascular: Normal rate, regular rhythm, normal heart sounds and intact distal pulses. Exam reveals no gallop and no friction rub. No murmur heard. Pulmonary/Chest: Effort normal and breath sounds normal. No respiratory distress. She has no wheezes. She has no rales. She exhibits no tenderness. Musculoskeletal: General: No edema. Lymphadenopathy: She has cervical adenopathy. Neurological: She is alert and oriented to person, place, and time. Gait normal. Skin: Skin is warm and dry. No rash noted. She is not diaphoretic. ASSESSMENT/PLAN: 1. Viral URI - ICD9: 465.9, ICD10: J06.9 - Discussed viral etiology and rationale for treatment. - Symptomatic treatment with prn analgesia - Supportive care with fluids and rest - FLUTICASONE PROPIONATE 50 MCG/ACTUATION NASAL SPRAY,SUSPENSION Patient understands if he/she develops any shortness of breath, chest pain, or persistent fever, they should be taken to the ER immediately or call 911. All of the above discussed with the patient in detail. Patient is in agreement with the above plan. Treatment and plan of care discussed including course of treatment, possible medication side effects, and what to watch for in regards to worsening signs and symptoms. All questions addressed. Christelle Lucero APRN.DOUGLAS Lucero APRN.CNP 06/25/2019 8:38 AM Signed RESPIRATORY INFECTION GENERAL INFORMATION: An upper respiratory tract infection, or cold, is a viral infection of the airway passages. It can be caused by any one of almost 200 different viruses. Common symptoms include a runny or stuffy nose, sneezing, watery eyes, sore throat, cough, and slight fever. Colds are contagious, especially during the first 3 or 4 days and cannot be cured by antibiotics. They are spread by coughs, sneezes, and direct contact, especially [id number]. A respiratory tract infection usually clears up in a few days, but some people may be sick for a week or two. INSTRUCTIONS: 1. Be careful not to blow your nose too hard because this may cause a nosebleed. 2. Use a cool-mist humidifier (vaporizer) to increase air moisture. This will make it easier for you to breathe. Do not use hot steam. 3. Rest as much as possible and get plenty of sleep. 4. Wash your hands often, especially after you blow your nose. Cover your mouth and nose with a tissue when you sneeze or cough. 5. Drink plenty of clear fluids (8 glasses a day) such as water, fruit juice, tea, clear soups, and carbonated beverages. CONTACT YOUR DOCTOR IF : 1. Your fever lasts more than 3 days. 2. You have a sore throat that gets worse or you see white or yellow spots in your throat. 3. Your cough gets worse or lasts more than 10 days. 4. You develop a rash anywhere on your skin. 5. You have an earache or a headache. 6. You have thick greenish or yellowish discharge from your nose. RETURN IMMEDIATELY IF: 1. You cough up thick yellow, green, hopson, or bloody sputum. 2. You have difficulty breathing, pain in your chest, or your skin or nails look hopson or blue. 3. You have shaking chills or a temperature over 102 F (39 C). Referring Provider: SELF [200] Allergies As of Date: 06/25/2019 (No Known Allergies) Date Reviewed: 06/25/2019 Reviewed by: Radha Joseph LPN - Fully Assessed Reason for Visit: sinus pressure [Other] Cmt: x 3 days Primary Visit Diagnosis:Viral URI [J06.9] Order(s):fluticasone (FLONASE) 50 mcg/actuation nasal sprayUse 2 Sprays in each nostril once daily. Rinse mouth after use.Disp: 1 BottleRfl: 0 Prescriptions as of 06/25/2019 Sig: * CYCLOBENZAPRINE 10 MG TABLET Take 10 mg by mouth three alize* FLUTICASONE PROPIONATE 50 MCG* Use 2 Sprays in each nostril * ESTRADIOL 0.0375 MG/24 HR MARY* TWICE WEEKLY Patient not taking: Reported on 06/25/2019 FOLIC ACID 400 MCG TABLET take three tablets daily = 12* CALCIUM 500 MG TABLET Take one(1) tablet two(2) alize* DAILY MULTIPLE TABLET Problem List As Of Date 06/25/2019 Noted Resolved Colitis [K52.9] 12/14/2011 Other instructions from your clinician: RESPIRATORY INFECTION GENERAL INFORMATION: An upper respiratory tract infection, or cold, is a viral infection of the airway passages. It can be caused by any one of almost 200 different viruses. Common symptoms include a runny or stuffy nose, sneezing, watery eyes, sore throat, cough, and slight fever. Colds are contagious, especially during the first 3 or 4 days and cannot be cured by antibiotics. They are spread by coughs, sneezes, and direct contact, especially [id number]. A respiratory tract infection usually clears up in a few days, but some people may be sick for a week or two. INSTRUCTIONS: 1. Be careful not to blow your nose too hard because this may cause a nosebleed. 2. Use a cool-mist humidifier (vaporizer) to increase air moisture. This will make it easier for you to breathe. Do not use hot steam. 3. Rest as much as possible and get plenty of sleep. 4. Wash your hands often, especially after you blow your nose. Cover your mouth and nose with a tissue when you sneeze or cough. 5. Drink plenty of clear fluids (8 glasses a day) such as water, fruit juice, tea, clear soups, and carbonated beverages. CONTACT YOUR DOCTOR IF : 1. Your fever lasts more than 3 days. 2. You have a sore throat that gets worse or you see white or yellow spots in your throat. 3. Your cough gets worse or lasts more than 10 days. 4. You develop a rash anywhere on your skin. 5. You have an earache or a headache. 6. You have thick greenish or yellowish discharge from your nose. RETURN IMMEDIATELY IF: 1. You cough up thick yellow, green, hopson, or bloody sputum. 2. You have difficulty breathing, pain in your chest, or your skin or nails look hopson or blue. 3. You have shaking chills or a temperature over 102 F (39 C). Prescriptions ordered this encounter Disp Refills Start End FLUTICASONE PROPIONATE 50 MCG/ACTUAT* 1 Rudi* 0 06/25/2019 Route: EACH NOSTRIL Sig: Use 2 Sprays in each nostril once daily. Rinse mouth after use. Encounter Status:Closed by MEAGAN SANTILLAN.CHRISTELLE COLE on 06/25/19 [facility] PROGRESSon 06-25-2019 PROGRESS HNO ID: [id number] Author: Christelle Lucero Service: ? Author Type: Nurse Practitioner Type: Progress Notes Filed: 06/25/2019 8:42 AM Note Text: Subjective HPI Aime Ryan is a 58 year old female who presents with sinus pressure, ear pressure, and swollen glands. She has taken Excedrin as needed. No known fever, shortness of breath, or chest pain. Review of Systems Constitutional: Negative for chills, fever and malaise/fatigue. HENT: Positive for congestion and sinus pain. Negative for ear pain (only pressure) and sore throat. Respiratory: Positive for cough and sputum production. Negative for shortness of breath and wheezing. Cardiovascular: Negative for chest pain. Skin: Negative for itching and rash. Neurological: Negative for dizziness and headaches. BP 128/82 Pulse 64 Temp 36.4 ?C (97.5 ?F) (Tympanic) Resp 16 Wt 55.6 kg (122 lb 9.6 oz) SpO2 99% BMI 20.56 kg/m? PAST MEDICAL HISTORY Diagnosis Date - Adjustment disorder with depressed mood - Personal history of colonic polyps Colon polyps - Unspecified constipation Constipation - Unspecified hemorrhoids without mention of complication Hemorrhoids PAST SURGICAL HISTORY Procedure Laterality Date - APPENDECTOMY - COLONOSCOP W/ OR W/O [facility] SPEC 2004 Colonoscopy - L'SCOPE DX W/WO BRUSHINGS/WASHINGS Laparoscopy - REMOVAL OF OVARY/TUBE(S) Salpingo-oophorectomy - REMOVAL OF TONSILS,<14 Y/O Tonsillectomy - TOTAL ABDOM HYSTERECTOMY Hysterectomy, HALLEY ALLERGIES Patient has no known allergies. MEDICATIONS cyclobenzaprine 10 mg tablet Take 10 mg by mouth three times daily as needed. Taking one tablet daily Estradiol (VIVELLE-DOT) 0.0375 mg/24 hr TWICE WEEKLY FOLIC ACID 400 MCG TAB take three tablets daily = 1200 mcg CALCIUM 500 MG TAB Take one(1) tablet two(2) times daily. DAILY MULTIPLE TAB FAMILY HISTORY Problem Relation Age of Onset - Cancer Father Abdomen - Cancer Paternal Grandfather ? where - Hypertension Mother - Cancer Mother lymphoma-stomach and liver Social History Tobacco Use - Smoking status: Current Every Day Smoker Packs/day: 1.00 Years: 20.00 Pack years: 20.00 Types: Cigarettes - Smokeless tobacco: Never Used Substance Use Topics - Alcohol use: No - Drug use: No Objective Physical Exam Constitutional: She is oriented to person, place, and time and well-developed, well-nourished, and in no distress. HENT: Head: Normocephalic and atraumatic. Right Ear: Tympanic membrane is bulging. Tympanic membrane is not erythematous. No middle ear effusion. Left Ear: Tympanic membrane is bulging. Tympanic membrane is not erythematous. No middle ear effusion. Nose: Mucosal edema and rhinorrhea present. Right sinus exhibits no maxillary sinus tenderness and no frontal sinus tenderness. Left sinus exhibits no maxillary sinus tenderness and no frontal sinus tenderness. Mouth/Throat: Mucous membranes are not pale, not dry and not cyanotic. No uvula swelling. Posterior oropharyngeal erythema (mild with PND) present. No posterior oropharyngeal edema. Eyes: Conjunctivae are normal. Cardiovascular: Normal rate, regular rhythm, normal heart sounds and intact distal pulses. Exam reveals no gallop and no friction rub. No murmur heard. Pulmonary/Chest: Effort normal and breath sounds normal. No respiratory distress. She has no wheezes. She has no rales. She exhibits no tenderness. Musculoskeletal: General: No edema. Lymphadenopathy: She has cervical adenopathy. Neurological: She is alert and oriented to person, place, and time. Gait normal. Skin: Skin is warm and dry. No rash noted. She is not diaphoretic. ASSESSMENT/PLAN: 1. Viral URI - ICD9: 465.9, ICD10: J06.9 - Discussed viral etiology and rationale for treatment. - Symptomatic treatment with prn analgesia - Supportive care with fluids and rest - FLUTICASONE PROPIONATE 50 MCG/ACTUATION NASAL SPRAY,SUSPENSION Patient understands if he/she develops any shortness of breath, chest pain, or persistent fever, they should be taken to the ER immediately or call 911. All of the above discussed with the patient in detail. Patient is in agreement with the above plan. Treatment and plan of care discussed including course of treatment, possible medication side effects, and what to watch for in regards to worsening signs and symptoms. All questions addressed. Christelle Lucero APRN.[employer]OL HEALTH ASSISTANT Normal [facility] Vital Signs Date Time Vital Sign Value Performing Clinician Facility 03-01-2025 12:53-0400 Body temperature 98.4 [degF] Dr. Rneato Bonilla MD Work Phone: [facility] 03-01-2025 12:53-0400 Diastolic blood pressure 62 mm[Hg] Dr. Renato Bonilla MD Work Phone: [facility] 03-01-2025 12:53-0400 Heart rate 56 /min Dr. Renato Bonilla MD Work Phone: [facility] 03-01-2025 12:53-0400 Respiratory rate 18 /min Dr. Renato Bonilla MD Work Phone: [facility] 03-01-2025 12:53-0400 SaO2% (BldA) [Mass fraction] 100 % Dr. Renato Bonilla MD Work Phone: [facility] 03-01-2025 12:53-0400 Systolic blood pressure 120 mm[Hg] Dr. Renato Bonilla MD Work Phone: [facility] 03-01-2025 05:43-0400 Body mass index (BMI) [Ratio] 22.6 kg/m2 Dr. Renato Bonilla MD Work Phone: [facility] 03-01-2025 05:43-0400 Body weight 58.[address] Renato Bonilla MD Work Phone: [facility] 02-28-2025 12:40-0400 Body height 160.[address] Renato Bonilla MD Work Phone: 9(395)478-596784 [place] [address] 02-28-2025 11:48-0400 Body temperature 98.6 [degF] Dr. Renato Bonilla MD Work Phone: 3(791)716-942391 [place] [address] 02-28-2025 11:48-0400 Diastolic blood pressure 60 mm[Hg] Dr. Renato Bonilla MD Work Phone: 0(461)961-512891 [place] [address] 02-28-2025 11:48-0400 Heart rate 58 /min Dr. Renato Bonilla MD Work Phone: 5(930)697-227191 [place] [address] 02-28-2025 11:48-0400 Respiratory rate 15 /min Dr. Renato Bonilla MD Work Phone: 1(185)557-685091 [place] [address] 02-28-2025 11:48-0400 SaO2% (BldA) [Mass fraction] 100 % Dr. Renato Bonilla MD Work Phone: 8(287)070-872891 [place] [address] 02-28-2025 11:48-0400 Systolic blood pressure 107 mm[Hg] Dr. Renato Bonilla MD Work Phone: 9(363)203-399691 [place] [address] 02-28-2025 09:22-0400 Body height 160.[address] Renato Bonilla MD Work Phone: 0(710)301-250591 [place] [address] 02-28-2025 09:22-0400 Body mass index (BMI) [Ratio] 22.8 kg/m2 Dr. Renato Bonilla MD Work Phone: 9(877)930-901591 [place] [address] 02-28-2025 09:22-0400 Body temperature 97.6 [degF] Dr. Renato Bonilla MD Work Phone: 3(404)773-012891 [place] [address] 02-28-2025 09:22-0400 Body weight 58.[address] Renato Bonilla MD Work Phone: 1(077)282-888084 [place] [address] 02-28-2025 09:22-0400 Diastolic blood pressure 70 mm[Hg] Dr. Renato Bonilla MD Work Phone: 2(987)579-125791 [place] [address] 02-28-2025 09:22-0400 Heart rate 83 /min Dr. Renato Bonilla MD Work Phone: [facility] 02-28-2025 09:22-0400 Respiratory rate 14 /min Dr. Renato Bonilla MD Work Phone: [facility] 02-28-2025 09:22-0400 SaO2% (BldA) [Mass fraction] 98 % Dr. Renato Bonilla MD Work Phone: 3(390)216-055184 [place] [address] 02-28-2025 09:22-0400 Systolic blood pressure 126 mm[Hg] Dr. Renato Bonilla MD Work Phone: 8(795)618-493291 [place] [address] 12-02-2024 07:02-0400 Body height 162.[address] Renato Bonilla MD Work Phone: 2(202)875-089391 [place] [address] 12-02-2024 07:02-0400 Body mass index (BMI) [Ratio] 22.8 kg/m2 Dr. Renato Bonilla MD Work Phone: 9(484)636-279391 [place] [address] 12-02-2024 07:02-0400 Body weight 60.[address] Renato Bonilla MD Work Phone: 9(504)974-380691 [place] [address] 12-02-2024 07:02-0400 Diastolic blood pressure 68 mm[Hg] Dr. Renato Bonilla MD Work Phone: 2(100)686-352284 [place] [address] 12-02-2024 07:02-0400 Heart rate 60 /min Dr. Renato Bonilla MD Work Phone: 8(795)083-080684 [place] [address] 12-02-2024 07:02-0400 Respiratory rate 18 /min Dr. Renato Bonilla MD Work Phone: [facility] 12-02-2024 07:02-0400 SaO2% (BldA) [Mass fraction] 98 % Dr. Renato Bonilla MD Work Phone: 3(993)327-811384 [place] [address] 12-02-2024 07:02-0400 Systolic blood pressure 118 mm[Hg] Dr. Renato Bonilla MD Work Phone: 0(830)256-644391 [place] [address] 10-21-2024 15:33-0400 Body height 162.[address] Renato Bonilla MD Work Phone: [facility] 10-21-2024 08:19-0400 Body mass index (BMI) [Ratio] 23.3 kg/m2 Dr. Renato Bonilla MD Work Phone: [facility] 10-21-2024 08:19-0400 Body weight 61.[address] Renato Bonilla MD Work Phone: [facility] 10-21-2024 08:19-0400 Diastolic blood pressure 72 mm[Hg] Dr. Renato Bonilla MD Work Phone: [facility] 10-21-2024 08:19-0400 Heart rate 55 /min Dr. Renato Bonilla MD Work Phone: [facility] 10-21-2024 08:19-0400 Respiratory rate 18 /min Dr. Renato Bonilla MD Work Phone: [facility] 10-21-2024 08:19-0400 SaO2% (BldA) [Mass fraction] 100 % Dr. Renato Bonilla MD Work Phone: [facility] 10-21-2024 08:19-0400 Systolic blood pressure 122 mm[Hg] Dr. Renato Bonilla MD Work Phone: [facility] 10-18-2024 07:00-0400 Body temperature 96.8 [degF] Jesus La MD Work Phone: [facility] 10-18-2024 07:00-0400 Diastolic blood pressure 72 mm[Hg] Jesus La MD Work Phone: [facility] 10-18-2024 07:00-0400 Heart rate 58 /min Jesus La MD Work Phone: [facility] 10-18-2024 07:00-0400 Respiratory rate 18 /min Jesus La MD Work Phone: [facility] 10-18-2024 07:00-0400 SaO2% (BldA) [Mass fraction] 98 % Jesus La MD Work Phone: [facility] 10-18-2024 07:00-0400 Systolic blood pressure 119 mm[Hg] Jesus La MD Work Phone: [facility] 10-17-2024 17:53-0400 Body height 160 cm Jesus La MD Work Phone: [facility] 10-17-2024 17:53-0400 Body mass index (BMI) [Ratio] 24.82 kg/m2 Jesus La MD Work Phone: [facility] 10-17-2024 17:53-0400 Body weight 63.56 kg Jesus La MD Work Phone: [facility] 10-10-2024 07:34-0400 Body height 160 cm Madeline Faryman [employer]PORATE [employer]ISTANT Work Phone: [facility] 10-10-2024 07:34-0400 Body mass index (BMI) [Ratio] 24.45 kg/m2 Madeline Faryman [employer]PORATE [employer]ISTANT Work Phone: [facility] 10-10-2024 07:34-0400 Body weight 62.6 kg Madeline Faryman [employer]PORATE [employer] ASSISTANT Work Phone: [facility] 10-10-2024 07:34-0400 Diastolic blood pressure 66 mm[Hg] Madeline Faryman [employer]PORATE [employer] ASSISTANT Work Phone: [facility] 10-10-2024 07:34-0400 Heart rate 62 /min Madeline Faryman [employer]PORATE [employer]ISTANT Work Phone: [facility] 10-10-2024 07:34-0400 Systolic blood pressure 130 mm[Hg] Madeline Faryman [employer]PORATE [employer] ASSISTANT Work Phone: [facility] 03-28-2024 14:10-0400 Body height 160 cm Judi Ledezma MD Work Phone: [facility] 03-28-2024 14:10-0400 Body mass index (BMI) [Ratio] 23.03 kg/m2 Judi Ledezma MD Work Phone: [facility] 03-28-2024 14:10-0400 Body weight 58.97 kg Judi Ledezma MD Work Phone: [facility] 03-28-2024 14:10-0400 Diastolic blood pressure 68 mm[Hg] Judi Ledezma MD Work Phone: [facility] 03-28-2024 14:10-0400 Heart rate 62 /min Judi Ledezma MD Work Phone: [facility] 03-28-2024 14:10-0400 SaO2% (BldA) [Mass fraction] 100 % Judi Ledezma MD Work Phone: [facility] 03-28-2024 14:10-0400 Systolic blood pressure 130 mm[Hg] Judi Ledezma MD Work Phone: [facility] 03-07-2024 08:40-0400 Body height 162.6 cm Madeline Fuan [employer]PORATE [employer]ISTANT Work Phone: [facility] 03-07-2024 08:40-0400 Body mass index (BMI) [Ratio] 22.31 kg/m2 Madeline Faryman CORPORATE [employer] HE[employer] ASSISTANT Work Phone: [facility] 03-07-2024 08:40-0400 Body weight 58.97 kg Madeline Faryman CORPORATE [employer] ASSISTANT Work Phone: [facility] 03-07-2024 08:40-0400 Diastolic blood pressure 67 mm[Hg] Madeline Villaltaymruby [employer]PORATE [employer]ISTANT Work Phone: [facility] 03-07-2024 08:40-0400 Heart rate 69 /min Madeline Razo [employer]PORATE [employer] ASSISTANT Work Phone: [facility] 03-07-2024 08:40-0400 SaO2% (BldA) [Mass fraction] 100 % Madeline Razo [employer]PORATE [employer] ASSISTANT Work Phone: 0(499)605-115817 [place] [address] 03-07-2024 08:40-0400 Systolic blood pressure 116 mm[Hg] Madeline Razo [employer]PORATE [employer]ISTANT Work Phone: 2(447)615-894617 [place] [address] 03-07-2024 08:16-0400 Body height 162.6 cm Lynn Richardson MD Work Phone: 9(907)217-802417 [place] [address] 03-07-2024 08:16-0400 Body mass index (BMI) [Ratio] 22.31 kg/m2 Lynn Richardson MD Work Phone: 5(000)723-901117 [place] [address] 03-07-2024 08:16-0400 Body weight 58.97 kg Lynn Richardson MD Work Phone: 9(522)563-861317 [place] [address] 03-07-2024 08:16-0400 Diastolic blood pressure 75 mm[Hg] Lynn Richardson MD Work Phone: 0(185)154-875217 [place] [address] 03-07-2024 08:16-0400 Heart rate 66 /min Lynn Richardson MD Work Phone: 0(480)728-078217 [place] [address] 03-07-2024 08:16-0400 Systolic blood pressure 129 mm[Hg] Lynn Richardson MD Work Phone: 4(251)038-803317 [place] [address] 09-14-2023 09:09-0400 Body mass index (BMI) [Ratio] 22.85 kg/m2 Lynn Richardson MD Work Phone: 6(951)125-915017 [place] [address] 09-14-2023 09:09-0400 Body weight 60.37 kg Lynn Richardson MD Work Phone: 6(714)246-274417 [place] [address] 09-14-2023 09:09-0400 Diastolic blood pressure 73 mm[Hg] Lynn Richardson MD Work Phone: 1(778)697-899817 [place] [address] 09-14-2023 09:09-0400 Heart rate 71 /min Lynn Richardson MD Work Phone: 5(929)757-381917 [place] [address] 09-14-2023 09:09-0400 SaO2% (BldA) [Mass fraction] 100 % Lynn Richardson MD Work Phone: 4(439)229-160417 [place] [address] 09-14-2023 09:09-0400 Systolic blood pressure 122 mm[Hg] Lynn Richardson MD Work Phone: 9(316)195-991817 [place] [address] 09-14-2023 08:01-0400 Body height 162.6 cm Lynn Richardson MD Work Phone: 7(702)892-726517 [place] [address] 09-14-2023 08:01-0400 Body mass index (BMI) [Ratio] 22.31 kg/m2 Lynn Richardson MD Work Phone: 3(326)375-180917 [place] [address] 09-14-2023 08:01-0400 Body weight 58.97 kg Lynn Richardson MD Work Phone: 7(426)354-989317 [place] [address] 09-14-2023 08:01-0400 Diastolic blood pressure 75 mm[Hg] Lynn Richardson MD Work Phone: 0(439)214-059217 [place] [address] 09-14-2023 08:01-0400 Heart rate 62 /min Lynn Richardson MD Work Phone: 5(373)965-955117 [place] [address] 09-14-2023 08:01-0400 Systolic blood pressure 126 mm[Hg] Lynn Richardson MD Work Phone: 0(858)020-694417 [place] [address] 07-27-2023 13:20-0500 Body temperature 98.1 [degF] Dr. Renato Bonilla Work Phone: [facility] 07-27-2023 13:20-0500 Diastolic blood pressure 69 mm[Hg] Dr. Renato Bonilla Work Phone: 4(586)820-212191 [place] [address] 07-27-2023 13:20-0500 Heart rate 63 /min Dr. Renato Bonilla Work Phone: 7(776)222-312991 [place] [address] 07-27-2023 13:20-0500 Respiratory rate 18 /min Dr. Renato Bonilla Work Phone: 7(039)876-839091 [place] [address] 07-27-2023 13:20-0500 SaO2% (BldA) [Mass fraction] 99 % Dr. Renato Bonilla Work Phone: 7(070)133-370791 [address] [place] [address] 07-27-2023 13:20-0500 Systolic blood pressure 114 mm[Hg] Dr. Renato Bonilla Work Phone: 2(325)576-226791 [place] [address] 07-27-2023 06:00-0500 Body mass index (BMI) [Ratio] 21.9 kg/m2 Dr. Renato Bonilla Work Phone: 1(748)140-953391 [place] [address] 07-27-2023 06:00-0500 Body weight 57.[address] Renato Bonilla Work Phone: 3(302)503-449391 [place] [address] 07-27-2023 00:27-0500 Body height 162.[address] Renato Bonilla Work Phone: 1(180)428-474191 [place] [address] 07-17-2023 14:19-0500 Body height 162.[address] Renato Bonilla Work Phone: 8(182)686-400791 [place] [address] 07-17-2023 14:19-0500 Body mass index (BMI) [Ratio] 21.9 kg/m2 Dr. Renato Bonilla Work Phone: 1(279)256-613491 [place] [address] 07-17-2023 14:19-0500 Body weight 58.[address] Renato Bonilla Work Phone: 3(046)595-027791 [place] [address] 07-17-2023 14:19-0500 Diastolic blood pressure 86 mm[Hg] Dr. Renato Bonilla Work Phone: 7(077)639-961591 [place] [address] 07-17-2023 14:19-0500 Heart rate 60 /min Dr. Renato Bonilla Work Phone: 9(866)711-296791 [place] [address] 07-17-2023 14:19-0500 Respiratory rate 16 /min Dr. Renato Bonilla Work Phone: [facility] 07-17-2023 14:19-0500 Systolic blood pressure 149 mm[Hg] Dr. Renato Bonilla Work Phone: [facility] 06-19-2023 10:36-0500 Body height 162.[address] Renato Bonilla Work Phone: [facility] 06-16-2023 14:00-0500 Body temperature 97.7 [degF] Dr. Renato Bonilla Work Phone: [facility] 06-16-2023 14:00-0500 Diastolic blood pressure 69 mm[Hg] Dr. Renato Bonilla Work Phone: 0(378)453-564084 [place] [address] 06-16-2023 14:00-0500 Heart rate 79 /min Dr. Renato Bonilla Work Phone: 2(420)469-704284 [place] [address] 06-16-2023 14:00-0500 Respiratory rate 13 /min Dr. Renato Bonilla Work Phone: [facility] 06-16-2023 14:00-0500 SaO2% (BldA) [Mass fraction] 98 % Dr. Renato Bonilla Work Phone: [facility] 06-16-2023 14:00-0500 Systolic blood pressure 129 mm[Hg] Dr. Renato Bonilla Work Phone: [facility] 06-15-2023 12:58-0500 Body height 162.[address] Renato Bonilla Work Phone: [facility] 06-15-2023 12:58-0500 Body mass index (BMI) [Ratio] 20.9 kg/m2 Dr. Renato Bonilla Work Phone: [facility] 06-15-2023 12:58-0500 Body weight 55.[address] Renato Bonilla Work Phone: [facility] 06-08-2023 11:05-0500 Body height 162.6 cm Lynn Richardson MD Work Phone: 3(068)594-335317 [place] [address] 06-08-2023 11:05-0500 Body mass index (BMI) [Ratio] 20.94 kg/m2 Lynn Richardson MD Work Phone: 6(614)967-618517 [place] [address] 06-08-2023 11:05-0500 Body weight 55.34 kg Lynn Richardson MD Work Phone: 5(230)592-757917 [place] [address] 06-08-2023 11:05-0500 Diastolic blood pressure 71 mm[Hg] Lynn Richardson MD Work Phone: 6(507)445-498317 [place] [address] 06-08-2023 11:05-0500 Heart rate 73 /min Lynn Richardson MD Work Phone: 6(660)794-017717 [place] [address] 06-08-2023 11:05-0500 Systolic blood pressure 131 mm[Hg] Lynn Richardson MD Work Phone: 9(993)394-949217 [place] [address] 06-08-2023 09:29-0500 Body height 162.6 cm Lynn Richardson MD Work Phone: 5(151)207-151717 [place] [address] 06-08-2023 09:29-0500 Body mass index (BMI) [Ratio] 20.94 kg/m2 Lynn Richardson MD Work Phone: 5(113)114-330517 [place] [address] 06-08-2023 09:29-0500 Body weight 55.34 kg Lynn Richardson MD Work Phone: 4(110)849-533417 [place] [address] 06-08-2023 09:29-0500 Diastolic blood pressure 82 mm[Hg] Lynn Richardson MD Work Phone: 4(216)074-839317 [place] [address] 06-08-2023 09:29-0500 Heart rate 80 /min Lynn Richardson MD Work Phone: 5(315)664-349717 [place] [address] 06-08-2023 09:29-0500 Systolic blood pressure 144 mm[Hg] Lynn Richardson MD Work Phone: 1(159)489-109117 [place] [address] 06-07-2023 13:48-0500 Diastolic blood pressure 61 mm[Hg] Dr. Renato Bonilla Work Phone: [facility] 06-07-2023 13:48-0500 Heart rate 57 /min Dr. Renato Bonilla Work Phone: [facility] 06-07-2023 13:48-0500 Systolic blood pressure 109 mm[Hg] Dr. Renato Bonilla Work Phone: 4(069)989-035184 [place] [address] 06-07-2023 13:08-0500 Body height 162.[address] Renato Bonilla Work Phone: 6(480)058-740384 [place] [address] 06-07-2023 13:08-0500 Body mass index (BMI) [Ratio] 20.5 kg/m2 Dr. Renato Bonilla Work Phone: 9(203)802-377584 [place] [address] 06-07-2023 13:08-0500 Body temperature 97.7 [degF] Dr. Renato Bonilla Work Phone: 1(760)304-209684 [place] [address] 06-07-2023 13:08-0500 Body weight 54.[address] Renato Bonilla Work Phone: 5(299)267-547284 [place] [address] 06-07-2023 13:08-0500 Respiratory rate 18 /min Dr. Renato Bonilla Work Phone: 8(572)151-951284 [place] [address] 06-07-2023 13:08-0500 SaO2% (BldA) [Mass fraction] 100 % Dr. Renato Bonilla Work Phone: [facility] 06-05-2023 08:26-0500 Body temperature 97.2 [degF] Dr. Renato Bonilla Work Phone: 4(840)253-391484 [place] [address] 06-05-2023 08:26-0500 Diastolic blood pressure 72 mm[Hg] Dr. Renato Bonilla Work Phone: [facility] 06-05-2023 08:26-0500 Heart rate 64 /min Dr. Renato Bonilla Work Phone: [facility] 06-05-2023 08:26-0500 Respiratory rate 16 /min Dr. Renato Bonilla Work Phone: [facility] 06-05-2023 08:26-0500 SaO2% (BldA) [Mass fraction] 99 % Dr. Renato Bonilla Work Phone: [facility] 06-05-2023 08:26-0500 Systolic blood pressure 115 mm[Hg] Dr. Renato Bonilla Work Phone: [facility] 06-05-2023 06:33-0500 Body height 162.[address] Renato Bonilla Work Phone: [facility] 06-05-2023 06:33-0500 Body mass index (BMI) [Ratio] 20.2 kg/m2 Dr. Renato Bonilla Work Phone: [facility] 06-05-2023 06:33-0500 Body weight 53.[address] Renato Bonilla Work Phone: [facility] 05-17-2023 14:29-0500 Body height 162.[address] Renato Bonilla Work Phone: [facility] 05-17-2023 14:29-0500 Body mass index (BMI) [Ratio] 20.9 kg/m2 Dr. Renato Bonilla Work Phone: [facility] 05-17-2023 14:29-0500 Body weight 55.[address] Renato Bonilla Work Phone: [facility] 05-17-2023 14:29-0500 Diastolic blood pressure 83 mm[Hg] Dr. Renato Bnoilla Work Phone: [facility] 05-17-2023 14:29-0500 Respiratory rate 16 /min Dr. Renato Bonilla Work Phone: [facility] 05-17-2023 14:29-0500 Systolic blood pressure 175 mm[Hg] Dr. Renato Bonilla Work Phone: [facility] 05-17-2023 13:09-0500 Body temperature 98.2 [degF] Dr. Renato Bonilla Work Phone: [facility] 05-17-2023 13:09-0500 Body weight 55.[address] Renato Bonilla Work Phone: [facility] 05-17-2023 13:09-0500 Diastolic blood pressure 84 mm[Hg] Dr. Renato Bonilla Work Phone: [facility] 05-17-2023 13:09-0500 Heart rate 69 /min Dr. Renato Bonilla Work Phone: 2(787)021-663084 [place] [address] 05-17-2023 13:09-0500 Respiratory rate 16 /min Dr. Renato Bonilla Work Phone: 6(407)156-199784 [place] [address] 05-17-2023 13:09-0500 SaO2% (BldA) [Mass fraction] 100 % Dr. Renato Bonilla Work Phone: 0(518)010-424784 [place] [address] 05-17-2023 13:09-0500 Systolic blood pressure 165 mm[Hg] Dr. Renato Bonilla Work Phone: 3(199)567-207384 [place] [address] 05-17-2023 11:41-0500 Body mass index (BMI) [Ratio] 20.7 kg/m2 Dr. Renato Bonilla Work Phone: 1(896)236-121184 [place] [address] 05-17-2023 11:41-0500 Body weight 54.[address] Renato Bonilla Work Phone: 1(844)680-726084 [place] [address] 05-17-2023 11:41-0500 Diastolic blood pressure 100 mm[Hg] Dr. Renato Bonilla Work Phone: 6(823)338-111084 [place] [address] 05-17-2023 11:41-0500 Heart rate 63 /min Dr. Renato Bonilla Work Phone: 6(205)125-044384 [place] [address] 05-17-2023 11:41-0500 Respiratory rate 16 /min Dr. Renato Bonilla Work Phone: [facility] 05-17-2023 11:41-0500 Systolic blood pressure 178 mm[Hg] Dr. Renato Bonilla Work Phone: [facility] 04-25-2022 13:19-0400 Body height 162 cm Renato-Chi Chad Other Phone: [facility] 04-25-2022 13:19-0400 Body temperature 97.7 [degF] Renato-Chi Chad Other Phone: [facility] 04-25-2022 13:19-0400 Diastolic blood pressure 89 mm[Hg] Renato-Chi Chad Other Phone: [facility] 04-25-2022 13:19-0400 Heart rate 75 /min Renato-Chi Chad Other Phone: [facility] 04-25-2022 13:19-0400 Respiratory rate 14 /min Renato-Chi Chad Other Phone: [facility] 04-25-2022 13:19-0400 SaO2% (BldA) [Mass fraction] 99 % Renato-Chi Chad Other Phone: [facility] 04-25-2022 13:19-0400 Systolic blood pressure 143 mm[Hg] Renato-Chi Chad Other Phone: [facility] 08-27-2021 12:55-0500 Body height 162.5 cm Text Entry Free [facility] 08-27-2021 12:55-0500 Body temperature 98.06 [degF] Text Entry Free [facility] 08-27-2021 12:55-0500 Diastolic blood pressure 89 mm[Hg] Text Entry [facility] 08-27-2021 12:55-0500 Heart rate 68 /min Text Entry [facility] 08-27-2021 12:55-0500 Respiratory rate 16 /min Text Entry Free [facility] 08-27-2021 12:55-0500 SaO2% (BldA) [Mass fraction] 100 % Text Entry [facility] 08-27-2021 12:55-0500 Systolic blood pressure 163 mm[Hg] Text Entry Free [facility] 06-19-2021 11:51-0500 Body height 162.5 cm Text Entry Free [facility] 06-19-2021 11:51-0500 Body temperature 97.7 [degF] Text Entry Free [facility] 06-19-2021 11:51-0500 Diastolic blood pressure 98 mm[Hg] Text Entry Free [facility] 06-19-2021 11:51-0500 Heart rate 75 /min Text Entry Free [facility] 06-19-2021 11:51-0500 Respiratory rate 16 /min Text Entry [facility] 06-19-2021 11:51-0500 SaO2% (BldA) [Mass fraction] 100 % Text Entry Free [facility] 06-19-2021 11:51-0500 Systolic blood pressure 173 mm[Hg] Text Entry Free [facility] Encounters Encounter Date Encounter Type Care Provider Facility Start: 03-07-2025 ambulatory Renato Chi Chad Facility:[facility] Start: 03-06-2025 ambulatory Renato Chi Chad Facility:[facility] Start: 03-01-2025 Non-patient / Non-visit Dr. Castaneda [facility] Work Phone: Start: 02-28-2025 Non-patient / Non-visit José Luis Galloway nd [facility] Start: 02-28-2025 ambulatory Renato Chi Chad Facility:[facility] Start: 02-28-2025 End: 03-01-2025 Evaluation and management of inpatient Dr. Tracy Chow DO -[facility] Work Phone: Start: 02-28-2025 Emergency department patient visit Dr. Renato Bonilla MD Work Phone: -Emergency Department Work Phone: Start: 02-27-[address] Renato Bonilla MD -Laboratory Phy Office 3rd Msr Start: 02-27-2025 ambulatory Renato Chi Chad Facility:[facility] Start: 02-25-2025 ambulatory Renato Chi Chad Facility:[facility] Start: 02-25-2025 End: 02-26-2025 Evaluation and management of inpatient RENATO CHI CHAD [facility] Start: 02-24-2025 End: 02-24-[address] Renato Bonilla MD Work Phone: -Laboratory Phy Office 3rd Flr Start: 02-24-2025 End: 02-24-[address] Renato Bonilla MD -Laboratory Phy Office 3rd Flr Start: 02-24-2025 End: 02-24-2025 ambulatory Renato Salinas Carpenterok Facility:[facility] Start: 02-19-2025 End: 02-19-[address] Renato Bonilla MD Work Phone: -Laboratory Phy Office 3rd Flr Start: 02-19-2025 End: 02-19-[address] Renato Bonilla MD -Laboratory Phy Office 3rd Flr Start: 02-19-2025 End: 02-19-2025 ambulatory Renato Salinas Chad Facility:[facility] Start: 12-02-2024 End: 12-02-2024 Patient encounter procedure Iva Calhoun NP-Shar -[facility] Work Phone: Start: 12-02-2024 End: 12-02-[address] Renato Bonilla MD Work Phone: [facility] Work Phone: Start: 11-29-2024 End: 11-29-[address] Renato Bonilla MD Work Phone: [facility] Work Phone: Start: 11-29-2024 End: 11-29-[address] Renato Bonilla MD -[facility] Work Phone: Start: 11-29-2024 End: 11-29-2024 ambulatory Renato Salinas [place] Facility:[facility] Start: 11-28-2024 End: 11-28-2024 Emergency department patient visit [facility] Start: 11-11-2024 End: 11-11-[address] Renato Bonilla MD Work Phone: [facility] Work Phone: Start: 11-11-2024 End: 11-11-[address] Renato Bonilla MD -Laboratory Specimen Work Phone: Start: 11-11-2024 End: 11-11-2024 ambulatory [facility] Facility:[facility] Start: 10-31-2024 Non-patient / Non-visit Iva swan NP-C -[facility] Work Phone: Start: 10-31-2024 ambulatory Iva Calhoun [employer] Facili ty:[facility] Start: 10-31-2024 Non-patient / Non-visit Dr. Zelalem myers MD -[facility] Start: 10-31-2024 End: 10-31-[address] Renato Bonilla MD Work Phone: [facility] Work Phone: Start: 10-31-2024 End: 10-31-[address] Renato Bonilla MD -Ultrasound, [facility] Work Phone: Start: 10-31-2024 End: 10-31-2024 ambulatory Renato Salinas Chad Facility:[facility] Start: 10-29-2024 Registered Referred Iva Calhoun FOOD DEMONSTRATOR -C -Cardiovascular Services Work Phone: Start: 10-29-2024 ambulatory Iva Calhoun [employer] DEMONSTRATOR Facili ty:[facility] Start: 10-29-2024 Non-patient / Non-visit Dr. Jeff pereira MD -[facility] Work Phone: Start: 10-26-2024 End: 10-26-[address] Renato Bonilla MD -Laboratory Work Phone: Start: 10-26-2024 End: 10-26-2024 ambulatory [facility] Facility:[facility] Start: 10-21-2024 End: 10-21-2024 Patient encounter procedure Iva Calhoun NP-C -[facility] Work Phone: Start: 10-21-2024 End: 10-21-2024 ambulatory [facility] Start: 10-17-2024 End: 04-18-2025 ambulatory RENATO-CHI CHAD [facility] Start: 10-17-2024 End: 10-18-2024 Evaluation and management of inpatient Jesus La MD Work Phone: [facility] Comment on above: Near syncope (Primar y Dx); Atherosclerotic ulcer of aorta Start: 10-10-2024 ambulatory LYNN RICHARDSON Facility:[facility] Start: 10-10-2024 End: 10-10-2024 Subsequent hospital visit by physician Madeline NGUYEN Work Phone: [facility] Comment on above: Arrived Start: 04-18-2024 End: 04-18-2024 ambulatory Renato Bonilla Facility:[facility] Start: 03-28-2024 End: 03-28-2024 Office outpatient new 45 minutes Judi Ledezma MD Work Phone: [facility] Comment on above: SVT (supraventricula r tachycardia) (HCC) (Primary Dx); Palpitations; Syncope and collapse; Vasovagal syncope; Bradycardia; Coronary artery disease involving [place] coronary artery of [place] heart without angina pectoris; History of percutaneous coronary intervention Start: 03-07-2024 End: 03-07-2024 Office outpatient visit 15 minutes Lynn Richardson MD Work Phone: [facility] Comment on above: Penetrating ulcer of aorta (Primary Dx) Start: 03-07-2024 ambulatory CHRISTELLE Canchola ty:[facility] Start: 03-07-2024 End: 03-07-2024 Subsequent hospital visit by physician Lynn Richardson MD Work Phone: [facility] Comment on above: Arrived Start: 02-27-2024 End: 02-27-2024 Patient encounter procedure [facility] Provider [facility] Start: 02-27-2024 End: 03-08-2024 Telephone encounter Judi Ledezma MD Work Phone: [facility] Comment on above: Abstract Start: 10-21-2023 End: 10-21-[address] Renato Bonilla Work Phone: [facility] Work Phone: Start: 10-21-2023 End: 10-21-[address] Renato Bonilla Work Phone: [facility]-Laboratory Work Phone: Start: 09-19-2023 Non-patient / Non-visit Dr. Lonny Bennett Work Phone: [facility] Start: 09-19-2023 End: 09-19-[address] Jeri Bennett Work Phone: [facility] Work Phone: Start: 09-19-2023 End: 09-19-[address] Jeri Bennett Work Phone: [facility]-Cardiovascul ar Services Work Phone: Start: 09-14-2023 End: 09-14-2023 Office outpatient visit 25 minutes Lynn Richardson MD Work Phone: [facility] Comment on above: Penetrating atherosc lerotic ulcer of aorta (Primary Dx); Tachycardia Start: 09-14-2023 End: 09-14-2023 Subsequent hospital visit by physician Lynn Richardson MD Work Phone: [facility] Comment on above: Arrived Start: 08-18-2023 End: 08-18-[address] Renato Bonilla Work Phone: [facility] Work Phone: Start: 08-18-2023 End: 08-18-[address] Renato Bonilla Work Phone: [facility]-Pulmonary Services/Neurology Work Phone: Start: 08-04-2023 End: 08-04-[address] Renato Bonilla Work Phone: [facility] Work Phone: Start: 08-04-2023 End: 08-04-[address] Renato Bonilla Work Phone: [facility]-Cardiovascul ar Services Work Phone: Start: 08-01-2023 End: 08-01-[address] Renato Bonilla Work Phone: [facility] Work Phone: Start: 08-01-2023 End: 08-01-[address] Renato Bonilla Work Phone: [facility]-Laboratory, Phy Office 3rd Flr Start: 07-27-2023 Non-patient / Non-visit Dr. Lonny Bonilla Work Phone: [facility] Work Phone: Start: 07-26-2023 End: 07-27-2023 Evaluation and management of inpatient Dr. Renato Bonilla Work Phone: [facility]-Progressive Care Unit Work Phone: Start: 07-26-2023 End: 07-27-[address] Renato Bonilla Work Phone: [facility] Work Phone: Start: 07-17-2023 End: 07-17-[address] Renato Bonilla Work Phone: [facility] Work Phone: Start: 07-17-2023 End: 07-17-[address] Renato Bonilla Work Phone: [facility] Work Phone: Start: 06-29-2023 End: 06-29-[address] Renato Bonilla Work Phone: [facility] Work Phone: Start: 06-29-2023 End: 06-29-[address] Renato Bonilla Work Phone: [facility]-Laboratory Work Phone: Start: 06-19-2023 End: 06-19-[address] Renato Bonilla Work Phone: [facility] Work Phone: Start: 06-16-2023 Non-patient / Non-visit Dr. Lonny Bonilla Work Phone: [facility] Start: 06-15-2023 Non-patient / Non-visit Dr. Lonny Bonilla Work Phone: [facility] Start: 06-15-2023 End: 06-16-2023 Evaluation and management of inpatient Dr. Renato Bonilla Work Phone: [facility]-Progressive Care Unit Work Phone: Start: 06-15-2023 End: 06-16-[address] 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 Lonny Bonilla Work Phone: [facility] Start: 06-07-2023 End: 06-07-[address] Renato Bonilla Work Phone: [facility] Work Phone: Start: 06-07-2023 End: 06-07-[address] Renato Bonilla Work Phone: [facility]-Cat Scan, [facility] Work Phone: Start: 06-05-2023 End: 06-05-[address] Renato Bonilla Work Phone: [facility]-Laboratory Work Phone: Start: 06-05-2023 Non-patient / Non-visit Dr. Lonny Bonilla Work Phone: [facility] Start: 06-05-2023 End: 06-05-2023 Admission to same day surgery center Dr. Renato Bonilla Work Phone: [facility]-Endoscopy Work Phone: Start: 06-05-2023 End: 06-05-[address] Renato Bonilla Work Phone: [facility] Work Phone: Start: 05-29-2023 End: 05-29-[address] Renato Bonilla Work Phone: [facility] Work Phone: Start: 05-29-2023 End: 05-29-[address] Renato Bonilla Work Phone: [facility] Work Phone: Start: 05-17-2023 End: 05-17-[address] Renato Bonilla Work Phone: [facility] Work Phone: Start: 05-17-2023 End: 05-17-[address] Renato Bonilla Work Phone: [facility] Vascular Surgery Work Phone: Start: 05-17-2023 End: 05-17-[address] Renato Bonilla Work Phone: [facility] Work Phone: Start: 05-03-2023 End: 05-03-2023 ambulatory [facility] Work Phone: Start: 05-03-2023 End: 05-03-2023 Patient encounter procedure [facility]-Laboratory, Phy Office 3rd Flr Start: 01-17-2023 End: 01-17-2023 Patient encounter procedure [facility]-Laboratory, Phy Office 3rd Flr Start: 11-02-2022 End: 11-02-2022 ambulatory [facility] Work Phone: Start: 11-02-2022 End: 11-02-2022 Patient encounter procedure [facility]-Outpatient Breast Imaging Start: 09-22-2022 End: 09-22-2022 ambulatory [facility] Work Phone: Start: 09-22-2022 End: 09-22-2022 Patient encounter procedure [facility]-Laboratory, Phy Office 3rd Flr Start: 04-25-[address] Santos Bonilla [facility] ty:[id number] Start: 04-25-2022 End: 04-25-2022 Emergency department patient visit Yimi Stokes [facility] Start: 10-14-2021 End: 10-14-[address] Renato Bonilla Work Phone: [facility]-Laboratory, Phy Office 3rd Flr Start: 10-08-2021 Non-patient / Non-visit Dr. Lonny Bonilla Work Phone: [facility] Start: 10-07-2021 End: 10-07-[address] Renato Bonilla Work Phone: [facility]-Pulmonary Services/Neurology Start: 09-27-2021 End: 09-27-2021 Patient encounter procedure [facility]-Cat Scan, [facility] Start: 08-27-2021 End: 08-27-2021 Emergency department patient visit Geneva Mendoza [facility] Start: 08-11-2021 End: 08-11-2021 Patient encounter procedure [facility]-Laboratory, Phy Office 3rd Flr Start: 06-30-2021 Patient encounter procedure [facility]-Laboratory, Phy Office 3rd Flr Start: 06-19-2021 End: 06-19-2021 Emergency department patient visit Rajni Lopez [facility] 02 Procedures Date Procedure Procedure Detail Performing Clinician Start: 03-01-[address] Renato hollis MD Work Phone: Start: 03-01-2025 Serum inorganic phosphate measurement Dr. Renato Bonilla MD Work Phone: Start: 02-28-[address] Renato Bonilla MD Work Phone: Start: 02-28-2025 Urnls dip stick/tablet reagent auto microscopy Dr. Renato Bonilla MD Work Phone: Start: 02-28-[address] Renato hollis MD Work Phone: Start: 02-24-2025 Measurement of occult blood in stool specimen using immunoassay Dr. Renato Bonilla MD Work Phone: Start: 02-19-2025 SARS-CoV-2, Influenza & RSV (PCR) Dr. Lonny Bonilla MD Work Phone: Start: 11-29-2024 MRI of abdomen with contrast Dr. Renato hidalgo MD Work Phone: Start: 11-11-[address] Renato Bonilla MD Work Phone: Start: 10-31-2024 Complete ultrasound of kidneys and bladder Dr. Renato Bonilla MD Work Phone: Start: 10-26-2024 Vitamin D, 25-hydroxy measurement Dr. Lonny Bonilla MD Work Phone: Comment on above: Vitamin D StatusDeficiency: <20 ng/mL (5 0nmol/L)Insufficiency: 20-30 ng/mL (50-75 nmol/L)Sufficiency: 30-100 ng/mL (75-250 nmol/L)Toxicity: >100 ng/mL (>250 nmol/L) Start: 10-18-2024 Echo tthrc r-t 2d w/wom-mode compl spec&colr d Easton García MD Work Phone: Start: 10-18-2024 Basic metabolic panel calcium total Easton García MD Work Phone: Start: 10-17-2024 EXTRA TUBES Easton García MD Work Phone: Start: 10-17-2024 SST TOP Easton García MD Work Phone: Start: 10-17-2024 Assay of troponin quantitative Easton García MD Work Phone: Start: 10-17-2024 EXTRA URINE HOPSON TUBE Jesus La MD Work Phone: Start: 10-17-2024 Urinalysis complete W Reflex Culture panel - Urine Jesus La MD Work Phone: Start: 10-17-2024 Urnls dip stick/tablet rgnt auto w/o microscopy Jesus La MD Work Phone: Start: 10-17-2024 Ct angio abd&plvis cntrst mtrl w/wo cntrst img Jesus La MD Work Phone: Start: 10-17-2024 Radiologic exam chest single view Jesus La MD Work Phone: Start: 10-17-2024 Comprehensive metabolic panel Jesus bain MD Work Phone: Start: 10-17-2024 Ecg routine ecg w/least 12 lds trcg only w/o i&r Jesus La MD Work Phone: Start: 10-10-2024 Ct angiography chest w/contrast/noncontrast Madeline Razo [employer] Work Phone: Start: 03-28-2024 Ecg routine ecg w/least 12 lds w/i&r Judi Ledezma MD Work Phone: Start: 03-07-2024 Ct angiography chest w/contrast/noncontrast Christelle VASQUEZC Work Phone: Start: 03-07-2024 Creatinine blood Lynn Richardson MD Work Phone: Start: 09-14-2023 Ct angio abd&plvis cntrst mtrl w/wo cntrst img Mariam Sharp MD Work Phone: Start: 09-14-2023 Creatinine blood Lynn Richardson MD Work Phone: Start: 07-26-2023 Plain chest X-ray Dr. Renato Bonilla Work Phone: Start: 07-26-2023 CT angiography of chest with contrast Dr. Renato Bonilla Work Phone: Start: 06-08-2023 Ct angio abd&plvis cntrst mtrl w/wo cntbonit img Lynn Richardson MD Work Phone: Start: 06-08-2023 Creatinine blood Lynn Richardson MD Work Phone: Start: 06-07-2023 CT angiography of coronary arteries Dr. Renato Bonilla Work Phone: Start: 06-05-[address] Renato Bonilla Work Phone: Start: 11-01-2022 Screening mammography Start: 09-27-2021 CT of chest Plan of Treatment Date Care Activity Detail Author Start: 2037 RSV Vaccine (1 - 1-d ose 75+ series) RSV Vaccine (1 - 1-dose 75+ series) [facility] Start: 02-16-2034 DTaP/Tdap/Td Vaccine s (2 - Td or Tdap) DTaP/Tdap/Td Vaccines (2 - Td or Tdap) [facility] Start: 10-09-2025 End: 10-09-2025 Patient encounter procedure [facility] Start: 03-03-2025 Influenza vaccination INFLUENZ A VACCINE (Season Ended) [facility] Start: 03-01-2025 Patient discharge [facility] Start: 02-28-2025 Administration of bl ood product [facility] Start: 02-28-2025 [facility] Start: 02-28-2025 End: 02-28-2025 [facility] Start: 02-28-2025 Application of intermittent pneumatic compression device [facility] Start: 02-28-2025 Following clinical pathway protocol [facility] Start: 02-28-2025 Assessment of risk o f venous thromboembolism [facility] Start: 02-28-2025 Catheterization of vein [facility] Start: 02-28-2025 Documentation procedure [facility] Start: 02-28-2025 Incentive spirometry [facility] Start: 02-28-2025 Insertion of cathete r into peripheral vein [facility] Start: 02-28-2025 Oxygen therapy [facility] Start: 02-28-2025 Providing care accor ding to standard [facility] Start: 02-28-2025 Referral to gastroenterology service [facility] Start: 02-28-2025 Verification routine [facility] Start: 02-28-2025 Admission procedure [facility] Start: 02-28-2025 Hospital admission, emergency, from emergency room, medical nature [facility] Start: 02-28-2025 Administration of bl ood product [facility] Start: 02-28-2025 Leukocyte reduced re d blood cells [facility] Start: 02-28-2025 [facility] Start: 10-03-2024 End: 10-03-2024 Patient encounter procedure [facility] Start: 03-28-2024 End: 03-28-2024 Patient encounter procedure 03/28/2024 2:20 PM EDT Office Visit [facility] [address] [place], [place] [id number] Judi Ledezma MD [address] [address] Ref; [facility] for Syncope & Collapse/ SVT EKG/eo [facility] Comment on above: Ref; [facility] for Syncope & Collapse/ SVT EKG/eo Start: 03-07-2024 End: 03-07-[address] ANGIO CHEST (NONCORONARY) Imaging Routine Penetrating ulcer of aorta Expected: 03/07/2024, Expires: 03/07/2025 [facility] Comment on above: Expected: 03/07/2024 , Expires: 03/07/2025 Start: 03-07-2024 End: 03-07-2024 Patient encounter procedure [facility] Start: 03-03-2024 Covid-19 Vaccine ( season) Covid-19 Vaccine ( season) [facility] Start: 03-03-2024 Covid-19 Vaccine () Covid-19 Vaccine () [facility] Start: 03-03-2024 COVID-19 VACCINE () COVID-19 VACCINE () [facility] Start: 03-03-2024 COVID-19 VACCINE () COVID-19 VACCINE () [facility] Start: 03-03-2024 Influenza vaccination Influenza Vacc ine (#1) [facility] Start: 01-18-2024 End: 01-18-2024 Patient encounter procedure 01/18/2024 3:00 PM EDT Office Visit [facility] [address] [place] [id number] Ligia Pena MD, MBBS [address] [place] [address] [facility] Start: 09-14-2023 End: 09-13-[address] ANGIO CHEST (NONCORONARY) Imaging Routine Penetrating atherosclerotic ulcer of aorta Expected: 09/14/2023, Expires: 09/13/2024 [facility] Comment on above: Expected: 09/14/2023 , Expires: 09/13/2024 Start: 09-07-2023 End: 06-08-2024 CT Chest and Abdomen and Pelvis WO and W contrast IV CT ANEURYSM STUDY WITH AND WITHOUT CONTRAST CHEST/ABDOMEN/PELVIS Imaging Routine Penetrating ulcer of aorta Expected: 09/07/2023 (Approximate), Expires: 06/08/2024 [facility] Work Phone: Comment on above: Expected: 09/07/2023 (Approximate), Expires: 06/08/2024 Start: 07-27-2023 Patient discharge [facility] Start: 07-27-2023 Following clinical pathway protocol [facility] Start: 07-27-2023 Assessment of risk o f venous thromboembolism [facility] Start: 07-27-2023 Cardiac monitoring [facility] Start: 07-27-2023 Fall prevention [facility] Start: 07-27-2023 Inhalation therapy procedure [facility] Start: 07-27-2023 Insertion of cathete r into peripheral vein [facility] Start: 07-27-2023 Introduction of urin sebas catheter [facility] Start: 07-27-2023 Measuring intake and output [facility] Start: 07-27-2023 Oxygen therapy [facility] Start: 07-27-2023 Providing care accor ding to standard [facility] Start: 07-27-2023 Provision of activit y privileges [facility] Start: 07-27-2023 Referral to service [facility] Start: 07-27-2023 End: 07-27-2023 [facility] Start: 07-26-2023 Admission procedure [facility] Start: 06-16-2023 Patient discharge [facility] Start: 06-15-2023 Patient referral [facility] Work Phone: Start: 06-15-2023 Care planning and pr oblem solving actions [facility] Start: 06-15-2023 Following clinical pathway protocol [facility] Start: 06-15-2023 Cardiac monitoring [facility] Start: 06-15-2023 Cardiac rehabilitati on - phase 1 [facility] Start: 06-15-2023 Cardiac rehabilitati on - phase 2 [facility] Start: 06-15-2023 Oxygen therapy [facility] Start: 06-15-2023 Patient discharge [facility] Start: 06-15-2023 Systemic arterial pressure monitoring [facility] Start: 06-15-2023 End: 06-15-2023 Taking patient vital signs [facility] Start: 06-15-2023 Vascular disease ris k assessment [facility] Start: 06-15-2023 Vital signs measurements [facility] Start: 06-15-2023 End: 06-15-2023 [facility] Start: 06-15-2023 End: 06-15-2023 Notification of physician [facility] Start: 06-15-2023 Patient education [facility] Start: 06-15-2023 Provision of activit y privileges [facility] Start: 06-15-2023 Pulse taking [facility] Start: 06-15-2023 Wound care [facility] Start: 06-15-2023 Admission procedure [facility] Start: 06-15-2023 Assessment of risk o f venous thromboembolism [facility] Start: 06-15-2023 Insertion of cathete r into peripheral vein [facility] Start: 06-15-2023 Measuring intake and output [facility] Start: 06-15-2023 Providing care accor ding to standard [facility] Start: 06-07-2023 Following clinical pathway protocol [facility] Start: 06-07-2023 Oxygen therapy [facility] Start: 06-07-2023 [facility] Start: 06-05-2023 Colonoscopy w/biopsy single/multiple COLONOSCOPY AND BIOPSY [facility] Start: 06-05-2023 Egd transoral biopsy single/multiple EGD BIOPSY SINGLE/MULTIPLE [facility] Start: 06-05-2023 Patient discharge [facility] Start: 05-17-2023 Patient referral [facility] Work Phone: Start: 03-03-2023 Covid-19 Vaccine ( season) Covid-19 Vaccine ( season) [facility] Start: 03-03-2023 COVID-19 VACCINE ( season) COVID-19 VACCINE () [facility] Start: 2022 RSV Vaccine (1 - 1-d ose 60+ series) RSV Vaccine (1 - 1-dose 60+ series) [facility] Start: 12-13-2012 Screening for malign ant neoplasm of breast Mammogram Screening [facility] Start: 2012 Pneumococcal vaccination [facility] Start: 2012 Screening for malign ant neoplasm of lung LUNG CANCER SCREENING [facility] Start: 2012 Shingrix Vaccine (1 of 2) Maruqis grix Vaccine (1 of 2) [facility] Start: 2012 Zoster vaccine hzv l amanda for subcutaneous use ZOSTER (SHINGLES) VACCINE (1 of 2) [facility] Start: 2012 Zoster Vaccines (1 of 2) Zoster Vacc whitney (1 of 2) [facility] Start: 06-29-2009 Screening for malign ant neoplasm of cervix Cervical Cancer Screening [facility] Start: 10-01-2007 Diabetes Screening Diabetes Screenin g [facility] Start: 10-01-2007 Lipid panel Lipid Screening [facility] Start: 10-01-2007 Screening for malign ant neoplasm of colon [facility] Start: 2002 Lipid panel LIPID SCREENING [place] Start: 2002 Screening for malign ant neoplasm of breast [facility] Start: 10-01-1983 Screening for malign ant neoplasm of cervix CERVICAL CANCER SCREENING DISCUSSION [facility] Start: 1981 Third diphtheria, te tanus and acellular pertussis (DTaP) vaccination TDAP (ADULT) [facility] Start: 1981 Urine microalbumin profile DTaP,Tdap,Td Vaccine (1 - Tdap) [facility] Start: 1980 Annual PCP Team [employer] florin Disease Visit Annual PCP Team Chronic Disease Visit [facility] Start: 1980 Anxiety Screening Anxiety Screening [facility] Start: 1980 BP Controlled (<130/80) BP Controlle d (<130/80) [facility] Start: 1980 Depression Screening Depression Scre ening [facility] Start: 1980 Hepatitis B surface antibody level LDL Cholesterol [facility] Start: 1980 Hepatitis C screening Hepatitis C Sc fred [facility] Start: 1980 HIV screening HIV Screening [facility] Start: 1977 HIV screening HIV SCREENING DISCUSSI ON [facility] Start: 10-01-1963 MMR Vaccines (1 of 1 - Standard series) MMR Vaccines (1 of 1 - Standard series) [facility] Start: 1962 Hepatitis C screening HEPATITI S C VIRUS SCREENING [facility] Start: 1962 HIV screening HIV Screening [facility] Start: 1962 Lipid panel Lipid Panel [facility] Start: 1962 Screening for malign ant neoplasm of colon [facility] Start: 1962 Tetanus vaccination TETANUS [facility] Start: 1962 Yearly Adult Physical Yearly Adult P hysical [facility] Bilirubin measuremen t, urine [facility] CTA Heart and Zamora ry arteries W contrast IV [facility] ECG 12 lead ECG 12 lead ECG STAT 10/17/2024 10:52 AM EDT [facility] Service Area Work Phone: Electrocardiogram, 12-lead PRN ACS symptoms Electrocardiogram, 12-lead PRN ACS symptoms ECG Routine As needed until discontinued starting 10/17/2024 [facility] Area Work Phone: Comment on above: As needed until disc ontinued starting 10/17/2024 Hemoglobin [Presence ] in Urine [facility] Measurement of keton es in urine using dipstick [facility] Microscopic urinalysis [facility] Patient referral [facility] Work Phone: pH of Urine [facility] Specific gravity of Urine [facility] Tilt table test [facility] Urine blood test [facility] Urine dipstick for glucose [facility] Urine dipstick for leukocyte esterase [facility] Urine dipstick for nitrite [facility] Urine dipstick for protein [facility] Urine examination [facility] Urine microscopy: epithelial cells [facility] Urine Microscopy: wh ite cells [facility] Urobilinogen [Presen ce] in Urine [facility] Immunizations Immunization Date Immunization Notes Care Provider Thuan nguyen 05-18-2023 influenza virus vaccine, unspecified formulation Lynn Richardson MD Work Phone: [facility] Payers Date Payer Category Payer Worker's Compensation [id number] 2024 Managed Care (Private) [employer] [facility] [id number] 2024 Managed Care (unspecified) [facility] [facility] [id number] 2024 Private Health Insurance [id number] 2024 Self-pay [id number] 2023 Private Health Insurance [employer] C IGNA GENERIC [id number] 2023-Present [phone] [address] [place] [address] [id number] 2019 Unknown 2014 Unknown [id number] 1962 Unknown [id number] 2.16.840.1.687442.3.579.2 .1069 1962 Unknown [id number] 2.16.840.1.228507.3.579.2 .1069 1962 Unknown [id number] 2.16.840.1.499719.3.579.2 .1069 1962 Unknown [id number] 2.16.840.1.837644.3.579.2 .1069 1962 Unknown [id number] 2.16.840.1.297583.3.579.2 .594 1962 Unknown [id number] 2.16.840.1.397107.3.579.2 .594 1962 Unknown [id number] 2.16.840.1.493920.3.579.2 .594 1962 Unknown [id number] 2.16.840.1.103681.3.579.2 .594 1962 Unknown [id number] 2.840.1.283027.3.579.2 .1243 1962 Unknown [id number] 2.16840.1.855838.3.579.2 .902 1962 Unknown [id number] 2.16840.1.436599.3.579.2 .651 Private Health Insurance [id number] Unknown Unknown [id number] 2.840.1.200063.3.579.2 .462 Unknown [id number] 2.16840.1.578121.3.579.2 .462 Unknown [id number] 2.16840.1.730243.3.579.2 .462 Unknown [id number] 2.16840.1.690404.3.579.2 .462 Unknown [id number] 2.16840.1.550075.3.579.2 .462 Unknown [id number] 2.840.1.114728.3.579.2 .462 Unknown [id number] 2.16.840.1.564995.3.579.2 .462 Unknown [id number] 2.16.840.1.070457.3.579.2 .462 Unknown [id number] 2.16.840.1.943162.3.579.2 .462 Unknown [id number] 2.16.840.1.222051.3.579.2 .462 Unknown [id number] 2.16.840.1.046952.3.579.2 .462 Unknown [id number] 2.16.840.1.145617.3.579.2 .462 Unknown [id number] 2.16.840.1.197300.3.579.2 .462 Unknown [id number] 2.16.840.1.730310.3.579.2 .462 Unknown [id number] 2.16.840.1.385891.3.579.2 .462 Unknown [id number] 2.16.840.1.735659.3.579.2 .462 Unknown [id number] 2.16.840.1.819995.3.579.2 .462 Unknown [id number] 2.16.840.1.997657.3.579.2 .462 Unknown [id number] 2.16.840.1.330750.3.579.2 .462 Unknown [id number] 2.16.840.1.682275.3.579.2 .462 Unknown [id number] 2.16.840.1.377551.3.579.2 .462 Social History Date Type Detail Facility [facility] Start: 02-15-2022 End: 06-15-2023 Tobacco smoking consumption unknown [facility] Start: 1960 Sex Assigned At Female [facility] Start: 06-08-2023 End: 02-28-2025 Tobacco smoking status NHIS Ex-smoker [facility] Start: 10-05-1981 End: 10-05-2021 History of tobacco use Current smoker [facility] Start: 10-05-1981 End: 10-05-2021 History of tobacco use Cigarette Smoker [facility] Start: 06-08-2023 End: 10-17-2024 Cigarettes smoked current (pack per day) - Reported 1 [facility] Start: 06-08-2023 End: 09-14-2023 Tobacco use and exposure User of smokeless tobacco [facility] Start: 06-08-2023 End: 10-10-2024 Alcohol intake Ex-drinker (finding) [facility] Start: 06-08-2023 End: 10-17-2024 Tobacco use panel [facility] Start: 06-08-2023 Tobacco Comment Using nicotine pouches 2mg [facility] Start: 1960 Sex Assigned At Not on file [facility] Start: 02-27-2024 Tobacco smoking status NHIS Smokes tobacco daily [facility] Start: 02-27-2024 End: 10-17-2024 Tobacco use and exposure Smokeless tobacco non-user [facility] Start: 02-27-2024 End: 03-28-2024 Alcoholic beverage intake Current non-drinker of alcohol (finding) [facility] National Score (1-100), lower number is lower risk Not on file [facility] Start: 02-27-2024 Alcohol Comment quit 1990 [facility] Start: 03-18-2024 Gender identity Identifies as female gender (finding) [facility] Start: 05-22-2023 End: 11-06-2024 Sex Female (finding) [facility] Start: 10-04-2024 Sexual orientation Heterosexual (fin emmanuelle) [facility] Start: 10-17-2024 Tobacco smoking status NHIS Never smoked tobacco [facility] Start: 10-17-2024 Alcoholic beverage intake Lifetime non-drinker (finding) [facility] Work Phone: How often do you nee d to have someone help you when you read instructions, pamphlets, or other written material from your doctor or pharmacy [SILS] Never [facility] Work Phone: Has the electric, gas, oil, or water Xamplified threatened to shut off services in your home in past 12Mo No [facility] Work Phone: Are you now , , , , never or living with a partner? [facility] Work Phone: Do you feel stress - tense, restless, nervous, or anxious, or unable to sleep at night because your mind is troubled all the time - these days [OSQ] Not at all [facility] Work Phone: (I/We) worried whether (my/our) food would run out before (I/we) got money to buy more. Never true [facility] Work Phone: Start: 10-07-2024 End: 10-17-2024 Exposure to SARS-CoV-2 (event) Not sure [facility] Work Phone: NEGATED: Highlighted row [facility] NEGATED: Highlighted rowStart: NINF History of tobacco use Passive smoker [facility] Work Phone: Medical Equipment Procedure Code Equipment Code Equipment Origin al Text Equipment Identifier Dates Drug-eluting coronary artery stent, [id number] lymer-coated [id number] FDA Start: 06-15-2023 Goals Date Patient Goal Desired Activity /State Personal health goal Functional Status Date Assessment Result Facility 03-01-2025 Functional status Up ad vida [facility] Work Phone: 10-17-2024 Total score [AUDIT-C] 0 10/18/19 25 6:17 PM Yoly Rosas, TJ [facility] Work Phone: 10-17-2024 Humiliation, Afraid, Rape, and Kick questionnaire [HARK] [facility] Work Phone: 10-17-2024 Patient Health Questionnaire 2 item (PHQ-2) [Reported] [facility] Work Phone: 10-17-2024 [place] - suicide s everity rating scale screener - recent [C-SSRS] [facility] Work Phone: 07-27-2023 Functional status Ambulates [facility] Work Phone: 06-16-2023 Functional status Ambulates;Up ad vida [facility] Work Phone: [facility] Work Phone: Mental Status Date Assessment Result Facility 03-01-2025 Cognitive function Voice/Name [facility] Work Phone: 02-28-2025 Cognitive function Level Of Cons ciousness Awake;Alert;Appropriate;Follow s Commands [facility] Work Phone: 07-27-2023 Cognitive function Voice/Name [facility] Work Phone: 06-16-2023 Cognitive function Voice/Name [facility] Work Phone: 06-07-2023 Cognitive function Awake;Alert;Appropriat e [facility] Work Phone: 06-05-2023 Cognitive function Level Of Consciousness Sedated [facility] Work Phone: 06-05-2023 Cognitive function Voice/Name [facility] Work Phone: Clinical Notes 06-05-2023 to 03-01-2025 Note Date & Type Note Facility 03-01-2025 Discharge summary Note Date/Time March 01, 2025 10:20am [facility] Medical Records Department [address] [place] [address] Instructions for Home/Discharge Instructions 03/01/2532 MR#: [id number] Acct: [id number] Name: AMIE RYAN Rep #:[id number] : 1960 64 From: Ruben hicks DO PCP: Dr. Renato Bonilla MD Status:ADM I N Discharge Instructions DC O2, CPAP, BIPAP needs Home O2 Discharge instructions: No Dressing / Incision Discharge Activity: No Restrictions Follow Up Care Test Results: Test results from this visit will be discussed in further detail at your follow-up appointment, if applicable. Discharge Plan Admission Admit Date/Time: 02/28/25 11:27 Primary Reason for Your Visit: fatigue and dark stools Attending Provider: Ruben Whitley Primary Care Provider: Renato Bonilla [employer] Providers: Erik Hylton; José Luis Leach; Melinda Cumimngs; Niecy Radford; Yuki Tinajero; Tracy Chow Instructions Additional Instructions / Restrictions: Please start taking the following medications: ? Pantoprazole 40 mg twice daily ? Sucralfate 1 g 3 times daily before meals for 1 month Please hold the following medications: ? Aspirin: Hold on taking this for 1 month to allow your stomach ulcer to heal ? Amlodipine and losartan: Your blood pressures were in low normal range here. Hold on taking these blood pressure medications until follow-up with your primary care doctor. Please call the GI office soon to schedule a follow-up appointment. Discharge Orders/Prescriptions Prescriptions: Continued magnesium oxide 400 mg magnesium tablet 400 mg PO DAILY cyclobenzaprine 10 mg tablet 10 mg PO DAILY PRN (Reason: muscle spasm) atorvastatin 40 mg tablet 40 mg PO QHS Qty: 30 2RF calcium carbonate [Calcium 600] 600 mg calcium (1,500 mg) tablet 600 mg PO DAILY ferrous sulfate [FeroSul] 325 mg (65 mg iron) tablet 325 mg PO Q OTHER DAY cholecalciferol (vitamin D3) [Vitamin D3] 25 mcg (1,000 unit) tablet 25 mcg PO DAILY Gemtesa 75 mg tablet 75 mg PO DAILY pantoprazole 40 mg tablet,delayed release (DR/EC) 40 mg PO BID 90 Days Qty: 180 0RF Changed sucralfate 1 gram tablet 1 g PO TID 30 Days Qty: 90 0RF Held aspirin [Adult Aspirin Regimen] 81 mg tablet,delayed release (DR/EC) 81 mg PO DAILY Hold Instructions: Resume on 04/02/25. Please hold for 1 month to allow the your stomach ulcer to heal. losartan 50 mg tablet 50 mg PO DAILY Qty: 90 3RF Hold Instructions: Resume on 03/17/25. amlodipine 5 mg tablet 5 mg PO DAILY Qty: 90 3RF Hold Instructions: Resume on 03/17/25. Referrals / Follow Up: José Luis Leach DO [Med Staff - Active Staff] - Renato Bonilla Chi, MD [Primary Care Provider] - Disposition Disposition (needs filled in before D/C Order can be placed): Home, Self Care 03/01/25 1020<Electronically signed by Ruben Whitley DO>Ruben Whitley DO CC: FOOD DEMONSTRATOR-Shar Cummings; FOOD DEMONSTRATOR-Shar Radford; Dr. Tracy Chow DO; Dr. Erik Hylton MD; Dr. Renato Bonilla MD; KISHA Lance; José Luis Leach DO ~ Signed [facility] Work Phone: [phone]) 238-565708-30-2025 Discharge summary [facility] Medical Records Department [address] [place] [address] Discharge Summary 03/01/25 0932 MR#: [id number] Acct: [id number] Name: AMIE RYAN Rep #:[id number] : 1960 64 From: Ruben hicks DO PCP: Dr. Renato Bonilla MD Status:ADM I N Location: [place] [address] Providers Date of Admission: 02/28/25 Date of Discharge: 03/01/25 Primary Care Physician: Dr. Renato Bonilla MD Consultations 02/28/25 12:08 Consult: Gastroenterology Routine Consulting Provider: [facility] Reason for Consult: GI bleed EMERGENT Consult: No MD Notified: Yes Date Notified: 02/28/25 Time Notified: 11:30 Method of Notification: ED Physician Initiated Reason For Visit: ACUTE ANEMIA 2/2 GIB Diagnosis Discharge Diagnosis (1) GI bleed: Status: Acute Code(s): K92.2 - Gastrointestinal hemorrhage, unspecified (2) Acute anemia: Status: Acute Code(s): D64.9 - Anemia, unspecified Medications at Discharge Home Medications magnesium oxide 400 mg PO DAILY 11/12/21 cyclobenzaprine 10 mg tablet 10 mg PO DAILY PRN muscle spasm 05/11/23 atorvastatin 40 mg tablet 40 mg PO QHS #30 tabs 05/17/23 cholecalciferol (vitamin D3) 25 mcg (1,000 unit) tablet (Vitamin D3) 25 mcg PO DAILY 05/31/23 aspirin 81 mg tablet,delayed release (Adult Aspirin Regimen) 81 mg PO DAILY 06/12/23 Held on 03/01/25. Instructions: Resume on 04/02/25. Please hold for 1 month to allow the your stomach ulcer to heal. calcium carbonate (Calcium 600) 600 mg PO DAILY 02/22/24 ferrous sulfate 325 mg (65 mg iron) tablet (FeroSul) 325 mg PO Q OTHER DAY 02/22/24 losartan 50 mg tablet 50 mg PO DAILY #90 tabs 06/28/24 Held on 03/01/25. Instructions: Resume on 03/17/25. amlodipine 5 mg tablet 5 mg PO DAILY #90 tabs 02/19/25 Held on 03/01/25. Instructions: Resume on 03/17/25. vibegron 75 mg tablet (Gemtesa) 75 mg PO DAILY 02/28/25 pantoprazole 40 mg tablet,delayed release 40 mg PO BID 90 days #180 tabs 03/01/25 sucralfate 1 gram tablet 1 g PO TID 30 days #90 tabs 03/01/25 Hospital Course Operations None Procedures EGD Summary of Care Provided Minutes Spent on Discharge: 35 Hospital Course: Patient is a 64-year-old female who presented to [facility] ED on 02/28/2025 with fatigue and dark stools. Short hospital course as noted below. Patient discharged home in stable condition on 03/01. 1. Acute blood loss anemia secondary to upper GI bleed from peptic ulcer disease ? GI followed. Hemoglobin 6.7 on admit, down from baseline of 11-12. Hemoglobin notably was 11.5 only 4 days prior. EGD on 02/28 showed a gastric ulcer with a pumping vessel; 3 clips placed, plasma coagulation used and was also injected with epinephrine. Given 2 units of blood and hemoglobin stable at9.0 on 03/01. Initiated on diet on evening of 02/28 and tolerated without issue. Per GI, will treat with p.o. PPI twice daily for at least 3 months and sucralfate 3 times daily with meals for 1 month.Will hold home baby aspirin for 1 month. Continue iron supplement. Outpatient follow-up with GI as needed. 2. History of CAD with stenting, hypertension, hyperlipidemia, history of SVT ? Had stenting x 1 done in June 2023. Blood pressure low normal during hospitalization. Last echo notably showed EF 55 to 60%. Will hold baby aspirinfor 1 month on discharge due to severe GI bleed as above. Will hold home amlodipine and losartan on discharge for now; recommend close outpatient follow- up with PCP and can resume when able. Continue home statin. Chronic medical conditions: ? Overactive bladder: Continue home medication. ? Osteoporosis: Continue home vitamin D and calcium supplementation. ? History of vasovagal syncope: Noted on previous tilt table test. Outpatient management. ? History of thoracic pseudoaneurysm of the aorta: Outpatient follow-up with vascular/thoracic surgery. ? History of tobacco abuse: Encouraged continued cessation. Total clinical time spent by myself addressing the patient's medical issues, reviewing all the data, and collaborating with patient's care team: 35 minutes. Physical Exam Const alert, oriented x3, no apparent distress, average body habitus, healthy appearing and well nourished Constitutional Narrative: Pleasant middle-age female, good energy level, sitting back comfortably in bed, conversing normally, in no acute distress. General Appearance: cooperative, comfortable, well kempt and well developed HEENT normocephalic, head/scalp atraumatic, hearing grossly normal bilaterally, nasal mucous membranes and turbinates normal and moist oral mucous membranes Eyes PERRL, EOMs intact bilaterally and conjunctivae normal Neck full ROM Chest inspection of chest normal Resp normal respiratory effort, normal air movement, no use of accessory muscles and clear to auscultation bilaterally Cardio regular rate, regular rhythm, no murmurs and peripheral pulses 2+ throughout GI normal to inspection, nondistended, normoactive bowel sounds, soft to palpation,non-tender and non-distended Back/Spine normal ROM Extremity normal to inspection, full ROM and no pedal edema Skin no rashes or lesions noted Psych mental status grossly normal Weight / BMI Weight Weight: 58.1 kg Body Mass Index (BMI) 22.6 ABG / Lab / Microbiology Data 03/01/25 07:07 03/01/25 07:07 Laboratory: Laboratory Results - last 24 hr 02/28/25 10:30: Blood Type O POSITIVE, Antibody Screen NEGATIVE, Crossmatch See Detail 02/28/25 10:30: Crossmatch See Detail 02/28/25 11:10: Urine Color Straw, Urine Clarity Clear, Urine pH 6.0, Ur Specific [place] 1.005, Urine Protein Negative, Urine Glucose (UA) Normal, UrineKetones Negative, Urine Occult Blood Negative,Urine Nitrite Negative, Urine Bilirubin Negative, Urine Urobilinogen Normal, Ur Leukocyte Esterase Negative, Urine RBC 0-5 SEEN, Urine WBC 0 SEEN, Ur Squamous Epith Cells 0-5 SEEN, Urine Bacteria 0 SEEN, Urine Mucus 0 SEEN 02/28/25 13:12: Troponin T High Sens 11 02/28/25 15:37: Hgb 7.0 L, Hct 21.1 L 02/28/25 20:50: Hgb 8.9 L, Hct 25.5 L 03/01/25 00:40: Hgb 8.2 L, Hct 23.5 L 03/01/25 07:07: WBC 5.8, RBC 2.82 L, Hgb 9.0 L, Hct 26.5 L, MCV 94.0, MCH 31.9, MCHC 34.0, RDW Std Deviation 50.8 H, RDW Coeff of Yulia 14.9 H, Plt Count 238, MPV8.5, Immature Gran % (Auto) 0.900, Neut% (Auto) 53.9, Lymph % (Auto) 27.0, Eaton% (Auto) 12.2 H, Eos % (Auto) 5.7 H, Baso % (Auto) 0.3, Absolute Neuts (auto) 3.1, Absolute Lymphs (auto) 1.57, Nucleated RBC % 0, Sodium 140, Potassium 4.2, Chloride 105, Carbon Dioxide 26.8, Anion Gap 8, BUN 18, Creatinine 0.87, Estim Creat Clear Calc 55.46, Est GFR (MDRD) Non-Af 75, BUN/Creatinine Ratio 20.7 H, Glucose 100 H, Calcium 8.7, Phosphorus 3.2, Magnesium 2.3 H, Total Bilirubin 0.31, AST 23, ALT 12, Alkaline Phosphatase 56, Total Protein 5.8 L, Albumin 3.7,Globulin 2.1 L, Albumin/Globulin Ratio 1.7 D/C Instructions DC O2, CPAP, BIPAP Needs Home O2 Discharge instructions: No Meaningful Use Info Meaningful Use Meaningful Use Diagnoses (Choose all that apply): None applicable Discharge Plan Admission Admit Date/Time: 02/28/25 11:27 Primary Reason for Your Visit: fatigue and dark stools Attending Provider: Ruben Whitley Primary Care Provider: Renato Bonilla Chi Consulting Providers: Erik Hylton; José Luis Leach; Melinda Cummings; Niecy Radford; Yuki Tinajero; Tracy Chow Instructions Additional Instructions / Restrictions: Please start taking the following medications: ? Pantoprazole 40 mg twice daily ? Sucralfate 1 g 3 times daily before meals for 1 month Please hold the following medications: ? Aspirin: Hold on taking this for 1 month to allow your stomach ulcer to heal ? Amlodipine and losartan: Your blood pressures were in low normal range here. Hold on taking theseblood pressure medications until follow-up with your primary care doctor. Please call the GI office soon to schedule a follow-up appointment. Discharge Orders/Prescriptions Prescriptions: Continued magnesium oxide 400 mg magnesium tablet 400 mg PO DAILY cyclobenzaprine 10 mg tablet 10 mg PO DAILY PRN (Reason: muscle spasm) atorvastatin 40 mg tablet 40 mg PO QHS Qty: 30 2RF calcium carbonate [Calcium 600] 600 mg calcium (1,500 mg) tablet 600 mg PO DAILY ferrous sulfate [FeroSul] 325 mg (65 mg iron) tablet 325 mg PO Q OTHER DAY cholecalciferol (vitamin D3) [Vitamin D3] 25 mcg (1,000 unit) tablet 25 mcg PO DAILY Gemtesa 75 mg tablet 75 mg PO DAILY pantoprazole 40 mg tablet,delayed release (DR/EC) 40 mg PO BID 90 Days Qty: 180 0RF Changed sucralfate 1 gram tablet 1 g PO TID 30 Days Qty: 90 0RF Held aspirin [Adult Aspirin Regimen] 81 mg tablet,delayed release (DR/EC) 81 mg PO DAILY Hold Instructions: Resume on 04/02/25. Please hold for 1 month to allow the your stomach ulcer to heal. losartan 50 mg tablet 50 mg PO DAILY Qty: 90 3RF Hold Instructions: Resume on 03/17/25. amlodipine 5 mg tablet 5 mg PO DAILY Qty: 90 3RF Hold Instructions: Resume on 03/17/25. Referrals / Follow Up: José Luis Leach DO [Med Staff - Active Staff] - Renato Bonilla Chi, MD [Primary Care Provider] - Disposition Disposition (needs filled in before D/C Order can be placed): Home, Self Care Charges/Coding Visit Charges Inpatient E&M: 33468 Disch Hosp >30min 03/01/25 1109 Cosigner Signature (if applicable): CC: Dr. Ruben Whitley DO; Dr. Renato Bonilla MD~ Signed ADDENDUM by Dr. Ruben Whitley DO on 03/01/25 at 1216 Addendum Notably patient was admitted under inpatient status but improved more quickly than anticipated and was able to be discharged home on hospital day 2. 03/01/25 1216 Cosigner Signature (if applicable): cc: Dr. Ruben Whitely DO; Dr. Renato Bonilla MD ~* Signed [facility]08-30-2025 Discharge summary Author Ruben Whitley [facility] Note Date/Time March 01, 2025 12 :16pm [facility] Medical Records Department [address] [place] [address] Discharge Summary 03/01/25 0932 MR#: [id number] Acct: [id number] Name: AMIE RYAN Rep #:[id number] : 1960 64 From: Ruben hicks DO PCP: Dr. Renato Bonilla MD Status:ADM I N Location: [place] [address] Providers Date of Admission: 02/28/25 Date of Discharge: 03/01/25 Primary Care Physician: Dr. Renato Bonilla MD Consultations 02/28/25 12:08 Consult: Gastroenterology Routine Consulting Provider: [facility] Reason for Consult: GI bleed EMERGENT Consult: No MD Notified: Yes Date Notified: 02/28/25 Time Notified: 11:30 Method of Notification: ED Physician Initiated Reason For Visit: ACUTE ANEMIA 2/2 GIB Diagnosis Discharge Diagnosis (1) GI bleed: Status: Acute Code(s): K92.2 - Gastrointestinal hemorrhage, unspecified (2) Acute anemia: Status: Acute Code(s): D64.9 - Anemia, unspecified Medications at Discharge Home Medications magnesium oxide 400 mg PO DAILY 11/12/21 cyclobenzaprine 10 mg tablet 10 mg PO DAILY PRN muscle spasm 05/11/23 atorvastatin 40 mg tablet 40 mg PO QHS #30 tabs 05/17/23 cholecalciferol (vitamin D3) 25 mcg (1,000 unit) tablet (Vitamin D3) 25 mcg PO DAILY 05/31/23 aspirin 81 mg tablet,delayed release (Adult Aspirin Regimen) 81 mg PO DAILY 06/12/23 Held on 03/01/25. Instructions: Resume on 04/02/25. Please hold for 1 month to allow the your stomach ulcer to heal. calcium carbonate (Calcium 600) 600 mg PO DAILY 02/22/24 ferrous sulfate 325 mg (65 mg iron) tablet (FeroSul) 325 mg PO Q OTHER DAY 02/22/24 losartan 50 mg tablet 50 mg PO DAILY #90 tabs 06/28/24 Held on 03/01/25. Instructions: Resume on 03/17/25. amlodipine 5 mg tablet 5 mg PO DAILY #90 tabs 02/19/25 Held on 03/01/25. Instructions: Resume on 03/17/25. vibegron 75 mg tablet (Gemtesa) 75 mg PO DAILY 02/28/25 pantoprazole 40 mg tablet,delayed release 40 mg PO BID 90 days #180 tabs 03/01/25 sucralfate 1 gram tablet 1 g PO TID 30 days #90 tabs 03/01/25 Hospital Course Operations None Procedures EGD Summary of Care Provided Minutes Spent on Discharge: 35 Hospital Course: Patient is a 64-year-old female who presented to [facility] ED on 02/28/2025 with fatigue and dark stools. Short hospital course as noted below. Patient discharged home in stable condition on 03/01. 1. Acute blood loss anemia secondary to upper GI bleed from peptic ulcer disease ? GI followed. Hemoglobin 6.7 on admit, down from baseline of 11-12. Hemoglobin notably was 11.5 only 4 days prior. EGD on 02/28 showed a gastric ulcer with a pumping vessel; 3 clips placed, plasma coagulation used and was also injected with epinephrine. Given 2 units of blood and hemoglobin stable at9.0 on 03/01. Initiated on diet on evening of 02/28 and tolerated without issue. Per GI, will treat with p.o. PPI twice daily for at least 3 months and sucralfate 3 times daily with meals for 1 month. Will hold home baby aspirin for 1 month. Continue iron supplement. Outpatient follow-up with GI as needed. 2. History of CAD with stenting, hypertension, hyperlipidemia, history of SVT ? Had stenting x 1 done in June 2023. Blood pressure low normal during hospitalization. Last echo notably showed EF 55 to 60%. Will hold baby aspirinfor 1 month on discharge due to severe GI bleed as above. Will hold home amlodipine and losartan on discharge for now; recommend close outpatient follow-up with PCP and can resume when able. Continue home statin. Chronic medical conditions: ? Overactive bladder: Continue home medication. ? Osteoporosis: Continue home vitamin D and calcium supplementation. ? History of vasovagal syncope: Noted on previous tilt table test. Outpatient management. ? History of thoracic pseudoaneurysm of the aorta: Outpatient follow-up with vascular/thoracic surgery. ? History of tobacco abuse: Encouraged continued cessation. Total clinical time spent by myself addressing the patient's medical issues, reviewing all the data, and collaborating with patient's care team: 35 minutes. Physical Exam Const alert, oriented x3, no apparent distress, average body habitus, healthy appearing and well nourished Constitutional Narrative: Pleasant middle-age female, good energy level, sitting back comfortably in bed, conversing normally, in no acute distress. General Appearance: cooperative, comfortable, well kempt and well developed HEENT normocephalic, head/scalp atraumatic, hearing grossly normal bilaterally, nasal mucous membranes and turbinates normal and moist oral mucous membranes Eyes PERRL, EOMs intact bilaterally and conjunctivae normal Neck full ROM Chest inspection of chest normal Resp normal respiratory effort, normal air movement, no use of accessory muscles and clear to auscultation bilaterally Cardio regular rate, regular rhythm, no murmurs and peripheral pulses 2+ throughout GI normal to inspection, nondistended, normoactive bowel sounds, soft to palpation,non-tender and non-distended Back/Spine normal ROM Extremity normal to inspection, full ROM and no pedal edema Skin no rashes or lesions noted Psych mental status grossly normal Weight / BMI Weight Weight: 58.1 kg Body Mass Index (BMI) 22.6 ABG / Lab / Microbiology Data 03/01/25 07:07 03/01/25 07:07 Laboratory: Laboratory Results - last 24 hr 02/28/25 10:30: Blood Type O POSITIVE, Antibody Screen NEGATIVE, Crossmatch See Detail 02/28/25 10:30: Crossmatch See Detail 02/28/25 11:10: Urine Color Straw, Urine Clarity Clear, Urine pH 6.0, Ur Specific [place] 1.005, Urine Protein Negative, Urine Glucose (UA) Normal, UrineKetones Negative, Urine Occult Blood Negative, Urine Nitrite Negative, Urine Bilirubin Negative, Urine Urobilinogen Normal, Ur Leukocyte Esterase Negative, Urine RBC 0-5 SEEN, Urine WBC 0 SEEN, Ur Squamous Epith Cells 0-5 SEEN, Urine Bacteria 0 SEEN, Urine Mucus 0 SEEN 02/28/25 13:12: Troponin T High Sens 11 02/28/25 15:37: Hgb 7.0 L, Hct 21.1 L 02/28/25 20:50: Hgb 8.9 L, Hct 25.5 L 03/01/25 00:40: Hgb 8.2 L, Hct 23.5 L 03/01/25 07:07: WBC 5.8, RBC 2.82 L, Hgb 9.0 L, Hct 26.5 L, MCV 94.0, MCH 31.9, MCHC 34.0, RDW Std Deviation 50.8 H, RDW Coeff of Yulia 14.9 H, Plt Count 238, MPV8.5, Immature Gran % (Auto) 0.900, Neut % (Auto) 53.9, Lymph % (Auto) 27.0, Eaton% (Auto) 12.2 H, Eos % (Auto) 5.7 H, Baso % (Auto) 0.3, Absolute Neuts (auto) 3.1, Absolute Lymphs (auto) 1.57, Nucleated RBC % 0, Sodium 140, Potassium 4.2, Chloride 105, Carbon Dioxide 26.8, Anion Gap 8, BUN 18, Creatinine 0.87, Estim Creat Clear Calc 55.46, Est GFR (MDRD) Non-Af 75, BUN/Creatinine Ratio 20.7 H, Glucose 100 H, Calcium 8.7, Phosphorus 3.2, Magnesium 2.3 H, Total Bilirubin 0.31, AST 23, ALT 12, Alkaline Phosphatase 56, Total Protein 5.8 L, Albumin 3.7,Globulin 2.1 L, Albumin/Globulin Ratio 1.7 D/C Instructions DC O2, CPAP, BIPAP Needs Home O2 Discharge instructions: No Meaningful Use Info Meaningful Use Meaningful Use Diagnoses (Choose all that apply): None applicable Discharge Plan Admission Admit Date/Time: 02/28/25 11:27 Primary Reason for Your Visit: fatigue and dark stools Attending Provider: Ruben Whitley Primary Care Provider: Renato Bonilla Chi Consulting Providers: Erik Hylton; José Luis Leach; Melinda Cummings; Niecy Radford; Yuki Tinajero; Tracy Chow Instructions Additional Instructions / Restrictions: Please start taking the following medications: ? Pantoprazole 40 mg twice daily ? Sucralfate 1 g 3 times daily before meals for 1 month Please hold the following medications: ? Aspirin: Hold on taking this for 1 month to allow your stomach ulcer to heal ? Amlodipine and losartan: Your blood pressures were in low normal range here. Hold on taking these blood pressure medications until follow-up with your primary care doctor. Please call the GI office soon to schedule a follow-up appointment. Discharge Orders/Prescriptions Prescriptions: Continued magnesium oxide 400 mg magnesium tablet 400 mg PO DAILY cyclobenzaprine 10 mg tablet 10 mg PO DAILY PRN (Reason: muscle spasm) atorvastatin 40 mg tablet 40 mg PO QHS Qty: 30 2RF calcium carbonate [Calcium 600] 600 mg calcium (1,500 mg) tablet 600 mg PO DAILY ferrous sulfate [FeroSul] 325 mg (65 mg iron) tablet 325 mg PO Q OTHER DAY cholecalciferol (vitamin D3) [Vitamin D3] 25 mcg (1,000 unit) tablet 25 mcg PO DAILY Gemtesa 75 mg tablet 75 mg PO DAILY pantoprazole 40 mg tablet,delayed release (DR/EC) 40 mg PO BID 90 Days Qty: 180 0RF Changed sucralfate 1 gram tablet 1 g PO TID 30 Days Qty: 90 0RF Held aspirin [Adult Aspirin Regimen] 81 mg tablet,delayed release (DR/EC) 81 mg PO DAILY Hold Instructions: Resume on 04/02/25. Please hold for 1 month to allow the your stomach ulcer to heal. losartan 50 mg tablet 50 mg PO DAILY Qty: 90 3RF Hold Instructions: Resume on 03/17/25. amlodipine 5 mg tablet 5 mg PO DAILY Qty: 90 3RF Hold Instructions: Resume on 03/17/25. Referrals / Follow Up: José Luis Leach DO [Med Staff - Active Staff] - Renato Bonilla Chi, MD [Primary Care Provider] - Disposition Disposition (needs filled in before D/C Order can be placed): Home, Self Care Charges/Coding Visit Charges Inpatient E&M: 91842 Disch Hosp >30min 03/01/25 1109 <Electronically signed by Ruben Whitley DO> Cosigner Signature (if applicable): CC: Dr. Ruben Whitley DO; Dr. Renato Bonilla MD~ Signed ADDENDUM by Dr. Ruben Whitley DO on 03/01/25 at 1216 Addendum Notably patient was admitted under inpatient status but improved more quickly than anticipated and was able to be discharged home on hospital day 2. 03/01/25 1216<Electronically signed by Ruben Whitley DO> Cosigner Signature (if applicable): cc: Dr. Ruben Whitley DO; Dr. Renato Bonilla MD ~* Signed [facility] Work Phone: 1(274) 115-314408-30-2025 Discharge summary [facility] Medical Records Department [address] [place] [address] Instructions for Home/Discharge Instructions 03/01/25 0932 MR#: [id number] Acct: [id number] Name: AMIE RYAN Rep #:[id number] : 1960 64 From: Ruben hicks DO PCP: Dr. Renato Bonilla MD Status:ADM I N Discharge Instructions DC O2, CPAP, BIPAP needs Home O2 Discharge instructions: No Dressing / Incision Discharge Activity: No Restrictions Follow Up Care Test Results: Test results from this visit will be discussed in further detail at your follow- up appointment, if applicable. Discharge Plan Admission Admit Date/Time: 02/28/25 11:27 Primary Reason for Your Visit: fatigue and dark stools Attending Provider: Ruben Whitley Primary Care Provider: Renato Bonilla Chi Consulting Providers: Erik Hylton; José Luis Leach; Melinda Cummings; Niecy Radford; Yuki Tinajero; Tracy Chow Instructions Additional Instructions / Restrictions: Please start taking the following medications: ? Pantoprazole 40 mg twice daily ? Sucralfate 1 g 3 times daily before meals for 1 month Please hold the following medications: ? Aspirin: Hold on taking this for 1 month to allow your stomach ulcer to heal ? Amlodipine and losartan: Your blood pressures were in low normal range here. Hold on taking theseblood pressure medications until follow-up with your primary care doctor. Please call the GI office soon to schedule a follow-up appointment. Discharge Orders/Prescriptions Prescriptions: Continued magnesium oxide 400 mg magnesium tablet 400 mg PO DAILY cyclobenzaprine 10 mg tablet 10 mg PO DAILY PRN (Reason: muscle spasm) atorvastatin 40 mg tablet 40 mg PO QHS Qty: 30 2RF calcium carbonate [Calcium 600] 600 mg calcium (1,500 mg) tablet 600 mg PO DAILY ferrous sulfate [FeroSul] 325 mg (65 mg iron) tablet 325 mg PO Q OTHER DAY cholecalciferol (vitamin D3) [Vitamin D3] 25 mcg (1,000 unit) tablet 25 mcg PO DAILY Gemtesa 75 mg tablet 75 mg PO DAILY pantoprazole 40 mg tablet,delayed release (DR/EC) 40 mg PO BID 90 Days Qty: 180 0RF Changed sucralfate 1 gram tablet 1 g PO TID 30 Days Qty: 90 0RF Held aspirin [Adult Aspirin Regimen] 81 mg tablet,delayed release (DR/EC) 81 mg PO DAILY Hold Instructions: Resume on 04/02/25. Please hold for 1 month to allow the your stomach ulcer to heal. losartan 50 mg tablet 50 mg PO DAILY Qty: 90 3RF Hold Instructions: Resume on 03/17/25. amlodipine 5 mg tablet 5 mg PO DAILY Qty: 90 3RF Hold Instructions: Resume on 03/17/25. Referrals / Follow Up: José Luis Leach DO [Med Staff - Active Staff] - Renato Bonilla Chi, MD [Primary Care Provider] - Disposition Disposition (needs filled in before D/C Order can be placed): Home, [facility] 03/01/25 1020Aledonnell Whitley DO CC: JENNIFER Cummings; JENNIFER Radford; Dr. Tracy Chow DO; Dr. Erik Hylton MD; Dr. Renato Bonilla MD; KISHA Lance; José Luis Leach DO ~ Signed [facility]08-30-2025 [facility] Medical Records Department [address] [place] [address] Discharge Summary 03/01/25 0932 MR#: [id number] Acct: [id number] Name: AMIE RYAN Rep #: [id number] : 1960 64 From: Ruben Whitley DO PCP: Dr. Renato Bonilla MD Status:ADM IN [place] [facility] [id number] Providers Date of Admission: 02/28/25 Date of Discharge: 03/01/25 Primary Care Physician: Dr. Renato Bonilla MD Consultations 02/28/25 12:08 Consult: Gastroenterology Routine Consulting Provider: [facility] Reason for Consult: GI bleed EMERGENT Consult: No MD Notified: Yes Date Notified: 02/28/25 Time Notified: 11:30 Method of Notification: ED Physician Initiated Reason For Visit: ACUTE ANEMIA 2/2 GIB Diagnosis Discharge Diagnosis (1) GI bleed: Status: Acute Code(s): K92.2 - Gastrointestinal hemorrhage, unspecified (2) Acute anemia: Status: Acute Code(s): D64.9 - Anemia, unspecified Medications at Discharge Home Medications magnesium oxide 400 mg PO DAILY 11/12/21 cyclobenzaprine 10 mg tablet 10 mg PO DAILY PRN muscle spasm 05/11/23 atorvastatin 40 mg tablet 40 mg PO QHS #30 tabs 05/17/23 cholecalciferol (vitamin D3) 25 mcg (1,000 unit) tablet (Vitamin D3) 25 mcg PO DAILY 05/31/23 aspirin 81 mg tablet,delayed release (Adult Aspirin Regimen) 81 mg PO DAILY 06/12/23 Held on 03/01/25. Instructions: Resume on 04/02/25. Please hold for 1 month to allow the your stomach ulcer to heal. calcium carbonate (Calcium 600) 600 mg PO DAILY 02/22/24 ferrous sulfate 325 mg (65 mg iron) tablet (FeroSul) 325 mg PO Q OTHER DAY 02/22/24 losartan 50 mg tablet 50 mg PO DAILY #90 tabs 06/28/24 Held on 03/01/25. Instructions: Resume on 03/17/25. amlodipine 5 mg tablet 5 mg PO DAILY #90 tabs 02/19/25 Held on 03/01/25. Instructions: Resume on 03/17/25. vibegron 75 mg tablet (Gemtesa) 75 mg PO DAILY 02/28/25 pantoprazole 40 mg tablet,delayed release 40 mg PO BID 90 days #180 tabs 03/01/25 sucralfate 1 gram tablet 1 g PO TID 30 days #90 tabs 03/01/25 Hospital Course Operations None Procedures EGD Summary of Care Provided Minutes Spent on Discharge: 35 Hospital Course: Patient is a 64-year-old female who presented to [facility] ED on 02/28/2025 with fatigue and dark stools. Short hospital course as noted below. Patient discharged home in stable condition on 03/01. 1. Acute blood loss anemia secondary to upper GI bleed from peptic ulcer disease ??? GI followed. Hemoglobin 6.7 on admit, down from baseline of 11-12. Hemoglobin notably was 11.5 only 4 days prior. EGD on 02/28 showed a gastric ulcer with a pumping vessel; 3 clips placed, plasma coagulation used and was also injected with epinephrine. Given 2 units of blood and hemoglobin stable at 9.0 on 03/01. Initiated on diet on evening of 02/28 and tolerated without issue. Per GI, will treat with p.o. PPI twice daily for at least 3 months and sucralfate 3 times daily with meals for 1 month. Will hold home baby aspirin for 1 month. Continue iron supplement. Outpatient follow-up with GI as needed. 2. History of CAD with stenting, hypertension, hyperlipidemia, history of SVT ??? Had stenting x 1 done in June 2023. Blood pressure low normal during hospitalization. Last echo notably showed EF 55 to 60%. Will hold baby aspirin for 1 month on discharge due to severe GI bleed as above. Will hold home amlodipine and losartan on discharge for now; recommend close outpatient follow-up with PCP and can resume when able. Continue home statin. Chronic medical conditions: ??? Overactive bladder: Continue home medication. ??? Osteoporosis: Continue home vitamin D and calcium supplementation. ??? History of vasovagal syncope: Noted on previous tilt table test. Outpatient management. ??? History of thoracic pseudoaneurysm of the aorta: Outpatient follow-up with vascular/thoracic surgery. ??? History of tobacco abuse: Encouraged continued cessation. Total clinical time spent by myself addressing the patient's medical issues, reviewing all the data, and collaborating with patient's care team: 35 minutes. Physical Exam Const alert, oriented x3, no apparent distress, average body habitus, healthy appearing and well nourished Constitutional Narrative: Pleasant middle-age female, good energy level, sitting back comfortably in bed, conversing normally, in no acute distress. General Appearance: cooperative, comfortable, well kempt and well developed HEENT normocephalic, head/scalp atraumatic, hearing grossly normal bilaterally, nasal mucous membranes and turbinates normal and moist oral mucous membranes Eyes PERRL, EOMs intact bilaterally and conjunctivae normal Neck full ROM Chest inspection of chest normal Resp normal respiratory effort, normal air movement, no use of accessory muscles and clear to auscultation (more content not included)...[facility]08-29-2025 History and physical note Author Tracy Chow [facility] Note Date/Time February 28, 2025 4: 15pm [facility] Medical Records Department [address] [place] [address] H&P Exam - Hospitalist 02/28/25 1123 MR#: [id number] Acct: [id number] Name: AMIE RYAN Rep #:[id number] : 1960 64 From: Tracy Chow DO PCP: Dr. Renato Bonilla MD Status:ADM I N Location[place] [facility] [place] [id number] HPI - General General Date of Admission: 02/28/25 Date of Service: 02/28/25 Chief Complaint: Abnormal outpatient lab HPI Narrative AMIE RYAN, is a 64 F who presented to the emergency department at [facility] on 02/28/2025 due to abnormal labs. The patient was having generalized fatigue and mild shortness of breath and an outpatient CBC was drawnand she was noted to be markedly anemic. She reported on Monday she was havingsimilar symptoms and went to [facility] and seen in the emergency department where her hemoglobin was found to be 7. It had previously been 11-12. She was given 1 unit of packed red blood cells and observed overnight. No intervention was pursued and she was discharged. She indicates she had fecal, positive stools at that time. She reported over the past few days she has continued to have melanotic stools as well as generalized fatigue and shortness of breath. She called her primary care physician on the day of admission and she was told to be evaluated in the emergency department. She denied abdominal pain, nausea or vomiting. No stool changes at the time of presentation. She debra iron supplementation every other day. She is on aspirin at baseline but takes no other blood thinners or antiplatelet therapy. She does have previous cardiac stent in 2022. She did have an EGD and colonoscopy [place] [address] Bennett. She has never had GI bleed previously. The majority of the history was taken from the emergency department H&P as the patient was seen Vital signs on presentation showed a temperature of 97.6, heart rate 83, respiratory was 14, blood pressure was 126/70 and pulse ox was 98% on room air. CBC showed a hemoglobin of 6.7 but was otherwise unremarkable. Chemistry panel was unremarkable other than the elevated BUN to creatinine ratio with a BUN of 34 and a serum creatinine of 0.82 with a ratio 41.6. Given these findings upper GI bleed was suspected. Gastroenterology was contacted by the emergency department and the plan is for EGD later today. 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) Anxiety Shortness of breath on exertion History of echocardiogram History of stress test Cardiology follow-up encounter History of irregular heartbeat Guaiac positive stools Abnormal ECG Anemia Blood in stool Pseudoaneurysm of aorta Fatigue Syncope Vitamin D deficiency Major depressive disorder, recurrent episode, in full remission Lightheadedness Numbness and tingling in both hands Bradycardia Wears contact lenses Post-menopausal Excessive bleeding Easy bruising Restless legs Back pain History of IBS Former smoker Encounter for screening for malignant neoplasm of colon Muscle spasm Hyperlipidemia Hypertension Home Medications ?Medication ?Instructions ?Recorded ?Last Taken ?Type magnesium oxide 400 mg PO DAILY 11/12/21 Unk nown History cyclobenzaprine 10 mg tablet 10 mg PO DAILY PRN muscle spasm 05/11/23 Unknown History atorvastatin 40 mg tablet 40 mg PO QHS #30 tabs Unknown Rx cholecalciferol (vitamin D3) 25 25 mcg PO DAILY Unknown History mcg (1,000 unit) tablet (Vitamin D3) aspirin 81 mg tablet,delayed 81 mg PO DAILY 06/12/23 1 08/16/22 History release (Adult Aspirin Regimen) calcium carbonate (Calcium 600) 600 mg PO DAILY Unknown History ferrous sulfate 325 mg (65 mg 325 mg PO Q OTHER DAY Unknown History iron) tablet (FeroSul) losartan 50 mg tablet 50 mg PO DAILY #90 tabs 06/03 01/23 Unknown Rx Held on 02/28/25. Instructions: per t report amlodipine 5 mg tablet 5 mg PO DAILY #90 tabs 02/19 Unknown Rx Held on 02/28/25. Instructions: per pt preport pantoprazole 40 mg tablet,delayed 40 mg PO BID 5 Unknown History release sucralfate 1 gram tablet 1 g PO BID 02/28/25 Unknown History vibegron 75 mg tablet (Gemtesa) 75 mg PO DAILY 5 Unknown History Allergy/AdvReac Type Severity Reaction Status Date / Time No Known Allergies Allergy Verified 02/28/25 09:22 Family History Mother Hypertension Cancer Arthritis CVA (cerebral vascular accident) Stomach ulcer Father Cancer bladder Grandmother Cancer Uncle Prostate carcinoma Surgical History Stented coronary artery (06/15/23) Hx of hysterectomy Hx of colonoscopy Social History household members: spouse Smoking Status: Former smoker alcohol intake: former year quit: 1990 substance use type: does not use caffeine: Yes Type: carbonated beverages Number of servings: 1 ROS Review of Systems ROS Unobtainable: Denies due to encephalopathy, due to endotracheal tube, due tomental condition, due to mental status or other Constitutional Constitutional: Reports fatigue and weakness; Denies anorexia, change in weight,chills, fever(s), malaise, night sweats or other Eyes Eyes: Denies blurry vision, change in eye color, change in vision, discharge from eye(s), double vision, erythema, eye pain, loss of vision or other ENT HEENT: Denies abnormal hearing, dysphagia, ear pain, epistaxis, headache(s), hearing loss, nasal congestion, nasal discharge, post nasal drip, sinus pressure, sore throat or other Cardiovascular Cardiovascular: Reports dyspnea on exertion; Denies chest pain, claudication, edema, lightheadedness, orthopnea, palpitations, paroxysmal nocturnal dyspnea, rapid heart rate, syncope or other Respiratory/Chest Respiratory/Chest: Reports dyspnea, shortness of breath at rest and shortness ofbreath with exertion; Denies cough, excessive phlegm production, hemoptysis, productive cough, wheezing or other Gastrointestinal Gastrointestinal: Reports melena; Denies abdominal pain, coffee ground emesis, constipation, diarrhea, dyspepsia, hematemesis, hematochezia, loose stools, nausea, vomiting or other Genitourinary Genitourinary: Denies burning urination, difficulty urinating, dysuria, hematuria, nocturia, urinary frequency, urinary hesitancy, urinary incontinence,urinary urgency or other Musculoskeletal Musculoskeletal: Reports back pain; Denies arthralgias, joint pain, joint stiffness, joint swelling, myalgias, neck pain or other Neurologic Neurologic: Denies abnormal gait, abnormal speech, confusion, disequilibrium, dizziness, focal weakness, headache(s), numbness, paresthesias, seizure-like activity, seizures, syncope, tingling, tremor(s) or other Psychiatric Psychiatric: Denies anxiety, depression, homicidal ideation, suicidal ideation or other Endocrine Endocrinology: Denies change in body appearance, cold intolerance, excessive sweating, heat intolerance, polydipsia, polyuria or other Hematologic/Lymphatic Hematologic/Lymphatic: Denies anemia, easy bleeding, easy bruising, lymphadenopathy or other Allergic/Immunologic Allergic/Immunologic: Denies rhinitis, hives, eczemia, asthma or other Vital Signs Vital Signs Vital Signs: 02/28/25 09:22 02/28/25 09:43 Temperature 97.6 F L Temperature Source Temporal Pulse Rate 83 Respiratory Rate 14 Respiratory Pattern Normal Blood Pressure 126/70 H Blood Pressure Mean 88 Pulse Ox 98 Oxygen Delivery Method Room Air Weight Weight: 58.5 kg Body Mass Index (BMI) 22.8 Physical Exam Const alert, oriented x3, average body habitus and well nourished; Negative for no apparent distress or healthy appearing Constitutional Narrative: Sleepy but arousable upper middle-aged, white female, lying in bed, currently mildly uncomfortable from cautery and clipping due to postprocedural abdominal pain, does not appear toxic General Appearance: cooperative HEENT normocephalic and head/scalp atraumatic Eyes Negative for conjunctivae normal Eyes Narrative: No scleral icterus Neck supple Neck Narrative: Trachea midline Resp normal respiratory effort, no retractions, no use of accessory muscles and clearto auscultation bilaterally Auscultation: Negative for rales, rhonchi or wheezes Cardio regular rate, regular rhythm, S1 normal heart sound, S2 normal heart sound, no murmurs, no rub, no gallops and no clicks Cardio Narrative: Intermittent ectopic beat GI normal to inspection, nondistended, normoactive bowel sounds and soft to palpation GI Narrative: Tenderness in the epigastrium Extremity no clubbing, cyanosis or edema Extremity Narrative: 2+ pedal and radial pulses Skin Skin Narrative: Pale Neuro moves all extremities and no focal motor deficits Neuro Narrative: Sleepy due to sedation for procedure Psych affect normal Results Lab / Micro Data 02/28/25 09:40 02/28/25 09:40 Labs: Laboratory Results - last 24 hr 02/28/25 09:40: WBC 5.7, RBC 2.05 L, Hgb 6.7 L, Hct 20.0 L, MCV 97.6, MCH 32.7 H, MCHC 33.5, RDW Std Deviation 48.3 H, RDW Coeff of Yulia 13.6, Plt Count 255, MPV8.8, Immature Gran % (Auto) 1.200 H, Neut % (Auto) 56.9, Lymph % (Auto) 27.7, Eaton % (Auto) 10.5 H, Eos % (Auto) 3.3, Baso % (Auto) 0.4, Absolute Neuts (auto) 3.3, Absolute Lymphs (auto) 1.58, Nucleated RBC % 0.5, Sodium 136, Potassium 4.2, Chloride 102, Carbon Dioxide 24.3, Anion Gap 9, BUN 34 H, Creatinine 0.82, Estim Creat Clear Calc 58.84, Est GFR (MDRD) Non-Af 81, BUN/Creatinine Ratio 41.6 H, Glucose 107 H, Calcium 8.6, Total Bilirubin 0.20, AST 22, ALT 14, Alkaline Phosphatase 58, Total Protein 5.9, Albumin 3.9, Globulin 2.0 L, Albumin/Globulin Ratio 1.9 02/28/25 10:30: Crossmatch See Detail 02/28/25 11:10: Urine Color Straw, Urine Clarity Clear, Urine pH 6.0, Ur Specific [place] 1.005, Urine Protein Negative, Urine Glucose (UA) Normal, UrineKetones Negative, Urine Occult Blood Negative, Urine Nitrite Negative, Urine Bilirubin Negative, Urine Urobilinogen Normal, Ur Leukocyte Esterase Negative Assessment & Plan Assessment/Plan (1) GI bleed: (2) Acute anemia: PLAN: Plan Acute Anemia secondary to GI bleed - Suspected upper GI bleed with elevated BUN/creatinine ratio - Protonix bolus and then start Protonix drip - If ulceration is found consider Carafate - Serial hemoglobin - Type and cross/transfuse 2 units packed red blood cells - N.p.o. currently - Hold aspirin -Continue home iron supplementation - GI consultation for endoscopy CAD/hyperlipidemia/hypertension - Antihypertensives on hold currently - Continue statin - Previous stented coronary artery on 06/15/2023 - Aspirin on hold due to the above - Patient is no longer on dual antiplatelet therapy - Last echocardiogram shows an EF of 55 to 60% History of vasovagal syncope -Previous workup with a tilt table test demonstrated and vaso depressive symptoms Thoracic pseudoaneurysm of the aorta - Follows with vascular/thoracic surgery for this - Has been stable with medications History of SVT - Noted on a event monitor from 10/29/2024 - Is supposed to follow-up as an outpatient GERD - Hold home Protonix - Will continue Carafate but do 4 times daily - Workup as above Overactive bladder - Continue home medication Osteoporosis - Continue home vitamin D and calcium supplementation History of tobacco abuse - Remote - Encouraged ongoing cessation DVT prophylaxis - Chemoprophylaxis contraindicated due to GI bleed on presentation - SCDs CODE STATUS Full code Charges/Coding Visit Charges Inpatient E&M: 42157 Init Hosp L2 02/28/25 1615 <Electronically signed by Tracy Chow DO> Cosigner Signature (if applicable): CC: Dr. Tracy Chow DO; Dr. Renato Bonilla MD~ Signed [facility] Work Phone: [phone]) 806-210108-29-2025 Consult note Author Zelalem Sifuentes [facility] Note Date/Time February 28, 2025 3: 30pm [place] Medical Records Department [address] [place] [address] [place] [address] Anesthesia Postop Eval II 02/28/25 1529 MR#: [id number] Acct: [id number] Name: AMIE RYAN Rep #:[id number] : 1960 64 From: Zelalem Sifuentes MD PCP: Dr. Renato Bonilla MD Status:ADM I N Y Race: C Location: [place] [address] Anesthesia Postop Eval I Sum Postop Eval Completion status Anesthesia document: Postop Eval 1 completed: Yes Anesthesia Postop Eval I Summary Anesthesia Postop Eval I Summary: Anesthesia Postop Eval I: Assessment Summary Airway patent Yes 02/28/25 15:17 SITE LEASING AGENT.CSIR Spontaneous unlabored Yes 02/28/25 15:17 SITE LEASING AGENT.CSIR respirations Mental status nausea No 02/28/25 15:17 SITE LEASING AGENT.CSIR Vomiting No 02/28/25 15:17 SITE LEASING AGENT.CSIR Anesthesia Postop Eval I: Fluid Summary Crystalloid volume administer 300 02/28/25 15:17 SITE LEASING AGENT.CSIR (ml) Colloids volume administered ( ml) Blood Product volume administered (ml) Total IV fluid infused 300 02/28/25 15:17 SITE LEASING AGENT.CSIR Anesthesia Postop Eval I: Summary Notes Anesthesia Complication No 02/28/25 15:17 SITE LEASING AGENT.CSIR Anesthesia Complication Comment: Post-operative progress note Anesthesia: Postop Eval II Evaluation Mental status: Awake Pain Level: 0 nausea: No Vomiting: No 02/28/25 1530 <Electronically signed by Zelalem Sifuentes MD> Date _ Zelalem Sifuentes MD Cosigner Signature: Date CC: ~ Signed [facility] Work Phone: 1(767) 841-568708-29-2025 Consult note Author Cecilia Biswas [facility] Note Date/Time February 28, 2025 3: 18pm [place] Medical Records Department [facility] [place] [address] Anesthesia Postop Eval I 08/29/25 1517 MR#: [id number] Acct: [id number] Name: AMIE RYAN Rep #:[id number] : 1960 64 From: Cecilia Biswas CRNA PCP: Dr. Renato Bonilla MD Status:ADM I N Y Race: C Location: [place] [address] Anesthesia: Postop Eval I Current Vital Signs Temperature: 98.3 F Pulse Rate: 85 Blood Pressure: 90/69 Respiratory Rate: 18 Pulse Ox: 95 Assessment Airway patent: Yes Spontaneous unlabored respirations: Yes nausea: No Vomiting: No Anesthesia Complication: No Fluid Hydration Crystalloid volume administer (ml): 300 Total IV fluid infused: 300 Progress Note Anesthesia document: Postop Eval 1 completed: Yes 02/28/25 151 <Electronically signed by Cecilia bourgeois CRNA> Date _ Cecilia Biswas CRNA Cosigner Signature: Date CC: ~ Signed [facility] Work Phone: 1(967) 573-280108-29-2025 History and physical note [facility] Medical Records Department [address] [place] [address] H&P Exam - Hospitalist 02/28/25 1123 MR#: [id number] Acct: [id number] Name: AMIE RYAN Rep #:[id number] : 1960 64 From: Tracy Chow DO PCP: Dr. Renato Bonilla MD Status:ADM I N Location: [place] [address] HPI - General General Date of Admission: 02/28/25 Date of Service: 02/28/25 Chief Complaint: Abnormal outpatient lab HPI Narrative AMIE RYAN, is a 64 F who presented to the emergency department at [facility] on 02/28/2025 due to abnormal labs. The patient was having generalized fatigue and mild shortness of breath and an outpatient CBC was drawnand she was noted to be markedly anemic. She reported on Monday she was havingsimilar symptoms and went to [facility] and seen in the emergency department where her hemoglobin was found to be 7. It had previously been 11-12. She was given 1 unit of packed red blood cells and observed overnight. No intervention was pursued and she was discharged. She indicates she had fecal, positive stools at that time. She reported over the past few days she has continued to have melanotic stools as well as generalized fatigue and shortness of breath. She called her primary care physician on the day of admission and she was told to be evaluated in the emergency department. She denied abdominal pain, nausea or vomiting. No stool changes at the time of presentation.She debra iron supplementation every other day. She is on aspirin at baseline but takes no other blood thinners or antiplatelet therapy. She does have previous cardiac stent in 2022. She did have an EGD and colonoscopy in [address] Bennett. She has never had GI bleed previously. The majority ofthe history was taken from the emergency department H&P as the patient was seen Vital signs on presentation showed a temperature of 97.6, heart rate 83, respiratory was 14, blood pressure was 126/70 and pulse ox was 98% on room air. CBC showed a hemoglobin of 6.7 but was otherwise unremarkable. Chemistry panel was unremarkable other than the elevated BUN to creatinine ratio with a BUN of 34 and a serum creatinine of 0.82 with a ratio 41.6. Given these findings upper GI bleed was suspected. Gastroenterology was contacted by the emergency department and the plan is for EGD later today. 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) Anxiety Shortness of breath on exertion History of echocardiogram History of stress test Cardiology follow-up encounter History of irregular heartbeat Guaiac positive stools Abnormal ECG Anemia Blood in stool Pseudoaneurysm of aorta Fatigue Syncope Vitamin D deficiency Major depressive disorder, recurrent episode, in full remission Lightheadedness Numbness and tingling in both hands Bradycardia Wears contact lenses Post-menopausal Excessive bleeding Easy bruising Restless legs Back pain History of IBS Former smoker Encounter for screening for malignant neoplasm of colon Muscle spasm Hyperlipidemia Hypertension Home Medications ?Medication ?Instructions ?Recorded ?Last Taken ?Type magnesium oxide 400 mg PO DAILY 11/12/21 Unk nown History cyclobenzaprine 10 mg tablet 10 mg PO DAILY PRN muscle spasm 05/11/23 Unknown History atorvastatin 40 mg tablet 40 mg PO QHS #30 tabs Unknown Rx cholecalciferol (vitamin D3) 25 25 mcg PO DAILY Unknown History mcg (1,000 unit) tablet (Vitamin D3) aspirin 81 mg tablet,delayed 81 mg PO DAILY 06/12/23 1 08/16/22 History release (Adult Aspirin Regimen) calcium carbonate (Calcium 600) 600 mg PO DAILY Unknown History ferrous sulfate 325 mg (65 mg 325 mg PO Q OTHER DAY Unknown History iron) tablet (FeroSul) losartan 50 mg tablet 50 mg PO DAILY #90 tabs 06/03 01/23 Unknown Rx Held on 02/28/25. Instructions: per t report amlodipine 5 mg tablet 5 mg PO DAILY #90 tabs 02/19 Unknown Rx Held on 02/28/25. Instructions: per pt preport pantoprazole 40 mg tablet,delayed 40 mg PO BID 5 Unknown History release sucralfate 1 gram tablet 1 g PO BID 02/28/25 Unknown History vibegron 75 mg tablet (Gemtesa) 75 mg PO DAILY 5 Unknown History Allergy/AdvReac Type Severity Reaction Status Date / Time No Known Allergies Allergy Verified 02/28/25 09:22 Family History Mother Hypertension Cancer Arthritis CVA (cerebral vascular accident) Stomach ulcer Father Cancer bladder Grandmother Cancer Uncle Prostate carcinoma Surgical History Stented coronary artery (06/15/23) Hx of hysterectomy Hx of colonoscopy Social History household members: spouse Smoking Status: Former smoker alcohol intake: former year quit: 1990 substance use type: does not use caffeine: Yes Type: carbonated beverages Number of servings: 1 ROS Review of Systems ROS Unobtainable: Denies due to encephalopathy, due to endotracheal tube, due tomental condition, due to mental status or other Constitutional Constitutional: Reports fatigue and weakness; Denies anorexia, change in weight,chills, fever(s), malaise, night sweats or other Eyes Eyes: Denies blurry vision, change in eye color, change in vision, discharge from eye(s), double vision, erythema, eye pain, loss of vision or other ENT HEENT: Denies abnormal hearing, dysphagia, ear pain, epistaxis, headache(s), hearing loss, nasal congestion, nasal discharge, post nasal drip, sinus pressure, sore throat or other Cardiovascular Cardiovascular: Reports dyspnea on exertion; Denies chest pain, claudication, edema, lightheadedness, orthopnea, palpitations, paroxysmal nocturnal dyspnea, rapid heart rate, syncope or other Respiratory/Chest Respiratory/Chest: Reports dyspnea, shortness of breath at rest and shortness ofbreath with exertion; Denies cough, excessive phlegm production, hemoptysis, productive cough, wheezing or other Gastrointestinal Gastrointestinal: Reports melena; Denies abdominal pain, coffee ground emesis, constipation, diarrhea, dyspepsia, hematemesis, hematochezia, loose stools, nausea, vomiting or other Genitourinary Genitourinary: Denies burning urination, difficulty urinating, dysuria, hematuria, nocturia, urinary frequency, urinary hesitancy, urinary incontinence,urinary urgency or other Musculoskeletal Musculoskeletal: Reports back pain; Denies arthralgias, joint pain, joint stiffness, joint swelling, myalgias, neck pain or other Neurologic Neurologic: Denies abnormal gait, abnormal speech, confusion, disequilibrium, dizziness, focal weakness, headache(s), numbness, paresthesias, seizure-like activity, seizures, syncope, tingling, tremor(s) or other Psychiatric Psychiatric: Denies anxiety, depression, homicidal ideation, suicidal ideation or other Endocrine Endocrinology: Denies change in body appearance, cold intolerance, excessive sweating, heat intolerance, polydipsia, polyuria or other Hematologic/Lymphatic Hematologic/Lymphatic: Denies anemia, easy bleeding, easy bruising, lymphadenopathy or other Allergic/Immunologic Allergic/Immunologic: Denies rhinitis, hives, eczemia, asthma or other Vital Signs Vital Signs Vital Signs: 02/28/25 09:22 02/28/25 09:43 Temperature 97.6 F L Temperature Source Temporal Pulse Rate 83 Respiratory Rate 14 Respiratory Pattern Normal Blood Pressure 126/70 H Blood Pressure Mean 88 Pulse Ox 98 Oxygen Delivery Method Room Air Weight Weight: 58.5 kg Body Mass Index (BMI) 22.8 Physical Exam Const alert, oriented x3, average body habitus and well nourished; Negative for no apparent distress or healthy appearing Constitutional Narrative: Sleepy but arousable upper middle-aged, white female, lying in bed, currently mildly uncomfortable from cautery and clipping due to postprocedural abdominal pain, does not appear toxic General Appearance: cooperative HEENT normocephalic and head/scalp atraumatic Eyes Negative for conjunctivae normal Eyes Narrative: No scleral icterus Neck supple Neck Narrative: Trachea midline Resp normal respiratory effort, no retractions, no use of accessory muscles and clearto auscultation bilaterally Auscultation: Negative for rales, rhonchi or wheezes Cardio regular rate, regular rhythm, S1 normal heart sound, S2 normal heart sound, no murmurs, no rub, no gallops and no clicks Cardio Narrative: Intermittent ectopic beat GI normal to inspection, nondistended, normoactive bowel sounds and soft to palpation GI Narrative: Tenderness in the epigastrium Extremity no clubbing, cyanosis or edema Extremity Narrative: 2+ pedal and radial pulses Skin Skin Narrative: Pale Neuro moves all extremities and no focal motor deficits Neuro Narrative: Sleepy due to sedation for procedure Psych affect normal Results Lab / Micro Data 02/28/25 09:40 02/28/25 09:40 Labs: Laboratory Results - last 24 hr 02/28/25 09:40: WBC 5.7, RBC 2.05 L, Hgb 6.7 L, Hct 20.0 L, MCV 97.6, MCH 32.7 H, MCHC 33.5, RDW Std Deviation 48.3 H, RDW Coeff of Yulia 13.6, Plt Count 255, MPV8.8, Immature Gran % (Auto) 1.200 H, Neut % (Auto) 56.9, Lymph % (Auto) 27.7, Eaton % (Auto) 10.5 H, Eos % (Auto) 3.3, Baso % (Auto) 0.4, Absolute Neuts (auto) 3.3, Absolute Lymphs (auto) 1.58, Nucleated RBC % 0.5, Sodium 136, Potassium 4.2, Chloride 102, Carbon Dioxide 24.3, Anion Gap 9, BUN 34 H, Creatinine 0.82, Estim Creat Clear Calc 58.84, Est GFR (MDRD) Non-Af 81, BUN/Creatinine Ratio 41.6 H, Glucose 107 H, Calcium 8.6, Total Bilirubin 0.20, AST 22, ALT 14, Alkaline Phosphatase 58, Total Protein 5.9, Albumin 3.9, Globulin 2.0 L, Albumin/Globulin Ratio 1.9 02/28/25 10:30: Crossmatch See Detail 02/28/25 11:10: Urine Color Straw, Urine Clarity Clear, Urine pH 6.0, Ur Specific [place] 1.005, Urine Protein Negative, Urine Glucose (UA) Normal, UrineKetones Negative, Urine Occult Blood Negative,Urine Nitrite Negative, Urine Bilirubin Negative, Urine Urobilinogen Normal, Ur Leukocyte Esterase Negative Assessment & Plan Assessment/Plan (1) GI bleed: (2) Acute anemia: PLAN: Plan Acute Anemia secondary to GI bleed - Suspected upper GI bleed with elevated BUN/creatinine ratio - Protonix bolus and then start Protonix drip - If ulceration is found consider Carafate - Serial hemoglobin - Type and cross/transfuse 2 units packed red blood cells - N.p.o. currently - Hold aspirin -Continue home iron supplementation - GI consultation for endoscopy CAD/hyperlipidemia/hypertension - Antihypertensives on hold currently - Continue statin - Previous stented coronary artery on 06/15/2023 - Aspirin on hold due to the above - Patient is no longer on dual antiplatelet therapy - Last echocardiogram shows an EF of 55 to 60% History of vasovagal syncope -Previous workup with a tilt table test demonstrated and vaso depressive symptoms Thoracic pseudoaneurysm of the aorta - Follows with vascular/thoracic surgery for this - Has been stable with medications History of SVT - Noted on a event monitor from 10/29/2024 - Is supposed to follow-up as an outpatient GERD - Hold home Protonix - Will continue Carafate but do 4 times daily - Workup as above Overactive bladder - Continue home medication Osteoporosis - Continue home vitamin D and calcium supplementation History of tobacco abuse - Remote - Encouraged ongoing cessation DVT prophylaxis - Chemoprophylaxis contraindicated due to GI bleed on presentation - SCDs CODE STATUS Full code Charges/Coding Visit Charges Inpatient E&M: 72978 Init Hosp L2 02/28/25 1615 Cosigner Signature (if applicable): CC: Dr. Tracy Chow DO; Dr. Renato Bonilla MD~ Signed [facility]08-29-2025 Consult note [place] Medical Records Department [address] [place] [address] Anesthesia Postop Eval II 02/28/25 1529 MR#: [id number] Acct: [id number] Name: AMIE RYAN Rep #:[id number] : 1960 64 From: Zelalem Sifuentes MD PCP: Dr. Renato Bonilla MD Status:ADM I N Y Race: C Location: [place] [address] Anesthesia Postop Eval I Sum Postop Eval Completion status Anesthesia document: Postop Eval 1 completed: Yes Anesthesia Postop Eval I Summary Anesthesia Postop Eval I Summary: Anesthesia Postop Eval I: Assessment Summary Airway patent Yes 02/28/25 15:17 SITE LEASING AGENT.CSIR Spontaneous unlabored Yes 02/28/25 15:17 SITE LEASING AGENT.CSIR respirations Mental status nausea No 02/28/25 15:17 SITE LEASING AGENT.CSIR Vomiting No 02/28/25 15:17 SITE LEASING AGENT.CSIR Anesthesia Postop Eval I: Fluid Summary Crystalloid volume administer 300 02/28/25 15:17 SITE LEASING AGENT.CSIR (ml) Colloids volume administered ( ml) Blood Product volume administered (ml) Total IV fluid infused 300 02/28/25 15:17 SITE LEASING AGENT.CSIR Anesthesia Postop Eval I: Summary Notes Anesthesia Complication No 02/28/25 15:17 SITE LEASING AGENT.CSIR Anesthesia Complication Comment: Post-operative progress note Anesthesia: Postop Eval II Evaluation Mental status: Awake Pain Level: 0 nausea: No Vomiting: No 02/28/25 1530 MD> Date _ Zelalem DeHorta MD Cosigner Signature: Date CC: ~ Signed [facility]08-29-2025 Consult note [place] Medical Records Department [address] [facility] [place] [address] Anesthesia Postop Eval I 02/28/25 1517 MR#: [id number] Acct: [id number] Name: AMIE RYAN Rep #:[id number] : 1960 64 From: Cecilia Biswas SITE LEASING AGENT PCP: Dr. Renato Bonilla MD Status:ADM I N Y Race: C Location: [place] [address] Anesthesia: Postop Eval I Current Vital Signs Temperature: 98.3 F Pulse Rate: 85 Blood Pressure: 90/69 Respiratory Rate: 18 Pulse Ox: 95 Assessment Airway patent: Yes Spontaneous unlabored respirations: Yes nausea: No Vomiting: No Anesthesia Complication: No Fluid Hydration Crystalloid volume administer (ml): 300 Total IV fluid infused: 300 Progress Note Anesthesia document: Postop Eval 1 completed: Yes 02/28/25 151 a SITE LEASING AGENT> Date _ Cecilia Sirca CATRACHITO Cosigner Signature: Date CC: ~ Signed [facility]08-29-2025 Consult note Author José Luis Leach [facility] Note Date/Time February 28, 2025 1: 09pm [facility] Medical Records Department [address] [place] [address] Consultation - GI 02/28/25 1301 MR#: [id number] Acct: [id number] Name: AMIE RYAN Rep #:[id number] : 1960 64 From: José Luis Leach DO PCP: Dr. Renato Bonilla MD Status:ADM I N Location: [place]3 [id number] HPI Consult Data Date of Consult: 02/28/25 HPI Narrative Reason for Consultation: Anemia HPI Narrative: AMIE RYAN, is a 64-year-old female presenting to the emergency department for generalized fatigue, mild shortness of breath and abnormal outpatient hemoglobin. 64-year-old female with a history of coronary artery disease and peripheral artery disease reports increasing fatigue over the past several months. She notes she has less energy for her usual activities, and finds herself more short of breath with mild exertion. Symptoms are progressive. Patient denies overt signs of bleeding, such as black, tarry stools, or excessive bruising. Patient states that on Monday she was having similar symptoms, she went to [facility] emergency department where her hemoglobin was tested and it dropped from 11 to 7. She got 1 unit of PRBC and was observed overnight. She does report that she was fecal occult that was positive. She states that over the past few days she has continued to notice melanotic stool as well as generalizedfatigue. She Denies tobacco or illicit drug use. Occasional alcohol use. 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) Anxiety Shortness of breath on exertion History of echocardiogram History of stress test Cardiology follow-up encounter History of irregular heartbeat Guaiac positive stools Abnormal ECG Anemia Blood in stool Pseudoaneurysm of aorta Fatigue Syncope Vitamin D deficiency Major depressive disorder, recurrent episode, in full remission Lightheadedness Numbness and tingling in both hands Bradycardia Wears contact lenses Post-menopausal Excessive bleeding Easy bruising Restless legs Back pain History of IBS Former smoker Encounter for screening for malignant neoplasm of colon Muscle spasm Hyperlipidemia Hypertension Home Medications ?Medication ?Instructions ?Recorded ?Last Taken ?Type magnesium oxide 400 mg PO DAILY 11/12/21 Unk nown History cyclobenzaprine 10 mg tablet 10 mg PO DAILY PRN muscle spasm 05/11/23 Unknown History atorvastatin 40 mg tablet 40 mg PO QHS #30 tabs Unknown Rx cholecalciferol (vitamin D3) 25 25 mcg PO DAILY Unknown History mcg (1,000 unit) tablet (Vitamin D3) aspirin 81 mg tablet,delayed 81 mg PO DAILY 06/12/23 1 08/16/22 History release (Adult Aspirin Regimen) calcium carbonate (Calcium 600) 600 mg PO DAILY Unknown History ferrous sulfate 325 mg (65 mg 325 mg PO Q OTHER DAY Unknown History iron) tablet (FeroSul) losartan 50 mg tablet 50 mg PO DAILY #90 tabs 06/03 01/23 Unknown Rx Held on 02/28/25. Instructions: per t report amlodipine 5 mg tablet 5 mg PO DAILY #90 tabs 02/19 Unknown Rx Held on 02/28/25. Instructions: per pt preport pantoprazole 40 mg tablet,delayed 40 mg PO BID 5 Unknown History release sucralfate 1 gram tablet 1 g PO BID 02/28/25 Unknown History vibegron 75 mg tablet (Gemtesa) 75 mg PO DAILY 5 Unknown History Allergy/AdvReac Type Severity Reaction Status Date / Time No Known Allergies Allergy Verified 02/28/25 09:22 Family History Mother Hypertension Cancer Arthritis CVA (cerebral vascular accident) Stomach ulcer Father Cancer bladder Grandmother Cancer Uncle Prostate carcinoma Surgical History Stented coronary artery (06/15/23) Hx of hysterectomy Hx of colonoscopy Social History household members: spouse Smoking Status: Former smoker alcohol intake: former year quit: 1990 substance use type: does not use caffeine: Yes Type: carbonated beverages Number of servings: 1 ROS Constitutional Constitutional: Denies fatigue, fever(s), poor appetite, weight gain or weight loss Gastrointestinal Gastrointestinal: Denies belching, bloating, change in bowel habits, change in stool character, chewing difficulty, coffee ground emesis, constipation, cramping, diarrhea, dyspepsia, dysphagia, early satiety, excessive flatus, fecalincontinence, heartburn, hematemesis, hematochezia, hemorrhoids, loose stools, melena, nausea, odynophagia, rectal bleeding, tenesmus, vomiting or weight changes Physical Exam Const alert, oriented x3, no apparent distress and healthy appearing General Appearance: cooperative GI normal to inspection, nondistended, normoactive bowel sounds, soft to palpation,non-tender and non-distended Percussion: normal to percussion Rectal Exam: deferred Lab / Micro Data 02/28/25 09:40 02/28/25 09:40 Labs: Laboratory Results - last 24 hr 02/28/25 09:40: WBC 5.7, RBC 2.05 L, Hgb 6.7 L, Hct 20.0 L, MCV 97.6, MCH 32.7 H, MCHC 33.5, RDW Std Deviation 48.3 H, RDW Coeff of Yulia 13.6, Plt Count 255, MPV8.8, Immature Gran % (Auto) 1.200 H, Neut % (Auto) 56.9, Lymph % (Auto) 27.7, Eaton % (Auto) 10.5 H, Eos % (Auto) 3.3, Baso % (Auto) 0.4, Absolute Neuts (auto) 3.3, Absolute Lymphs (auto) 1.58, Nucleated RBC % 0.5, Sodium 136, Potassium 4.2, Chloride 102, Carbon Dioxide 24.3, Anion Gap 9, BUN 34 H, Creatinine 0.82, Estim Creat Clear Calc 58.84, Est GFR (MDRD) Non-Af 81, BUN/Creatinine Ratio 41.6 H, Glucose 107 H, Calcium 8.6, Total Bilirubin 0.20, AST 22, ALT 14, Alkaline Phosphatase 58, Total Protein 5.9, Albumin 3.9, Globulin 2.0 L, Albumin/Globulin Ratio 1.9 02/28/25 10:30: Blood Type O POSITIVE, Antibody Screen NEGATIVE, Crossmatch See Detail 02/28/25 11:10: Urine Color Straw, Urine Clarity Clear, Urine pH 6.0, Ur Specific [place] 1.005, Urine Protein Negative, Urine Glucose (UA) Normal, UrineKetones Negative, Urine Occult Blood Negative, Urine Nitrite Negative, Urine Bilirubin Negative, Urine Urobilinogen Normal, Ur Leukocyte Esterase Negative, Urine RBC 0-5 SEEN, Urine WBC 0 SEEN, Ur Squamous Epith Cells 0-5 SEEN, Urine Bacteria 0 SEEN, Urine Mucus 0 SEEN Assessment & Plan Assessment/Plan (1) Acute anemia: (2) GI bleed: PLAN: Anemia of unknown etiology:?Patient is a 64-year-old female with significant fatigue and a severe drop in hemoglobin from 12 to 6.6 g/dL. This finding warrants immediate and thorough investigation. Anemia is common in patients withCAD and PAD and is an independent predictor of worse cardiovascular outcomes. The degree of anemia can worsen myocardial ischemia, especially with the patient's existing cardiovascular disease. * Differential Diagnosis for Severe Anemia: * Chronic Gastrointestinal Bleeding:?The most likely etiology for iron- deficiency anemia in an elderly patient is chronic GI blood loss, which can be exacerbated by long-term ASA use. * Anemia of Chronic Disease/Inflammation:?Chronic inflammation from her underlying cardiovascular disease can contribute to anemia by disrupting iron metabolism and blunting the bone marrow's response to erythropoietin. * Chronic Kidney Disease * ?A decline in kidney function with age can decrease erythropoietin production, leading to anemia. * Nutritional Deficiencies:?Deficiencies in iron, Vitamin B12, or folate can cause anemia. * Hematologic Malignancy (e.g., Myelodysplastic Syndrome):?While less common, this should be considered in the workup of unexplained anemia in an elderly patient.? * * Diagnostics: * Initial labs:?Order a full iron panel (serum iron, ferritin, total iron- binding capacity, transferrin saturation), a Reticulocyte Count, and vitamin B12 and folate levels. * Further workup for GI bleeding:?Strongly consider fecal occult blood testing and endoscopic evaluation (upper endoscopy +/- colonoscopy), given the long-term ASA use and severe anemia. * Investigate other etiologies:?If initial workup is non-revealing, further studies may include evaluating for renal function (serum creatinine, estimated GFR) and inflammatory markers. * Therapeutic Interventions: * Blood Transfusion:?Given the hemoglobin of 6.6 g/dL, a blood transfusion is likely indicated to manage symptoms of fatigue and prevent worsening cardiac ischemia. Transfusion thresholds for patients with underlying cardiac disease need careful consideration. * Medication Management:?Review ASA therapy. While critical for her CAD/PAD, it's a likely contributing factor to potential GI bleeding. Discuss risks/benefits and consider alternatives or adjuncts (e.g., proton pump inhibitor) with the patient after diagnostic workup. * Supplementation:?Initiate iron and/or vitamin supplementation based on lab results. Charges/Coding Visit Charges Inpatient E&M: 16309 Init Hosp L3 02/28/25 1309 <Electronically signed by José Luis Friend DO> Cosigner Signature (if applicable): CC: Dr. Renato Bonilla MD~ Signed [facility] Work Phone: [phone]) 912-968308-29-2025 Consult note Author Zelalem Sifuentes [facility] Note Date/Time February 28, 2025 1: 05pm [place] Medical Records Department [address] [place] [address] Pre-Anesthesia Evaluation 02/28/25 1259 MR#: [id number] Acct: [id number] Name: AMIE RYAN Rep #:[id number] : 1960 64 From: Zelalem Sifuentes MD PCP: Dr. Renato Bonilla MD Status:ADM I N Y Race: C [place] [facility] [id number] -[id number] ASA Classification* ASA Classification ASA Classification: 3 and E Assessment & Plan Anesthesia* Anesthesia Assessment Anesthesia Assessment: Discussed sedation and/or anesthesia options, risks, benefits, and alternatives with patient/parents/legal guardian/POA. Questions invited. The patient/parents/legal guardian/POA seems to understand and agrees to proceedwith anesthesia plan. Reviewed the physical assessment, medical history, allergy history and patient home medications list prior to surgery/procedure/anesthetic and documented any changes. Performed airway and anesthesia risk assessments. Anesthesia Type Anesthesia Type: MAC (patient known CAD/ASHD with hgb 6.7, denies any CP. Oneunit PRBC ready, transfuse LINDA. Will check EKG and run HS troponin from earlier blood draw. if all normal/stable can proceed with egd.) Anesthesia Focused Assessment* Temperature: 97.5 F Pulse Rate: 70 Blood Pressure: 120/72 Respiratory Rate: 16 Pulse Ox: 100 Airway Assessment Mouth opens: >3 cm Mallampati Score: II Labs Anesthesia Preop lab: CBC WBC 5.7 K/mm3 (4.4-11.0) 02/28/25 09:40 02/28/25 RBC 2.05 M/mm3 (4.2-5.4) L 02/28/25 09:40 02/28/25 Hgb 6.7 g/dL (12.0-15.0) L 02/28/25 09:40 02/28/25 Hct 20.0 % (37-47) L 02/28/25 09:40 02/28/25 Plt Count 255 K/mm3 (150-450) 02/28/25 09:40 02/28/25 CHEMISTRY Potassium 4.2 mmol/L (3.3-5.1) 02/28/25 09:40 02/28/25 Sodium 136 mmol/L (133-145) 02/28/25 09:40 02/28/25 Magnesium 2.5 mg/dL (1.6-2.6) 07/26/23 23:10 07/26/23 Phosphorus 3.3 mg/dL (2.5-4.9) 07/27/23 02:11 07/27/23 BUN 34 mg/dL (4-19) H 02/28/25 09:40 02/28/25 Creatinine 0.82 mg/dL (0.70-1.20) 02/28/25 09:40 02/28/25 Glucose 107 mg/dL (70-99) H 02/28/25 09:40 02/28/25 POC Glucose 79 mg/dL (74-106) 07/26/23 19:58 07/26/23 TSH 1.520 uIU/mL (0.300-4.200) 10/26/24 09:12 0412/25 COAG Pre-Assessment Diagnosis/Proposed Procedure Planned Operative Procedure(s): egd Anesthesia History Anesthesia History - field research assistant: Anesthesia History - field research assistant Hx Hospitalization Yes: 04/30/23 PASSING OUT/ 06/19/23 10:36 FALLING Any Problems With Anesthesia No 06/19/23 10:36 Cholinesterase deficiency No 06/19/23 10:36 You/Your Family Experience No 06/19/23 10:36 fever (hyperthermia) with Relationship Recent Exposure to Contagious No 06/19/23 10:36 Disease Does patient have nerve No 06/19/23 10:36 stimulator Patient instructed to have device shut off --Does patient have Pacemaker No 02/28/25 12:40 or ICD? When Was Last Pacemaker Check QUESTION #4 FULL TEXT: You/Your Family Experience fever (hyperthermia) with Anesthesia Last Oral Intake Last Oral intake: Last Oral Intake NPO since 19:30 02/28/25 12:40 Meds taken in AM with sips of Yes 02/28/25 12:40 water? Meds patient instructed to protonix @0800 02/28/25 12:40 take am of surgery carafate@ 0800 PONV PONV - field research assistant: PONV - field research assistant Female HX of Motion Sickness HX of N/V After Surgery Non-Smoker Duration of Surgery greater than 60 minutes Number of Risk Factors PONV Score Height & Weight Height & Weight: Anesthesia: Height & Weight Height 5 ft 3 in 02/28/25 12:40 Weight: 58.06 kg 02/28/25 12:40 Body Mass Index (BMI) 22.6 02/28/25 12:40 Respiratory Assessment Respiratory Assessment - field research assistant: Respiratory Tract Infection Hx - field research assistant Hx Respiratory Tract Infection No 06/19/23 10:36 STOP Sleep Apnea STOP Sleep Apnea - field research assistant: STOP Sleep Apnea - field research assistant Hx Hypertension Yes 02/28/25 12:09 Hx Sleep Apnea No 02/28/25 12:09 CPAP BIPAP Do you snore loudly (louder No 02/28/25 12:09 than talking or can be heard Do you often feel tired/ No 02/28/25 12:09 fatigued/ sleepy during daytime? Has anyone observed you stop No 02/28/25 12:09 breathing during sleep? STOP Results Negative 02/28/25 12:09 QUESTION #5 FULL TEXT : Do you snore loudly (louder than talking or can be heard through closed doors)? Tobacco Use History Tobacco Use History - field research assistant: Tobacco Use History - field research assistant Tobacco Use Smoking Status Former smoker 02/28/25 12:09 Hx Tobacco Use Yes 02/28/25 12:09 Years Smoking Packs Smoked per Day Smoking Cessation Date was Yes - quit smoking within 15 02/28/25 12:09 within the last 15 years years Hx Smoking Cessation Date 10/05/21 02/28/25 12:09 Hx Smoking Cessation Counseling Hematologic Medial History Hematologic Hx - field research assistant: Hematologic Medical Hx - bar back Hx of Blood Transfusion Yes 02/28/25 12:09 Hx of Transfusion in last 3 Yes 02/28/25 12:09 Months Date of Last Transfusion (if 02/25/25 02/28/25 12:09 within last 3 months) Ever experience any problems No 02/28/25 12:09 with transfusion(s)? Specify any problems Hx of Preganancy in last 3 No 02/28/25 12:09 Months Nurse Filling Out Transfusion TWOLF 02/28/25 12:09 & Questions: Date: 02/28/25 02/28/25 12:09 Time: 12:10 02/28/25 12:09 Patient unable to answer at this time (ie. 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 Hx Now Gestational Age (in weeks): EDC: Hx Hx Para Hx Section SAB No 06/19/23 10:36 Active Medications Active Medications: Current Medications Generic Name Dose Route Start Last Admin Trade Name Freq PRN Reason Stop Dose Admin Acetaminophen 650 mg 02/28/25 12:08 Acetaminophen 325 Mg Tablet PO Q6H PRN PRN Pain 1-10 Or Fever>100.7 Atorvastatin Calcium 40 mg 02/28/25 22:00 Atorvastatin Calcium 40 Mg Tablet PO QHS [facility] Calcium Carbonate 500 mg 03/01/25 08:00 Calcium (Elemental) 500 Mg Tablet PO DAILYCM [facility] Cholecalciferol 25 mcg 03/01/25 10:00 Cholecalciferol (Vit D3) 25 Mcg Tablet (1,000 Units) PO DAILY LYNDSEY Cyclobenzaprine HCl 10 mg 02/28/25 12:08 Cyclobenzaprine Hcl 10 Mg Tablet PO DAILY PRN muscle spasm Ferrous Sulfate 325 mg 03/01/25 08:00 Ferrous Sulfate 325 Mg Tablet PO QODAY@0800 LYNDSEY Pantoprazole Sodium 80 mg/ 100 mls @ 10 mls/hr 02/28/25 13:00 Sodium Chloride CONT INF Q10H LYNDSEY Sodium Chloride 250 mls @ 15 mls/hr 02/28/25 12:15 IV .[id number] PRN Saline Flush Sodium Chloride 250 mls @ 15 mls/hr 02/28/25 12:15 IV .[id number] PRN Additional IVPB Infusion Magnesium Chloride 128 mg 03/01/25 10:00 Magnesium Chloride 64 Mg Delay Rel.Tablet PO DAILY LYNDSEY Ondansetron HCl 4 mg 02/28/25 12:08 Ondansetron 4 Mg/2 Ml Vial IV Q8H PRN PRN NAUSEA/VOMITING Senna/Docusate Sodium 2 tablet 02/28/25 12:08 Senna/Docusate Sodium 1 Tablet PO BID PRN PRN Constipation Sodium Chloride 10 - 40 ml 02/28/25 12:15 0.9% Saline Lock 10 Ml Syringe IV UD PRN SALINE FLUSH PFSH Medical History AAA (abdominal aortic aneurysm) Palpitations Dyslipidemia Raynauds phenomenon Coronary artery disease Hypokalemia Abnormal findings diagnostic imaging of heart and coronary circulation (06/07/23) Atherosclerotic heart disease of [place] coronary artery without angina pectoris (06/07/23) 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) Anxiety Shortness of breath on exertion History of echocardiogram History of stress test Cardiology follow-up encounter History of irregular heartbeat Guaiac positive stools Abnormal ECG Anemia Blood in stool Pseudoaneurysm of aorta Fatigue Syncope Vitamin D deficiency Major depressive disorder, recurrent episode, in full remission Lightheadedness Numbness and tingling in both hands Bradycardia Wears contact lenses Post-menopausal Excessive bleeding Easy bruising Restless legs Back pain History of IBS Former smoker Encounter for screening for malignant neoplasm of colon Muscle spasm Hyperlipidemia Hypertension Home Medications ?Medication ?Instructions ?Recorded ?Last Taken ?Type magnesium oxide 400 mg PO DAILY 11/12/21 Unk nown History cyclobenzaprine 10 mg tablet 10 mg PO DAILY PRN muscle spasm 05/11/23 Unknown History atorvastatin 40 mg tablet 40 mg PO QHS #30 tabs Unknown Rx cholecalciferol (vitamin D3) 25 25 mcg PO DAILY Unknown History mcg (1,000 unit) tablet (Vitamin D3) aspirin 81 mg tablet,delayed 81 mg PO DAILY 06/12/23 1 08/16/22 History release (Adult Aspirin Regimen) calcium carbonate (Calcium 600) 600 mg PO DAILY Unknown History ferrous sulfate 325 mg (65 mg 325 mg PO Q OTHER DAY Unknown History iron) tablet (FeroSul) losartan 50 mg tablet 50 mg PO DAILY #90 tabs 06/03 01/23 Unknown Rx Held on 02/28/25. Instructions: per t report amlodipine 5 mg tablet 5 mg PO DAILY #90 tabs 02/19 Unknown Rx Held on 02/28/25. Instructions: per pt preport pantoprazole 40 mg tablet,delayed 40 mg PO BID 5 Unknown History release sucralfate 1 gram tablet 1 g PO BID 02/28/25 Unknown History vibegron 75 mg tablet (Gemtesa) 75 mg PO DAILY 5 Unknown History Allergy/AdvReac Type Severity Reaction Status Date / Time No Known Allergies Allergy Verified 02/28/25 09:22 Family History Mother Hypertension Cancer Arthritis CVA (cerebral vascular accident) Stomach ulcer Father Cancer bladder Grandmother Cancer Uncle Prostate carcinoma Surgical History Stented coronary artery (06/15/23) Hx of hysterectomy Hx of colonoscopy Social History household members: spouse Smoking Status: Former smoker alcohol intake: former year quit: 1990 substance use type: does not use caffeine: Yes Type: carbonated beverages Number of servings: 1 Review of Systems (Anesthesia) ROS Narrative System reviewed and no additional complaints, except as documented. 02/28/25 1305 <Electronically signed by Zelalem Sifuentes MD> Date _ Zelalem Sifuentes MD Cosigner Signature: Date CC: ~ Signed [facility] Work Phone: [phone] 273-563108-29-2025 Discharge summary Author Jailene Pierre [facility] Note Date/Time February 28, 2025 11 :16am [facility] Medical Records Department [address] [place] [address] Emergency Department Summary 02/28/25 MR#: [id number] Acct: [id number] Name: AMIE RYAN Rep #:[id number] : 1960 64 From: Jailene Pierre MD PCP: Dr. Renato Bonilla MD Status:REG E R Location: ED HPI History of Present Illness Chief Complaint: Abn Labs Narrative Narrative: Patient is a 64-year-old female presenting to the emergency department for generalized fatigue, mild shortness of breath and abnormal outpatient hemoglobin. She is not on OAC. Patient states that on Monday she was having similar symptoms, she went to [facility] emergency department where her hemoglobinwas tested and it dropped from 11 to 7. She got 1 unit of PRBC and was observedovernight. There was no EGD or colonoscopy done. Reportedly at that time she had a fecal occult that was positive. She states that over the past few days she has continued to notice melanotic stool as well as generalized fatigue. Shestates that she called her primary care doctor today while she was at work and he told her to come be evaluated. She denies any abdominal pain, nausea, vomiting, diarrhea. States that she does take iron supplements 3 times a week but her stool looks different than normal. Reports there is no bright red bloodper rectum. Reports her last EGD and colonoscopy were in [address] Bennett. Patient reports that she has never received a blood transfusion before this and has never had a GI bleed. [facility] Medical History Coronary artery disease Raynauds phenomenon Dyslipidemia Palpitations Hypokalemia Abnormal findings diagnostic imaging of heart and coronary circulation (06/07/23) Atherosclerotic heart disease of [place] coronary artery without angina pectoris (06/07/23) 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) Anxiety Shortness of breath on exertion History of echocardiogram History of stress test Cardiology follow-up encounter History of irregular heartbeat Guaiac positive stools Abnormal ECG Anemia Blood in stool Pseudoaneurysm of aorta Fatigue Syncope Vitamin D deficiency Major depressive disorder, recurrent episode, in full remission Lightheadedness Numbness and tingling in both hands Bradycardia Wears contact lenses Post-menopausal Excessive bleeding Easy bruising Restless legs Back pain History of IBS Former smoker Encounter for screening for malignant neoplasm of colon Muscle spasm Hyperlipidemia Hypertension Home Medications ?Medication ?Instructions ?Recorded ?Last Taken ?Type magnesium oxide 400 mg PO DAILY 11/12/21 Unk nown History cyclobenzaprine 10 mg tablet 10 mg PO DAILY PRN muscle spasm 05/11/23 Unknown History atorvastatin 40 mg tablet 40 mg PO QHS #30 tabs Unknown Rx cholecalciferol (vitamin D3) 25 25 mcg PO DAILY Unknown History mcg (1,000 unit) tablet (Vitamin D3) aspirin 81 mg tablet,delayed 81 mg PO DAILY 06/12/23 1 08/16/22 History release (Adult Aspirin Regimen) calcium carbonate (Calcium 600) 600 mg PO DAILY Unknown History ferrous sulfate 325 mg (65 mg 325 mg PO Q OTHER DAY Unknown History iron) tablet (FeroSul) losartan 50 mg tablet 50 mg PO DAILY #90 tabs 06/03 01/23 Unknown Rx Held on 02/28/25. Instructions: per t report amlodipine 5 mg tablet 5 mg PO DAILY #90 tabs 02/19 Unknown Rx Held on 02/28/25. Instructions: per pt preport Allergy/AdvReac Type Severity Reaction Status Date / Time No Known Allergies Allergy Verified 02/28/25 09:22 Family History Mother Hypertension Cancer Arthritis CVA (cerebral vascular accident) Stomach ulcer Father Cancer bladder Grandmother Cancer Uncle Prostate carcinoma Surgical History Stented coronary artery (06/15/23) Hx of hysterectomy Hx of colonoscopy Social History household members: spouse Smoking Status: Former smoker alcohol intake: former year quit: 1990 substance use type: does not use caffeine: Yes Type: carbonated beverages Number of servings: 1 ROS ROS ED ROS Narrative see HPI EXAM Physical Exam Narrative Exam Narrative: Vital signs: Reviewed General: Alert and oriented. No acute distress HEENT: Head is normocephalic and atraumatic, sinuses nontender, pupils equal round and reactive. Nares are patent. Oropharynx and throat exams normal. Neck: Supple without lymphadenopathy nontender Cardiovascular: Regular rate and rhythm, no murmurs. No rubs or gallops. Normal S1 and S2 Respiratory: Clear to auscultation bilaterally. No wheezes, rales, rhonchi Abdominal: Soft and nontender. Normal bowel sounds. No guarding or rebound. Nonsurgical abdomen Extremities: No tenderness. No bruising. Normal range of motion. Normal sensation. Skin: No rash or redness. Neurological: Cranial nerves II through XII are grossly intact. Normal strengthand sensation. Normal cerebellar function The rest of the physical exam is unremarkable Const Vital Signs: 02/28/25 09:22 02/28/25 09:43 Temperature 97.6 F L Temperature Source Temporal Pulse Rate 83 Respiratory Rate 14 Respiratory Pattern Normal Blood Pressure 126/70 H Blood Pressure Mean 88 Pulse Ox 98 Oxygen Delivery Method Room Air MDM MDM MDM Narrative Medical decision making narrative: Patient is a 64-year-old female presenting to the emergency department for fatigue, shortness of breath and dropping hemoglobin. Patient was seen and examined. Vitals are stable. Patient resting bed comfortably in no acute distress. EKG with normal sinus rhythm. No ischemic changes. No dysrhythmia. CBC with no leukocytosis and hemoglobin of 6.7, dropped from 8.2 yesterday and from 11.5 on 02/24/25. CMP with elevated BUN of 34 consistent with her upper GI bleed. Patient is saying that she has melanotic stool and had a Hemoccult done at outside facility and I do not think it is necessary to repeat this here. She ishaving no abdominal pain and no brisk bleeding I do not think it is necessary toobtain CT imaging. Patient consented for 1 unit PRBC. Spoke to RIVKA Potter to have an EGD done. He states will likely do this morning/afternoon. Given this is the second time patient has been seen in the ED in the past week for GI bleed and her Hgb continues to drop, she will be admitted for symptomatic anemiaand EGD. Will admit to hospitalist. Clinical impression: UGIB Acute on chronic anemia Elevated BUN History & Record Review Discussion w/independent historian: Patient Additional record(s) reviewed:: Prior outpatient record Lab Data Attestation: I reviewed the patient's lab results. Labs: Laboratory Results - last 24 hr 02/28/25 09:40 WBC 5.7 RBC 2.05 L Hgb 6.7 L Hct 20.0 L MCV 97.6 MCH 32.7 H MCHC 33.5 RDW Std Deviation 48.3 H RDW Coeff of Yulia 13.6 Plt Count 255 MPV 8.8 Immature Gran % (Auto) 1.200 H Neut % (Auto) 56.9 Lymph % (Auto) 27.7 Eaton % (Auto) 10.5 H Eos % (Auto) 3.3 Baso % (Auto) 0.4 Absolute Neuts (auto) 3.3 Absolute Lymphs (auto) 1.58 Nucleated RBC % 0.5 Sodium 136 Potassium 4.2 Chloride 102 Carbon Dioxide 24.3 Anion Gap 9 BUN 34 H Creatinine 0.82 Estim Creat Clear Calc 58.84 Est GFR (MDRD) Non-Af 81 BUN/Creatinine Ratio 41.6 H Glucose 107 H Calcium 8.6 Total Bilirubin 0.20 AST 22 ALT 14 Alkaline Phosphatase 58 Total Protein 5.9 Albumin 3.9 Globulin 2.0 L Albumin/Globulin Ratio 1.9 Discharge Plan Triage Chief Complaint: Abn Labs ED Provider: Jailene Pierre Dx/Rx/DC Orders Prescriptions: No Action magnesium oxide 400 mg magnesium tablet 400 mg PO DAILY cyclobenzaprine 10 mg tablet 10 mg PO DAILY PRN (Reason: muscle spasm) atorvastatin 40 mg tablet 40 mg PO QHS Qty: 30 2RF calcium carbonate [Calcium 600] 600 mg calcium (1,500 mg) tablet 600 mg PO DAILY ferrous sulfate [FeroSul] 325 mg (65 mg iron) tablet 325 mg PO Q OTHER DAY cholecalciferol (vitamin D3) [Vitamin D3] 25 mcg (1,000 unit) tablet 25 mcg PO DAILY aspirin [Adult Aspirin Regimen] 81 mg tablet,delayed release (DR/EC) 81 mg PO DAILY losartan 50 mg tablet 50 mg PO DAILY Qty: 90 3RF amlodipine 5 mg tablet 5 mg PO DAILY Qty: 90 3RF Primary Care Provider: Renato Bonilla Chi Referrals: Renato Bonilla Chi, MD [Primary Care Provider] - Print Language: Burmese What to do if you have Problems For any increased pain, shortness of breath, bleeding, nausea or vomiting, chestpain, or any unexpected problems, contact your Primary Care Provider. Call [facility] ([phone]) or report to the closest Emergency Room. Call 911 if necessary. 02/28/25 1116 <Electronically signed by Jailene Pierre MD> Cosigner Signature (if applicable): CC: Dr. Renato Bonilla MD ~ Signed [facility] Work Phone: [phone] 525-712308-29-2025 Consult note [facility] Medical Records Department [address] [place] [address] Consultation - GI 02/28/25 1301 MR#: [id number] Acct: [id number] Name: AMIE RYAN Rep #:[id number] : 1960 64 From: José Luis Leach DO PCP: Dr. Renato Bonilla MD Status:ADM I N Location: [place] [address] HPI Consult Data Date of Consult: 02/28/25 HPI Narrative Reason for Consultation: Anemia HPI Narrative: AMIE RYAN, is a 64-year-old female presenting to the emergency department for generalized fatigue, mild shortness of breath and abnormal outpatient hemoglobin. 64-year-old female with a history of coronary artery disease and peripheral artery disease reports increasing fatigue over the past several months. She notes she has less energy for her usual activities, and finds herself more short of breath with mild exertion. Symptoms are progressive. Patient denies overt signs of bleeding, such as black, tarry stools, or excessive bruising. Patient states that on Monday she was having similar symptoms, she went to [facility] emergency department where her hemoglobin was tested and it dropped from 11 to 7. She got 1 unit of PRBC and was observed overnight. She does report that she was fecal occult that was positive. She states that overthe past few days she has continued to notice melanotic stool as well as generalizedfatigue. She Denies tobacco or illicit drug use. Occasional alcohol use. 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) Anxiety Shortness of breath on exertion History of echocardiogram History of stress test Cardiology follow-up encounter History of irregular heartbeat Guaiac positive stools Abnormal ECG Anemia Blood in stool Pseudoaneurysm of aorta Fatigue Syncope Vitamin D deficiency Major depressive disorder, recurrent episode, in full remission Lightheadedness Numbness and tingling in both hands Bradycardia Wears contact lenses Post-menopausal Excessive bleeding Easy bruising Restless legs Back pain History of IBS Former smoker Encounter for screening for malignant neoplasm of colon Muscle spasm Hyperlipidemia Hypertension Home Medications ?Medication ?Instructions ?Recorded ?Last Taken ?Type magnesium oxide 400 mg PO DAILY 11/12/21 Unk nown History cyclobenzaprine 10 mg tablet 10 mg PO DAILY PRN muscle spasm 05/11/23 Unknown History atorvastatin 40 mg tablet 40 mg PO QHS #30 tabs Unknown Rx cholecalciferol (vitamin D3) 25 25 mcg PO DAILY Unknown History mcg (1,000 unit) tablet (Vitamin D3) aspirin 81 mg tablet,delayed 81 mg PO DAILY 06/12/23 1 08/16/22 History release (Adult Aspirin Regimen) calcium carbonate (Calcium 600) 600 mg PO DAILY Unknown History ferrous sulfate 325 mg (65 mg 325 mg PO Q OTHER DAY Unknown History iron) tablet (FeroSul) losartan 50 mg tablet 50 mg PO DAILY #90 tabs 06/03 01/23 Unknown Rx Held on 02/28/25. Instructions: per t report amlodipine 5 mg tablet 5 mg PO DAILY #90 tabs 02/19 Unknown Rx Held on 02/28/25. Instructions: per pt preport pantoprazole 40 mg tablet,delayed 40 mg PO BID 5 Unknown History release sucralfate 1 gram tablet 1 g PO BID 02/28/25 Unknown History vibegron 75 mg tablet (Gemtesa) 75 mg PO DAILY 5 Unknown History Allergy/AdvReac Type Severity Reaction Status Date / Time No Known Allergies Allergy Verified 02/28/25 09:22 Family History Mother Hypertension Cancer Arthritis CVA (cerebral vascular accident) Stomach ulcer Father Cancer bladder Grandmother Cancer Uncle Prostate carcinoma Surgical History Stented coronary artery (06/15/23) Hx of hysterectomy Hx of colonoscopy Social History household members: spouse Smoking Status: Former smoker alcohol intake: former year quit: 1990 substance use type: does not use caffeine: Yes Type: carbonated beverages Number of servings: 1 ROS Constitutional Constitutional: Denies fatigue, fever(s), poor appetite, weight gain or weight loss Gastrointestinal Gastrointestinal: Denies belching, bloating, change in bowel habits, change in stool character, chewing difficulty, coffee ground emesis, constipation, cramping, diarrhea, dyspepsia, dysphagia, earlysatiety, excessive flatus, fecalincontinence, heartburn, hematemesis, hematochezia, hemorrhoids, loose stools, melena, nausea, odynophagia, rectal bleeding, tenesmus, vomiting or weight changes Physical Exam Const alert, oriented x3, no apparent distress and healthy appearing General Appearance: cooperative GI normal to inspection, nondistended, normoactive bowel sounds, soft to palpation,non-tender and non-distended Percussion: normal to percussion Rectal Exam: deferred Lab / Micro Data 02/28/25 09:40 02/28/25 09:40 Labs: Laboratory Results - last 24 hr 02/28/25 09:40: WBC 5.7, RBC 2.05 L, Hgb 6.7 L, Hct 20.0 L, MCV 97.6, MCH 32.7 H, MCHC 33.5, RDW Std Deviation 48.3 H, RDW Coeff of Yulia 13.6, Plt Count 255, MPV8.8, Immature Gran % (Auto) 1.200 H, Neut % (Auto) 56.9, Lymph % (Auto) 27.7, Eaton % (Auto) 10.5 H, Eos % (Auto) 3.3, Baso % (Auto) 0.4, Absolute Neuts (auto) 3.3, Absolute Lymphs (auto) 1.58, Nucleated RBC % 0.5, Sodium 136, Potassium 4.2, Chloride 102, Carbon Dioxide 24.3, Anion Gap 9, BUN 34 H, Creatinine 0.82, Estim Creat Clear Calc 58.84, Est GFR (MDRD) Non-Af 81, BUN/Creatinine Ratio 41.6 H, Glucose 107 H, Calcium 8.6, Total Bilirubin 0.20, AST 22, ALT 14, Alkaline Phosphatase 58, Total Protein 5.9, Albumin 3.9, Globulin 2.0 L, Albumin/Globulin Ratio 1.9 02/28/25 10:30: Blood Type O POSITIVE, Antibody Screen NEGATIVE, Crossmatch See Detail 02/28/25 11:10: Urine Color Straw, Urine Clarity Clear, Urine pH 6.0, Ur Specific [place] 1.005, Urine Protein Negative, Urine Glucose (UA) Normal, UrineKetones Negative, Urine Occult Blood Negative,Urine Nitrite Negative, Urine Bilirubin Negative, Urine Urobilinogen Normal, Ur Leukocyte Esterase Negative, Urine RBC 0-5 SEEN, Urine WBC 0 SEEN, Ur Squamous Epith Cells 0-5 SEEN, Urine Bacteria 0 SEEN, Urine Mucus 0 SEEN Assessment & Plan Assessment/Plan (1) Acute anemia: (2) GI bleed: PLAN: Anemia of unknown etiology:?Patient is a 64-year-old female with significant fatigue and a severe drop in hemoglobin from 12 to 6.6 g/dL. This finding warrants immediate and thorough investigation. Anemia is common in patients withCAD and PAD and is an independent predictor of worse cardiovascular o utcomes. The degree of anemia can worsen myocardial ischemia, especially with the patient's existing cardiovascular disease. * Differential Diagnosis for Severe Anemia: * Chronic Gastrointestinal Bleeding:?The most likely etiology for iron- deficiency anemia in an elderly patient is chronic GI blood loss, which can be exacerbated by long-term ASA use. * Anemia of Chronic Disease/Inflammation:?Chronic inflammation from her underlying cardiovascular disease can contribute to anemia by disrupting iron metabolism and blunting the bone marrow's response to erythropoietin. * Chronic Kidney Disease * ?A decline in kidney function with age can decrease erythropoietin production, leading to anemia. * Nutritional Deficiencies:?Deficiencies in iron, Vitamin B12, or folate can cause anemia. * Hematologic Malignancy (e.g., Myelodysplastic Syndrome):?While less common, this should be considered in the workup of unexplained anemia in an elderly patient.? * * Diagnostics: * Initial labs:?Order a full iron panel (serum iron, ferritin, total iron- binding capacity, transferrin saturation), a Reticulocyte Count, and vitamin B12 and folate levels. * Further workup for GI bleeding:?Strongly consider fecal occult blood testing and endoscopic evaluation (upper endoscopy +/- colonoscopy), given the long-term ASA use and severe anemia. * Investigate other etiologies:?If initial workup is non-revealing, further studies may include evaluating for renal function (serum creatinine, estimated GFR) and inflammatory markers. * Therapeutic Interventions: * Blood Transfusion:?Given the hemoglobin of 6.6 g/dL, a blood transfusion is likely indicated to manage symptoms of fatigue and prevent worsening cardiac ischemia. Transfusion thresholds for patients with underlying cardiac disease need careful consideration. * Medication Management:?Review ASA therapy. While critical for her CAD/PAD, it's a likely contributing factor to potential GI bleeding. Discuss risks/benefits and consider alternatives or adjuncts (e.g., proton pump inhibitor) with the patient after diagnostic workup. * Supplementation:?Initiate iron and/or vitamin supplementation based on lab results. Charges/Coding Visit Charges Inpatient E&M: 76792 Init Hosp L3 02/28/25 1305 Cosigner Signature (if applicable): CC: Dr. Renato Bonilla MD~ Signed [facility]08-29-2025 Consult note [place] Medical Records Department [address] [place] [address] Pre-Anesthesia Evaluation 02/28/25 1259 MR#: [id number] Acct: [id number] Name: AMIE RYAN Rep #:[id number] : 1960 64 From: Zelalem Sifuentes MD PCP: Dr. Renato Bonilla MD Status:ADM I N Y Race: C Location: [place] [address] ASA Classification* ASA Classification ASA Classification: 3 and E Assessment & Plan Anesthesia* Anesthesia Assessment Anesthesia Assessment: Discussed sedation and/or anesthesia options, risks, benefits, and alternatives with patient/parents/legal guardian/POA. Questions invited. The patient/parents/legal guardian/POA seems to understand and agrees to proceedwith anesthesia plan. Reviewed the physical assessment, medical history, allergy history and patient home medications list prior to surgery/procedure/anesthetic and documented any changes. Performed airway and anesthesia risk assessments. Anesthesia Type Anesthesia Type: MAC (patient known CAD/ASHD with hgb 6.7, denies any CP. Oneunit PRBC ready, transfuse LINDA. Will check EKG and run HS troponin from earlier blood draw. if all normal/stable can proceed with egd.) Anesthesia Focused Assessment* Temperature: 97.5 F Pulse Rate: 70 Blood Pressure: 120/72 Respiratory Rate: 16 Pulse Ox: 100 Airway Assessment Mouth opens: >3 cm Mallampati Score: II Labs Anesthesia Preop lab: CBC WBC 5.7 K/mm3 (4.4-11.0) 02/28/25 09:40 02/28/25 RBC 2.05 M/mm3 (4.2-5.4) L 02/28/25 09:40 02/28/25 Hgb 6.7 g/dL (12.0-15.0) L 02/28/25 09:40 02/28/25 Hct 20.0 % (37-47) L 02/28/25 09:40 02/28/25 Plt Count 255 K/mm3 (150-450) 02/28/25 09:40 02/28/25 CHEMISTRY Potassium 4.2 mmol/L (3.3-5.1) 02/28/25 09:40 02/28/25 Sodium 136 mmol/L (133-145) 02/28/25 09:40 02/28/25 Magnesium 2.5 mg/dL (1.6-2.6) 07/26/23 23:10 07/26/23 Phosphorus 3.3 mg/dL (2.5-4.9) 07/27/23 02:11 07/27/23 BUN 34 mg/dL (4-19) H 02/28/25 09:40 02/28/25 Creatinine 0.82 mg/dL (0.70-1.20) 02/28/25 09:40 02/28/25 Glucose 107 mg/dL (70-99) H 02/28/25 09:40 02/28/25 POC Glucose 79 mg/dL (74-106) 07/26/23 19:58 07/26/23 TSH 1.520 uIU/mL (0.300-4.200) 10/26/24 09:12 10/02 12/25 COAG Pre-Assessment Diagnosis/Proposed Procedure Planned Operative Procedure(s): egd Anesthesia History Anesthesia History - field research assistant: Anesthesia History - field research assistant Hx Hospitalization Yes: 04/30/23 PASSING OUT/ 06/19/23 10:36 FALLING Any Problems With Anesthesia No 06/19/23 10:36 Cholinesterase deficiency No 06/19/23 10:36 You/Your Family Experience No 06/19/23 10:36 fever (hyperthermia) with Relationship Recent Exposure to Contagious No 06/19/23 10:36 Disease Does patient have nerve No 06/19/23 10:36 stimulator Patient instructed to have device shut off --Does patient have Pacemaker No 02/28/25 12:40 or ICD? When Was Last Pacemaker Check QUESTION #4 FULL TEXT: You/Your Family Experience fever (hyperthermia) with Anesthesia Last Oral Intake Last Oral intake: Last Oral Intake NPO since 19:30 02/28/25 12:40 Meds taken in AM with sips of Yes 02/28/25 12:40 water? Meds patient instructed to protonix @0800 02/28/25 12:40 take am of surgery carafate@ 0800 PONV PONV - field research assistant: PONV - field research assistant Female HX of Motion Sickness HX of N/V After Surgery Non-Smoker Duration of Surgery greater than 60 minutes Number of Risk Factors PONV Score Height & Weight Height & Weight: Anesthesia: Height & Weight Height 5 ft 3 in 02/28/25 12:40 Weight: 58.06 kg 02/28/25 12:40 Body Mass Index (BMI) 22.6 02/28/25 12:40 Respiratory Assessment Respiratory Assessment - field research assistant: Respiratory Tract Infection Hx - field research assistant Hx Respiratory Tract Infection No 06/19/23 10:36 STOP Sleep Apnea STOP Sleep Apnea - field research assistant: STOP Sleep Apnea - field research assistant Hx Hypertension Yes 02/28/25 12:09 Hx Sleep Apnea No 02/28/25 12:09 CPAP BIPAP Do you snore loudly (louder No 02/28/25 12:09 than talking or can be heard Do you often feel tired/ No 02/28/25 12:09 fatigued/ sleepy during daytime? Has anyone observed you stop No 02/28/25 12:09 breathing during sleep? STOP Results Negative 02/28/25 12:09 QUESTION #5 FULL TEXT : Do you snore loudly (louder than talking or can be heard through closeddoors)? Tobacco Use History Tobacco Use History - field research assistant: Tobacco Use History - field research assistant Tobacco Use Smoking Status Former smoker 02/28/25 12:09 Hx Tobacco Use Yes 02/28/25 12:09 Years Smoking Packs Smoked per Day Smoking Cessation Date was Yes - quit smoking within 15 02/28/25 12:09 within the last 15 years years Hx Smoking Cessation Date 10/05/21 02/28/25 12:09 Hx Smoking Cessation Counseling Hematologic Medial History Hematologic Hx - field research assistant: Hematologic Medical Hx - bar back Hx of Blood Transfusion Yes 02/28/25 12:09 Hx of Transfusion in last 3 Yes 02/28/25 12:09 Months Date of Last Transfusion (if 02/25/25 02/28/25 12:09 within last 3 months) Ever experience any problems No 02/28/25 12:09 with transfusion(s)? Specify any problems Hx of Preganancy in last 3 No 02/28/25 12:09 Months Nurse Filling Out Transfusion TWOLF 02/28/25 12:09 & Questions: Date: 02/28/25 02/28/25 12:09 Time: 12:10 02/28/25 12:09 Patient unable to answer at this time (ie. 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 Hx Now Gestational Age (in weeks): EDC: Hx Hx Para Hx Section SAB No 06/19/23 10:36 Active Medications Active Medications: Current Medications Generic Name Dose Route Start Last Admin Trade Name Freq PRN Reason Stop Dose Admin Acetaminophen 650 mg 02/28/25 12:08 Acetaminophen 325 Mg Tablet PO Q6H PRN PRN Pain 1-10 Or Fever>100.7 Atorvastatin Calcium 40 mg 02/28/25 22:00 Atorvastatin Calcium 40 Mg Tablet PO QHS [facility] Calcium Carbonate 500 mg 03/01/25 08:00 Calcium (Elemental) 500 Mg Tablet PO DAILYCM [facility] Cholecalciferol 25 mcg 03/01/25 10:00 Cholecalciferol (Vit D3) 25 Mcg Tablet (1,000 Units) PO DAILY LYNDSEY Cyclobenzaprine HCl 10 mg 02/28/25 12:08 Cyclobenzaprine Hcl 10 Mg Tablet PO DAILY PRN muscle spasm Ferrous Sulfate 325 mg 03/01/25 08:00 Ferrous Sulfate 325 Mg Tablet PO QODAY@0800 [facility] Pantoprazole Sodium 80 mg/ 100 mls @ 10 mls/hr 02/28/25 13:00 Sodium Chloride CONT INF Q10H LYNDSEY Sodium Chloride 250 mls @ 15 mls/hr 02/28/25 12:15 IV .[id number] PRN Saline Flush Sodium Chloride 250 mls @ 15 mls/hr 02/28/25 12:15 IV .[id number] PRN Additional IVPB Infusion Magnesium Chloride 128 mg 03/01/25 10:00 Magnesium Chloride 64 Mg Delay Rel.Tablet PO DAILY LYNDSEY Ondansetron HCl 4 mg 02/28/25 12:08 Ondansetron 4 Mg/2 Ml Vial IV Q8H PRN PRN NAUSEA/VOMITING Senna/Docusate Sodium 2 tablet 02/28/25 12:08 Senna/Docusate Sodium 1 Tablet PO BID PRN PRN Constipation Sodium Chloride 10 - 40 ml 02/28/25 12:15 0.9% Saline Lock 10 Ml Syringe IV UD PRN SALINE FLUSH PFSH Medical History AAA (abdominal aortic aneurysm) Palpitations Dyslipidemia Raynauds phenomenon Coronary artery disease Hypokalemia Abnormal findings diagnostic imaging of heart and coronary circulation (06/07/23) Atherosclerotic heart disease of [place] coronary artery without angina pectoris (06/07/23) 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) Anxiety Shortness of breath on exertion History of echocardiogram History of stress test Cardiology follow-up encounter History of irregular heartbeat Guaiac positive stools Abnormal ECG Anemia Blood in stool Pseudoaneurysm of aorta Fatigue Syncope Vitamin D deficiency Major depressive disorder, recurrent episode, in full remission Lightheadedness Numbness and tingling in both hands Bradycardia Wears contact lenses Post-menopausal Excessive bleeding Easy bruising Restless legs Back pain History of IBS Former smoker Encounter for screening for malignant neoplasm of colon Muscle spasm Hyperlipidemia Hypertension Home Medications ?Medication ?Instructions ?Recorded ?Last Taken ?Type magnesium oxide 400 mg PO DAILY 11/12/21 Unk nown History cyclobenzaprine 10 mg tablet 10 mg PO DAILY PRN muscle spasm 05/11/23 Unknown History atorvastatin 40 mg tablet 40 mg PO QHS #30 tabs Unknown Rx cholecalciferol (vitamin D3) 25 25 mcg PO DAILY Unknown History mcg (1,000 unit) tablet (Vitamin D3) aspirin 81 mg tablet,delayed 81 mg PO DAILY 06/12/23 1 08/16/22 History release (Adult Aspirin Regimen) calcium carbonate (Calcium 600) 600 mg PO DAILY Unknown History ferrous sulfate 325 mg (65 mg 325 mg PO Q OTHER DAY Unknown History iron) tablet (FeroSul) losartan 50 mg tablet 50 mg PO DAILY #90 tabs 06/03 01/23 Unknown Rx Held on 02/28/25. Instructions: per t report amlodipine 5 mg tablet 5 mg PO DAILY #90 tabs 02/19 Unknown Rx Held on 02/28/25. Instructions: per pt preport pantoprazole 40 mg tablet,delayed 40 mg PO BID 5 Unknown History release sucralfate 1 gram tablet 1 g PO BID 02/28/25 Unknown History vibegron 75 mg tablet (Gemtesa) 75 mg PO DAILY 5 Unknown History Allergy/AdvReac Type Severity Reaction Status Date / Time No Known Allergies Allergy Verified 02/28/25 09:22 Family History Mother Hypertension Cancer Arthritis CVA (cerebral vascular accident) Stomach ulcer Father Cancer bladder Grandmother Cancer Uncle Prostate carcinoma Surgical History Stented coronary artery (06/15/23) Hx of hysterectomy Hx of colonoscopy Social History household members: spouse Smoking Status: Former smoker alcohol intake: former year quit: 1990 substance use type: does not use caffeine: Yes Type: carbonated beverages Number of servings: 1 Review of Systems (Anesthesia) ROS Narrative System reviewed and no additional complaints, except as documented. 02/28/25 1305 > Date _ Zelalem Sifuentes MD Cosigner Signature: Date CC: ~ Signed [facility]08-29-2025 Discharge summary [facility] Medical Records Department [address] [place] [address] Emergency Department Summary 02/28/25 MR#: [id number] Acct: [id number] Name: AMIE RYAN Rep #:[id number] : 1960 64 From: Jailene Pierre MD PCP: Dr. Renato Bonilla MD Status:REG E R Location: ED HPI History of Present Illness Chief Complaint: Abn Labs Narrative Narrative: Patient is a 64-year-old female presenting to the emergency department for generalized fatigue, mild shortness of breath and abnormal outpatient hemoglobin. She is not on OAC. Patient states that on Monday she was having similar symptoms, she went to [facility] emergency department where her hemoglob inwas tested and it dropped from 11 to 7. She got 1 unit of PRBC and was observedovernight. There was no EGD or colonoscopy done. Reportedly at that time she had a fecal occult that was positive. Shestates that over the past few days she has continued to notice melanotic stool as well as generalized fatigue. Shestates that she called her primary care doctor today while she was at work and he told her to come be evaluated. She denies any abdominal pain, nausea, vomiting, diarrhea. States that she does take iron supplements 3 times a week but her stool looks different than normal. Reports there is no bright red bloodper rectum. Reports her last EGD and colonoscopy were in [address] Bennett. Patient reports that she has never received a blood transfusion before this and has never had a GI bleed. [facility] Medical History Coronary artery disease Raynauds phenomenon Dyslipidemia Palpitations Hypokalemia Abnormal findings diagnostic imaging of heart and coronary circulation (06/07/23) Atherosclerotic heart disease of [place] coronary artery without angina pectoris (06/07/23) 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) Anxiety Shortness of breath on exertion History of echocardiogram History of stress test Cardiology follow-up encounter History of irregular heartbeat Guaiac positive stools Abnormal ECG Anemia Blood in stool Pseudoaneurysm of aorta Fatigue Syncope Vitamin D deficiency Major depressive disorder, recurrent episode, in full remission Lightheadedness Numbness and tingling in both hands Bradycardia Wears contact lenses Post-menopausal Excessive bleeding Easy bruising Restless legs Back pain History of IBS Former smoker Encounter for screening for malignant neoplasm of colon Muscle spasm Hyperlipidemia Hypertension Home Medications ?Medication ?Instructions ?Recorded ?Last Taken ?Type magnesium oxide 400 mg PO DAILY 11/12/21 Unk nown History cyclobenzaprine 10 mg tablet 10 mg PO DAILY PRN muscle spasm 05/11/23 Unknown History atorvastatin 40 mg tablet 40 mg PO QHS #30 tabs Unknown Rx cholecalciferol (vitamin D3) 25 25 mcg PO DAILY Unknown History mcg (1,000 unit) tablet (Vitamin D3) aspirin 81 mg tablet,delayed 81 mg PO DAILY 06/12/23 1 08/16/22 History release (Adult Aspirin Regimen) calcium carbonate (Calcium 600) 600 mg PO DAILY Unknown History ferrous sulfate 325 mg (65 mg 325 mg PO Q OTHER DAY Unknown History iron) tablet (FeroSul) losartan 50 mg tablet 50 mg PO DAILY #90 tabs 06/03 01/23 Unknown Rx Held on 02/28/25. Instructions: per t report amlodipine 5 mg tablet 5 mg PO DAILY #90 tabs 02/19 Unknown Rx Held on 02/28/25. Instructions: per pt preport Allergy/AdvReac Type Severity Reaction Status Date / Time No Known Allergies Allergy Verified 02/28/25 09:22 Family History Mother Hypertension Cancer Arthritis CVA (cerebral vascular accident) Stomach ulcer Father Cancer bladder Grandmother Cancer Uncle Prostate carcinoma Surgical History Stented coronary artery (06/15/23) Hx of hysterectomy Hx of colonoscopy Social History household members: spouse Smoking Status: Former smoker alcohol intake: former year quit: 1990 substance use type: does not use caffeine: Yes Type: carbonated beverages Number of servings: 1 ROS ROS ED ROS Narrative see HPI EXAM Physical Exam Narrative Exam Narrative: Vital signs: Reviewed General: Alert and oriented. No acute distress HEENT: Head is normocephalic and atraumatic, sinuses nontender, pupils equal round and reactive. Nares are patent. Oropharynx and throat exams normal. Neck: Supple without lymphadenopathy nontender Cardiovascular: Regular rate and rhythm, no murmurs. No rubs or gallops. Normal S1 and S2 Respiratory: Clear to auscultation bilaterally. No wheezes, rales, rhonchi Abdominal: Soft and nontender. Normal bowel sounds. No guarding or rebound. Nonsurgical abdomen Extremities: No tenderness. No bruising. Normal range of motion. Normal sensation. Skin: No rash or redness. Neurological: Cranial nerves II through XII are grossly intact. Normal strengthand sensation. Normal cerebellar function The rest of the physical exam is unremarkable Const Vital Signs: 02/28/25 09:22 02/28/25 09:43 Temperature 97.6 F L Temperature Source Temporal Pulse Rate 83 Respiratory Rate 14 Respiratory Pattern Normal Blood Pressure 126/70 H Blood Pressure Mean 88 Pulse Ox 98 Oxygen Delivery Method Room Air MDM MDM MDM Narrative Medical decision making narrative: Patient is a 64-year-old female presenting to the emergency department for fatigue, shortness of breath and dropping hemoglobin. Patient was seen and examined. Vitals are stable. Patient resting bed comfortably in no acute distress. EKG with normal sinus rhythm. No ischemic changes. No dysrhythmia. CBC with no leukocytosis and hemoglobin of 6.7, dropped from 8.2 yesterday and from 11.5 on 02/24/25. CMP with elevated BUN of 34 consistent with her upper GI bleed. Patient is saying that she has melanotic stool and had a Hemoccult done at outside facility and I do not think it is necessary to repeat this here. She ishaving no abdominal pain and no brisk bleeding I do not think it is necessary toobtain CT imaging. Patient consented for 1 unit PRBC. Spoke to RIVKA Potter to have an EGD done. He states will likely do this morning/afternoon. Given this is the second time patient has been seen in the ED in the past week for GIbleed and her Hgb continues to drop, she will be admitted for symptomatic anemiaand EGD. Will admitto hospitalist. Clinical impression: UGIB Acute on chronic anemia Elevated BUN History & Record Review Discussion w/independent historian: Patient Additional record(s) reviewed:: Prior outpatient record Lab Data Attestation: I reviewed the patient's lab results. Labs: Laboratory Results - last 24 hr 02/28/25 09:40 WBC 5.7 RBC 2.05 L Hgb 6.7 L Hct 20.0 L MCV 97.6 MCH 32.7 H MCHC 33.5 RDW Std Deviation 48.3 H RDW Coeff of Yulia 13.6 Plt Count 255 MPV 8.8 Immature Gran % (Auto) 1.200 H Neut % (Auto) 56.9 Lymph % (Auto) 27.7 Eaton % (Auto) 10.5 H Eos % (Auto) 3.3 Baso % (Auto) 0.4 Absolute Neuts (auto) 3.3 Absolute Lymphs (auto) 1.58 Nucleated RBC % 0.5 Sodium 136 Potassium 4.2 Chloride 102 Carbon Dioxide 24.3 Anion Gap 9 BUN 34 H Creatinine 0.82 Estim Creat Clear Calc 58.84 Est GFR (MDRD) Non-Af 81 BUN/Creatinine Ratio 41.6 H Glucose 107 H Calcium 8.6 Total Bilirubin 0.20 AST 22 ALT 14 Alkaline Phosphatase 58 Total Protein 5.9 Albumin 3.9 Globulin 2.0 L Albumin/Globulin Ratio 1.9 Discharge Plan Triage Chief Complaint: Abn Labs ED Provider: Jailene Pierre Dx/Rx/DC Orders Prescriptions: No Action magnesium oxide 400 mg magnesium tablet 400 mg PO DAILY cyclobenzaprine 10 mg tablet 10 mg PO DAILY PRN (Reason: muscle spasm) atorvastatin 40 mg tablet 40 mg PO QHS Qty: 30 2RF calcium carbonate [Calcium 600] 600 mg calcium (1,500 mg) tablet 600 mg PO DAILY ferrous sulfate [FeroSul] 325 mg (65 mg iron) tablet 325 mg PO Q OTHER DAY cholecalciferol (vitamin D3) [Vitamin D3] 25 mcg (1,000 unit) tablet 25 mcg PO DAILY aspirin [Adult Aspirin Regimen] 81 mg tablet,delayed release (DR/EC) 81 mg PO DAILY losartan 50 mg tablet 50 mg PO DAILY Qty: 90 3RF amlodipine 5 mg tablet 5 mg PO DAILY Qty: 90 3RF Primary Care Provider: Renato Bonilla Chi Referrals: Renato Bonilla Chi, MD [Primary Care Provider] - Print Language: Burmese What to do if you have Problems For any increased pain, shortness of breath, bleeding, nausea or vomiting, chestpain, or any unexpected problems, contact your Primary Care Provider. Call [facility] ([phone]) or report tothe closest Emergency Room. Call 911 if necessary. 02/28/25 1116 Cosigner Signature (if applicable): CC: Dr. Renato Bonilla MD ~ Signed [facility]06-02-2025 Evaluation note* Diagnosis Onset Date Resolution Status Admit Date Dyslipidemia chronic December 02 3:22pm Hypertension chronic December 02 3:22pm Pseudoaneurysm of aorta chronic J une 2024 3:22pm Stented coronary artery June 15, 2023 chr onic December 02, 2024 3:22pm SVT (supraventricular tachycardia) chronic December 02, 2024 3:22pm Syncope chronic December 02, 2024 3:22pm [facility] Work Phone: 1(388) 927-121306-02-2025 Evaluation note* Diagnosis Onset Date Resolution Status Admit Date Dyslipidemia chronic December 02 3:22pm Hypertension chronic December 02 3:22pm Pseudoaneurysm of aorta chronic J une 2024 3:22pm Stented coronary artery June 15, 2023 chr onic December 02, 2024 3:22pm SVT (supraventricular tachycardia) chronic December 02, 2024 3:22pm Syncope chronic December 02, 2024 3:22pm Acute anemia acute February 28, 2025 11:27am GI bleed acute February 28, 2 025 11:27am [facility] Work Phone: 1(693) 133-506506-02-2025 [facility] [address] [place] [address] OFFICE VISIT Date of Service: 12/02/24 MR#: [id number] Acct: [id number] Name: AMIE RYAN Rep #: [id number] : 1960 Provider: JENNIFER Calhoun Age/Sex: 64/F [place] [facility] Status: Signed HPI HPI History of Present Illness Details: This is a 64-year-old female who presents today for a cardiovascular follow-up visit. She has a history of presyncopal episodes, SVT?she was referred to electrophysiology at [facility] but they canceled herappointment for some reason. Shehas a history of coronary artery disease with stent placement in June 2023, dyslipidemia, pseudoaneurysm of the aorta, and hypertension. From a cardiac standpoint, the patient is doing well. She denies any palpitations, chest pain, pressure or heaviness. She denies SOB, Orthopnea, and PND. She does not have bleeding issues; no blood in urine, stool, or nosebleeds.She denies any decrease in energy level, myalgias, or claudication. She does nothave edema, or sudden weight gain. She denies lightheadedness, dizziness, syncopal or nearsyncopal episodes, and headaches. Intake Vital Signs 10/21/24 15:33 12/02/24 07:02 Height 5 ft 4 in 5 ft 4 in Weight: 133 lb BMI 22.8 BP 118/68 Blood Pressure Location Lt brachial Position Sitting Respiration 18 Pulse 60 Pulse Source Monitor Pulse Oximetry (%) 98 Intake Visit Reasons: 6 W FU [employer] Supervisor Required: No Is patient in pain?: No Allergies No Known Allergies Allergy (Verified 12/02/24 15:32) Medications ?Medication ?Instructions ?Recorded ?Confirmed ?Type magnesium oxide 400 mg PO DAILY 11/12/2108/27 History cyclobenzaprine 10 mg tablet 10 mg PO DAILY PRN muscle spasm 05/11/23 12/02/24 History atorvastatin 40 mg tablet 40 mg PO QHS #30 tabs 12/02/24 Rx cholecalciferol (vitamin D3) 25 25 mcg PO DAILY 12/02/24 History mcg (1,000 unit) tablet (Vitamin D3) aspirin 81 mg tablet,delayed 81 mg PO DAILY 06/12/23 0 12/02/24 History release (Adult Aspirin Regimen) calcium carbonate (Calcium 600) 600 mg PO DAILY 12/02/24 History ferrous sulfate 325 mg (65 mg 325 mg PO Q OTHER DAY 12/02/24 History iron) tablet (FeroSul) losartan 50 mg tablet 50 mg PO DAILY #90 tabs 06/0312/02/24 Rx amlodipine 5 mg tablet 5 mg PO DAILY #30 tabs 10/2112/02/24 Rx cephalexin 250 mg capsule 250 mg PO TID 12/02/2412/02 History Ejection fraction %: 65 Have you fallen in the past year?: Yes PFSH Medical History Coronary artery disease Raynauds phenomenon Dyslipidemia Palpitations Hypokalemia Abnormal findings diagnostic imaging of heart and coronary circulation (06/07/23) Atherosclerotic heart disease of [place] coronary artery without angina pectoris (06/07/23) 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) Anxiety Shortness of breath on exertion History of echocardiogram History of stress test Cardiology follow-up encounter History of irregular heartbeat Guaiac positive stools Abnormal ECG Anemia Blood in stool Pseudoaneurysm of aorta Fatigue Syncope Vitamin D deficiency Major depressive disorder, recurrent episode, in full remission Lightheadedness Numbness and tingling in both hands Bradycardia Wears contact lenses Post-menopausal Excessive bleeding Easy bruising Restless legs Back pain History of IBS Former smoker Encounter for screening for malignant neoplasm of colon Muscle spasm Hyperlipidemia Hypertension Surgical History Stented coronary artery (06/15/23) Hx of hysterectomy Hx of colonoscopy Family History Mother Hypertension Cancer Arthritis CVA (cerebral vascular accident) Stomach ulcer Father Cancer bladder Grandmother Cancer Uncle Prostate carcinoma Social History household members: spouse Smoking Status: Former smoker alcohol intake: former year quit: 1990 substance use type: does not use caffeine: Yes Type: carbonated beverages Number of servings: 1 ROS Const Const: Negative for fatigue, weakness, headache(s) or frequent falls Eyes Eyes: Negative for blurry vision ENT ENT: Negative for headache(s), dizziness or Nosebleed/epistaxis Cardio Chest Pain: No Palpitations: No Edema: None Muscle aches with walking: None Resp Respiratory: Negative for SOB with activity, SOB at rest or SOB orthopneaundefinedSOB lying down GI GI: Negative nausea, vomiting, heartburn, bright, red blood in stools or black,tarry stools : Negative for hematuria Neuro Neuro: Negative for dizziness, lightheadedness, near syncope, syncope, frequent falls, headache(s),weakness or blurry vision Endo Endo: Negative for fatigue Cardiology Exam Const Appearance: cooperative, comfortable and no acute distress Nutritional Appearance: well nourished Orientation: alert and oriented x3 Head Head: normal to inspection Ears: hearing grossly normal bilaterally Nose: external nose normal Face and Sinus: face symmetric Eyes General: appearance normal, both eyes and all related structures Eyelids: eyelids normal Conjunctivae: conjunctivae normal Pupils: PERRL and pupil size EOM: EOM intact bilaterally Neck Neck: no JVD Carotids: Negative bruit Chest Chest inspection: normal inspection of the chest and normal respiratory effort Auscultation: Bilateral: Clear to Auscultation Cardio Palpation: normal PMI Rate: bradycardic Rhythm: regular rhythm Heart sounds: S1 normal and S2 normal GI GI: normal to inspection and soft Neuro General: patient alert, patient awake and patient oriented x3 Skin Skin: no rashes or lesions noted Extremities Pulses: Normal: Right Posterior Tibial Pulse, Left Posterior Tibial Pulse, RightRadial Pulse and Left Radial Pulse Lower Extremity Edema: None: Bilateral Psych Psychological: normal affect Supplemental Info Supplemental Information ECHOCARDIOGRAM 05/01/23: CONCLUSION 1. There is mild concentric left ventricular hypertrophy. Left ventricle is normal in size. Systolic ejection fraction 55-60% with normal wall motion. 2. There is mild mitral valve regurgitation seen. 3. Aortic valve is trileaflet. There is mild to moderate eccentric aortic valve regurgitation and no stenosis seen. 4. Aortic root dilated 3.8 cm 5. Right ventricle is normal in size and systolic function. 6. Estimated right ventricular systolic pressure is 29 mmHg. STRESS TEST 05/02/23: EKG DATA EKG at baseline: showed sinus rhythm at 70 BPM. Anteroseptal infarct. There is aT-wave inversion seen in the lateral leads. EKG with stress: showed sinus tachycardia at 144 BPM. Stress EKG is nondiagnostic due to abnormal baseline EKG. CONCLUSION 1. Patient complain of non limiting chest pain with stress. Stress test was ended due to fatigue. 2. Patient had appropriate heart rate and blood pressure response with stress. 3. Patient was able to achieve average workload capacity. 4. Stress EKG is nondiagnostic due to abnormal baseline EKG. 5. Nuclear images will be reported separately. CONCLUSION 1. Nuclear stress test showed no conclusive evidence of reversible ischemia or infarct. 2. Calculated ejection fraction is 63% with normal wall motion. 3. TID ratio is normal. CT Abdomen/Pelvis 04/30/23: CONCLUSION 1. 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 2. There is no evidence of acute hemorrhage. 3. Moderate stool retention. CAROTID FLOW STUDY 05/01/23: CONCLUSION 1. Mild mixed and smooth plaque is present. 2. There is no evidence of hemodynamically significant stenosis. CARDIAC CATHETERIZATION 06/15/23: CONCLUSIONS CAD as described. Successful MARIYA to mid RCA. CORONARY ANGIOGRAPHY DOMINANCE: Right Dominant LEFT MAIN: Mild luminal irregularities LEFT ANTERIOR DESCENDING ARTERY: Mild luminal irregularities CIRCUMFLEX ARTERY: Mild luminal irregularities RIGHT CORONARY ARTERY: MID RCA: 80 % Stenosis INTERVENTION INFORMATION LESION SITE: RCA (Mid) Lesion Complexity: High/C, chronic total occlusion: No, lesion at bifurcation: No, thrombus present: No, lesion length: 11 mm, culprit lesion: Yes, Previously treated lesion: No Pre Stenosis: 80 % Pre intervention CASA flow: 3 PROCEDURE: Drug Eluting Stent Post Stenosis: 0 % Post intervention CASA flow: 3 Lesion Devices: Cooper .014 190cm [employer] [place] Straight Medtronic 6 Fr JR4.0 100cm Guide Catheter Medtronic 4.0 x 12 AIME FRONTIER MARIYA Tilt Table Test from 09/19/2023: Summary: Evidence of vasodepressive syncope noted on tilt table with T wave inversions noted on EKG. ANKLE BRACHIAL INDEX 08/04/23: Interpretation Summary Triphasic Doppler waveforms are noted at ankle level bilaterally. Pulse-volume recordings appear satisfactory at ankle and digital levels bilaterally. Resting ankle-brachial indices are normal bilaterally. Digital-brachial indices are normal bilaterally. There is no evidence of significant arterial occlusive disease in the lower extremities bilaterally. CHEST CTA 07/26/23: FINDINGS: As seen on prior exam, patient has a localized short segment pseudoaneurysm or less likely, localized dissection, of the mid descending thoracic aorta. Can be seen on coronal images 146-20, axial images 119-154, and sagittal images 147-165. The length of this abnormality is approximately 6 cm. Diameter of the aorta in this segment is 3.4 cm. There is no extravasation of contrast or evidence for leak although the left wall of the defect is less than 1 mm thick. There is limited enhancement of the main pulmonary artery and right and left pulmonary arteries. There is limited enhancement of the bilateral peripheral pulmonary arteries. Specifically, most of the contrast is seen in the aorta. Pulmonary emboli cannot be excluded beyond the pulmonary trunk. Normal heart and pericardium. Normal mediastinum. Normal hilar regions. Normal visualized trachea and bronchi. The lungs are hyper expanded, with flattening of the hemidiaphragms. There is evidence for COPD. No infiltrates or effusions. Normal osseous structures. Normal visualized upper abdomen. IMPRESSION: Abnormal descending thoracic aorta where there is a segment of approximately 6 cm length that appears to represent a large pseudoaneurysm with a very thin overlying wall. No current evidence of leak. COPD. 48HR HOLTER MONITOR 08/18/23: AVG HR was 68 BPM in Normal Sinus Rhythm MIN HR was 44 BPM in Sinus Bradycardia at 0741 D1 MAX HR was 126 BPM in Sinus Tachycardia at 1640 D2 There were a total of 3247 ventricular ectopic beats comprising 1.6% of the total QRS complexes. 10ventricular couplets. 178 beats of ventricular bigeminy.27 beats of ventricular trigeminy. No runs noted. There were a total of 607 supraventricular ectopic beats comprising 0.3% of the total QRS complexes. 22 atrial couplets. 17 atrial runs totaling 125 beats. The longest and fastest run was 61 beats rate 188 BPM at 1610 D2, no symptoms noted. The longest R-R interval was 1.8 seconds at 0614 D2. There was no atrial fibrillation. CONCLUSION: 48 HOUR HOLTER MONITOR IN NORMAL SINUS RHYTHM WITH OCCASIONAL PVC'S/PAC'S AND ONE EPISODE OF SUPRAVENTRICULAR TACHYCARDIA. PULMONARY FUNCTION TEST 10/08/21: INTERPRETATION: Forced expiration spirometry demonstrates the presence of a mild large airways obstructive ventilatory defect. There was no significant response to aerosolized bronchodilators. Spirograms are of goodquality but do not plateau indicating slow emptying of the lungs. Body plethysmography was performed and reveals lung volumes to be within normal limits. Diffusing capacity by single breath CO is within normal limits. IMPRESSION: Irreversible mild large airways obstructive ventilatory defect with preserved lung volumes and diffusing capacity. Carotid Duplex 10/31/2024: Interpretation Summary Mild (<50%) stenosis right extracranial internal carotid. Mild (<50%) stenosis left extracranial internal carotid. Patent and antegrade vertebrals bilaterally. Labs: LDL Cholesterol 33 mg/dL (0-130) HDL Cholesterol 76 mg/dL (40-) Cholesterol 144 mg/dL (<=200) Triglycerides 65 mg/dL (-199) Diagnostics: Electrocardiogram Cardiac Catheterization Chest X-Ray Chest CTA Carotid Duplex Cardiac Tilt Table Test Coronary Angiography CT Pulmonary: Pulmonary Function Test Past Visits: Cardiology Visit 12/02/24 Assessment and Plan Assessment and Plan (1) Stented coronary artery: Status: Chronic Comment: [facility] 4.0 X 12 mm MARIYA to mid RCA 06/15/2023 Plan: Patient has a history of coronary artery disease with stent placement in June 2023. Her echocardiogram from 10/18/2024 from [facility] demonstrated an ejection fraction of 60 to 65%, mildto moderate tricuspid valveregurgitation, and mild aortic valve regurgitation. She denies any recent symptoms or events. She will continue with her current medical therapy: Klpeueq49 mg daily, atorvastatin 40 mg daily. She will continue with aggressive risk factor and lifestyle modifications, as well as monitoring for any concerning symptoms. (2) Syncope: Status: Chronic Qualifiers: Syncope type: unspecified Qualified Code(s): R55 - Syncope and collapse Comment: 04/2023 PASSED OUT Plan: Patient has a history of syncope. Her most recent tilt table test demonstrated vasodepressive syncope. Patient's most recent 14-day event monitor from 10/29/2024 demonstrated sinus rhythm with PVCs and an average heart rate of 77 bpm. VE less than 1%, SVE 1%, atrial fibrillation 0%. Her most recent carotid duplex from 10/31/2024 demonstrated mild less than 50% stenosis bilaterally. This was reviewedwith patient. She was strongly encouraged to stay well-hydrated. (3) Pseudoaneurysm of aorta: Status: Chronic Plan: Patient has a pseudoaneurysm of the aorta. She does follow with vascular/thoracic surgery for this. (4) Hypertension: Status: Chronic Comment: IMPROVING WITH MEDS AT THIS TIME Plan: Patient has a history of hypertension. Her blood pressure is well-controlled atthis time. She will continue with her current medical therapy, along with monitoring her blood pressures at home. She will notify our office of any persistently elevated or low blood pressure readings. (5) Dyslipidemia: Status: Chronic Plan: Patient has a history of dyslipidemia. Her most recent lipid panel from 10/26/2024: Cholesterol 144,HDL 76, LDL 55, triglycerides 65. She will continueatorvastatin 40 mg daily, along with aggressive risk factor and lifestyle modifications. (6) SVT (supraventricular tachycardia): Status: Chronic Plan: Patient does have a history of SVT. Her most recent 14-day event monitor from 10/29/2024 demonstrated sinus rhythm with PVCs and an average heart rate of 77 bpm. VE less than 1%, SVE 1%, atrial fibrillation 0%. This was reviewed with patient. She will continue to monitor for any concerning symptoms. Plan Details Additional Comments: Patient will follow-up in 6 months, or sooner if needed. Thank you for allowing me to participate in the care of your patient. Please donot hesitate to callif any issues arise. This note was generated using a voice recognition system and there may be incorrect words, spelling, or punctuation that were not noted when reviewing theoffice note prior to saving. Portions of this documentation were copied and pasted from previous office visitnotes to provide cohesive continuity of the history. The note has been reviewed,edited, and updated, as necessary. Follow Up: 6 Months (FOOD DEMONSTRATOR/PA) Coding Level of Care Code Off vis,est,level 4 Diagnoses Stented coronary artery Z95.5 Syncope, unspecified syncope type R55 Syncope type: unspecified Pseudoaneurysm of aorta I71.9 Hypertension I10 Dyslipidemia E78.5 SVT (supraventricular tachycardia) I47.10 Coding Level of Care Code Off vis,est,level 4 Diagnoses Stented coronary artery Z95.5 Syncope, unspecified syncope type R55 Syncope type: unspecified Pseudoaneurysm of aorta I71.9 Hypertension I10 Dyslipidemia E78.5 SVT (supraventricular tachycardia) I47.10 Clinical Quality Measures Falls Risk Screening/Assistive Devices Have you fallen in the past year?: Yes Cardiac Ejection fraction %: 65 12/02/24 1547 FOOD DEMONSTRATOR FOOD DEMONSTRATOR-C> Date _ Iva Calhoun FOOD DEMONSTRATOR FOOD DEMONSTRATOR-C Cosigner Signature: Date (if applicable) CC: ~ [place] [id number] Progress note Author Iva Calhoun [facility] Services Note Date/Time December 02, 2024 3:46p m [facility] [address] [place] [address] OFFICE VISIT Date of Service: 12/02/24 MR#: [id number] Acct: [id number] Name: AMIE RYAN Rep #: [id number] : 1960 Provider: JENNIFER Calhoun Age/Sex: 64/F Location: [facility] Status: Signed HPI HPI History of Present Illness Details: This is a 64-year-old female who presents today for a cardiovascular follow-up visit. She has a history of presyncopal episodes, SVT?she was referred to electrophysiology at [facility] but they canceled her appointment for some reason. Shehas a history of coronary artery disease with stent placement in June 2023, dyslipidemia, pseudoaneurysm of the aorta, and hypertension. From a cardiac standpoint, the patient is doing well. She denies any palpitations, chest pain, pressure or heaviness. She denies SOB, Orthopnea, and PND. She does not have bleeding issues; no blood in urine, stool, or nosebleeds.She denies any decrease in energy level, myalgias, or claudication. She does nothave edema, or sudden weight gain. She denies lightheadedness, dizziness, syncopal or near syncopal episodes, and headaches. Intake Vital Signs 10/21/24 15:33 12/02/24 07:02 Height 5 ft 4 in 5 ft 4 in Weight: 133 lb BMI 22.8 BP 118/68 Blood Pressure Location Lt brachial Position Sitting Respiration 18 Pulse 60 Pulse Source Monitor Pulse Oximetry (%) 98 Intake Visit Reasons: 6 W FU [employer] Supervisor Required: No Is patient in pain?: No Allergies No Known Allergies Allergy (Verified 12/02/24 15:32) Medications ?Medication ?Instructions ?Recorded ?Confirmed ?Type magnesium oxide 400 mg PO DAILY 11/12/2108/27 History cyclobenzaprine 10 mg tablet 10 mg PO DAILY PRN muscle spasm 11/09/23 06/02/25 History atorvastatin 40 mg tablet 40 mg PO QHS #30 tabs 12/02/24 Rx cholecalciferol (vitamin D3) 25 25 mcg PO DAILY 12/02/24 History mcg (1,000 unit) tablet (Vitamin D3) aspirin 81 mg tablet,delayed 81 mg PO DAILY 06/12/23 0 12/02/24 History release (Adult Aspirin Regimen) calcium carbonate (Calcium 600) 600 mg PO DAILY 12/02/24 History ferrous sulfate 325 mg (65 mg 325 mg PO Q OTHER DAY 12/02/24 History iron) tablet (FeroSul) losartan 50 mg tablet 50 mg PO DAILY #90 tabs 06/0312/02/24 Rx amlodipine 5 mg tablet 5 mg PO DAILY #30 tabs 10/2112/02/24 Rx cephalexin 250 mg capsule 250 mg PO TID 12/02/2412/02 History Ejection fraction %: 65 Have you fallen in the past year?: Yes PFSH Medical History Coronary artery disease Raynauds phenomenon Dyslipidemia Palpitations Hypokalemia Abnormal findings diagnostic imaging of heart and coronary circulation (06/07/23) Atherosclerotic heart disease of [place] coronary artery without angina pectoris (06/07/23) 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) Anxiety Shortness of breath on exertion History of echocardiogram History of stress test Cardiology follow-up encounter History of irregular heartbeat Guaiac positive stools Abnormal ECG Anemia Blood in stool Pseudoaneurysm of aorta Fatigue Syncope Vitamin D deficiency Major depressive disorder, recurrent episode, in full remission Lightheadedness Numbness and tingling in both hands Bradycardia Wears contact lenses Post-menopausal Excessive bleeding Easy bruising Restless legs Back pain History of IBS Former smoker Encounter for screening for malignant neoplasm of colon Muscle spasm Hyperlipidemia Hypertension Surgical History Stented coronary artery (06/15/23) Hx of hysterectomy Hx of colonoscopy Family History Mother Hypertension Cancer Arthritis CVA (cerebral vascular accident) Stomach ulcer Father Cancer bladder Grandmother Cancer Uncle Prostate carcinoma Social History household members: spouse Smoking Status: Former smoker alcohol intake: former year quit: 1990 substance use type: does not use caffeine: Yes Type: carbonated beverages Number of servings: 1 ROS Const Const: Negative for fatigue, weakness, headache(s) or frequent falls Eyes Eyes: Negative for blurry vision ENT ENT: Negative for headache(s), dizziness or Nosebleed/epistaxis Cardio Chest Pain: No Palpitations: No Edema: None Muscle aches with walking: None Resp Respiratory: Negative for SOB with activity, SOB at rest or SOB orthopneaundefinedSOB lying down GI GI: Negative nausea, vomiting, heartburn, bright, red blood in stools or black,tarry stools : Negative for hematuria Neuro Neuro: Negative for dizziness, lightheadedness, near syncope, syncope, frequent falls, headache(s), weakness or blurry vision Endo Endo: Negative for fatigue Cardiology Exam Const Appearance: cooperative, comfortable and no acute distress Nutritional Appearance: well nourished Orientation: alert and oriented x3 Head Head: normal to inspection Ears: hearing grossly normal bilaterally Nose: external nose normal Face and Sinus: face symmetric Eyes General: appearance normal, both eyes and all related structures Eyelids: eyelids normal Conjunctivae: conjunctivae normal Pupils: PERRL and pupil size EOM: EOM intact bilaterally Neck Neck: no JVD Carotids: Negative bruit Chest Chest inspection: normal inspection of the chest and normal respiratory effort Auscultation: Bilateral: Clear to Auscultation Cardio Palpation: normal PMI Rate: bradycardic Rhythm: regular rhythm Heart sounds: S1 normal and S2 normal GI GI: normal to inspection and soft Neuro General: patient alert, patient awake and patient oriented x3 Skin Skin: no rashes or lesions noted Extremities Pulses: Normal: Right Posterior Tibial Pulse, Left Posterior Tibial Pulse, RightRadial Pulse and Left Radial Pulse Lower Extremity Edema: None: Bilateral Psych Psychological: normal affect Supplemental Info Supplemental Information ECHOCARDIOGRAM 05/01/23: CONCLUSION 1. There is mild concentric left ventricular hypertrophy. Left ventricle is normal in size. Systolic ejection fraction 55-60% with normal wall motion. 2. There is mild mitral valve regurgitation seen. 3. Aortic valve is trileaflet. There is mild to moderate eccentric aortic valve regurgitation and no stenosis seen. 4. Aortic root dilated 3.8 cm 5. Right ventricle is normal in size and systolic function. 6. Estimated right ventricular systolic pressure is 29 mmHg. STRESS TEST 05/02/23: EKG DATA EKG at baseline: showed sinus rhythm at 70 BPM. Anteroseptal infarct. There is aT-wave inversion seen in the lateral leads. EKG with stress: showed sinus tachycardia at 144 BPM. Stress EKG is nondiagnostic due to abnormal baseline EKG. CONCLUSION 1. Patient complain of non limiting chest pain with stress. Stress test was ended due to fatigue. 2. Patient had appropriate heart rate and blood pressure response with stress. 3. Patient was able to achieve average workload capacity. 4. Stress EKG is nondiagnostic due to abnormal baseline EKG. 5. Nuclear images will be reported separately. CONCLUSION 1. Nuclear stress test showed no conclusive evidence of reversible ischemia or infarct. 2. Calculated ejection fraction is 63% with normal wall motion. 3. TID ratio is normal. CT Abdomen/Pelvis 04/30/23: CONCLUSION 1. 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 2. There is no evidence of acute hemorrhage. 3. Moderate stool retention. CAROTID FLOW STUDY 05/01/23: CONCLUSION 1. Mild mixed and smooth plaque is present. 2. There is no evidence of hemodynamically significant stenosis. CARDIAC CATHETERIZATION 06/15/23: CONCLUSIONS CAD as described. Successful MARIYA to mid RCA. CORONARY ANGIOGRAPHY DOMINANCE: Right Dominant LEFT MAIN: Mild luminal irregularities LEFT ANTERIOR DESCENDING ARTERY: Mild luminal irregularities CIRCUMFLEX ARTERY: Mild luminal irregularities RIGHT CORONARY ARTERY: MID RCA: 80 % Stenosis INTERVENTION INFORMATION LESION SITE: RCA (Mid) Lesion Complexity: High/C, chronic total occlusion: No, lesion at bifurcation: No, thrombus present: No, lesion length: 11 mm, culprit lesion: Yes, Previously treated lesion: No Pre Stenosis: 80 % Pre intervention CASA flow: 3 PROCEDURE: Drug Eluting Stent Post Stenosis: 0 % Post intervention CASA flow: 3 Lesion Devices: Cooper .014 190cm [employer] [place] Straight Medtronic 6 Fr JR4.0 100cm Guide Catheter Medtronic 4.0 x 12 AIME FRONTIER MARIYA Tilt Table Test from 09/19/2023: Summary: Evidence of vasodepressive syncope noted on tilt table with T wave inversions noted on EKG. ANKLE BRACHIAL INDEX 08/04/23: Interpretation Summary Triphasic Doppler waveforms are noted at ankle level bilaterally. Pulse-volume recordings appear satisfactory at ankle and digital levels bilaterally. Resting ankle-brachial indices are normal bilaterally. Digital-brachial indices are normal bilaterally. There is no evidence of significant arterial occlusive disease in the lower extremities bilaterally. CHEST CTA 07/26/23: FINDINGS: As seen on prior exam, patient has a localized short segment pseudoaneurysm or less likely, localized dissection, of the mid descending thoracic aorta. Can be seen on coronal images 146-20, axial images 119-154, and sagittal images 147-165. The length of this abnormality is approximately 6 cm. Diameter of the aorta in this segment is 3.4 cm. There is no extravasation of contrast or evidence for leak although the left wall of the defect is less than 1 mm thick. There is limited enhancement of the main pulmonary artery and right and left pulmonary arteries. There is limited enhancement of the bilateral peripheral pulmonary arteries. Specifically, most of the contrast is seen in the aorta. Pulmonary emboli cannot be excluded beyond the pulmonary trunk. Normal heart and pericardium. Normal mediastinum. Normal hilar regions. Normal visualized trachea and bronchi. The lungs are hyper expanded, with flattening of the hemidiaphragms. There is evidence for COPD. No infiltrates or effusions. Normal osseous structures. Normal visualized upper abdomen. IMPRESSION: Abnormal descending thoracic aorta where there is a segment of approximately 6 cm length that appears to represent a large pseudoaneurysm with a very thin overlying wall. No current evidence of leak. COPD. 48HR HOLTER MONITOR 08/18/23: AVG HR was 68 BPM in Normal Sinus Rhythm MIN HR was 44 BPM in Sinus Bradycardia at 0741 D1 MAX HR was 126 BPM in Sinus Tachycardia at 1640 D2 There were a total of 3247 ventricular ectopic beats comprising 1.6% of the total QRS complexes. 10 ventricular couplets. 178 beats of ventricular bigeminy.27 beats of ventricular trigeminy. No runs noted. There were a total of 607 supraventricular ectopic beats comprising 0.3% of the total QRS complexes. 22 atrial couplets. 17 atrial runs totaling 125 beats. The longest and fastest run was 61 beats rate 188 BPM at 1610 D2, no symptoms noted. The longest R-R interval was 1.8 seconds at 0614 D2. There was no atrial fibrillation. CONCLUSION: 48 HOUR HOLTER MONITOR IN NORMAL SINUS RHYTHM WITH OCCASIONAL PVC'S/PAC'S AND ONE EPISODE OF SUPRAVENTRICULAR TACHYCARDIA. PULMONARY FUNCTION TEST 10/08/21: INTERPRETATION: Forced expiration spirometry demonstrates the presence of a mild large airways obstructive ventilatory defect. There was no significant response to aerosolized bronchodilators. Spirograms are of good quality but do not plateau indicating slow emptying of the lungs. Body plethysmography was performed and reveals lung volumes to be within normal limits. Diffusing capacity by single breath CO is within normal limits. IMPRESSION: Irreversible mild large airways obstructive ventilatory defect with preserved lung volumes and diffusing capacity. Carotid Duplex 10/31/2024: Interpretation Summary Mild (<50%) stenosis right extracranial internal carotid. Mild (<50%) stenosis left extracranial internal carotid. Patent and antegrade vertebrals bilaterally. Labs: LDL Cholesterol 33 mg/dL (0-130) HDL Cholesterol 76 mg/dL (40-) Cholesterol 144 mg/dL (<=200) Triglycerides 65 mg/dL (-199) Diagnostics: Electrocardiogram Cardiac Catheterization Chest X-Ray Chest CTA Carotid Duplex Cardiac Tilt Table Test Coronary Angiography CT Pulmonary: Pulmonary Function Test Past Visits: Cardiology Visit 12/02/24 Assessment and Plan Assessment and Plan (1) Stented coronary artery: Status: Chronic Comment: [place] 4.0 X 12 mm MARIYA to mid RCA 06/15/2023 Plan: Patient has a history of coronary artery disease with stent placement in June 2023. Her echocardiogram from 10/18/2024 from [facility] demonstrated an ejection fraction of 60 to 65%, mild to moderate tricuspid valveregurgitation, and mild aortic valve regurgitation. She denies any recent symptoms or events. She will continue with her current medical therapy: Rhjrexx13 mg daily, atorvastatin 40 mg daily. She will continue with aggressive risk factor and lifestyle modifications, as well as monitoring for any concerning symptoms. (2) Syncope: Status: Chronic Qualifiers: Syncope type: unspecified Qualified Code(s): R55 - Syncope and collapse Comment: 04/2023 PASSED OUT Plan: Patient has a history of syncope. Her most recent tilt table test demonstrated vasodepressive syncope. Patient's most recent 14-day event monitor from 10/29/2024 demonstrated sinus rhythm with PVCs and an average heart rate of 77 bpm. VE less than 1%, SVE 1%, atrial fibrillation 0%. Her most recent carotid duplex from 10/31/2024 demonstrated mild less than 50% stenosis bilaterally. This was reviewed with patient. She was strongly encouraged to stay well-hydrated. (3) Pseudoaneurysm of aorta: Status: Chronic Plan: Patient has a pseudoaneurysm of the aorta. She does follow with vascular/thoracic surgery for this. (4) Hypertension: Status: Chronic Comment: IMPROVING WITH MEDS AT THIS TIME Plan: Patient has a history of hypertension. Her blood pressure is well-controlled atthis time. She will continue with her current medical therapy, along with monitoring her blood pressures at home. She will notify our office of any persistently elevated or low blood pressure readings. (5) Dyslipidemia: Status: Chronic Plan: Patient has a history of dyslipidemia. Her most recent lipid panel from 10/26/2024: Cholesterol 144, HDL 76, LDL 55, triglycerides 65. She will continueatorvastatin 40 mg daily, along with aggressive risk factor and lifestyle modifications. (6) SVT (supraventricular tachycardia): Status: Chronic Plan: Patient does have a history of SVT. Her most recent 14-day event monitor from 10/29/2024 demonstrated sinus rhythm with PVCs and an average heart rate of 77 bpm. VE less than 1%, SVE 1%, atrial fibrillation 0%. This was reviewed with patient. She will continue to monitor for any concerning symptoms. Plan Details Additional Comments: Patient will follow-up in 6 months, or sooner if needed. Thank you for allowing me to participate in the care of your patient. Please donot hesitate to call if any issues arise. This note was generated using a voice recognition system and there may be incorrect words, spelling, or punctuation that were not noted when reviewing theoffice note prior to saving. Portions of this documentation were copied and pasted from previous office visitnotes to provide cohesive continuity of the history. The note has been reviewed,edited, and updated, as necessary. Follow Up: 6 Months (FOOD DEMONSTRATOR/PA) Coding Level of Care Code Off vis,est,level 4 Diagnoses Stented coronary artery Z95.5 Syncope, unspecified syncope type R55 Syncope type: unspecified Pseudoaneurysm of aorta I71.9 Hypertension I10 Dyslipidemia E78.5 SVT (supraventricular tachycardia) I47.10 Coding Level of Care Code Off vis,est,level 4 Diagnoses Stented coronary artery Z95.5 Syncope, unspecified syncope type R55 Syncope type: unspecified Pseudoaneurysm of aorta I71.9 Hypertension I10 Dyslipidemia E78.5 SVT (supraventricular tachycardia) I47.10 Clinical Quality Measures Falls Risk Screening/Assistive Devices Have you fallen in the past year?: Yes Cardiac Ejection fraction %: 65 12/02/24 1547 <Electronically signed by Iva Calhoun NP, NP-C> Date _ Iva Calhoun NP FOOD DEMONSTRATOR-C Cosigner Signature: Date (if applicable) CC: ~ [facility] Work Phone: 1(380) 602-976205-05-2025 Radiology Diagnostic study note [facility] [address] [place] [address] [id number] Kidney and Bladder MR#: [id number] Acct: [id number] Name: AMIE RYAN Rep #: [id number] : 1960 F 64 From: Aubree Reed MD PCP: Dr. Renato Bonilla MD Status: [facility] Study:Kidney and Bladder Date of Exam: 0 10/31/24 Exam# [id number] Ordering Dr: Renato Bonilla MD ADDENDUM by Dr. Heri Reed MD on 11/04/24 at 1914 As a technical note, note that spectral Doppler imaging was not performed. END OF ADDENDUM Reading Location: [id number] 11/04/241913 Date cc: Dr. Renato Bonilla MD ~* Signed PROCEDURE: KIDNEY AND BLADDER (USKI), 10/31/2024 REASON FOR EXAM: OVERACTIVE BLADDER TECHNIQUE: Grayscale and color/spectral doppler ultrasound of the kidneys and bladder was performed. COMPARISON: None FINDINGS: Right kidney: 10.8 cm in length. Cyst measures 7 x 5 x 5 mm. No visualized calculus or hydronephrosis. Left kidney: 9.9 cm in length. Cysts up to 15 x 11 x 11 mm superiorly. A 11 x 12 x 11 mm cyst in the mid kidney laterally demonstrates a questionable septation and mural calcifications. No visualized hydronephrosis. Bladder: Estimated volume 271 mL. Borderline mild bladder wall thickening to 4 mm. Other: None. US/Kidney and Bladder IMPRESSION: 1. No hydronephrosis. 2. 11 mm mildly complex LEFT renal cyst, probably Bosniak II although incompletely characterized byultrasound. Consider follow-up in 6-12 months and/or comparison against any available outside imaging. 3. Borderline mild bladder wall thickening. Correlate for cystitis and/or chronic bladder outlet obstruction. 4. Additional description as above. Reading Location: [id number] CC: Dr. Renato Bonilla MD ~ Care Partner: Signed [facility]04-21-2025 Evaluation note* Diagnosis Onset Date Resolution Status Admit Date Dizziness acute October 21 3:26pm Dyslipidemia chronic October 21, 2024 3:26pm Hypertension chronic October 21, 2024 3:26pm Pseudoaneurysm of aorta chronic A 2024 3:26pm Stented coronary artery June 15, 2023 [facility] onic October 21, 2024 3:26pm SVT (supraventricular tachycardia) chronic October 21, 2024 3:26pm Syncope chronic October 21 3:26pm [facility] Work Phone: 1(104) 852-694704-21-2025 Evaluation note* Diagnosis Onset Date Resolution Status Admit Date Dizziness acute October 21 3:26pm Dyslipidemia chronic October 21, 2024 3:26pm Hypertension chronic October 21, 2024 3:26pm Pseudoaneurysm of aorta chronic A 2024 3:26pm Stented coronary artery June 15, 2023 [facility] October 21, 2024 3:26pm SVT (supraventricular tachycardia) chronic October 21, 2024 3:26pm Syncope chronic October 21 3:26pm Dyslipidemia chronic Lizz 2nd, 20 25 3:22pm Hypertension chronic December 02 3:22pm Pseudoaneurysm of aorta chronic J 2024 3:22pm Stented coronary artery June 15, 2023 [facility] December 02, 2024 3:22pm SVT (supraventricular tachycardia) chronic December 02, 2024 3:22pm Syncope chronic December 02, 2024 3:22pm [facility] Work Phone: 1(284) 424-682904-18-2025 Nurse Note* Gudelia Barnett RN - 10/18/2024 1:56 PM EDT Discharge Note: 10/18/2024 1356 Declines wheelchair, ambulates to elevator accompanied by family, personal belongings taken by pt, no distress noted, no complaints voiced. Gino SPENCER [facility]04-18-2025 Nurse Note* Gudelia Barnett RN - 10/18/2024 1:56 PM EDT Discharge Note: 10/18/2024 1356 Declines wheelchair, ambulates to elevator accompanied by family, personal belongings taken by pt, no distress noted, no complaints voiced. Gino SPENCER * Gudelia Barnett RN - 10/18/2024 1:33 PM EDT Discharge Note: 10/18/2024 1323 AVS and pt responsibilities reviewed with pt and copy given. Chest pain, aneurysm, education reviewed with pt and information sheets given. Pt verbalizes understanding of instructions received, verbalizes understanding of when to seek medical attention, denies any home going or personal care needs. Denies further questions or concerns. Reviewed follow up appts with pt and verbalizes understanding. Denies any cardiac symptoms at present. Gino SPENCER documented in this [facility] Work Phone: 1(970) 491-355604-18-2025 Nurse Note* Gudelia Barnett RN - 10/18/2024 1:33 PM EDT Discharge Note: 10/18/2024 1323 AVS and pt responsibilities reviewed with pt and copy given. Chest pain, aneurysm, education reviewed with pt and information sheets given. Pt verbalizes understanding of instructions received, verbalizes understanding of when to seek medical attention, denies any home going or personal care needs. Denies further questions or concerns. Reviewed follow up appts with pt and verbalizes understanding. Denies any cardiac symptoms at present. 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 * Attachments The following attachments cannot be sent through Care Everywhere. * Chest Pain Discharge Instructions (Burmese) [facility] Phone: 1(756) 597-467804-18-2025 research program manager Note* Significant Event - Rubia Leyva RN - 10/18/2024 11:03 AM EDT 10ml of saline given for bubble study per human resources technician instruction [facility]04-18-2025 Miscellaneous Notes* Significant Event - Rubia Leyva RN - 10/18/2024 11:03 AM EDT 10ml of saline given for bubble study per human resources technician instruction * Care Plan - Latisha Kaur RN - 10/18/2024 9:45 AM EDT The patient's goals for the shift include Problem: Safety - Adult Goal: Free from fall injury Outcome: Progressing Problem: Discharge Planning Goal: Discharge to home or other facility with appropriate resources Outcome: Progressing Problem: Chronic Conditions and Co-morbidities Goal: Patient's chronic conditions and co-morbidity symptoms are monitored and maintained or improved Outcome: Progressing Problem: Nutrition Goal: Nutrient intake appropriate for maintaining nutritional needs Outcome: Progressing The clinical goals for the shift include no c/o chest pain * Care Plan - Yolanda Murrell RN - 10/18/2024 5:38 AM EDT The patient's goals for the shift include comfort and rest The clinical goals for the shift include patient safety and resolultion of symptoms Pt. Had denied pain this shift. In bed with eyes closed for most of the shift without issues. Problem: Safety - Adult Goal: Free from fall injury Outcome: Progressing Problem: Discharge Planning Goal: Discharge to home or other facility with appropriate resources Outcome: Progressing Problem: Chronic Conditions and Co-morbidities Goal: Patient's chronic conditions and co-morbidity symptoms are monitored and maintained or improved Outcome: Progressing Problem: Nutrition Goal: Nutrient intake appropriate for maintaining nutritional needs Outcome: Progressing * Care Plan - Yoly Beasley RN - 10/17/2024 6:55 PM EDT The patient's goals for the shift include comfort and rest The clinical goals for the shift include patient safety and resolultion of symptoms Problem: Safety - Adult Goal: Free from fall injury Outcome: Progressing Problem: Discharge Planning Goal: Discharge to home or other facility with appropriate resources Outcome: Progressing Problem: Chronic Conditions and Co-morbidities Goal: Patient's chronic conditions and co-morbidity symptoms are monitored and maintained or improved Outcome: Progressing Problem: Nutrition Goal: Nutrient intake appropriate for maintaining nutritional needs Outcome: Progressing documented in this [facility] Work Phone: 1([phone]) 660-372404-18-2025 Plan of care note* Care Plan - Latisha Kaur RN - 10/18/2024 9:45 AM EDT The patient's goals for the shift include Problem: Safety - Adult Goal: Free from fall injury Outcome: Progressing Problem: Discharge Planning Goal: Discharge to home or other facility with appropriate resources Outcome: Progressing Problem: Chronic Conditions and Co-morbidities Goal: Patient's chronic conditions and co-morbidity symptoms are monitored and maintained or improved Outcome: Progressing Problem: Nutrition Goal: Nutrient intake appropriate for maintaining nutritional needs Outcome: Progressing The clinical goals for the shift include no c/o chest pain [facility]04-18-2025 Plan of care note* Care Plan - Yolanda Murrell RN - 10/18/2024 5:38 AM EDT The patient's goals for the shift include comfort and rest The clinical goals for the shift include patient safety and resolultion of symptoms Pt. Had denied pain this shift. In bed with eyes closed for most of the shift without issues. Problem: Safety - Adult Goal: Free from fall injury Outcome: Progressing Problem: Discharge Planning Goal: Discharge to home or other facility with appropriate resources Outcome: Progressing Problem: Chronic Conditions and Co-morbidities Goal: Patient's chronic conditions and co-morbidity symptoms are monitored and maintained or improved Outcome: Progressing Problem: Nutrition Goal: Nutrient intake appropriate for maintaining nutritional needs Outcome: Progressing [facility]04-17-2025 Plan of care note* Care Plan - Yoly Beasley RN - 10/17/2024 6:55 PM EDT The patient's goals for the shift include comfort and rest The clinical goals for the shift include patient safety and resolultion of symptoms Problem: Safety - Adult Goal: Free from fall injury Outcome: Progressing Problem: Discharge Planning Goal: Discharge to home or other facility with appropriate resources Outcome: Progressing Problem: Chronic Conditions and Co-morbidities Goal: Patient's chronic conditions and co-morbidity symptoms are monitored and maintained or improved Outcome: Progressing Problem: Nutrition Goal: Nutrient intake appropriate for maintaining nutritional needs Outcome: Progressing [facility] Work Phone: 1(296) 466-721804-17-2025 History and physical note* Easton García MD - 10/17/2024 4:37 PM EDT HISTORY AND PHYSICAL EXAMINATION Name of the patient: Amie Ryan Date of : 1960 Age: 64 y.o. Date of service: 10/17/24 Time: 4:37 PM CHIEF COMPLAINT: Near syncopal episode. HISTORY OF PRESENT ILLNESS: This is a 64 years old female patient with past medical history as mentioned below [facility] because of near syncopal episode and atypical chest pain. Her symptoms started this morning when she was at work, sitting on her desk, started having right lower back/right lateral chest pain, dull aching pain, mild to moderate, associated with dizziness and lightheadedness and lasted for few minutes. Initially, she got better but later on, pain came back and she feels dizzy again and lightheaded. She denied loss of consciousness. She mentioned that she took her blood pressure and it was 69/47. She denied anterior chest pain or shortness of breath. She denied sweating, fever orchills. She denied abdominal pain, nausea or vomiting. She denied urinary symptoms. She had a history of descending thoracic aortic aneurysm as well history of CAD status post stents. In the emergency department, patient's pressure has been stable. She has been afebrile, heart rate stable. EKG revealed normal sinus rhythm with low voltage, no evidence of cardiac arrhythmias or acute schema changes. Troponin was negative x 1. Chest x-ray was unremarkable. CTA chest showed findings consistent with chronic focal dissection with aneurysmal dilatation versus chronic/subacute perforated ulcer without any surrounding inflammatory changes or active bleeding. ED physician contacted vascular surgeon Dr. Guzman who reviewed the CTA that was done on 10/10/2024 and stated that there is no significant change on today's CTA compared to previous CTAs. Patient is being admitted for observation overnight. Medical History[1] Surgical History[2] Family History[3] Social History Socioeconomic History Marital status: Single Spouse name: Not on file Number of children: Not on file Years of education: Not on file Highest education level: Not on file Occupational History Not on file Tobacco Use Smoking status: Never Passive exposure: Never Smokeless tobacco: Never Substance and Sexual Activity Alcohol use: Never Drug use: Never Sexual activity: Not on file Other Topics Concern Not on file Social History Narrative Not on file Social Drivers of Health Financial Resource Strain: Not on file Food Insecurity: Not on file Transportation Needs: Not on file Physical Activity: Not on file Stress: Not on file Social Connections: Not on file Intimate Partner Violence: Not on file Housing Stability: Not on file Current Home medications: Medications Ordered Prior to Encounter[4] Review of systems: Constitutional: Negative for chills, diaphoresis, fatigue and fever. HENT: Negative for congestion, ear discharge, ear pain, hearing loss, rhinorrhea and sneezing. Eyes: Negative for pain, discharge and itching. Respiratory: Negative for cough, chest tightness, shortness of breath. Negative for apnea, choking,wheezing and stridor. Cardiovascular: Reported atypical right lateral chest pain, negative palpitations and leg swelling. Gastrointestinal: Negative for abdominal distention, abdominal pain, blood in stool, constipation, diarrhea and nausea. Endocrine: Negative for cold intolerance, heat intolerance and polydipsia. Genitourinary: Negative for difficulty urinating, dysuria, flank pain, frequency and hematuria. Musculoskeletal: Negative for arthralgias, back pain and gait problem. Neurological: Negative for dizziness, seizures, syncope, facial asymmetry, speech difficulty, weakness and headaches. Psychiatric/Behavioral: Negative for behavioral problems, confusion and hallucinations. Vital signs: Visit Vitals BP 131/71 Pulse 53 Temp 36 C (96.8 F) (Temporal) Resp 15 Physical examination: General: Awake, alert, oriented x3, no distress, cooperative. HEENT: EOM intact, PERRLA. Neck: Supple, no JVD, no masses, no lymphadenopathy. Chest: Normal breath sounds bilateral, good chest expansion, no wheezes, no crackles, no rhonchi. Heart: Regular rate and rhythm, S1-S2 normal, no murmur, no gallops. Abdomen: Soft, nontender, no organomegaly, no ascites, no guarding or rigidity. Neurological: Alert and oriented x3, cranial nerves are intact, normal power and tone of 4 limbs. Skin: No lesions, no skin rash. Warm and dry. Musculoskeletal: Normal, atraumatic, no obvious deformities. Legs: No leg edema, no clubbing or cyanosis. Psych: Appropriate mood and behavior. LABS: Lab Results Component Value Date WBC 3.7 (L) 10/17/2024 HGB 12.3 10/17/2024 HCT 37.0 10/17/2024 MCV 98 10/17/2024 PLT 220 10/17/2024 Lab Results Component Value Date GLUCOSE 113 (H) 10/17/2024 CALCIUM 9.7 10/17/2024 NA 137 10/17/2024 K 4.3 10/17/2024 CO2 25 10/17/2024 CL 104 10/17/2024 BUN 26 (H) 10/17/2024 CREATININE 1.28 (H) 10/17/2024 Lab Results Component Value Date ALT 11 10/17/2024 AST 19 10/17/2024 ALKPHOS 70 10/17/2024 BILITOT 0.4 10/17/2024 Imaging: Procedure Component Value Units Date/Time CT angio chest abdomen pelvis [[id number]] Collected: 10/17/24 1255 Order Status: Completed Updated: 10/17/24 1509 Narrative: Interpreted By: Hunter Torres, STUDY: CT ANGIO CHEST ABDOMEN PELVIS; 10/17/2024 12:36 pm INDICATION: Signs/Symptoms:ABD PAIN/NEAR SYNCOPE/ HX OF DEEP AORTIC ULCERATION. COMPARISON: None. ACCESSION NUMBER(S): [id number] ORDERING CLINICIAN: JESUS LA TECHNIQUE: CT of the chest, abdomen, and pelvis was performed. Contiguous axial images were obtained at 3 mm slice thickness through the chest, abdomen and pelvis. Coronal and sagittal reconstructions at 3 mm slice thickness were performed. 70 ML of Omnipaque 350 was administered intravenously without immediate complication. Images performed before and after IV contrast administration. Postcontrast acquisitions performed in the FINDINGS: CHEST: LUNG/PLEURA/LARGE AIRWAYS: No lung masses, pulmonary nodules or consolidations are present. There is no pleural effusion or pneumothorax. VESSELS: Eccentric outpouching of the descending thoracic aorta beyond the intima measures a proximally 5.7 cm in craniocaudal dimension. The aorta measures 3.3 cm at this level. There is no surrounding inflammatory changes or stranding or bleeding. Scattered atherosclerotic calcifications of the remainder of the visualized abdominal aorta. The ascending thoracic aorta is intact. The branch vessels are patent with scattered atherosclerotic calcifications. Iliac vasculature demonstrates scattered atherosclerotic calcifications without definite flow-limiting stenosis. The mesenteric artery origins are patent. No narrowing of the bilateral renal arteries origin. No large pulmonary central embolus on this limited examination. HEART: Normal size. There is no pericardial effusion. MEDIASTINUM AND KATI: No mediastinal, hilar or axillary lymphadenopathy is present. Esophagus: Within normal limits. CHEST WALL AND LOWER NECK: Within normal limits. The visualized thyroid gland appears within normal limits. ABDOMEN: LIVER: The liver is normal in size without evidence of focal liver lesions. BILE DUCTS: The intrahepatic and extrahepatic ducts are not dilated. GALLBLADDER: No calcified stones. No wall thickening. PANCREAS: The pancreas appears unremarkable. SPLEEN: The spleen is normal in size. ADRENAL GLANDS: Bilateral adrenal glands appear normal. KIDNEYS AND URETERS: The kidneys are normal in size and enhance symmetrically. No hydroureteronephrosis or nephroureterolithiasis is identified. Scattered bilateral cysts. PELVIS: BLADDER: The urinary bladder appears normal without abnormal wall thickening. REPRODUCTIVE ORGANS: No pelvic masses. BOWEL: The stomach, small and large bowel are normal in appearance without wall thickening or obstruction. The small and large bowel are normal in caliber and demonstrate no wall thickening. The appendix is not definitely visualized. There is however no pericecal stranding or fluid. PERITONEUM/RETROPERITONEUM/LYMPH NODES: No ascites or free air, no fluid collection. No enlarged mesenteric lymph nodes. BONE AND SOFT TISSUE: No suspicious osseous lesions are identified. Moderate to marked L2-L3 discogenic degenerative changes. Impression: Eccentric outpouching of the descending thoracic aorta beyond the intima measures a proximally 5.7 cm in craniocaudal dimension. The aorta measures 3.3 cm at this level. There is no surrounding inflammatory changes or stranding or bleeding. 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 MACRO: None Signed by: Hunter Torres 10/17/2024 3:08 PM Dictation workstation: [id number] XR chest 1 view [[id number]] Collected: 10/17/24 1110 Order Status: Completed Updated: 10/17/24 111 Narrative: Interpreted By: Jeffrey Patel, STUDY: XR CHEST 1 VIEW INDICATION: Signs/Symptoms:CHEST PAIN. COMPARISON: None ACCESSION NUMBER(S): [id number] ORDERING CLINICIAN: JESUS LA FINDINGS: No consolidation, effusion, edema, or pneumothorax. Heart size within normal limits. Impression: No evidence of acute intrathoracic abnormality. Signed by: Jeffrey Patel 10/17/2024 11:09 AM Dictation workstation: [id number] Assessment/Plan Assessment & Plan #1 near syncopal episode/atypical chest pain: EKG was unremarkable. Troponin was negative. Chest x-ray showed no acute findings. Patient's blood pressure improved and she has been asymptomatic since arrival to ED. Plan: Observation to telemetry floor, bedrest, cardiac monitoring, repeat troponin at6 PM tonight and 6 AM tomorrow morning, consult cardiology/vascular surgery, orthostatic vitals tomorrow morning, Tylenol as needed, IV fluids, repeat CBC and BMP tomorrow morning. #2 history of descending aortic aneurysm: CTA angio of the chest reviewed as above. Vascular surgery stated that there is no significant change from the CTA chest that was done on 10/10/2024. Plan as above, observation, consult vascular surgery/cardiology. #3 hypertension: Blood pressure improved after arrival to ED. Plan to resume amlodipine and losartan. #4 hyperlipidemia: Continue statins. #5 DVT prophylaxis: Subcu Lovenox. MDM: Moderate complexity, time spent is 61 minutes. Easton García MD 10/17/24 4:48 PM [1] Past Medical History: Diagnosis Date Bradycardia Hyperlipidemia Hypertension Penetrating atherosclerotic ulcer of aorta SVT (supraventricular tachycardia) ([facility]) [2] Past Surgical History: Procedure Laterality Date CORONARY ANGIOPLASTY WITH STENT PLACEMENT HYSTERECTOMY [3] No family history on file. [4] No current facility-administered medications on file prior to encounter. Current Outpatient Medications on File Prior to Encounter Medication Sig Dispense Refill amLODIPine (Norvasc) 10 mg tablet Take 1 tablet (10 mg) by mouth once daily at bedtime. aspirin 81 mg EC tablet Take 1 tablet (81 mg) by mouth once daily at bedtime. atorvastatin (Lipitor) 40 mg tablet Take 1 tablet (40 mg) by mouth once daily at bedtime. calcium carbonate (CALCIUM 600 ORAL) Take 1 tablet by mouth once daily. cholecalciferol (Vitamin D-3) 25 mcg (1,000 units) capsule Take 1 capsule (25 mcg) by mouth once daily at bedtime. cyclobenzaprine (Flexeril) 10 mg tablet Take 1 tablet (10 mg) by mouth 3 times a day as needed for muscle spasms. ferrous sulfate 325 (65 Fe) mg EC tablet Take 1 tablet by mouth every other day. Do not crush, chew, or split. losartan (Cozaar) 50 mg tablet Take 1 tablet (50 mg) by mouth once daily at bedtime. MAGNESIUM GLYCINATE ORAL Take 500 mg by mouth once daily at bedtime. [facility] Work Phone: 1(864) 857-483604-17-2025 History and physical note* Easton García MD - 10/17/2024 4:37 PM EDT HISTORY AND PHYSICAL EXAMINATION Name of the patient: Amie Ryan Date of : 1960 Age: 64 y.o. Date of service: 10/17/24 Time: 4:37 PM CHIEF COMPLAINT: Near syncopal episode. HISTORY OF PRESENT ILLNESS: This is a 64 years old female patient with past medical history as mentioned below [facility] near [facility] and atypical chest pain. Her symptoms started this morning when she was at work, sitting on her desk, started having right lower back/right lateral chest pain, dull aching pain, mild to moderate, associated with dizziness and lightheadedness and lasted for few minutes. Initially, she got better but later on, pain came back and she feels dizzy again and lightheaded. She denied loss of consciousness. She mentioned that she took her blood pressure and it was 69/47. She denied anterior chest pain or shortness of breath. She denied sweating, fever orchills. She denied abdominal pain, nausea or vomiting. She denied urinary symptoms. She had a history of descending thoracic aortic aneurysm as well history of CAD status post stents. In the emergency department, patient's pressure has been stable. She has been afebrile, heart rate stable. EKG revealed normal sinus rhythm with low voltage, no evidence of cardiac arrhythmias or acute schema changes. Troponin was negative x 1. Chest x-ray was unremarkable. CTA chest showed findings consistent with chronic focal dissection with aneurysmal dilatation versus chronic/subacute perforated ulcer without any surrounding inflammatory changes or active bleeding. ED physician contacted vascular surgeon Dr. Guzman who reviewed the CTA that was done on 10/10/2024 and stated that there is no significant change on today's CTA compared to previous CTAs. Patient is being admitted for observation overnight. Medical History[1] Surgical History[2] Family History[3] Social History Socioeconomic History Marital status: Single Spouse name: Not on file Number of children: Not on file Years of education: Not on file Highest education level: Not on file Occupational History Not on file Tobacco Use Smoking status: Never Passive exposure: Never Smokeless tobacco: Never Substance and Sexual Activity Alcohol use: Never Drug use: Never Sexual activity: Not on file Other Topics Concern Not on file Social History Narrative Not on file Social Drivers of Health Financial Resource Strain: Not on file Food Insecurity: Not on file Transportation Needs: Not on file Physical Activity: Not on file Stress: Not on file Social Connections: Not on file Intimate Partner Violence: Not on file Housing Stability: Not on file Current Home medications: Medications Ordered Prior to Encounter[4] Review of systems: Constitutional: Negative for chills, diaphoresis, fatigue and fever. HENT: Negative for congestion, ear discharge, ear pain, hearing loss, rhinorrhea and sneezing. Eyes: Negative for pain, discharge and itching. Respiratory: Negative for cough, chest tightness, shortness of breath. Negative for apnea, choking,wheezing and stridor. Cardiovascular: Reported atypical right lateral chest pain, negative palpitations and leg swelling. Gastrointestinal: Negative for abdominal distention, abdominal pain, blood in stool, constipation, diarrhea and nausea. Endocrine: Negative for cold intolerance, heat intolerance and polydipsia. Genitourinary: Negative for difficulty urinating, dysuria, flank pain, frequency and hematuria. Musculoskeletal: Negative for arthralgias, back pain and gait problem. Neurological: Negative for dizziness, seizures, syncope, facial asymmetry, speech difficulty, weakness and headaches. Psychiatric/Behavioral: Negative for behavioral problems, confusion and hallucinations. Vital signs: Visit Vitals BP 131/71 Pulse 53 Temp 36 C (96.8 F) (Temporal) Resp 15 Physical examination: General: Awake, alert, oriented x3, no distress, cooperative. HEENT: EOM intact, PERRLA. Neck: Supple, no JVD, no masses, no lymphadenopathy. Chest: Normal breath sounds bilateral, good chest expansion, no wheezes, no crackles, no rhonchi. Heart: Regular rate and rhythm, S1-S2 normal, no murmur, no gallops. Abdomen: Soft, nontender, no organomegaly, no ascites, no guarding or rigidity. Neurological: Alert and oriented x3, cranial nerves are intact, normal power and tone of 4 limbs. Skin: No lesions, no skin rash. Warm and dry. Musculoskeletal: Normal, atraumatic, no obvious deformities. Legs: No leg edema, no clubbing or cyanosis. Psych: Appropriate mood and behavior. LABS: Lab Results Component Value Date WBC 3.7 (L) 10/17/2024 HGB 12.3 10/17/2024 HCT 37.0 10/17/2024 MCV 98 10/17/2024 PLT 220 10/17/2024 Lab Results Component Value Date GLUCOSE 113 (H) 10/17/2024 CALCIUM 9.7 10/17/2024 NA 137 10/17/2024 K 4.3 10/17/2024 CO2 25 10/17/2024 CL 104 10/17/2024 BUN 26 (H) 10/17/2024 CREATININE 1.28 (H) 10/17/2024 Lab Results Component Value Date ALT 11 10/17/2024 AST 19 10/17/2024 ALKPHOS 70 10/17/2024 BILITOT 0.4 10/17/2024 Imaging: Procedure Component Value Units Date/Time CT angio chest abdomen pelvis [[id number]] Collected: 10/17/24 1255 Order Status: Completed Updated: 10/17/24 1509 Narrative: Interpreted By: Hunter Torres, STUDY: CT ANGIO CHEST ABDOMEN PELVIS; 10/17/2024 12:36 pm INDICATION: Signs/Symptoms:ABD PAIN/NEAR SYNCOPE/ HX OF DEEP AORTIC ULCERATION. COMPARISON: None. ACCESSION NUMBER(S): [id number] ORDERING CLINICIAN: JESUS LA TECHNIQUE: CT of the chest, abdomen, and pelvis was performed. Contiguous axial images were obtained at 3 mm slice thickness through the chest, abdomen and pelvis. Coronal and sagittal reconstructions at 3 mm slice thickness were performed. 70 ML of Omnipaque 350 was administered intravenously without immediate complication. Images performed before and after IV contrast administration. Postcontrast acquisitions performed in the FINDINGS: CHEST: LUNG/PLEURA/LARGE AIRWAYS: No lung masses, pulmonary nodules or consolidations are present. There is no pleural effusion or pneumothorax. VESSELS: Eccentric outpouching of the descending thoracic aorta beyond the intima measures a proximally 5.7 cm in craniocaudal dimension. The aorta measures 3.3 cm at this level. There is no surrounding inflammatory changes or stranding or bleeding. Scattered atherosclerotic calcifications of the remainder of the visualized abdominal aorta. The ascending thoracic aorta is intact. The branch vessels are patent with scattered atherosclerotic calcifications. Iliac vasculature demonstrates scattered atherosclerotic calcifications without definite flow-limiting stenosis. The mesenteric artery origins are patent. No narrowing of the bilateral renal arteries origin. No large pulmonary central embolus on this limited examination. HEART: Normal size. There is no pericardial effusion. MEDIASTINUM AND KATI: No mediastinal, hilar or axillary lymphadenopathy is present. Esophagus: Within normal limits. CHEST WALL AND LOWER NECK: Within normal limits. The visualized thyroid gland appears within normal limits. ABDOMEN: LIVER: The liver is normal in size without evidence of focal liver lesions. BILE DUCTS: The intrahepatic and extrahepatic ducts are not dilated. GALLBLADDER: No calcified stones. No wall thickening. PANCREAS: The pancreas appears unremarkable. SPLEEN: The spleen is normal in size. ADRENAL GLANDS: Bilateral adrenal glands appear normal. KIDNEYS AND URETERS: The kidneys are normal in size and enhance symmetrically. No hydroureteronephrosis or nephroureterolithiasis is identified. Scattered bilateral cysts. PELVIS: BLADDER: The urinary bladder appears normal without abnormal wall thickening. REPRODUCTIVE ORGANS: No pelvic masses. BOWEL: The stomach, small and large bowel are normal in appearance without wall thickening or obstruction. The small and large bowel are normal in caliber and demonstrate no wall thickening. The appendix is not definitely visualized. There is however no pericecal stranding or fluid. PERITONEUM/RETROPERITONEUM/LYMPH NODES: No ascites or free air, no fluid collection. No enlarged mesenteric lymph nodes. BONE AND SOFT TISSUE: No suspicious osseous lesions are identified. Moderate to marked L2-L3 discogenic degenerative changes. Impression: Eccentric outpouching of the descending thoracic aorta beyond the intima measures a proximally 5.7 cm in craniocaudal dimension. The aorta measures 3.3 cm at this level. There is no surrounding inflammatory changes or stranding or bleeding. 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 MACRO: None Signed by: Hunter Torres 10/17/2024 3:08 PM Dictation workstation: [id number] XR chest 1 view [[id number]] Collected: 10/17/241109 Order Status: Completed Updated: 10/17/241109 Narrative: Interpreted By: Jeffrey Patel, STUDY: XR CHEST 1 VIEW INDICATION: Signs/Symptoms:CHEST PAIN. COMPARISON: None ACCESSION NUMBER(S): [id number] ORDERING CLINICIAN: JESUS LA FINDINGS: No consolidation, effusion, edema, or pneumothorax. Heart size within normal limits. Impression: No evidence of acute intrathoracic abnormality. Signed by: Jeffrey Patel 10/17/2024 11:09 AM Dictation workstation: [id number] Assessment/Plan Assessment & Plan #1 near syncopal episode/atypical chest pain: EKG was unremarkable. Troponin was negative. Chest x-ray showed no acute findings. Patient's blood pressure improved and she has been asymptomatic since arrival to ED. Plan: Observation to telemetry floor, bedrest, cardiac monitoring, repeat troponin at6 PM tonight and 6 AM tomorrow morning, consult cardiology/vascular surgery, orthostatic vitals tomorrow morning, Tylenol as needed, IV fluids, repeat CBC and BMP tomorrow morning. #2 history of descending aortic aneurysm: CTA angio of the chest reviewed as above. Vascular surgery stated that there is no significant change from the CTA chest that was done on 10/10/2024. Plan as above, observation, consult vascular surgery/cardiology. #3 hypertension: Blood pressure improved after arrival to ED. Plan to resume amlodipine and losartan. #4 hyperlipidemia: Continue statins. #5 DVT prophylaxis: Subcu Lovenox. MDM: Moderate complexity, time spent is 61 minutes. Easton García MD 10/17/24 4:48 PM [1] Past Medical History: Diagnosis Date Bradycardia Hyperlipidemia Hypertension Penetrating atherosclerotic ulcer of aorta SVT (supraventricular tachycardia) ([facility] [2] Past Surgical History: Procedure Laterality Date CORONARY ANGIOPLASTY WITH STENT PLACEMENT HYSTERECTOMY [3] No family history on file. [4] No current facility-administered medications on file prior to encounter. Current Outpatient Medications on File Prior to Encounter Medication Sig Dispense Refill amLODIPine (Norvasc) 10 mg tablet Take 1 tablet (10 mg) by mouth once daily at bedtime. aspirin 81 mg EC tablet Take 1 tablet (81 mg) by mouth once daily at bedtime. atorvastatin (Lipitor) 40 mg tablet Take 1 tablet (40 mg) by mouth once daily at bedtime. calcium carbonate (CALCIUM 600 ORAL) Take 1 tablet by mouth once daily. cholecalciferol (Vitamin D-3) 25 mcg (1,000 units) capsule Take 1 capsule (25 mcg) by mouth once daily at bedtime. cyclobenzaprine (Flexeril) 10 mg tablet Take 1 tablet (10 mg) by mouth 3 times a day as needed for muscle spasms. ferrous sulfate 325 (65 Fe) mg EC tablet Take 1 tablet by mouth every other day. Do not crush, chew, or split. losartan (Cozaar) 50 mg tablet Take 1 tablet (50 mg) by mouth once daily at bedtime. MAGNESIUM GLYCINATE ORAL Take 500 mg by mouth once daily at bedtime. [facility] Phone: [phone]) 432-525304-17-2025 Physician Emergency department Note* Jesus La MD - 10/17/2024 11:59 AM EDT Chief Complaint: NEAR SYNCOPE This is 64-year-old female who had some right sided abdominal pain that radiated up into the right side of the chest. He felt very dizzy and lightheaded and apparently her blood pressure had dropped down to 66 systolic. Apparently she has had multiple episodes of syncope and near syncope very similar to this. He is also had a cardiac stent in the past and has been diagnosed with aortic ulcerationhas [facility] She had an CT angio just this quarter and itwas stable and did not require any intervention. She denies any rectal bleeding or abdominal pain in fact all of her symptoms are completely resolved at this time. Review of Systems Constitutional: Positive for fatigue. Negative for chills and fever. HENT: Negative for congestion, sore throat and trouble swallowing. Eyes: Negative for photophobia, pain and redness. Respiratory: Negative for cough and shortness of breath. Cardiovascular: Positive for chest pain. Negative for palpitations and leg swelling. Gastrointestinal: Positive for abdominal pain and nausea. Negative for diarrhea and vomiting. Genitourinary: Negative for dysuria and hematuria. Musculoskeletal: Positive for myalgias. Neurological: Positive for dizziness, weakness and light-headedness. Hematological: Negative. Psychiatric/Behavioral: Negative. All other systems reviewed and are negative. Physical Exam Vitals reviewed. Constitutional: General: She is not in acute distress. Appearance: Normal appearance. She is not toxic-appearing. Comments: Is asymptomatic currently vital signs are stable she [place] Coma Scale 15 there is no focal neurologic deficits there is no dysarthria has no chest pain or abdominal pain or dizziness currently HENT: Head: Normocephalic and atraumatic. Nose: Nose normal. Mouth/Throat: Mouth: Mucous membranes are moist. Pharynx: Oropharynx is clear. Eyes: Extraocular Movements: Extraocular movements intact. Conjunctiva/sclera: Conjunctivae normal. Pupils: Pupils are equal, round, and reactive to light. Cardiovascular: Rate and Rhythm: Normal rate. Pulses: Normal pulses. Heart sounds: No murmur heard. Pulmonary: Effort: Pulmonary effort is normal. Breath sounds: Normal breath sounds. Abdominal: General: There is no distension. Palpations: Abdomen is soft. There is no mass. Tenderness: There is no abdominal tenderness. There is no right CVA tenderness, left CVA tendernessor rebound. Musculoskeletal: General: No deformity. Normal range of motion. Cervical back: Normal range of motion and neck supple. Right lower leg: No edema. Left lower leg: No edema. Skin: General: Skin is warm and dry. Capillary Refill: Capillary refill takes less than 2 seconds. Findings: No erythema or rash. Neurological: General: No focal deficit present. Mental Status: She is oriented to person, place, and time. GCS: GCS eye subscore is 4. GCS verbal subscore is 5. GCS motor subscore is 6. Cranial Nerves: Cranial nerves 2-12 are intact. No dysarthria. Sensory: Sensation is intact. No sensory deficit. Motor: Motor function is intact. No weakness. Psychiatric: Mood and Affect: Mood normal. Behavior: Behavior normal. Labs Reviewed CBC WITH AUTO DIFFERENTIAL - Abnormal Result Value WBC 3.7 (*) nRBC 0.0 RBC 3.78 (*) Hemoglobin 12.3 Hematocrit 37.0 MCV 98 MCH 32.5 MCHC 33.2 RDW 11.6 Platelets 220 Neutrophils % 48.4 Immature Granulocytes %, Automated 0.0 Lymphocytes % 38.3 Monocytes % 11.7 Eosinophils % 1.1 Basophils % 0.5 Neutrophils Absolute 1.78 Immature Granulocytes Absolute, Automated 0.00 Lymphocytes Absolute 1.41 Monocytes Absolute 0.43 Eosinophils Absolute 0.04 Basophils Absolute 0.02 BASIC METABOLIC PANEL - Abnormal Glucose 113 (*) Sodium 137 Potassium 4.3 Chloride 104 Bicarbonate 25 Anion Gap 12 Urea Nitrogen 26 (*) Creatinine 1.28 (*) eGFR 47 (*) Calcium 9.7 PROTIME-INR - Abnormal Protime 12.7 (*) INR 1.1 URINALYSIS WITH REFLEX CULTURE AND MICROSCOPIC - Abnormal Color, Urine Colorless (*) Appearance, Urine Clear Specific [place], Urine 1.034 pH, Urine 7.0 Protein, Urine NEGATIVE Glucose, Urine Normal Blood, Urine NEGATIVE Ketones, Urine NEGATIVE Bilirubin, Urine NEGATIVE Urobilinogen, Urine Normal Nitrite, Urine NEGATIVE Leukocyte Esterase, Urine NEGATIVE MAGNESIUM - Normal Magnesium 2.03 LIPASE - Normal Lipase 30 Narrative: Venipuncture immediately after or during the administration of Metamizole may lead to falsely low results. Testing should be performed immediately prior to Metamizole dosing. HEPATIC FUNCTION PANEL - Normal Albumin 4.7 Bilirubin, Total 0.4 Bilirubin, Direct 0.1 Alkaline Phosphatase 70 ALT 11 AST 19 Total Protein 7.1 LACTATE - Normal Lactate 1.2 Narrative: Venipuncture immediately after or during the administration of Metamizole may lead to falsely low results. Testing should be performed immediately prior to Metamizole dosing. APTT - Normal aPTT 31 Narrative: The APTT is no longer used for monitoring Unfractionated Heparin Therapy. For monitoring Heparin Therapy, use the Heparin Assay. TROPONIN I, HIGH SENSITIVITY - Normal Troponin I, High Sensitivity 4 Narrative: Less than 99th percentile of normal range cutoff- Female and children under 18 years old <14 ng/L; Male <21 ng/L: Negative Repeat testing should be performed if clinically indicated. Female and children under 18 years old 14-50 ng/L; Male 21-50 ng/L: Consistent with possible cardiac damage and possible increased clinical risk. Serial measurements may help to assess extent of myocardial damage. >50 ng/L: Consistent with cardiac damage, increased clinical risk and myocardial infarction. Serial measurements may help assess extent of myocardial damage. NOTE: Children less than 1 year old may have higher baseline troponin levels and results should be interpreted in conjunction with the overall clinical context. NOTE: Troponin I testing is performed using a different testing methodology at [facility] than at other [facility]. Direct result comparisons should only be made within the same method. B-TYPE NATRIURETIC PEPTIDE - Normal BNP 19 Narrative: <100 pg/mL - Heart failure unlikely 100-299 pg/mL - Intermediate probability of acute heart failure exacerbation. Correlate with clinical context and patient history. >=300 pg/mL - Heart Failure likely. Correlate with clinical context and patient history. BNP testing is performed using different testing methodology at [facility] than at other [facility]. Direct result comparisons should only be made within the same method. D-DIMER, VTE EXCLUSION - Normal D-Dimer, Quantitative VTE Exclusion 320 Narrative: The VTE Exclusion D-Dimer assay is reported in ng/mL Fibrinogen Equivalent Units (FEU). Per natural gas treating unit operator's instructions for use, a value of less than 500 ng/mL (FEU) may help to exclude DVT or PE in outpatients when the assay is used with a clinical pretest probability assessment.([facility] must utilize and document eCalc 'Wells Score Deep Vein Thrombosis Risk' for DVT exclusion only. Emergency Department should utilize Guidelines for Emergency Department Use of the VTE Exclusion D-Dimer and Clinical Pretest probability assessment model for DVT or PE exclusion.) URINALYSIS WITH REFLEX CULTURE AND MICROSCOPIC Narrative: The following orders were created for panel order Urinalysis with Reflex Culture and Microscopic. Procedure Abnormality Status --------- ------ Urinalysis with Reflex C...[[id number]] Abnormal Final result Extra Urine Hopson Tube[[id number]] In process Please view results for these tests on the individual orders. EXTRA URINE HOPSON TUBE CT angio chest abdomen pelvis Final Result Eccentric outpouching of the descending thoracic aorta beyond the intima measures a proximally 5.7 cm in craniocaudal dimension. The aorta measures 3.3 cm at this level. There is no surrounding inflammatory changes or stranding or bleeding. 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 MACRO: None Signed by: Hunter Torres 10/17/2024 3:08 PM Dictation workstation: [id number] XR chest 1 view Final Result No evidence of acute intrathoracic abnormality. Signed by: Jeffrey Patel 10/17/2024 11:09 AM Dictation workstation: [id number] Procedures Medical Decision Making Differential diagnosis include TIA cardiac arrhythmia vasovagal episode syncope near syncope leakage from her aortic ulceration. The plan at this time would be to hold cardiac workup at this time andif normal then a CT angios to confirm that there is no change in her aortic ulceration. Lactate wasnegative troponin was normal BMP was normal. Lipase was 30 liver function test was normal metabolicpanel creatinine 1.28 and a BUN of 26 her D-dimer was normal calcium was 2.03 INR was 1.1 white count was 3.7 with a normal hemoglobin hematocrit. Chest x-ray was negative. Patient developed no hypotension no chest pain or abdominal pain arrhythmia or abnormalities while here in the emergency depart ment. CT angio shows a similar atherosclerotic ulceration of the aorta similar to the past Dr. Guzman vascular surgery was consulted and reviewed the film and felt that this is unchanged and this wasnot surgical. Her vascular surgeon at [facility] was attempted to be contacted unsuccessfully also.The recommendation at this time is given the that the atherosclerotic ulceration is unchanged with a near syncopal episode and history of cardiac disease should be admitted for observation at this time. Amount and/or Complexity of Data Reviewed ECG/medicine tests: independent interpretation performed. Details: Of lead EKG showed sinus rhythm at 47/min with a right axis deviation there is poor R waveprogression but no acute ST segment elevations or depressions at this time ED Course as of 10/17/24 1631 Jeanne Oct 17, 2024 1309 Blood Urea Nitrogen(!): 26 [JS] ED Course User Index [JS] Jesus La MD Diagnoses as of 10/17/24 1631 Near syncope Atherosclerotic ulcer of aorta Jesus La MD 10/17/24 1632 [facility] Work Phone: [phone] 154-879904-17-2025 Emergency department Note* Jesus La MD - 10/17/2024 11:59 AM EDT Chief Complaint: NEAR SYNCOPE This is 64-year-old female who had some right sided abdominal pain that radiated up into the right side of the chest. He felt very dizzy and lightheaded and apparently her blood pressure had dropped down to 66 systolic. Apparently she has had multiple episodes of syncope and near syncope very similar to this. He is also had a cardiac stent in the past and has been diagnosed with aortic ulcerationhas been followed [facility]. She had an CT angio just this quarter and itwas stable and did not require any intervention. She denies any rectal bleeding or abdominal pain in fact all of her symptoms are completely resolved at this time. Review of Systems Constitutional: Positive for fatigue. Negative for chills and fever. HENT: Negative for congestion, sore throat and trouble swallowing. Eyes: Negative for photophobia, pain and redness. Respiratory: Negative for cough and shortness of breath. Cardiovascular: Positive for chest pain. Negative for palpitations and leg swelling. Gastrointestinal: Positive for abdominal pain and nausea. Negative for diarrhea and vomiting. Genitourinary: Negative for dysuria and hematuria. Musculoskeletal: Positive for myalgias. Neurological: Positive for dizziness, weakness and light-headedness. Hematological: Negative. Psychiatric/Behavioral: Negative. All other systems reviewed and are negative. Physical Exam Vitals reviewed. Constitutional: General: She is not in acute distress. Appearance: Normal appearance. She is not toxic-appearing. Comments: Is asymptomatic currently vital signs are stable she [place] Coma Scale 15 there is no focal neurologic deficits there is no dysarthria has no chest pain or abdominal pain or dizziness currently HENT: Head: Normocephalic and atraumatic. Nose: Nose normal. Mouth/Throat: Mouth: Mucous membranes are moist. Pharynx: Oropharynx is clear. Eyes: Extraocular Movements: Extraocular movements intact. Conjunctiva/sclera: Conjunctivae normal. Pupils: Pupils are equal, round, and reactive to light. Cardiovascular: Rate and Rhythm: Normal rate. Pulses: Normal pulses. Heart sounds: No murmur heard. Pulmonary: Effort: Pulmonary effort is normal. Breath sounds: Normal breath sounds. Abdominal: General: There is no distension. Palpations: Abdomen is soft. There is no mass. Tenderness: There is no abdominal tenderness. There is no right CVA tenderness, left CVA tendernessor rebound. Musculoskeletal: General: No deformity. Normal range of motion. Cervical back: Normal range of motion and neck supple. Right lower leg: No edema. Left lower leg: No edema. Skin: General: Skin is warm and dry. Capillary Refill: Capillary refill takes less than 2 seconds. Findings: No erythema or rash. Neurological: General: No focal deficit present. Mental Status: She is oriented to person, place, and time. GCS: GCS eye subscore is 4. GCS verbal subscore is 5. GCS motor subscore is 6. Cranial Nerves: Cranial nerves 2-12 are intact. No dysarthria. Sensory: Sensation is intact. No sensory deficit. Motor: Motor function is intact. No weakness. Psychiatric: Mood and Affect: Mood normal. Behavior: Behavior normal. Labs Reviewed CBC WITH AUTO DIFFERENTIAL - Abnormal Result Value WBC 3.7 (*) nRBC 0.0 RBC 3.78 (*) Hemoglobin 12.3 Hematocrit 37.0 MCV 98 MCH 32.5 MCHC 33.2 RDW 11.6 Platelets 220 Neutrophils % 48.4 Immature Granulocytes %, Automated 0.0 Lymphocytes % 38.3 Monocytes % 11.7 Eosinophils % 1.1 Basophils % 0.5 Neutrophils Absolute 1.78 Immature Granulocytes Absolute, Automated 0.00 Lymphocytes Absolute 1.41 Monocytes Absolute 0.43 Eosinophils Absolute 0.04 Basophils Absolute 0.02 BASIC METABOLIC PANEL - Abnormal Glucose 113 (*) Sodium 137 Potassium 4.3 Chloride 104 Bicarbonate 25 Anion Gap 12 Urea Nitrogen 26 (*) Creatinine 1.28 (*) eGFR 47 (*) Calcium 9.7 PROTIME-INR - Abnormal Protime 12.7 (*) INR 1.1 URINALYSIS WITH REFLEX CULTURE AND MICROSCOPIC - Abnormal Color, Urine Colorless (*) Appearance, Urine Clear Specific [place], Urine 1.034 pH, Urine 7.0 Protein, Urine NEGATIVE Glucose, Urine Normal Blood, Urine NEGATIVE Ketones, Urine NEGATIVE Bilirubin, Urine NEGATIVE Urobilinogen, Urine Normal Nitrite, Urine NEGATIVE Leukocyte Esterase, Urine NEGATIVE MAGNESIUM - Normal Magnesium 2.03 LIPASE - Normal Lipase 30 Narrative: Venipuncture immediately after or during the administration of Metamizole may lead to falsely low results. Testing should be performed immediately prior to Metamizole dosing. HEPATIC FUNCTION PANEL - Normal Albumin 4.7 Bilirubin, Total 0.4 Bilirubin, Direct 0.1 Alkaline Phosphatase 70 ALT 11 AST 19 Total Protein 7.1 LACTATE - Normal Lactate 1.2 Narrative: Venipuncture immediately after or during the administration of Metamizole may lead to falsely low results. Testing should be performed immediately prior to Metamizole dosing. APTT - Normal aPTT 31 Narrative: The APTT is no longer used for monitoring Unfractionated Heparin Therapy. For monitoring Heparin Therapy, use the Heparin Assay. TROPONIN I, HIGH SENSITIVITY - Normal Troponin I, High Sensitivity 4 Narrative: Less than 99th percentile of normal range cutoff- Female and children under 18 years old <14 ng/L; Male <21 ng/L: Negative Repeat testing should be performed if clinically indicated. Female and children under 18 years old 14-50 ng/L; Male 21-50 ng/L: Consistent with possible cardiac damage and possible increased clinical risk. Serial measurements may help to assess extent of myocardial damage. >50 ng/L: Consistent with cardiac damage, increased clinical risk and myocardial infarction. Serial measurements may help assess extent of myocardial damage. NOTE: Children less than 1 year old may have higher baseline troponin levels and results should be interpreted in conjunction with the overall clinical context. NOTE: Troponin I testing is performed using a different testing methodology at [facility] than at other [facility]. Direct result comparisons should only be made within the same method. B-TYPE NATRIURETIC PEPTIDE - Normal BNP 19 Narrative: <100 pg/mL - Heart failure unlikely 100-299 pg/mL - Intermediate probability of acute heart failure exacerbation. Correlate with clinical context and patient history. >=300 pg/mL - Heart Failure likely. Correlate with clinical context and patient history. BNP testing is performed using different testing methodology at [facility] than at other [facility]. Direct result comparisons should only be made within the same method. D-DIMER, VTE EXCLUSION - Normal D-Dimer, Quantitative VTE Exclusion 320 Narrative: The VTE Exclusion D-Dimer assay is reported in ng/mL Fibrinogen Equivalent Units (FEU). Per natural gas treating unit operator's instructions for use, a value of less than 500 ng/mL (FEU) may help to exclude DVT or PE in outpatients when the assay is used with a clinical pretest probability assessment.(AEMR must utilize and document eCalc 'Wells Score Deep Vein Thrombosis Risk' for DVT exclusion only. Emergency Department should utilize Guidelines for Emergency Department Use of the VTE Exclusion D-Dimer and Clinical Pretest probability assessment model for DVT or PE exclusion.) URINALYSIS WITH REFLEX CULTURE AND MICROSCOPIC Narrative: The following orders were created for panel order Urinalysis with Reflex Culture and Microscopic. Procedure Abnormality Status --------- ------ Urinalysis with Reflex C...[[id number]] Abnormal Final result Extra Urine Hopson Tube[[id number]] In process Please view results for these tests on the individual orders. EXTRA URINE HOPSON TUBE CT angio chest abdomen pelvis Final Result Eccentric outpouching of the descending thoracic aorta beyond the intima measures a proximally 5.7 cm in craniocaudal dimension. The aorta measures 3.3 cm at this level. There is no surrounding inflammatory changes or stranding or bleeding. 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 MACRO: None Signed by: Hunter Torres 10/17/2024 3:08 PM Dictation workstation: [id number] XR chest 1 view Final Result No evidence of acute intrathoracic abnormality. Signed by: Jeffrey Patel 10/17/2024 11:09 AM Dictation workstation: [id number] Procedures Medical Decision Making Differential diagnosis include TIA cardiac arrhythmia vasovagal episode syncope near syncope leakage from her aortic ulceration. The plan at this time would be to hold cardiac workup at this time andif normal then a CT angios to confirm that there is no change in her aortic ulceration. Lactate wasnegative troponin was normal BMP was normal. Lipase was 30 liver function test was normal metabolicpanel creatinine 1.28 and a BUN of 26 her D-dimer was normal calcium was 2.03 INR was 1.1 white count was 3.7 with a normal hemoglobin hematocrit. Chest x-ray was negative. Patient developed no hypotension no chest pain or abdominal pain arrhythmia or abnormalities while here in the emergency depart [facility]. CT angio shows a similar atherosclerotic ulceration of the aorta similar to the past Dr. Guzman vascular surgery was consulted and reviewed the film and felt that this is unchanged and this wasnot surgical. Her vascular surgeon at [facility] was attempted to be contacted unsuccessfully also.The recommendation at this time is given the that the atherosclerotic ulceration is unchanged with a near syncopal episode and history of cardiac disease should be admitted for observation at this time. Amount and/or Complexity of Data Reviewed ECG/medicine tests: independent interpretation performed. Details: Of lead EKG showed sinus rhythm at 47/min with a right axis deviation there is poor R waveprogression but no acute ST segment elevations or depressions at this time ED Course as of 10/17/24 1631 Jeanne Oct 17, 2024 1309 Blood Urea Nitrogen(!): 26 [JS] ED Course User Index [JS] Jesus La MD Diagnoses as of 10/17/24 1631 Near syncope Atherosclerotic ulcer of aorta Jesus La MD 10/17/24 1632 * Mary King RN - 10/17/2024 10:31 AM EDT Picked up from work Right flank pain, rt shoulder pain, dizziness, nausea, sweaty Had whole back pain with sxs BP was low at work 60s systolic when she checked it Denies CP, SOB No n/v/d upon arrival Hx 1 stent, [facility] 1(182) 428-510904-17-2025 Emergency department Triage note* Mary King RN - 10/17/2024 10:31 AM EDT Picked up from work Right flank pain, rt shoulder pain, dizziness, nausea, sweaty Had whole back pain with sxs BP was low at work 60s systolic when she checked it Denies CP, SOB No n/v/d upon arrival Hx 1 stent, aortic aneurysm [facility] Work Phone: 1(699) 716-305109-26-2024 History of Present illness Narrative* Judi Ledezma MD - 03/28/2024 2:20 PM EDT PRIMARY CARE PHYSICIAN: Renato Bonilla MD [address] [place] [address] REFERRING PHYSICIAN: Jeff Wray [address] [facility] [address] Patient Care Team: Renato Bonilla Chi as PCP - General (Gerontology) Jeff Wray MD as Specialty Machinery Engineer (Cardiology) Lynn Richardson as Specialty Machinery Engineer (Vascular Surgery) CHIEF COMPLAINT: Evaluation of arrhythmia HISTORY OF PRESENT ILLNESS: Ms. Ryan is a 63 year old female who presents today for evaluation of arrhythmia and syncope. Couple episodes last year in 2022 where she passed out. She would lose urinary continence. A tilt table test at [facility] in August, she was found to have vasovagal syncope. She pays attention to hydration, is able to abort episodes when the symptoms start by lying down and putting her feet up. She has CAD that was diagnosed in late 2022, also was found to have descending thoracic aortic aneurysm. The aneurysm is followed by Vascular [facility] at [facility]. [facility] She denies chest pain, shortness of breath, orthopnea, palpitatio ns, PND. Perhaps mild shortness of breath with more than moderate degrees of physical activity. In July 2023 had an event, did not pass out but did not feel right. She was hospitalized and her heart rate was intermittently rapid. She has a FitBit, but otherwise not aware of the arrhythmia. Sometimes heart rates are 160s bpm range, other times 130s - 140s bpm. Episodes of heart rates > 120bpm occur fairly often. She is not certain of the duration of the episodes. Sometimes she has slow heart rates in the high 30s bpm range, about 37 bpm. Normal heart rate at rest for her is in the mid40s bpm range at the lowest. She thinks stress might be playing a role. Her mother was ill and she was taking care of her, which was stressful. Her mother in February 2024, and since then the heart rates have not been as high, only 120s - 130s bpm range. I have confirmed and edited as necessary, the PFSH and ROS obtained by others. PAST MEDICAL HISTORY Diagnosis Date Abnormal EKG Adjustment disorder with depressed mood Anemia Aortic pseudoaneurysm (HCC) Bradycardia CAD (coronary artery disease) Chronic back pain Depression Dyslipidemia Essential hypertension History of IBS History of percutaneous coronary intervention 03/27/2024 Left ventricular hypertrophy Numbness and tingling in both hands and feet Palpitations Personal history of colonic polyps Colon polyps Raynaud's phenomenon Restless legs syndrome Spasm of muscle Stenosis of right coronary artery SVT (supraventricular tachycardia) (HCC) Syncope and collapse Unspecified constipation Constipation Unspecified hemorrhoids without mention of complication Hemorrhoids PAST SURGICAL HISTORY Procedure Laterality Date APPENDECTOMY COLONOSCOPY FLX DX W/COLLJ SPEC WHEN PFRMD 07/03/2004 Colonoscopy INSERT INTRACORONARY STENT 06/15/2023 coronary artery stent LAPS ABD PRTM&OMENTUM DX W/WO SPEC BR/WA SPX Laparoscopy SALPINGO-OOPHORECTOMY COMPL/PRTL UNI/BI SPX Salpingo-oophorectomy TONSILLECTOMY PRIMARY/SECONDARY <AGE 12 Tonsillectomy TOTAL ABDOMINAL HYSTERECT W/WO RMVL TUBE OVARY Hysterectomy, [facility] SOCIAL HISTORY Social History Tobacco Use Smoking status: Former Current packs/day: 0.00 Average packs/day: 1 pack/day for 20.0 years (20.0 ttl pk-yrs) Types: Cigarettes Quit date: 10/2021 Years since quittin.4 Smokeless tobacco: Never Substance Use Topics Alcohol use: No Comment: quit 1990 Drug use: No FAMILY HISTORY Problem Relation Age of Onset Hypertension Mother Cancer Mother lymphoma-stomach and liver, CVA, RA, HTN Cancer Father Abdomen, bladder Cancer Paternal Grandfather ? where Prostate Cancer Other uncle ALLERGIES: ALLERGIES Allergen Reactions Beta-Blockers (Beta* Other: See Comments Raynauds phenom MEDICATIONS: cholecalciferol (VITAMIN D) 1,000 unit tab tablet Take 1,000 Units by mouth once daily. amLODIPine (NORVASC) 10 mg tablet Take 10 mg by mouth once daily. atorvastatin (LIPITOR) 40 mg tablet Take 1 tablet by mouth every afternoon. losartan (COZAAR) 50 mg tablet Take 50 mg by mouth once daily. aspirin, enteric coated (ASPIRIN, ENTERIC COATED) 81 mg EC tablet Take 81 mg by mouth once daily. clopidogrel (PLAVIX) 75 mg tablet Take 75 mg by mouth once daily. ferrous sulfate (FEROSUL) 325 mg (65 mg iron) tablet Take 325 mg by mouth every other day. cyclobenzaprine 10 mg tablet Take 10 mg by mouth once daily. Taking one tablet daily for spasm CALCIUM 500 MG TAB Take one(1) tablet two(2) times daily. REVIEW OF SYSTEMS: Review of Systems Constitutional: Negative for chills and fever. Respiratory: Negative for cough, hemoptysis, sputum production and shortness of breath. Cardiovascular: Negative for chest pain, palpitations, orthopnea, claudication, leg swelling and PND. Gastrointestinal: Negative for abdominal pain, blood in stool, melena, nausea and vomiting. Genitourinary: Negative for dysuria and hematuria. Musculoskeletal: Negative for falls and myalgias. Skin: Negative for rash. Neurological: Positive for dizziness. Negative for focal weakness, seizures and loss of consciousness. PHYSICAL EXAMINATION: BP 130/68 Pulse 62 Ht 5' 3 (1.60m) Wt 130 lb (59.0kg) SpO2 100% BMI 23.03 kg/(m^2). Physical Exam Vitals reviewed. Constitutional: General: She is not in acute distress. Appearance: Normal appearance. HENT: Head: Normocephalic and atraumatic. Cardiovascular: Rate and Rhythm: Normal rate and regular rhythm. Heart sounds: Normal heart sounds, S1 normal and S2 normal. No murmur heard. No friction rub. Pulmonary: Effort: Pulmonary effort is normal. No respiratory distress. Breath sounds: Normal breath sounds. No wheezing, rhonchi or rales. Musculoskeletal: Cervical back: Neck supple. Right lower leg: No edema. Left lower leg: No edema. Skin: General: Skin is warm and dry. Neurological: General: No focal deficit present. Mental Status: She is alert and oriented to person, place, and time. Psychiatric: Mood and Affect: Mood normal. Behavior: Behavior normal. Thought Content: Thought content normal. CARDIOVASCULAR MEDICINE TESTING: Electrocardiogram: Poor data quality with baseline artifact, possibly impacting interpretation; possibly low atrial ectopic rhythm 60 bpm; first-degree AV block (WI 210 ms); normal QRS duration 82 ms; QTc 416 ms I have personally reviewed the Electrocardiogram. 1. SVT (supraventricular tachycardia) (HCC) - ICD9: 427.89, ICD10: I47.10 (primary diagnosis) 2. Palpitations - ICD9: 785.1, ICD10: R00.2 3. Syncope and collapse - ICD9: 780.2, ICD10: R55 4. Vasovagal syncope - ICD9: 780.2, ICD10: R55 5. Bradycardia - ICD9: 427.89, ICD10: R00.1 6. Coronary artery disease involving [place] coronary artery of [place] heart without angina pectoris- ICD9: 414.01, ICD10: I25.10 7. History of percutaneous coronary intervention - ICD9: V15.1, ICD10: Z98.61 IMPRESSION: Ms. Ryan has a history of syncope that is most likely vasovagal etiology. Reviewed with her the preventative measures, including avoidance of dehydration or hypovolemia. She was already aware of thestrategy of maintaining adequate hydration. Regarding the tachycardia, she has been found to have brief and asymptomatic episodes of tachycardia that seem to be consistent with SVT. I would like to have better quality copies of the cardiac monitoring to better evaluate the heart rhythm during the arrhythmia. But overall there is no need to treat the asymptomatic and self-limited SVT. The arrhythmia does not seem to be consistent with atrial fibrillation or atrial flutter, so we do not need at th is point to be concerned with stroke prevention. Other forms of SVT including atrial tachycardia are not known to increase stroke risk. I had a detailed discussion with Ms. Ryan regarding my evaluation and recommendations. After our discussion, Ms. Ryan expressed her understanding and I answered all her questions to her apparent satisfaction. PLAN AND RECOMMENDATIONS: Continue with current plan of care from EP standpoint. No specific treatment necessary for the brief and asymptomatic SVT episodes. If she is documented to have atrial fibrillation or atrial flutter in the future, she would need irene considered for stroke prevention such as with oral anticoagulation therapy. Have better quality copy of the Holter monitoring sent from [facility]. Return if symptoms worsen or fail to improve. Judi Ledezma MD 03/28/2024 Medical Decision Making: Problems: Moderate: New problem with uncertain prognosis Data: Unique source(s) for external note(s) reviewed: 1 Unique test result(s) reviewed: 3+ Unique test(s) ordered: 1 Risk: Moderate: Moderate risk from testing/treatment, Drug management and Decision on minor surgery w/ risk factors Medical Decision Making Level: 4 - Moderate [facility]* Radha Flaherty MA - 03/28/2024 2:13 PM EDT Patient has no cardiac complaints today. [facility] Note* Radha Flaherty MA - 03/28/2024 2:13 PM EDT Patient has no cardiac complaints today. documented in this [facility] History of Present illness Narrative* PATRICK Vasquez - 03/07/2024 8:45 AM EDT Amie Ryan is a 63 y.o. female who was seen at the [facility] on 03/07/2024 for follow up of descending thoracic JOAQUINA. This was found incidentally during a work-up for syncopla even 04/2023. She denies current back, chest or abdominal pain. Since she was last seen she has under gone atilt table test for her syncopal episodes. She states she has had 4 syncopal episodes since August. Otherwise she is feeling good. She continues to not smoke. She is compliant with AA and statin. Patients current medications and allergies reviewed. A complete review of systems was otherwise negative. Physical Exam revealed: Vitals: 03/07/24 0840 BP: 116/67 Pulse: 69 SpO2: 100% Weight: 59 kg (130 lb) Height: 1.626 m (5' 4) Heart: RRR without murmur Lungs: CTA bilaterally Abd: No pulsatile masses or HSM Pulses: Right carotid - 2+, no bruit heard Left carotid - 2+, no bruit heard RIght radial - 2+ Left radial - 2+ RIght femoral - 2+ Right DP - 2+ Right PT - 2+ Left femoral - 2+ Left DP - 2+ Left PT - 2+ Extremities: without erythema, edema, induration. Bilateral good capillary refill, warm, pink. No ulcerations present. IMAGING REVIEWED: CTA Chest Formal read pending, imaging reviewed with Dr. Richardson. ASSESSMENT/PLAN: Amie Ryan is a pleasant 63 y.o. female with descending thoracic aortic JOAQUINA. She is asymptomatic and bp is welling controlled. CT demonstrates stable JOAQUINA. We will have her return in 6 months with repeat CTA. Madeline Razo CNP [facility] V[facility] Surgery a [facility] Instructions* Patient Instructions* Ann Owens RN - 03/07/2024 8:45 AM EDT CTA Scan Instructions - Be sure to have your required blood work done within 30 days prior to your scan. If you have yourblood work done outside the [facility] system, please call [phone] to inform us where you went so that we may obtain the results. - If you are not on any fluid restrictions from your doctor, increase the amount of water you drinkthe evening before your test. You should continue to drink water the day of your scan. This will help flush the contrast medicine from your body when the exam is finished. - If you have an allergy to IVP dye or shellfish, be sure to take your pre- medications Benadryl (Diphenhydramine) and Prednisone as directed prior to your scan. - If you have any questions regarding your scheduled CTA please call radiology at [phone]. documented in this encounterOSU [facility] Telephone encounter Note* Telephone Encounter - Heath Parish LPN - 02/27/2024 3:19 PM EDT . [facility]-27[facility] Miscellaneous Notes* Telephone Encounter - Heath Rhodes LPN - 02/27/2024 3:19 PM EDT . documented in this [facility]Mer[facility] Procedure [facility]03-14-2024 History of Present illness Narrative* Christelle Mariano, PAC - 09/14/2023 9:15 AM EDT Amie Ryan is a 62 y.o. female who was seen at the [facility] on 09/14/2023 for follow up of descending thoracic JOAQUINA. This was found incidentally during a work-up for syncopla even 04/2023. She denies current back, chest or abdominal pain. Since last seen she has undergone LHC with stent of the RCA via Right radial access. She is awaiting a tilt table test to assist in work up of her syncope. Otherwise she feels well today. She has quit smoking. On DAPT and statin. Patients current medications and allergies reviewed. A complete review of systems was otherwise negative. Physical Exam revealed: Vitals: 09/14/23 0909 BP: 122/73 Pulse: 71 SpO2: 100% Weight: 60.4 kg (133 lb 1.6 oz) Heart: RRR without murmur Lungs: CTA bilaterally Abd: No pulsatile masses or HSM Pulses: Right carotid - 2+, no bruit heard Left carotid - 2+, no bruit heard RIght radial - 2+ Left radial - 2+ Right DP - 2+ Right PT - 2+ Left DP - 2+ Left PT - 2+ Extremities: without erythema, edema, induration. Bilateral good capillary refill, warm, pink. No ulcerations present. IMAGING REVIEWED: CTA reviewed with attending: Thoracic Aorta: Grossly stable broad-based saccular/mushroom-shaped penetrating atherosclerotic ulcer seen noted at the left anterolateral aspect of the mid descending segment. Its neck extends over an approximate distance of 3.5 cm and measures 19 mm in depth (series 11, image 92). The overall aortic diameter measures 3.5 cm at that location. Arch Branches: Normal Abdominal Aorta: Mild atherosclerosis. Normal dimensions. Abdominal Aortic Branches: Atherosclerosis without significant stenoses Iliac Arterial System: Atherosclerosis without significant stenoses ASSESSMENT/PLAN: Descending thoracic aortic JOAQUINA: Amie Ryan is a pleasant 62 y.o. female with descending thoracic aortic JOAQUINA. She is asymptomatic and bp well controlled. Her CT demonstrates stable JOAQUINA. We will have her return in 6 months for another surveillance scan. Christelle Mariano PA-C Division of Vascular Diseases and Surgery -- I saw and evaluated the patient independent from the Physician's Financial Assistant. I provided a substantive portion of the care for this patient. I personally performed all aspects of the medical decision making for this encounter. I have reviewed and verified this documentation and it accurately reflectsour care. The PA and I spoke with the patient and provided written and verbal instructions for the patient. The PA has scribed limited portions of this note for cohesiveness and continuity. The abovenote has been reviewed and I agree with the assessment and plan. Follow-up arrangements were made prior to the patient being discharged from the clinic. Doing well. No pain. Bps controlled. Reviewed CTA - no changes in diameter. Will follow up. She reports that she is still undergoing work up for her prior syncopal episode, and despite Holterprior, she has noted HR into the 130-170s at rest at home from her smart watch. She has not set up any appointments with EP, and I strongly recommended that she get an appointment with them in the near future. We discussed how some of this can be causing her syncope. She understands and will proceed. We sent referral for EP. Repeat CT in 6 months. Lynn Richardson MD Department of Vascular Surgery [facility] 09/14/2023 documented in this encounterOSU [facility]03[facility] Instructions* Patient Instructions* Evita Hodge RN - 09/14/2023 9:15 AM EDT CTA Scan Instructions - Be sure to have your required blood work done within 30 days prior to your scan. If you have yourblood work done outside the [facility] system, please call [phone] to inform us where you went so that we may obtain the results. - If you are not on any fluid restrictions from your doctor, increase the amount of water you drinkthe evening before your test. You should continue to drink water the day of your scan. This will help flush the contrast medicine from your body when the exam is finished. - Hold all Metformin (Glucophage) drugs and any combination drugs using this medication the eveningbefore AND the morning of your scan. You may take the rest of your normal medicines with water before your scan. - If you have an allergy to IVP dye or shellfish, be sure to take your pre- medications Benadryl (Diphenhydramine) and Prednisone as directed prior to your scan. - Do not eat or drink anything except water for 4 hours before your scan. - Bring a list of your current medications with you to your scan. - If you have any questions regarding your scheduled CTA please call radiology at [phone]. [facility] Discharge summary Author Erik Hylton [facility] July 27, 2023 1:12pm Note Date/Time July 27, 2023 1 :09pm [facility] Medical Records Department [address] [place] [address] Instructions for Home/Discharge Instructions 07/27/23 1051 MR#: [id number] Acct: [id number] Name: AMIE RYAN Rep #:[id number] : 1960 62 From: Erik Weinberg PCP: Dr. Renato Bonilla MD Status:ADM I NO Discharge Instructions Diet Discharge Diet: 2000 mg Sodium Diet Activity Discharge Activity: Return to Normal Activity Weight Bearing Status: Weight bearing as tolerated Dressing / Incision Call your doctor if you observe: Fever of 101 or Higher, Coldness, Increased Pain, Numbness or Tingling, Change in Color, Inability to urinate, Inability to have a bowel movement, Shortness of breath, Dizziness, Fainting spells, Swellingin the ankles, Chest pain, Prolonged hiccupping, Increased palpitations (irregular heartbeat) and Calf discomfort Follow Up Care When: IN 2 WEEKS Test Results: Test results from this visit will be discussed in further detail at your follow- up appointment, if applicable. Discharge Plan Admission Admit Date/Time: 07/26/23 23:47 Primary Reason for Your Visit: Dizziness near syncope. Attending Provider: Erik Hylton Primary Care Provider: Renato Bonilla Chi Consulting Providers: Lubna Horton Instructions Additional Instructions / Restrictions: Follow-up in [facility] in August in regards to the thoracic descending aortic artery aneurysm Discharge Orders/Prescriptions Prescriptions: New potassium chloride 20 mEq Tablet,Er Particles/Crystals 40 meq PO DAILYCM 2 Days Qty: 4 0RF meclizine [Antivert] 25 mg tablet,chewable 25 mg PO Q6H PRN PRN (Reason: dizziness) Qty: 20 0RF Continued magnesium oxide 400 mg magnesium tablet 400 mg PO DAILY cyclobenzaprine 10 mg tablet 10 mg PO DAILY PRN (Reason: muscle spasm) vitamin B complex Tablet 1 tab PO DAILY atorvastatin 40 mg tablet 40 mg PO QHS Qty: 30 2RF losartan 50 mg tablet 50 mg PO DAILY amlodipine 10 mg tablet 10 mg PO DAILY Qty: 90 3RF cholecalciferol (vitamin D3) [Vitamin D3] 25 mcg (1,000 unit) tablet 25 mcg PO DAILY aspirin [Adult Aspirin Regimen] 81 mg tablet,delayed release (DR/EC) 81 mg PO DAILY clopidogrel 75 mg tablet 75 mg PO .COMPLEX Qty: 90 3RF Rx Instructions: 75 mg orally 4 tablets by mouth ALL at once for loading dose on Sfywye62/14/24, then ONE tablet by mouth DAILY. Stop Brilinta Monday night 05/15. Referrals / Follow Up: Renato Bonilla Chi, MD [Primary Care Provider] - Within 2 Weeks Disposition Disposition (needs filled in before D/C Order can be placed): Home, Self Care 07/27/23 1312<Electronically signed by Erik Hylton MD>Erik Hylton MD CC: Dr. Lubna Horton MD; Dr. Renato Bonilla MD ~ Signed [facility] Work Phone: 1(259) 530-474301-25-2024 Discharge summary Author Niecy Joseph [facility] July 27, 2023 12:40am Note Date/Time July 26, 2023 1 1:10pm [facility] Medical Records Department [address] [place] [address] Emergency Department Summary 07/26/23 MR#: [id number] Acct: [id number] Name: AMIE RYAN Rep #:[id number] : 1960 62 From: Niecy Joseph MD PCP: Dr. Renato Bonilla MD Status:ADM I NO Location: [place] [address] HPI History of Present Illness Chief Complaint: Syncope Informant: patient Narrative Narrative: Patient presents with lightheadedness and near syncope. Symptoms started this evening after taking a shower. Patient's primary concern is these are the same symptoms she had before she required a cardiac stent in June. Patient was initially seen and evaluated in April. 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 She was evaluated by surgery, cardiology,and vascular surgery here who recommended follow-up with a tertiary care center. [facility] the meantime patient was brought in for cardiac cath in June and found tohave an 80% mid RCA lesion that required stenting. Patient states that she had not had any syncopal episodes or near syncope in the last several months but hersymptoms did recur again this afternoon. [facility] Medical History Abnormal ECG Abnormal findings diagnostic imaging of heart and coronary circulation (06/07/23) Anemia Anxiety Atherosclerotic heart disease of [place] coronary artery without angina pectoris (06/07/23) Back pain Blood in stool Bradycardia Cardiology follow-up encounter Easy bruising Encounter for screening for malignant neoplasm of colon Excessive bleeding Fatigue Former smoker Guaiac positive stools History of echocardiogram History of IBS History of irregular heartbeat History of stress test Hyperlipidemia Hypertension Hypokalemia Lightheadedness Major depressive disorder, recurrent episode, in full remission Muscle spasm Numbness and tingling in both hands Post-menopausal Pseudoaneurysm of aorta Restless legs Shortness of breath on exertion 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) Syncope Vitamin D deficiency Wears contact lenses Home Medications magnesium oxide 400 mg PO DAILY 11/12/21 [History Last Taken Unknown] cyclobenzaprine 10 mg tablet 10 mg PO DAILY PRN muscle spasm 05/11/23 [History Last Taken Unknown] atorvastatin 40 mg tablet 40 mg PO QHS #30 tabs 05/17/23 [Rx Last Taken Unknown] vitamin B complex 1 tab PO DAILY 05/17/23 [History Last Taken Unknown] cholecalciferol (vitamin D3) 25 mcg (1,000 unit) tablet (Vitamin D3) 25 mcg PO DAILY 05/31/23 [History Last Taken Unknown] aspirin 81 mg tablet,delayed release (Adult Aspirin Regimen) 81 mg PO DAILY 06/12/23 [History Last Taken 06/15/23] clopidogrel 75 mg tablet 75 mg PO .COMPLEX #90 tabs 07/14/23 [Rx Last Taken Unknown] amlodipine 10 mg tablet 10 mg PO DAILY #90 tabs 07/17/23 [Rx Last Taken Unknown] losartan 50 mg tablet 50 mg PO DAILY 07/17/23 [History Last Taken Unknown] Allergy/AdvReac Type Severity Reaction Status Date / Time No Known Allergies Allergy Verified 07/26/23 19:35 Family History Mother Hypertension Cancer Arthritis CVA (cerebral vascular accident) Stomach ulcer Father Cancer bladder Grandmother Cancer Uncle Prostate carcinoma Surgical History Hx of colonoscopy Hx of hysterectomy Stented coronary artery (06/15/23) Social History Smoking Status: Former smoker alcohol intake: former year quit: 1990 substance use type: does not use caffeine: Yes Type: carbonated beverages Number of servings: 1 ROS ROS ED Constitutional Constitutional ED: Denies chills or fever(s) Eyes Eyes: Denies change in vision or discharge from eye(s) ENT ENT ED: Denies discharge from eye(s), rhinorrhea or sore throat Cardiovascular Cardiovascular: Denies chest pain or palpitations Respiratory/Chest Respiratory/Chest: Denies cough or dyspnea Gastrointestinal Gastrointestinal: Denies abdominal pain, nausea or vomiting Musculoskeletal Musculoskeletal: Denies back pain or extremity pain Integumentary Denies Abrasions or rash Neurologic Neurologic: Denies headache(s) or weakness Psychiatric Psychiatric: Denies anxiety or depression Allergic/Immunologic Allergic/Immunologic ED: Denies lip swelling or urticaria EXAM Physical Exam Const Vital Signs: 07/26/23 19:33 07/26/23 19:51 07/26/23 19:51 Temperature 96.9 F L Temperature Source Temporal Pulse Rate 60 Pulse Rate [Lying] Pulse Rate [Sitting (for 1 minute prior to obtaining)] Pulse Rate [Standing (for 1 minute prior to obtaining)] Respiratory Rate 16 Respiratory Effort Normal Respiratory Pattern Normal Blood Pressure 155/77 H Blood Pressure [Lying] Blood Pressure [Sitting (for 1 minute prior to obtaining)] Blood Pressure [Standing (for 1 minute prior to obtaining)] Blood Pressure Mean 103 Blood Pressure Mean [Lying] Blood Pressure Mean [Sitting (for 1 minute prior to obtaining)] Blood Pressure Mean [Standing (for 1 minute prior to obtaining)] Pulse Ox 100 Oxygen Delivery Method Room Air Room Air 07/26/23 20:57 07/26/23 21:01 07/26/23 22:04 Temperature Temperature Source Pulse Rate 66 60 Pulse Rate [Lying] 66 Pulse Rate [Sitting (for 1 minute prior to obtaining)] 53 L Pulse Rate [Standing (for 1 minute prior to obtaining)] 68 Respiratory Rate 17 17 Respiratory Effort Respiratory Pattern Blood Pressure 145/78 H 134/74 H Blood Pressure [Lying] 145/78 H Blood Pressure [Sitting (for 1 minute prior to obtaining)] 146/73 H Blood Pressure [Standing (for 1 minute prior to obtaining)] 135/81 H Blood Pressure Mean 100 94 Blood Pressure Mean [Lying] 100 Blood Pressure Mean [Sitting (for 1 minute prior to obtaining)] 97 Blood Pressure Mean [Standing (for 1 minute prior to obtaining)] 99 Pulse Ox 98 90 Oxygen Delivery Method Room Air Room Air Positive well nourished and well developed General Appearance ED: well developed HEENT Reports moist mucous membranes Eyes EOMs intact bilaterally Chest Wall inspection of chest normal and palpation of chest normal Resp normal respiratory effort and clear to auscultation bilaterally Cardio regular rate and regular rhythm GI non-tender Palpation: soft Extremity normal to inspection Neuro oriented x3 and no sensory deficits noted Motor Exam: strength 5/5 throughout Skin no rashes or lesions noted MDM MDM MDM Narrative Medical decision making narrative: Patient placed on equipment monitor phototypesetting. EKG obtained to evaluate for cardiac arrhythmia/ischemia. Chest x-ray obtained to evaluate for acute lung pathology,cardiac size, or mediastinal abnormality. Labwork obtained to evaluate for leukocytosis, anemia, and electrolyte derangement. Given the patient's history of thoracic aneurysm a CTA of the chest was obtained. History & Record Review Discussion w/independent historian: Patient Additional record(s) reviewed:: Prior inpatient record, Prior outpatient record,Prior ED visit and Prior labs Lab Data Attestation: I reviewed the patient's lab results. Labs: Laboratory Results - last 24 hr 07/26/23 19:58 WBC 4.5 RBC 3.86 L Hgb 12.0 Hct 37.5 MCV 97.2 MCH 31.1 MCHC 32.0 RDW Std Deviation 42.8 RDW Coeff of Yulia 12.0 Plt Count 244 MPV 9.4 Immature Gran % (Auto) 0.200 Neut % (Auto) 50.6 Lymph % (Auto) 36.6 Eaton % (Auto) 10.2 H Eos % (Auto) 1.5 Baso % (Auto) 0.9 Absolute Neuts (auto) 2.3 Absolute Lymphs (auto) 1.66 Nucleated RBC % 0 Sodium 138 Potassium 3.8 Chloride 108 H Carbon Dioxide 27.0 Anion Gap 3 L BUN 22 H Creatinine 0.94 Estim Creat Clear Calc 54.96 Est GFR (MDRD) Af Amer 78 Est GFR (MDRD) Non-Af 64 BUN/Creatinine Ratio 23.4 H Glucose 105 Calcium 9.7 Troponin I High Sens 10 POC Glucose 79 Radiography Chest X-Ray - ED: 1 View, Read by ED Physician, Normal, Heart, Lungs and Mediastinum Diagnostic Testing: Clinical Impression(s) from Imaging Studies Chest CTA 07/26/23 20:46 IMPRESSION: Abnormal descending thoracic aorta where there is a segment of approximately 6 cm length that appears to represent a large pseudoaneurysm with a very thin overlying wall. No current evidence of leak. COPD. Electronically Signed: Balaji Waller MD at 22:33 EST , Chest X-Ray 07/26/23 20:55 IMPRESSION: There are findings consistent with COPD. There is no evidence of acute chest disease. Electronically Signed: Balaji Waller MD at 21:50 EST , EKG Initial EKG: Attestation: I personally reviewed and interpreted this EKG as follows: Interpretation: Sinus Bradycardia (Sinus bradycardia 59 bpm. PVCs noted. Lateral T inversions noted similar to prior study in June 2023.) Differential Diagnosis Chest pain/SOB: pneumothorax Reason(s) pneumothorax less likely: Positive for bilateral breath sounds and [employer] withhout PTX, pneumonia Reason(s) pneumonia lesslikely: Positive for no infiltrate on CXR and no elevation in WBC count and aortic dissection Reason(s) Aortic dissection less likely:: Positive for normal vascular exam and other (No evidence of dissection on CTA chest.) Treatment and Re-Evaluation :: Patient did take 1 baby aspirin this morning. She is given 3 additional baby aspirin. She just recently switched from Brilinta to Plavix. CBC was normal white count 4.5 with a hemoglobin of 12.0. Differential unremarkable. Chemistry studies significant for BUN 22. Initial troponin normal at 10. Portable chest x-ray shows chronic changes with no evidence of focal infiltrate. Radiology interpretation reviewed and agrees. CTA of the chest reveals abnormal descending thoracic aorta with a segment of approximately6 cm in length appearing to represent a pseudoaneurysm. No evidence of leak. Measurements of the pseudoaneurysm today are compared to prior study from April. This appears largely unchanged. With patient having near syncope I will discuss with hospitalist regarding observation overnight for monitoring of cardiac enzymes and vital signs. Patient is comfortable this plan. Discharge Plan Triage Chief Complaint: Syncope ED Provider: Niecy Joseph Dx/Rx/DC Orders Clinical Impression: Near syncope Prescriptions: No Action magnesium oxide 400 mg magnesium tablet 400 mg PO DAILY cyclobenzaprine 10 mg tablet 10 mg PO DAILY PRN (Reason: muscle spasm) vitamin B complex Tablet 1 tab PO DAILY atorvastatin 40 mg tablet 40 mg PO QHS Qty: 30 2RF losartan 50 mg tablet 50 mg PO DAILY amlodipine 10 mg tablet 10 mg PO DAILY Qty: 90 3RF cholecalciferol (vitamin D3) [Vitamin D3] 25 mcg (1,000 unit) tablet 25 mcg PO DAILY aspirin [Adult Aspirin Regimen] 81 mg tablet,delayed release (DR/EC) 81 mg PO DAILY clopidogrel 75 mg tablet 75 mg PO .COMPLEX Qty: 90 3RF Rx Instructions: 75 mg orally 4 tablets by mouth ALL at once for loading dose on Zwdtbm67/14/24, then ONE tablet by mouth DAILY. Stop Brilinta Monday night 05/15. Primary Care Provider: Renato Bonilla Chi Referrals: Renato Bonilla Chi, MD [Primary Care Provider] - Disposition Disposition: Acute Care Hospital [facility] What to do if you have Problems For any increased pain, shortness of breath, bleeding, nausea or vomiting, chestpain, or any unexpected problems, contact your Primary Care Provider. Call [facility] ([phone]) or report to the closest Emergency Room. Call 911 if necessary. 07/27/23 0040 <Electronically signed by Niecy Joseph MD> Cosigner Signature (if applicable): CC: Dr. Renato Bonilla MD ~ Signed [facility] Work Phone: 1(397) 475-951201-25-2024 History and physical note Author Lubna Horton [facility] July 27, 2023 12:34am Note Date/Time July 26, 2023 1 1:31pm [facility] Medical Records Department [address] [place] [id number] H&P Exam - Hospitalist 07/26/23 2326 MR#: [id number] Acct: [id number] Name: MAIE RYAN Rep #:[id number] : 1960 62 From: Lubna Horton MD PCP: Dr. Renato Bonilla MD Status:ADM I NO Location: [facility] [id number] HPI - General General Date of Admission: 07/26/23 Date of Service: 07/26/23 Chief Complaint: Lightheadedness, near syncope. HPI Narrative The patient is a 62 y/o F w/ PMHx: CAD s/p PCI, HTN, HLD, Chronic anemia, Pseudoaortic aneurysm, Chronic bradycardia, Valvular Heart Disease, Former tobacco use, history of 3 syncopal events with lightheadedness just prior to thesyncopal event usually awakening in less than a minute with no chest discomfort or dyspnea prior to the event prompting recent cardiac catheterization with eventual PCI who now represents to the [facility] ED on 07/26/2023 with history of recurrent similar symptoms on day prior to presentation just after taking a shower with lightheadedness and near syncope but no LOC prompting ED evaluation.She notes prior with this she would have BL LE tingling, persistent dizziness, nausea and emesis but currently she notes only mild residual headache on the topand posterior regions, mild and improving. She notes she had just taken a hot shower at her mother's home as she recently loss access to natural gas thus she has not had heated water. Workup in the ED included T98.1, heart rate 58, BP 129/74, respiratory rate 14, 96% on room air, CBC with WBC 4.5, human 12, MCV 97.2, platelet 244 without marked shift, BMP with chloride 108, BUN/creatinine 22/0.94 otherwise unremarkable, troponin initial 10 with repeat delta pending upon requested evaluation of patient, chest x-ray with COPD type changes with noacute cardiopulmonary findings, CTPA with abnormal descending thoracic aorta with a segment of approximately 6 cm length that appears to represent a large pseudoaneurysm with a very thin overlying wall with no evidence of any leak and COPD type changes, EKG with sinus bradycardia with no acute evidence of ischemia. [facility] Medical History Abnormal ECG Abnormal findings diagnostic imaging of heart and coronary circulation (06/07/23) Anemia Anxiety Atherosclerotic heart disease of [place] coronary artery without angina pectoris (06/07/23) Back pain Blood in stool Bradycardia Cardiology follow-up encounter Easy bruising Encounter for screening for malignant neoplasm of colon Excessive bleeding Fatigue Former smoker Guaiac positive stools History of echocardiogram History of IBS History of irregular heartbeat History of stress test Hyperlipidemia Hypertension Hypokalemia Lightheadedness Major depressive disorder, recurrent episode, in full remission Muscle spasm Numbness and tingling in both hands Post-menopausal Pseudoaneurysm of aorta Restless legs Shortness of breath on exertion 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) Syncope Vitamin D deficiency Wears contact lenses Home Medications magnesium oxide 400 mg PO DAILY 11/12/21 [History Last Taken Unknown] cyclobenzaprine 10 mg tablet 10 mg PO DAILY PRN muscle spasm 05/11/23 [History Last Taken Unknown] atorvastatin 40 mg tablet 40 mg PO QHS #30 tabs 05/17/23 [Rx Last Taken Unknown] vitamin B complex 1 tab PO DAILY 05/17/23 [History Last Taken Unknown] cholecalciferol (vitamin D3) 25 mcg (1,000 unit) tablet (Vitamin D3) 25 mcg PO DAILY 05/31/23 [History Last Taken Unknown] aspirin 81 mg tablet,delayed release (Adult Aspirin Regimen) 81 mg PO DAILY 06/12/23 [History Last Taken 06/15/23] clopidogrel 75 mg tablet 75 mg PO .COMPLEX #90 tabs 07/14/23 [Rx Last Taken Unknown] amlodipine 10 mg tablet 10 mg PO DAILY #90 tabs 07/17/23 [Rx Last Taken Unknown] losartan 50 mg tablet 50 mg PO DAILY 07/17/23 [History Last Taken Unknown] Allergy/AdvReac Type Severity Reaction Status Date / Time No Known Allergies Allergy Verified 07/26/23 19:35 Family History Mother Hypertension Cancer Arthritis CVA (cerebral vascular accident) Stomach ulcer Father Cancer bladder Grandmother Cancer Uncle Prostate carcinoma Surgical History Hx of colonoscopy Hx of hysterectomy Stented coronary artery (06/15/23) Social History household members: spouse Smoking Status: Former smoker alcohol intake: former year quit: 1990 substance use type: does not use caffeine: Yes Type: carbonated beverages Number of servings: 1 ROS ROS Narrative Admission Review of Systems: CONSTITUTIONAL: No weight loss, fever, chills, + weakness or fatigue. HEENT: + Mild headache. Eyes: No visual loss, blurred vision, double vision or yellow sclerae. Ears, Nose, Throat: No hearing loss, sneezing, congestion, runny nose or sore throat. SKIN: No rash or itching, lesions, wounds. CARDIOVASCULAR: + Near syncope w/ LH/dizziness. No chest pain, chest pressure orchest discomfort, palpitations, edema, orthopnea. RESPIRATORY: No shortness of breath, cough or sputum, wheezing, hemoptysis. GASTROINTESTINAL: No anorexia, nausea, vomiting or diarrhea, abdominal pain, melena, BRBPR. GENITOURINARY: No dysuria, frequency, urgency or retention. NEUROLOGICAL: + LH/Dizziness, near syncope, headache. No paralysis, ataxia, numbness or tingling in the extremities, focal weakness, change in bowel or bladder control, seizure. MUSCULOSKELETAL: No muscle, back pain, joint pain or stiffness. HEMATOLOGIC: + anemia, easy bleeding/bruising. LYMPHATICS: No enlarged nodes. No history of splenectomy. PSYCHIATRIC: + Hx anxiety. ENDOCRINOLOGIC: No reports of sweating, cold or heat intolerance. No polyuria orpolydipsia. ALLERGIES: No history of asthma, hives, eczema or rhinitis. Vital Signs Vital Signs Vital Signs: 07/26/23 19:33 07/26/23 19:51 07/26/23 19:51 Temperature 96.9 F L Temperature Source Temporal Pulse Rate 60 Pulse Rate [Lying] Pulse Rate [Sitting (for 1 minute prior to obtaining)] Pulse Rate [Standing (for 1 minute prior to obtaining)] Respiratory Rate 16 Respiratory Effort Normal Respiratory Pattern Normal Blood Pressure 155/77 H Blood Pressure [Lying] Blood Pressure [Sitting (for 1 minute prior to obtaining)] Blood Pressure [Standing (for 1 minute prior to obtaining)] Blood Pressure Mean 103 Blood Pressure Mean [Lying] Blood Pressure Mean [Sitting (for 1 minute prior to obtaining)] Blood Pressure Mean [Standing (for 1 minute prior to obtaining)] Pulse Ox 100 Oxygen Delivery Method Room Air Room Air 07/26/23 20:57 07/26/23 21:01 07/26/23 22:04 Temperature Temperature Source Pulse Rate 66 60 Pulse Rate [Lying] 66 Pulse Rate [Sitting (for 1 minute prior to obtaining)] 53 L Pulse Rate [Standing (for 1 minute prior to obtaining)] 68 Respiratory Rate 17 17 Respiratory Effort Respiratory Pattern Blood Pressure 145/78 H 134/74 H Blood Pressure [Lying] 145/78 H Blood Pressure [Sitting (for 1 minute prior to obtaining)] 146/73 H Blood Pressure [Standing (for 1 minute prior to obtaining)] 135/81 H Blood Pressure Mean 100 94 Blood Pressure Mean [Lying] 100 Blood Pressure Mean [Sitting (for 1 minute prior to obtaining)] 97 Blood Pressure Mean [Standing (for 1 minute prior to obtaining)] 99 Pulse Ox 98 90 Oxygen Delivery Method Room Air Room Air 07/26/23 23:14 07/26/23 23:15 Temperature 98.1 F Temperature Source Pulse Rate 58 L 58 L Pulse Rate [Lying] Pulse Rate [Sitting (for 1 minute prior to obtaining)] Pulse Rate [Standing (for 1 minute prior to obtaining)] Respiratory Rate 16 14 Respiratory Effort Respiratory Pattern Blood Pressure 123/75 H 129/74 H Blood Pressure [Lying] Blood Pressure [Sitting (for 1 minute prior to obtaining)] Blood Pressure [Standing (for 1 minute prior to obtaining)] Blood Pressure Mean 91 92 Blood Pressure Mean [Lying] Blood Pressure Mean [Sitting (for 1 minute prior to obtaining)] Blood Pressure Mean [Standing (for 1 minute prior to obtaining)] Pulse Ox 94 96 Oxygen Delivery Method Room Air Weight Weight: 133 lb 2 oz Body Mass Index (BMI) 22.8 Physical Exam Narrative Physical Examination: General: Awake, alert, oriented x 3 and cooperative, seated upright in the ED bed in no apparent distress, notes improved. Skin: Normal color, normal turgor, no icterus, no cyanosis. HEENT: AT/NC, EOMI, PERRLA, MMM, no carotid bruits or JVD noted. Lungs: CTA bilaterally, moderate effort, mild decrease BL bases, no rales, ronchi or wheezing. Heart: Bradycardic with regular rhythm; no gallop, rub audible. Abdomen: Soft, NTTP, ND, normal BS, no HSM. Extremities: No cyanosis, clubbing, or edema. Neurological: Patient awake, alert, oriented as noted, cognitive function intact; pupils equally reactive to light and accommodation, cranial nerves grossly normal, moving all 4 extremities, no focal deficits, strength improved, mildly globally decreased secondary to acute complaints. Psychiatric: Affect appears fatigued otherwise normal, no acute evidence of depressive or anxiety feelings but does have anxiety history. Results Lab / Micro Data 07/26/23 19:58 07/26/23 19:58 Labs: Laboratory Results - last 24 hr 07/26/23 19:58: WBC 4.5, RBC 3.86 L, Hgb 12.0, Hct 37.5, MCV 97.2, MCH 31.1, MCHC 32.0, RDW Std Deviation 42.8, RDW Coeff of Yulia 12.0, Plt Count 244, MPV 9.4, Immature Gran % (Auto) 0.200, Neut % (Auto) 50.6, Lymph % (Auto) 36.6, Eaton% (Auto) 10.2 H, Eos % (Auto) 1.5, Baso % (Auto) 0.9, Absolute Neuts (auto) 2.3,Absolute Lymphs (auto) 1.66, Nucleated RBC % 0, Sodium 138, Potassium 3.8, Chloride 108 H, Carbon Dioxide 27.0, Anion Gap 3 L, BUN 22 H, Creatinine 0.94, Estim Creat Clear Calc 54.96, Est GFR (MDRD) Af Amer 78, Est GFR (MDRD) Non-Af 64, BUN/Creatinine Ratio 23.4 H, Glucose 105, Calcium 9.7, Troponin I High Sens 10, POC Glucose 79 Imagaing Radiology Impression Chest CTA 07/26/23 20:46 IMPRESSION: Abnormal descending thoracic aorta where there is a segment of approximately 6 cm length that appears to represent a large pseudoaneurysm with a very thin overlying wall. No current evidence of leak. COPD. Electronically Signed: Balaji Waller MD at 22:33 EST , Chest X-Ray 07/26/23 20:55 IMPRESSION: There are findings consistent with COPD. There is no evidence of acute chest disease. Electronically Signed: Balaji Waller MD at 21:50 EST , Assessment & Plan Assessment/Plan (1) Near syncope: PLAN: Plan The patient is a 62 y/o F w/ PMHx: CAD s/p PCI, HTN, HLD, Chronic anemia, Pseudoaortic aneurysm, Chronic bradycardia, Valvular Heart Disease, Former tobacco use, history of 3 syncopal events with lightheadedness just prior to thesyncopal event usually awakening in less than a minute with no chest discomfort or dyspnea prior to the event prompting recent cardiac catheterization with eventual PCI who now represents to the [facility] ED on 07/26/2023 with history of recurrent similar symptoms on day prior to presentation just after taking a shower with lightheadedness and near syncope but no LOC prompting ED evaluation. #1. Recurrent Lightheadedness, Near Syncopal Event: EKG in ED w/ sinus bradycardic rhythm without evidence of acute ischemia, CXR w/ no acute cardiopulmonary findings, CTPA without acute findings and stable pseudoaneurysm per report, initial trop normal. Will admit to PCU, place on a monitored bed to assure no acute myocardial infarction with serial cardiac enzymes and EKGs. Willmaintain on fall precautions, obtain admission orthostatic to be cautious. If concerns arise including EKG changes, elevated troponin series low threshold to involve Cardiology service. 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 CT 04/30/23 Chase Lyndaradha with 5.1 cm long pseudoaneurysm of the mid descending aorta. Patient did have follow-up with vascular surgery Dr. Anderson and was eventually referred to tertiary facility. From discussion with ED and review ofrecords this image currently appears similar to previous. Encourage close earlyCT/vascular surgery continued evaluation/follow-up which currently she notes is planned for August at [facility]. #3. CAD: 06/18/2023 cardiac catheterization noted to be right dominant, left main with mild luminal irregularities, left anterior descending artery with mildluminal irregularities, circumflex artery with mild luminal irregularities, right coronary artery with mid RCA 80% stenosis with MARIYA to the mid RCA, will continue aspirin, Plavix, losartan, not on beta-tabatha therapy given chronic bradycardia. #4. Valvular heart disease: Mild concentric LVH, LV normal size, systolic EF 55to 60% with no regional wall motion abnormality, mild MV regurgitation, moderateTV regurgitation, mild to moderate AV regurgitation, trivial PV regurgitation. #5. Hypertension: Continue home regimen including losartan, amlodipine, PRN hydralazine. #6. Hyperlipidemia: Continue home statin regimen. #7. Anxiety: Per current list on a regimen, encourage continued outpatient follow-up as needed. #8. Restless leg syndrome: Patient uses per record cyclobenzaprine as needed. #9. Former tobacco use: Encourage continued tobacco cessation. #10. DVT Prophylaxis: Lovenox. #11. CODE status: Patient HCPOA and LW are not in place but her would be her decision maker if she was unable. Discussed CODE status at length including difference between FULL code, DNR-CCA and DNR-CC status. Following discussions about the differences in these status, requested Full Code status. Advanced Care Planning Face to Face Time: 16 minutes. Charges/Coding Visit Charges Inpatient E&M: 17269 Init Hosp L2 Procedures Hospitalists Procedures: 71730 Advncd Care Plan 30 Min 07/27/23 0034 <Electronically signed by Lubna Horton MD> Cosigner Signature (if applicable): CC: Dr. Lubna Horton MD; Dr. Renato Bonilla MD~ Signed [facility] Work Phone: 1(794) 672-589012-07-2023 History and physical note* Mariam Shapr MD - 06/08/2023 11:15 AM EST [facility] H&P Amie Ryan is a 62 y.o. female she was seen in consultation for evaluation of incidentally found descending thoracic OJAQUINA at the [facility]. Patient had incidentally [...] distress, no decreased breath sounds, no wheezes, norhonchi, no rales Abdominal: Soft. Normal appearance, normal [...] management with impulse control (patient is currently onblood pressure regimen), statin, and ASA. We will [...] controlled. In Apr she had episode of syncopeand during her work up was discovered to [...] its discovery. Given her current ongoing workup forher syncopy, I would like to bring her back in 2-3 months with repeat imaging to discuss the possibility of surgery. She understands. BP control is critical. Lynn Richardson MD 06/08/2023 [facility]12-07-2023 History and physical note* Mariam Sharp MD - 06/08/2023 11:15 AM EST [facility] H&P Amie Ryan is a 62 y.o. female she was seen in consultation for evaluation of incidentally found descending thoracic JOAQUINA at the [facility]. Patient had [...] distress, no decreased breath sounds, no wheezes, norhonchi, no rales Abdominal: Soft. Normal appearance, normal [...] management with impulse control (patient is currently onblood pressure regimen), statin, and ASA. We will [...] hx of hypertension, now well controlled. In Oct she had episode of syncopeand during her work up was discovered to [...] significant changes from her CT back in Oct vs now. We discussed the pathophysiology- the review of her imaging shows that this is likely chronic, and may have been present for quite a while prior to its discovery. Given her current ongoing workup forher syncopy, I would like to bring her back in 2-3 months with repeat imaging to discuss the possibility of surgery. She understands. BP control is critical. Lynn Richardson MD 06/08/2023 [facility] Instructions* Patient Instructions* Riana Avery RN - 06/08/2023 11:15 AM EST WILL BE SEEING DR. RICHARDSON IN TWO TO THREE MONTHS WITH IMAGING-PLEASE OBTAIN LABS PRIOR YOU ARE TO BEGIN ASPIRIN 81 MG BY MOUTH EVERY DAY CTA Scan Instructions - Be sure to have your required blood work done within 30 days prior to your scan. If you have yourblood work done outside the [facility] system, please call [phone] to inform us where you went so that we may obtain the results. - If you are not on any fluid restrictions from your doctor, increase the amount of water you drinkthe evening before your test. You should continue to drink water the day of your scan. This will help flush the contrast medicine from your body when the exam is finished. - Hold all Metformin (Glucophage) drugs and any combination drugs using this medication the eveningbefore AND the morning of your scan. You may take the rest of your normal medicines with water before your scan. - If you have an allergy to IVP dye or shellfish, be sure to take your pre- medications Benadryl (Diphenhydramine) and Prednisone as directed prior to your scan. - Do not eat or drink anything except water for 4 hours before your scan. - Bring a list of your current medications with you to your scan. - If you have any questions regarding your scheduled CTA please call radiology at [phone]. documented [facility] Evaluation note * Diagnosis Onset Date Resolution Status Stenosis of right coronary artery June 07, 2023 acute Syncope chronic Abnormal ECG chronic Coronary artery disease brick washer florin Dyslipidemia chronic Hypertension chronic Pseudoaneurysm of aorta brick washer florin Raynauds phenomenon chronic Stented coronary artery June 15, 2023 chronic Syncope chronic Near syncope resolved [facility] Work Phone: 1(154) 292-199612-04-2023 History and physical note Author Jeri Bennett [facility] June 05, 2023 7:23am Note Date/Time June 05, 2023 7 :22am [facility] Medical Records Department [address] [place] [id number] History & Physical Exam 06/05/23 0721 MR#: [id number] Acct: [id number] Name: RYANAMIE Rep #:[id number] : 1960 62 From: Jeri Bennett MD PCP: Dr. Renato Bonilla MD Status:REG S DC Location: [place] [address] History and Physical Date of Admission: 06/05/23 Date of Service: 05/17/23 MR#: [id number] Acct: [id number] Name: RYANAMIE GARZA Rep #: [id number] : 1960 Provider: Dr. Jeri Bennett MD Age/Sex: 62/F Location: [facility] Status: Signed Intake Vital Signs 02/17/2206:39 05/17/2311:41 05/17/2314:29 Height 5 ft 4 in 5 ft 4 in 5 ft 4 in Weight: 121 lb 122 lb BMI 20.7 20.9 BP 178/100 H 175/83 H Blood Pressure Location Rt brachial Rt brachial Position Sitting Sitting Respiration 16 16 Pulse 63 Pulse Source Auscultation Intake Visit Reasons: IRON DEFICIENCY ANEMIA Chief Complaint: anemia [employer] Supervisor Required: No Is patient in pain?: No Allergies No Known Allergies Allergy (Verified 05/17/23 14:30) Medications magnesium oxide 400 mg PO DAILY 11/12/21 [History Confirmed 05/17/23] cyclobenzaprine 10 mg tablet 10 mg PO DAILY PRN muscle spasm 05/11/23 [History Confirmed 05/17/23] ferrous sulfate 324 mg (65 mg iron) tablet,delayed release 324 mg PO DAILY 05/11/23 [History Confirmed 05/17/23] atorvastatin 40 mg tablet 40 mg PO QHS #30 tabs 05/17/23 [Rx Confirmed 05/17/23] losartan 25 mg tablet 25 mg PO DAILY 05/17/23 [History Confirmed 05/17/23] vitamin B complex 1 tab PO DAILY 05/17/23 [History Confirmed 05/17/23] PFSH Medical History Anemia Arthritis Back pain Blood in stool Bradycardia Easy bruising Encounter for screening for malignant neoplasm of colon Excessive bleeding Fatigue Former smoker Headache History of IBS Hyperlipidemia Hypertension Lightheadedness Major depressive disorder, recurrent episode, in full remission Muscle spasm Numbness and tingling in both hands Post-menopausal Pseudoaneurysm of aorta Restless legs Syncope Vitamin D deficiency Wears contact lenses Surgical History Hx of colonoscopy Hx of hysterectomy Family History Mother Hypertension Cancer Arthritis CVA (cerebral vascular accident) Stomach ulcerFather Cancer bladderGrandmother CancerUncle Prostate carcinoma Social History Smoking Status: Former smoker alcohol intake: former year quit: 1990 substance use type: does not use caffeine: Yes Type: carbonated beverages Number of servings: 1 HPI HPI HPI: 62 year-old female presents for EGD and colonoscopy due to anemia. Patient states in April she was hospitalized due to syncopal episode at [facility]. Patient's hemoglobin on last check was 9.6. Patient states at the time of her hospitalization she did have tarry stools at that time but states she also was taking quite a bit of Excedrin with aspirin for headaches patient has since stopped that does not take any ibuprofen and takes the Excedrin without the aspirin currently. Patient has started on iron as well so currently her stools are dark since taking the iron. Patient did have a colonoscopy in [address] Leach which was negative. Patient's bowel movements daily denies any blood, denies any abdominal pain/reflux/nausea/vomiting. Patient did also follow-up with cardiology today for follow-up from the hospitalization as well as Dr. 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 Patient states they were referring her to a tertiarycare facility due to the pseudoaneurysm. ROS General General: Yes fatigue; No weight change, appetite, colon cancer or breast cancer HEENT HEENT: No difficulty swallowing, eye injury, eye surgery, swollen glands or hoarseness Endo Endocrine: No thyroid disease, diabetes mellitus, thyroid cancer, Hair loss, heat intolerance or cold intolerance Skin Skin: No rash or changing moles Musc Musculoskeletal: Yes back problems; No arthritis, rheumatoid arthritis, gout or joint pain Cardio Cardiovascular: Yes high blood pressure and shortness of breat with exertion; No murmur, pacemaker, heart disease, atrial fibrillation, heart attack, heart stent, palpitations or chest pain Psych Psychiatric: No depression, anxiety or hearing voices Resp Respiratory: Yes shortness of breath, No sleep apnea, No cough, No COPD, No asthma, No emphysema and No wheezing Gastro Gastrointestinal: No abdominal pain, No nausea or vomiting, No diarrhea, No constipation, Yes blood in stool, No acid reflux, No hemorrhoids, No ulcers, No gallbladder problem and Yes black,tarry stools Harman Hematologic: No blood thinners, No blood disorders, No bleeding, Yes anemia and No blood clots Neuro Neurologic: Yes dizziness and Yes numbness Exam Const General: cooperative, healthy appearing, comfortable and no acute distress [facility] Head: normocephalic and atraumatic Neck Neck: supple Resp Effort & Inspection: normal respiratory effort Cardio Rate: regular rate GI Inspection: non-distended Palpation: soft and nontender Skin General: no rashes or lesions noted Neuro General: CN's II-XI intact bilaterally Extrem General: normal to inspection Psych Mental Status: mental status grossly normal Attitude: cooperative Assessment and Plan Assessment and Plan (1) Anemia: Status: Chronic (2) Guaiac positive stools: Status: Chronic Plan I have discussed the above with the patient. I have offered the patient esophagogastroduodenoscopy and colonoscopy for evaluation. I have explained the risks/benefits of the procedure and described the procedure. I have discussed the risks with the patient, including but not limited to: infection, bleeding, perforation of the GI tract requiring emergency surgery, inability to complete the procedure, injury to any internal organs, complications of anesthesia, etc. - the patient understands and agrees to proceed. I have answered all the patient's questions to the patient's satisfaction and the patient has no further questions. The patient has been given instructions for the colon cleansing preparation. 1 day of clears, MiraLAX Dulcolax split prep. Jeri Bennett M.D. Pager: [phone] [facility] [address] [place] [address], [facility], [address] [place] [address] Office: [phone] Coding Level of Care Code Off vis,new,level 3 Diagnoses Anemia D64.9 Guaiac positive stools R19.5 05/17/23 1553 <Electronically signed by Jeri Bennett MD> Date Jeri Bennett MD 06/05/23721 <Electronically signed by Jeri Bennett MD> Cosigner Signature (if applicable): CC: Dr. Renato Bonilla MD; Dr. Jeri Bennett MD~ Signed ADDENDUM by Dr. Jeri Bennett MD on 06/05/23 at 0723 Addendum I have examined the patient and the H&P has been reviewed. There are no clinicalchanges since date of exam. 06/05/23722<Electronically signed by Jeri Bennett MD> Cosigner Signature (if applicable): cc: Dr. Renato Bonilla MD; Dr. Jeri Bennett MD ~* Signed [facility] Work Phone: 1(928) 664-415112-04-2023 [facility]12-04-2023 Procedure note [facility]12[facility]04[facility] summary Author Erik yHlton [facility] July 27, 2023 1:24pm Note Date/Time July 27, 2023 1 :21pm [facility] Medical Records Department [address] [place] [address] Discharge Summary 07/27/23 1313 MR#: [id number] Acct: [id number] Name: AMIE RYAN Rep #:[id number] : 1960 62 From: Erik Weinberg PCP: Dr. Renato Bonilla MD Status:ADM I NO Location: [place] [address] Providers Date of Admission: 07/26/23 Date of Discharge: 07/27/23 Primary Care Physician: Dr. Renato Bonilla MD Reason For Visit: NEAR SYNCOPE Diagnosis Discharge Diagnosis (1) Near syncope: Status: Acute Code(s): R55 - Syncope and collapse Plan The patient is a 62 y/o F Admitted for lightheadedness and near syncope that isstarted on the evening on the day of admission. No syncope or LOC. She had similar symptoms when she required cardiac stent in June. #1. Recurrent Lightheadedness, Near Syncopal Event: EKG in ED w/ sinus bradycardic rhythm without evidence of acute ischemia, CXR w/ no acute cardiopulmonary findings, CTPA without acute findings and stable pseudoaneurysm per report, 3 serial troponins negative therefore ACS ruled out. Patient orthostatic blood pressure was negative. Patient orthostatic blood pressure on supine 114/70 went up 123/81 on standing up. Her heart rate went up from 57 supine to -79 on standing. Patient does not have symptoms of dizziness or vertigo. Laboratory Results 07/26/23 19:58: WBC 4.5, RBC 3.86 L, Hgb 12.0, Hct 37.5, MCV 97.2, MCH 31.1, MCHC 32.0, RDW Std Deviation 42.8, RDW Coeff of Yulia 12.0, Plt Count 244, MPV 9.4, Immature Gran % (Auto) 0.200, Neut % (Auto) 50.6, Lymph % (Auto) 36.6, Eaton% (Auto) 10.2 H, Eos % (Auto) 1.5, Baso % (Auto) 0.9, Absolute Neuts (auto) 2.3,Absolute Lymphs (auto) 1.66, Nucleated RBC % 0, Sodium 138, Potassium 3.8, Chloride 108 H, Carbon Dioxide 27.0, Anion Gap 3 L, BUN 22 H, Creatinine 0.94, Estim Creat Clear Calc 54.96, Est GFR (MDRD) Af Amer 78, Est GFR (MDRD) Non-Af 64, BUN/Creatinine Ratio 23.4 H, Glucose 105, Calcium 9.7, Troponin I High Sens 10, POC Glucose 79 07/26/23 23:10: Magnesium 2.5, Troponin I High Sens 12 07/27/23 02:11: WBC 3.8 L, RBC 3.71 L, Hgb 11.8 L, Hct 35.4 L, MCV 95.4, MCH 31.8, MCHC 33.3, RDW Std Deviation 42.3, RDW Coeff of Yulia 12.0, Plt Count 211, MPV 8.7, Immature Gran % (Auto) 0.300, Neut % (Auto) 41.2 L, Lymph % (Auto) 45.3H, Eaton % (Auto) 10.3 H, Eos % (Auto) 2.4, Baso % (Auto) 0.5, Absolute Neuts (auto) 1.6 L, Absolute Lymphs (auto) 1.72, Nucleated RBC % 0, Sodium 140, Potassium 3.4 L, Chloride 111 H, Carbon Dioxide 26.0, Anion Gap 3 L, BUN 19 H, Creatinine 0.90, Estim Creat Clear Calc 57.40, Est GFR (MDRD) Af Amer 82, Est GFR (MDRD) Non-Af 68, BUN/Creatinine Ratio 21.2 H, Glucose 113 H, Calcium 8.9, Phosphorus 3.3, Total Bilirubin 0.20, AST 27, ALT 29, Alkaline Phosphatase 114, Troponin I High Sens 12, Total Protein 6.8, Albumin 3.8, Globulin 3.0, Albumin/Globulin Ratio 1.3, Triglycerides 76, Cholesterol 164, LDL Cholesterol 47, VLDL Cholesterol 15, HDL Cholesterol 102 Clinical Impression(s) from Imaging Studies Chest CTA 07/26/23 20:46 IMPRESSION: Abnormal descending thoracic aorta where there is a segment of approximately 6 cm length that appears to represent a large pseudoaneurysm with a very thin overlying wall. No current evidence of leak. COPD. Chest X-Ray 07/26/23 20:55 IMPRESSION: There are findings consistent with COPD. There is no evidence of acute chest disease. 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 She prefers surgical treatment. CTPA showed abnormal segment of 6 cm and descending thoracic aorta possible presenting large pseudoaneurysm with thin overlying the wall. No current evidence of leak. CT 04/30/23 Chase Dougherty with 5.1 cm long pseudoaneurysm of the mid descending aorta. Patient did have follow-up with vascular surgery Dr. Anderson and was eventually referred to tertiary facility. the patient was seen by vascular surgeon at [facility] and plan to follow-up in August. #3. CAD: 06/18/2023 cardiac catheterization noted to be right dominant, left main with mild luminal irregularities, left anterior descending artery with mildluminal irregularities, circumflex artery with mild luminal irregularities, right coronary artery with mid RCA 80% stenosis with MARIYA to the mid RCA, will continue aspirin, Plavix, losartan, not on beta-tabatha therapy given chronic bradycardia. #4. Valvular heart disease: Mild concentric LVH, LV normal size, systolic EF 55to 60% with no regional wall motion abnormality, mild MV regurgitation, moderateTV regurgitation, mild to moderate AV regurgitation, trivial PV regurgitation. #5. Hypertension: Continue home regimen including losartan, amlodipine, PRN hydralazine. #6. Hyperlipidemia: Continue home statin regimen. #7. Anxiety: Per current list on a regimen, encourage continued outpatient follow-up as needed. #8. Restless leg syndrome: Patient uses per record cyclobenzaprine as needed. #9. Former tobacco use: Encourage continued tobacco cessation. #10. DVT Prophylaxis: Lovenox. #11. CODE status: Patient HCPOA and LW are not in place but her would be her decision maker if she was unable. Discussed CODE status at length including difference between FULL code, DNR-CCA and DNR-CC status. Following discussions about the differences in these status, requested Full Code status. Advanced Care Planning Face to Face Time: 16 minutes. Discharge medication reconciliation done. Discharge follow-up instructions completed. Discharge process discussed with the patient and all questions wereanswered to patient's satisfaction. Follow with PCP in 1 to 2 weeks Total time spent, exact 35 minutes on discharge meds reconciliation, examination, coordination of care with nurses and ancillary staff, review of imaging and blood test and discussion with the patient on follow-up instructions. Medications at Discharge Home Medications magnesium oxide 400 mg PO DAILY 11/12/21 cyclobenzaprine 10 mg tablet 10 mg PO DAILY PRN muscle spasm 05/11/23 atorvastatin 40 mg tablet 40 mg PO QHS #30 tabs 05/17/23 vitamin B complex 1 tab PO DAILY 05/17/23 cholecalciferol (vitamin D3) 25 mcg (1,000 unit) tablet (Vitamin D3) 25 mcg PO DAILY 05/31/23 aspirin 81 mg tablet,delayed release (Adult Aspirin Regimen) 81 mg PO DAILY 06/12/23 clopidogrel 75 mg tablet 75 mg PO .COMPLEX #90 tabs 07/14/23 amlodipine 10 mg tablet 10 mg PO DAILY #90 tabs 07/17/23 losartan 50 mg tablet 50 mg PO DAILY 07/17/23 meclizine 25 mg chewable tablet (Antivert) 25 mg PO Q6H PRN PRN dizziness #20 tabs 07/27/23 potassium chloride 20 mEq tablet,extended release(part/cryst) 40 meq (2 x 20 mEq) PO DAILYCM 2 days #4 tabs 07/27/23 Physical Exam Narrative Seen and examined. Patient not feeling dizzy or lightheaded. Denies syncope or LOC. Denies vertigo. Denies headache. Physical exam General: Alert, Oriented x3, Cooperative HEENT: Atraumatic, PERRLA, EOMI, Normocephalic Oral: No Gingival or Mucosal Lesions/ Ulcerations Neck: Supple, No JVD, Negative Carotid Bruits Chest wall/Lungs: Air entry diminished in bilateral lung bases. No crepitation/rhonchi Cardiovascular: Regular rate, Regular Rhythm, Normal S1, Normal S2, pansystolic murmur over cardiac apex. Abdomen: Bowel Sounds Present, Soft, Non Tender, Non-Distended : No renal angle tenderness. No suprapubic tenderness. Extremities: No edema, Capillary Refill Less than 3 Seconds Skin: No rashes, No breakdown Musculoskeletal: No Tenderness to Palpation of Joints or Extremities Neurological: Cranial nerves II-XII grossly intact, DTR 2+/4. No acute focal neurological deficit. Psych/Mental Status: Normal Affect, Appropriate. Weight / BMI Weight Weight: 127 lb 6.835 oz Body Mass Index (BMI) 21.9 ABG / Lab / Microbiology Data 07/27/23 02:11 07/27/23 02:11 Laboratory: Laboratory Results - last 24 hr 07/26/23 19:58: WBC 4.5, RBC 3.86 L, Hgb 12.0, Hct 37.5, MCV 97.2, MCH 31.1, MCHC 32.0, RDW Std Deviation 42.8, RDW Coeff of Yulia 12.0, Plt Count 244, MPV 9.4, Immature Gran % (Auto) 0.200, Neut % (Auto) 50.6, Lymph % (Auto) 36.6, Eaton% (Auto) 10.2 H, Eos % (Auto) 1.5, Baso % (Auto) 0.9, Absolute Neuts (auto) 2.3,Absolute Lymphs (auto) 1.66, Nucleated RBC % 0, Sodium 138, Potassium 3.8, Chloride 108 H, Carbon Dioxide 27.0, Anion Gap 3 L, BUN 22 H, Creatinine 0.94, Estim Creat Clear Calc 54.96, Est GFR (MDRD) Af Amer 78, Est GFR (MDRD) Non-Af 64, BUN/Creatinine Ratio 23.4 H, Glucose 105, Calcium 9.7, Troponin I High Sens 10, POC Glucose 79 07/26/23 23:10: Magnesium 2.5, Troponin I High Sens 12 07/27/23 02:11: WBC 3.8 L, RBC 3.71 L, Hgb 11.8 L, Hct 35.4 L, MCV 95.4, MCH 31.8, MCHC 33.3, RDW Std Deviation 42.3, RDW Coeff of Yulia 12.0, Plt Count 211, MPV 8.7, Immature Gran % (Auto) 0.300, Neut % (Auto) 41.2 L, Lymph % (Auto) 45.3H, Eaton % (Auto) 10.3 H, Eos % (Auto) 2.4, Baso % (Auto) 0.5, Absolute Neuts (auto) 1.6 L, Absolute Lymphs (auto) 1.72, Nucleated RBC % 0, Sodium 140, Potassium 3.4 L, Chloride 111 H, Carbon Dioxide 26.0, Anion Gap 3 L, BUN 19 H, Creatinine 0.90, Estim Creat Clear Calc 57.40, Est GFR (MDRD) Af Amer 82, Est GFR (MDRD) Non-Af 68, BUN/Creatinine Ratio 21.2 H, Glucose 113 H, Calcium 8.9, Phosphorus 3.3, Total Bilirubin 0.20, AST 27, ALT 29, Alkaline Phosphatase 114, Troponin I High Sens 12, Total Protein 6.8, Albumin 3.8, Globulin 3.0, Albumin/Globulin Ratio 1.3, Triglycerides 76, Cholesterol 164, LDL Cholesterol 47, VLDL Cholesterol 15, HDL Cholesterol 102 Radiography Diagnostic Testing: Radiology Impression Chest CTA 07/26/23 20:46 IMPRESSION: Abnormal descending thoracic aorta where there is a segment of approximately 6 cm length that appears to represent a large pseudoaneurysm with a very thin overlying wall. No current evidence of leak. COPD. Electronically Signed: Balaji Waller MD at 22:33 EST , Chest X-Ray 07/26/23 20:55 IMPRESSION: There are findings consistent with COPD. There is no evidence of acute chest disease. Electronically Signed: Balaji Waller MD at 21:50 EST , D/C Instructions Discharge Diet: 2000 mg Sodium Diet Weight Bearing Status: Weight bearing as tolerated Call your doctor if you observe: Fever of 101 or Higher, Coldness, Increased Pain, Numbness or Tingling, Change in Color, Inability to urinate, Inability to have a bowel movement, Shortness of breath, Dizziness, Fainting spells, Swellingin the ankles, Chest pain, Prolonged hiccupping, Increased palpitations (irregular heartbeat) and Calf discomfort When: IN 2 WEEKS Meaningful Use Info Meaningful Use Diagnoses (Choose all that apply): None applicable Discharge Plan Admission Admit Date/Time: 07/26/23 23:47 Primary Reason for Your Visit: Dizziness near syncope. Attending Provider: Erik Hylton Primary Care Provider: Renato Bonilla Chi Consulting Providers: Lubna Horton Instructions Additional Instructions / Restrictions: Follow-up in [facility] in August in regards to the thoracic descending aortic artery aneurysm Discharge Orders/Prescriptions Prescriptions: New potassium chloride 20 mEq Tablet,Er Particles/Crystals 40 meq PO DAILYCM 2 Days Qty: 4 0RF meclizine [Antivert] 25 mg tablet,chewable 25 mg PO Q6H PRN PRN (Reason: dizziness) Qty: 20 0RF Continued magnesium oxide 400 mg magnesium tablet 400 mg PO DAILY cyclobenzaprine 10 mg tablet 10 mg PO DAILY PRN (Reason: muscle spasm) vitamin B complex Tablet 1 tab PO DAILY atorvastatin 40 mg tablet 40 mg PO QHS Qty: 30 2RF losartan 50 mg tablet 50 mg PO DAILY amlodipine 10 mg tablet 10 mg PO DAILY Qty: 90 3RF cholecalciferol (vitamin D3) [Vitamin D3] 25 mcg (1,000 unit) tablet 25 mcg PO DAILY aspirin [Adult Aspirin Regimen] 81 mg tablet,delayed release (DR/EC) 81 mg PO DAILY clopidogrel 75 mg tablet 75 mg PO .COMPLEX Qty: 90 3RF Rx Instructions: 75 mg orally 4 tablets by mouth ALL at once for loading dose on Aurejo14/14/24, then ONE tablet by mouth DAILY. Stop Brilinta Monday night 05/15. Referrals / Follow Up: Renato Bonilla Chi, MD [Primary Care Provider] - Within 2 Weeks Disposition Disposition (needs filled in before D/C Order can be placed): Home, Self Care Charges/Coding Visit Charges Inpatient E&M: 14826 Disch Hosp >30min 07/27/23 1324 <Electronically signed by Erik Hylton MD> Cosigner Signature (if applicable): CC: Dr. Erik Hylton MD; Dr. Renato Bonilla MD~ Signed [facility] Work Phone: Discharge summary Author Oly Holloway [facility] June 16, 2023 2:01pm Note Date/Time June 16, 2023 1:57pm [facility] Medical Records Department [address] [place] [id number] Discharge Summary 06/16/23 1355 MR#: [id number] Acct: [id number] Name: AMIE RYAN Rep #:[id number] : 1960 62 From: Oly duarte MD PCP: Dr. Renato Bonilla MD Status:ADM I NO Location: [place] [address] Providers Date of Admission: 06/15/23 Primary Care Physician: Dr. Renato Bonilla MD Reason For Visit: ABN CCTA, SEVERE STENOSIS MID RCA, ABN EKG, CAD Diagnosis Discharge Diagnosis (1) Stenosis of right coronary artery: Status: Acute Code(s): I25.10 - Atherosclerotic heart disease of [place] coronary artery without angina pectoris Plan: Patient has significant stenosis to the mid RCA that was treated with a drug- eluting stent. She is being discharged home in a stable condition. She will follow-up with Dr. Wray as an outpatient. (2) Syncope: Status: Chronic Code(s): R55 - Syncope and collapse Qualifiers: Syncope type: unspecified Qualified Code(s): R55 - Syncope and collapse Medications at Discharge Home Medications magnesium oxide 400 mg PO DAILY 11/12/21 cyclobenzaprine 10 mg tablet 10 mg PO DAILY PRN muscle spasm 05/11/23 ferrous sulfate 324 mg (65 mg iron) tablet,delayed release 324 mg PO DAILY 05/11/23 atorvastatin 40 mg tablet 40 mg PO QHS #30 tabs 05/17/23 losartan 25 mg tablet 25 mg PO QHS 05/17/23 vitamin B complex 1 tab PO DAILY 05/17/23 amlodipine 5 mg tablet 5 mg PO QHS 05/31/23 cholecalciferol (vitamin D3) 25 mcg (1,000 unit) tablet (Vitamin D3) 25 mcg PO DAILY 05/31/23 aspirin 81 mg tablet,delayed release (Adult Aspirin Regimen) 81 mg PO DAILY 06/12/23 ticagrelor 90 mg tablet (Brilinta) 90 mg PO BID #60 tabs 06/16/23 Weight / BMI Weight Weight: 122 lb 6 oz Body Mass Index (BMI) 20.9 ABG / Lab / Microbiology Data 06/16/23 06:40 06/16/23 06:40 Laboratory: Laboratory Results - last 24 hr 06/16/23 06:40: WBC 3.9 L, RBC 3.99 L, Hgb 12.6, Hct 39.3, MCV 98.5, MCH 31.6, MCHC 32.1, RDW Std Deviation 43.8, RDW Coeff of Yulia 12.0, Plt Count 214, MPV 9.3, Sodium 143, Potassium 4.1, Chloride 110 H, Carbon Dioxide 28.0, Anion Gap 5, BUN 14, Creatinine 0.80, Estim Creat Clear Calc 64.58, Est GFR (MDRD) Af Amer94, Est GFR (MDRD) Non-Af 78, BUN/Creatinine Ratio 17.6, Glucose 90, Calcium 8.8, Total Bilirubin 0.30, AST 34, ALT 28, Alkaline Phosphatase 83, Total Protein 6.9, Albumin 3.6, Globulin 3.3, Albumin/Globulin Ratio 1.1 Meaningful Use Info Meaningful Use Diagnoses (Choose all that apply): None applicable Discharge Plan Admission Admit Date/Time: 06/15/23 12:35 Primary Reason for Your Visit: For coronary angiography Attending Provider: Oly Holloway Primary Care Provider: Renato Bonilla Chi Instructions Additional Instructions / Restrictions: Do not lift anything over 5 pounds with your right arm for about 5 days. Follow-up with Dr. Wray as an outpatient in about 2-4 weeks If you have any issues picking up Brilinta, please let us know. Discharge Orders/Prescriptions Prescriptions: New Brilinta 90 mg tablet 90 mg PO BID Qty: 60 11RF Continued magnesium oxide 400 mg magnesium tablet 400 mg PO DAILY cyclobenzaprine 10 mg tablet 10 mg PO DAILY PRN (Reason: muscle spasm) ferrous sulfate 324 mg (65 mg iron) tablet,delayed release (DR/EC) 324 mg PO DAILY vitamin B complex Tablet 1 tab PO DAILY losartan 25 mg tablet 25 mg PO QHS atorvastatin 40 mg tablet 40 mg PO QHS Qty: 30 2RF cholecalciferol (vitamin D3) [Vitamin D3] 25 mcg (1,000 unit) tablet 25 mcg PO DAILY amlodipine 5 mg tablet 5 mg PO QHS aspirin [Adult Aspirin Regimen] 81 mg tablet,delayed release (DR/EC) 81 mg PO DAILY Referrals / Follow Up: Renato Bonilla Chi, MD [Primary Care Provider] - Disposition Disposition (needs filled in before D/C Order can be placed): Home, Self Care 06/16/23 1401 <Electronically signed by Oly Holloway MD> Cosigner Signature (if applicable): CC: Dr. Oly Holloway MD; Dr. Renato Bonilla MD~ Signed [facility] Work Phone: Discharge summary Author Jailene Pierre [facility] Note Date/Time February 28, 2025 11 :16am [facility] Medical Records Department [address] [place] [address] Emergency Department Summary 02/28/25 MR#: [id number] Acct: [id number] Name: AMIE RYAN Rep #:[id number] : 1960 64 From: Jailene Pierre MD PCP: Dr. Renato Bonilla MD Status:REG E R Location: ED HPI History of Present Illness Chief Complaint: Abn Labs Narrative Narrative: Patient is a 64-year-old female presenting to the emergency department for generalized fatigue, mild shortness of breath and abnormal outpatient hemoglobin. She is not on OAC. Patient states that on Monday she was having similar symptoms, she went to [facility] emergency department where her hemoglobinwas tested and it dropped from 11 to 7. She got 1 unit of PRBC and was observedovernight. There was no EGD or colonoscopy done. Reportedly at that time she had a fecal occult that was positive. She states that over the past few days she has continued to notice melanotic stool as well as generalized fatigue. Shestates that she called her primary care doctor today while she was at work and he told her to come be evaluated. She denies any abdominal pain, nausea, vomiting, diarrhea. States that she does take iron supplements 3 times a week but her stool looks different than normal. Reports there is no bright red bloodper rectum. Reports her last EGD and colonoscopy were in [address] Bennett. Patient reports that she has never received a blood transfusion before this and has never had a GI bleed. [facility] Medical History Coronary artery disease Raynauds phenomenon Dyslipidemia Palpitations Hypokalemia Abnormal findings diagnostic imaging of heart and coronary circulation (06/07/23) Atherosclerotic heart disease of cous[place]ta coronary artery without angina pectoris (06/07/23) 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) Anxiety Shortness of breath on exertion History of echocardiogram History of stress test Cardiology follow-up encounter History of irregular heartbeat Guaiac positive stools Abnormal ECG Anemia Blood in stool Pseudoaneurysm of aorta Fatigue Syncope Vitamin D deficiency Major depressive disorder, recurrent episode, in full remission Lightheadedness Numbness and tingling in both hands Bradycardia Wears contact lenses Post-menopausal Excessive bleeding Easy bruising Restless legs Back pain History of IBS Former smoker Encounter for screening for malignant neoplasm of colon Muscle spasm Hyperlipidemia Hypertension Home Medications ?Medication ?Instructions ?Recorded ?Last Taken ?Type magnesium oxide 400 mg PO DAILY 11/12/21 Unk nown History cyclobenzaprine 10 mg tablet 10 mg PO DAILY PRN muscle spasm 05/11/23 Unknown History atorvastatin 40 mg tablet 40 mg PO QHS #30 tabs Unknown Rx cholecalciferol (vitamin D3) 25 25 mcg PO DAILY Unknown History mcg (1,000 unit) tablet (Vitamin D3) aspirin 81 mg tablet,delayed 81 mg PO DAILY 06/12/23 1 08/16/22 History release (Adult Aspirin Regimen) calcium carbonate (Calcium 600) 600 mg PO DAILY Unknown History ferrous sulfate 325 mg (65 mg 325 mg PO Q OTHER DAY Unknown History iron) tablet (FeroSul) losartan 50 mg tablet 50 mg PO DAILY #90 tabs 06/03 01/23 Unknown Rx Held on 02/28/25. Instructions: per t report amlodipine 5 mg tablet 5 mg PO DAILY #90 tabs 02/19 Unknown Rx Held on 02/28/25. Instructions: per pt preport Allergy/AdvReac Type Severity Reaction Status Date / Time No Known Allergies Allergy Verified 02/28/25 09:22 Family History Mother Hypertension Cancer Arthritis CVA (cerebral vascular accident) Stomach ulcer Father Cancer bladder Grandmother Cancer Uncle Prostate carcinoma Surgical History Stented coronary artery (06/15/23) Hx of hysterectomy Hx of colonoscopy Social History household members: spouse Smoking Status: Former smoker alcohol intake: former year quit: 1990 substance use type: does not use caffeine: Yes Type: carbonated beverages Number of servings: 1 ROS ROS ED ROS Narrative see HPI EXAM Physical Exam Narrative Exam Narrative: Vital signs: Reviewed General: Alert and oriented. No acute distress HEENT: Head is normocephalic and atraumatic, sinuses nontender, pupils equal round and reactive. Nares are patent. Oropharynx and throat exams normal. Neck: Supple without lymphadenopathy nontender Cardiovascular: Regular rate and rhythm, no murmurs. No rubs or gallops. Normal S1 and S2 Respiratory: Clear to auscultation bilaterally. No wheezes, rales, rhonchi Abdominal: Soft and nontender. Normal bowel sounds. No guarding or rebound. Nonsurgical abdomen Extremities: No tenderness. No bruising. Normal range of motion. Normal sensation. Skin: No rash or redness. Neurological: Cranial nerves II through XII are grossly intact. Normal strengthand sensation. Normal cerebellar function The rest of the physical exam is unremarkable Const Vital Signs: 02/28/25 09:22 02/28/25 09:43 Temperature 97.6 F L Temperature Source Temporal Pulse Rate 83 Respiratory Rate 14 Respiratory Pattern Normal Blood Pressure 126/70 H Blood Pressure Mean 88 Pulse Ox 98 Oxygen Delivery Method Room Air MDM MDM MDM Narrative Medical decision making narrative: Patient is a 64-year-old female presenting to the emergency department for fatigue, shortness of breath and dropping hemoglobin. Patient was seen and examined. Vitals are stable. Patient resting bed comfortably in no acute distress. EKG with normal sinus rhythm. No ischemic changes. No dysrhythmia. CBC with no leukocytosis and hemoglobin of 6.7, dropped from 8.2 yesterday and from 11.5 on 02/24/25. CMP with elevated BUN of 34 consistent with her upper GI bleed. Patient is saying that she has melanotic stool and had a Hemoccult done at outside facility and I do not think it is necessary to repeat this here. She ishaving no abdominal pain and no brisk bleeding I do not think it is necessary toobtain CT imaging. Patient consented for 1 unit PRBC. Spoke to RIVKA Potter to have an EGD done. He states will likely do this morning/afternoon. Given this is the second time patient has been seen in the ED in the past week for GI bleed and her Hgb continues to drop, she will be admitted for symptomatic anemiaand EGD. Will admit to hospitalist. Clinical impression: UGIB Acute on chronic anemia Elevated BUN History & Record Review Discussion w/independent historian: Patient Additional record(s) reviewed:: Prior outpatient record Lab Data Attestation: I reviewed the patient's lab results. Labs: Laboratory Results - last 24 hr 02/28/25 09:40 WBC 5.7 RBC 2.05 L Hgb 6.7 L Hct 20.0 L MCV 97.6 MCH 32.7 H MCHC 33.5 RDW Std Deviation 48.3 H RDW Coeff of Yulia 13.6 Plt Count 255 MPV 8.8 Immature Gran % (Auto) 1.200 H Neut % (Auto) 56.9 Lymph % (Auto) 27.7 Eaton % (Auto) 10.5 H Eos % (Auto) 3.3 Baso % (Auto) 0.4 Absolute Neuts (auto) 3.3 Absolute Lymphs (auto) 1.58 Nucleated RBC % 0.5 Sodium 136 Potassium 4.2 Chloride 102 Carbon Dioxide 24.3 Anion Gap 9 BUN 34 H Creatinine 0.82 Estim Creat Clear Calc 58.84 Est GFR (MDRD) Non-Af 81 BUN/Creatinine Ratio 41.6 H Glucose 107 H Calcium 8.6 Total Bilirubin 0.20 AST 22 ALT 14 Alkaline Phosphatase 58 Total Protein 5.9 Albumin 3.9 Globulin 2.0 L Albumin/Globulin Ratio 1.9 Discharge Plan Triage Chief Complaint: Abn Labs ED Provider: Jailene Pierre Dx/Rx/DC Orders Prescriptions: No Action magnesium oxide 400 mg magnesium tablet 400 mg PO DAILY cyclobenzaprine 10 mg tablet 10 mg PO DAILY PRN (Reason: muscle spasm) atorvastatin 40 mg tablet 40 mg PO QHS Qty: 30 2RF calcium carbonate [Calcium 600] 600 mg calcium (1,500 mg) tablet 600 mg PO DAILY ferrous sulfate [FeroSul] 325 mg (65 mg iron) tablet 325 mg PO Q OTHER DAY cholecalciferol (vitamin D3) [Vitamin D3] 25 mcg (1,000 unit) tablet 25 mcg PO DAILY aspirin [Adult Aspirin Regimen] 81 mg tablet,delayed release (DR/EC) 81 mg PO DAILY losartan 50 mg tablet 50 mg PO DAILY Qty: 90 3RF amlodipine 5 mg tablet 5 mg PO DAILY Qty: 90 3RF Primary Care Provider: Renato Bonilla Chi Referrals: Renato Bonilla Chi, MD [Primary Care Provider] - Print Language: Burmese What to do if you have Problems For any increased pain, shortness of breath, bleeding, nausea or vomiting, chestpain, or any unexpected problems, contact your Primary Care Provider. Call [facility] ([phone]) or report to the closest Emergency Room. Call 911 if necessary. 02/28/25 1116 <Electronically signed by Jailene Pierre MD> Cosigner Signature (if applicable): CC: Dr. Renato Bonilla MD ~ Signed [facility] Work Phone: Evaluation noteNo assessment information available [facility] Work Phone: Evaluation note* Diagnosis Onset Date Resolution Status Abnormal ECG chronic Anemia chronic Guaiac positive stools chron ic Hypertension chronic Pseudoaneurysm of aorta brick washer florin Syncope chronic Pseudoaneurysm of aorta brick washer florin Anemia chronic Guaiac positive stools chron ic [facility] Work Phone: Evaluation note* Diagnosis Penetrating atherosclerotic ulcer of aorta- Primary Penetrating ulcer of aorta [facility] Diagnosis Abdominal aortic aneurysm (AAA) without rupture, unspecified part [facility] Diagnosis Onset Date Resolution Status Abnormal ECG chronic Anemia chronic Hypertension chronic Pseudoaneurysm of aorta brick washer florin Syncope chronic Pseudoaneurysm of aorta brick washer florin Anemia chronic Stenosis of right coronary artery June 07, 2023 acute Syncope chronic [facility] Work Phone: Evaluation note* Diagnosis Onset Date Resolution Status Abnormal ECG chronic Anemia chronic Hypertension chronic Pseudoaneurysm of aorta brick washer florin Syncope chronic Pseudoaneurysm of aorta brick washer florin Anemia chronic Stenosis of right coronary artery June 07, 2023 acute Syncope chronic Abnormal ECG chronic Coronary artery disease brick washer florin Dyslipidemia chronic Hypertension chronic Pseudoaneurysm of aorta brick washer florin Raynauds phenomenon chronic Stented coronary artery June 15, 2023 chronic Syncope chronic [facility] Work Phone: Evaluation note* Diagnosis Onset Date Resolution Status Abnormal ECG chronic Anemia chronic Hypertension chronic Pseudoaneurysm of aorta brick washer florin Syncope chronic Pseudoaneurysm of aorta brick washer florin Anemia chronic Stenosis of right coronary artery June 07, 2023 acute Syncope chronic Abnormal ECG chronic Coronary artery disease brick washer florin Dyslipidemia chronic Hypertension chronic Pseudoaneurysm of aorta brick washer florin Raynauds phenomenon chronic Stented coronary artery June 15, 2023 chronic Syncope chronic Near syncope acute [facility] Work Phone: Evaluation note* Diagnosis Onset Date Resolution Status Abnormal ECG chronic Anemia chronic Hypertension chronic Pseudoaneurysm of aorta brick washer florin Syncope chronic Pseudoaneurysm of aorta brick washer florin Anemia chronic Stenosis of right coronary artery June 07, 2023 acute Syncope chronic Abnormal ECG chronic Coronary artery disease brick washer florin Dyslipidemia chronic Hypertension chronic Pseudoaneurysm of aorta brick washer florin Raynauds phenomenon chronic Stented coronary artery June 15, 2023 chronic Syncope chronic Near syncope resolved [facility] Work Phone: Evaluation note* Diagnosis Penetrating atherosclerotic ulcer of aorta- Primary Tachycardia Tachycardia, unspecified [facility] Diagnosis Penetrating ulcer of aorta [facility] Diagnosis Onset Date Resolution Status Abnormal ECG chronic Coronary artery disease brick washer florin Dyslipidemia chronic Hypertension chronic Pseudoaneurysm of aorta brick washer florin Raynauds phenomenon chronic Stented coronary artery June 15, 2023 chronic Syncope chronic Near syncope resolved [facility] Work Phone: Evaluation note* Diagnosis Penetrating atherosclerotic ulcer of aorta [facility] Diagnosis Penetrating ulcer of aorta- Primary [facility] Diagnosis SVT (supraventricular tachycardia) (HCC)- Primary Other specified cardiac dysrhythmias Palpitations Syncope and collapse Vasovagal syncope Syncope and collapse Bradycardia Other specified cardiac dysrhythmias Coronary artery disease involving coushatta coronary artery of [place] heart without angina pectoris History of percutaneous coronary intervention Personal history of surgery to heart and great vessels, presenting hazards to health [facility] Diagnosis Onset Date Resolution Status Abnormal ECG chronic Anemia chronic Guaiac positive stools chron ic Hypertension chronic Pseudoaneurysm of aorta brick washer florin Syncope chronic Pseudoaneurysm of aorta brick washer florin Anemia chronic Guaiac positive stools chron ic Stenosis of right coronary artery June 07, 2023 acute Syncope chronic [facility] Work Phone: Evaluation note* Diagnosis Penetrating ulcer of aorta [facility] Diagnosis Chest pain- Primary Unspecified chest pain Near syncope Atherosclerotic ulcer of aorta Near syncope documented in this encounter [facility] Work Phone: Hospital Discharge instructionsAdditional Instructions Please start taking the following medications: Pantoprazole 40 mg twice daily Sucralfate 1 g 3 times daily before meals for 1 month Please hold the following medications: Aspirin: Hold on taking this for 1 month to allow your stomach ulcer to heal Amlodipine and losartan: Your blood pressures were in low normal range here. Hold on taking these blood pressure medications until follow-up with your primary care doctor. Please call the GI office soon to schedule a follow-up appointment. [facility]: [facility]: Reason for referral (narrative)* Consultation (Urgent) - New Request Specialty Diagnoses / Procedures Referred By Cindy jha Referred To Contact Electrophysiology Diagnoses Tachycardia Lynn Richardson MD [facility] [place] [address] Referral ID Status Reason Start Date Expiration Date V isits Requested Visits Authorized [id number] New Request 09/14/2023 10/08/2024 1 1 * MRI/CAT Scan (Routine) - New Request Specialty Diagnoses / Procedures Referred By Cindy jha Referred To Contact Diagnoses Penetrating atherosclerotic ulcer of aorta Procedures CT ANGIO CHEST (NONCORONARY) WI CT ANGIO, CHEST (NON-CORON), COMBO, INCL IMG PROC Christelle Mariano PAC [address] [place] [address] Referral ID Status Reason Start Date Expiration Date V isits Requested Visits Authorized [id number] New Request 09/14/2023 10/08/2024 1 1 [facility])No reason for referral information availableW[facility] Work Phone: Reason for visit Narrative* MRI/CAT Scan (Routine) - Closed Specialty Diagnoses / Procedures Referred By Contac t Referred To Contact Diagnoses Penetrating ulcer of aorta Procedures CT ANGIO CHEST (NONCORONARY) CHG CT ANGIOGRAPHY CHEST W/CONTRAST/NONCONTRAST Madeline Razo, [employer] [address] [place] [address] Phone: tel: fax: Referral ID Status Reason Start Date Expiration Date Visits Re quested Visits Authorized [id number] Closed 07/03/2024 04/01/2025 1 1 [facility] Summary Purpose Family History No Family History Records Found Relationship Condition Age at Onset Recorded Date/T lorna mother Hypertension Unknown Malignant neoplasm Unknown Arthritis Unknown Cerebrovascular accident (CVA) Unknown Gastric ulcer Unknown father Malignant neoplasm Unknown grandmother Malignant neoplasm Unknown uncle Carcinoma of prostate Unknown Advance Directives No Advanced Directives Records Found Advance Directive Response Recorded Date/ Time Living Will No February 15 11:15am Power of Eradicator No February 15 11:15am Advance Directive Response Recorded Date/ Time Living Will No February 15 10:15am Power of Eradicator No February 15 10:15am Advance Directive Response Recorded Date/ Time Living Will No May 31, 023 10:15am Power of Eradicator No May 31, 2023 10:15am Advance Directive Response Recorded Date/ Time Advance Directives No June 10:36am Living Will No June 19, 023 10:36am Power of Eradicator No June 19, 2023 10:36am Advance Directive Response Recorded Date/ Time Advance Directives No June 10:36am Living Will No July 27 12:27am Power of Eradicator No July 27, 2023 12:27am Advance Directive Response Recorded Date/ Time Advance Directives No June 11:36am Living Will No July 27 1:27am Power of Eradicator No July 27, 2023 1:27am Advance Directive Response Recorded Date/ Time Advance Directives No June 9:42am Living Will No June 15, 023 9:42am Power of Eradicator No June 15, 2023 9:42am Date Activated Date Inactivated Comments 10/17/2024 4:32 PM Question Answer Comments Plan of Care: Code Status Discussion Completed Decision Maker: Patient Advance Directive Response Recorded Date/ Time Advance Directives No June 11:36am Advance Directive Response Recorded Date/ Time Do you have a Healthcare Power of Eradicator? No February 28, 2025 9:43am Advance Directives No June 11:36am Advance Directive Response Recorded Date/ Time Do you have a Healthcare Power of Eradicator? No February 28, 2025 12:09pm Advance Directives No June 11:36am Chief Complaint and Reason for Visit Chief Complaint CIGARETTE SMOKER Chief Complaint CIGARETTE SMOKER SOB Shortness of breath Chief Complaint SCREENING Chief Complaint SYNCOPE (CHAD) CONSULT-PSEUDOANEURYSM IRON DEFICIENCY ANEMIA BP CHECK EORDER Reason for Visit Abnormal ECG Anemia Guaiac positive stools Hypertension Pseudoaneurysm of aorta Syncope Pseudoaneurysm of aorta Anemia Guaiac positive stools Chief Complaint SYNCOPE (CHAD) CONSULT-PSEUDOANEURYSM IRON DEFICIENCY ANEMIA BP CHECK EORDER SYNCOPE Syncope Reason for Visit Abnormal ECG Anemia Guaiac positive stools Hypertension Pseudoaneurysm of aorta Syncope Pseudoaneurysm of aorta Anemia Guaiac positive stools Chief Complaint SYNCOPE (CHAD) CONSULT-PSEUDOANEURYSM IRON DEFICIENCY ANEMIA BP CHECK EORDER SYNCOPE Syncope ABN CCTA, SEVERE STENOSIS MID RCA, ABN EKG, CAD ABN CCTA, SEVERE STENOSIS MID RCA, ABN EKG, CAD right radial cath site check E-ORDER Reason for Visit Abnormal ECG Anemia Hypertension Pseudoaneurysm of aorta Syncope Pseudoaneurysm of aorta Anemia Stenosis of right coronary artery Syncope Chief Complaint SYNCOPE (CHAD) CONSULT-PSEUDOANEURYSM IRON DEFICIENCY ANEMIA BP CHECK EORDER SYNCOPE Syncope ABN CCTA, SEVERE STENOSIS MID RCA, ABN EKG, CAD ABN CCTA, SEVERE STENOSIS MID RCA, ABN EKG, CAD right radial cath site check E-ORDER 8 wk fu EORDER Reason for Visit Abnormal ECG Anemia Hypertension Pseudoaneurysm of aorta Syncope Pseudoaneurysm of aorta Anemia Stenosis of right coronary artery Syncope Abnormal ECG Coronary artery disease Dyslipidemia Hypertension Pseudoaneurysm of aorta Raynauds phenomenon Stented coronary artery Syncope Chief Complaint SYNCOPE () CONSULT-PSEUDOANEURYSM IRON DEFICIENCY ANEMIA BP CHECK EORDER SYNCOPE Syncope ABN CCTA, SEVERE STENOSIS MID RCA, ABN EKG, CAD ABN CCTA, SEVERE STENOSIS MID RCA, ABN EKG, CAD right radial cath site check E-ORDER 8 wk fu EORDER NEAR SYNCOPE NEAR SYNCOPE Reason for Visit Abnormal ECG Anemia Hypertension Pseudoaneurysm of aorta Syncope Pseudoaneurysm of aorta Anemia Stenosis of right coronary artery Syncope Abnormal ECG Coronary artery disease Dyslipidemia Hypertension Pseudoaneurysm of aorta Raynauds phenomenon Stented coronary artery Syncope Near syncope Chief Complaint SYNCOPE () CONSULT-PSEUDOANEURYSM IRON DEFICIENCY ANEMIA BP CHECK EORDER SYNCOPE Syncope ABN CCTA, SEVERE STENOSIS MID RCA, ABN EKG, CAD ABN CCTA, SEVERE STENOSIS MID RCA, ABN EKG, CAD right radial cath site check E-ORDER 8 wk fu EORDER NEAR SYNCOPE NEAR SYNCOPE I77.9 Disorder of arteries and arterioles, unspeci Reason for Visit Abnormal ECG Anemia Hypertension Pseudoaneurysm of aorta Syncope Pseudoaneurysm of aorta Anemia Stenosis of right coronary artery Syncope Abnormal ECG Coronary artery disease Dyslipidemia Hypertension Pseudoaneurysm of aorta Raynauds phenomenon Stented coronary artery Syncope Near syncope Chief Complaint SYNCOPE () CONSULT-PSEUDOANEURYSM IRON DEFICIENCY ANEMIA BP CHECK EORDER SYNCOPE Syncope ABN CCTA, SEVERE STENOSIS MID RCA, ABN EKG, CAD ABN CCTA, SEVERE STENOSIS MID RCA, ABN EKG, CAD right radial cath site check E-ORDER 8 wk fu EORDER NEAR SYNCOPE NEAR SYNCOPE I77.9 Disorder of arteries and arterioles, unspeci Abnormal electrocardiogram [ECG] [EKG] Reason for Visit Abnormal ECG Anemia Hypertension Pseudoaneurysm of aorta Syncope Pseudoaneurysm of aorta Anemia Stenosis of right coronary artery Syncope Abnormal ECG Coronary artery disease Dyslipidemia Hypertension Pseudoaneurysm of aorta Raynauds phenomenon Stented coronary artery Syncope Near syncope Chief Complaint SYNCOPE Syncope ABN CCTA, SEVERE STENOSIS MID RCA, ABN EKG, CAD ABN CCTA, SEVERE STENOSIS MID RCA, ABN EKG, CAD right radial cath site check E-ORDER 8 wk fu EORDER NEAR SYNCOPE NEAR SYNCOPE I77.9 Disorder of arteries and arterioles, unspeci Abnormal electrocardiogram [ECG] [EKG] Syncope and collapse Syncope and collapse Reason for Visit Stenosis of right co ronary artery Syncope Abnormal ECG Coronary artery disease Dyslipidemia Hypertension Pseudoaneurysm of aorta Raynauds phenomenon Stented coronary artery Syncope Near syncope Chief Complaint 8 wk fu EORDER NEAR SYNCOPE NEAR SYNCOPE I77.9 Disorder of arteries and arterioles, unspeci Abnormal electrocardiogram [ECG] [EKG] Syncope and collapse Syncope and collapse Reason for Visit Abnormal ECG Coronary artery disease Dyslipidemia Hypertension Pseudoaneurysm of aorta Raynauds phenomenon Stented coronary artery Syncope Near syncope Chief Complaint SYNCOPE (CHAD) CONSULT-PSEUDOANEURYSM IRON DEFICIENCY ANEMIA BP CHECK EORDER SYNCOPE Syncope ABN CCTA, SEVERE STENOSIS MID RCA, ABN EKG, CAD ABN CCTA, SEVERE STENOSIS MID RCA, ABN EKG, CAD Reason for Visit Abnormal ECG Anemia Guaiac positive stools Hypertension Pseudoaneurysm of aorta Syncope Pseudoaneurysm of aorta Anemia Guaiac positive stools Stenosis of right coronary artery Syncope Chief Complaint Admit Date 6 M FU October 21, 2024 3:2 6pm DIZZINESS October 29, 2024 7:1 9am OVERACTIVE BLADDER / Dizziness, Near Syn cope October 31, 2024 11:48am Amb Documentation October 31, 2024 5:40pm Reason for Visit Admit Date Dizziness October 21, 2024 3:2 6pm Dyslipidemia October 21, 2024 3:2 6pm Hypertension October 21, 2024 3:2 6pm 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, 2024 3:26pm Stented coronary artery October 21, 2024 3:26pm SVT (supraventricular tachycardia) October 21, 2024 3:26pm Syncope October 21, 2024 3:2 6pm Chief Complaint Admit Date 6 M FU October 21, 2024 3:2 6pm 30 DAY MONITOR October 29, 2024 7:0 0am DIZZINESS October 29, 2024 7:1 9am OVERACTIVE BLADDER / Dizziness, Near Syn cope October 31, 2024 11:48am Amb Documentation October 31, 2024 5:40pm LEFT KIDNEY CYST November 29, 2024 3:12p m 6 W FU December 02, 2024 3:22p m Reason for Visit Admit Date Dizziness October 21, 2024 3:2 6pm Dyslipidemia October 21, 2024 3:2 6pm Hypertension October 21, 2024 3:2 6pm 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, 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 Stented coronary artery October 21, 2024 3:26pm SVT (supraventricular tachycardia) October 21, 2024 3:26pm Syncope October 21, 2024 3:2 6pm Dyslipidemia December 02, 2024 3:22p m Hypertension December 02, 2024 3:22p m Pseudoaneurysm of aorta December 02, 2024 3 :22pm Stented coronary artery December 02, 2024 3 :22pm SVT (supraventricular tachycardia) December 02, 2024 3:22pm Syncope December 02, 2024 3:22p m Chief Complaint Admit Date 30 DAY MONITOR October 29, 2024 7:0 0am DIZZINESS October 29, 2024 7:1 9am OVERACTIVE BLADDER / Dizziness, Near Syn cope October 31, 2024 11:48am Amb Documentation October 31, 2024 5:40pm LEFT KIDNEY CYST November 29, 2024 3:12p m 6 W FU December 02, 2024 3:22p m Reason for Visit Admit Date Dyslipidemia December 02, 2024 3:22p m Hypertension December 02, 2024 3:22p m Pseudoaneurysm of aorta December 02, 2024 3 :22pm Stented coronary artery December 02, 2024 3 :22pm SVT (supraventricular tachycardia) December 02, 2024 3:22pm Syncope December 02, 2024 3:22p m Chief Complaint Admit Date OVERACTIVE BLADDER / Dizziness, Near Syn cope October 31, 2024 11:48am Amb Documentation October 31, 2024 5:40pm LEFT KIDNEY CYST November 29, 2024 3:12p m 6 W FU December 02, 2024 3:22p m LOW HGB February 28, 2025 9: 22am Chief Complaint Admit Date OVERACTIVE BLADDER / Dizziness, Near Syn cope October 31, 2024 11:48am Amb Documentation October 31, 2024 5:40pm LEFT KIDNEY CYST November 29, 2024 3:12p m 6 W FU December 02, 2024 3:22p m ACUTE ANEMIA 2/2 GIB February 28, 2025 1 1:27am Reason for Visit Admit Date Dyslipidemia December 02, 2024 3:22p m Hypertension December 02, 2024 3:22p m Pseudoaneurysm of aorta December 02, 2024 3 :22pm Stented coronary artery December 02, 2024 3 :22pm SVT (supraventricular tachycardia) December 02, 2024 3:22pm Syncope December 02, 2024 3:22p m Acute anemia February 28, 2025 11 :27am GI bleed February 28, 2025 11 :27am Chief Complaint Admit Date LEFT KIDNEY CYST November 29, 2024 3:12p m 6 W FU December 02, 2024 3:22p m ACUTE ANEMIA 2/2 GIB February 28, 2025 1 1:27am ACUTE ANEMIA 2/2 GIB February 28, 2025 1 :01pm ACUTE ANEMIA 2/2 GIB March 01, 2025 9 :32am Reason for Referral Specialty Diagnoses / Procedures Referred By Contac t Referred To Contact Diagnoses Penetrating ulcer of aorta Procedures CT ANEURYSM STUDY WITH AND WITHOUT CONTRAST CHEST/ABDOMEN/PELVIS WI CT ANGIO ABD&PLVIS CNTRST MTRL W/WO CNTRST IMGES [place] CT ANGIO, CHEST (NON-CORON), COMBO, INCL IMG Lynn Mccain MD [address] [place] [address] Referral ID Status Reason Start Date Expiration Date V isits Requested Visits Authorized [id number] New Request 06/08/2023 07/02/2024 1 1 Specialty Diagnoses / Procedures Referred By Contac t Referred To Contact Diagnoses Abdominal aortic aneurysm (AAA) without rupture, unspecified part Procedures CT ANEURYSM STUDY WITH AND WITHOUT CONTRAST CHEST/ABDOMEN/PELVIS WI CT ANGIO ABD&PLVIS CNTRST MTRL W/WO CNTRST IMGES WI CT ANGIO, CHEST (NON-CORON), COMBO, INCL IMG Lynn Mccain MD [address] [place] [address] Referral ID Status Reason Start Date Expiration Date Visits Re quested Visits Authorized [id number] Closed 06/01/2023 06/25/2024 1 1 Referral ID Status Reason Start Date Expiration Date Visits Re quested Visits Authorized [id number] Closed 06/08/2023 07/02/2024 1 1 Specialty Diagnoses / Procedures Referred By Contac t Referred To Contact Diagnoses Penetrating atherosclerotic ulcer of aorta Procedures CT ANGIO CHEST (NONCORONARY) [place] CT ANGIO, CHEST (NON-CORON), COMBO, INCL IMG PROC Christelle Mariano PA-C [address] [place] [address] Referral ID Status Reason Start Date Expiration Date Visits Re quested Visits Authorized [id number] Closed 01/19/2024 10/08/2024 1 1 Specialty Diagnoses / Procedures Referred By Contac t Referred To Contact Diagnoses Penetrating ulcer of aorta Procedures CT ANGIO CHEST (NONCORONARY) CHG CT ANGIOGRAPHY CHEST W/CONTRAST/NONCONTRAST Madeline Razo APRN-SCHOOL HEALTH ASSISTANT [address] [place] [address] Referral ID Status Reason Start Date Expiration Date V isits Requested Visits Authorized [id number] New Request 03/07/2024 04/01/2025 1 1 Additional Source Comments INFORMATION SOURCE (unrecogn ized section and content) DATE CREATED AUTHOR 06/25/2019 [facility] DATE CREATED AUTHOR AUTHOR'S ORGANIZ ATION 05/04/2022 [facility] DATE CREATED AUTHOR AUTHOR'S ORGANIZ ATION 03/10/2024 [facility] DATE CREATED AUTHOR AUTHOR'S ORGANIZ ATION 10/14/2024 [facility] DATE CREATED AUTHOR AUTHOR'S ORGANIZ ATION 10/20/2024 [facility] DATE CREATED AUTHOR AUTHOR'S ORGANIZ ATION 10/24/2024 [facility] DATE CREATED AUTHOR AUTHOR'S ORGANIZ ATION 12/06/2024 [facility] DATE CREATED AUTHOR AUTHOR'S ORGANIZ ATION 02/26/2025 [facility] DATE CREATED AUTHOR AUTHOR'S ORGANIZ ATION 03/07/[address] [facility] <item><item><item> Privacy Markings (unrecogniz ed section and [...] you with the consent of such client. Goals (unrecognized section and content) Goals may be documented in a n alternate sectionGoals may be documented in an alternate sectionGoals may be documented in an alternate sectionGoals may be documented in an alternate sectionGoals may be documented in an alternate sectionGoals may be documented in an alternate sectionGoals may be documented in an alternate sectionGoals may be documented in an alternate sectionGoals may be documented in an alternate sectionGoals may be documented in an alternate sectionGoals may be documented in an alternate sectionGoals may be documented in an alternate sectionGoals may be documented in an alternate sectionGoals may be documented in an alternate section Care Teams (unrecognized sec tion and content) Team Status: Active Member Role Status Dates Dr. Renato Bonilla MD Family Provider Active Dr. Renato Bonilla MD Primary Care Provider Active Team Status: Inactive Member Role Status Dates Dr. Renato Bonilla MD Primary Care Provider, Attending Provider Active Team Status: Inactive Member Role Status Dates Dr. Renato Bonilla MD Primary Care Provi ev, Attending Provider, Referring Provider Active Team Status: Inactive Member Role Status Dates Dr. Renato Bonilla MD Referring Provider Active Dr. Jeff Wray MD Attending Provider Active Team Status: Inactive Member Role Status Dates Dr. Renato Bonilla MD Referring Provider Active KISHA Capps Attending Provider Active Team Status: Inactive Member Role Status Dates Dr. Renato Bonilla MD Primary Care Provider, Referring Provider Active Dr. Jeri Bennett MD Attending Provider Active Team Status: Inactive Member Role Status Dates Dr. Jeff Wray MD Attending Provider Active Dr. Renato Bnoilla MD Primary Care Provider, Referring Provider Active Team Status: Inactive Member Role Status Dates Dr. Renato Bonilla MD Primary Care Provider Active Dr. Jeff Wray MD Attending Provider, Referring Pr ovider Active Team Status: Active Member Role Status Dates Dr. Jeri Bennett MD Attending Provider, Other Pro vider Active Dr. Renato Bonilla MD Primary Care Provider, Referring Provider Active Team Status: Inactive Member Role Status Dates Dr. Jeri Bennett MD Attending Provider Active Dr. Renato Bonilla MD Primary Care Provider, Referring Provider Active Turf And Grounds Supervisor Relationship Specialty Start Date End Date Santos Bonilla MD [address] [place] [address] PCP - General 06/07/23 Tur[employer] And Grounds Supervisor Relationship Specialty Start Date End Date Santos Bonilla MD [address] [place] [address] PCP - General 06/07/23 Team Status: Active Member Role Status Dates Dr. Jeff Wray MD Referring Provider, Other Provid er Active Dr. Renato Bonilla MD Primary Care Provider Active Dr. Abdiel Lennon MD Attending Provider Active Team Status: Inactive Member Role Status Dates Dr. Jeff Wray MD Attending Provider, Referring Pr ovider Active Dr. Renato Bonilla MD Primary Care Provider Active Team Status: Inactive Member Role Status Dates Dr. Renato Bonilla MD Primary Care Provider Active Dr. Jeff Wray MD Attending Provider Active Team Status: Active Member Role Status Dates Dr. Renato Bonilla MD Primary Care Provider Active Dr. Jeff Wray MD Attending Provider Active Team Status: Active Member Role Status Dates Dr. Renato Bonilla MD Primary Care Provider Active Dr. Oly Holloway MD Admit Prov ider, Attending Provider, Referring Provider, Other Provider Active Team Status: Inactive Member Role Status Dates Dr. Renato Bonilla MD Primary Care Provider, Referring Provider Active Dr. Jeff Wray MD Attending Provider Active Team Status: Inactive Member Role Status Dates Dr. Renato Bonilla MD Primary Care Provider Active Dr. Oly Holloway MD Admit Prov ider, Attending Provider, Referring Provider Active Team Status: Inactive Member Role Status Dates Dr. Renato Bonilla MD Primary Care Provider Active Angy Bryan PA, PA Attending Provider, Referr ing Provider Active Team Status: Active Member Role Status Dates Dr. Renato Bonilla MD Primary Care Provider Active Dr. Niecy Joseph MD Referring Provider, Emergency Provider Active Dr. Lubna Horton MD Admit Provider, Other Provider Active Dr. Erik Hylton MD Attending Provider, Other Provi ev Active Team Status: Inactive Member Role Status Dates Dr. Renato Bonilla MD Primary Care Provider Active Dr. Niecy Joseph MD Referring Provider, Emergency Provider Active Dr. Lubna Horton MD Admit Provider, Other Provider Active Dr. Erik Hylton MD Attending Provider Active Team Status: Active Member Role Status Dates Dr. Renato Bonilla MD Primary Care Provider Active Dr. Niecy Joseph MD Emergency Provider Active Dr. Lubna Horton MD Admit Provider, Other Provider Active Dr. Erik Hylton MD Attending Provider, Other Provi ev Active Team Status: Active Member Role Status Dates Dr. Renato Bonilla MD Primary Care Provi ev, Attending Provider, Referring Provider Active Turf And Grounds Supervisor Relationship Specialty Start Date End Date Santos Bonilla MD [address] [facility] [address] [place] [address] PCP - General 06/07/23 Turf And Grounds Supervisor Relationship Specialty Start Date End Date Santos Bonilla MD [address] [facility] [address] [place], [place] [address] PCP - General 06/07/23 Team Status: Active Member Role Status Dates Dr. Renato Bonilla MD Primary Care Provider Active Dr. Jeff Wary MD Referring Provider, Other Provid er Active Dr. Abdiel Lennon MD Attending Provider Active Tur[employer] And Grounds Supervisor Relationship Specialty Start Date End Date Renato Bonilla Chi [address] [place], [place] [id number] PCP - General Gerontology 06/25/19 Turf And Grounds Supervisor Relationship Specialty Start Date End Date Santos Bonilla MD [address] [facility] [address] [place], [place] [address] PCP - General 06/07/23 Turf And Grounds Supervisor Relationship Specialty Start Date End Date Renato Bonilla Chi [address] [place] [address] PCP - General Gerontology 06/25/19 Turf And Grounds Supervisor Relationship Specialty Start Date End Date Renato Bonilla Chi [address] [place] [address] PCP - General Gerontology 06/25/19 Jeff Wray MD [address] [place], [place] [address] Specialty Machinery Engineer Cardiology 03/27/24 Lynn Richardson [address] [facility] [address] [place] [address] Specialty Machinery Engineer Vascular Surgery 03/28/24 Turf And Grounds Supervisor Relationship Specialty Start Date End Date Santos Bonilla MD [address] [place] [address] PCP - General 06/07/23 Turf And Grounds Supervisor Relationship Specialty Start Date End Date Santos Bonilla MD [address] [facility] [address] [place] [address] PCP - General 04/25/22 Team Status: Active Member Role Status Dates Dr. Renato Bonilla MD Primary Care Provider Active Team Status: Inactive Member Role Status Dates Dr. Renato Bonilla MD Primary Care Provider Active Start: October 21, 2024 End: October 21, 2024 Dr. Renato Bonilla MD Referring Provider Active Start: October 21, 2024 End: October 21, 2024 Iva Calhoun FOOD DEMONSTRATOR, FOOD DEMONSTRATOR-C Attending Provider Active Start: October 21, 2024 End: October 21, 2024 Team Status: Inactive Member Role Status Dates Dr. Renato Bonilla MD Primary Care Provider Active Start: October 26, 2024 End: October 26, 2024 Dr. Renato Bonilla MD Attending Provider Active Start: October 26, 2024 End: October 26, 2024 Dr. Renato Bonilla MD Referring Provider Active Start: October 26, 2024 End: October 26, 2024 Team Status: Active Member Role Status Dates Dr. Renato Bonilla MD Primary Care Provider Active Start: October 29, 2024 Iva Calhoun FOOD DEMONSTRATOR, FOOD DEMONSTRATOR-C Attending Provider Active Start: October 29, 2024 Iva Calhoun FOOD DEMONSTRATOR, FOOD DEMONSTRATOR-C Referring Provider Active Start: October 29, 2024 Team Status: Inactive Member Role Status Dates Dr. Renato Bonilla MD Primary Care Provider Active Start: October 31, 2024 End: October 31, 2024 Dr. Renato Bonilla MD Attending Provider Active Start: October 31, 2024 End: October 31, 2024 Dr. Renato Bonilla MD Referring Provider Active Start: October 31, 2024 End: October 31, 2024 Iva Calhoun FOOD DEMONSTRATOR, FOOD DEMONSTRATOR-C Other Provider Active Sta rt: October 31, 2024 End: October 31, 2024 Team Status: Active Member Role Status Dates Dr. Renato Bonilla MD Primary Care Provider Active Start: October 31, 2024 Dr. Zelalem Anderson MD Attending Provider Active S tart: October 31, 2024 Team Status: Active Member Role Status Dates Dr. Renato Bonilla MD Primary Care Provider Active Start: October 31, 2024 Iva Calhoun FOOD DEMONSTRATOR, FOOD DEMONSTRATOR-C Attending Provider Active Start: October 31, 2024 Team Status: Active Member Role Status Dates Dr. Renato Bonilla MD Primary Care Provider Active Start: October 31, 2024 Dr. Zelalem Anderson MD Attending Provider Active S tart: October 31, 2024 Iva Calhoun FOOD DEMONSTRATOR, FOOD DEMONSTRATOR-C Referring Provider Active Start: October 31, 2024 Team Status: Inactive Member Role Status Dates Dr. Renato Bonilla MD Primary Care Provider Active Start: November 11, 2024 End: November 11, 2024 Dr. Renato Bonilla MD Attending Provider Active Start: November 11, 2024 End: November 11, 2024 Dr. Renato Bonilla MD Referring Provider Active Start: November 11, 2024 End: November 11, 2024 Team Status: Active Member Role Status Dates Dr. Renato Bonilla MD Primary Care Provider Active Start: October 29, 2024 Dr. Jeff Wray MD Attending Provider Active Start: October 29, 2024 Iva Calhoun FOOD DEMONSTRATOR, FOOD DEMONSTRATOR-C Referring Provider Active Start: October 29, 2024 Team Status: Active Member Role Status Dates Dr. Renato Bonilla MD Primary Care Provider Active Start: November 29, 2024 Dr. Renato Bonilla MD Attending Provider Active Start: November 29, 2024 Dr. Renato Bonilla MD Referring Provider Active Start: November 29, 2024 Team Status: Inactive Member Role Status Dates Dr. Renato Bonilla MD Primary Care Provider Active Start: December 02, 2024 End: December 02, 2024 Dr. Renato Bonilla MD Referring Provider Active Start: December 02, 2024 End: December 02, 2024 Iva Calhoun FOOD DEMONSTRATOR, FOOD DEMONSTRATOR-C Attending Provider Active Start: December 02, 2024 End: December 02, 2024 Team Status: Inactive Member Role Status Dates Dr. Renato Bonilla MD Primary Care Provider Active Start: November 29, 2024 End: November 29, 2024 Dr. Renato Bonilla MD Attending Provider Active Start: November 29, 2024 End: November 29, 2024 Dr. Renato Bonilla MD Referring Provider Active Start: November 29, 2024 End: November 29, 2024 Team Status: Active Member Role/Relationship Status Dates Dr. Renato Bonilla MD Primary Care Provider Active Team Status: Active Member Role/Relationship Status Dates Dr. Renato Bonilla MD Primary Care Provider Active Start: October 29, 2024 Dr. Jeff Wray MD Attending Provider Active Start: October 29, 2024 Iva Calhoun FOOD DEMONSTRATOR, FOOD DEMONSTRATOR-C Referring Provider Active Start: October 29, 2024 Team Status: Active Member Role/Relationship Status Dates Dr. Renato Bonilla MD Primary Care Provider Active Start: October 29, 2024 Iva Calhoun FOOD DEMONSTRATOR, FOOD DEMONSTRATOR-C Attending Provider Active Start: October 29, 2024 Iva Calhoun FOOD DEMONSTRATOR, FOOD DEMONSTRATOR-C Referring Provider Active Start: October 29, 2024 Team Status: Inactive Member Role/Relationship Status Dates Dr. Renato Bonilla MD Primary Care Provider Active Start: October 31, 2024 End: October 31, 2024 Dr. Renato Bonilla MD Attending Provider Active Start: October 31, 2024 End: October 31, 2024 Dr. Renato Bonilla MD Referring Provider Active Start: October 31, 2024 End: October 31, 2024 Iva Calhoun FOOD DEMONSTRATOR, FOOD DEMONSTRATOR-C Other Provider Active Sta rt: October 31, 2024 End: October 31, 2024 Team Status: Active Member Role/Relationship Status Dates Dr. Renato Bonilla MD Primary Care Provider Active Start: October 31, 2024 Dr. Zelalem Anderson MD Attending Provider Active S tart: October 31, 2024 Iva Calhoun FOOD DEMONSTRATOR, FOOD DEMONSTRATOR-C Referring Provider Active Start: October 31, 2024 Team Status: Active Member Role/Relationship Status Dates Dr. Renato Bonilla MD Primary Care Provider Active Start: October 31, 2024 Iva Calhoun FOOD DEMONSTRATOR, FOOD DEMONSTRATOR-C Attending Provider Active Start: October 31, 2024 Team Status: Inactive Member Role/Relationship Status Dates Dr. Renato Bonilla MD Primary Care Provider Active Start: November 11, 2024 End: November 11, 2024 Dr. Renato Bonilla MD Attending Provider Active Start: November 11, 2024 End: November 11, 2024 Dr. Renato Bonilla MD Referring Provider Active Start: November 11, 2024 End: November 11, 2024 Team Status: Inactive Member Role/Relationship Status Dates Dr. Renato Bonilla MD Primary Care Provider Active Start: November 29, 2024 End: November 29, 2024 Dr. Renato Bonilla MD Attending Provider Active Start: November 29, 2024 End: November 29, 2024 Dr. Renato Bonilla MD Referring Provider Active Start: November 29, 2024 End: November 29, 2024 Team Status: Inactive Member Role/Relationship Status Dates Dr. Renato Bonilla MD Primary Care Provider Active Start: December 02, 2024 End: December 02, 2024 Dr. Renato Bonilla MD Referring Provider Active Start: December 02, 2024 End: December 02, 2024 Iva Calhoun NP, FOOD DEMONSTRATOR-C Attending Provider Active Start: December 02, 2024 End: December 02, 2024 Team Status: Inactive Member Role/Relationship Status Dates Dr. Renato Bonilla MD Primary Care Provider Active Start: February 19, 2025 End: February 19, 2025 Dr. Renato Bonilla MD Attending Provider Active Start: February 19, 2025 End: February 19, 2025 Team Status: Active Member Role/Relationship Status Dates Dr. Renato Bonilla MD Primary Care Provider Active Start: February 24, 2025 Dr. Renato Bonilla MD Attending Provider Active Start: February 24, 2025 Team Status: Inactive Member Role/Relationship Status Dates Dr. Renato Bonilla MD Primary Care Provider Active Start: October 31, 2024 End: October 31, 2024 Dr. Renato Bonilla MD Attending Provider Active Start: October 31, 2024 End: October 31, 2024 Dr. Renato Bonilla MD Referring Provider Active Start: October 31, 2024 End: October 31, 2024 Iva Calhoun FOOD DEMONSTRATOR, FOOD DEMONSTRATOR-C Other Provider Active Sta rt: October 31, 2024 End: October 31, 2024 Team Status: Active Member Role/Relationship Status Dates Dr. Renato Bonilla MD Primary Care Provider Active Start: October 31, 2024 Dr. Zelalem Anderson MD Attending Provider Active S tart: October 31, 2024 Iva Calhoun FOOD DEMONSTRATOR, FOOD DEMONSTRATOR-C Referring Provider Active Start: October 31, 2024 Team Status: Active Member Role/Relationship Status Dates Dr. Renato Bonilla MD Primary Care Provider Active Start: October 31, 2024 Iva Calhoun NP, FOOD DEMONSTRATOR-C Attending Provider Active Start: October 31, 2024 Team Status: Inactive Member Role/Relationship Status Dates Dr. Renato Bonilla MD Primary Care Provider Active Start: November 11, 2024 End: November 11, 2024 Dr. Renato Bonilla MD Attending Provider Active Start: November 11, 2024 End: November 11, 2024 Dr. Renato Bonilla MD Referring Provider Active Start: November 11, 2024 End: November 11, 2024 Team Status: Inactive Member Role/Relationship Status Dates Dr. Renato Bonilla MD Primary Care Provider Active Start: November 29, 2024 End: November 29, 2024 Dr. Renato Bonilla MD Attending Provider Active Start: November 29, 2024 End: November 29, 2024 Dr. Renato Bonilla MD Referring Provider Active Start: November 29, 2024 End: November 29, 2024 Team Status: Inactive Member Role/Relationship Status Dates Dr. Renato Bonilla MD Primary Care Provider Active Start: December 02, 2024 End: December 02, 2024 Dr. Renato Bonilla MD Referring Provider Active Start: December 02, 2024 End: December 02, 2024 Iva Calhoun FOOD DEMONSTRATOR, FOOD DEMONSTRATOR-C Attending Provider Active Start: December 02, 2024 End: December 02, 2024 Team Status: Inactive Member Role/Relationship Status Dates Dr. Renato Bonilla MD Primary Care Provider Active Start: February 19, 2025 End: February 19, 2025 Dr. Renato Bonilla MD Attending Provider Active Start: February 19, 2025 End: February 19, 2025 Team Status: Inactive Member Role/Relationship Status Dates Dr. Renato Bonilla MD Primary Care Provider Active Start: February 24, 2025 End: February 24, 2025 Dr. Renato Bonilla MD Attending Provider Active Start: February 24, 2025 End: February 24, 2025 Team Status: Active Member Role/Relationship Status Dates Dr. Renato Bonilla MD Primary Care Provider Active Start: February 27, 2025 Dr. Renato Bonilla MD Attending Provider Active Start: February 27, 2025 Team Status: Active Member Role/Relationship Status Dates Dr. Renato Bonilla MD Primary Care Provider Active Start: February 28, 2025 Dr. Jailene Pierre MD Emergency Provider Active S tart: February 28, 2025 Team Status: Active Member Role/Relationship Status Dates Dr. Renato Bonilla MD Primary Care Provider Active Start: February 28, 2025 Dr. Jailene Pierre MD Emergency Provider Active S tart: February 28, 2025 Dr. Tracy Chow DO Admit Provider Active Start : February 28, 2025 Dr. Tracy Chow DO Attending Provider Active S tart: February 28, 2025 Team Status: Inactive Member Role/Relationship Status Dates Dr. Renato Bonilla MD Primary Care Provider Active Start: November 11, 2024 End: November 11, 2024 Dr. Renato Bonlila MD Attending Provider Active Start: November 11, 2024 End: November 11, 2024 Dr. Renato Bonilla MD Referring Provider Active Start: November 11, 2024 End: November 11, 2024 Team Status: Inactive Member Role/Relationship Status Dates Dr. Renato Bonilla MD Primary Care Provider Active Start: November 29, 2024 End: November 29, 2024 Dr. Renato Bonilla MD Attending Provider Active Start: November 29, 2024 End: November 29, 2024 Dr. Renato Bonilla MD Referring Provider Active Start: November 29, 2024 End: November 29, 2024 Team Status: Inactive Member Role/Relationship Status Dates Dr. Renato Bonilla MD Primary Care Provider Active Start: December 02, 2024 End: December 02, 2024 Dr. Renato Bonilla MD Referring Provider Active Start: December 02, 2024 End: December 02, 2024 Iva Calhoun FOOD DEMONSTRATOR, FOOD DEMONSTRATOR-C Attending Provider Active Start: December 02, 2024 End: December 02, 2024 Team Status: Inactive Member Role/Relationship Status Dates Dr. Renato Bonilla MD Primary Care Provider Active Start: February 19, 2025 End: February 19, 2025 Dr. Renato Bonilla MD Attending Provider Active Start: February 19, 2025 End: February 19, 2025 Team Status: Inactive Member Role/Relationship Status Dates Dr. Renato Bonilla MD Primary Care Provider Active Start: February 24, 2025 End: February 24, 2025 Dr. Renato Bonilla MD Attending Provider Active Start: February 24, 2025 End: February 24, 2025 Team Status: Active Member Role/Relationship Status Dates Dr. Renato Bonilla MD Primary Care Provider Active Start: February 27, 2025 Dr. Renato Bonilla MD Attending Provider Active Start: February 27, 2025 Team Status: Inactive Member Role/Relationship Status Dates Dr. Renato Bonilla MD Primary Care Provider Active Start: February 28, 2025 End: March 01, 2025 Dr. Jailene Pierre MD Emergency Provider Active S tart: February 28, 2025 End: March 01, 2025 Dr. Tracy Chow DO Admit Provider Active Start : February 28, 2025 End: March 01, 2025 Dr. Tracy Chow DO Other Provider Active Start : February 28, 2025 End: March 01, 2025 Dr. Erik Hylton MD Other Provider Active Sta rt: February 28, 2025 End: March 01, 2025 Dr. José Luis Leach DO Other Provider Active St art: February 28, 2025 End: March 01, 2025 JENNIFER Bates Other Provider Active Start : February 28, 2025 End: March 01, 2025 JENNIFER Garner Other Provider Active St art: February 28, 2025 End: March 01, 2025 KISHA Lance Other Provider Active Star t: February 28, 2025 End: March 01, 2025 Dr. Ruben Whitley DO Attending Provider Active Start: February 28, 2025 End: March 01, 2025 Team Status: Active Member Role/Relationship Status Dates Dr. Renato Bonilla MD Primary Care Provider Active Start: February 28, 2025 Dr. Jailene Pierre MD Emergency Provider Active S tart: February 28, 2025 Dr. Tracy Chow DO Admit Provider Active Start : February 28, 2025 Dr. Tracy Chow DO Other Provider Active Start : February 28, 2025 Dr. Erik Hylton MD Other Provider Active Sta rt: February 28, 2025 Dr. José Luis Leach DO Attending Provider Active Start: February 28, 2025 Dr. José Luis Leach DO Other Provider Active St art: February 28, 2025 JENNIFER Bates Other Provider Active Start : February 28, 2025 JENNIFER Garner Other Provider Active St art: February 28, 2025 KISHA Lance Other Provider Active Star t: February 28, 2025 Team Status: Active Member Role/Relationship Status Dates Dr. Renato Bonilla MD Primary Care Provider Active Start: March 01, 2025 Dr. Jailene Pierre MD Emergency Provider Active S tart: March 01, 2025 Dr. Tracy Chow DO Admit Provider Active Start : March 01, 2025 Dr. Tracy Chow DO Other Provider Active Start : March 01, 2025 Dr. Erik Hylton MD Other Provider Active Sta rt: March 01, 2025 Dr. José Luis Leach , Other Provider Active St art: March 01, 2025 JENNIFER Bates Other Provider Active Start : March 01, 2025 JENNIFER Garner Other Provider Active St art: March 01, 2025 KISHA Lance Other Provider Active Star t: March 01, 2025 Dr. Ruben Whitley DO Attending Provider Active Start: March 01, 2025 Dr. Ruben Whitley DO Other Provider Active Start: March 01, 2025 Reason for Visit (unrecogniz ed section and content) Reason Comments New Patient Referral for AAA w/o ruptureCT Aneurysm c/a/p 06/08/23 @1000 Specialty Diagnoses / Procedures Referred By Contac t Referred To Contact Vascular Surgery Diagnoses Aortic aneurysm without rupture, unspecified portion of aorta Deborah Hall MD [facility] [address] [place] [address] Referral ID Status Reason Start Date Expiration Date V isits Requested Visits Authorized [id number] New Request 05/22/2023 06/15/2024 1 1 Specialty Diagnoses / Procedures Referred By Contac t Referred To Contact Diagnoses Abdominal aortic aneurysm (AAA) without rupture, unspecified part Procedures CT ANEURYSM STUDY WITH AND WITHOUT CONTRAST CHEST/ABDOMEN/PELVIS WI CT ANGIO ABD&PLVIS CNTRST MTRL W/WO CNTRST IMGES WI CT ANGIO, CHEST (NON-CORON), COMBO, INCL IMG PROC Lynn Richardson MD [address] [place] [address] Referral ID Status Reason Start Date Expiration Date Visits Re quested Visits Authorized [id number] Closed 06/01/2023 06/25/2024 1 1 Reason Comments Follow-up Specialty Diagnoses / Procedures Referred By Contac t Referred To Contact Diagnoses Penetrating ulcer of aorta Procedures CT ANEURYSM STUDY WITH AND WITHOUT CONTRAST CHEST/ABDOMEN/PELVIS WI CT ANGIO ABD&PLVIS CNTRST MTRL W/WO CNTRST IMGES WI CT ANGIO, CHEST (NON-CORON), COMBO, INCL IMG PROC Lynn Richardson MD [address] [place] [address] Referral ID Status Reason Start Date Expiration Date Visits Re quested Visits Authorized [id number] Closed 06/08/2023 07/02/2024 1 1 Specialty Diagnoses / Procedures Referred By Contac t Referred To Contact Diagnoses Penetrating atherosclerotic ulcer of aorta Procedures CT ANGIO CHEST (NONCORONARY) WI CT ANGIO, CHEST (NON-CORON), COMBO, INCL IMG PROC Christelle Mariano PA-C [address] [place] [address] Referral ID Status Reason Start Date Expiration Date Visits Re quested Visits Authorized [id number] Closed 01/19/2024 10/08/2024 1 1 Reason Comments Follow-up REVm prev GFR >60. * CTA CHEST @ 8AM-6 mo w/cta Reason Comments Abstract Reason Comments New Patient Syncope & Collapse/ SVT Reason Comments Multiple Complaints Specialty Diagnoses / Procedures Referred By Contac t Referred To Contact Diagnoses Near syncope Atherosclerotic ulcer of aorta Chest pain Procedures Easton Foster MD [address] [place] [address] Phone: tel: fax: [facility] [address] [place] [phone] Phone: tel: Referral ID Status Reason Start Date Expiration Date Visits Re quested Visits Authorized [id number] 1 1 Source Comments (unrecognize d section and content) In the event this informatio n is protected by the Federal Confidentiality of Alcohol and Drug Abuse Patient Records regulations: The Federal rules restrict any use of the information to criminally investigate or prosecute any alcohol or drug abuse patient.[facility] the event this information is protected by the Federal Confidentiality of Alcohol and Drug Abuse Patient Records regulations: The Federal rules restrict any use of the information to criminally investigate or prosecute any alcohol or drug abuse patient.[facility] the event this information is protected by the Federal Confidentiality of Alcohol and Drug Abuse Patient Records regulations: The Federal rules restrict any use of the information to criminally investigate or prosecute any alcohol or drug abuse patient.[facility] Scheduled Active and Recently Administ ered Medications (unrecognized section and content) Medication Order 10/16/2024 10/17/2024 10/18/2024 amLODIPine (Norvasc) tablet 10 mg (CANCELED) 10 mg, oral, Nightly, First dose on Jeanne 10/17/24 at 2100 2010 (Given - Provider: Yolanda Murrell RN) amLODIPine (Norvasc) tablet 5 mg 5 mg, oral, Nightly, First dose (after last modification) on Mon10/18/24 at 2100 2100 (Due) aspirin EC tablet 81 mg 81 mg, oral, Nightly, First dose on Mon10/17/24 at 2100, Do not crush, chew, or split. 2009 (Given - Provider: Yolanda Murrell, TJ) 2100 (Due) atorvastatin (Lipitor) tablet 40 mg 40 mg, oral, Nightly, First dose on Mon10/17/24 at 2100 2008 (Given - Provider: Yolanda Murrell, TJ) 2100 (Due) enoxaparin (Lovenox) syringe 40 mg 40 mg, subcutaneous, Every 24 hours, First dose on Mon10/17/24 at 1800, Indications: deep vein thrombosis prevention 1833 (Not Given - Provider: Yoly Beasley RN - Reason: Patient/family refused) 1800 (Due) ferrous sulfate tablet 325 mg 325 mg, oral, Every other day, First dose on Mon10/18/24 at 0900 0803 (Given - Provid er: Latisha Kaur RN) iohexol (OMNIPaque) 350 mg iodine/mL solution 70 mL (COMPLETED) 70 mL, intravenous, Once in imaging, Starting on Mon10/17/24 at 1222, For 1 dose 1224 (Given - Provider: Katharina Young) losartan (Cozaar) tablet 50 mg 50 mg, oral, Nightly, First dose on Mon10/17/24 at 2100, On hold since Mon10/17/2024 at 1947 until manually unheld 1946 (Held by provider - Provider: Jak Schaeffer MD - Reason: Change in vital signs)2099 (Dose Auto Held - Provider: Jak Schaeffer MD) 2099 (Dose Auto Held - Provider: Jak Schaeffer MD) sodium chloride 0.9 % bolus 500 mL (COMPLETED) 500 mL, intravenous, at 500 mL/hr, Administer over 1 Hours, Once, On Mon10/17/24 at 1055, For 1 dose 1055 (New Bag - Provider: Mary King RN)1155 (Stopped - Provider: Mary King RN) Continuous Medication Order 10/16/2024 10/17/2024 10/18/2024 sodium chloride 0.9% infusion 125 mL/hr, intravenous, Continuous, Starting on Mon10/17/24 at 1055, For 1 day 1156 (New Bag - Provider: Mary King RN)1432 (Rate/Dose Verify - Provider: Mary King RN)1631 (Rate/Dose Verify - Provider: Mary King RN)1857 (Rate/Dose Verify - Provider: Yoly Beasley RN)1858 (Rate/Dose Verify - Provider: Yoly Beasley RN) 0550 (New Bag - Provider: Yolanad Murrell RN - Comment: [Order ends at this time. Document the following action when infusion is complete: Stopped])0930 (Stopped - Provider: Latisha Kaur RN - Comment: verbal order from Dr. García to stop IV fluids) PRN Medication Order 10/16/2024 10/17/2024 10/18/2024 acetaminophen (Tylenol) tablet 650 mg 650 mg, oral, Every 6 hours PRN, pain mild (1-3), first line, pain moderate (4-6), first line, Starting on Jeanne 10/17/24 at 1626, If ordered PRN for pain, nurse is permitted to administer this medication for higher pain scores based on patient preference? Yes melatonin tablet 3 mg 3 mg, oral, Nightly PRN, sleep, Starting on Jeanne 10/17/24 at 1627 ondansetron (Zofran) injection 4 mg 4 mg, intravenous, Every 6 hours PRN, nausea/vomiting, first line, Starting on Jeanne 10/17/24 at 1627, When administering via IV Push, administer over 3-5 minutes. FOR RECORDS PERTAINING TO PATIENTS WHO ARE [...] BE BASED ON THE PRIMARY CLINICAL RECORDS. [employer] [facility]. provides no warranty or guarantee of the accuracy or completeness of information in this document.
[2025-03-10 06:52] LABS: Hematocrit 29.9 % (37-47); Hemoglobin 9.8 g/dL (12.0-15.0); Immature Granulocytes Count 0.010 X10^3/uL (0.0-0.0); Mean Corp Hgb Conc 32.8 g/dL (32-36); Mean Corpuscular Volume 98.0 fL (81-99); Mean Platelet Vol. 8.7 fl (6.2-12.0); NRBC Flagged by Analyzer 0 % (0-5); Platelet Count 327 K/mm3 (150-450); RBC Distribution Width CV 14.6 % (11.6-14.6); RBC Distribution Width SD 52.0 fl (35.1-43.9); Red Blood Count 3.05 M/mm3 (4.2-5.4); White Blood Count 3.4 K/mm3 (4.4-11.0)
== END | disposition home or self-care (01) ==
LOC: LAB 06:23
PROVIDERS: PCP Family Medicine Geriatric Medicine; Referring Provider Family Medicine Geriatric Medicine; Visit Provider Family Medicine Geriatric Medicine
DX: D62 Acute posthemorrhagic anemia (principal); I10 Essential (primary) hypertension; K25.9 Gastric ulcer, unspecified as acute or chronic, without hemorrhage or perforation; K92.1 Melena
CPT/HCPCS: 36415; 85025

== ENCOUNTER → 2025-04-22 | Outpatient (CLI) | payer OTHER, SELFPAY ==
[2025-04-22 22:50] LABS: AST(SGOT) 38 U/L (<=31); Alanine Aminotransfer ALT/SGPT 25 U/L (<=34); Albumin, Serum 4.7 g/dL (3.4-4.8); Alkaline Phosphatase 88 U/L (35-104); Anion Gap 11 (5-15); BUN 16 mg/dL (4-19); BUN/Creat Ratio 16.0 RATIO (10-20); Calcium,Total 9.4 mg/dL (7.6-11.0); Carbon Dioxide 26.6 mmol/L (21.0-32.0); Chloride 104 mmol/L (98-108); Cholesterol 171 mg/dL (<=200); Globulin 2.7 g/dL (2.2-4.2); Glucose 80 mg/dL (70-99); Hematocrit 39.1 % (37-47); Hemoglobin 12.2 g/dL (12.0-15.0); Immature Granulocytes Count 0.010 X10^3/uL (0.0-0.0); Low Density Lipoprotein Calc. 67 mg/dL; Mean Corp Hgb Conc 31.2 g/dL (32-36); Mean Corpuscular Volume 99.0 fL (81-99); Mean Platelet Vol. 9.8 fl (6.2-12.0); NRBC Flagged by Analyzer 0 % (0-5); Platelet Count 203 K/mm3 (150-450); Potassium 4.1 mmol/L (3.3-5.1); RBC Distribution Width CV 13.5 % (11.6-14.6); RBC Distribution Width SD 49.5 fl (35.1-43.9); Red Blood Count 3.95 M/mm3 (4.2-5.4); Triglycerides 83 mg/dL; Very Low Density Lipoprotein 17 mg/dL (5-40); Vitamin D,25 Hydroxy 39.1 ng/mL (30-100); White Blood Count 4.3 K/mm3 (4.4-11.0); cholesterol:hdl ratio screen 1.92
== END | disposition home or self-care (01) ==
LOC: POLAB3 16:35
PROVIDERS: PCP Family Medicine Geriatric Medicine; Referring Provider Family Medicine Geriatric Medicine; Visit Provider Family Medicine Geriatric Medicine
DX: I10 Essential (primary) hypertension (principal); E78.5 Hyperlipidemia, unspecified; E55.9 Vitamin D deficiency, unspecified
CPT/HCPCS: 36415; 80053; 80061; 82306; 84443; 85025

== ENCOUNTER 2025-06-24 10:54 | Day surgery (SDC) | payer OTHER, SELFPAY ==
--- NOTE | 2025-06-20 19:05 | PAT.ANE_ITS ---
Pre-Assessment Diagnosis/Proposed Procedure Planned Operative Procedure(s): EGD Anesthesia History Anesthesia History - licensed marriage and family therapist: Anesthesia History - licensed marriage and family therapist Hx Hospitalization Yes 06/20/25 14:37 Any Problems With Anesthesia No 06/20/25 14:37 Cholinesterase deficiency No 06/20/25 14:37 You/Your Family Experience No 06/20/25 14:37 fever (hyperthermia) with Relationship Recent Exposure to Contagious No 06/19/23 10:36 Disease Does patient have nerve No 06/20/25 14:37 stimulator Patient instructed to have device shut off --Does patient have Pacemaker or ICD? When Was Last Pacemaker Check QUESTION #4 FULL TEXT: You/Your Family Experience fever (hyperthermia) with Anesthesia Last Oral Intake Last Oral intake: Last Oral Intake NPO since Meds taken in AM with sips of water? Meds patient instructed to take am of surgery PONV PONV - licensed marriage and family therapist: PONV - licensed marriage and family therapist Female Yes 06/20/25 14:37 HX of Motion Sickness No 06/20/25 14:37 HX of N/V After Surgery No 06/20/25 14:37 Non-Smoker Yes 06/20/25 14:37 Duration of Surgery greater No 06/20/25 14:37 than 60 minutes Number of Risk Factors 2 06/20/25 14:37 PONV Score Moderate Risk 06/20/25 14:37 Height & Weight Height & Weight: Anesthesia: Height & Weight Height 5 ft 3 in 06/03/25 11:06 Respiratory Assessment Respiratory Assessment - licensed marriage and family therapist: Respiratory Tract Infection Hx - licensed marriage and family therapist Hx Respiratory Tract Infection No 06/20/25 14:37 STOP Sleep Apnea STOP Sleep Apnea - licensed marriage and family therapist: STOP Sleep Apnea - licensed marriage and family therapist Hx Hypertension Yes: CONTROLLED ON MED 06/20/25 14:37 Hx Sleep Apnea No 06/20/25 14:37 CPAP BIPAP Do you snore loudly (louder No 06/20/25 14:37 than talking or can be heard Do you often feel tired/ No 06/20/25 14:37 fatigued/ sleepy during daytime? Has anyone observed you stop No 06/20/25 14:37 breathing during sleep? STOP Results Negative 06/20/25 14:37 QUESTION #5 FULL TEXT : Do you snore loudly (louder than talking or can be heard through closed doors)? Tobacco Use History Tobacco Use History - licensed marriage and family therapist: Tobacco Use History - licensed marriage and family therapist Tobacco Use Smoking Status Former smoker 06/20/25 14:37 Hx Tobacco Use Yes 06/20/25 14:37 Years Smoking Packs Smoked per Day Smoking Cessation Date was Yes - quit smoking within 15 06/20/25 14:37 within the last 15 years years Hx Smoking Cessation Date 10/05/21 06/20/25 14:37 Hx Smoking Cessation Counseling Hematologic Medial History Hematologic Hx - licensed marriage and family therapist: Hematologic Medical Hx - label fuser tender Hx of Blood Transfusion Yes 06/20/25 14:37 Hx of Transfusion in last 3 Yes 06/20/25 14:37 Months Date of Last Transfusion (if 02/28/2025 06/20/25 14:37 within last 3 months) Ever experience any problems No 06/20/25 14:37 with transfusion(s)? Specify any problems Hx of Preganancy in last 3 No 06/20/25 14:37 Months Nurse Filling Out Transfusion VCHRISTIN 06/20/25 14:37 & Questions: Date: 06/20/25 06/20/25 14:37 Time: 14:38 06/20/25 14:37 Patient unable to answer at this time (ie. confused, unrespo /Reproduction History /Reproductive History - licensed marriage and family therapist: /Reproductive Hx- licensed marriage and family therapist Hx Now No 06/20/25 14:37 Gestational Age (in weeks): EDC: Hx Hx Para Hx Section SAB No 06/20/25 14:37 Does the father of the baby or his family experience fever w Father of the baby Malignant Hypertension history comment [facility] Medical History (Updated 06/20/25 @ 14:37 by Lian Montenegro) Wears glasses High cholesterol History of Holter monitoring AAA (abdominal aortic aneurysm) Palpitations Dyslipidemia Raynauds phenomenon Coronary artery disease Hypokalemia Abnormal findings diagnostic imaging of heart and coronary circulation (06/07/23) Atherosclerotic heart disease of [place] coronary artery without angina pectoris (06/07/23) 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) Anxiety Shortness of breath on exertion History of echocardiogram History of stress test Cardiology follow-up encounter History of irregular heartbeat Guaiac positive stools Abnormal ECG Anemia Blood in stool Pseudoaneurysm of aorta Fatigue Syncope Vitamin D deficiency Major depressive disorder, recurrent episode, in full remission Lightheadedness Numbness and tingling in both hands Bradycardia Wears contact lenses Post-menopausal Excessive bleeding Easy bruising Restless legs Back pain History of IBS Former smoker Encounter for screening for malignant neoplasm of colon Muscle spasm Hyperlipidemia Hypertension Home Medications ?Medication ?Instructions ?Recorded ?Last Taken ?Type magnesium oxide 400 mg PO DAILY 11/12/21 Unk nown History cholecalciferol (vitamin D3) 25 25 mcg PO DAILY Unknown History mcg (1,000 unit) tablet (Vitamin D3) aspirin 81 mg tablet,delayed 81 mg PO DAILY 06/12/23 1 08/21/24 History release (Adult Aspirin Regimen) calcium carbonate (Calcium 600) 600 mg PO DAILY Unknown History ferrous sulfate 325 mg (65 mg 325 mg PO Q OTHER DAY 06/20/25 History iron) tablet (FeroSul) losartan 50 mg tablet 50 mg PO DAILY #90 tabs 06/03 01/23 Unknown Rx amlodipine 5 mg tablet 5 mg PO DAILY #90 tabs 02/19 Unknown Rx vibegron 75 mg tablet (Gemtesa) 75 mg PO DAILY 5 Unknown History ascorbic acid (vitamin C) 1,000 mg 1,000 mg PO DAILY 1 08/04/24 Unknown History capsule atorvastatin 40 mg tablet 40 mg PO QHS #90 tabs Unknown Rx pantoprazole 40 mg tablet,delayed 40 mg PO QDAY Unknown History release Allergy/AdvReac Type Severity Reaction Status Date / Time No Known Allergies Allergy Verified 06/20/25 14:25 Family History Mother Hypertension Cancer Arthritis CVA (cerebral vascular accident) Stomach ulcer Father Cancer bladder Grandmother Cancer Uncle Prostate carcinoma Surgical History (Updated 06/20/25 @ 14:37 by Lian Monten[place]ro) History of esophagogastroduodenoscopy (EGD) Stented coronary artery (06/15/23) Hx of hysterectomy Hx of colonoscopy Social History (Updated 06/16/25 @ 15:20 by Gloria Cabrera) household members: spouse Smoking Status: Former smoker alcohol intake: former year quit: 1990 substance use type: does not use caffeine: Yes Type: carbonated beverages Number of servings: 1 what type of physical activity do you participate in: bicycling Audit: Pertinent Findings Pertinent Findings EKG Perinent findings: 02/28/2025. Normal sinus rhythm. Septal infarct, age und etermined. ST and T wave abnormality consider lateral ischemia. T wave inversions in lateral leads seen as far back as 2022 before and after the stent placement. Stress test pertinent findings: 05/02/2023. EKG at baseline showed T wave inversion in the lateral leads. Stress EKG nondiagnostic due to abnormal baseline. Nuclear stress showed no conclusive evidence of reversible ischemia. EF of 63%. (See cath) Echo (EF%) pertinent findings: 10/18/2024. EF is 60 to 65%. 05/01/2023. EF of 55 to 60%. No aortic stenosis. Aortic root is dilated to 3.8 cm. RVSP is 29 mmHg. Heart catheterization pertinent findings: 06/18/2023. RCA has a mid 80% stenosis. Mild luminal irregularities in other vessels. Successful MARIYA to the mid RCA. Consult pertinent findings: 06/03/2025. Lj RODRIGUEZ. 1. Stented coronary artery-MARIYA to the mid RCA. Latest echo shows EF of 60 to 65%. No symptoms. 2. Syncope-she passed out in April 2023. Latest Holter monitor as below. Most recent tilt test demonstrated vasodepressive syncope. Patient is encouraged to stay hydrated. 3. Pseudoaneurysm of aorta-vascular/thoracic surgery follow status. 4. Cdymssaqnpea-gbvm-dwkepisipd. Continue current meds. 5. SVT. Continue to monitor. Additional pertinent findings: 48-hour Holter. 08/18/2023. Baseline rhythm is normal sinus. VE beats comprise 1.6% of total QRS complexes. No runs noted. SVE beats comprise 0.3% of total QRS complexes. No atrial fibrillation. No symptoms. Recommendation Anesthesia Recommendation Anesthesia recommendation: OPTIMIZED for anesthesia
[2025-06-24] VITALS (9 sets, daily range): BP systolic 112–135; BP diastolic 69–76; PULSE 54–67; RESP 14–16; TEMP 36.1–36.2; O2SAT 96–100; BMI 22.3
[2025-06-24] MEDS: Lactated Ringers 1,000 ML 15 ML IV (11:22)
--- NOTE | 2025-06-24 12:00 | EGD_PTH ---
PATIENT: PORTER MUSA LOC: EN U#:[id number] AGE/SX: 64/F ROOM: RE06/24/[address]: Dr. José Luis Leach DO : 1960 BED: DIS: 06/24/2025 SPEC #: [id number] RECD: 06/24/25 13:02 STATUS: DELORES REKaylie #: [id number] TAHIRA: 06/24/25 12:[address]: José Luis Leach DEPT: SURGICAL PATHOLOGY RECD BY: Janiya Randall ENTERED: 06/24/25 13:48 SP TYPE: EGD BIOPSY OT DR: Dr. Renato Bonilla MD Tissues: Gastric mucous membrane Procedures: Immunohistochemical Stains Surgery Specimen Level IV HEADER OPERATION: EGD with biospy PRE-OP DIAGNOSIS: Gastric ulcer TISSUE SUBMITTED: A. Gastric ulcer biopsy MICROSCOPIC DIAGNOSIS A. Stomach, ulcer, biopsy: - Chronic gastritis with features of reactive gastropathy. - IHC negative for H. pylori organisms. MICROSCOPIC DESCRIPTION Slides are reviewed. All matched controls reacted appropriately. These tests were developed and their performance characteristics determined by [facility]. They may not have been cleared or approved by the U.S. Food and Drug Administration. The FDA has determined that such clearance or approval is not necessary. The above immunohistochemical markers are viewed by the Pathologist. GROSS DESCRIPTION A. Received is one container labeled with the patient name and designated gastric ulcer. The specimen consists of two irregular fragments of marshall tissue that measure 0.4 and 0.5cm. The specimen is totally submitted in one cassette. [place] 06/24/2025 CPT:35863,14204
--- NOTE | 2025-06-24 12:08 | PCM.PRE.AN2 ---
ASA Classification* ASA Classification ASA Classification: 3 Assessment & Plan Anesthesia* Anesthesia Assessment Anesthesia Assessment: Discussed sedation and/or anesthesia options, risks, benefits, and alternatives with patient/parents/legal guardian/POA. Questions invited. The patient/parents/legal guardian/POA seems to understand and agrees to proceed with anesthesia plan. Reviewed the physical assessment, medical history, allergy history and patient home medications list prior to surgery/procedure/anesthetic and documented any changes. Performed airway and anesthesia risk assessments. Anesthesia Type Anesthesia Type: MAC History Source History Obtained from:: Patient and Chart Anesthesia Focused Assessment* Temperature: 97 F Pulse Rate: 54 Blood Pressure: 135/69 Respiratory Rate: 16 Pulse Ox: 100 Oxygen Delivery Method: Room Air Airway Assessment Mouth opens: >3 cm Mallampati Score: III Teeth Condition: Caps/Crowns (Patient has several crowns. They are all tight.) and Partial (Right upper permanent bridge. It is tight.) Neck Range of motion (ROM): Full ROM Labs Anesthesia Preop lab: CBC WBC, (4.4-11.0) 4.3 K/mm3 L 04/22/25, Unknown RBC, (4.2-5.4) 3.95 M/mm3 L 04/22/25, Unknown Hgb, (12.0-15.0) 12.2 g/dL 04/22/25, Unknown Hct, (37-47) 39.1 % 04/22/25, Unknown Plt Count, (150-450) 203 K/mm3 04/22/25, Unknown CHEMISTRY Potassium, (3.3-5.1) 4.1 mmol/L 04/22/25, Unknown Sodium, (133-145) 141 mmol/L 04/22/25, Unknown Magnesium, (1.5-2.2) 2.3 mg/dL H 03/01/25, 07:07 Phosphorus, (2.7-4.5) 3.2 mg/dL 03/01/25, 07:07 BUN, (4-19) 16 mg/dL 04/22/25, Unknown Creatinine, (0.70-1.20) 0.99 mg/dL 04/22/25, Unknown Glucose, (70-99) 80 mg/dL 04/22/25, Unknown POC Glucose, (74-106) 79 mg/dL 07/26/23, 19:58 TSH, (0.300-4.200) 1.090 uIU/mL 04/22/25, Unknown COAG Pre-Assessment Diagnosis/Proposed Procedure Planned Operative Procedure(s): EGD Anesthesia History 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 When Was Last Pacemaker Check QUESTION #4 FULL TEXT: You/Your Family Experience fever (hyperthermia) with Anesthesia Last Oral Intake Last Oral intake: Last Oral Intake NPO since 11:00 06/24/25 11:14 Meds taken in AM with sips of water? Meds patient instructed to take am of surgery PONV PONV - industrial engineering technician: PONV - industrial engineering technician Female Yes 06/20/25 14:37 HX of Motion Sickness No 06/20/25 14:37 HX of N/V After Surgery No 06/20/25 14:37 Non-Smoker Yes 06/20/25 14:37 Duration of Surgery greater No 06/20/25 14:37 than 60 minutes Number of Risk Factors 2 06/20/25 14:37 PONV Score Moderate Risk 06/20/25 14:37 Height & Weight Height & Weight: Anesthesia: Height & Weight Height 5 ft 3 in 06/24/25 11:14 Weight: 57.153 kg 06/24/25 11:14 Body Mass Index (BMI) 22.3 06/24/25 11:14 Respiratory Assessment Respiratory Assessment - industrial engineering technician: Respiratory Tract Infection Hx - industrial engineering technician Hx Respiratory Tract Infection No 06/20/25 14:37 STOP Sleep Apnea STOP Sleep Apnea - industrial engineering technician: STOP Sleep Apnea - industrial engineering technician Hx Hypertension Yes: CONTROLLED ON MED 06/20/25 14:37 Hx Sleep Apnea No 06/20/25 14:37 CPAP BIPAP Do you snore loudly (louder No 06/20/25 14:37 than talking or can be heard Do you often feel tired/ No 06/20/25 14:37 fatigued/ sleepy during daytime? Has anyone observed you stop No 06/20/25 14:37 breathing during sleep? STOP Results Negative 06/20/25 14:37 QUESTION #5 FULL TEXT : Do you snore loudly (louder than talking or can be heard through closed doors)? 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 Specify any problems Hx of Preganancy in last 3 No 06/20/25 14:37 Months Nurse Filling Out Transfusion VCHRISTIN 06/20/25 14:37 & Questions: Date: 06/20/25 06/20/25 14:37 Time: 14:38 06/20/25 14:37 Patient unable to answer at this time (ie. confused, unrespo /Reproduction History /Reproductive History - industrial engineering technician: /Reproductive Hx- industrial engineering technician Hx Now No 06/20/25 14:37 Gestational Age (in weeks): EDC: Hx Hx Para Hx Section SAB No 06/20/25 14:37 Does the father of the baby or his family experience fever w Father of the baby Malignant Hypertension history comment Active Medications Active Medications: Current Medications Generic Name Dose Route Start Last Admin Trade Name Freq PRN Reason Stop Dose Admin Lactated Ringer's 1,000 mls @ 15 mls/hr 06/24/25 11:15 06/24/25 11:22 IV 15 mls/hr .Q48H [id number] Administration PFSH Medical History Wears glasses High cholesterol History of Holter monitoring AAA (abdominal aortic aneurysm) Palpitations Dyslipidemia Raynauds phenomenon Coronary artery disease Hypokalemia Abnormal findings diagnostic imaging of heart and coronary circulation (06/07/23) Atherosclerotic heart disease of [place] coronary artery without angina pectoris (06/07/23) 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) Anxiety Shortness of breath on exertion History of echocardiogram History of stress test Cardiology follow-up encounter History of irregular heartbeat Guaiac positive stools Abnormal ECG Anemia Blood in stool Pseudoaneurysm of aorta Fatigue Syncope Vitamin D deficiency Major depressive disorder, recurrent episode, in full remission Lightheadedness Numbness and tingling in both hands Bradycardia Wears contact lenses Post-menopausal Excessive bleeding Easy bruising Restless legs Back pain History of IBS Former smoker Encounter for screening for malignant neoplasm of colon Muscle spasm Hyperlipidemia Hypertension Home Medications ?Medication ?Instructions ?Recorded ?Last Taken ?Type magnesium oxide 400 mg PO DAILY 11/12/21 Unknown History cholecalciferol (vitamin D3) 25 25 mcg PO DAILY 05/31/23 Unknown History mcg (1,000 unit) tablet (Vitamin D3) aspirin 81 mg tablet,delayed 81 mg PO DAILY 06/12/23 06/20/25 History release (Adult Aspirin Regimen) calcium carbonate (Calcium 600) 600 mg PO DAILY 02/22/24 Unknown History ferrous sulfate 325 mg (65 mg 325 mg PO Q OTHER DAY 02/22/24 06/20/25 History iron) tablet (FeroSul) losartan 50 mg tablet 50 mg PO DAILY #90 tabs 06/28/24 06/23/25 Rx amlodipine 5 mg tablet 5 mg PO DAILY #90 tabs 02/19/25 06/23/25 Rx vibegron 75 mg tablet (Gemtesa) 75 mg PO DAILY 02/28/25 06/23/25 History ascorbic acid (vitamin C) 1,000 mg 1,000 mg PO DAILY 06/03/25 Unknown History capsule atorvastatin 40 mg tablet 40 mg PO QHS #90 tabs 06/03/25 Unknown Rx pantoprazole 40 mg tablet,delayed 40 mg PO QDAY 06/03/25 Unknown History release Allergy/AdvReac Type Severity Reaction Status Date / Time No Known Allergies Allergy Verified 06/24/25 11:13 Family History Mother Hypertension Cancer Arthritis CVA (cerebral vascular accident) Stomach ulcer Father Cancer bladder Grandmother Cancer Uncle Prostate carcinoma Surgical History History of esophagogastroduodenoscopy (EGD) Stented coronary artery (06/15/23) Hx of hysterectomy Hx of colonoscopy Social History household members: spouse Smoking Status: Former smoker alcohol intake: former year quit: 1990 substance use type: does not use caffeine: Yes Type: carbonated beverages Number of servings: 1 what type of physical activity do you participate in: bicycling Review of Systems (Anesthesia) ROS Narrative System reviewed and no additional complaints, except as documented.
--- NOTE | 2025-06-24 12:20 | PCM.HP.STD ---
HPI - General General Date of Admission: 06/24/25 Date of Service: 06/24/25 Chief Complaint: Gastric ulcer HPI Narrative PORTER MUSA, is a 64 F who presents [Chief Complaint: Gastric ulcer follow-up The patient, with a history of a stent placement and an aneurysm, presents feeling well following a major upper gastrointestinal bleed from a large stomach ulcer that was treated endoscopically. She reports no pain at the time of the bleeding and notes that the blood loss caused functional limitation. Endoscopic intervention included injection with epinephrine, cauterization, and placement of clips. She previously took large amounts of Excedrin but largely stopped about two years ago; in the week prior to the bleeding she took a couple doses and otherwise has been using Tylenol. She uses nicotine pouches and quit smoking approximately 3?3.5 years ago. She was told the ulcer nearly perforated. A colleague?s report was read over the weekend and did not show signs of ongoing bleeding. 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) Anxiety Shortness of breath on exertion History of echocardiogram History of stress test Cardiology follow-up encounter History of irregular heartbeat Guaiac positive stools Abnormal ECG Anemia Blood in stool Pseudoaneurysm of aorta Fatigue Syncope Vitamin D deficiency Major depressive disorder, recurrent episode, in full remission Lightheadedness Numbness and tingling in both hands Bradycardia Wears contact lenses Post-menopausal Excessive bleeding Easy bruising Restless legs Back pain History of IBS Former smoker Encounter for screening for malignant neoplasm of colon Muscle spasm Hyperlipidemia Hypertension Home Medications ?Medication ?Instructions ?Recorded ?Last Taken ?Type magnesium oxide 400 mg PO DAILY 11/12/21 Unknown History cholecalciferol (vitamin D3) 25 25 mcg PO DAILY 05/31/23 Unknown History mcg (1,000 unit) tablet (Vitamin D3) aspirin 81 mg tablet,delayed 81 mg PO DAILY 06/12/23 06/20/25 History release (Adult Aspirin Regimen) calcium carbonate (Calcium 600) 600 mg PO DAILY 02/22/24 Unknown History ferrous sulfate 325 mg (65 mg 325 mg PO Q OTHER DAY 02/22/24 06/20/25 History iron) tablet (FeroSul) losartan 50 mg tablet 50 mg PO DAILY #90 tabs 06/28/24 06/23/25 Rx amlodipine 5 mg tablet 5 mg PO DAILY #90 tabs 02/19/25 06/23/25 Rx vibegron 75 mg tablet (Gemtesa) 75 mg PO DAILY 02/28/25 06/23/25 History ascorbic acid (vitamin C) 1,000 mg 1,000 mg PO DAILY 06/03/25 Unknown History capsule atorvastatin 40 mg tablet 40 mg PO QHS #90 tabs 06/03/25 Unknown Rx pantoprazole 40 mg tablet,delayed 40 mg PO QDAY 06/03/25 Unknown History release Allergy/AdvReac Type Severity Reaction Status Date / Time No Known Allergies Allergy Verified 06/24/25 11:13 Family History Mother Hypertension Cancer Arthritis CVA (cerebral vascular accident) Stomach ulcer Father Cancer bladder Grandmother Cancer Uncle Prostate carcinoma Surgical History History of esophagogastroduodenoscopy (EGD) Stented coronary artery (06/15/23) Hx of hysterectomy Hx of colonoscopy Social History household members: spouse Smoking Status: Former smoker alcohol intake: former year quit: 1990 substance use type: does not use caffeine: Yes Type: carbonated beverages Number of servings: 1 what type of physical activity do you participate in: bicycling ROS Constitutional Constitutional: Denies fatigue, fever(s), poor appetite, weight gain or weight loss Gastrointestinal Gastrointestinal: Denies belching, bloating, change in bowel habits, change in stool character, chewing difficulty, coffee ground emesis, constipation, cramping, diarrhea, dyspepsia, dysphagia, early satiety, excessive flatus, fecal incontinence, heartburn, hematemesis, hematochezia, hemorrhoids, loose stools, melena, nausea, odynophagia, rectal bleeding, tenesmus, vomiting or weight changes Patient's Goals Of Care . What would you like to achieve or improve as a result of your hospital stay?: none Vital Signs Vital Signs Vital Signs: 06/24/25 11:14 06/24/25 11:14 06/24/25 11:14 Temperature 97 F L Temperature Source Temporal Pulse Rate 54 L Respiratory Rate 16 Respiratory Pattern Normal Blood Pressure 135/69 H Blood Pressure Mean 91 Blood Pressure Source Monitor Blood Pressure Position Semi-Fowlers Blood Pressure Location Left Arm Baseline BP 135/69 Pulse Ox 100 Oxygen Delivery Method Room Air 06/24/25 12:12 Temperature 97 F L Temperature Source Pulse Rate 54 L Respiratory Rate 16 Respiratory Pattern Blood Pressure 135/69 H Blood Pressure Mean Blood Pressure Source Blood Pressure Position Blood Pressure Location Baseline BP Pulse Ox 100 Oxygen Delivery Method Room Air Weight Weight: 126 lb Body Mass Index (BMI) 22.3 Physical Exam Const alert, oriented x3, no apparent distress and healthy appearing General Appearance: cooperative GI normal to inspection, nondistended, normoactive bowel sounds, soft to palpation, non-tender and non-distended Percussion: normal to percussion Rectal Exam: deferred Assessment & Plan Assessment/Plan (1) Gastric ulcer: (2) Anemia: PLAN: Assessment and Plan Assessment and Plan (1) Anemia: Status: Chronic Plan: Gastric ulcer with recent upper gastrointestinal bleeding, status post endoscopic hemostasis : Large gastric ulcer treated endoscopically with epinephrine injection, cauterization, and clips after major bleed; patient asymptomatic and a recent report did not show ongoing bleeding. Near-perforation risk and complications discussed. Prior heavy Excedrin use and recent intermittent use are likely contributing factors; patient has switched to Tylenol. - Return for repeat evaluation to ensure complete healing; patient agrees - Continue acid-reducing medication as previously prescribed because of history of major gastrointestinal bleeding Aneurysm : Patient reports history of an aneurysm; location and current status not specified. History of stent placement : Patient reports prior stent placement; type and indication not specified. Portions of this note were generated using voice recognition software ([employer] ([employer] Dictation). I have reviewed the contents and every effort has been made to ensure accuracy; however, inadvertent errors in grammar, spelling, punctuation, or word choice may occur, that were not noted before signing the document and should not alter the intended clinical meaning.
--- NOTE | 2025-06-24 12:56 | PCM.POST.ANE ---
Anesthesia: Postop Eval I Current Vital Signs Temperature: 97.2 F Pulse Rate: 67 Blood Pressure: 112/75 Respiratory Rate: 16 Pulse Ox: 96 Oxygen Delivery Method: Room Air Assessment Airway patent: Yes Spontaneous unlabored respirations: Yes Mental status: Asleep nausea: No Vomiting: No Anesthesia Complication: No Fluid Hydration Crystalloid volume administer (ml): 400 Total IV fluid infused: 400 Progress Note Anesthesia document: Postop Eval 1 completed: Yes
--- NOTE | 2025-06-24 13:02 | OP.PROVAT_ITS ---
06/24/2025 Renato Bonilla MD [address] [place] [address] Re : Upper GI endoscopy procedure for Amie Ryan Dear Dr. Bonilla This procedure was performed on Tuesday, June 24, 2025. My impressions and recommendations are as follows: Impressions : - Normal esophagus. - Non-bleeding gastric ulcer with no stigmata of bleeding. Biopsied. - No gross lesions in the entire examined duodenum. Recommendations : - Discharge patient to home. - Resume previous diet. - Continue present medications. - Await pathology results. - Repeat upper endoscopy in 6 months to check healing. My findings are described in the full procedure note, which is enclosed. If I can be of further assistance, please feel free to contact me at . Sincerely, José Luis Leach, 06/24/2025 1:01:48 PM This report has been signed electronically.
--- NOTE | 2025-06-24 13:02 | OP.EGD_ITS ---
Patient Name: Amie Ryan Procedure Date: 06/24/2025 12:34 PM Date of : 1960 Age: 64 Procedure: Upper GI endoscopy Indications: Peptic ulcer Providers: José Luis Leach DO Medicines: Monitored Anesthesia Care Patient Profile: This is a 64 year old female. Refer to note in patient chart for documentation of history and physical. Patient has symptoms of chronic epigastric abdominal pain. Complications: No immediate complications. Procedure: Pre-Anesthesia Assessment: - Prior to the procedure, a History and Physical was performed, and patient medications and allergies were reviewed. The patient is competent. The risks and benefits of the procedure and the sedation options and risks were discussed with the patient. All questions were answered and informed consent was obtained. Patient identification and proposed procedure were verified by the physician in the pre-procedure area. Mental Status Examination: alert and oriented. Airway Examination: normal oropharyngeal airway and neck mobility. Respiratory Examination: clear to auscultation. CV Examination: normal. Prophylactic Antibiotics: The patient does not require prophylactic antibiotics. Prior Anticoagulants: The patient has taken no anticoagulant or antiplatelet agents. ASA Grade Assessment: II - A patient with mild systemic disease. After reviewing the risks and benefits, the patient was deemed in satisfactory condition to undergo the procedure. The anesthesia plan was to use monitored anesthesia care (MAC). Immediately prior to administration of medications, the patient was re-assessed for adequacy to receive sedatives. The heart rate, respiratory rate, oxygen saturations, blood pressure, adequacy of pulmonary ventilation, and response to care were monitored throughout the procedure. The physical status of the patient was re-assessed after the procedure. After obtaining informed consent, the endoscope was passed under direct vision. Throughout the procedure, the patient's blood pressure, pulse, and oxygen saturations were monitored continuously. The gastroscope was introduced through the mouth, and advanced to the third part of the duodenum. Small bowel enteroscopy was deemed necessary. The upper GI endoscopy was accomplished without difficulty. The patient tolerated the procedure well. Scope In: 12:44:19 PM Scope Out: 12:48:11 PM Total Procedure Duration Time 0 hours 3 minutes 52 seconds Findings: The examined esophagus was normal. One non-bleeding linear gastric ulcer with no stigmata of bleeding was found in the gastric antrum. The lesion was 10 mm in largest dimension. Biopsies were taken with a cold forceps for histology. Verification of patient identification for the specimen was done. Estimated blood loss was minimal. No gross lesions were noted in the entire examined duodenum. Impression: - Normal esophagus. - Non-bleeding gastric ulcer with no stigmata of bleeding. Biopsied. - No gross lesions in the entire examined duodenum. Recommendation: - Discharge patient to home. - Resume previous diet. - Continue present medications. - Await pathology results. - Repeat upper endoscopy in 6 months to check healing. Procedure Code(s): --- Professional --- 70606, Small intestinal endoscopy, enteroscopy beyond second portion of duodenum, not including ileum; with biopsy, single or multiple CPT copyright 2021 [employer]. All rights reserved. The codes documented in this report are preliminary and upon naval marine engineer review may be revised to meet current compliance requirements. José Luis Leach DO 06/24/2025 1:01:48 PM This report has been signed electronically. Number of Addenda: 0 Note Initiated On: 06/24/2025 12:34 PM
--- NOTE | 2025-06-24 18:15 | PCM.POSTANE2 ---
Anesthesia Postop Eval I Sum Postop Eval Completion status Anesthesia document: Postop Eval 1 completed: Yes Anesthesia Postop Eval I Summary Anesthesia Postop Eval I Summary: Anesthesia Postop Eval I: Assessment Summary Airway patent Yes 06/24/25 12:57 [email or web address] Spontaneous unlabored Yes 06/24/25 12:57 [email or web address] respirations Mental status Asleep 06/24/25 12:57 [email or web address] nausea No 06/24/25 12:57 [email or web address] Vomiting No 06/24/25 12:57 [email or web address] Anesthesia Postop Eval I: Fluid Summary Crystalloid volume administer 400 06/24/25 12:57 [email or web address] (ml) Colloids volume administered ( ml) Blood Product volume administered (ml) Total IV fluid infused 400 06/24/25 12:57 [email or web address] Anesthesia Postop Eval I: Summary Notes Anesthesia Complication No 06/24/25 12:57 [email or web address] Anesthesia Complication Comment: Post-operative progress note Anesthesia: Postop Eval II Evaluation Mental status: Awake and Calm Pain Level: 0 nausea: No Vomiting: No Complications Anesthesia Complication: No
== END 2025-06-24 13:43 | disposition home or self-care (01) ==
LOC: EN 10:56 → AC 10:56
PROVIDERS: PCP Family Medicine Geriatric Medicine; Referring Provider Family Medicine Geriatric Medicine; Visit Provider Internal Medicine Gastroenterology
PROC: 0DJ08ZZ Inspection of Upper Intestinal Tract, Via Natural or Artificial Opening Endoscopic (ICD-10-PCS; CPT 43235; principal; 2025-06-24 11:55)
DX: K29.50 Unspecified chronic gastritis without bleeding (principal); D64.9 Anemia, unspecified; I25.10 Atherosclerotic heart disease of native coronary artery without angina pectoris; E78.00 Pure hypercholesterolemia, unspecified; Z79.82 Long term (current) use of aspirin; I10 Essential (primary) hypertension; Z87.891 Personal history of nicotine dependence; Z79.899 Other long term (current) drug therapy
CPT/HCPCS: 44361; 88305; 88342; J2405